=== PATIENT | female | born 1975 | race Hispanic/Latino ===

== ENCOUNTER 2018-02-09 20:45 | Emergency (ER) | payer BC ==
[2018-02-09 21:36] LABS: Absolute Lymphocytes (CBC) 5.5 K/uL (0.7-4.9); Absolute Monocytes 0.5 K/uL (0.1-1.3); Absolute Neutrophil 6.6 K/uL (1.8-8.0); Basophils % 0.8 % (0-1.3); Hematocrit 38.7 % (36.0-45.0); Lymphocytes % 42.6 % (15.3-44.8); MCH 30.3 pg (27.0-35.0); MCV 86.3 fL (80-100); Monocytes % 3.7 % (3.3-12.3); RBC Red Blood Cell Count 4.48 M/uL (3.86-4.86)
--- NOTE | 2018-02-09 21:37 | RAD REPORT ---
EXAM DESCRIPTION: RAD - Chest Single View - 02/09/2018 9:31 pm CLINICAL HISTORY: Chest pain. COMPARISON: 02/08/17 FINDINGS: Portable technique limits examination quality. The lungs are grossly clear. The heart is normal in size. No displaced fractures. IMPRESSION: No acute intrathoracic process suspected.
[2018-02-09 21:45] LABS: Protime INR 0.9
[2018-02-09] MEDS ORDERED: NA CHLORIDE 0.9% 1,000 ML ONE ×2 (21:48→23:51)
[2018-02-09 22:02] LABS: Glucose Level 265 mg/dL (65-120); Lipase 33 U/L (22-51)
[2018-02-09 22:04] LABS: Bicarbonate 23 mEq/L (21-31); Potassium 4.2 mEq/L (3.6-5.0); Sodium Level 133 mEq/L (135-145)
[2018-02-09 22:08] LABS: Albumin 3.6 g/dL (3.2-5.5); Alkaline Phosphatase 60 IU/L (42-121); BUN Blood Urea Nitrogen 13 mg/dL (6-20); Bilirubin Direct 0.3 mg/dL (0-0.2); Bilirubin Total 0.5 mg/dL (0.3-1.2); Magnesium 1.7 mg/dL (1.8-2.5); Protein, Total 7.8 g/dL (6.0-8.3)
[2018-02-09 22:11] LABS: ALT/SGPT 29 IU/L (10-60); AST/SGOT 40 IU/L (10-42); Creatine Phosphokinase 154 IU/L (22-269)
[2018-02-09 22:12] LABS: CKMB Creatine Kinase MB 1.7 ng/ml (0.3-4.0)
[2018-02-09] MEDS ORDERED: ACETAMINOPHEN 500 MG TAB ONE (23:16)
[2018-02-10 00:07] LABS: Urine Blood 1+ (NEG); Urine Glucose 2+ (NEG)
[2018-02-10 00:08] LABS: Urine Protein NEGATIVE (NEG)
--- NOTE | 2018-02-10 00:32 | ER ---
Nurse's Notes [facility] Name: Amie Irizarry Age: 42 yrs Sex: Female : 1975 Arrival Date: 02/09/2018 Time: 20:51 Bed 30 Private MD: Diagnosis: Dyspnea;Type 2 diabetes mellitus;Other chest pain Presentation: 02/09 20:52 Presenting complaint: Patient states: "I had strep and a sinus infection 2 weeks ago. I lk1 got an injection and 10 days on antibiotics. The cough never stopped and the last 4 days I have had chest tightness and not been able to catch my breath.". Transition of care: patient was not received from another setting of care. Onset of symptoms was February 05, 2018. Initial Sepsis Screen: Does the patient meet any 2 criteria? No. Patient's initial sepsis screen is negative. Does the patient have a suspected source of infection? No. Patient's initial sepsis screen is negative. Care prior to arrival: None. 20:52 Method Of Arrival: Ambulatory lk1 20:52 Acuity: JOSÉ 3 lk1 Triage Assessment: 20:54 General: Appears uncomfortable, ill, Behavior is calm, cooperative, appropriate for lk1 age. Pain: Complains of pain in back and chest Pain currently is 8 out of 10 on a pain scale. Respiratory: Reports cough that is dry, persistent Airway is patent Respiratory effort is even, unlabored, Respiratory pattern is regular, symmetrical, Onset: The symptoms/episode began/occurred 2 weeks ago, the patient has moderate shortness of breath. 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 - Social history:: Smoking status: Patient/guardian denies using tobacco. Screenin:39 Abuse screen: Denies threats or abuse. Nutritional screening: No deficits noted. tl3 Tuberculosis screening: No symptoms or risk factors identified. Fall Risk None identified. Assessment: 21:45 General: Appears distressed, uncomfortable, well groomed, well developed, well tl3 nourished, Behavior is cooperative, appropriate for age, restless. Pain: Complains of pain in chest and back. Neuro: Level of Consciousness is awake, alert, obeys commands, Oriented to person, place, time, situation, Appropriate for age. Cardiovascular: Capillary refill < 3 seconds in bilateral fingers Patient's skin is warm and dry. Rhythm is regular. Respiratory: Airway is patent Trachea midline Breath sounds are clear bilaterally. GI: Reports posttussive emesis. : No signs and/or symptoms were reported regarding the genitourinary system. EENT: No signs and/or symptoms were reported regarding the EENT system. Derm: No signs and/or symptoms reported regarding the dermatologic system. Musculoskeletal: No signs and/or symptoms reported regarding the musculoskeletal system. 23:25 Reassessment: No changes from previously documented assessment. Patient and/or family tl3 updated on plan of care and expected duration. Pain level reassessed. Patient is alert, oriented x 3, equal unlabored respirations, skin warm/dry/pink. 02/10 00:53 Reassessment: No changes from previously documented assessment. Patient and/or family mb3 updated on plan of care and expected duration. Pain level reassessed. Patient is alert, oriented x 3, equal unlabored respirations, skin warm/dry/pink. 02:08 Reassessment: No changes from previously documented assessment. Patient and/or family mb3 updated on plan of care and expected duration. Pain level reassessed. Patient is alert, oriented x 3, equal unlabored respirations, skin warm/dry/pink. 02:13 Reassessment: Pt will be discharged thru [facility]. mb3 Vital Signs: 02/09 20:55 BP 147 / 80; Pulse 96; Resp 22; Temp 98.6(TE); Pulse Ox 98% on R/A; Weight 74.84 kg lk1 (R); Height 5 ft. 4 in. (162.56 cm) (R); Pain 8/10; 21:45 BP 120 / 80; Pulse 70; Resp 18; Pulse Ox 98% on R/A; tl3 23:25 BP 125 / 79; Pulse 82; Resp 16; Pulse Ox 100% on R/A; tl3 02/10 00:52 BP 118 / 85; Pulse 75; Resp 20; Temp 98.7(O); Pulse Ox 99% on R/A; mb3 01:15 BP 133 / 89; Pulse 68; Resp 18; Pulse Ox 98% on R/A; mb3 02:05 BP 122 / 81; Pulse 64; Resp 20; Pulse Ox 97% on R/A; mb3 02/09 20:55 Body Mass Index 28.32 (74.84 kg, 162.56 cm) lk1 ED Course: 02/09 20:51 Patient arrived in ED. lk1 20:53 Triage completed. lk1 20:57 Arm band placed on left wrist. lk1 21:02 Russell Sands MD is Attending Physician. opal 21:25 Inserted saline lock: 20 gauge in left antecubital area, using aseptic technique. Blood eb collected. 21:28 X-ray completed. Portable x-ray completed in exam room. Patient tolerated procedure bb2 well. 21:29 XRAY Chest (1 view) In Process Unspecified. EDMS 21:30 Radiology exam delayed due to lab results not completed at this time. test mw3 not completed at this time. 21:42 Radiology exam delayed due to lab results not completed at this time. test vm2 not completed at this time. 21:43 Melly Chavez, RN is Primary Nurse. tl3 21:44 Basic Metabolic Panel Sent. tl3 21:55 EKG done, by ED staff, reviewed by Russell Sands MD. eb 22:16 Radiology exam delayed due to test not completed at this time. mw3 22:39 Patient has correct armband on for positive identification. Placed in gown. Bed in low tl3 position. Call light in reach. Side rails up X 1. Adult w/ patient. Pulse ox on. NIBP on. 22:39 No provider procedures requiring assistance completed. tl3 23:02 Inserted saline lock: 20 gauge in right forearm, using aseptic technique. IV tl3 discontinued, intact, bleeding controlled, No redness/swelling at site. Pressure dressing applied. 23:[address] via stretcher. nj 23:31 CT completed. Patient tolerated procedure well. nj 23:32 Patient moved back from CT. nj 23:34 CT Chest For PE Angio In Process Unspecified. EDMS 02/10 00:29 Ana Lilia Elias MD is Hospitalizing Provider. opal 02:13 IV discontinued, intact, bleeding controlled, No redness/swelling at site. Pressure mb3 dressing applied. Administered Medications: 02/09 21:59 Drug: NS 0.9% 1000 ml Route: IV; Rate: 1 bolus; Site: left antecubital; Delivery: tl3 Primary tubing; 02/10 02:31 Follow up: Response: No adverse reaction; IV Status: Completed infusion; IV Intake: mb3 1000ml 00:23 Drug: NS 0.9% 1000 ml Route: IV; Rate: 125 ml/hr; Site: left antecubital; mb3 02:32 Follow up: Response: No adverse reaction; IV Status: Order to discontinue infusion; IV mb3 Intake: 175ml 00:51 Drug: Aspirin 162 mg Route: PO; mb3 02:30 Follow up: Response: No adverse reaction mb3 00:51 Drug: Lovenox 1 mg/kg Route: Sub-Q; Site: right lower abdomen; mb3 02:29 Follow up: Response: No adverse reaction mb3 00:51 Drug: Pepcid 20 mg Route: IVP; Site: right antecubital; mb3 02:29 Follow up: Response: No adverse reaction mb3 00:52 Drug: Magnesium Sulfate 1 grams Route: IVPB; Infused Over: 1 hrs; Site: right mb3 antecubital; 02:31 Follow up: Response: No adverse reaction; IV Status: Completed infusion; IV Intake: mb3 100ml Intake: 02:31 IV: 100ml; Total: 100ml. mb3 02:31 IV: 1000ml; Total: 1100ml. mb3 02:32 IV: 175ml; Total: 1275ml. mb3 Outcome: 00:30 Decision to Hospitalize by Provider. opal 02:18 Discharged to home ambulatory. mb3 02:18 Condition: stable 02:18 Discharge instructions given to patient, Instructed on discharge instructions, follow up and referral plans. Demonstrated understanding of instructions, follow-up care. 02:37 Patient left the ED. mb3 Signatures: Dispatcher [employer] EDMS Russell Sands MD MD cha Kluge, Leah, RN RN lk1 Joseph Maciel Victoria vm2 Hortencia Juarez Tammy, RN RN tl3 Helen Kumari Mark RN RN mb3 Mary Macias mw3 Corrections: (The following items were deleted from the chart) 02/09 21:31 21:30 Radiology exam delayed due to lab results not completed at this time. mw3 (BUN/Creatinine) mw3 23:05 22:45 IV Status: IV infiltrated; IV Intake: 600ml tl3 tl3
--- NOTE | 2018-02-10 00:32 | EDPHYS ---
Physician Documentation [facility] Name: Amie Irizarry Age: 42 yrs Sex: Female : 1975 Arrival Date: 02/09/2018 Time: 20:51 Bed 30 Private MD: ED Physician Russell Sands HPI: 02/09 21:07 This 42 yrs old Female presents to ER via Ambulatory with complaints of opal Shortness Of Breath. 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 - Social history:: Smoking status: Patient/guardian denies using tobacco. ROS: 22:05 Constitutional: Negative for fever, chills, and weight loss, Eyes: Negative for injury, opal pain, redness, and discharge, ENT: Negative for injury, pain, and discharge, Neck: Negative for injury, pain, and swelling, Abdomen/GI: Negative for abdominal pain, nausea, vomiting, diarrhea, and constipation, Back: Negative for injury and pain, : Negative for injury, bleeding, discharge, and swelling, MS/Extremity: Negative for injury and deformity, Skin: Negative for injury, rash, and discoloration, Neuro: Negative for headache, weakness, numbness, tingling, and seizure, Psych: Negative for depression, anxiety, suicide ideation, homicidal ideation, and hallucinations, Allergy/Immunology: Negative for hives, rash, and allergies, Endocrine: Negative for neck swelling, polydipsia, polyuria, polyphagia, and marked weight changes, Hematologic/Lymphatic: Negative for swollen nodes, abnormal bleeding, and unusual bruising. 22:05 Cardiovascular: Positive for chest pain. 22:05 Respiratory: Positive for dyspnea on exertion, shortness of breath, at rest. Exam: 22:05 Constitutional: This is a well developed, well nourished patient who is awake, alert, opal and in no acute distress. Head/Face: Normocephalic, atraumatic. Eyes: Pupils equal round and reactive to light, extra-ocular motions intact. Lids and lashes normal. Conjunctiva and sclera are non-icteric and not injected. Cornea within normal limits. Periorbital areas with no swelling, redness, or edema. ENT: Nares patent. No nasal discharge, no septal abnormalities noted. Tympanic membranes are normal and external auditory canals are clear. Oropharynx with no redness, swelling, or masses, exudates, or evidence of obstruction, uvula midline. Mucous membranes moist. Neck: Trachea midline, no thyromegaly or masses palpated, and no cervical lymphadenopathy. Supple, full range of motion without nuchal rigidity, or vertebral point tenderness. No Meningismus. Chest/axilla: Normal chest wall appearance and motion. Nontender with no deformity. No lesions are appreciated. Cardiovascular: Regular rate and rhythm with a normal S1 and S2. No gallops, murmurs, or rubs. Normal PMI, no JVD. No pulse deficits. Respiratory: Lungs have equal breath sounds bilaterally, clear to auscultation and percussion. No rales, rhonchi or wheezes noted. No increased work of breathing, no retractions or nasal flaring. Abdomen/GI: Soft, non-tender, with normal bowel sounds. No distension or tympany. No guarding or rebound. No evidence of tenderness throughout. Back: No spinal tenderness. No costovertebral tenderness. Full range of motion. Female : Normal external genitalia. Skin: Warm, dry with normal turgor. Normal color with no rashes, no lesions, and no evidence of cellulitis. MS/ Extremity: Pulses equal, no cyanosis. Neurovascular intact. Full, normal range of motion. Neuro: Awake and alert, GCS 15, oriented to person, place, time, and situation. Cranial nerves II-XII grossly intact. Motor strength 5/5 in all extremities. Sensory grossly intact. Cerebellar exam normal. Normal gait. Vital Signs: 20:55 BP 147 / 80; Pulse 96; Resp 22; Temp 98.6(TE); Pulse Ox 98% on R/A; Weight 74.84 kg lk1 (R); Height 5 ft. 4 in. (162.56 cm) (R); Pain 8/10; 21:45 BP 120 / 80; Pulse 70; Resp 18; Pulse Ox 98% on R/A; tl3 23:25 BP 125 / 79; Pulse 82; Resp 16; Pulse Ox 100% on R/A; tl3 02/10 00:52 BP 118 / 85; Pulse 75; Resp 20; Temp 98.7(O); Pulse Ox 99% on R/A; mb3 01:15 BP 133 / 89; Pulse 68; Resp 18; Pulse Ox 98% on R/A; mb3 02:05 BP 122 / 81; Pulse 64; Resp 20; Pulse Ox 97% on R/A; mb3 02/09 20:55 Body Mass Index 28.32 (74.84 kg, 162.56 cm) lk1 MDM: 02/09 21:02 Patient medically screened. [facility] 02/09 21:03 Order name: Basic Metabolic Panel [facility] 02/09 21:03 Order name: BNP; Complete Time: 22:03 [facility] 02/09 21:03 Order name: CBC with Diff; Complete Time: 22:03 [facility] 02/09 21:03 Order name: Ckmb; Complete Time: 00:23 [facility] 02/09 21:03 Order name: CPK; Complete Time: 00:23 [facility] 02/09 21:03 Order name: LFT's; Complete Time: 00:23 [facility] 02/09 21:03 Order name: Magnesium; Complete Time: 00:23 [facility] 02/09 21:03 Order name: PT-INR; Complete Time: 22:03 [facility] 02/09 21:03 Order name: Ptt, Activated; Complete Time: 22:03 [facility] 02/09 21:03 Order name: Troponin (emerg Dept Use Only); Complete Time: 00:23 [facility] 02/09 21:03 Order name: Blood Culture Adult (2) [facility] 02/09 21:03 Order name: Urine Culture [facility] 02/09 21:03 Order name: Lipase; Complete Time: 00:23 [facility] 02/09 21:03 Order name: Urine Test (obtain specimen); Complete Time: 23:40 [facility] 02/09 21:03 Order name: XRAY Chest (1 view); Complete Time: 22:03 [facility] 02/09 21:03 Order name: EKG; Complete Time: 21:04 [facility] 02/09 21:04 Order name: Basic Metabolic Panel; Complete Time: 00:23 EDMS 02/09 21:07 Order name: CT Chest For PE Angio [facility] 02/09 23:18 Order name: Urine Dipstick--Ancillary (enter results) rg2 02/09 23:18 Order name: Urine --Ancillary (enter results) rg2 02/09 23:18 Order name: Urine Dipstick-Ancillary; Complete Time: 00:23 [facility] 02/09 23:18 Order name: Urine --Ancillary; Complete Time: 00:23 [facility] 02/10 00:35 Order name: CONS Physician Consult [facility] 02/09 21:03 Order name: Cardiac monitoring; Complete Time: 21:59 [facility] 02/09 21:03 Order name: EKG - Nurse/Tech; Complete Time: 21:59 [facility] 02/09 21:03 Order name: IV Saline Lock; Complete Time: 21:59 [facility] 02/09 21:03 Order name: Labs collected and sent; Complete Time: 21:59 [facility] 02/09 21:03 Order name: O2 Per Protocol; Complete Time: 22:00 [facility] 02/09 21:03 Order name: O2 Sat Monitoring; Complete Time: 22:00 [facility] 02/09 21:03 Order name: Urine Dipstick-Ancillary (obtain specimen); Complete Time: 23:39 [facility] Administered Medications: 21:59 Drug: NS 0.9% 1000 ml Route: IV; Rate: 1 bolus; Site: left antecubital; Delivery: tl3 Primary tubing; 02/10 02:31 Follow up: Response: No adverse reaction; IV Status: Completed infusion; IV Intake: mb3 1000ml 00:23 Drug: NS 0.9% 1000 ml Route: IV; Rate: 125 ml/hr; Site: left antecubital; mb3 02:32 Follow up: Response: No adverse reaction; IV Status: Order to discontinue infusion; IV mb3 Intake: 175ml 00:51 Drug: Aspirin 162 mg Route: PO; mb3 02:30 Follow up: Response: No adverse reaction mb3 00:51 Drug: Lovenox 1 mg/kg Route: Sub-Q; Site: right lower abdomen; mb3 02:29 Follow up: Response: No adverse reaction mb3 00:51 Drug: Pepcid 20 mg Route: IVP; Site: right antecubital; mb3 02:29 Follow up: Response: No adverse reaction mb3 00:52 Drug: Magnesium Sulfate 1 grams Route: IVPB; Infused Over: 1 hrs; Site: right mb3 antecubital; 02:31 Follow up: Response: No adverse reaction; IV Status: Completed infusion; IV Intake: mb3 100ml Disposition: 02/10/18 00:30 Hospitalization ordered by Ana Lilia Elias for Observation. Preliminary diagnosis are Dyspnea, Type 2 diabetes mellitus, Other chest pain. - Bed requested for Telemetry/MedSurg (observation). - Status is Observation. mb3 - Condition is Stable. - Problem is new. - Symptoms have improved. UTI on Admission? No Signatures: Dispatcher [employer] [facility] Russell Sands MD MD cha Kluge, Leah, RN RN lk1 Melly Chavez, RN RN tl3 Sohail Maxwell, RN RN mb3 Corrections: (The following items were deleted from the chart) 02/09 21:05 21:04 D-DIMER+[id number].LAB.BRZ ordered. [facility] 02/10 02:37 00:30 Hospitalization Ordered by Ana Lilia Elias MD for Observation. Preliminary mb3 diagnosis is Dyspnea; Type 2 diabetes mellitus; Other chest pain. Bed requested for Telemetry/MedSurg (observation). Status is Observation. Condition is Stable. Problem is new. Symptoms have improved. UTI on Admission? No. opal
[2018-02-10] MEDS ORDERED: ASPIRIN 81 MG CHEWABLE TABLET ONE (00:37)
[2018-02-10] MEDS ORDERED: ENOXAPARIN 80 MG/0.8 ML SQ ONE (00:38)
[2018-02-10] MEDS ORDERED: FAMOTIDINE 20 MG/2 ML VIAL IV ONE ×2 (00:38→00:39)
[2018-02-10] MEDS ORDERED: MAGNESIUM SULFATE 1 gm IVPB 1 GM/100 ML BAG IV ONE (00:38)
--- NOTE | 2018-02-10 02:00 | P.HP ---
Certification for Inpatient Patient admitted to: Observation With expected LOS: <2 Midnights Practitioner: I am a practitioner with admitting privileges, knowledge of patient current condition, hospital course, and medical plan of care. Services: Services provided to patient in accordance with Admission requirements found in Title 42 Section 412.3 of the Code of Federal Regulations Patient History Date of Service: 02/10/18 Reason for admission: chest pain History of Present Illness: Ms Irizarry is a 42 years old woman with history of DM II, HTN, who about 10 days ago she was diagnosed with Strep infection and her PCP gave her a course of antibiotics. She improved from sore throat but her cough persisted. She denied any fever or chills, cough is mostly dry. Today she was at home, and start complaining of chest pain. The pain was in sternal area, stubbing, radiated to her back, about 8/10 of intensity, worsening with breathing or chest movements, and cough. She denied nausea or vomiting, diaphoresis or dizziness. Allergies meperidine [From Demerol] Allergy (Intermediate, Verified 09/30/16 03:41) Rash Home Medications: Dexlansoprazole [Dexilant] 60 mg PO DAILY 06/03/14 Glimepiride [Amaryl] 4 mg PO DAILY 06/03/14 Gemfibrozil [Lopid*] 1 tab PO BID 09/30/16 Metformin ER [Glucophage ER*] 1,000 mg PO BIDWM 09/30/16 Metoprolol Tartrate [Lopressor*] 50 mg PO BID 09/30/16 Docusate [Colace Cap*] 100 mg PO DAILY PRN #30 cap 10/05/16 Lipase/Protease/Amylase [Mckalya Louis 36,000 Units Capsule] 1 each PO TID #90 capsule. 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 - Family History Family History: Reviewed- Non-Contributory - Social History Smoking Status: Never smoker Alcohol use: Yes CD- Drugs: No Caffeine use: Yes Place of Residence: Home Review of Systems 10-point ROS is otherwise unremarkable Physical Examination - Physical Exam General: Alert, In no apparent distress HEENT: Atraumatic, PERRLA, Mucous membr. moist/pink, EOMI, Sclerae nonicteric Neck: Supple, 2+ carotid pulse no bruit, No LAD, Without JVD or thyroid abnormality Respiratory: Clear to auscultation bilaterally, Normal air movement Cardiovascular: Regular rate/rhythm, Normal S1 S2 Gastrointestinal: Normal bowel sounds, No tenderness Musculoskeletal: Tenderness (chest wall tenderness to palpation. ) Integumentary: No rashes Neurological: Normal speech, Normal strength at 5/5 x4 extr, Normal tone, Normal affect Lymphatics: No axilla or inguinal lymphadenopathy - Studies Laboratory Data (last 24 hrs) 02/09/18 21:20: PT 10.6, INR 0.90, APTT 26.1 02/09/18 21:20: WBC 12.8 H, Hgb 13.6, Hct 38.7, Plt Count 350 02/09/18 21:20: B-Natriuretic Peptide 16 02/09/18 21:20: Sodium 133 L, Potassium 4.2, BUN 13, Creatinine 0.68, Glucose 265 H, Magnesium 1.7 L, Total Bilirubin 0.5, AST 40, ALT 29, Alkaline Phosphatase 60, Lipase 33 Assessment and Plan - Problems (Diagnosis) (1) Atypical chest pain Current Visit: Yes Status: Acute (2) Diabetes mellitus Onset Date: 09/30/16 Current Visit: No Status: Chronic Qualifiers: Diabetes mellitus type: type 2 Diabetes 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 The pain is atypical in nature, reproducible with chest palpation, worsening with breathing movements. CTA chest was negative for PE. EKG no ST-T abnormalities, trop I negative. I think her chest pain is related to muscle spasm related her recent upper respiratory infection and persistent cough. I will discharge the patient home with symptomatic medication for pain. F/U with her PCP next week if symptoms do not improve. - Advance Directives Does patient have a Living Will: No Does patient have a Durable POA for Healthcare: No - Code Status/Comfort Care Code Status Assessed: Yes Code Status: Full Code
[2018-02-10 02:49] VITALS: TEMP 98.7
[2018-02-10 02:51] VITALS: BP 122/81; O2SAT 97
--- NOTE | 2018-02-10 06:30 | EKG ---
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
--- NOTE | 2018-02-10 08:32 | RAD REPORT ---
EXAM DESCRIPTION: CT - Chest For Pe Angio - 02/10/2018 6:33 am CLINICAL HISTORY: Cough, fever, chest tightness, shortness of breath, prior cholecystectomy, breast reduction and abdominoplasty A preliminary written report was provided at the time of the study, and the report was reviewed prio r to final dictation. COMPARISON: Chest films same date, PE study March 2013 TECHNIQUE: Dynamically enhanced 3 mm thick images of the chest were obtained during administration o f approximately 150mL Isovue 370 IV contrast. Coronal and oblique reconstruction images were generate d and reviewed. Exam utilizes a protocol to evaluate the pulmonary arterial tree. All CT scans are performed using dose optimization technique as appropriate and may include automated exposure control or mA/KV adjustment according to patient size. FINDINGS: No pulmonary emboli are identified. The aorta as imaged shows no acute or suspicious finding. No pericardial thickening or effusion. No infiltrate or mass in the lung parenchyma. No pleural effusion or pleural thickening. No mediastinal or hilar suspicious masses. No chest wall masses or abnormal axillary lymphadenopathy. IMPRESSION: No pulmonary emboli identified. No other significant or suspicious findings.
== END 2018-02-10 02:34 | disposition home or self-care (01) ==
LOC: ER 20:45 → UNDOADMOB 02-10 00:32 → ERHOLD 02-10 00:32 → UNDODISOB 02-10 02:34 → ER 02-10 02:34
DX: R07.89 Other chest pain (principal); E11.9 Type 2 diabetes mellitus without complications; I10 Essential (primary) hypertension; Z88.5 Allergy status to narcotic agent
CPT/HCPCS: 36415; 71045; 71275; 80048; 80076; 81003; 81025; 82550; 82553; 83690; 83735; 83880; 84484; 85025; 85610; 85730; 93005; 96361; 96365; 96366; 96372; 96375; 99284; G0378; J1650; J3475; J7030

== ENCOUNTER 2018-09-28 00:41 | Emergency (ER) | payer BC ==
--- OUTSIDE RECORDS SUMMARY | 2018-09-28 00:43 | XMS REPORT ---
:1975 Author Organization [facility] Address [address] [place] [address] Care Team Providers Name Role Phone Unavailable Unavailable Unavailable Problems This patient has no known problems. Allergies, Adverse Reactions, Alerts This patient has no known allergies or adverse reactions. Medications This patient has no known medications.
[2018-09-28] MEDS ORDERED: DIPHENHYDRAMINE 50 MG/ML VIAL ONE (01:22)
[2018-09-28] MEDS ORDERED: FAMOTIDINE 20 MG/2 ML VIAL IV ONE (01:22)
[2018-09-28] MEDS ORDERED: predniSONE 20 MG TAB ONE (01:22)
[2018-09-28] MEDS ORDERED: METHYLPREDNISOLONE 125 MG INJ ONE (01:22)
[2018-09-28] MEDS ORDERED: NA CHLORIDE 0.9% 1,000 ML ONE (01:22)
[2018-09-28 01:43] LABS: Absolute Lymphocytes (CBC) 4.4 K/uL (0.7-4.9); Absolute Monocytes 0.6 K/uL (0.1-1.3); Absolute Neutrophil 4.2 K/uL (1.8-8.0); Basophils % 0.7 % (0-1.3); Eosinophils % 0.4 % (0-4.4); Lymphocytes % 47.2 % (15.3-44.8); MPV 10.1 fL (7.6-11.3); Monocytes % 6.8 % (3.3-12.3); RBC Red Blood Cell Count 4.67 M/uL (3.86-4.86)
[2018-09-28 02:42] LABS: ALT/SGPT 63 U/L (12-78); AST/SGOT 47 U/L (15-37); Albumin 3.1 g/dL (3.4-5.0); Alkaline Phosphatase 90 U/L (45-117); BUN Blood Urea Nitrogen 9 mg/dL (7-18); Bicarbonate 24 mmol/L (21-32); Bilirubin Total 0.3 mg/dL (0.2-1.0); Glucose Level 172 mg/dL (74-106); Potassium 3.8 mmol/L (3.5-5.1); Protein, Total 7.1 g/dL (6.4-8.2); Sodium Level 140 mmol/L (136-145)
--- NOTE | 2018-09-28 03:07 | ER ---
Nurse's Notes [facility] Name: Amie Irizarry Age: 42 yrs Sex: Female : 1975 Arrival Date: 09/28/2018 Time: 00:44 Bed 5 Private MD: Diagnosis: Angioneurotic edema;Urticaria Presentation: 09/28 00:45 Presenting complaint: Patient states: that was taking Macrobid for the past 4 days and fc it gave her a yeast infection. She then took Diflucan at 2300 tonight and woke up at 0010 with redness, whelps and severe itching all of body. Transition of care: patient was not received from another setting of care. Onset: The symptoms/episode began/occurred suddenly. Anaphylaxis evaluation, the patient reports or I have noted the following symptoms which indicate a significant risk of anaphylaxis: no signs or symptoms of anaphylaxis were noted. Onset of symptoms was September 28, 2018 at 00:10. Risk Assessment: Do you want to hurt yourself or someone else? Patient reports no desire to harm self or others. Initial Sepsis Screen: Does the patient meet any 2 criteria? No. Patient's initial sepsis screen is negative. Does the patient have a suspected source of infection? No. Patient's initial sepsis screen is negative. Care prior to arrival: None. 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 - Social history:: Smoking status: Patient/guardian denies using tobacco. - Ebola Screening: : Patient negative for fever greater than or equal to 101.5 degrees Fahrenheit, and additional compatible Ebola Virus Disease symptoms Patient denies exposure to infectious person Patient denies travel to an Ebola-affected area in the 21 days before illness onset. - Family history:: not pertinent. Screenin:55 Abuse screen: Denies threats or abuse. Nutritional screening: No deficits noted. Tuberculosis screening: No symptoms or risk factors identified. Fall Risk None identified. Assessment: 00:53 General: Appears uncomfortable, Behavior is appropriate for age. Pain: Complains of lp1 pain in generalized. Neuro: Level of Consciousness is awake, alert, obeys commands. Cardiovascular: No deficits noted. Respiratory: Airway is patent Respiratory effort is even, unlabored, Breath sounds are clear bilaterally. GI: No deficits noted. : No deficits noted. EENT: No deficits noted. Derm: redness to general body, Reports burning, itching. Musculoskeletal: No deficits noted. 02:00 Reassessment: Patient appears in no apparent distress at this time. Patient and/or lp1 family updated on plan of care and expected duration. Pain level reassessed. Patient states feeling better. 03:00 Reassessment: Patient appears in no apparent distress at this time. Patient and/or lp1 family updated on plan of care and expected duration. Pain level reassessed. Patient states feeling better. Patient states symptoms have improved. Vital Signs: 00:45 BP 167 / 119; Pulse 81; Resp 20; Temp 97.9(O); Pulse Ox 100% on R/A; Weight 75.75 kg (R); Height 5 ft. 3 in. (160.02 cm) (R); Pain 0/10; 01:25 BP 158 / 102; Pulse 73; Resp 18; Pulse Ox 99% on R/A; lp1 01:59 BP 145 / 99; Pulse 67; Resp 18; Pulse Ox 98% on R/A; lp1 03:11 BP 134 / 93; Pulse 68; Resp 18; Pulse Ox 98% on R/A; lp1 00:45 Body Mass Index 29.58 (75.75 kg, 160.02 cm) ED Course: 00:44 Patient arrived in ED. es 00:45 Arm band placed on Patient placed in an exam room, on a stretcher. 00:48 Debby Maya, RN is Primary Nurse. lp1 00:53 Triage completed. 00:55 Patient has correct armband on for positive identification. Bed in low position. Call light in reach. 00:55 No provider procedures requiring assistance completed. 00:58 Russell Sands MD is Attending Physician. opal 01:05 Inserted saline lock: 20 gauge in right antecubital area, using aseptic technique. lp1 Blood collected. 01:59 Lab(s) recollected, by me, sent to lab. lp1 03:34 IV discontinued, No redness/swelling at site. Pressure dressing applied. lp1 Administered Medications: 01:24 Drug: NS 0.9% 1000 ml Route: IV; Rate: 1 bolus; Site: right antecubital; lp1 02:30 Follow up: IV Status: Completed infusion; IV Intake: 1000ml lp1 01:24 Drug: Benadryl 50 mg Route: IVP; Site: right antecubital; lp1 02:00 Follow up: Response: No adverse reaction; Marked relief of symptoms lp1 01:24 Drug: Pepcid 40 mg Route: IVP; Site: right antecubital; lp1 02:00 Follow up: Response: No adverse reaction; Marked relief of symptoms lp1 01:24 Drug: SOLU-Medrol 125 mg Route: IVP; Site: right antecubital; lp1 02:00 Follow up: Response: No adverse reaction; Marked relief of symptoms lp1 01:25 Drug: predniSONE 40 mg Route: PO; lp1 02:00 Follow up: Response: No adverse reaction; Marked relief of symptoms lp1 Intake: 02:30 IV: 1000ml; Total: 1000ml. lp1 Outcome: 03:06 Discharge ordered by . [facility] 03:34 Discharged to home ambulatory, with friend. lp1 03:34 Condition: good 03:34 Discharge instructions given to patient, Instructed on discharge instructions, follow up and referral plans. medication usage, Demonstrated understanding of instructions, follow-up care, medications, Prescriptions given X 4. 03:34 Patient left the ED. lp1 Signatures: Russell Sands MD MD cha Salyer, Edna es Chretien, Felicia RN RN Debby Maya RN RN lp
--- NOTE | 2018-09-28 03:07 | EDPHYS ---
Physician Documentation [facility] Name: Amie Irizarry Age: 42 yrs Sex: Female : 1975 Arrival Date: 09/28/2018 Time: 00:44 Bed 5 Private MD: ED Physician Russell Sands HPI: 09/28 01:03 This 42 yrs old Female presents to ER via Ambulatory with complaints of opal Allergic Reaction. 01:03 The patient presents with difficulty swallowing, diffuse swelling, nasal itching, opal swelling of the lips, swelling of the tongue. Onset: The symptoms/episode began/occurred just prior to arrival. Associated signs and symptoms: Pertinent positives: hives, rash, swelling. Possible causes: diflucan. At home the patient or guardian has treated the symptoms with nothing. The patient has not experienced similar symptoms in the past. 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 - Social history:: Smoking status: Patient/guardian denies using tobacco. - Ebola Screening: : Patient negative for fever greater than or equal to 101.5 degrees Fahrenheit, and additional compatible Ebola Virus Disease symptoms Patient denies exposure to infectious person Patient denies travel to an Ebola-affected area in the 21 days before illness onset. - Family history:: not pertinent. ROS: 01:03 Constitutional: Negative for fever, chills, and weight loss, Eyes: Negative for injury, opal pain, redness, and discharge, ENT: Negative for injury, pain, and discharge, Neck: Negative for injury, pain, and swelling, Cardiovascular: Negative for chest pain, palpitations, and edema, Abdomen/GI: Negative for abdominal pain, nausea, vomiting, diarrhea, and constipation, Back: Negative for injury and pain, : Negative for injury, bleeding, discharge, and swelling, MS/Extremity: Negative for injury and deformity, Skin: Negative for injury, rash, and discoloration, Neuro: Negative for headache, weakness, numbness, tingling, and seizure, Psych: Negative for depression, anxiety, suicide ideation, homicidal ideation, and hallucinations, Allergy/Immunology: Negative for hives, rash, and allergies, Endocrine: Negative for neck swelling, polydipsia, polyuria, polyphagia, and marked weight changes, Hematologic/Lymphatic: Negative for swollen nodes, abnormal bleeding, and unusual bruising. 01:03 ENT: Positive for 01:03 Respiratory: Positive for cough, with no reported sputum. 01:03 Skin: Positive for rash, diffusely. Exam: 01:03 Constitutional: This is a well developed, well nourished patient who is awake, alert, opal and in no acute distress. Eyes: Pupils equal round and reactive to light, extra-ocular motions intact. Lids and lashes normal. Conjunctiva and sclera are non-icteric and not injected. Cornea within normal limits. Periorbital areas with no swelling, redness, or edema. ENT: Nares patent. No nasal discharge, no septal abnormalities noted. Tympanic membranes are normal and external auditory canals are clear. Oropharynx with no redness, swelling, or masses, exudates, or evidence of obstruction, uvula midline. Mucous membranes moist. Neck: Trachea midline, no thyromegaly or masses palpated, and no cervical lymphadenopathy. Supple, full range of motion without nuchal rigidity, or vertebral point tenderness. No Meningismus. Chest/axilla: Normal chest wall appearance and motion. Nontender with no deformity. No lesions are appreciated. Cardiovascular: Regular rate and rhythm with a normal S1 and S2. No gallops, murmurs, or rubs. Normal PMI, no JVD. No pulse deficits. Respiratory: Lungs have equal breath sounds bilaterally, clear to auscultation and percussion. No rales, rhonchi or wheezes noted. No increased work of breathing, no retractions or nasal flaring. Abdomen/GI: Soft, non-tender, with normal bowel sounds. No distension or tympany. No guarding or rebound. No evidence of tenderness throughout. Back: No spinal tenderness. No costovertebral tenderness. Full range of motion. MS/ Extremity: Pulses equal, no cyanosis. Neurovascular intact. Full, normal range of motion. Neuro: Awake and alert, GCS 15, oriented to person, place, time, and situation. Cranial nerves II-XII grossly intact. Motor strength 5/5 in all extremities. Sensory grossly intact. Cerebellar exam normal. Normal gait. Psych: Awake, alert, with orientation to person, place and time. Behavior, mood, and affect are within normal limits. 01:03 Head/face: Noted is swelling, that is mild, of the right eye, nose, left eye, mouth and right cheondoism. 01:03 Skin: Appearance: Color: erythematous, Temperature: normal temperature, Moisture: normal moisture, petechiae, not noted, ecchymosis, not noted, flushing, not noted, urticaria. Vital Signs: 00:45 BP 167 / 119; Pulse 81; Resp 20; Temp 97.9(O); Pulse Ox 100% on R/A; Weight 75.75 kg fc (R); Height 5 ft. 3 in. (160.02 cm) (R); Pain 0/10; 01:25 BP 158 / 102; Pulse 73; Resp 18; Pulse Ox 99% on R/A; lp1 01:59 BP 145 / 99; Pulse 67; Resp 18; Pulse Ox 98% on R/A; lp1 03:11 BP 134 / 93; Pulse 68; Resp 18; Pulse Ox 98% on R/A; lp1 00:45 Body Mass Index 29.58 (75.75 kg, 160.02 cm) MDM: 00:58 Patient medically screened. [facility] 03:08 Data reviewed: vital signs, nurses notes, lab test result(s), CBC, electrolytes. [facility] 09/28 01:03 Order name: CBC with Diff; Complete Time: 01:53 [facility] 09/28 02:24 Order name: Comprehensive Metabolic Panel; Complete Time: 03:06 EDMS Administered Medications: 01:24 Drug: NS 0.9% 1000 ml Route: IV; Rate: 1 bolus; Site: right antecubital; lp1 02:30 Follow up: IV Status: Completed infusion; IV Intake: 1000ml 1 01:24 Drug: Benadryl 50 mg Route: IVP; Site: right antecubital; lp1 02:00 Follow up: Response: No adverse reaction; Marked relief of symptoms lp1 01:24 Drug: Pepcid 40 mg Route: IVP; Site: right antecubital; lp1 02:00 Follow up: Response: No adverse reaction; Marked relief of symptoms lp1 01:24 Drug: SOLU-Medrol 125 mg Route: IVP; Site: right antecubital; lp1 02:00 Follow up: Response: No adverse reaction; Marked relief of symptoms lp1 01:25 Drug: predniSONE 40 mg Route: PO; lp1 02:00 Follow up: Response: No adverse reaction; Marked relief of symptoms lp1 Disposition: 09/28/18 03:06 Discharged to Home. Impression: Angioneurotic edema, Urticaria. - Condition is Stable. - Discharge Instructions: Hives, Angioedema, Angioedema, Evry-sf-Tnor, Hives, Vsza-af-[id number], Allergies, Qmrd-en-[id number]. - Prescriptions for Benadryl 25 mg Oral Capsule - take 1 capsule by ORAL route every 6 hours As needed; 30 tablet. Pepcid 20 mg Oral Tablet - take 1 tablet by ORAL route every 12 hours for 10 days; 20 tablet. Prednisone 20 mg Oral Tablet - take 2 tablet by ORAL route once daily for 5 days; 10 tablet. EpiPen 0.3 mg Injection auto- injector - inject 1 pen by INTRAMUSCULAR route one time Inject into the outer portion of the thigh, through clothing if necessary. Indicated in the emergency treatment of allergic reactions; 1 Container. - Medication Reconciliation Form, Thank You Letter, Antibiotic Education, Prescription Opioid Use form. - Follow up: Private Physician; When: 2 - 3 days; Reason: Recheck today's complaints, Continuance of care, Re-evaluation by your physician. - Problem is new. - Symptoms have improved. Signatures: Dispatcher [employer] EDDC Russell Sands MD MD cha Chretien, Felicia, RN RN Debby Henry RN RN lp1 Corrections: (The following items were deleted from the chart) 02:24 01:03 COMPREHENSIVE METABOLIC PANEL+C.LAB.BRZ ordered. [facility] EDDC 03:34 03:06 09/28/2018 03:06 Discharged to Home. Impression: Angioneurotic edema; Urticaria. lp1 Condition is Stable. Discharge Instructions: Hives, Angioedema, Angioedema, Lsin-id-Gsyq, Hives, Tkik-ef-Bsgg, Allergies, Iivb-wd-Thxm. Prescriptions for Benadryl 25 mg Oral Capsule - take 1 capsule by ORAL route every 6 hours As needed; 30 tablet, Pepcid 20 mg Oral Tablet - take 1 tablet by ORAL route every 12 hours for 10 days; 20 tablet, Prednisone 20 mg Oral Tablet - take 2 tablet by ORAL route once daily for 5 days; 10 tablet, EpiPen 0.3 mg Injection auto-injector - inject 1 pen by INTRAMUSCULAR route one time Inject into the outer portion of the thigh, through clothing if necessary. Indicated in the emergency treatment of allergic reactions; 1 Container. and Forms are Medication Reconciliation Form, Thank You Letter, Antibiotic Education, Prescription Opioid Use. Follow up: Private Physician; When: 2 - 3 days; Reason: Recheck today's complaints, Continuance of care, Re-evaluation by your physician. Problem is new. Symptoms have improved. opal
[2018-09-28 03:49] VITALS: TEMP 97.9
[2018-09-28 03:51] VITALS: O2SAT 98
[2018-09-28 03:53] VITALS: BP 134/93
== END 2018-09-28 03:34 | disposition home or self-care (01) ==
LOC: ER 00:41
DX: T78.3XXA Angioneurotic edema, initial encounter (principal); I10 Essential (primary) hypertension; E11.9 Type 2 diabetes mellitus without complications; Z79.4 Long term (current) use of insulin; Z88.5 Allergy status to narcotic agent
CPT/HCPCS: 36415; 80053; 85025; 96361; 96374; 96375; 99284; J2930; J7030; J7512

== ENCOUNTER 2018-12-28 18:21 | Emergency (ER) | payer BC ==
--- OUTSIDE RECORDS SUMMARY | 2018-12-28 18:23 | XMS REPORT ---
:1975 [facility] Address [address] [place] [address] Dr. Jean [address] [place] [id number] Care Team Providers Name Role Phone Unavailable Unavailable Unavailable Problems This patient has no known problems. Allergies, Adverse Reactions, Alerts This patient has no known allergies or adverse reactions. Medications This patient has no known medications.
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
[2018-12-28 19:43] VITALS: BP 134/94; TEMP 97.9; O2SAT 99
== END 2018-12-28 19:39 | disposition left against medical advice (07) ==
LOC: ER 18:21
DX: M54.2 Cervicalgia (principal); M25.511 Pain in right shoulder; R42 Dizziness and giddiness; E11.9 Type 2 diabetes mellitus without complications; I10 Essential (primary) hypertension; Z53.21 Procedure and treatment not carried out due to patient leaving prior to being seen by health care provider
CPT/HCPCS: 99281

== ENCOUNTER 2019-06-06 10:51 | Emergency (ER) | payer BC ==
--- OUTSIDE RECORDS SUMMARY | 2019-06-06 10:55 | XMS REPORT ---
:1975 [facility] Address [address] [place] [address] Dr. Jean [address] [place] [id number] Care Team Providers Name Role Phone Unavailable Unavailable Unavailable Problems This patient has no known problems. Allergies, Adverse Reactions, Alerts This patient has no known allergies or adverse reactions. Medications This patient has no known medications.
--- OUTSIDE RECORDS SUMMARY | 2019-06-06 10:55 | XMS REPORT | Summary of Care ---
:1975 Author Organization [facility] Address [address] [place] [id number] Care Team Providers Name Role Phone Helen Ugalde MD Primary Care Provider Encounter Details Date Type Department Care Team Description 05/16/2019 Hospital Encounter HR EMPLOYEE [facility], [address] [facility] [address] [place] [address] [facility] [address] [place] [address] Allergies Active Allergy Reactions Severity Noted Date Comments Meperidine Hcl Rash, Shortness of Breath 10/07/2016 Fluconazole Swelling 10/01/2018 documented as of this encounter (statuses as of 05/19/2019) Medications Medication Sig Dispensed Refills Start Date End Date Status njptex-mounteqm-lqsedkn Take 36,000 60 capsule 3 11/21/2016 Active (CREON) 36,000-114,000- Units by mouth 180,000 unit 2 (two) times CpDRIndications: Acute daily. pancreatitis, unspecified complication status, unspecified pancreatitis type Blood-Glucose Meter Misc Use to check 1 Each 0 11/30/2016 Active blood glucose 3X daily. Dx Code E11.9 meloxicam 7.5 mg Take 7.5mg as 60 tablet 3 10/03/2017 Active tabletIndications: needed for Intractable migraine headache/migra without status ine. If not migrainosus, unspecified better after 1 migraine type, Muscle pill may take spasm 2. May take 2 pills in 24 hours maximum. albuterol 90 Inhale 2 Puffs 0 Active mcg/actuation inhaler every 6 (six) hours as needed for Wheezing or Shortness of Breath. lisinopril-hydrochlorothi Take 1 tablet 0 08/22/2018 Active azide 20-25 mg per tablet by mouth daily. metoprolol tartrate 100 Take 1 tablet 0 08/22/2018 Active mg tablet by mouth 2 (two) times daily. PNEUMOVAX 23 25 mcg/0.5 0 10/20/2018 Active mL miSOPROStol 200 mcg Take 1 tablet 2 tablet 0 12/13/2018 Active tabletIndications: by mouth Abnormal uterine bleeding SEE-INSTRUCTIO NS. Take one tab the night before and one tab the morning of procedure medroxyPROGESTERone Take 1 tablet 10 tablet 0 12/13/2018 Active (PROVERA) 10 mg by mouth tabletIndications: daily. Abnormal uterine bleeding fluconazole (DIFLUCAN) Take 1 tablet 1 tablet 0 12/14/2018 Active 200 mg tabletIndications: by mouth Yeast vaginitis daily. Insulin Lisp & Lisp Prot, inject 35 70 mL 1 12/19/2018 Active Hum, (HUMALOG MIX 75-25 Units under KWIKPEN) 100 unit/mL the skin 2 (75-25) (two) times injectionIndications: daily before Uncontrolled type 2 breakfast and diabetes mellitus without dinner. complication, without long-term current use of insulin LOVAZA, stqvt-0-mwoq Take 2 360 capsule 1 12/19/2018 Active ethyl esters, 1 gram capsules by capsuleIndications: mouth 2 (two) Dyslipidemia times daily. gemfibrozil 600 mg Take 1 tablet 180 tablet 1 12/19/2018 Active tabletIndications: by mouth 2 Dyslipidemia (two) times daily before breakfast and dinner. phentermine 37.5 mg Take 1 tablet 90 tablet 1 12/19/2018 Active tabletIndications: Weight by mouth gain daily. Insulin [place], BID, DX:E11.9 100 Each 01/16/2019 Active Disposable, (BD ULTRAFINE III MINI PEN) 31 gauge x 3/16" NdleIndications: Uncontrolled type 2 diabetes mellitus without complication, without long-term current use of insulin blood sugar diagnostic Use as 300 Strip 01/16/2019 Active (ONETOUCH VERIO) strip directed, TID, DX:E11.9 lancets (ONETOUCH DELICA Use as 300 Each 01/16/2019 Active LANCETS) 30 gauge Misc directed, TID, DX:E11.9 valACYclovir 500 mg Take 1 tablet 30 tablet 6 05/06/2019 Active tablet by mouth daily. 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 HLD (hyperlipidemia) 11/04/2014 Hypertriglyceridemia 11/04/2014 H/O acute pancreatitis 11/04/2014 Urinary tract infection, site not specified 11/04/2014 Fatigue 11/04/2014 Muscle cramp 11/04/2014 Falling hair 11/04/2014 Anovulatory amenorrhea 11/04/2014 Vitamin D deficiency 11/04/2014 Myalgia 11/04/2014 Weight gain 11/04/2014 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 Diabetes 10/15/2014 GERD (gastroesophageal reflux disease) 10/15/2014 Essential hypertension, benign 10/15/2014 Edema 10/15/2014 documented as of this encounter (statuses as of 05/19/2019) Resolved Problems Problem Noted Date Resolved Date Obesity 11/04/2014 11/04/2014 documented as of this encounter (statuses as of 05/19/2019) Immunizations Name Administration Dates Next Due HEPATITIS A 07/22/2008, 09/21/2005 Hep B, Adol or Pedi Dosage 02/03/2018, 08/27/2008, 07/22/2008 Influenza Virus Vaccine 07/03/2017 Influenza Virus Vaccine - Whole 06/25/2018 MMR 12/14/2016 Pneumococcal Polysaccharide, PPSV23 10/20/2018 (PNEUMOVAX) Td 07/22/2008 Tdap 12/14/2016 Varicella (varivax)(chicken pox) 12/14/2016 documented as of this encounter Social History Tobacco Use Types Packs/Day Years Used Date Never Smoker Smokeless Tobacco: Never Used Alcohol Use Drinks/Week oz/Week Comments Yes 2 Glasses of wine 1.0 Occasional Sex Assigned at Date Recorded Not on file Job Start Date Occupation Industry Not on file Not on file Not on file Travel History Travel Start Travel End No recent travel history available. documented as of this encounter Last Filed Vital Signs Not on filedocumented in this encounter Plan of Treatment Date Type Specialty Care Team Description 01/23/2020 Office Visit Obstetrics & Gynecology Yady French MD [address] [place] [address] [place] [address] [phone] Health Maintenance Due Date Last Done Comments URINE MICROALBUMIN 02/09/2018 02/09/2017 LDL-C 12/08/2018 12/08/2017, 03/13/2017, 02/09/2017, Additional history exists CREATININE (SERUM) 02/06/2019 02/06/2018, 02/09/2017, 03/24/2016, Additional history exists EYE EXAM 04/26/2019 04/26/2018 FOOT EXAM 05/23/2019 05/23/2018, 05/23/2018, 12/08/2017, Additional history exists INFLUENZA VACCINE (#1) 2019 06/25/2018, 07/03/2017 HgA1C 06/21/2019 12/19/2018, 05/23/2018, 12/08/2017, Additional history exists MAMMOGRAM 01/17/2020 01/16/2019, 12/18/2017 PAP SMEAR 04/21/2020 04/21/2015, 05/02/2007 DTaP,Tdap,and Td Vaccines (2 - Td) 12/14/2026 12/14/2016, 07/22/2008 PNEUMOCOCCAL 0-64 YEARS COMBINED Completed 10/20/2018 SERIES documented as of this encounter Results Not on filedocumented in this encounter
--- OUTSIDE RECORDS SUMMARY | 2019-06-06 10:55 | XMS REPORT | Summary of Care ---
:1975 Author Organization [facility] - Health Address [address] [place] [address] Care Team Providers Name Role Phone Helen Ugalde MD Primary Care Provider Encounter Details Date Type Department Care Team Description 05/09/2019 Orders Only [facility] Doctor Unassigned, No [address] [facility] Name [place] [id number] [address] [place] [id number] Allergies Active Allergy Reactions Severity Noted Date Comments Meperidine Hcl Rash, Shortness of Breath 10/07/2016 Fluconazole Swelling 10/01/2018 documented as of this encounter (statuses as of 05/20/2019) Medications Medication Sig Dispensed Refills Start Date End Date Status rufuix-pyfevjon-bgtyveq Take 36,000 60 capsule 3 11/21/2016 Active (CREON) 36,000-114,000- Units by mouth 180,000 unit 2 (two) times CpDRIndications: Acute daily. pancreatitis, unspecified complication status, unspecified pancreatitis type Blood-Glucose Meter [facility] Use to check 1 Each 0 11/30/2016 [...] Active tabletIndications: by mouth Abnormal uterine bleeding SEE-INSTRUCTSERGE NS. Take one tab the night before [...] without long-term current use of insulin LOVAZA, dbstp-9-dqtb Take 2 360 capsule 1 12/19/2018 Active ethyl esters, 1 gram capsules by capsuleIndications: mouth 2 (two) Dyslipidemia times daily. gemfibrozil 600 mg Take 1 tablet 180 tablet 1 12/19/2018 Active tabletIndications: by mouth 2 Dyslipidemia (two) times daily before breakfast and dinner. phentermine 37.5 mg Take 1 tablet 90 tablet 1 12/19/2018 Active tabletIndications: Weight by mouth gain daily. Insulin [place], BID, DX:E11.9 100 Each 01/16/2019 Active Disposable, (BD ULTRAFINE III MINI PEN) 31 gauge x 3/16" NdleIndications: Uncontrolled type 2 diabetes mellitus without complication, without long-term current use of insulin blood sugar diagnostic Use as 300 Strip 1 01/16/2019 Active (ONETOUCH VERIO) strip directed, TID, DX:E11.9 lancets (ONETOUCH DELICA Use as 300 Each 01/16/2019 Active LANCETS) 30 gauge Misc directed, TID, DX:E11.9 valACYclovir 500 mg Take 1 tablet 30 tablet 6 05/06/2019 Active tablet by mouth daily. documented as of this encounter (statuses as of 05/20/2019) Active Problems Problem Noted Date Dyslipidemia 02/17/2016 Palpitations 02/17/2016 Sleep-disordered breathing 02/17/2016 Overweight (BMI 25.0-29.9) 02/17/2016 Type 2 diabetes mellitus without complication 08/03/2015 Diabetes mellitus type 2, uncontrolled, without complications 11/04/2014 Overview: ICD10 Diagnosis Term Hospital Coordinator Utility HLD (hyperlipidemia) 11/04/2014 Hypertriglyceridemia 11/04/2014 H/O acute pancreatitis 11/04/2014 Urinary tract infection, site not specified 11/04/2014 Fatigue 11/04/2014 Muscle cramp 11/04/2014 Falling hair 11/04/2014 Anovulatory amenorrhea 11/04/2014 Vitamin D deficiency 11/04/2014 Myalgia 11/04/2014 Weight gain 11/04/2014 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 [address] [phone] Health Maintenance Due Date Last Done Comments [...] 10/20/2018 SERIES documented as of this encounter Procedures Procedure Name Priority Date/Time Associated Diagnosis Comments AUTHORIZATION FOR RELEASE Routine 05/09/2019 12:01 AM OF PHI CDT documented in this encounter Results Not on filedocumented in this encounter Insurance Payer Benefit Plan / Subscriber ID Effective Dates Phone Address Type Group [facility] [id number] 2014-Present PPO/POS [facility] EMPLOYEE EMPLOYEE PLAN documented as of this encounter
--- OUTSIDE RECORDS SUMMARY | 2019-06-06 10:55 | XMS REPORT | Summary of Care ---
:1975 Author Organization [facility] Address [address] [place] [id number] Care Team Providers Name Role Phone Helen Ugalde MD Primary Care Provider Reason for Visit Reason Comments Refill Request Encounter Details Date Type Department Care Team Description 05/06/2019 Refill [facility] Yady French MD Refill Request Healthcare- [address], [address] [place] [address] [place] [phone] Allergies Active Allergy Reactions Severity Noted Date Comments Meperidine Hcl Rash, Shortness of Breath 10/07/2016 Fluconazole Swelling 10/01/2018 documented as of this encounter (statuses as of 05/06/2019) Medications Medication Sig Dispensed Refills Start End Status Date Date qcqndl-tvwfkryi-qiabuyg Take 36,000 60 capsule 3 Active (CREON) 36,000-114,000- Units by 7 180,000 unit mouth 2 (two) CpDRIndications: Acute times daily. pancreatitis, unspecified complication status, unspecified pancreatitis type Blood-Glucose Meter Use to check 1 Each 0 Active Misc blood glucose 7 3X daily. Dx Code E11.9 meloxicam 7.5 mg Take 7.5mg as 60 tablet 3 Active tabletIndications: needed for 8 Intractable migraine headache/migr without status elvis. If not migrainosus, better after unspecified migraine 1 pill may type, Muscle spasm take 2. May take 2 pills in 24 hours maximum. albuterol 90 Inhale 2 0 Active mcg/actuation inhaler Puffs every 6 (six) hours as needed for Wheezing or Shortness of Breath. lisinopril-hydrochlorot Take 1 tablet 0 Active hiazide 20-25 mg per by mouth 8 tablet daily. metoprolol tartrate 100 Take 1 tablet 0 Active mg tablet by mouth 2 8 (two) times daily. PNEUMOVAX 23 25 mcg/0.5 0 Active mL 9 miSOPROStol 200 mcg Take 1 tablet 2 tablet 0 Active tabletIndications: by mouth 9 Abnormal uterine SEE-INSTRUCTI bleeding ONS. Take one tab the night before and one tab the morning of procedure medroxyPROGESTERone Take 1 tablet 10 tablet 0 Active (PROVERA) 10 mg by mouth 9 tabletIndications: daily. Abnormal uterine bleeding fluconazole (DIFLUCAN) Take 1 tablet 1 tablet 0 Active 200 mg by mouth 9 tabletIndications: daily. Yeast vaginitis Insulin Lisp & Lisp inject 35 70 mL 1 Active Prot, Hum, (HUMALOG MIX Units under 9 75-25 KWIKPEN) 100 the skin 2 unit/mL (75-25) (two) times injectionIndications: daily before Uncontrolled type 2 breakfast and diabetes mellitus dinner. without complication, without long-term current use of insulin LOVAZA, mrnir-6-xgvt Take 2 360 capsule 1 Active ethyl esters, 1 gram capsules by 9 capsuleIndications: mouth 2 (two) Dyslipidemia times daily. gemfibrozil 600 mg Take 1 tablet 180 tablet 1 Active tabletIndications: by mouth 2 9 Dyslipidemia (two) times daily before breakfast and dinner. phentermine 37.5 mg Take 1 tablet 90 tablet 1 Active tabletIndications: by mouth 9 Weight gain daily. Insulin [place], BID, DX:E11.9 100 Each Active Disposable, (BD 9 ULTRAFINE III MINI PEN) 31 gauge x 3/16" NdleIndications: Uncontrolled type 2 diabetes mellitus without complication, without long-term current use of insulin blood sugar diagnostic Use as 300 Strip Active (ONETOUCH VERIO) strip directed, 9 TID, DX:E11.9 lancets (ONETOUCH Use as 300 Each 1 Active DELICA LANCETS) 30 directed, 9 gauge Misc TID, DX:E11.9 valACYclovir 500 mg Take 1 tablet 30 tablet 6 Active tablet by mouth 9 daily. valACYclovir 500 mg Take 1 tablet 30 tablet 0 Discontinued tablet by mouth 8 019 daily. 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 HLD (hyperlipidemia) 11/04/2014 Hypertriglyceridemia 11/04/2014 H/O acute pancreatitis 11/04/2014 Urinary tract infection, site not specified 11/04/2014 Fatigue 11/04/2014 Muscle cramp 11/04/2014 Falling hair 11/04/2014 Anovulatory amenorrhea 11/04/2014 Vitamin D deficiency 11/04/2014 Myalgia 11/04/2014 Weight gain 11/04/2014 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 [place], [place] [id number] Health Maintenance Due Date Last Done Comments URINE MICROALBUMIN 02/09/2018 02/09/2017 LDL-C 12/08/2018 12/08/2017, 03/13/2017, 02/09/2017, Additional history exists CREATININE (SERUM) 02/06/2019 02/06/2018, 02/09/2017, 03/24/2016, Additional history exists EYE EXAM 04/26/2019 04/26/2018 FOOT EXAM 05/23/2019 05/23/2018, 05/23/2018, 12/08/2017, Additional history exists INFLUENZA VACCINE 05/26/2019 06/25/2018, 07/03/2017 HgA1C 06/21/2019 12/19/2018, 05/23/2018, 12/08/2017, Additional history exists MAMMOGRAM 01/17/2020 01/16/2019, 12/18/2017 PAP SMEAR 04/21/2020 04/21/2015, 05/02/2007 DTaP,Tdap,and Td Vaccines (2 - Td) 12/14/2026 12/14/2016, 07/22/2008 PNEUMOCOCCAL 0-64 YEARS COMBINED Completed 10/20/2018 SERIES documented as of this encounter Results Not on filedocumented in this encounter Insurance Payer Benefit Plan / Subscriber ID Effective Dates Phone Address Type Group [facility] [employer] [place] [id number] 2014-Present PPO/POS [facility] [employer] [employer] EMPLOYEE EMPLOYEE PLAN documented as of this encounter
[2019-06-06 11:41] LABS: Basophils % 0.5 % (0-1.3); Hematocrit 41.1 % (36.0-45.0); MPV 9.4 fL (7.6-11.3); RBC Red Blood Cell Count 4.59 M/uL (3.86-4.86)
[2019-06-06 11:51] LABS: Protime INR 1.05
[2019-06-06 12:00] LABS: ALT/SGPT 50 U/L (12-78); AST/SGOT 30 U/L (15-37); Alkaline Phosphatase 73 U/L (45-117); BUN Blood Urea Nitrogen 15 mg/dL (7-18); Bicarbonate 27 mmol/L (21-32); Bilirubin Direct 0.1 mg/dL (0-0.2); Bilirubin Total 0.6 mg/dL (0.2-1.0); Glucose Level 162 mg/dL (74-106); Magnesium 1.9 mg/dL (1.8-2.4); NT PRO-BNP 8 pg/mL (<125); Potassium 3.8 mmol/L (3.5-5.1); Protein, Total 8.4 g/dL (6.4-8.2); Sodium Level 138 mmol/L (136-145); Troponin (Emerg Dept Use Only) < 0.02 ng/mL (0.0-0.045)
[2019-06-06] MEDS ORDERED: LORazepam 2 MG/ML VIAL ONE (12:02)
--- NOTE | 2019-06-06 12:06 | RAD REPORT ---
EXAM DESCRIPTION: RAD - Chest Single View - 06/06/2019 11:59 am CLINICAL HISTORY: CHEST PAIN Chest pain. COMPARISON: Chest Single View dated 02/09/2018; Chest Single View dated 02/08/2017; Chest Pa And Lat ( 2 Views) dated 02/06/2017; CHEST SINGLE VIEW dated 04/18/2013 FINDINGS: Portable technique limits examination quality. The lungs are grossly clear. The heart is normal in size. No displaced fractures. IMPRESSION: No acute intrathoracic process suspected.
--- NOTE | 2019-06-06 15:10 | EDPHYS ---
Physician Documentation [facility] Name: Amie Irizarry Age: 43 yrs Sex: Female : 1975 Arrival Date: 06/06/2019 Time: 10:52 Bed 25 Private MD: ED Physician Janice Stover HPI: 06/06 11:34 This 43 yrs old Female presents to ER via Ambulatory with complaints of Chest ma2 Pain. 11:34 The patient or guardian reports chest pain that is located primarily in the substernal ma2 area. Onset: gradually, 1 day(s) ago. The pain does not radiate. Associated signs and symptoms: Pertinent negatives: diaphoresis, lower extremity pain, lightheadedness. The chest pain is described as burning. Duration: The patient or guardian reports multiple episodes. Severity of pain: in the emergency department the pain is unchanged. 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 - Social history:: Smoking status: Patient/guardian denies using tobacco. - Ebola Screening: : Patient negative for fever greater than or equal to 101.5 degrees Fahrenheit, and additional compatible Ebola Virus Disease symptoms Patient denies exposure to infectious person Patient denies travel to an Ebola-affected area in the 21 days before illness onset No symptoms or risks identified at this time. - Family history:: not pertinent. ROS: 11:47 Constitutional: Negative for fever, chills, and weight loss. ma2 11:47 All other systems are negative. Exam: 11:47 Constitutional: This is a well developed, well nourished patient who is awake, alert, ma2 and in no acute distress. Chest/axilla: Normal chest wall appearance and motion. Nontender with no deformity. No lesions are appreciated. Cardiovascular: reproducible chest ttp, otherwise Regular rate and rhythm with a normal S1 and S2. No gallops, murmurs, or rubs. Normal PMI, no JVD. No pulse deficits. Respiratory: Lungs have equal breath sounds bilaterally, clear to auscultation and percussion. No rales, rhonchi or wheezes noted. No increased work of breathing, no retractions or nasal flaring. Abdomen/GI: Soft, non-tender, with normal bowel sounds. No distension or tympany. No guarding or rebound. No evidence of tenderness throughout. MS/ Extremity: Pulses equal, no cyanosis. Neurovascular intact. Full, normal range of motion. Neuro: Awake and alert, GCS 15, oriented to person, place, time, and situation. Cranial nerves II-XII grossly intact. Motor strength 5/5 in all extremities. Sensory grossly intact. Cerebellar exam normal. Normal gait. Vital Signs: 11:02 BP 127 / 82; Pulse 77; Resp 20; Temp 97.8(TE); Pulse Ox 98% on R/A; Weight 68.04 kg; iw Height 5 ft. 4 in. (162.56 cm); Pain 7/10; 13:40 BP 94 / 70; Pulse 69; Resp 18; Pulse Ox 100% on R/A; mg2 11:02 Body Mass Index 25.75 (68.04 kg, 162.56 cm) iw 13:40 patient is sleeeping mg2 MDM: 11:19 Patient medically screened. ma2 11:47 Differential diagnosis: abnormal EKG, acute pericarditis, anxiety, gastroesophageal ma2 reflux disease (GERD). MARCELLO Risk Score: not applicable. 15:08 Data reviewed: vital signs, nurses notes. Counseling: I had a detailed discussion with ma2 the patient and/or guardian regarding: the historical points, exam findings, and any diagnostic results supporting the discharge/admit diagnosis, the presence of at least one elevated blood pressure reading (>120/80) during this emergency department visit, the need for outpatient follow up. 06/06 11:34 Order name: Basic Metabolic Panel; Complete Time: 12:15 EDMS 06/06 11:34 Order name: Liver (Hepatic) Function; Complete Time: 12:15 EDID 06/06 11:34 Order name: Troponin (Emerg Dept Use Only); Complete Time: 12:15 EDID 06/06 12:16 Interpretation: Within normal limits. ma2 06/06 11:35 Order name: NT PRO-BNP; Complete Time: 12:15 EDID 06/06 11:35 Order name: Magnesium; Complete Time: 12:15 EDID 06/06 11:35 Order name: CBC with Automated Diff; Complete Time: 12:15 EDID 06/06 11:35 Order name: Protime (+INR); Complete Time: 12:15 EDID 06/06 11:14 Order name: XRAY Chest (1 view); Complete Time: 12:15 06/06 11:14 Order name: EKG; Complete Time: 11:32 06/06 11:14 Order name: Cardiac monitoring; Complete Time: 11:30 06/06 11:14 Order name: EKG - Nurse/Tech; Complete Time: 11:30 06/06 11:14 Order name: IV Saline Lock; Complete Time: 11:30 06/06 11:14 Order name: Labs collected and sent; Complete Time: 11:30 06/06 11:14 Order name: O2 Per Protocol; Complete Time: 11:30 06/06 11:14 Order name: O2 Sat Monitoring; Complete Time: 11:30 06/06 14:06 Order name: Troponin (emerg Dept Use Only); Complete Time: 15:08 ma2 Administered Medications: 12:06 Drug: Ativan 2 mg Route: IVP; Site: right antecubital; mg2 13:41 Follow up: Response: No adverse reaction; Marked relief of symptoms mg2 Disposition: 06/06/19 15:09 Discharged to Home. Impression: Chest pain on breathing. - Condition is Stable. - Discharge Instructions: Chest Wall Pain. - Prescriptions for Tylenol- Codeine #3 300-30 mg Oral Tablet - take 2 tablet by ORAL route every 6 hours As needed; 30 tablet. - Medication Reconciliation Form, Thank You Letter, Antibiotic Education, Prescription Opioid Use, Work release form form. - Follow up: Private Physician; When: Today; Reason: Continuance of care. Signatures: Dispatcher [employer] Ena Bueno RN RN Valery Ford RN RN ss Janice Stover MD MD ma2 Navjot Weldon RN RN mg2 Corrections: (The following items were deleted from the chart) 12:11 11:32 BASIC METABOLIC PANEL+C.LAB.BRZ ordered. EDMS EDMS 12:11 11:32 CBC+H.LAB.BRZ ordered. EDMS EDMS 12:11 11:32 HEPATIC FUNCTION+C.LAB.BRZ ordered. EDMS EDMS 12:11 11:32 MAGNESIUM+C.LAB.BRZ ordered. EDMS EDMS 12:11 11:32 PROBNP+C.LAB.BRZ ordered. EDMS EDMS 12:11 11:32 PROTIME (+INR)+COAG.LAB.BRZ ordered. EDMS EDMS 12:12 11:32 TROPONIN (EMERG DEPT USE ONLY)+C.LAB.BRZ ordered. EDMS EDMS 12:16 12:16 Abnormal. ma2 ma2 15:43 15:09 06/06/2019 15:09 Discharged to Home. Impression: Chest pain on breathing. mg2 Condition is Stable. Discharge Instructions: Chest Wall Pain. Prescriptions for Tylenol-Codeine #3 300-30 mg Oral Tablet - take 2 tablet by ORAL route every 6 hours As needed; 30 tablet. and Forms are Medication Reconciliation Form, Thank You Letter, Antibiotic Education, Prescription Opioid Use. Follow up: Private Physician; When: Today; Reason: Continuance of care. ma2
--- NOTE | 2019-06-06 15:10 | ER ---
Nurse's Notes [facility] Name: Amie Irizarry Age: 43 yrs Sex: Female : 1975 Arrival Date: 06/06/2019 Time: 10:52 Bed 25 Private MD: Diagnosis: Chest pain on breathing Presentation: 06/06 10:59 Presenting complaint: Patient states: midsternal chest tightness X 1 hour, diff iw breathing, started sweating, almost passed out,coworkers laid her down, had a bad headache yesterday. Transition of care: patient was not received from another setting of care. Onset of symptoms was June 06, 2019. Risk Assessment: Do you want to hurt yourself or someone else? Patient reports no desire to harm self or others. Initial Sepsis Screen: Does the patient meet any 2 criteria? No. Patient's initial sepsis screen is negative. Does the patient have a suspected source of infection? No. Patient's initial sepsis screen is negative. Care prior to arrival: None. 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 - Social history:: Smoking status: Patient/guardian denies using tobacco. - Ebola Screening: : Patient negative for fever greater than or equal to 101.5 degrees Fahrenheit, and additional compatible Ebola Virus Disease symptoms Patient denies exposure to infectious person Patient denies travel to an Ebola-affected area in the 21 days before illness onset No symptoms or risks identified at this time. - Family history:: not pertinent. Screenin:15 Abuse screen: Denies threats or abuse. Denies injuries from another. Nutritional ss screening: No deficits noted. Tuberculosis screening: Never had TB. Fall Risk None identified. Assessment: 13:39 General: Appears in no apparent distress. comfortable, Behavior is calm, cooperative. mg2 Pain: Complains of pain in chest Pain radiates to back Pain began gradually. Neuro: Level of Consciousness is awake, alert, obeys commands, Oriented to person, place, time, situation. Cardiovascular: Capillary refill < 3 seconds Patient's skin is warm and dry. Respiratory: Airway is patent Respiratory effort is even, unlabored, Respiratory pattern is regular, symmetrical. GI: No signs and/or symptoms were reported involving the gastrointestinal system. : No signs and/or symptoms were reported regarding the genitourinary system. EENT: No signs and/or symptoms were reported regarding the EENT system. Derm: Skin is intact, is healthy with good turgor, Skin is pink, warm \T\ dry. normal. Musculoskeletal: Circulation, motion, and sensation intact. Capillary refill < 3 seconds. Vital Signs: 11:02 BP 127 / 82; Pulse 77; Resp 20; Temp 97.8(TE); Pulse Ox 98% on R/A; Weight 68.04 kg; iw Height 5 ft. 4 in. (162.56 cm); Pain 7/10; 13:40 BP 94 / 70; Pulse 69; Resp 18; Pulse Ox 100% on R/A; mg2 11:02 Body Mass Index 25.75 (68.04 kg, 162.56 cm) iw 13:40 patient is sleeeping mg2 ED Course: 10:52 Patient arrived in ED. as 11:01 Triage completed. iw 11:02 Arm band placed on. iw 11:11 EKG done, by cogeneration technician. reviewed by Janice Stover MD. at1 11:15 Patient has correct armband on for positive identification. Bed in low position. Call ss light in reach. orchestrator on. Pulse ox on. NIBP on. 11:15 Inserted saline lock: 22 gauge in right antecubital area, using aseptic technique. ss Blood collected. 11:15 Patient maintains SpO2 saturation greater than 95% on room air. ss 11:19 Janice Stover MD is Attending Physician. ma2 11:39 Navjot Weldon, MARLENE is Primary Nurse. mg2 11:58 XRAY Chest (1 view) In Process Unspecified. EDMS 13:40 No provider procedures requiring assistance completed. mg2 14:21 Repeat lab(s) drawn. by ED staff, sent to lab. mg2 Administered Medications: 12:06 Drug: Ativan 2 mg Route: IVP; Site: right antecubital; mg2 13:41 Follow up: Response: No adverse reaction; Marked relief of symptoms mg2 Outcome: 15:09 Discharge ordered by MD. ortiz 15:43 Patient left the ED. mg2 Signatures: Dispatcher [employer] Kateryna Cao Irene, RN RN iw Valery Ford RN RN ss Leatha Joseph, problem manager EKG Tat1 Janice Stover MD MD ma2 Navjot Weldon RN RN mg2 Corrections: (The following items were deleted from the chart) 13:45 13:40 Pulse 69bpm; Resp 18bpm; Pulse Ox 100% RA; patient is sleeeping; mg2 mg2
[2019-06-06 15:47] VITALS: TEMP 97.8
[2019-06-06 15:48] VITALS: BP 94/70; O2SAT 100
--- NOTE | 2019-06-07 07:42 | EKG ---
Test Date: 2019-06-06 Test Time: 11:07:44 Gravel Wheeler: LIOR MEASUREMENT RESULTS: Intervals: Rate: 77 CO: 140 QRSD: 78 QT: 398 QTc: 450 [place]: P: 42 CO: 140 QRS: 43 T: 38 INTERPRETIVE STATEMENTS: Normal sinus rhythm Normal ECG Compared to ECG 02/09/2018 21:55:48 ST (T wave) deviation no longer present Electronically Signed On 06-07-19 07:38:33 CDT by Simone Lowe
== END 2019-06-06 15:43 | disposition home or self-care (01) ==
LOC: ER 10:51
DX: R07.1 Chest pain on breathing (principal); I10 Essential (primary) hypertension; E11.9 Type 2 diabetes mellitus without complications; Z88.6 Allergy status to analgesic agent
CPT/HCPCS: 36415; 71045; 80048; 80076; 83735; 83880; 84484; 85025; 85610; 93005; 96374; 99285

== ENCOUNTER 2019-06-07 21:52 | Observation (INO) | payer BC ==
--- OUTSIDE RECORDS SUMMARY | 2019-06-07 21:55 | XMS REPORT ---
:1975 [facility] Address [address] [place] [address] Dr. Jean [address] [place] [id number] Care Team Providers Name Role Phone Unavailable Unavailable Unavailable Problems This patient has no known problems. Allergies, Adverse Reactions, Alerts This patient has no known allergies or adverse reactions. Medications This patient has no known medications.
[2019-06-07] MEDS ORDERED: NA CHLORIDE 0.9% 1,000 ML ONE (22:09)
[2019-06-07] MEDS ORDERED: ASPIRIN EC 81 MG TAB PO ONE (22:09)
[2019-06-07 22:25] LABS: Absolute Lymphocytes (CBC) 5.3 K/uL (0.7-4.9); Lymphocytes % 51.8 % (15.3-44.8); MPV 9.4 fL (7.6-11.3); RBC Red Blood Cell Count 4.44 M/uL (3.86-4.86)
[2019-06-07 22:34] LABS: Protime INR 0.96
[2019-06-07 22:49] LABS: ALT/SGPT 44 U/L (12-78); AST/SGOT 25 U/L (15-37); Alkaline Phosphatase 73 U/L (45-117); BUN Blood Urea Nitrogen 23 mg/dL (7-18); Bicarbonate 25 mmol/L (21-32); Bilirubin Direct 0.1 mg/dL (0-0.2); Bilirubin Total 0.3 mg/dL (0.2-1.0); Glucose Level 310 mg/dL (74-106); Lipase 211 U/L (73-393); Magnesium 1.7 mg/dL (1.8-2.4); NT PRO-BNP 6 pg/mL (<125); Potassium 3.3 mmol/L (3.5-5.1); Protein, Total 8.1 g/dL (6.4-8.2); Sodium Level 136 mmol/L (136-145); Troponin (Emerg Dept Use Only) < 0.02 ng/mL (0.0-0.045)
[2019-06-07 22:59] LABS: Urine Blood NEGATIVE (NEG); Urine Glucose 3+ (NEG); Urine Protein NEGATIVE (NEG)
--- NOTE | 2019-06-07 23:57 | ER ---
Nurse's Notes [facility] Name: Amie Irizarry Age: 43 yrs Sex: Female : 1975 Arrival Date: 06/07/2019 Time: 21:56 Bed 3 Private MD: Diagnosis: Chest pain, unspecified;Essential (primary) hypertension;Type 2 diabetes mellitus;Hypokalemia;Hypomagnesemia;Urinary tract infection, site not specified Presentation: 06/07 22:02 Presenting complaint: Mother states: Complaint of chest pain, facial numbness; patient lp1 collapsed while in ER lobby, eyes closed, crying on ground. Transition of care: patient was not received from another setting of care. Onset of symptoms was June 07, 2019. Risk Assessment: Do you want to hurt yourself or someone else? Patient reports no desire to harm self or others. Care prior to arrival: None. 22:02 Method Of Arrival: Ambulatory lp1 22:02 Acuity: JOSÉ 2 lp1 22:02 Initial Sepsis Screen: Does the patient meet any 2 criteria? No. Patient's initial aa1 sepsis screen is negative. Does the patient have a suspected source of infection? No. Patient's initial sepsis screen is negative. Note Prior to triage pt was hyperventilating in lobby and c/o numbness to face and ignacio hands. Pt's mother reported that pt collapsed in the lobby but incident was not witnessed by staff. Historical: - Allergies: 22:05 Demerol; lp1 22:05 Diflucan; lp1 - Home Meds: 22:05 Humalog Mix 75-25 100 unit/mL (75-25) Sub-Q susp 35 unit twice a day [Active]; lp1 lisinopril-hydrochlorothiazide 20-25 mg Oral tab 1 tab once daily [Active]; metoprolol tartrate 100 mg Oral tab 1 tab once daily [Active]; - PMHx: 22:05 Diabetes - NIDDM; Hypertension; lp1 - Immunization history:: Last tetanus immunization: < 5 years ago. - Social history:: Smoking status: Patient/guardian denies using tobacco. - Family history:: not pertinent. - Ebola Screening: : No symptoms or risks identified at this time. Screenin:16 Abuse screen: Denies threats or abuse. Denies injuries from another. Nutritional aa1 screening: No deficits noted. Tuberculosis screening: No symptoms or risk factors identified. Fall Risk Fall in past 12 months (25 points). IV access (20 points). Assessment: 22:16 General: Appears in no apparent distress. comfortable, Behavior is calm, cooperative, aa1 appropriate for age. Pain: Complains of pain in diaphragm and xyphoid area Pain does not radiate. Pain currently is 6 out of 10 on a pain scale. Pain began 1 day ago. Neuro: Level of Consciousness is awake, alert, obeys commands, Oriented to person, place, time, situation, School Manager are equal bilaterally Moves all extremities. Speech is normal, Facial symmetry appears normal, Pupils are PERRLA, Numbness in left side of head pt was noted to be hyperventilating prior to numbness occurring. Cardiovascular: Reports chest pain, Heart tones S1 S2 present Capillary refill < 3 seconds Clubbing of nail beds is absent JVD is absent Patient's skin is warm and dry. Rhythm is regular Chest pain is described as vague, is located in epigastric area began 1 day ago. Respiratory: Airway is patent Respiratory effort is even, unlabored, Respiratory pattern is regular, symmetrical, Breath sounds are clear bilaterally. GI: No signs and/or symptoms were reported involving the gastrointestinal system. : No signs and/or symptoms were reported regarding the genitourinary system. EENT: No signs and/or symptoms were reported regarding the EENT system. Derm: Skin is intact, is healthy with good turgor, Skin is pink, warm \T\ dry. Musculoskeletal: Circulation, motion, and sensation intact. Capillary refill < 3 seconds. 06/08 00:10 Reassessment: Patient appears in no apparent distress at this time. Patient and/or aa1 family updated on plan of care and expected duration. Pain level reassessed. Patient is alert, oriented x 3, equal unlabored respirations, skin warm/dry/pink. Awaiting bed assignment. Pt reports she is feeling nauseated; MD notified. 00:31 Reassessment: Per MD, ok to remove c-collar at this time. aa1 00:33 Reassessment: Pt c/o headache; MD notified. aa1 01:11 Reassessment: Patient appears in no apparent distress at this time. Patient and/or lp1 family updated on plan of care and expected duration. Pain level reassessed. Patient is alert, oriented x 3, equal unlabored respirations, skin warm/dry/pink. Report given to MARLENE Gastelum on 4th floor. Vital Signs: 06/07 22:06 BP 161 / 104; Pulse 76; Resp 14; Pulse Ox 99% on R/A; lp1 22:14 BP 126 / 90; Pulse 72; Resp 14; Temp 97.6; Pulse Ox 100% on R/A; Weight 70.31 kg (R); aa1 Height 5 ft. 4 in. (162.56 cm); Pain 6/10; 23:30 BP 118 / 88; Pulse 78; Resp 16; Pulse Ox 100% on R/A; aa1 06/08 00:38 BP 120 / 84; Pulse 70; Resp 18; Temp 97.9; Pulse Ox 100% on R/A; Pain 8/10; aa1 01:19 BP 120 / 87; Pulse 74; Resp 16; Pulse Ox 98% on R/A; Pain 5/10; aa1 06/07 22:14 Body Mass Index 26.61 (70.31 kg, 162.56 cm) aa1 ED Course: 06/07 21:56 Patient arrived in ED. cf2 21:59 Russell Sands MD is Attending Physician. opal 22:02 Missed attempt(s): 18 gauge in left antecubital area. Bleeding controlled, band aid aa1 applied, catheter tip intact. 22:05 Triage completed. lp1 22:05 Warm blanket given. aa1 22:05 Initial lab(s) drawn, by me, sent to lab. EKG done, by ED staff, reviewed by Russell Sands MD. Inserted saline lock: 20 gauge in right antecubital area, using aseptic technique. Blood collected. Patient maintains SpO2 saturation greater than 95% on room air. 22:06 Patient has correct armband on for positive identification. Placed in gown. Bed in low lp1 position. Side rails up X2. fish processor on. Pulse ox on. NIBP on. 22:06 Arm band placed on left wrist. lp1 22:11 Elsie Tavares, MARLENE is Primary Nurse. aa1 23:04 XRAY Chest (1 view) In Process Unspecified. EDMS 23:25 CT Head C Spine In Process Unspecified. EDMS 23:55 Ward, Mohammad, MD is Hospitalizing Provider. [facility] 06/08 00:29 No provider procedures requiring assistance completed. Patient admitted, IV remains in aa1 place. Administered Medications: 06/07 22:18 Drug: NS 0.9% 1000 ml Route: IV; Rate: 125 ml/hr; Site: right antecubital; [facility] [place] 06/[place] 00:28 Follow up: IV Status: [facility] 06/07 22:18 Drug: Aspirin Chewable Tablet 162 mg Route: PO; [facility] [place] 23:18 Follow up: Response: No adverse reaction [facility] 06/08 00:17 Drug: Insulin Regular Human 10 units {Co-Signature: mg2 (Navjot Weldon RN).} Route: aa1 Sub-Q; Site: right upper arm; 00:18 Drug: Zofran 4 mg Route: IVP; Site: right antecubital; aa1 00:20 Drug: Rocephin - (cefTRIAXone) 1 grams Route: IVPB; Infused Over: 30 mins; Site: right aa1 antecubital; 00:20 Drug: Magnesium Sulfate 1 grams Route: IVPB; Infused Over: 1 hrs; Site: right aa1 antecubital; 00:20 Drug: Rocephin 1 grams Route: IV; Rate: per protocol; Site: right antecubital; aa1 00:27 Drug: Potassium Effervescent Tablet 50 mEq Route: PO; aa1 00:36 Drug: Tylenol 650 mg Route: PO; aa1 Outcome: 06/07 23:56 Decision to Hospitalize by Provider. [facility] 06/08 01:52 Admitted to Tele accompanied by tech, via stretcher, room 429, with chart, Report aa1 called to MARLENE Gastelum Condition: good Discharge instructions given to patient, Instructed on the need for admit, Demonstrated understanding of instructions. 01:53 Patient left the ED. aa1 Signatures: Dispatcher [employer] Elsie Draper RN RN aa1 Russell Sands MD MD cha Pena, Laura, RN RN lp1 Navjot Weldon RN RN mg2 Mara Elizabeth cf2 Navjot Weldon RN mg2
--- NOTE | 2019-06-07 23:58 | EDPHYS ---
Physician Documentation [facility] Name: Amie Irizarry Age: 43 yrs Sex: Female : 1975 Arrival Date: 06/07/2019 Time: 21:56 Bed 3 Private MD: ED Physician Russell Sands HPI: 06/07 22:06 This 43 yrs old Female presents to ER via Ambulatory with complaints of Chest opal Pain, Facial Droop, Numbness. 22:06 The patient or guardian reports chest pain that is located primarily in the substernal opal area. Onset: just prior to arrival. The pain does not radiate. Associated signs and symptoms: The patient has no apparent associated signs or symptoms. The chest pain is described as aching. Modifying factors: The symptoms are alleviated by nothing. Severity of pain: At its worst the pain was moderate. The patient has experienced similar episodes in the past, several times. Historical: - Allergies: 22:05 Demerol; lp1 22:05 Diflucan; lp1 - Home Meds: 22:05 Humalog Mix 75-25 100 unit/mL (75-25) Sub-Q susp 35 unit twice a day [Active]; lp1 lisinopril-hydrochlorothiazide 20-25 mg Oral tab 1 tab once daily [Active]; metoprolol tartrate 100 mg Oral tab 1 tab once daily [Active]; - PMHx: 22:05 Diabetes - NIDDM; Hypertension; lp1 - Immunization history:: Last tetanus immunization: < 5 years ago. - Social history:: Smoking status: Patient/guardian denies using tobacco. - Family history:: not pertinent. - Ebola Screening: : No symptoms or risks identified at this time. ROS: 22:06 Constitutional: Negative for fever, chills, and weight loss, Eyes: Negative for injury, opal pain, redness, and discharge, ENT: Negative for injury, pain, and discharge, Neck: Negative for injury, pain, and swelling, Respiratory: Negative for shortness of breath, cough, wheezing, and pleuritic chest pain, Abdomen/GI: Negative for abdominal pain, nausea, vomiting, diarrhea, and constipation, Back: Negative for injury and pain, : Negative for injury, bleeding, discharge, and swelling, MS/Extremity: Negative for injury and deformity, Skin: Negative for injury, rash, and discoloration, Neuro: Negative for headache, weakness, numbness, tingling, and seizure, Psych: Negative for depression, anxiety, suicide ideation, homicidal ideation, and hallucinations, Allergy/Immunology: Negative for hives, rash, and allergies, Endocrine: Negative for neck swelling, polydipsia, polyuria, polyphagia, and marked weight changes, Hematologic/Lymphatic: Negative for swollen nodes, abnormal bleeding, and unusual bruising. 22:06 Cardiovascular: Positive for chest pain. Exam: 22:07 Constitutional: This is a well developed, well nourished patient who is awake, alert, opal and in no acute distress. Head/Face: Normocephalic, atraumatic. Eyes: Pupils equal round and reactive to light, extra-ocular motions intact. Lids and lashes normal. Conjunctiva and sclera are non-icteric and not injected. Cornea within normal limits. Periorbital areas with no swelling, redness, or edema. ENT: Nares patent. No nasal discharge, no septal abnormalities noted. Tympanic membranes are normal and external auditory canals are clear. Oropharynx with no redness, swelling, or masses, exudates, or evidence of obstruction, uvula midline. Mucous membranes moist. Neck: Trachea midline, no thyromegaly or masses palpated, and no cervical lymphadenopathy. Supple, full range of motion without nuchal rigidity, or vertebral point tenderness. No Meningismus. Chest/axilla: Normal chest wall appearance and motion. Nontender with no deformity. No lesions are appreciated. Cardiovascular: Regular rate and rhythm with a normal S1 and S2. No gallops, murmurs, or rubs. Normal PMI, no JVD. No pulse deficits. Respiratory: Lungs have equal breath sounds bilaterally, clear to auscultation and percussion. No rales, rhonchi or wheezes noted. No increased work of breathing, no retractions or nasal flaring. Abdomen/GI: Soft, non-tender, with normal bowel sounds. No distension or tympany. No guarding or rebound. No evidence of tenderness throughout. Back: No spinal tenderness. No costovertebral tenderness. Full range of motion. Skin: Warm, dry with normal turgor. Normal color with no rashes, no lesions, and no evidence of cellulitis. MS/ Extremity: Pulses equal, no cyanosis. Neurovascular intact. Full, normal range of motion. Neuro: Awake and alert, GCS 15, oriented to person, place, time, and situation. Cranial nerves II-XII grossly intact. Motor strength 5/5 in all extremities. Sensory grossly intact. Cerebellar exam normal. Normal gait. Psych: Awake, alert, with orientation to person, place and time. Behavior, mood, and affect are within normal limits. Vital Signs: 22:06 BP 161 / 104; Pulse 76; Resp 14; Pulse Ox 99% on R/A; lp1 22:14 BP 126 / 90; Pulse 72; Resp 14; Temp 97.6; Pulse Ox 100% on R/A; Weight 70.31 kg (R); aa1 Height 5 ft. 4 in. (162.56 cm); Pain 6/10; 23:30 BP 118 / 88; Pulse 78; Resp 16; Pulse Ox 100% on R/A; aa1 06/08 00:38 BP 120 / 84; Pulse 70; Resp 18; Temp 97.9; Pulse Ox 100% on R/A; Pain 8/10; aa1 01:19 BP 120 / 87; Pulse 74; Resp 16; Pulse Ox 98% on R/A; Pain 5/10; aa1 06/07 22:14 Body Mass Index 26.61 (70.31 kg, 162.56 cm) [facility] MDM: 06/07 21:59 Patient medically screened. [facility] 22:07 Data reviewed: vital signs, nurses notes, lab test result(s), EKG, radiologic studies, [facility] CT scan, plain films. 06/07 22:05 Order name: Basic Metabolic Panel; Complete Time: 23:51 [facility] 06/07 22:05 Order name: CBC with Diff; Complete Time: 23:51 [facility] 06/07 22:05 Order name: LFT's; Complete Time: 23:51 [facility] 06/07 22:05 Order name: Magnesium; Complete Time: 23:51 [facility] 06/07 22:05 Order name: NT PRO-BNP; Complete Time: 23:51 [facility] 06/07 22:05 Order name: PT-INR; Complete Time: 23:51 [facility] 06/07 22:05 Order name: Troponin (emerg Dept Use Only); Complete Time: 23:51 [facility] 06/07 22:05 Order name: Lipase; Complete Time: 23:51 [facility] 06/07 22:05 Order name: Urine Culture [facility] 06/07 22:05 Order name: UDS [facility] 06/07 22:08 Order name: Acetaminophen; Complete Time: 23:51 [facility] 06/07 22:08 Order name: ETOH Level; Complete Time: 23:51 [facility] 06/07 22:08 Order name: Salicylate; Complete Time: 23:51 [facility] 06/07 22:05 Order name: XRAY Chest (1 view) [facility] 06/07 22:05 Order name: CT Head C Spine [facility] 06/07 22:26 Order name: PTT, Activated Partial Thromb; Complete Time: 23:51 [facility] 06/07 22:47 Order name: Urine Dipstick--Ancillary (enter results); Complete Time: 23:51 [facility] 06/07 22:47 Order name: Urine --Ancillary (enter results); Complete Time: 23:51 [facility] 06/08 00:51 Order name: Echo with Doppler [facility] 06/08 00:52 Order name: Lipid Profile [facility] 06/08 00:52 Order name: Lipid Profile [facility] 06/08 00:52 Order name: Troponin I [facility] 06/08 00:52 Order name: Troponin I [facility] 06/08 00:52 Order name: Troponin I [facility] 06/07 22:05 Order name: EKG; Complete Time: 22:08 [facility] 06/07 22:05 Order name: Cardiac monitoring; Complete Time: 22:09 [facility] 06/07 22:05 Order name: EKG - Nurse/Tech; Complete Time: 22:09 [facility] 06/07 22:05 Order name: IV Saline Lock; Complete Time: 22:19 [facility] 06/07 22:05 Order name: Labs collected and sent; Complete Time: 22:19 [facility] 06/07 22:05 Order name: O2 Per Protocol; Complete Time: 22:09 [facility] 06/07 22:05 Order name: O2 Sat Monitoring; Complete Time: 22:09 [facility] 06/07 22:05 Order name: Urine Dipstick-Ancillary (obtain specimen); Complete Time: 22:44 [facility] 06/07 22:05 Order name: Urine Test (obtain specimen); Complete Time: 22:44 [facility] 06/08 00:51 Order name: CONS Physician Consult [facility] 06/08 00:51 Order name: EKG Electrocardiogram [facility] 06/08 00:51 Order name: EKG Electrocardiogram EDMS Administered Medications: 22:18 Drug: NS 0.9% 1000 ml Route: IV; Rate: 125 ml/hr; Site: right antecubital; mg2 06/08 00:28 Follow up: IV Status: Infusion continued upon admission aa1 06/07 22:18 Drug: Aspirin Chewable Tablet 162 mg Route: PO; mg2 23:18 Follow up: Response: No adverse reaction aa1 06/08 00:17 Drug: Insulin Regular Human 10 units {Co-Signature: mg2 (Navjot Weldon RN).} Route: aa1 Sub-Q; Site: right upper arm; 00:18 Drug: Zofran 4 mg Route: IVP; Site: right antecubital; aa1 00:20 Drug: Rocephin - (cefTRIAXone) 1 grams Route: IVPB; Infused Over: 30 mins; Site: right aa1 antecubital; 00:20 Drug: Magnesium Sulfate 1 grams Route: IVPB; Infused Over: 1 hrs; Site: right aa1 antecubital; 00:20 Drug: Rocephin 1 grams Route: IV; Rate: per protocol; Site: right antecubital; aa1 00:27 Drug: Potassium Effervescent Tablet 50 mEq Route: PO; aa1 00:36 Drug: Tylenol 650 mg Route: PO; aa1 Disposition: 06/07/19 23:56 Hospitalization ordered by Janice Ward for Observation. Preliminary diagnosis are Chest pain, unspecified, Essential (primary) hypertension, Type 2 diabetes mellitus, Hypokalemia, Hypomagnesemia, Urinary tract infection, site not specified. - Bed requested for Telemetry/MedSurg (observation). - Status is Observation. aa1 - Condition is Stable. - Problem is new. - Symptoms have improved. UTI on Admission? Yes Signatures: Dispatcher [employer] [facility] Blanche Valero RN RN Elsie Tavares RN RN aa1 Russell Sands MD MD cha Pena, Laura, RN RN lp1 Navjot Weldon RN RN mg2 Navjot Weldon RN mg2 Corrections: (The following items were deleted from the chart) 06/07 22:25 22:09 PTT, ACTIVATED+[id number].BRZ ordered. EDNJ EDN[facility] 06/08 00:19 06/07 23:56 Hospitalization Ordered by Janice Ward MD for Observation. Preliminary mw diagnosis is Chest pain, unspecified; Essential (primary) hypertension; Type 2 diabetes mellitus; Hypokalemia; Hypomagnesemia; Urinary tract infection, site not specified. Bed requested for Telemetry/MedSurg (observation). Status is Observation. Condition is Stable. Problem is new. Symptoms have improved. UTI on Admission? Yes. [facility] 06/08 01:53 00:19 06/07/2019 23:56 Hospitalization Ordered by Janice Ward MD for Observation. aa1 Preliminary diagnosis is Chest pain, unspecified; Essential (primary) hypertension; Type 2 diabetes mellitus; Hypokalemia; Hypomagnesemia; Urinary tract infection, site not specified. Bed requested for Telemetry/MedSurg (observation). Status is Observation. Condition is Stable. Problem is new. Symptoms have improved. UTI on Admission? Yes. mw
[2019-06-08] MEDS ORDERED: MAGNESIUM SULFATE 1 gm IVPB 1 GM/100 ML BAG IV ONE (00:06)
[2019-06-08] MEDS ORDERED: POTASSIUM 25 MEQ EFFERV TAB ONE ×2 (00:06→00:08)
[2019-06-08] MEDS ORDERED: ONDANSETRON 4 MG/2 ML VIAL ONE (00:06)
[2019-06-08] MEDS ORDERED: CEFTRIAXONE/SWI 1gm 2 GM/20 ML SYR ONE (00:06)
[2019-06-08] MEDS ORDERED: NA CHLORIDE 0.9% 0 ML ONE (00:07)
[2019-06-08] MEDS ORDERED: INSULIN -REGULAR HUMAN 50 UNIT/0.5 ML ML ONE (00:08)
[2019-06-08] MEDS ORDERED: ALPRAZOLAM 0.25 MG TABLET PO PRN (00:20)
[2019-06-08] MEDS ORDERED: MORPHINE 4 MG/ML SYR IV PRN (00:20)
[2019-06-08] MEDS ORDERED: ACETAMINOPHEN 325 MG TABLET ONE (00:37)
[2019-06-08] MEDS ORDERED: PROMETHAZINE 25 MG/ML VIAL IV ONE (02:37)
[2019-06-08] MEDS: ACETAMINOPHEN 500 MG TAB PO PRN ×2 (02:52→09:24)
[2019-06-08 03:32] VITALS: BMI 27.9
--- NOTE | 2019-06-08 08:53 | RAD REPORT ---
EXAM DESCRIPTION: Randy Single View06/07/2019 11:03 pm CLINICAL HISTORY: Chest pain COMPARISON: June 06, 2019 FINDINGS: The lungs appear clear of acute infiltrate. The heart is normal size IMPRESSION: No acute abnormalities displayed
[2019-06-08] MEDS ORDERED: ENOXAPARIN 40 MG/0.4 ML SQ SCH (09:00)
[2019-06-08] MEDS ORDERED: ASPIRIN EC 81 MG TAB PO SCH (09:00)
[2019-06-08] MEDS ORDERED: METOPROLOL TAR 50 MG TAB PO SCH (09:00)
--- NOTE | 2019-06-08 09:03 | P.HP ---
Certification for Inpatient Patient admitted to: Observation With expected LOS: <2 Midnights Patient will require the following post-hospital care: None Practitioner: I am a practitioner with admitting privileges, knowledge of patient current condition, hospital course, and medical plan of care. Services: Services provided to patient in accordance with Admission requirements found in Title 42 Section 412.3 of the Code of Federal Regulations Patient History Date of Service: 06/08/19 Reason for admission: Chest pain rule out acute coronary syndrome History of Present Illness: Patient is a 43-year-old gentleman who came into the hospital with chest discomfort. Patient had hypertension, diabetes, and an dyslipidemia. Patient was having chest pain this morning and came to the ER and was discharged home. Patient's chest pain continued so patient came back to the ER. Patient had serial troponins and EKG pending. Patient will be admitted to the hospital for further evaluation. Allergies meperidine [From Demerol] Allergy (Intermediate, Verified 09/30/16 03:41) Rash Home Medications: Gemfibrozil [Lopid] 600 mg PO DAILY 06/08/19 Insulis Lispro MIX 75/25 [Humalog Mix 75/25] 35 unit SQ BID 06/08/19 Lisinopril/Hydrochlorothiazide [Lisinopril-Hctz 20-25 mg Tab] 1 each PO DAILY Metoprolol Tartrate [Lopressor] 100 mg PO DAILY 06/08/19 Multivitamin [Multivitamins] 1 each PO DAILY 06/08/19 [place]-3/Dha/Epa/Fish Oil [[place] 3 500 Softgel] 1 each PO DAILY 06/08/19 - Past Medical/Surgical History Has patient received pneumonia vaccine in the past: No Diabetic: Yes -: Diabetes mellitus type 2 -: Hypertension -: History of Youssef's palsy -: YOUSSEF'S PALSY -: ABSCESS -: CELLULITIS -: x3 -: tubal ligation -: tummy tuck, breast reduction and liposuction -: T&A -: cholecystectomy -: History of ectopic -: ERCP Psychosocial/ Personal History: The patient is , she has 3 children, 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 - Family History Father Medical History: Diabetes Mother Medical History: Diabetes - Social History Smoking Status: Never smoker Alcohol use: Yes CD- Drugs: No Caffeine use: Yes Place of Residence: Home Review of Systems 10-point ROS is otherwise unremarkable Physical Examination - Vital Signs Temperature: 97.3 F Blood Pressure: 111/67 Pulse: 74 Respirations: 18 Pulse Ox (%): 100 - Physical Exam General: Alert, In no apparent distress, Oriented x3 HEENT: Atraumatic, PERRLA, Mucous membr. moist/pink, EOMI, Sclerae nonicteric Neck: Supple, 2+ carotid pulse no bruit, No LAD, Without JVD or thyroid abnormality Respiratory: Clear to auscultation bilaterally, Normal air movement Cardiovascular: Regular rate/rhythm, Normal S1 S2, No murmurs Gastrointestinal: Normal bowel sounds, Soft and benign, Non-distended, No tenderness Musculoskeletal: No clubbing, No swelling, No tenderness Integumentary: No rashes Neurological: Normal gait, Normal speech, Normal strength at 5/5 x4 extr, Normal tone, Sensation intact, Cranial nerves 3-12 intact, Normal affect Lymphatics: No axilla or inguinal lymphadenopathy - Studies Laboratory Data (last 24 hrs) 06/07/19 22:15: PT 11.3, INR 0.96, APTT 32.4 06/07/19 22:15: WBC 10.1 D, Hgb 13.9, Hct 40.0, Plt Count 234 06/07/19 22:15: Sodium 136, Potassium 3.3 L, BUN 23 H, Creatinine 0.95, Glucose 310 H, Magnesium 1.7 L, Total Bilirubin 0.3, AST 25, ALT 44, Alkaline Phosphatase 73, Lipase 211 06/07/19 22:08: APTT Cancelled Assessment & Plan - Problems (Diagnosis) (1) Chest pain, rule out acute myocardial infarction Current Visit: Yes Status: Acute (2) History of CVA (cerebrovascular accident) Current Visit: Yes Status: Acute (3) Diabetes mellitus Onset Date: 09/30/16 Current Visit: No Status: Chronic Qualifiers: (4) Fatty liver Onset Date: 09/30/16 Current Visit: No Status: Chronic (5) Hypertension Onset Date: 09/30/16 Current Visit: No Status: Chronic Qualifiers: - Plan 1. Serial troponins and EKG 2. Cardiology consultation 3. Echocardiogram and may need outpatient stress test if her initial workup is negative 4. Anti-platelet therapy, beta-primo, statin, and O2 as needed 5. IV morphine for pain 6. GI and DVT prophylaxis Discharge Plan: Home Plan to discharge in: 24 Hours - Advance Directives Does patient have a Living Will: No Does patient have a Durable POA for Healthcare: No - Code Status/Comfort Care Code Status Assessed: Yes Code Status: Full Code Critical Care: No Time Spent Managing PTS Care (In Minutes): 45
[2019-06-08] MEDS ORDERED: GLUCAGON 1 MG/VIAL IM PRN (10:39)
[2019-06-08] MEDS ORDERED: D50W 25 GM/50 ML SYRINGE IV PRN (10:39)
[2019-06-08] MEDS: INSULIN -REGULAR HUMAN 50 UNIT/0.5 ML ML SQ SCH ×2 (11:30→16:58)
--- NOTE | 2019-06-08 14:03 | P.PN ---
Date of Service: 06/08/19 Patient seen and examined. She denies any chest pain and pneumonia. 1st set of troponin is negative. 2nd set is pending. Echocardiogram and cardiology consult are pending. Continue aspirin, metoprolol. Hypertriglyceridemia noted. Suspect this is most likely secondary to chronic hyperglycemia. Patient need aggressive blood glucose control.
--- NOTE | 2019-06-08 16:13 | P.DS ---
Admission Date: 06/08/19 Discharge Date: 06/08/19 Disposition: ROUTINE DISCHARGE Discharge Condition: GOOD Reason for Admission: Chest pain rule out acute coronary syndrome - Problems (1) Chest pain, rule out acute myocardial infarction Current Visit: Yes Status: Acute (2) Hypertriglyceridemia Current Visit: No Status: Chronic Brief History of Present Illness: 43-year-old patient with history of diabetes mellitus, hypertriglyceridemia and hypertension presented to the emergency department with a complaint of recurrent chest. She was in the emergency department earlier for chest pain. Patient was discharged from the ED only to come back a few hours later with recurrent chest pain. Initial troponin in the ED was negative. EKG demonstrated normal sinus rhythm and nonspecific ST-T changes. Patient was placed under observation for ACS rule out. Hospital Course: Patient placed under observation with telemetry. Troponin trended came back negative. She had no more episodes of chest pain during the observation. Echocardiogram was performed. ACS ruled out. Patient was evaluated by Dr. Lowe, patient deemed stable for discharge per cardiology. She is prescribed aspirin. Her triglyceride level was 324. She is on gemfibrozil and [place] 3 fatty acids. She was given a dose of Rocephin in the ED for suspected UTI. Vital Signs/Physical Exam: Temp Pulse Resp BP Pulse Ox 98.1 F 65 16 103/70 100 06/08/19 12:00 06/08/19 12:00 06/08/19 12:00 06/08/19 12:00 06/08/19 12:00 General: Alert, In no apparent distress, Oriented x3 HEENT: Mucous membr. moist/pink Neck: Supple, JVD not distended Respiratory: Clear to auscultation bilaterally, Normal air movement Cardiovascular: No edema, Regular rate/rhythm, Normal S1 S2 Gastrointestinal: Normal bowel sounds, Soft and benign, No tenderness Musculoskeletal: No swelling, No erythema Integumentary: No rashes Neurological: Normal strength at 5/5 x4 extr, Cranial nerves 3-12 intact Laboratory Data at Discharge: WBC 10.1 K/uL (4.3-10.9) D 06/07/19 22:15 Hgb 13.9 g/dL (12.0-15.0) 06/07/19 22:15 Hct 40.0 % (36.0-45.0) 06/07/19 22:15 Plt Count 234 K/uL (152-406) 06/07/19 22:15 PT 11.3 SECONDS (9.5-12.5) 06/07/19 22:15 INR 0.96 06/07/19 22:15 APTT 32.4 SECONDS (24.3-36.9) 06/07/19 22:15 Sodium 136 mmol/L (136-145) 06/07/19 22:15 Potassium 3.3 mmol/L (3.5-5.1) L 06/07/19 22:15 BUN 23 mg/dL (7-18) H 06/07/19 22:15 Creatinine 0.95 mg/dL (0.55-1.3) 06/07/19 22:15 Glucose 310 mg/dL (74-106) H 06/07/19 22:15 Magnesium 1.7 mg/dL (1.8-2.4) L 06/07/19 22:15 Total Bilirubin 0.3 mg/dL (0.2-1.0) 06/07/19 22:15 AST 25 U/L (15-37) 06/07/19 22:15 ALT 44 U/L (12-78) 06/07/19 22:15 Alkaline Phosphatase 73 U/L (45-117) 06/07/19 22:15 Troponin I < 0.02 ng/mL (0.0-0.045) 06/08/19 14:27 Triglycerides 324 mg/dL (<150) H 06/08/19 06:09 Cholesterol 199 mg/dL (<200) 06/08/19 06:09 HDL Cholesterol 34 mg/dL (40-60) L 06/08/19 06:09 Cholesterol/HDL Ratio 5.85 06/08/19 06:09 Lipase 211 U/L (73-393) 06/07/19 22:15 Home Medications: Aspirin [Aspirin EC 81 MG] 81 mg PO DAILY 30 Days #30 tablet. 06/08/19 Gemfibrozil [Lopid*] 600 mg PO DAILY 06/08/19 [place] Lispro MIX 75/25 [Humalog Mix 75/25*] 35 unit SQ BID 06/08/19 Lisinopril/Hydrochlorothiazide [Lisinopril-Hctz 20-25 mg Tab] 1 each PO DAILY Metoprolol Tartrate [Lopressor] 100 mg PO DAILY 06/08/19 Multivitamin [Multivitamins] 1 each PO DAILY 06/08/19 [place]-3/Dha/Epa/Fish Oil [[place] 3 500 Softgel] 1 each PO DAILY 06/08/19 New Medications: Aspirin [Aspirin EC 81 MG] 81 mg PO DAILY 30 Days #30 tablet. Diet: AHA Activity: Ad asya
[2019-06-08 18:13] VITALS: BP 107/68; TEMP 97.3
[2019-06-08 18:21] VITALS: O2SAT 98
--- NOTE | 2019-06-09 18:27 | EKG ---
Test Date: 2019-06-07 Test Time: 22:02:36 Technology Coordinator: FADY MEASUREMENT RESULTS: Intervals: Rate: 80 AK: 136 QRSD: 78 QT: 384 QTc: 442 [place]: P: 56 AK: 136 QRS: 54 T: -17 INTERPRETIVE STATEMENTS: Normal sinus rhythm with sinus arrhythmia Cannot rule out Inferior infarct, age undetermined Abnormal ECG Compared to ECG 06/06/2019 11:07:44 Myocardial infarct finding now present Electronically Signed On 06-09-19 18:23:12 CDT by Simone Lowe
--- NOTE | 2019-06-09 22:27 | CON ---
Date of Consultation: 06/08/2019 Reason For Consultation: Chest pain, facial drooping, and numbness. History Of Present Illness: Ms. Irizarry is a 43-year-old [place] woman who has not really had any previous cardiac history. 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 Has a history of angelika betes, hypertension, dyslipidemia. She has seen Dr. Francois in [place] from a cardiology standpoint and has had recently a normal echocardiogram and a normal Lexiscan. Her chest pain is sharp, atypical, radiates to the back, nonexertional, lasts more than hours. No nausea, vomiting, diaphoresis, PND, o rthopnea, pedal edema, palpitations, or syncope. Has noticed a slight numbness on her right face and facial drooping. By the time I saw her, she was already ruled out for an IA. Her magnesium was 1.7 , her potassium was 3.3, which were to be supplemented. Her glucose was 310. Troponin was negative. CPKs, MBs, and BNP were negative. EKG is negative. Chest x-ray is negative. Allergies: SHE IS ALLERGIC TO DEMEROL. Review of Systems: Negative. Social History: Negative. Family History: Noncontributory. Medications: At home include insulin, Lopid, lisinopril with hydrochlorothiazide, and metoprolol. Physical Examination: Vital Signs: Stable, afebrile. General: No acute distress. HEENT: Negative. Neck: Supple. No bruit. Chest: Clear. Cardiac: Revealed regular rhythm and rate. No murmurs, gallops, or rubs. Abdomen: Benign. Extremities: Revealed no clubbing, cyanosis, or edema. Diagnostic Data: Included in the HPI. Impression And Plan: Atypical chest pain, most likely gastrointestinal in origin or musculoskeletal. She has already had a negative cardiac workup by Dr. Francois in the recent past and I would not recomme nd any further cardiac workup at this point. Her blood pressure and dyslipidemia are well controlled . Her diabetes is poorly controlled. I believe her facial drooping and numbness may be just a recur rence of her Wilder palsy. I am concerned about her potassium and magnesium being low and that is prob ably secondary to her hydrochlorothiazide. I suggested that she changes that to lisinopril only, but she will discuss that with her primary care physician and Dr. Francois. From my standpoint, she is free to go home. LAUREN/JOHNNIE Voice ID: [id number] Report ID: [id number]
--- NOTE | 2019-06-10 11:08 | RAD REPORT ---
EXAM DESCRIPTION: CT - Head C Spine Mpr Wo Con - 06/08/2019 1:44 am CLINICAL HISTORY: The patient is 43 years old and is Female; PAIN TECHNIQUE: Axial computed tomography images of the head/brain and cervical spine without intravenous contrast. Sagittal and coronal reformatted images were created and reviewed. This CT exam was pe rformed using one or more of the following dose reduction techniques: automated exposure control, a djustment of the mA and/or kV according to patient size, and/or use of iterative reconstruction techn ique. COMPARISON: No relevant prior studies available. FINDINGS: BRAIN: Unremarkable. No hemorrhage. No significant white matter disease. No edema. VENTRICLES: Unremarkable. No ventriculomegaly. SKULL: No acute fracture. SINUSES: Unremarkable as visualized. No acute sinusitis. MASTOID AIR CELLS: Unremarkable as visualized. No mastoid effusion. VERTEBRAE: The vertebral body heights and alignment are maintained. No acute fracture. DISCS/SPINAL CANAL/NEURAL FORAMINA: The intervertebral disc spaces are maintained. No spinal can al stenosis. SOFT TISSUES: The soft tissues are normal. LUNG APICES: The lung apices are clear. IMPRESSION: 1. No acute intracranial findings. 2. No fracture or malalignment of the cervical spine. Electronically signed by: Shital Velez MD 06/07/2019 11:34 PM CDT Due to temporary technical issues with the PACS/Fluency reporting system, reports are being signed by the in house radiologist as a courtesy to ensure prompt reporting. The interpreting radiologist is f ully responsible for the content of the report.
== END 2019-06-08 17:50 | disposition home or self-care (01) ==
LOC: ER 21:52 → ERHOLD 06-08 01:01 → 4TH 06-08 01:16
PROVIDERS: ADMIT Hospitalist; ATTEND Internal Medicine
DX: R07.89 Other chest pain (principal); E11.9 Type 2 diabetes mellitus without complications; E78.1 Pure hyperglyceridemia; I10 Essential (primary) hypertension; K76.0 Fatty (change of) liver, not elsewhere classified; Z86.73 Personal history of transient ischemic attack (TIA), and cerebral infarction without residual deficits
CPT/HCPCS: 96361; 93005; 87088; 85025; 87086; 80048; 36415; 80320; 83735; 80329 ×2; 81025; 85610; 80061; 82962 ×3; 80076; 85730; 81003; 84484 ×3; 83690; 83880; 70450; 72125; 71045; 96375; 96372; 96374; 99285; J2550; J1650; J3475; J0696; J7030; J2405; G0378 ×2

== ENCOUNTER 2020-08-12 21:31 | Emergency (ER) | payer BC ==
[2020-08-12 22:19] LABS: Basophils % 2.7 % (0-1.3); Hematocrit 41.3 % (36.0-45.0); Lymphocytes % 41.7 % (15.3-44.8); MPV 8.8 fL (7.6-11.3); RBC Red Blood Cell Count 4.76 M/uL (3.86-4.86)
[2020-08-12 22:23] LABS: Protime INR 0.96
[2020-08-12] MEDS ORDERED: NA CHLORIDE 0.9% 2,000 ML ONE (22:24)
[2020-08-12] MEDS ORDERED: ONDANSETRON 4 MG/2 ML VIAL ONE ×2 (22:45→23:01)
[2020-08-12] MEDS ORDERED: GLUCAGON 1 MG/VIAL ONE ×3 (22:48→22:53)
[2020-08-12] MEDS ORDERED: NOREPINEPHRINE 4mg/D5W 250mL 4 MG/250 ML BAG IV ONE (22:49)
--- NOTE | 2020-08-12 23:40 | ER ---
Nurse's Notes [facility] Name: Amie Irizarry Age: 44 yrs Sex: Female : 1975 Arrival Date: 08/12/2020 Time: 21:31 Bed 15 Private MD: Diagnosis: Drugs ( Metoprolol, Lisinopril ) Overdose. Suicidal ideation Presentation: 08/12 21:37 Chief complaint: EMS states: "She was witnessed by family about 30 min prior to arrival jd3 here at the ER taking pill bottles full of metoprolol 100 mg and lisinopril unknown doses. she was initially unresponsive, but she woke up and has been drowsy since. she is awake and oriented. she has maintained her airway. blood sugar of 167. 20 G IV to the left AC.". Coronavirus screen: At this time, the client does not indicate any symptoms associated with coronavirus-19. Ebola Screen: Patient negative for fever greater than or equal to 101.5 degrees Fahrenheit, and additional compatible Ebola Virus Disease symptoms. Initial Sepsis Screen: Does the patient meet any 2 criteria? No. Patient's initial sepsis screen is negative. Does the patient have a suspected source of infection? No. Patient's initial sepsis screen is negative. Risk Assessment: Do you want to hurt yourself or someone else? Patient reports desire/thoughts of hurting themselves or someone else. Provider notified. Onset of symptoms was August 12, 2020. 21:37 Method Of Arrival: EMS: [facility] 21:37 Acuity: JOSÉ 2 jd3 CASH APPLICATIONS COORDINATOR: 21:48 LMP N/A - Irregular menses jd3 Historical: - Allergies: 21:48 Demerol; jd3 21:48 Diflucan; jd3 - Home Meds: 21:48 metoprolol tartrate 100 mg Oral tab 1 tab once daily [Active]; Lisinopril Oral [Active];jd3 - PMHx: 21:48 Diabetes - NIDDM; Hypertension; jd3 - PSHx: 21:48 breast; jd3 - Immunization history:: Adult Immunizations up to date. - Social history:: Smoking status: Patient denies any tobacco usage or history of. Screenin:18 Abuse screen: Denies threats or abuse. Nutritional screening: No deficits noted. jd3 Tuberculosis screening: No symptoms or risk factors identified. Fall Risk IV access (20 points). Ambulatory Aid- None/Bed Rest/Nurse Assist (0 pts). Gait- Weak (10 pts.). Mental Status- Overestimates/Forgets Limitations (15 pts.). Total Gregory Fall Scale indicates Low Risk Score (25-44 pts). Fall prevention measures have been instituted. Side Rails Up X 2 Placed close to Nursing Station Frequent Obs/Assesments occuring Family Present and informed to notify staff if they need to leave bedside. Assessment: 22:15 Reassessment: poison control contacted, recommendation: (overdose or toxic work-up. jd3 give glucagon. give pressers as need to sustain blood pressure. if treatment is not working, have ER doctor call poison control doctor to discuss high dose insulin treatment. continue to monitor blood pressure and heart rate.) ER provider notified of treatment recommendation. 22:16 General: Appears comfortable, Behavior is cooperative, drowsy. Pain: Denies pain. jd3 Neuro: Level of Consciousness is awake, obeys commands, lethargic, Oriented to person, place, time, situation. Cardiovascular: Denies chest pain, Capillary refill < 3 seconds Patient's skin is warm and dry. Rhythm is regular. Respiratory: Airway is patent Respiratory effort is even, unlabored, Respiratory pattern is regular, symmetrical, Denies cough, shortness of breath. GI: No signs and/or symptoms were reported involving the gastrointestinal system. : No signs and/or symptoms were reported regarding the genitourinary system. EENT: No signs and/or symptoms were reported regarding the EENT system. Derm: Skin is intact, Skin is dry, Skin is normal, Skin temperature is warm. Musculoskeletal: Circulation, motion, and sensation intact. Range of motion: intact in all extremities. 22:20 Reassessment: No changes from previously documented assessment. Patient and/or family jd3 updated on plan of care and expected duration. Pain level reassessed. pt vomiting, Zofran give per verbal order. pt appearing pale, charge nurse and provider notified. 22:30 Reassessment: provider and charge notified of low blood pressure, pt prepared for a jd3 central line placement. pt with even and unlabored respirations, pt drowsy, responding to painful stimuli. 22:40 Reassessment: assisted provider with central line placement. pt vomiting after glucagon jd3 administration. Zofran given per verbal order. pt with even and unlabored respirations, responding to painful stimuli. 22:50 Reassessment: Patient and/or family updated on plan of care and expected duration. Pain jd3 level reassessed. pt waking up, responding to verbal stimuli. oriented X 2. even and unlabored respirations. 22:50 Reassessment: Patient and/or family updated on plan of care and expected duration. Pain jd3 level reassessed. Patient is alert, oriented x 3, equal unlabored respirations, skin warm/dry/pink. pt fully awake, reports feeling less drowsy. 23:00 Reassessment: Patient and/or family updated on plan of care and expected duration. Pain jd3 level reassessed. Patient is alert, oriented x 3, equal unlabored respirations, skin warm/dry/pink. pt talking with family at bedside Patient states feeling better. 23:30 Reassessment: No changes from previously documented assessment. Patient and/or family jd3 updated on plan of care and expected duration. Pain level reassessed. Patient is alert, oriented x 3, equal unlabored respirations, skin warm/dry/pink. 23:51 Reassessment: No changes from previously documented assessment. Patient and/or family jd3 updated on plan of care and expected duration. Pain level reassessed. Patient is alert, oriented x 3, equal unlabored respirations, skin warm/dry/pink. pt and family updated on plan to transfer. awaiting acceptance. provider at bedside checking on patient's status. Patient states feeling better. Psych: 22:15 Subjective: Patient's mood is sad, Delusions are denied, Hallucinations are denied jd3 Having thoughts of suicide. Plan for suicide is overdose on prescribed meds. Objective: Patient is cooperative, using poor eye contact, Speech is soft, Affect is drowsy. Interventions: Removed personal items and placed in bag. Patient placed in hospital gown. Suicide Risk Assessment: Sad Person Scale: Sex of patient: Female: Score 0 points. Age of patient: Score 0 point if patient falls outside of specified age parameters. Depression: Score 1 point if signs of depression are present. Previous Attempt: Score 0 point if patient has not previously attempted suicide. Substance Abuse: Score 0 point if patient does not abuse alcohol or drugs. Rational Thinking: Score 1 point if patient is lacking rational thinking. Social Support: Score 0 if social support is present/available. Organized Plan: Score 1 point if patient had a plan in place. Relationship: Score 0 point if patient has a spouse or domestic partner. Chronic Sickness: Score 0 point if patient does not have a chronic illness, debilitating, or severe disorder. TOTAL POINTS: If total points are 5-6, proposed clinical action is to strongly consider hospitalization, depending upon confidence in the follow-up arrangement. Implement suicide precautions. Safety Checks: Personal items have been removed. Door is open. Visitors are present. Pt denies substance abuse. 08/13 01:14 Commitment: Patient will be a voluntary commitment. ca1 Vital Signs: 08/12 21:48 BP 129 / 91; Pulse 80; Resp 18 S; Temp 97.2(TE); Pulse Ox 97% on R/A; Weight 77.11 kg jd3 (R); Height 5 ft. 3 in. (160.02 cm) (R); Pain 0/10; 22:15 BP 107 / 71; Pulse 67; Resp 20 S; Pulse Ox 97% on R/A; jd3 22:30 BP 64 / 50; Pulse 67; Resp 14 S; Pulse Ox 96% on R/A; jd3 22:40 BP 88 / 55; Pulse 69; Resp 17 S; Pulse Ox 98% on R/A; jd3 22:50 BP 108 / 95; Pulse 86; Resp 16 S; Pulse Ox 97% on R/A; jd3 23:00 BP 107 / 76; Pulse 76; Resp 17 S; Pulse Ox 96% on R/A; jd3 23:15 BP 114 / 81; Pulse 74; Resp 20 S; Pulse Ox 96% on R/A; jd3 23:30 BP 111 / 84; Pulse 75; Resp 20 S; Pulse Ox 98% on R/A; jd3 23:52 BP 111 / 73; Pulse 73; Resp 20 S; Pulse Ox 97% on R/A; jd3 08/13 00:20 BP 110 / 76; Pulse 75; Resp 18; Pulse Ox 99% on R/A; Pain 0/10; ca1 08/12 21:48 Body Mass Index 30.11 (77.11 kg, 160.02 cm) jd3 ED Course: 08/12 21:31 Patient arrived in ED. cl3 21:37 James Correia, MARLENE is Primary Nurse. jd3 21:42 Frankie French MD is Attending Physician. pkl 21:45 Triage completed. jd3 21:49 Arm band placed on. jd3 22:00 Maintain EMS IV. Dressing intact. Good blood return noted. Site clean \\T\\ dry. Gauge \\T\\ kady 3 site: 20 G left AC. 22:19 Patient has correct armband on for positive identification. Bed in low position. Call jd3 light in reach. Side rails up X2. Adult w/ patient. hospital monitor on. Pulse ox on. NIBP on. 22:20 Inserted saline lock: 18 gauge in right antecubital area, using aseptic technique. jd3 22:40 Assisted provider with central line placement. Set up central line tray. Triple lumen jd3 line placed in right femoral. Line placed by Brigido SNYDER Placement verified by blood return, Dressed with Tape, Tegaderm, Patient tolerated well. Was handwashing/sanitizing done immediately prior to procedure? Yes. Was patient positioned to in a way to prevent air embolism? Yes. Was procedure site sterilized? Yes, with chlorhexidine. Was the site allowed to dry? Yes. Was local anesthetic and/or sedation utilized? Yes. During the procedure, did the Practitioner(s) maintain a sterile field? Yes. Were unused ports clamped during insertion? Yes. Was blood aspirated from each lumen? Yes. After the procedure, did the Practitioner(s) clean the site and apply a sterile dressing? Yes. 23:14 Initiated transfer with Abiola at [facility]. tt3 08/13 00:05 Report given to Gloria ROSARIO. jd3 00:05 Patient transferred, IV remains in place. jd3 00:15 XRAY CXR (1 view) In Process Unspecified. EDMS Administered Medications: 08/12 22:17 Not Given (Physician Discretion): NS 0.9% 1000 ml IV at 125 ml/hr continuous jd3 22:17 CANCELLED (Physician Discretion): NS 0.9% 1000 ml IV at 1 bolus Per protocol; 1000 mL jd3 bolus 22:18 Drug: NS 0.9% 1000 ml Route: IV; Rate: 1000 ml; Site: left antecubital; jd3 08/13 00:06 Follow up: Response: No adverse reaction; IV Status: Completed infusion; IV Intake: jd3 1000ml 01:15 Follow up: IV Status: Completed infusion; IV Intake: 1000ml ca1 08/12 22:18 Drug: NS 0.9% 1000 ml Route: IV; Rate: 125 ml/hr; Site: left antecubital; jd3 08/13 00:06 Follow up: Response: No adverse reaction; IV Status: Infusion continued upon transfer jd3 08/12 22:20 Drug: Zofran (Ondansetron) 4 mg Route: IVP; Site: right antecubital; jd3 22:30 Follow up: Response: No adverse reaction; Nausea is decreased jd3 22:40 Drug: Glucagon 5 mg Route: IVP; Site: right antecubital; jd3 22:45 Follow up: Response: Vomiting increased jd3 22:40 Drug: Zofran (Ondansetron) 8 mg Route: IVP; Site: right antecubital; jd3 08/13 00:07 Follow up: Response: No adverse reaction; Nausea is decreased; Vomiting decreased jd3 00:45 Drug: K-Dur 40 mEq Route: PO; ca1 01:15 Follow up: Response: No adverse reaction; No change in condition ca1 Intake: 00:06 IV: 1000ml; Total: 1000ml. jd3 01:15 IV: 1000ml; Total: 2000ml. ca1 Outcome: 08/12 23:39 ER care complete, transfer ordered by . abraham 08/13 00:38 Transferred by private ambulance to [facility], Transfer form ca1 completed. Transferred Note: Report given to Precious ROSARIO at [facility] critical Instructed on the need for transfer. 01:16 Patient left the ED. ca1 Signatures: Dispatcher [employer] EDMS Frankie French MD MD pkl Davies, Jonathon, RN RN jd3 Alicia Calles RN RN ca1 Saira Murillo cl3 Trim, Obie tt3 Corrections: (The following items were deleted from the chart) 00:04 08/12 23:52 Pulse 73bpm; Resp 20bpm; Spontaneous; Pulse Ox 97% RA; josé jadela
--- NOTE | 2020-08-12 23:40 | EDPHYS ---
Physician Documentation [facility] Name: Amie Irizarry Age: 44 yrs Sex: Female : 1975 Arrival Date: 08/12/2020 Time: 21:31 Bed 15 Private MD: ED Physician Frankie French HPI: 08/12 22:03 This 44 yrs old Female presents to ER via EMS with complaints of Overdose. pkl 22:03 The patient presents to the emergency department after a known overdose, that was pkl intentional. Patient took unknown quantity of Metoprolol 100 mg Lisinopril ( unknown dose ) about 1 hour ago.. Patient said she was upset. 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 - Social history:: Smoking status: Patient denies any tobacco usage or history of. ROS: 22:03 Eyes: Negative for injury, pain, redness, and discharge, ENT: Negative for injury, pkl pain, and discharge, Neck: Negative for injury, pain, and swelling, Cardiovascular: Negative for chest pain, palpitations, and edema, Respiratory: Negative for shortness of breath, cough, wheezing, and pleuritic chest pain, Abdomen/GI: Negative for abdominal pain, nausea, vomiting, diarrhea, and constipation, Back: Negative for injury and pain, : Negative for injury, bleeding, discharge, and swelling, MS/Extremity: Negative for injury and deformity, Skin: Negative for injury, rash, and discoloration. 22:03 Neuro: Positive for altered mental status. 22:03 Psych: Positive for depression. Exam: 22:03 Head/Face: Normocephalic, atraumatic. Eyes: Pupils equal round and reactive to light, pkl extra-ocular motions intact. Lids and lashes normal. Conjunctiva and sclera are non-icteric and not injected. Cornea within normal limits. Periorbital areas with no swelling, redness, or edema. ENT: Nares patent. No nasal discharge, no septal abnormalities noted. Tympanic membranes are normal and external auditory canals are clear. Oropharynx with no redness, swelling, or masses, exudates, or evidence of obstruction, uvula midline. Mucous membranes moist. Neck: Trachea midline, no thyromegaly or masses palpated, and no cervical lymphadenopathy. Supple, full range of motion without nuchal rigidity, or vertebral point tenderness. No Meningismus. Chest/axilla: Normal chest wall appearance and motion. Nontender with no deformity. No lesions are appreciated. Cardiovascular: Regular rate and rhythm with a normal S1 and S2. No gallops, murmurs, or rubs. Normal PMI, no JVD. No pulse deficits. Respiratory: Lungs have equal breath sounds bilaterally, clear to auscultation and percussion. No rales, rhonchi or wheezes noted. No increased work of breathing, no retractions or nasal flaring. Abdomen/GI: Soft, non-tender, with normal bowel sounds. No distension or tympany. No guarding or rebound. No evidence of tenderness throughout. Back: No spinal tenderness. No costovertebral tenderness. Full range of motion. Skin: Warm, dry with normal turgor. Normal color with no rashes, no lesions, and no evidence of cellulitis. MS/ Extremity: Pulses equal, no cyanosis. Neurovascular intact. Full, normal range of motion. 22:03 Neuro: Orientation: appropriate for stated age, Mentation: responsive to voice able to follow commands. 22:03 Psych: Behavior/mood is cooperative, Affect is calm, Patient having thoughts of suicide. Vital Signs: 21:48 BP 129 / 91; Pulse 80; Resp 18 S; Temp 97.2(TE); Pulse Ox 97% on R/A; Weight 77.11 kg jd3 (R); Height 5 ft. 3 in. (160.02 cm) (R); Pain 0/10; 22:15 BP 107 / 71; Pulse 67; Resp 20 S; Pulse Ox 97% on R/A; jd3 22:30 BP 64 / 50; Pulse 67; Resp 14 S; Pulse Ox 96% on R/A; jd3 22:40 BP 88 / 55; Pulse 69; Resp 17 S; Pulse Ox 98% on R/A; jd3 22:50 BP 108 / 95; Pulse 86; Resp 16 S; Pulse Ox 97% on R/A; jd3 23:00 BP 107 / 76; Pulse 76; Resp 17 S; Pulse Ox 96% on R/A; jd3 23:15 BP 114 / 81; Pulse 74; Resp 20 S; Pulse Ox 96% on R/A; jd3 23:30 BP 111 / 84; Pulse 75; Resp 20 S; Pulse Ox 98% on R/A; jd3 23:52 BP 111 / 73; Pulse 73; Resp 20 S; Pulse Ox 97% on R/A; jd3 08/13 00:20 BP 110 / 76; Pulse 75; Resp 18; Pulse Ox 99% on R/A; Pain 0/10; ca1 08/12 21:48 Body Mass Index 30.11 (77.11 kg, 160.02 cm) [facility] Procedures: 08/12 23:15 Central Line: the site was prepped with Betadine, in sterile fashion, a triple lumen jr8 catheter was inserted, in the right femoral vein, in 1 attempts. placement was verified, by blood return, the site was dressed with 4X4s, Tegaderm, foam tape, using sterile technique, the patient tolerated the procedure, well. MDM: 21:42 Patient medically screened. pkl 23:35 Data reviewed: vital signs, nurses notes, lab test result(s), EKG, radiologic studies, pkl plain films. ED course: Talked to Dr. German, transfer to [facility]. 08/12 21:51 Order name: Acetaminophen; Complete Time: 00:40 [facility] 08/12 21:51 Order name: Basic Metabolic Panel; Complete Time: 00:40 [facility] 08/12 21:51 Order name: CBC with Diff; Complete Time: 23:20 [facility] 08/12 21:51 Order name: ETOH Level; Complete Time: 23:44 [facility] 08/12 21:51 Order name: Hepatic Function; Complete Time: 00:40 [facility] 08/12 21:51 Order name: PT-INR; Complete Time: 23:20 [facility] 08/12 21:51 Order name: Ptt, Activated; Complete Time: 23:20 [facility] 08/12 21:51 Order name: Salicylate; Complete Time: 23:20 [facility] 08/12 23:55 Order name: XRAY CXR (1 view) pkl 08/12 21:51 Order name: EKG; Complete Time: 21:52 [facility] 08/12 21:51 Order name: EKG - Nurse/Tech; Complete Time: 22:09 [facility] 08/12 21:51 Order name: IV Saline Lock; Complete Time: 22:09 [facility] 08/12 21:51 Order name: Labs collected and sent; Complete Time: 22:09 [facility] 08/12 22:16 Order name: Accucheck: q hourly; Complete Time: 23:26 pkl Administered Medications: 22:17 Not Given (Physician Discretion): NS 0.9% 1000 ml IV at 125 ml/hr continuous jd3 22:17 CANCELLED (Physician Discretion): NS 0.9% 1000 ml IV at 1 bolus Per protocol; 1000 mL j bolus 22:18 Drug: NS 0.9% 1000 ml Route: IV; Rate: 1000 ml; Site: left antecubital; [facility] 08/13 00:06 Follow up: Response: No adverse reaction; IV Status: Completed infusion; IV Intake: jd3 1000ml 01:15 Follow up: IV Status: Completed infusion; IV Intake: 1000ml [facility] 08/12 22:18 Drug: NS 0.9% 1000 ml Route: IV; Rate: 125 ml/hr; Site: left antecubital; [facility] 08/13 00:06 Follow up: Response: No adverse reaction; IV Status: Infusion continued upon transfer [facility] 08/12 22:20 Drug: Zofran (Ondansetron) 4 mg Route: IVP; Site: right antecubital; jd3 22:30 Follow up: Response: No adverse reaction; Nausea is decreased jd3 22:40 Drug: Glucagon 5 mg Route: IVP; Site: right antecubital; jd3 22:45 Follow up: Response: Vomiting increased jd3 22:40 Drug: Zofran (Ondansetron) 8 mg Route: IVP; Site: right antecubital; [facility] 08/13 00:07 Follow up: Response: No adverse reaction; Nausea is decreased; Vomiting decreased jd3 00:45 Drug: K-Dur 40 mEq Route: PO; ca1 01:15 Follow up: Response: No adverse reaction; No change in condition ca1 Disposition: 08/12 23:44 Co-signature as Attending Physician, Frankie French MD. pkl Disposition: 08/12/20 23:39 Transfer ordered to [facility]. Diagnosis is Drugs ( Metoprolol, Lisinopril ) Overdose. Suicidal ideation. - Reason for transfer: Higher level of care. - Accepting physician is Dr. German. - Condition is Stable. - Problem is new. - Symptoms have improved. 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 josé jd3 08/13 01:16 08/12 23:39 08/12/2020 23:39 Transfer ordered to [facility]. Diagnosis is Drugs ( ca1 Metoprolol, Lisinopril ) Overdose. Suicidal ideation. Reason for transfer: Higher level of care. Accepting physician is Dr. German. Condition is Stable. Problem is new. Symptoms have improved. pkl
[2020-08-13 00:17] LABS: ALT/SGPT 43 U/L (12-78); AST/SGOT 26 U/L (15-37); Albumin 3.4 g/dL (3.4-5.0); Alkaline Phosphatase 89 U/L (45-117); BUN Blood Urea Nitrogen 17 mg/dL (7-18); Bicarbonate 23 mmol/L (21-32); Bilirubin Direct < 0.1 mg/dL (0-0.2); Bilirubin Total 0.4 mg/dL (0.2-1.0); Glucose Level 306 mg/dL (74-106); Potassium 3.2 mmol/L (3.5-5.1); Protein, Total 7.3 g/dL (6.4-8.2); Sodium Level 138 mmol/L (136-145)
[2020-08-13] MEDS ORDERED: POTASSIUM CL SA 10 MEQ TAB PO ONE (00:57)
--- NOTE | 2020-08-13 06:04 | EKG ---
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
--- NOTE | 2020-08-13 08:12 | RAD REPORT ---
EXAM DESCRIPTION: RAD - Chest Single View - 08/13/2020 12:14 am CLINICAL HISTORY: drug overdose, shortness of breath COMPARISON: Portable May 2019 TECHNIQUE: AP portable chest image was obtained 08/13/2020 12:14 am . FINDINGS: Lung volumes are low. No focal lung parenchymal process. No failure or volume overload. No pulmonary edema findings seen. Heart and vasculature are normal. No measurable pleural effusion and no pneumothorax. No acute bony abnormality seen. No acute aortic findings suspected. IMPRESSION: No acute cardiopulmonary process. No significant change from comparison study.
[2020-08-13 11:14] VITALS: TEMP 97.2
[2020-08-13 11:30] VITALS: BP 110/76; O2SAT 99
== END 2020-08-13 01:16 | disposition short-term general hospital (02) ==
LOC: ER 21:31
PROC: 06HT33Z Insertion of Infusion Device into Right Foot Vein, Percutaneous Approach (ICD-10-PCS; principal; 2020-08-13)
DX: T46.4X2A Poisoning by angiotensin-converting-enzyme inhibitors, intentional self-harm, initial encounter (principal); I10 Essential (primary) hypertension; E11.9 Type 2 diabetes mellitus without complications; Z88.5 Allergy status to narcotic agent; Z88.8 Allergy status to other drugs, medicaments and biological substances
CPT/HCPCS: 96361; 93005; 85025; 80048; 36415; 80320; 80329 ×2; 85610; 80076; 85730; 71045; 96375; 96374; 99285; 36556; J1610 ×3; J7030; J2405 ×2

== ENCOUNTER 2022-11-13 19:49 | Inpatient (IN) | payer BC ==
--- OUTSIDE RECORDS SUMMARY | 2022-11-13 20:20 | XMS REPORT | Continuity of Care Document ---
:1975 Author Organization [facility] t Address [address] [place] [address] Care Team Providers Name Role Phone ChristopherDelberth M Primary Care Physician KEAGAN VARGAS Attending Clinician Unavailable Harmony Araya PA-C Attending Clinician HARMONY ARAYA Attending Clinician Unavailable Case RNDebby Attending Clinician Unavailable Alonso Diaz Attending Clinician Unknown, Attending Attending Clinician Unavailable ALONSO AMES Attending Clinician Unavailable Provider, [facility] Attending Clinician Unavailable KEVIN PULIDO Attending Clinician Unavailable Giuseppe Montano MD K.HShawna Attending Clinician David Valdez MD Attending Clinician DAVID VALDEZ Attending Clinician Unavailable 2, [facility] Attending Clinician Unavailable GIUSEPPE MONTANO.HShawna Attending Clinician Unavailable Helen Ugalde MD Attending Clinician [phone] GOKUL PERSAUD Attending Clinician Unavailable Gokul Persaud MD Attending Clinician Doctor Unassigned, [place] Attending Clinician Unavailable ChristopherJosh Attending Clinician ANDRES GARZON Attending Clinician Unavailable ANDRES GARZON Attending Clinician Unavailable Only, Adc Pob2 Test Attending Clinician Unavailable Merritt Pettit DO Attending Clinician MERRITT PETTIT Attending Clinician Unavailable ELANA AGUIRRE Attending Clinician Unavailable ROSS HANSEN Attending Clinician Unavailable Kevin Pulido MD Attending Clinician Seth MILES, Erick Attending Clinician ERICK ANN Attending Clinician Unavailable [place] Degroot MD Attending Clinician JOSE VELIZ Attending Clinician Unavailable LEILA DAVE Attending Clinician Unavailable Nurse, Lorena Meadows Attending Clinician Unavailable Tracee MARK, Kal Attending Clinician KAL MAURICIO Attending Clinician Unavailable Hortensia Balderas MD Attending Clinician Jory Huang Attending Clinician Luma Mondragon RN Attending Clinician Unavailable Nuha Ayon RN Attending Clinician Unavailable Citlalli Sheikh MD Attending Clinician CITLALLI SHEIKH Attending Clinician Unavailable Floyr Nagy PA-C Attending Clinician Team, [facility] Attending Clinician UnavailCLIFF Marvin Attending Clinician Unavailable Erin Jacques RN Attending Clinician Unavailable Colton, Lorena Meadows Attending Clinician Unavailable HOUSTON DEGROOT Attending Clinician Unavailable Ami Reid RN Attending Clinician Unavailable FLORY NAGY Attending Clinician Unavailable Vesta Murphy RN Attending Clinician Unavailable Shen PAC, Alva S Attending Clinician Provider, [facility] Attending Clinician Unavailable Gi Qiu Attending Clinician HORTENSIA BALDERAS Attending Clinician Unavailable Keagan Vargas MD Attending Clinician Lorenza Yañez Attending Clinician Lab, Adc Fam Pob I Attending Clinician Unavailable LORENZA PEARSON Attending Clinician Unavailable Pob1, [facility] Attending Clinician Unavailable GI JANSEN Attending Clinician Unavailable Sarah Mahmood PA-C Attending Clinician SARAH MAHMOOD Attending Clinician Unavailable Nurse, Adc Fam Attending Clinician Unavailable HELEN UGALDE Attending Clinician Unavailable UNKNOWN, ATTENDING Attending Clinician Unavailable Gi Dalal Attending Clinician [phone] KEAGAN VARGAS Admitting Clinician Unavailable DAVID VALDEZ Admitting Clinician Unavailable KEVIN PULIDO Admitting Clinician Unavailable Keagan Vargas MD Admitting Clinician Payers Payer Name Policy Type Policy Number Effective Date Expiration Date S verna [employer] [place] [id number] 2014 EMPLOYEE PLAN 00:00:00 Problems Condition Condition Condition Status Onset Resolution Last Treating Co mments Source Name Details Category Date Date Treatment Clinician Date Dysuria Dysuria Disease Active Univers 8-19 ity of 00:00: [place] 00 [facility] Branch Change in Change in Disease Active Uni vers nail nail 8-19 ity of appearance appearance 00:[place] [facility] Suicide Suicide Disease Active 2019-09 Univers attempt by attempt by 1-19 it y of beta beta 00:00: [place] primo primo 00 Medical overdose overdose Branch Need for Need for Disease Active Unive rs influenza influenza 9-23 ity of vaccinatio vaccinatio [place] [facility] Acute URI Acute URI Disease Active Uni vers 9-18 ity of 00:00: 00 Medical Branch COVID-19 COVID-19 Disease Active Unive rs virus virus 9-11 ity of infection infection 00:00: [facility] Medical [facility] Dyslipidem Dyslipidem Disease Active U nivers ia ia 5-25 ity of 00:00: Medical Branch Palpitatio Palpitatio Disease Active U nivers ns ns 5-25 ity of 00:00: [place] [facility] Sleep-diso Sleep-diso Disease Active U nivers rdered rdered 5-25 ity of breathing breathing 00:[place] [facility] Overweight Overweight Disease Active U nivers (BMI (BMI 5-25 ity of 25.0-29.9) 25.0-29.9) 00[place]00: [place] [facility] Type 2 Type 2 Disease Active 2014-09 Univers diabetes diabetes 1-09 ity of mellitus mellitus 00:00: [place] without without 00 Medical complicati complicati Br anch on on Uncontroll Uncontroll Disease Active Overview : Univers ed ed 2-10 Formattin ity of diabetes diabetes 00:00: g of this [place] as mellitus, mellitus, 00 note Medi dev without without might be Branch long-term long-term different current current from the use of use of original. insulin insulin ICD10 Diagnosis Term Track Fitter Utility Group B Group B Disease Active Univers streptococ streptococ 2-10 it y of dev UTI dev UTI 00:00: [place] [facility] HLD HLD Disease Active Univers (hyperlipi (hyperlipi 2-10 it y of demia) demia) 00:00: [place] [facility] Hypertrigl Hypertrigl Disease Active U nivers yceridemia yceridemia 2-10 it y of 00:00: [place] [facility] H/O acute H/O acute Disease Active Uni vers pancreatit pancreatit 2-10 it y of is is 00:00: [place] [facility] Fatigue Fatigue Disease Active Univers 2-10 ity of 00:00: [place] [facility] Muscle Muscle Disease Active Univers cramp cramp 2-10 ity of 00:00: [place] [facility] Falling Falling Disease Active Univers hair hair 2-10 ity of 00:00: [place] [facility] Anovulator Anovulator Disease Active U nivers y y 2-10 ity of amenorrhea amenorrhea 00:00: [place] [facility] Vitamin D Vitamin D Disease Active Uni vers deficiency deficiency 2-10 it y of 00:00: [place] [facility] Myalgia Myalgia Disease Active Univers 2-10 ity of 00:00: [place] [facility] Weight Weight Disease Active Univers gain gain 2-10 ity of 00:00: [place] [facility] Diabetes Diabetes Disease Active Overview: Un janet mellitus mellitus 2-10 ICD10 ity of type 2, type 2, 00:00: Diagnosis [place] uncontroll uncontroll 00 Term Me dical ed, ed, Track Fitter Branch without without Utility complicati complicati ons ons Urinary Urinary Disease Active Univers tract tract 2-10 ity of infection, infection, [place] not site not 00 Medica l specified specified Bran ch Edema Edema Disease Active Univers 1-21 ity of 00:00: [place] [facility] 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 10-15 ity of 00:00: [place] [facility] Diabetes Diabetes Disease Active Unive rs - ity of 00:00: [place] [facility] GERD GERD Disease Active Univers (gastroeso (gastroeso 10-15 it y of phageal phageal 00:00: [place] reflux reflux Medical disease) disease) Branch Essential Essential Disease Active Uni vers hypertensi hypertensi - it y of on on 00:00: [place] [facility] Edema Edema Disease Active Univers 10-15 ity of 00:00: [place] [facility] Obesity Obesity Disease Resolve 2014-11-04 2014-11-04 Univers d 2-10 00:00:00 19:19:45 ity of 00:00: [place] 00 Medical Branch Allergies, Adverse Reactions, Alerts Allergy Allergy Status Severity Reaction(s) Onset Inactive Treating Comm ents Source Name Type Date Date Clinician FLUCONAZ DRUG Active Swelling Univer s OLE INGREDI 1-07 ity of 00:00: [place] 00 Medical Branch Fluconaz Propensi Active Swelling Univ ers ole ty to 07 ity of adverse 00:00: [place] reaction Medical s Branch MEPERIDI DRUG Active Rash Univers NE HCL INGREDI 1-13 ity of 00:00: [place] 00 Medical Branch Meperidi Propensi Active Shortness of Univers ne Hcl ty to Breath 1-13 ity of adverse 00:00: [place] reaction Medical s Branch Social History Social Habit Start Date Stop Date Quantity Comments Source History SDNE University o f Alcohol Frequency [place] [facility] History [facility] University o f Alcohol Std [place] [facility] Drinks Branch History [facility] o f Alcohol Binge [place] [facility] Alcohol intake 2022-09-20 2022-09-20 .24 /d University of 00:00:00 00:00:00 [place] [facility] Exposure to 2022-09-03 2022-09-13 Not sure [facility] SARS-CoV-2 00:00:00 10:01:00 [facility] (event) [place] Tobacco use and 2022-08-11 2022-08-11 Smokeless tobacco Un iversity of exposure 00:00:00 00:00:00 non-user [facility] Alcohol Comment 2015-12-21 2015-12-21 Occasional Universit y of 00:00:00 00:00:00 [facility] Sex [birth year] At [birth year] Universit y of 00:00:00 00:00:00 [facility] Smoking Status Start Date Stop Date Source Never smoked tobacco [facility] Medications Ordered Filled Start Stop Current Ordering Indication Dosage Frequency Signature Comments Components Source Medication Medication Date Date Medication? Clinician (SIG) Name Name Lynn Yes [id number] 500mg Take 1 Univers r (VALTREX) 1-12 tablet by ity of 500 mg 00:00: mouth in [place] tablet 00 the Medical morning Branch and 1 tablet in the evening. amoxicillin 2021-09- Yes [id number] 1{tbl} Take 1 Univers -clavulanat 2-27 01-04 tablet by it y of e 00:00: 05:59 mouth in [place] (AUGMENTIN) 00 :00 the Medical 875-125 mg morning Branch per tablet and 1 tablet in the evening. Do all this for 7 days. amoxicillin 2021-09- Yes [id number] 1{tbl} Take 1 Univers -clavulanat 2-27 01-04 tablet by it y of e 00:00: 05:59 mouth in [place] (AUGMENTIN) 00 :00 the Medical 875-125 mg morning Branch per tablet and 1 tablet in the evening. Do all this for 7 days. amoxicillin 2021-09- Yes [id number] 1{tbl} Take 1 Univers -clavulanat 2-27 01-04 tablet by it y of e 00:00: 05:59 mouth in [place] (AUGMENTIN) 00 :00 the Medical 875-125 mg morning Branch per tablet and 1 tablet in the evening. Do all this for 7 days. sulfamethox 2021-09 Yes [id number] 1{tbl} Take 1 Univers azole-trime 2-20 tablet by ity of thoprim 00:00: mouth in [place] (BACTRIM 00 the Medical ) 800-160 morning Branc h mg per and 1 tablet tablet in the evening. mupirocin 2 2021-09 Yes [id number] Apply to Univers % ointment 2-20 area(s) 3 ity of 00:00: (three) [place] 00 times Medical daily. Branch ibuprofen 2021-09 Yes [id number] 600mg Take 1 U nivers 600 mg 2-20 tablet by ity of tablet 00:00: mouth [place] 00 every 6 Medical (six) Branch hours as needed for Pain (scale 4-6). sulfamethox 2021-09 Yes [id number] 1{tbl} Take 1 Univers azole-trime 2-20 tablet by ity of thoprim 00:00: mouth in [place] (BACTRIM 00 the Medical ) 800-160 morning Branc h mg per and 1 tablet tablet in the evening. mupirocin 2 2021-09 Yes [id number] Apply to Univers % ointment 2-20 area(s) 3 ity of 00:00: (three) [place] 00 times Medical daily. Branch ibuprofen 2021-09 Yes [id number] 600mg Take 1 U nivers 600 mg 2-20 tablet by ity of tablet 00:00: mouth [place] 00 every 6 Medical (six) Branch hours as needed for Pain (scale 4-6). sulfamethox 2021-09 Yes [id number] 1{tbl} Take 1 Univers azole-trime 2-20 tablet by ity of thoprim 00:00: mouth in [place] (BACTRIM 00 the Medical ) 800-160 morning Branc h mg per and 1 tablet tablet in the evening. mupirocin 2 2021-09 Yes [id number] Apply to Univers % ointment 2-20 area(s) 3 ity of 00:00: (three) [place] 00 times Medical daily. Branch ibuprofen 2021-09 Yes [id number] 600mg Take 1 U nivers 600 mg 2-20 tablet by ity of tablet 00:00: mouth [place] 00 every 6 Medical (six) Branch hours as needed for Pain (scale 4-6). sulfamethox 2021-09 Yes [id number] 1{tbl} Take 1 Univers azole-trime 2-20 tablet by ity of thoprim 00:00: mouth in [place] (BACTRIM 00 the Medical ) 800-160 morning Branc h mg per and 1 tablet tablet in the evening. mupirocin 2 2021-09 Yes [id number] Apply to Univers % ointment 2-20 area(s) 3 ity of 00:00: (three) [place] 00 times Medical daily. Branch ibuprofen 2021-09 Yes [id number] 600mg Take 1 U nivers 600 mg 2-20 tablet by ity of tablet 00:00: mouth [place] 00 every 6 Medical (six) Branch hours as needed for Pain (scale 4-6). sulfamethox 2021-09 Yes [id number] 1{tbl} Take 1 Univers azole-trime 2-20 tablet by ity of thoprim 00:00: mouth in [place] (BACTRIM 00 the Medical ) 800-160 morning Branc h mg per and 1 tablet tablet in the evening. mupirocin 2 2021-09 Yes [id number] Apply to Univers % ointment 2-20 area(s) 3 ity of 00:00: (three) [place] 00 times Medical daily. Branch ibuprofen 2021-09 Yes [id number] 600mg Take 1 U nivers 600 mg 2-20 tablet by ity of tablet 00:00: mouth [place] 00 every 6 Medical (six) Branch hours as needed for Pain (scale 4-6). sulfamethox 2021-09 Yes [id number] 1{tbl} Take 1 Univers azole-trime 2-20 tablet by ity of thoprim 00:00: mouth in [place] (BACTRIM 00 the Medical ) 800-160 morning Branc h mg per and 1 tablet tablet in the evening. mupirocin 2 2021-09 Yes [id number] Apply to Univers % ointment 2-20 area(s) 3 ity of 00:00: (three) [place] 00 times Medical daily. Branch ibuprofen 2021-09 Yes [id number] 600mg Take 1 U nivers 600 mg 2-20 tablet by ity of tablet 00:00: mouth [place] 00 every 6 Medical (six) Branch hours as needed for Pain (scale 4-6). sulfamethox 2021-09 Yes [id number] 1{tbl} Take 1 Univers azole-trime 2-20 tablet by ity of thoprim 00:00: mouth in [place] (BACTRIM 00 the Medical ) 800-160 morning Branc h mg per and 1 tablet tablet in the evening. mupirocin 2 2021-09 Yes [id number] Apply to Univers % ointment 2-20 area(s) 3 ity of 00:00: (three) [place] 00 times Medical daily. Branch ibuprofen 2021-09 Yes [id number] 600mg Take 1 U nivers 600 mg 2-20 tablet by ity of tablet 00:00: mouth [place] 00 every 6 Medical (six) Branch hours as needed for Pain (scale 4-6). sulfamethox 2021-09 Yes [id number] 1{tbl} Take 1 Univers azole-trime 2-20 tablet by ity of thoprim 00:00: mouth in [place] (BACTRIM 00 the Medical ) 800-160 morning Branc h mg per and 1 tablet tablet in the evening. mupirocin 2 2021-09 Yes [id number] Apply to Univers % ointment 2-20 area(s) 3 ity of 00:00: (three) [place] 00 times Medical daily. Branch ibuprofen 2021-09 Yes [id number] 600mg Take 1 U nivers 600 mg 2-20 tablet by ity of tablet 00:00: mouth [place] 00 every 6 Medical (six) Branch hours as needed for Pain (scale 4-6). lisinopriL- 2021-09 Yes [id number] 1{tbl} Take 1 Univers hydrochloro 0-20 tablet by ity of thiazide 00:00: mouth in [place] 20-25 mg 00 the Medical per tablet morning. Branc h LOVAZA, 2021-09 Yes [id number] 2g Take 2 Uni vers omega-3-aci 0-20 capsules ity of d ethyl 00:00: by mouth [place] esters, 1 00 in the Medical gram morning Branch capsule and 2 capsules in the evening. Take with meals. Add one capsule at lunch metoprolol 2021-09 Yes [id number] 100mg Take 1 Univers tartrate 0-20 tablet by ity of 100 mg 00:00: mouth in [place] tablet 00 the Medical morning Branch and 1 tablet in the evening. lisinopriL- 2021-09 Yes [id number] 1{tbl} Take 1 Univers hydrochloro 0-20 tablet by ity of thiazide 00:00: mouth in [place] 20-25 mg 00 the Medical per tablet morning. [facility] VIPIN, 2021-09 Yes [id number] 2g Take 2 Uni vers omega-3-aci 0-20 capsules ity of d ethyl 00:00: by mouth [place] esters, 1 00 in the Medical gram morning Branch capsule and 2 capsules in the evening. Take with meals. Add one capsule at lunch metoprolol 2021-09 Yes [id number] 100mg Take 1 Univers tartrate 0-20 tablet by ity of 100 mg 00:00: mouth in [place] tablet 00 the Medical morning Branch and 1 tablet in the evening. lisinopriL- 2021-09 Yes [id number] 1{tbl} Take 1 Univers hydrochloro 0-20 tablet by ity of thiazide 00:00: mouth in [place] 20-25 mg 00 the Medical per tablet morning. [facility] VIPIN, 2021-09 Yes [id number] 2g Take 2 Uni vers omega-3-aci 0-20 capsules ity of d ethyl 00:00: by mouth [place] esters, 1 00 in the Medical gram morning Branch capsule and 2 capsules in the evening. Take with meals. Add one capsule at lunch metoprolol 2021-09 Yes [id number] 100mg Take 1 Univers tartrate 0-20 tablet by ity of 100 mg 00:00: mouth in [place] tablet 00 the Medical morning Branch and 1 tablet in the evening. lisinopriL- 2021-09 Yes [id number] 1{tbl} Take 1 Univers hydrochloro 0-20 tablet by ity of thiazide 00:00: mouth in [place] 20-25 mg 00 the Medical per tablet morning. [facility] VIPIN, 2021-09 Yes [id number] 2g Take 2 Uni vers omega-3-aci 0-20 capsules ity of d ethyl 00:00: by mouth [place] esters, 1 00 in the Medical gram morning Branch capsule and 2 capsules in the evening. Take with meals. Add one capsule at lunch metoprolol 2021-09 Yes [id number] 100mg Take 1 Univers tartrate 0-20 tablet by ity of 100 mg 00:00: mouth in [place] tablet 00 the Medical morning Branch and 1 tablet in the evening. lisinopriL- 2021-09 Yes [id number] 1{tbl} Take 1 Univers hydrochloro 0-20 tablet by ity of thiazide 00:00: mouth in [place] 20-25 mg 00 the Medical per tablet morning. [facility] VIPIN, 2021-09 Yes [id number] 2g Take 2 Uni vers omega-3-aci 0-20 capsules ity of d ethyl 00:00: by mouth [place] esters, 1 00 in the Medical gram morning Branch capsule and 2 capsules in the evening. Take with meals. Add one capsule at lunch metoprolol 2021-09 Yes [id number] 100mg Take 1 Univers tartrate 0-20 tablet by ity of 100 mg 00:00: mouth in [place] tablet 00 the Medical morning Branch and 1 tablet in the evening. lisinopriL- 2021-09 Yes [id number] 1{tbl} Take 1 Univers hydrochloro 0-20 tablet by ity of thiazide 00:00: mouth in [place] 20-25 mg 00 the Medical per tablet morning. [facility] VIPIN, 2021-09 Yes [id number] 2g Take 2 Uni vers omega-3-aci 0-20 capsules ity of d ethyl 00:00: by mouth [place] esters, 1 00 in the Medical gram morning Branch capsule and 2 capsules in the evening. Take with meals. Add one capsule at lunch metoprolol 2021-09 Yes [id number] 100mg Take 1 Univers tartrate 0-20 tablet by ity of 100 mg 00:00: mouth in [place] tablet 00 the Medical morning Branch and 1 tablet in the evening. lisinopriL- 2021-09 Yes [id number] 1{tbl} Take 1 Univers hydrochloro 0-20 tablet by ity of thiazide 00:00: mouth in [place] 20-25 mg 00 the Medical per tablet morning. [facility] VIPIN, 2021-09 Yes [id number] 2g Take 2 Uni vers omega-3-aci 0-20 capsules ity of d ethyl 00:00: by mouth [place] esters, 1 00 in the Medical gram morning Branch capsule and 2 capsules in the evening. Take with meals. Add one capsule at lunch metoprolol 2021-09 Yes [id number] 100mg Take 1 Univers tartrate 0-20 tablet by ity of 100 mg 00:00: mouth in [place] tablet 00 the Medical morning Branch and 1 tablet in the evening. lisinopriL- 2021-09 Yes [id number] 1{tbl} Take 1 Univers hydrochloro 0-20 tablet by ity of thiazide 00:00: mouth in [place] 20-25 mg 00 the Medical per tablet morning. [facility] VIPIN, 2021-09 Yes [id number] 2g Take 2 Uni vers omega-3-aci 0-20 capsules ity of d ethyl 00:00: by mouth [place] esters, 1 00 in the Medical gram morning Branch capsule and 2 capsules in the evening. Take with meals. Add one capsule at lunch metoprolol 2021-09 Yes [id number] 100mg Take 1 Univers tartrate 0-20 tablet by ity of 100 mg 00:00: mouth in [place] tablet 00 the Medical morning Branch and 1 tablet in the evening. lisinopriL- 2021-09 Yes [id number] 1{tbl} Take 1 Univers hydrochloro 0-20 tablet by ity of thiazide 00:00: mouth in [place] 20-25 mg 00 the Medical per tablet morning. [facility] VIPIN, 2021-09 Yes [id number] 2g Take 2 Uni vers omega-3-aci 0-20 capsules ity of d ethyl 00:00: by mouth [place] esters, 1 00 in the Medical gram morning Branch capsule and 2 capsules in the evening. Take with meals. Add one capsule at lunch metoprolol 2021-09 Yes [id number] 100mg Take 1 Univers tartrate 0-20 tablet by ity of 100 mg 00:00: mouth in [place] tablet 00 the Medical morning Branch and 1 tablet in the evening. lisinopriL- 2021-09 Yes [id number] 1{tbl} Take 1 Univers hydrochloro 0-20 tablet by ity of thiazide 00:00: mouth in [place] 20-25 mg 00 the Medical per tablet morning. [facility] VIPIN, 2021-09 Yes [id number] 2g Take 2 Uni vers omega-3-aci 0-20 capsules ity of d ethyl 00:00: by mouth [place] esters, 1 00 in the Medical gram morning Branch capsule and 2 capsules in the evening. Take with meals. Add one capsule at lunch metoprolol 2021-09 Yes [id number] 100mg Take 1 Univers tartrate 0-20 tablet by ity of 100 mg 00:00: mouth in [place] tablet 00 the Medical morning Branch and 1 tablet in the evening. lisinopriL- 2021-09 Yes [id number] 1{tbl} Take 1 Univers hydrochloro 0-20 tablet by ity of thiazide 00:00: mouth in [place] 20-25 mg 00 the Medical per tablet morning. [facility] VIPIN, 2021-09 Yes [id number] 2g Take 2 Uni vers omega-3-aci 0-20 capsules ity of d ethyl 00:00: by mouth [place] esters, 1 00 in the Medical gram morning Branch capsule and 2 capsules in the evening. Take with meals. Add one capsule at lunch metoprolol 2021-09 Yes [id number] 100mg Take 1 Univers tartrate 0-20 tablet by ity of 100 mg 00:00: mouth in [place] tablet 00 the Medical morning Branch and 1 tablet in the evening. lisinopriL- 2021-09 Yes [id number] 1{tbl} Take 1 Univers hydrochloro 0-20 tablet by ity of thiazide 00:00: mouth in [place] 20-25 mg 00 the Medical per tablet morning. [facility] VIPIN, 2021-09 Yes [id number] 2g Take 2 Uni vers omega-3-aci 0-20 capsules ity of d ethyl 00:00: by mouth [place] esters, 1 00 in the Medical gram morning Branch capsule and 2 capsules in the evening. Take with meals. Add one capsule at lunch metoprolol 2021-09 Yes [id number] 100mg Take 1 Univers tartrate 0-20 tablet by ity of 100 mg 00:00: mouth in [place] tablet 00 the Medical morning Branch and 1 tablet in the evening. lisinopriL- 2021-09 Yes [id number] 1{tbl} Take 1 Univers hydrochloro 0-20 tablet by ity of thiazide 00:00: mouth in [place] 20-25 mg 00 the Medical per tablet morning. [facility] VIPIN, 2021-09 Yes [id number] 2g Take 2 Uni vers omega-3-aci 0-20 capsules ity of d ethyl 00:00: by mouth [place] esters, 1 00 in the Medical gram morning Branch capsule and 2 capsules in the evening. Take with meals. Add one capsule at lunch metoprolol 2021-09 Yes [id number] 100mg Take 1 Univers tartrate 0-20 tablet by ity of 100 mg 00:00: mouth in [place] tablet 00 the Medical morning Branch and 1 tablet in the evening. ampicillin 2021- No [id number] 500mg Take 1 Univers 500 mg 06-20 [id number] capsule by ity of capsule 00:00: 04:59 mouth [place] 00 :00 every 6 Medical (six) Branch hours for 7 days. phenazopyri 2022-0 Yes [id number] 200mg Take 1 Univers dine 9-08 tablet by ity of (PYRIDIUM) 00:00: mouth in [place] 200 mg 00 the Medical tablet morning Branch and 1 tablet at noon and 1 tablet in the evening. Take after meals. phenazopyri 2022-0 Yes [id number] 200mg Take 1 Univers dine 9-08 tablet by ity of (PYRIDIUM) 00:00: mouth in [place] 200 mg 00 the Medical tablet morning Branch and 1 tablet at noon and 1 tablet in the evening. Take after meals. phenazopyri 2022-0 Yes [id number] 200mg Take 1 Univers dine 9-08 tablet by ity of (PYRIDIUM) 00:00: mouth in [place] 200 mg 00 the Medical tablet morning Branch and 1 tablet at noon and 1 tablet in the evening. Take after meals. phenazopyri 2022-0 Yes [id number] 200mg Take 1 Univers dine 9-08 tablet by ity of (PYRIDIUM) 00:00: mouth in [place] 200 mg 00 the Medical tablet morning Branch and 1 tablet at noon and 1 tablet in the evening. Take after meals. phenazopyri 2022-0 Yes [id number] 200mg Take 1 Univers dine 9-08 tablet by ity of (PYRIDIUM) 00:00: mouth in [place] 200 mg 00 the Medical tablet morning Branch and 1 tablet at noon and 1 tablet in the evening. Take after meals. phenazopyri 2022-0 Yes [id number] 200mg Take 1 [facility]-08 tablet by [facility] (PYRIDIUM) 00:00: mouth in [place] as 200 mg 00 the Medical tablet morning Branch and 1 tablet at noon and 1 tablet in the evening. Take after meals. phenazopyri 2022-0 Yes [id number] 200mg Take 1 [facility] d[facility] 9-08 tablet by [facility] of (PYRIDIUM) 00:00: mouth in [place] as 200 mg 00 the Medical tablet morning Branch and 1 tablet at noon and 1 tablet in the evening. Take after meals. phenazopyri 2022-0 Yes [id number] 200mg Take 1 [facility] dine 9-08 tablet by [facility] of (PYRIDIUM) 00:00: mouth in [place] 200 mg 00 the Medical tablet morning Branch and 1 tablet at noon and 1 tablet in the evening. Take after meals. phenazopyri 2022-0 Yes [id number] 200mg Take 1 [facility] dine 9-08 tablet by [facility] of (PYRIDIUM) 00:00: mouth in [place] as 200 mg 00 the Medical tablet morning Branch and 1 tablet at noon and 1 tablet in the evening. Take after meals. phenazopyri 2022-0 Yes [id number] 200mg Take 1 [facility] dine 9-08 tablet by [facility] of (PYRIDIUM) 00:00: mouth in [place] 200 mg 00 the Medical tablet morning Branch and 1 tablet at noon and 1 tablet in the evening. Take after meals. phenazopyri 2022-0 Yes [id number] 200mg Take 1 [facility] d[facility] 9-08 tablet by [facility] of (PYRIDIUM) 00:00: mouth in [place] 200 mg 00 the Medical tablet morning Branch and 1 tablet at noon and 1 tablet in the evening. Take after meals. phenazopyri 2022-0 Yes [id number] 200mg Take 1 [facility] dine 9-08 tablet by [facility] of (PYRIDIUM) 00:00: mouth in [place] as 200 mg 00 the Medical tablet morning Branch and 1 tablet at noon and 1 tablet in the evening. Take after meals. phenazopyri 2022-0 Yes [id number] 200mg Take 1 [facility] dine 9-08 tablet by [facility] of (PYRIDIUM) 00:00: mouth in [place] as 200 mg 00 the Medical tablet morning Branch and 1 tablet at noon and 1 tablet in the evening. Take after meals. phenazopyri 2022-0 Yes [id number] 200mg Take 1 [facility] dine 9-08 tablet by [facility] of (PYRIDIUM) 00:00: mouth in [place] as 200 mg 00 the Medical tablet morning Branch and 1 tablet at noon and 1 tablet in the evening. Take after meals. phenazopyri 2022-0 Yes [id number] 200mg Take 1 [facility] dine 9-08 tablet by [facility] of (PYRIDIUM) 00:00: mouth in [place] 200 mg 00 the Medical tablet morning Branch and 1 tablet at noon and 1 tablet in the evening. Take after meals. phenazopyri 2022-0 Yes [id number] 200mg Take 1 [facility] dine 9-08 tablet by [facility] of (PYRIDIUM) 00:00: mouth in [place] 200 mg 00 the Medical tablet morning Branch and 1 tablet at noon and 1 tablet in the evening. Take after meals. phenazopyri 2022-0 Yes [id number] 200mg Take 1 [facility] dine 9-08 tablet by [facility] of (PYRIDIUM) 00:00: mouth in [place] 200 mg 00 the Medical tablet morning Branch and 1 tablet at noon and 1 tablet in the evening. Take after meals. phenazopyri 2022-0 Yes [id number] 200mg Take 1 [facility] dine 9-08 tablet by [facility] of (PYRIDIUM) 00:00: mouth in [place] as 200 mg 00 the Medical tablet morning Branch and 1 tablet at noon and 1 tablet in the evening. Take after meals. phenazopyri 2022-0 Yes [id number] 200mg Take 1 [facility] dine 9-08 tablet by [facility] of (PYRIDIUM) 00:00: mouth in [place] as 200 mg 00 the Medical tablet morning Branch and 1 tablet at noon and 1 tablet in the evening. Take after meals. phenazopyri 2022-0 Yes [id number] 200mg Take 1 [facility] dine 9-08 tablet by [facility] of (PYRIDIUM) 00:00: mouth in [place] as 200 mg 00 the Medical tablet morning Branch and 1 tablet at noon and 1 tablet in the evening. Take after meals. phenazopyri 2022-0 Yes [id number] 200mg Take 1 [facility] dine 9-08 tablet by [facility] of (PYRIDIUM) 00:00: mouth in [place] as 200 mg 00 the Medical tablet morning Branch and 1 tablet at noon and 1 tablet in the evening. Take after meals. phenazopyri 2022-0 Yes [id number] 200mg Take 1 [facility] dine 9-08 tablet by [facility] of (PYRIDIUM) 00:00: mouth in [place] as 200 mg 00 the Medical tablet morning Branch and 1 tablet at noon and 1 tablet in the evening. Take after meals. phenazopyri 2022-0 Yes [id number] 200mg Take 1 [facility] dine 9-08 tablet by [facility] of (PYRIDIUM) 00:00: mouth in [place] as 200 mg 00 the Medical tablet morning Branch and 1 tablet at noon and 1 tablet in the evening. Take after meals. phenazopyri 2022-0 Yes [id number] 200mg Take 1 [facility] dine 9-08 tablet by [facility] of (PYRIDIUM) 00:00: mouth in [place] as 200 mg 00 the Medical tablet morning Branch and 1 tablet at noon and 1 tablet in the evening. Take after meals. levoFLOXaci 2022-0 Yes [id number] 750mg Take 1 [facility] n 750 mg 9-06 tablet by [facility] of tablet 00:00: mouth [place] 00 every 24 Medical (twenty-fo Branch ur) hours. levoFLOXaci 2022-0 Yes [id number] 750mg Take 1 [facility] n 750 mg 9-06 tablet by [facility] of tablet 00:00: mouth [place] 00 every 24 Medical (twenty-fo Branch ur) hours. levoFLOXaci 2022-0 Yes [id number] 750mg Take 1 [facility] n 750 mg 9-06 tablet by [facility] of tablet 00:00: mouth [place] 00 every 24 Medical (twenty-fo Branch ur) hours. levoFLOXaci 2022-0 Yes [id number] 750mg Take 1 [facility] n 750 mg 9-06 tablet by [facility] of tablet 00:00: mouth [place] 00 every 24 Medical (twenty-fo Branch ur) hours. levoFLOXaci 2022-0 Yes [id number] 750mg Take 1 [facility] n 750 mg 9-06 tablet by [facility] of tablet 00:00: mouth [place] 00 every 24 Medical (twenty-fo Branch ur) hours. levoFLOXaci 2022-0 Yes [id number] 750mg Take 1 [facility] n 750 mg 9-06 tablet by [facility] of tablet 00:00: mouth [place] 00 every 24 Medical (twenty-fo Branch ur) hours. levoFLOXaci 2022-0 Yes [id number] 750mg Take 1 [facility] n 750 mg 9-06 tablet by [facility] of tablet 00:00: mouth [place] 00 every 24 Medical (twenty-fo Branch ur) hours. levoFLOXaci 2022-0 Yes [id number] 750mg Take 1 [facility] n 750 mg 9-06 tablet by [facility] of tablet 00:00: mouth [place] 00 every 24 Medical (twenty-fo Branch ur) hours. levoFLOXaci 2022-0 Yes [id number] 750mg Take 1 [facility] n 750 mg 9-06 tablet by [facility] of tablet 00:00: mouth [place] 00 every 24 Medical (twenty-fo Branch ur) hours. levoFLOXaci 2022-0 Yes [id number] 750mg Take 1 [facility] n 750 mg 9-06 tablet by [facility] of tablet 00:00: mouth [place] 00 every 24 Medical (twenty-fo Branch ur) hours. levoFLOXaci 2022-0 Yes [id number] 750mg Take 1 [facility] n 750 mg 9-06 tablet by [facility] of tablet 00:00: mouth [place] 00 every 24 Medical (twenty-fo Branch ur) hours. levoFLOXaci 2022-0 Yes [id number] 750mg Take 1 [facility] n 750 mg 9-06 tablet by [facility] of tablet 00:00: mouth [place] 00 every 24 Medical (twenty-fo Branch ur) hours. levoFLOXaci 2022-0 Yes [id number] 750mg Take 1 [facility] n 750 mg 9-06 tablet by [facility] of tablet 00:00: mouth [place] 00 every 24 Medical (twenty-fo Branch ur) hours. levoFLOXaci 2022-0 Yes [id number] 750mg Take 1 [facility] n 750 mg 9-06 tablet by [facility] of tablet 00:00: mouth [place] 00 every 24 Medical (twenty-fo Branch ur) hours. levoFLOXaci 2022-0 Yes [id number] 750mg Take 1 [facility] n 750 mg 9-06 tablet by [facility] of tablet 00:00: mouth [place] 00 every 24 Medical (twenty-fo Branch ur) hours. levoFLOXaci 2022-0 Yes [id number] 750mg Take 1 [facility] n 750 mg 9-06 tablet by [facility] of tablet 00:00: mouth [place] 00 every 24 Medical (twenty-fo Branch ur) hours. levoFLOXaci 2022-0 Yes [id number] 750mg Take 1 [facility] n 750 mg 9-06 tablet by [facility] of tablet 00:00: mouth [place] 00 every 24 Medical (twenty-fo Branch ur) hours. levoFLOXaci 2022-0 Yes [id number] 750mg Take 1 [facility] n 750 mg 9-06 tablet by [facility] of tablet 00:00: mouth [place] 00 every 24 Medical (twenty-fo Branch ur) hours. levoFLOXaci 2022-0 Yes [id number] 750mg Take 1 [facility] n 750 mg 9-06 tablet by [facility] of tablet 00:00: mouth [place] 00 every 24 Medical (twenty-fo Branch ur) hours. levoFLOXaci 2022-0 Yes [id number] 750mg Take 1 [facility] n 750 mg 9-06 tablet by [facility] of tablet 00:00: mouth [place] 00 every 24 Medical (twenty-fo Branch ur) hours. levoFLOXaci 2022-0 Yes [id number] 750mg Take 1 [facility] n 750 mg 9-06 tablet by [facility] of tablet 00:00: mouth [place] 00 every 24 Medical (twenty-fo Branch ur) hours. levoFLOXaci 2022-0 Yes [id number] 750mg Take 1 [facility] n 750 mg 9-06 tablet by [facility] of tablet 00:00: mouth [place] 00 every 24 Medical (twenty-fo Branch ur) hours. levoFLOXaci 2022-0 Yes [id number] 750mg Take 1 [facility] n 750 mg 9-06 tablet by [facility] of tablet 00:00: mouth [place] 00 every 24 Medical (twenty-fo Branch ur) hours. levoFLOXaci 2-0 Yes [id number] 750mg Take 1 [facility] n 750 mg 9-06 tablet by [facility] of tablet 00:00: mouth [place] 00 every 24 Medical (twenty-fo Branch ur) hours. levoFLOXaci 2-0 Yes [id number] 750mg Take 1 [facility] n 750 mg 9-06 tablet by [facility] of tablet 00:00: mouth [place] 00 every 24 Medical (twenty-fo Branch ur) hours. levoFLOXaci 2022-0 Yes [id number] 750mg Take 1 [facility] n 750 mg 9-06 tablet by [facility] of tablet 00:00: mouth [place] 00 every 24 Medical (twenty-fo Branch ur) hours. amoxicillin 2021-0 Yes [id number] 1{tbl} Take 1 [facility] -clavulanat 8-19 tablet by ity of e 00:00: mouth in [place] (AUGMENTIN) 00 the Medical 875-125 mg morning Branch per tablet and 1 tablet in the evening. phenazopyri 2022-0 Yes [id number] 200mg Take 1 [facility] dine 8-19 tablet by [facility] of (PYRIDIUM) 00:00: mouth in [facility] as 200 mg 00 the Medical tablet morning Branch and 1 tablet at noon and 1 tablet in the evening. Take after meals. amoxicillin 2-0 Yes [id number] 1{tbl} Take 1 [facility] -clavulanat 8-19 tablet by ity of e 00:00: mouth in [place] (AUGMENTIN) 00 the Medical 875-125 mg morning Branch per tablet and 1 tablet in the evening. phenazopyri 2021-0 Yes [id number] 200mg Take 1 [facility] dine 8-19 tablet by ity of (PYRIDIUM) 00:00: mouth in [place] as 200 mg 00 the Medical tablet morning Branch and 1 tablet at noon and 1 tablet in the evening. Take after meals. amoxicillin 2021-0 Yes 1{tbl} Take 1 [facility] -clavulanat 8-19 tablet by ity of e 00:00: mouth in [place] (AUGMENTIN) 00 the Medical 875-125 mg morning Branch per tablet and 1 tablet in the evening. phenazopyri 2021-0 Yes [id number] 200mg Take 1 [facility] dine 8-19 tablet by ity of (PYRIDIUM) 00:00: mouth in [place] as 200 mg 00 the Medical tablet morning Branch and 1 tablet at noon and 1 tablet in the evening. Take after meals. amoxicillin 2021-0 Yes 1{tbl} Take 1 [facility] -clavulanat 8-19 tablet by ity of e 00:00: mouth in [place] (AUGMENTIN) 00 the Medical 875-125 mg morning Branch per tablet and 1 tablet in the evening. phenazopyri 2021-0 Yes [id number] 200mg Take 1 [facility] dine 8-19 tablet by ity of (PYRIDIUM) 00:00: mouth in [place] as 200 mg 00 the Medical tablet morning Branch and 1 tablet at noon and 1 tablet in the evening. Take after meals. amoxicillin 2021-0 Yes 1{tbl} Take 1 [facility] -clavulanat 8-19 tablet by ity of e 00:00: mouth in [place] (AUGMENTIN) 00 the Medical 875-125 mg morning Branch per tablet and 1 tablet in the evening. phenazopyri 2021-0 Yes [id number] 200mg Take 1 [facility] dine 8-19 tablet by ity of (PYRIDIUM) 00:00: mouth in [place] as 200 mg 00 the Medical tablet morning Branch and 1 tablet at noon and 1 tablet in the evening. Take after meals. amoxicillin 2021-0 Yes 1{tbl} Take 1 [facility] -clavulanat 8-19 tablet by ity of e 00:00: mouth in [place] (AUGMENTIN) 00 the Medical 875-125 mg morning Branch per tablet and 1 tablet in the evening. phenazopyri 2021-0 Yes [id number] 200mg Take 1 [facility] dine 8-19 tablet by ity of (PYRIDIUM) 00:00: mouth in [place] as 200 mg 00 the Medical tablet morning Branch and 1 tablet at noon and 1 tablet in the evening. Take after meals. amoxicillin 2021-0 Yes 1{tbl} Take 1 [facility] -clavulanat 8-19 tablet by ity of e 00:00: mouth in [place] (AUGMENTIN) 00 the Medical 875-125 mg morning Branch per tablet and 1 tablet in the evening. amoxicillin 2021-0 Yes 1{tbl} Take 1 [facility] -clavulanat 8-19 tablet by ity of e 00:00: mouth in [place] (AUGMENTIN) 00 the Medical 875-125 mg morning Branch per tablet and 1 tablet in the evening. amoxicillin 2021-0 Yes 1{tbl} Take 1 [facility] -clavulanat 8-19 tablet by ity of e 00:00: mouth in [place] (AUGMENTIN) 00 the Medical 875-125 mg morning Branch per tablet and 1 tablet in the evening. amoxicillin 2021-0 Yes 1{tbl} Take 1 [facility] -clavulanat 8-19 tablet by ity of e 00:00: mouth in [place] (AUGMENTIN) 00 the Medical 875-125 mg morning Branch per tablet and 1 tablet in the evening. amoxicillin 2021-0 Yes 1{tbl} Take 1 [facility] -clavulanat 8-19 tablet by ity of e 00:00: mouth in [place] (AUGMENTIN) 00 the Medical 875-125 mg morning Branch per tablet and 1 tablet in the evening. amoxicillin 2021-0 Yes 1{tbl} Take 1 [facility] -clavulanat 8-19 tablet by ity of e 00:00: mouth in [place] (AUGMENTIN) 00 the Medical 875-125 mg morning Branch per tablet and 1 tablet in the evening. amoxicillin 2021-0 Yes 1{tbl} Take 1 [facility] -clavulanat 8-19 tablet by ity of e 00:00: mouth in [place] (AUGMENTIN) 00 the Medical 875-125 mg morning Branch per tablet and 1 tablet in the evening. amoxicillin 2021-0 Yes 1{tbl} Take 1 [facility] -clavulanat 8-19 tablet by ity of e 00:00: mouth in [place] (AUGMENTIN) 00 the Medical 875-125 mg morning Branch per tablet and 1 tablet in the evening. amoxicillin 2021-0 Yes 1{tbl} Take 1 [facility] -clavulanat 8-19 tablet by ity of e 00:00: mouth in [place] (AUGMENTIN) 00 the Medical 875-125 mg morning Branch per tablet and 1 tablet in the evening. amoxicillin 2021-0 Yes 1{tbl} Take 1 [facility] -clavulanat 8-19 tablet by ity of e 00:00: mouth in [place] (AUGMENTIN) 00 the Medical 875-125 mg morning Branch per tablet and 1 tablet in the evening. amoxicillin 2021-0 Yes 1{tbl} Take 1 [facility] -clavulanat 8-19 tablet by ity of e 00:00: mouth in [place] (AUGMENTIN) 00 the Medical 875-125 mg morning Branch per tablet and 1 tablet in the evening. amoxicillin 2021-0 Yes 1{tbl} Take 1 [facility] -clavulanat 8-19 tablet by ity of e 00:00: mouth in [place] (AUGMENTIN) 00 the Medical 875-125 mg morning Branch per tablet and 1 tablet in the evening. amoxicillin 2021-0 Yes 1{tbl} Take 1 [facility] -clavulanat 8-19 tablet by ity of e 00:00: mouth in [place] (AUGMENTIN) 00 the Medical 875-125 mg morning Branch per tablet and 1 tablet in the evening. amoxicillin 2021-0 Yes 1{tbl} Take 1 [facility] -clavulanat 8-19 tablet by ity of e 00:00: mouth in [place] (AUGMENTIN) 00 the Medical 875-125 mg morning Branch per tablet and 1 tablet in the evening. amoxicillin 2021-0 Yes 1{tbl} Take 1 [facility] -clavulanat 8-19 tablet by ity of e 00:00: mouth in [place] (AUGMENTIN) 00 the Medical 875-125 mg morning Branch per tablet and 1 tablet in the evening. amoxicillin 2021-0 Yes 1{tbl} Take 1 [facility] -clavulanat 8-19 tablet by ity of e 00:00: mouth in [place] (AUGMENTIN) 00 the Medical 875-125 mg morning Branch per tablet and 1 tablet in the evening. amoxicillin 2021-0 Yes [id number] 1{tbl} Take 1 [facility] -clavulanat 8-19 tablet by ity of e 00:00: mouth in [place] (AUGMENTIN) 00 the Medical 875-125 mg morning Branch per tablet and 1 tablet in the evening. amoxicillin 2021-0 Yes 1{tbl} Take 1 [facility] -clavulanat 8-19 tablet by ity of e 00:00: mouth in [place] (AUGMENTIN) 00 the Medical 875-125 mg morning Branch per tablet and 1 tablet in the evening. amoxicillin 2021-0 Yes 1{tbl} Take 1 [facility] -clavulanat 8-19 tablet by ity of e 00:00: mouth in [place] (AUGMENTIN) 00 the Medical 875-125 mg morning Branch per tablet and 1 tablet in the evening. amoxicillin Yes 1{tbl} Take 1 [facility] -clavulanat 8-19 tablet by ity of e 00:00: mouth in [place] (AUGMENTIN) 00 the Medical 875-125 mg morning Branch per tablet and 1 tablet in the evening. amoxicillin 2021- No [id number] 1{tbl} Take 1 [facility] -clavulanat 8-19 12-27 tablet by it y of e 00:00: 00:00 mouth in [place] (AUGMENTIN) 00 :00 the Medical 875-125 mg morning Branch per tablet and 1 tablet in the evening. phenazopyri 2021-0 2021- No [id number] 200mg Take 1 [facility] dine 8-19 09-08 tablet by ity of (PYRIDIUM) 00:00: 00:00 mouth in [place] 200 mg 00 :00 the Medical tablet morning Branch and 1 tablet at noon and 1 tablet in the evening. Take after meals. estradioL 2021-0 Yes [id number] .5mg Take 1 U nivers 0.5 mg 7-07 tablet by ity of tablet 00:00: mouth [place] 00 daily. Medical Branch medroxyPROG 2021-0 Yes [id number] 2.5mg Take 1 [facility] ESTERone 7-07 tablet by ity of 2.5 mg 00:00: mouth [place] tablet 00 daily. [facility] estradioL 2022-0 Yes [id number] .5mg Take 1 U nivers 0.5 mg 7-07 tablet by ity of tablet 00:00: mouth [place] 00 daily. [facility] Branch medroxyPROG 2-0 Yes [id number] 2.5mg Take 1 [facility] ESTERone 7-07 tablet by ity of 2.5 mg 00:00: mouth [place] tablet 00 daily. [facility] Branch estradioL 2-0 Yes [id number] .5mg Take 1 U nivers 0.5 mg 7-07 tablet by ity of tablet 00:00: mouth [place] 00 daily. [facility] medroxyPROG 2-0 Yes [id number] 2.5mg Take 1 [facility] ESTERone 7-07 tablet by ity of 2.5 mg 00:00: mouth [place] tablet 00 daily. [facility] estradioL 2-0 Yes [id number] .5mg Take 1 U nivers 0.5 mg 7-07 tablet by ity of tablet 00:00: mouth [place] 00 daily. [facility] medroxyPROG 2-0 Yes [id number] 2.5mg Take 1 [facility] ESTERone 7-07 tablet by ity of 2.5 mg 00:00: mouth [place] tablet 00 daily. [facility] estradioL 2-0 Yes [id number] .5mg Take 1 U nivers 0.5 mg 7-07 tablet by ity of tablet 00:00: mouth [place] 00 daily. [facility] medroxyPROG 2-0 Yes [id number] 2.5mg Take 1 [facility] ESTERone 7-07 tablet by ity of 2.5 mg 00:00: mouth [place] tablet 00 daily. [facility] estradioL 2-0 Yes [id number] .5mg Take 1 U nivers 0.5 mg 7-07 tablet by ity of tablet 00:00: mouth [place] 00 daily. [facility] medroxyPROG 2022-0 Yes [id number] 2.5mg Take 1 [facility] ESTERone 7-07 tablet by ity of 2.5 mg 00:00: mouth [place] tablet 00 daily. [facility] estradioL 2022-0 Yes [id number] .5mg Take 1 U nivers 0.5 mg 7-07 tablet by ity of tablet 00:00: mouth [place] 00 daily. [facility] medroxyPROG 2022-0 Yes [id number] 2.5mg Take 1 [facility] ESTERone 7-07 tablet by ity of 2.5 mg 00:00: mouth [place] tablet 00 daily. [facility] estradioL 2-0 Yes [id number] .5mg Take 1 U nivers 0.5 mg 7-07 tablet by ity of tablet 00:00: mouth [place] 00 daily. [facility] medroxyPROG 2-0 Yes [id number] 2.5mg Take 1 [facility] ESTERone 7-07 tablet by ity of 2.5 mg 00:00: mouth [place] tablet 00 daily. [facility] estradioL 2-0 Yes [id number] .5mg Take 1 U nivers 0.5 mg 7-07 tablet by ity of tablet 00:00: mouth [place] 00 daily. [facility] medroxyPROG 2021-0 Yes [id number] 2.5mg Take 1 [facility] ESTERone 7-07 tablet by ity of 2.5 mg 00:00: mouth [place] tablet 00 daily. [facility] estradioL 2021-0 Yes [id number] .5mg Take 1 U nivers 0.5 mg 7-07 tablet by ity of tablet 00:00: mouth [place] 00 daily. [facility] medroxyPROG 2021-0 Yes [id number] 2.5mg Take 1 [facility] ESTERone 7-07 tablet by ity of 2.5 mg 00:00: mouth [place] tablet 00 daily. [facility] estradioL 2-0 Yes [id number] .5mg Take 1 U nivers 0.5 mg 7-07 tablet by ity of tablet 00:00: mouth [place] 00 daily. [facility] medroxyPROG 2-0 Yes [id number] 2.5mg Take 1 [facility] ESTERone 7-07 tablet by ity of 2.5 mg 00:00: mouth [place] tablet 00 daily. [facility] estradioL 2022-0 Yes [id number] .5mg Take 1 U nivers 0.5 mg 7-07 tablet by ity of tablet 00:00: mouth [place] 00 daily. [facility] medroxyPROG 2-0 Yes [id number] 2.5mg Take 1 [facility] ESTERone 7-07 tablet by ity of 2.5 mg 00:00: mouth [place] tablet 00 daily. [facility] estradioL 2-0 Yes [id number] .5mg Take 1 U nivers 0.5 mg 7-07 tablet by ity of tablet 00:00: mouth [place] 00 daily. [facility] medroxyPROG 2022-0 Yes [id number] 2.5mg Take 1 [facility] ESTERone 7-07 tablet by ity of 2.5 mg 00:00: mouth [place] tablet 00 daily. [facility] estradioL 2022-0 Yes [id number] .5mg Take 1 U nivers 0.5 mg 7-07 tablet by ity of tablet 00:00: mouth [place] 00 daily. [facility] medroxyPROG 2022-0 Yes [id number] 2.5mg Take 1 [facility] ESTERone 7-07 tablet by ity of 2.5 mg 00:00: mouth [place] tablet 00 daily. [facility] estradioL 2-0 Yes [id number] .5mg Take 1 U nivers 0.5 mg 7-07 tablet by ity of tablet 00:00: mouth [place] 00 daily. [facility] medroxyPROG 2-0 Yes [id number] 2.5mg Take 1 [facility] ESTERone 7-07 tablet by ity of 2.5 mg 00:00: mouth [place] tablet 00 daily. [facility] estradioL 2-0 Yes [id number] .5mg Take 1 U nivers 0.5 mg 7-07 tablet by ity of tablet 00:00: mouth [place] 00 daily. [facility] medroxyPROG 2-0 Yes [id number] 2.5mg Take 1 [facility] ESTERone 7-07 tablet by ity of 2.5 mg 00:00: mouth [place] tablet 00 daily. [facility] estradioL 2022-0 Yes [id number] .5mg Take 1 U nivers 0.5 mg 7-07 tablet by ity of tablet 00:00: mouth [place] 00 daily. [facility] medroxyPROG 2022-0 Yes [id number] 2.5mg Take 1 [facility] ESTERone 7-07 tablet by ity of 2.5 mg 00:00: mouth [place] tablet 00 daily. [facility] estradioL 2022-0 Yes [id number] .5mg Take 1 U nivers 0.5 mg 7-07 tablet by ity of tablet 00:00: mouth [place] 00 daily. [facility] medroxyPROG 2022-0 Yes [id number] 2.5mg Take 1 [facility] ESTERone 7-07 tablet by ity of 2.5 mg 00:00: mouth [place] tablet 00 daily. [facility] estradioL 2022-0 Yes [id number] .5mg Take 1 U nivers 0.5 mg 7-07 tablet by ity of tablet 00:00: mouth [place] 00 daily. [facility] medroxyPROG 2022-0 Yes [id number] 2.5mg Take 1 [facility] ESTERone 7-07 tablet by ity of 2.5 mg 00:00: mouth [place] tablet 00 daily. [facility] estradioL 2022-0 Yes [id number] .5mg Take 1 U nivers 0.5 mg 7-07 tablet by ity of tablet 00:00: mouth [place] 00 daily. [facility] medroxyPROG 2-0 Yes [id number] 2.5mg Take 1 [facility] ESTERone 7-07 tablet by ity of 2.5 mg 00:00: mouth [place] tablet 00 daily. [facility] estradioL 2-0 Yes [id number] .5mg Take 1 U nivers 0.5 mg 7-07 tablet by ity of tablet 00:00: mouth [place] 00 daily. [facility] medroxyPROG 2-0 Yes [id number] 2.5mg Take 1 [facility] ESTERone 7-07 tablet by ity of 2.5 mg 00:00: mouth [place] tablet 00 daily. [facility] estradioL 2-0 Yes [id number] .5mg Take 1 U nivers 0.5 mg 7-07 tablet by ity of tablet 00:00: mouth [place] 00 daily. [facility] medroxyPROG 2-0 Yes [id number] 2.5mg Take 1 [facility] ESTERone 7-07 tablet by ity of 2.5 mg 00:00: mouth [place] tablet 00 daily. [facility] estradioL 2022-0 Yes [id number] .5mg Take 1 U nivers 0.5 mg 7-07 tablet by ity of tablet 00:00: mouth [place] 00 daily. [facility] medroxyPROG 2022-0 Yes [id number] 2.5mg Take 1 [facility] ESTERone 7-07 tablet by ity of 2.5 mg 00:00: mouth [place] tablet 00 daily. [facility] estradioL 2022-0 Yes [id number] .5mg Take 1 U nivers 0.5 mg 7-07 tablet by ity of tablet 00:00: mouth [place] 00 daily. [facility] medroxyPROG 2022-0 Yes [id number] 2.5mg Take 1 [facility] ESTERone 7-07 tablet by ity of 2.5 mg 00:00: mouth [place] tablet 00 daily. [facility] estradioL 2021-0 Yes [id number] .5mg Take 1 U nivers 0.5 mg 7-07 tablet by ity of tablet 00:00: mouth [place] 00 daily. [facility] medroxyPROG 2021-0 Yes [id number] 2.5mg Take 1 [facility] ESTERone 7-07 tablet by ity of 2.5 mg 00:00: mouth [place] tablet 00 daily. [facility] estradioL 2021-0 Yes [id number] .5mg Take 1 U nivers 0.5 mg 7-07 tablet by ity of tablet 00:00: mouth [place] 00 daily. [facility] medroxyPROG 2021-0 Yes [id number] 2.5mg Take 1 [facility] ESTERone 7-07 tablet by ity of 2.5 mg 00:00: mouth [place] tablet 00 daily. [facility] estradioL 2021-0 Yes [id number] .5mg Take 1 U nivers 0.5 mg 7-07 tablet by ity of tablet 00:00: mouth [place] 00 daily. [facility] medroxyPROG 2021-0 Yes [id number] 2.5mg Take 1 [facility] ESTERone 7-07 tablet by ity of 2.5 mg 00:00: mouth [place] tablet 00 daily. [facility] estradioL 2021-0 Yes [id number] .5mg Take 1 U nivers 0.5 mg 7-07 tablet by ity of tablet 00:00: mouth [place] 00 daily. [facility] medroxyPROG 2021-0 Yes [id number] 2.5mg Take 1 [facility] ESTERone 7-07 tablet by ity of 2.5 mg 00:00: mouth [place] tablet 00 daily. [facility] estradioL 2-0 Yes [id number] .5mg Take 1 U nivers 0.5 mg 7-07 tablet by ity of tablet 00:00: mouth [place] 00 daily. [facility] medroxyPROG 2-0 Yes [id number] 2.5mg Take 1 [facility] ESTERone 7-07 tablet by ity of 2.5 mg 00:00: mouth [place] tablet 00 daily. [facility] estradioL 2-0 Yes [id number] .5mg Take 1 U nivers 0.5 mg 7-07 tablet by ity of tablet 00:00: mouth [place] 00 daily. [facility] medroxyPROG 2021-0 Yes [id number] 2.5mg Take 1 [facility] ESTERone 7-07 tablet by ity of 2.5 mg 00:00: mouth [place] tablet 00 daily. [facility] metoprolol 2021-0 Yes [id number] 100mg Take 1 [facility] tartrate 6-15 tablet by ity of 100 mg 00:00: mouth 2 [place] tablet 00 (two) Medical times Branch daily. Fenofibrate 2021-0 Yes [id number] 160mg Take 1 [facility] 160 mg 6-15 tablet by ity of tablet 00:00: mouth [place] 00 daily. [facility], 0 Yes [id number] 2g Take 2 Uni vers omega-3-aci 6-15 capsules ity of d ethyl 00:00: [place] mouth [place] esters, 1 00 (two) Medical gram times Branch capsule daily with meals. Add one capsule at lunch metoprolol 2021-0 Yes [id number] 100mg Take 1 [facility] tartrate 6-15 tablet by ity of 100 mg 00:00: mouth 2 [place] tablet 00 (two) Medical times Branch daily. Fenofibrate 2021-0 Yes [id number] 160mg Take 1 [facility] 160 mg 6-15 tablet by ity of tablet 00:00: mouth [place] 00 daily. [facility], 0 Yes [id number] 2g Take 2 [facility] vers omega-3-aci 6-15 capsules ity of d ethyl 00:00: by mouth 2 [place] esters, 1 00 (two) Medical gram times Branch capsule daily with meals. Add one capsule at lunch metoprolol 2021-0 Yes [id number] 100mg Take 1 [facility] tartrate 6-15 tablet by ity of 100 mg 00:00: mouth 2 [place] tablet 00 (two) Medical times Branch daily. Fenofibrate 2021-0 Yes [id number] 160mg Take 1 [facility] 160 mg 6-15 tablet by ity of tablet 00:00: mouth [place] 00 daily. [facility], 0 Yes [id number] 2g Take 2 [facility] vers omega-3-aci 6-15 capsules ity of d ethyl 00:00: by mouth 2 [place] esters, 1 00 (two) Medical gram times Branch capsule daily with meals. Add one capsule at lunch metoprolol 2021-0 Yes [id number] 100mg Take 1 [facility] tartrate 6-15 tablet by ity of 100 mg 00:00: mouth 2 [place] tablet 00 (two) Medical times Branch daily. Fenofibrate 2021-0 Yes [id number] 160mg Take 1 [facility] 160 mg 6-15 tablet by ity of tablet 00:00: mouth [place] 00 daily. [facility], 0 Yes [id number] 2g Take 2 [facility] vers omega-3-aci 6-15 capsules ity of d ethyl 00:00: by mouth 2 [place] esters, 1 00 (two) Medical gram times Branch capsule daily with meals. Add one capsule at lunch metoprolol 2021-0 Yes [id number] 100mg Take 1 [facility] tartrate 6-15 tablet by ity of 100 mg 00:00: mouth 2 [place] tablet 00 (two) Medical times Branch daily. Fenofibrate 2021-0 Yes [id number] 160mg Take 1 [facility] 160 mg 6-15 tablet by ity of tablet 00:00: mouth [place] 00 daily. [facility], Yes [id number] 2g Take 2 [facility] vers omega-3-aci 6-15 capsules ity of d ethyl 00:00: by mouth 2 [place] esters, 1 00 (two) Medical gram times Branch capsule daily with meals. Add one capsule at lunch metoprolol 2021-0 Yes [id number] 100mg Take 1 [facility] tartrate 6-15 tablet by ity of 100 mg 00:00: mouth 2 [place] tablet 00 (two) Medical times Branch daily. Fenofibrate 2021-0 Yes [id number] 160mg Take 1 [facility] 160 mg 6-15 tablet by ity of tablet 00:00: mouth [place] 00 daily. [facility], 0 Yes [id number] 2g Take 2 [facility] vers omega-3-aci 6-15 capsules ity of d ethyl 00:00: by mouth 2 [place] esters, 1 00 (two) Medical gram times Branch capsule daily with meals. Add one capsule at lunch metoprolol 2021-0 Yes [id number] 100mg Take 1 [facility] tartrate 6-15 tablet by ity of 100 mg 00:00: mouth 2 [place] tablet 00 (two) Medical times Branch daily. Fenofibrate Yes [id number] 160mg Take 1 [facility] 160 mg 6-15 tablet by ity of tablet 00:00: mouth [place] 00 daily. [facility], Yes [id number] 2g Take 2 [facility] vers omega-3-aci 6-15 capsules ity of d ethyl 00:00: by mouth 2 [place] esters, 1 00 (two) Medical gram times Branch capsule daily with meals. Add one capsule at lunch metoprolol Yes [id number] 100mg Take 1 [facility] tartrate 6-15 tablet by ity of 100 mg 00:00: mouth 2 [place] tablet 00 (two) Medical times Branch daily. Fenofibrate Yes [id number] 160mg Take 1 [facility] 160 mg 6-15 tablet by ity of tablet 00:00: mouth [place] 00 daily. [facility], Yes [id number] 2g Take 2 [facility] vers omega-3-aci 6-15 capsules ity of d ethyl 00:00: by mouth 2 [place] esters, 1 00 (two) Medical gram times Branch capsule daily with meals. Add one capsule at lunch metoprolol Yes [id number] 100mg Take 1 [facility] tartrate 6-15 tablet by ity of 100 mg 00:00: mouth 2 [place] tablet 00 (two) Medical times Branch daily. Fenofibrate Yes [id number] 160mg Take 1 [facility] 160 mg 6-15 tablet by ity of tablet 00:00: mouth [place] 00 daily. [facility], Yes [id number] 2g Take 2 [facility] vers omega-3-aci 6-15 capsules ity of d ethyl 00:00: by mouth 2 [place] esters, 1 00 (two) Medical gram times Branch capsule daily with meals. Add one capsule at lunch metoprolol Yes [id number] 100mg Take 1 [facility] tartrate 6-15 tablet by ity of 100 mg 00:00: mouth 2 [place] tablet 00 (two) Medical times Branch daily. Fenofibrate Yes [id number] 160mg Take 1 [facility] 160 mg 6-15 tablet by ity of tablet 00:00: mouth [place] 00 daily. [facility], Yes [id number] 2g Take 2 [facility] vers omega-3-aci 6-15 capsules ity of d ethyl 00:00: by mouth 2 [place] esters, 1 00 (two) Medical gram times Branch capsule daily with meals. Add one capsule at lunch metoprolol 2021-0 Yes [id number] 100mg Take 1 [facility] tartrate 6-15 tablet by ity of 100 mg 00:00: mouth 2 [place] tablet 00 (two) Medical times Branch daily. Fenofibrate 2021-0 Yes [id number] 160mg Take 1 [facility] 160 mg 6-15 tablet by ity of tablet 00:00: mouth [place] 00 daily. [facility], 0 Yes [id number] 2g Take 2 [facility] vers omega-3-aci 6-15 capsules ity of d ethyl 00:00: by mouth 2 [place] esters, 1 00 (two) Medical gram times Branch capsule daily with meals. Add one capsule at lunch metoprolol 2021-0 Yes [id number] 100mg Take 1 [facility] tartrate 6-15 tablet by ity of 100 mg 00:00: mouth 2 [place] tablet 00 (two) Medical times Branch daily. Fenofibrate 0 Yes [id number] 160mg Take 1 [facility] 160 mg 6-15 tablet by ity of tablet 00:00: mouth [place] 00 daily. [facility], 0 Yes [id number] 2g Take 2 [facility] vers omega-3-aci 6-15 capsules ity of d ethyl 00:00: by mouth 2 [place] esters, 1 00 (two) Medical gram times Branch capsule daily with meals. Add one capsule at lunch metoprolol 2021-0 Yes [id number] 100mg Take 1 [facility] tartrate 6-15 tablet by ity of 100 mg 00:00: mouth 2 [place] tablet 00 (two) Medical times Branch daily. Fenofibrate 2021-0 Yes [id number] 160mg Take 1 [facility] 160 mg 6-15 tablet by ity of tablet 00:00: mouth [place] 00 daily. [facility], 0 Yes [id number] 2g Take 2 [facility] vers omega-3-aci 6-15 capsules ity of d ethyl 00:00: by mouth 2 [place] esters, 1 00 (two) Medical gram times Branch capsule daily with meals. Add one capsule at lunch metoprolol 2021-0 Yes [id number] 100mg Take 1 [facility] tartrate 6-15 tablet by ity of 100 mg 00:00: mouth 2 [place] tablet 00 (two) Medical times Branch daily. Fenofibrate 2021-0 Yes [id number] 160mg Take 1 [facility] 160 mg 6-15 tablet by ity of tablet 00:00: mouth [place] 00 daily. [facility], 2021-0 Yes [id number] 2g Take 2 [facility] vers omega-3-aci 6-15 capsules ity of d ethyl 00:00: by mouth 2 [place] esters, 1 00 (two) Medical gram times Branch capsule daily with meals. Add one capsule at lunch metoprolol 2021-0 Yes [id number] 100mg Take 1 [facility] tartrate 6-15 tablet by ity of 100 mg 00:00: mouth 2 [place] tablet 00 (two) Medical times Branch daily. Fenofibrate 2021-0 Yes [id number] 160mg Take 1 [facility] 160 mg 6-15 tablet by ity of tablet 00:00: mouth [place] 00 daily. [facility], 0 Yes [id number] 2g Take 2 [facility] vers omega-3-aci 6-15 capsules ity of d ethyl 00:00: by mouth 2 [place] esters, 1 00 (two) Medical gram times Branch capsule daily with meals. Add one capsule at lunch metoprolol 2021-0 Yes [id number] 100mg Take 1 [facility] tartrate 6-15 tablet by ity of 100 mg 00:00: mouth 2 [place] tablet 00 (two) Medical times Branch daily. Fenofibrate 2021-0 Yes [id number] 160mg Take 1 [facility] 160 mg 6-15 tablet by ity of tablet 00:00: mouth [place] 00 daily. [facility], 0 Yes [id number] 2g Take 2 [facility] vers omega-3-aci 6-15 capsules ity of d ethyl 00:00: by mouth 2 [place] esters, 1 00 (two) Medical gram times Branch capsule daily with meals. Add one capsule at lunch metoprolol 2021-0 Yes [id number] 100mg Take 1 [facility] tartrate 6-15 tablet by ity of 100 mg 00:00: mouth 2 [place] tablet 00 (two) Medical times Branch daily. Fenofibrate 2021-0 Yes [id number] 160mg Take 1 [facility] 160 mg 6-15 tablet by ity of tablet 00:00: mouth [place] 00 daily. Medical Branch LOVAZA, 2021-0 Yes [id number] 2g Take 2 [facility] vers omega-3-aci 6-15 capsules ity of d ethyl 00:00: by mouth 2 [place] esters, 1 00 (two) Medical gram times Branch capsule daily with meals. Add one capsule at lunch Fenofibrate 2021-0 Yes [id number] 160mg Take 1 [facility] 160 mg 6-15 tablet by ity of tablet 00:00: mouth [place] 00 daily. Medical Branch Fenofibrate 2021-0 Yes [id number] 160mg Take 1 [facility] 160 mg 6-15 tablet by ity of tablet 00:00: mouth [place] 00 daily. Medical Branch Fenofibrate 2021-0 Yes [id number] 160mg Take 1 [facility] 160 mg 6-15 tablet by ity of tablet 00:00: mouth [place] 00 daily. Medical Branch Fenofibrate 2021-0 Yes [id number] 160mg Take 1 [facility] 160 mg 6-15 tablet by ity of tablet 00:00: mouth [place] 00 daily. Medical Branch Fenofibrate 2021-0 Yes [id number] 160mg Take 1 [facility] 160 mg 6-15 tablet by ity of tablet 00:00: mouth [place] 00 daily. Medical Branch Fenofibrate 2021-0 Yes [id number] 160mg Take 1 [facility] 160 mg 6-15 tablet by ity of tablet 00:00: mouth [place] 00 daily. Medical Branch Fenofibrate 2021-0 Yes [id number] 160mg Take 1 [facility] 160 mg 6-15 tablet by ity of tablet 00:00: mouth [place] 00 daily. Medical Branch Fenofibrate 2021-0 Yes [id number] 160mg Take 1 [facility] 160 mg 6-15 tablet by ity of tablet 00:00: mouth [place] 00 daily. Medical Branch Fenofibrate 2021-0 Yes [id number] 160mg Take 1 [facility] 160 mg 6-15 tablet by ity of tablet 00:00: mouth [place] 00 daily. Medical Branch Fenofibrate 2021-0 Yes [id number] 160mg Take 1 [facility] 160 mg 6-15 tablet by ity of tablet 00:00: mouth [place] 00 daily. Medical Branch Fenofibrate 2021-0 Yes [id number] 160mg Take 1 [facility] 160 mg 6-15 tablet by ity of tablet 00:00: mouth [place] 00 daily. Medical Branch Fenofibrate Yes [id number] 160mg Take 1 [facility] 160 mg 6-15 tablet by ity of tablet 00:00: mouth [place] 00 daily. Medical Branch Fenofibrate Yes [id number] 160mg Take 1 [facility] 160 mg 6-15 tablet by ity of tablet 00:00: mouth [place] 00 daily. Medical Branch metoprolol 2021- No [id number] 100mg Take 1 [facility] tartrate 6-15 10-20 tablet by ity o f 100 mg 00:00: 00:00 mouth 2 [place] tablet 00 :00 (two) Medical times Branch daily. LOVAZA, 2021- No [id number] 2g Take 2 [facility] omega-3-aci 6-15 10-20 capsules ity of d ethyl 00:00: 00:00 by mouth 2 [place] esters, 1 00 :00 (two) Medical gram times Branch capsule daily with meals. Add one capsule at lunch LISINOPRIL- Yes [id number] Take 1 [facility] HYDROCHLORO 6-14 tablet by ity of THIAZIDE 00:00: mouth once [place] 20-25 mg 00 daily Medical per tablet Branch LISINOPRIL- 0 Yes [id number] Take 1 [facility] HYDROCHLORO 6-14 tablet by ity of THIAZIDE 00:00: mouth once [place] 20-25 mg 00 daily Medical per tablet Branch LISINOPRIL- 0 Yes [id number] Take 1 [facility] HYDROCHLORO 6-14 tablet by ity of THIAZIDE 00:00: mouth once [place] 20-25 mg 00 daily Medical per tablet Branch LISINOPRIL- 2021-0 Yes [id number] Take 1 [facility] HYDROCHLORO 6-14 tablet by ity of THIAZIDE 00:00: mouth once [place] 20-25 mg 00 daily Medical per tablet Branch LISINOPRIL- 0 Yes [id number] Take 1 [facility] HYDROCHLORO 6-14 tablet by ity of THIAZIDE 00:00: mouth once [place] 20-25 mg 00 daily Medical per tablet Branch LISINOPRIL- 0 Yes [id number] Take 1 [facility] HYDROCHLORO 6-14 tablet by ity of THIAZIDE 00:00: mouth once [place] 20-25 mg 00 daily Medical per tablet Branch LISINOPRIL- 2022-0 Yes [id number] Take 1 [facility] HYDROCHLORO 6-14 tablet by ity of THIAZIDE 00:00: mouth once [place] 20-25 mg 00 daily Medical per tablet Branch LISINOPRIL- 2021-0 Yes [id number] Take 1 [facility] HYDROCHLORO 6-14 tablet by ity of THIAZIDE 00:00: mouth once [place] 20-25 mg 00 daily Medical per tablet Branch LISINOPRIL- 2021-0 Yes [id number] Take 1 [facility] HYDROCHLORO 6-14 tablet by ity of THIAZIDE 00:00: mouth once [place] 20-25 mg 00 daily Medical per tablet Branch LISINOPRIL- 2021-0 Yes [id number] Take 1 [facility] HYDROCHLORO 6-14 tablet by ity of THIAZIDE 00:00: mouth once [place] 20-25 mg 00 daily Medical per tablet Branch LISINOPRIL- 0 Yes [id number] Take 1 [facility] HYDROCHLORO 6-14 tablet by ity of THIAZIDE 00:00: mouth once [place] 20-25 mg 00 daily Medical per tablet Branch LISINOPRIL- 0 Yes [id number] Take 1 [facility] HYDROCHLORO 6-14 tablet by ity of THIAZIDE 00:00: mouth once [place] 20-25 mg 00 daily Medical per tablet Branch LISINOPRIL- 2021-0 Yes [id number] Take 1 [facility] HYDROCHLORO 6-14 tablet by ity of THIAZIDE 00:00: mouth once [place] 20-25 mg 00 daily Medical per tablet Branch LISINOPRIL- 2021-0 Yes [id number] Take 1 [facility] HYDROCHLORO 6-14 tablet by ity of THIAZIDE 00:00: mouth once [place] 20-25 mg 00 daily Medical per tablet Branch LISINOPRIL- 2021-0 Yes [id number] Take 1 [facility] HYDROCHLORO 6-14 tablet by ity of THIAZIDE 00:00: mouth once [place] 20-25 mg 00 daily Medical per tablet Branch LISINOPRIL- 2021-0 Yes [id number] Take 1 [facility] HYDROCHLORO 6-14 tablet by ity of THIAZIDE 00:00: mouth once [place] 20-25 mg 00 daily Medical per tablet Branch LISINOPRIL- 2021-0 Yes [id number] Take 1 [facility] HYDROCHLORO 6-14 tablet by ity of THIAZIDE 00:00: mouth once [place] 20-25 mg 00 daily Medical per tablet Branch LISINOPRIL- 2021- No [id number] Take 1 [facility] HYDROCHLORO 6-14 10-20 tablet by it y of THIAZIDE 00:00: 00:00 mouth once [place] 20-25 mg 00 :00 daily Medical per tablet Branch ondansetron Yes [id number] 4mg Take 1 [facility] 4 mg 3-09 tablet by ity of disintegrat 00:00: mouth [place] ing tablet 00 every 8 Medica l (eight) Branch hours as needed for Nausea and Vomiting (N/V). ondansetron Yes [id number] 4mg Take 1 [facility] 4 mg 3-09 tablet by ity of disintegrat 00:00: mouth [place] ing tablet 00 every 8 Medica l (eight) Branch hours as needed for Nausea and Vomiting (N/V). ondansetron Yes [id number] 4mg Take 1 [facility] 4 mg 3-09 tablet by ity of disintegrat 00:00: mouth [place] ing tablet 00 every 8 Medica l (eight) Branch hours as needed for Nausea and Vomiting (N/V). ondansetron Yes [id number] 4mg Take 1 [facility] 4 mg 3-09 tablet by ity of disintegrat 00:00: mouth [place] ing tablet 00 every 8 Medica l (eight) Branch hours as needed for Nausea and Vomiting (N/V). ondansetron Yes [id number] 4mg Take 1 [facility] 4 mg 3-09 tablet by ity of disintegrat 00:00: mouth [place] ing tablet 00 every 8 Medica l (eight) Branch hours as needed for Nausea and Vomiting (N/V). ondansetron Yes [id number] 4mg Take 1 [facility] 4 mg 3-09 tablet by ity of disintegrat 00:00: mouth [place] ing tablet 00 every 8 Medica l (eight) Branch hours as needed for Nausea and Vomiting (N/V). ondansetron 2021-0 Yes [id number] 4mg Take 1 [facility] 4 mg 3-09 tablet by ity of disintegrat 00:00: mouth [place] ing tablet 00 every 8 Medica l (eight) Branch hours as needed for Nausea and Vomiting (N/V). ondansetron Yes [id number] 4mg Take 1 [facility] 4 mg 3-09 tablet by ity of disintegrat 00:00: mouth [place] ing tablet 00 every 8 Medica l (eight) Branch hours as needed for Nausea and Vomiting (N/V). ondansetron 2022-0 Yes [id number] 4mg Take 1 [facility] 4 mg 3-09 tablet by ity of disintegrat 00:00: mouth [place] ing tablet 00 every 8 Medica l (eight) Branch hours as needed for Nausea and Vomiting (N/V). ondansetron 2-0 Yes [id number] 4mg Take 1 [facility] 4 mg 3-09 tablet by ity of disintegrat 00:00: mouth [place] ing tablet 00 every 8 Medica l (eight) Branch hours as needed for Nausea and Vomiting (N/V). ondansetron 2-0 Yes [id number] 4mg Take 1 [facility] 4 mg 3-09 tablet by ity of disintegrat 00:00: mouth [place] ing tablet 00 every 8 Medica l (eight) Branch hours as needed for Nausea and Vomiting (N/V). ondansetron 2-0 Yes [id number] 4mg Take 1 [facility] 4 mg 3-09 tablet by ity of disintegrat 00:00: mouth [place] ing tablet 00 every 8 Medica l (eight) Branch hours as needed for Nausea and Vomiting (N/V). ondansetron 2-0 Yes [id number] 4mg Take 1 [facility] 4 mg 3-09 tablet by ity of disintegrat 00:00: mouth [place] ing tablet 00 every 8 Medica l (eight) Branch hours as needed for Nausea and Vomiting (N/V). ondansetron 2022-0 Yes [id number] 4mg Take 1 [facility] 4 mg 3-09 tablet by ity of disintegrat 00:00: mouth [place] ing tablet 00 every 8 Medica l (eight) Branch hours as needed for Nausea and Vomiting (N/V). ondansetron 2022-0 Yes [id number] 4mg Take 1 [facility] 4 mg 3-09 tablet by ity of disintegrat 00:00: mouth [place] ing tablet 00 every 8 Medica l (eight) Branch hours as needed for Nausea and Vomiting (N/V). ondansetron 2022-0 Yes [id number] 4mg Take 1 [facility] 4 mg 3-09 tablet by ity of disintegrat 00:00: mouth [place] ing tablet 00 every 8 Medica l (eight) Branch hours as needed for Nausea and Vomiting (N/V). ondansetron 2022-0 Yes [id number] 4mg Take 1 [facility] 4 mg 3-09 tablet by ity of disintegrat 00:00: mouth [place] ing tablet 00 every 8 Medica l (eight) Branch hours as needed for Nausea and Vomiting (N/V). ondansetron 2022-0 Yes [id number] 4mg Take 1 [facility] 4 mg 3-09 tablet by ity of disintegrat 00:00: mouth [place] ing tablet 00 every 8 Medica l (eight) Branch hours as needed for Nausea and Vomiting (N/V). ondansetron 2-0 Yes [id number] 4mg Take 1 [facility] 4 mg 3-09 tablet by ity of disintegrat 00:00: mouth [place] ing tablet 00 every 8 Medica l (eight) Branch hours as needed for Nausea and Vomiting (N/V). ondansetron 2-0 Yes [id number] 4mg Take 1 [facility] 4 mg 3-09 tablet by ity of disintegrat 00:00: mouth [place] ing tablet 00 every 8 Medica l (eight) Branch hours as needed for Nausea and Vomiting (N/V). ondansetron 2-0 Yes [id number] 4mg Take 1 [facility] 4 mg 3-09 tablet by ity of disintegrat 00:00: mouth [place] ing tablet 00 every 8 Medica l (eight) Branch hours as needed for Nausea and Vomiting (N/V). ondansetron 2-0 Yes [id number] 4mg Take 1 [facility] 4 mg 3-09 tablet by ity of disintegrat 00:00: mouth [place] ing tablet 00 every 8 Medica l (eight) Branch hours as needed for Nausea and Vomiting (N/V). ondansetron 2022-0 Yes [id number] 4mg Take 1 [facility] 4 mg 3-09 tablet by ity of disintegrat 00:00: mouth [place] ing tablet 00 every 8 Medica l (eight) Branch hours as needed for Nausea and Vomiting (N/V). ondansetron 2022-0 Yes [id number] 4mg Take 1 [facility] 4 mg 3-09 tablet by ity of disintegrat 00:00: mouth [place] ing tablet 00 every 8 Medica l (eight) Branch hours as needed for Nausea and Vomiting (N/V). ondansetron 2021-0 Yes [id number] 4mg Take 1 [facility] 4 mg 3-09 tablet by ity of disintegrat 00:00: mouth [place] ing tablet 00 every 8 Medica l (eight) Branch hours as needed for Nausea and Vomiting (N/V). ondansetron 2021-0 Yes [id number] 4mg Take 1 [facility] 4 mg 3-09 tablet by ity of disintegrat 00:00: mouth [place] ing tablet 00 every 8 Medica l (eight) Branch hours as needed for Nausea and Vomiting (N/V). ondansetron 2021-0 Yes [id number] 4mg Take 1 [facility] 4 mg 3-09 tablet by ity of disintegrat 00:00: mouth [place] ing tablet 00 every 8 Medica l (eight) Branch hours as needed for Nausea and Vomiting (N/V). ondansetron 2021-0 Yes [id number] 4mg Take 1 [facility] 4 mg 3-09 tablet by ity of disintegrat 00:00: mouth [place] ing tablet 00 every 8 Medica l (eight) Branch hours as needed for Nausea and Vomiting (N/V). ondansetron 0 Yes [id number] 4mg Take 1 [facility] 4 mg 3-09 tablet by ity of disintegrat 00:00: mouth [place] ing tablet 00 every 8 Medica l (eight) Branch hours as needed for Nausea and Vomiting (N/V). ondansetron 0 Yes [id number] 4mg Take 1 [facility] 4 mg 3-09 tablet by ity of disintegrat 00:00: mouth [place] ing tablet 00 every 8 Medica l (eight) Branch hours as needed for Nausea and Vomiting (N/V). ascorbic 2020-09 Yes Take by [employer] [facility] acid 0-27 mouth. ity of (VITAMIN C 13:33: [place] ORAL) Medical Branch ZINC ORAL 2020-09 Yes Take by Unive rs 0-27 mouth. ity of 13:33: [place] [address] Medical Branch Multivitami 2020-09 Yes Take by Uni vers ns with 0-27 mouth. ity of Fluoride 13:33: [place] (MULTI-MITZY 43 Medical MIN ORAL) Branch ascorbic 2020-09 Yes Take by Univer s acid 0-27 mouth. ity of (VITAMIN C 13:33: [place] ORAL) 43 Medical Branch ZINC ORAL 2020-09 Yes Take by Unive rs 0-27 mouth. ity of 13:33: [place] [address] Medical Branch Multivitami 2020-09 Yes Take by Uni vers ns with 0-27 mouth. ity of Fluoride 13:33: [place] (MULTI-MITZY 43 Medical MIN ORAL) Branch ascorbic 2020-09 Yes Take by Univer s acid 0-27 mouth. ity of (VITAMIN C 13:33: [place] ORAL) Medical Branch ZINC ORAL 2020-09 Yes Take by Unive rs 0-27 mouth. ity of 13:33: [place] [address] Medical Branch Multivitami 2020-09 Yes Take by Uni vers ns with 0-27 mouth. ity of Fluoride 13:33: [place] (MULTI-MITZY 43 Medical MIN ORAL) Branch ascorbic 2020-09 Yes Take by Univer s acid 0-27 mouth. ity of (VITAMIN C 13:33: [place] ORAL) Medical Branch ZINC ORAL 2020-09 Yes Take by Unive rs 0-27 mouth. ity of 13:33: [place] [address] Medical Branch Multivitami 2020-09 Yes Take by Uni vers ns with 0-27 mouth. ity of Fluoride 13:33: [place] (MULTI-MITZY 43 Medical MIN ORAL) Branch ascorbic 2020-09 Yes Take by Univer s acid 0-27 mouth. ity of (VITAMIN C 13:33: [place] ORAL) Medical Branch ZINC ORAL 2020-09 Yes Take by Unive rs 0-27 mouth. ity of 13:33: [place] [address] Medical Branch Multivitami 2020-09 Yes Take by Uni vers ns with 0-27 mouth. ity of Fluoride 13:33: [place] (MULTI-MITZY 43 Medical MIN ORAL) Branch ascorbic 2020-09 Yes Take by Univer s acid 0-27 mouth. ity of (VITAMIN C 13:33: [place] ORAL) Medical Branch ZINC ORAL 2020-09 Yes Take by Unive rs 0-27 mouth. ity of 13:33: [place] [address] Medical Branch Multivitami 2020-09 Yes Take by Uni vers ns with 0-27 mouth. ity of Fluoride 13:33: [place] (MULTI-MITZY 43 Medical MIN ORAL) Branch ascorbic 2020-09 Yes Take by Univer s acid 0-27 mouth. ity of (VITAMIN C 13:33: [place] ORAL) 43 Medical Branch ZINC ORAL 2020-09 Yes Take by Unive rs 0-27 mouth. ity of 13:33: [place] [address] Medical Branch Multivitami 2020-09 Yes Take by Uni vers ns with 0-27 mouth. ity of Fluoride 13:33: [place] (MULTI-MITZY 43 Medical MIN ORAL) Branch ascorbic 2020-09 Yes Take by Univer s acid 0-27 mouth. ity of (VITAMIN C 13:33: [place] ORAL) Medical Branch ZINC ORAL 2020-09 Yes Take by Unive rs 0-27 mouth. ity of 13:33: [place] [address] Medical Branch Multivitami 2020-09 Yes Take by Uni vers ns with 0-27 mouth. ity of Fluoride 13:33: [place] (MULTI-MITZY 43 Medical MIN ORAL) Branch ascorbic 2020-09 Yes Take by Univer s acid 0-27 mouth. ity of (VITAMIN C 13:33: [place] ORAL) Medical Branch ZINC ORAL 2020-09 Yes Take by Unive rs 0-27 mouth. ity of 13:33: [place] [address] Medical Branch Multivitami 2020-09 Yes Take by Uni vers ns with 0-27 mouth. ity of Fluoride 13:33: [place] (MULTI-MITZY 43 Medical MIN ORAL) Branch ascorbic 2020-09 Yes Take by Univer s acid 0-27 mouth. ity of (VITAMIN C 13:33: [place] ORAL) Medical Branch ZINC ORAL 2020-09 Yes Take by Unive rs 0-27 mouth. ity of 13:33: [place] [address] Medical Branch Multivitami 2020-09 Yes Take by Uni vers ns with 0-27 mouth. ity of Fluoride 13:33: [place] (MULTI-MITZY 43 Medical MIN ORAL) Branch ascorbic 2020-09 Yes Take by Univer s acid 0-27 mouth. ity of (VITAMIN C 13:33: [place] ORAL) Medical Branch ZINC ORAL 2020-09 Yes Take by Unive rs 0-27 mouth. ity of 13:33: [place] [address] Medical Branch Multivitami 2020-09 Yes Take by Uni vers ns with 0-27 mouth. ity of Fluoride 13:33: [place] (MULTI-MITZY 43 Medical MIN ORAL) Branch ascorbic 2020-09 Yes Take by Univer s acid 0-27 mouth. ity of (VITAMIN C 13:33: [place] ORAL) 43 Medical Branch ZINC ORAL 2020-09 Yes Take by Unive rs 0-27 mouth. ity of 13:33: [place] [address] Medical Branch Multivitami 2020-09 Yes Take by Uni vers ns with 0-27 mouth. ity of Fluoride 13:33: [place] (MULTI-MITZY 43 Medical MIN ORAL) Branch ascorbic 2020-09 Yes Take by Univer s acid 0-27 mouth. ity of (VITAMIN C 13:33: [place] ORAL) Medical Branch ZINC ORAL 2020-09 Yes Take by Unive rs 0-27 mouth. ity of 13:33: [place] [address] Medical Branch Multivitami 2020-09 Yes Take by Uni vers ns with 0-27 mouth. ity of Fluoride 13:33: [place] (MULTI-MITZY 43 Medical MIN ORAL) Branch ascorbic 2020-09 Yes Take by Univer s acid 0-27 mouth. ity of (VITAMIN C 13:33: [place] ORAL) Medical Branch ZINC ORAL 2020-09 Yes Take by Unive rs 0-27 mouth. ity of 13:33: [place] [address] Medical Branch Multivitami 2020-09 Yes Take by Uni vers ns with 0-27 mouth. ity of Fluoride 13:33: [place] (MULTI-MITZY 43 Medical MIN ORAL) Branch ascorbic 2020-09 Yes Take by Univer s acid 0-27 mouth. ity of (VITAMIN C 13:33: [place] ORAL) Medical Branch ZINC ORAL 2020-09 Yes Take by Unive rs 0-27 mouth. ity of 13:33: [place] [address] [facility] Branch Multivitami 2020-09 Yes Take by Uni vers ns with 0-27 mouth. ity of Fluoride 13:33: [place] (MULTI-MITZY 43 Medical MIN ORAL) Branch ascorbic 2020-09 Yes Take by Univer s acid 0-27 mouth. ity of (VITAMIN C 13:33: [place] ORAL) Medical Branch ZINC ORAL 2020-09 Yes Take by Unive rs 0-27 mouth. ity of 13:33: [place] [address] [facility] Branch Multivitami 2020-09 Yes Take by Uni vers ns with 0-27 mouth. ity of Fluoride 13:33: [place] (MULTI-MITZY 43 Medical MIN ORAL) Branch ascorbic 2020-09 Yes Take by Univer s acid 0-27 mouth. ity of (VITAMIN C 13:33: [place] ORAL) 43 Medical Branch ZINC ORAL 2020-09 Yes Take by Unive rs 0-27 mouth. ity of 13:33: [place] [address] Medical Branch Multivitami 2020-09 Yes Take by Uni vers ns with 0-27 mouth. ity of Fluoride 13:33: [place] (MULTI-MITZY 43 Medical MIN ORAL) Branch ascorbic 2020-09 Yes Take by Univer s acid 0-27 mouth. ity of (VITAMIN C 13:33: [place] ORAL) Medical Branch ZINC ORAL 2020-09 Yes Take by Unive rs 0-27 mouth. ity of 13:33: [place] [address] [facility] Branch Multivitami 2020-09 Yes Take by Uni vers ns with 0-27 mouth. ity of Fluoride 13:33: [place] (MULTI-MITZY 43 Medical MIN ORAL) Branch ascorbic 2020-09 Yes Take by Univer s acid 0-27 mouth. ity of (VITAMIN C 13:33: [place] ORAL) Medical Branch ZINC ORAL 2020-09 Yes Take by Unive rs 0-27 mouth. ity of 13:33: [place] [address] [facility] Branch Multivitami 2020-09 Yes Take by Uni vers ns with 0-27 mouth. ity of Fluoride 13:33: [place] (MULTI-MITZY 43 Medical MIN ORAL) Branch ascorbic 2020-09 Yes Take by Univer s acid 0-27 mouth. ity of (VITAMIN C 13:33: [place] ORAL) Medical Branch ZINC ORAL 2020-09 Yes Take by Unive rs 0-27 mouth. ity of 13:33: [place] [address] [facility] Branch Multivitami 2020-09 Yes Take by Uni vers ns with 0-27 mouth. ity of Fluoride 13:33: [place] (MULTI-MITZY 43 Medical MIN ORAL) Branch ascorbic 2020-09 Yes Take by Univer s acid 0-27 mouth. ity of (VITAMIN C 13:33: [place] ORAL) Medical Branch ZINC ORAL 2020-09 Yes Take by Unive rs 0-27 mouth. ity of 13:33: [place] [address] [facility] Branch Multivitami 2020-09 Yes Take by Uni vers ns with 0-27 mouth. ity of Fluoride 13:33: [place] (MULTI-MITZY 43 Medical MIN ORAL) Branch ascorbic 2020-09 Yes Take by Univer s acid 0-27 mouth. ity of (VITAMIN C 13:33: [place] ORAL) 43 Medical Branch ZINC ORAL 2020-09 Yes Take by Unive rs 0-27 mouth. ity of 13:33: [place] [address] [facility] Branch Multivitami 2020-09 Yes Take by Uni vers ns with 0-27 mouth. ity of Fluoride 13:33: [place] (MULTI-MITZY 43 Medical MIN ORAL) Branch ascorbic 2020-09 Yes Take by Univer s acid 0-27 mouth. ity of (VITAMIN C 13:33: [place] ORAL) Medical Branch ZINC ORAL 2020-09 Yes Take by Unive rs 0-27 mouth. ity of 13:33: [place] [address] [facility] Branch Multivitami 2020-09 Yes Take by Uni vers ns with 0-27 mouth. ity of Fluoride 13:33: [place] (MULTI-MITZY 43 Medical MIN ORAL) Branch ascorbic 2020-09 Yes Take by Univer s acid 0-27 mouth. ity of (VITAMIN C 13:33: [place] ORAL) Medical Branch ZINC ORAL 2020-09 Yes Take by Unive rs 0-27 mouth. ity of 13:33: [place] [address] [facility] Branch Multivitami 2020-09 Yes Take by Uni vers ns with 0-27 mouth. ity of Fluoride 13:33: [place] (MULTI-MITZY 43 Medical MIN ORAL) Branch ascorbic 2020-09 Yes Take by Univer s acid 0-27 mouth. ity of (VITAMIN C 13:33: [place] ORAL) Medical Branch ZINC ORAL 2020-09 Yes Take by Unive rs 0-27 mouth. ity of 13:33: [place] [address] [facility] Branch Multivitami 2020-09 Yes Take by Uni vers ns with 0-27 mouth. ity of Fluoride 13:33: [place] (MULTI-MITZY 43 Medical MIN ORAL) Branch ascorbic 2020-09 Yes Take by Univer s acid 0-27 mouth. ity of (VITAMIN C 13:33: [place] ORAL) Medical Branch ZINC ORAL 2020-09 Yes Take by Unive rs 0-27 mouth. ity of 13:33: [place] [address] [facility] Branch Multivitami 2020-09 Yes Take by Uni vers ns with 0-27 mouth. ity of Fluoride 13:33: [place] (MULTI-MITZY 43 Medical MIN ORAL) Branch ascorbic 2020-09 Yes Take by Univer s acid 0-27 mouth. ity of (VITAMIN C 13:33: [place] ORAL) 43 Medical Branch ZINC ORAL 2020-09 Yes Take by Unive rs 0-27 mouth. ity of 13:33: [place] [address] [facility] Branch Multivitami 2020-09 Yes Take by Uni vers ns with 0-27 mouth. ity of Fluoride 13:33: [place] (MULTI-MITZY 43 Medical MIN ORAL) Branch ascorbic 2020-09 Yes Take by Univer s acid 0-27 mouth. ity of (VITAMIN C 13:33: [place] ORAL) Medical Branch ZINC ORAL 2020-09 Yes Take by Unive rs 0-27 mouth. ity of 13:33: [place] [address] [facility] Branch Multivitami 2020-09 Yes Take by Uni vers ns with 0-27 mouth. ity of Fluoride 13:33: [place] (MULTI-MITZY 43 Medical MIN ORAL) Branch ascorbic 2020-09 Yes Take by Univer s acid 0-27 mouth. ity of (VITAMIN C 13:33: [place] ORAL) Medical Branch ZINC ORAL 2020-09 Yes Take by Unive rs 0-27 mouth. ity of 13:33: [place] [address] [facility] Branch Multivitami 2020-09 Yes Take by Uni vers ns with 0-27 mouth. ity of Fluoride 13:33: [place] (MULTI-MITZY 43 Medical MIN ORAL) Branch ascorbic 2020-09 Yes Take by Univer s acid 0-27 mouth. ity of (VITAMIN C 13:33: [place] ORAL) Medical Branch ZINC ORAL 2020-09 Yes Take by Unive rs 0-27 mouth. ity of 13:33: [place] [address] [facility] Branch Multivitami 2020-09 Yes Take by Uni vers ns with 0-27 mouth. ity of Fluoride 13:33: [place] (MULTI-MITZY 43 Medical MIN ORAL) Branch ascorbic 2020-09 Yes Take by Univer s acid 0-27 mouth. ity of (VITAMIN C 13:33: [place] ORAL) Medical Branch ZINC ORAL 2020-09 Yes Take by Unive rs 0-27 mouth. ity of 13:33: [place] [address] [facility] Branch Multivitami 2020-09 Yes Take by Uni vers ns with 0-27 mouth. ity of Fluoride 13:33: [place] (MULTI-MITZY 43 Medical MIN ORAL) Branch traZODone 2021-1 2021- No 100mg Take 100 Un janet 100 mg 0-27 10-27 mg by ity of tablet 13:33: 00:00 mouth at [place] 43 :00 bedtime. Medical Branch valACYclovi 2020-09 Yes [id number] 500mg Take 1 Univers r (VALTREX) 0-27 tablet by ity of 500 mg 00:00: mouth 2 [place] tablet 00 (two) Medical times Branch daily. valACYclovi 2020-09 Yes [id number] 500mg Take 1 Univers r (VALTREX) 0-27 tablet by ity of 500 mg 00:00: mouth 2 [place] tablet 00 (two) Medical times Branch daily. valACYclovi 2020-09 Yes [id number] 500mg Take 1 Univers r (VALTREX) 0-27 tablet by ity of 500 mg 00:00: mouth 2 [place] tablet 00 (two) Medical times Branch daily. valACYclovi 2020-09 Yes [id number] 500mg Take 1 Univers r (VALTREX) 0-27 tablet by ity of 500 mg 00:00: mouth 2 [place] tablet 00 (two) Medical times Branch daily. valACYclovi 2020-09 Yes [id number] 500mg Take 1 Univers r (VALTREX) 0-27 tablet by ity of 500 mg 00:00: mouth 2 [place] tablet 00 (two) Medical times Branch daily. valACYclovi 2020-09 Yes [id number] 500mg Take 1 Univers r (VALTREX) 0-27 tablet by ity of 500 mg 00:00: mouth 2 [place] tablet 00 (two) Medical times Branch daily. valACYclovi 2020-09 Yes [id number] 500mg Take 1 Univers r (VALTREX) 0-27 tablet by ity of 500 mg 00:00: mouth 2 [place] tablet 00 (two) Medical times Branch daily. valACYclovi 2020-09 Yes [id number] 500mg Take 1 Univers r (VALTREX) 0-27 tablet by ity of 500 mg 00:00: mouth 2 [place] tablet 00 (two) Medical times Branch daily. valACYclovi 2020-09 Yes [id number] 500mg Take 1 Univers r (VALTREX) 0-27 tablet by ity of 500 mg 00:00: mouth 2 [place] tablet 00 (two) Medical times Branch daily. valACYclovi 2020-09 Yes [id number] 500mg Take 1 Univers r (VALTREX) 0-27 tablet by ity of 500 mg 00:00: mouth 2 [place] tablet 00 (two) Medical times Branch daily. valACYclovi 2020-09 Yes [id number] 500mg Take 1 Univers r (VALTREX) 0-27 tablet by ity of 500 mg 00:00: mouth 2 [place] tablet 00 (two) Medical times Branch daily. valACYclovi 2020-09 Yes [id number] 500mg Take 1 Univers r (VALTREX) 0-27 tablet by ity of 500 mg 00:00: mouth 2 [place] tablet 00 (two) Medical times Branch daily. valACYclovi 2020-09 Yes [id number] 500mg Take 1 Univers r (VALTREX) 0-27 tablet by ity of 500 mg 00:00: mouth 2 [place] tablet 00 (two) Medical times Branch daily. valACYclovi 2020-09 Yes [id number] 500mg Take 1 Univers r (VALTREX) 0-27 tablet by ity of 500 mg 00:00: mouth 2 [place] tablet 00 (two) Medical times Branch daily. valACYclovi 2020-09 Yes [id number] 500mg Take 1 Univers r (VALTREX) 0-27 tablet by ity of 500 mg 00:00: mouth 2 [place] tablet 00 (two) Medical times Branch daily. valACYclovi 2020-09 Yes [id number] 500mg Take 1 Univers r (VALTREX) 0-27 tablet by ity of 500 mg 00:00: mouth 2 [place] tablet 00 (two) Medical times Branch daily. valACYclovi 2020-09 Yes [id number] 500mg Take 1 Univers r (VALTREX) 0-27 tablet by ity of 500 mg 00:00: mouth 2 [place] tablet 00 (two) Medical times Branch daily. valACYclovi 2020-09 Yes [id number] 500mg Take 1 Univers r (VALTREX) 0-27 tablet by ity of 500 mg 00:00: mouth 2 [place] tablet 00 (two) Medical times Branch daily. valACYclovi 2020-09 Yes [id number] 500mg Take 1 Univers r (VALTREX) 0-27 tablet by ity of 500 mg 00:00: mouth 2 [place] tablet 00 (two) Medical times Branch daily. valACYclovi 2020-09 Yes [id number] 500mg Take 1 Univers r (VALTREX) 0-27 tablet by ity of 500 mg 00:00: mouth 2 [place] tablet 00 (two) Medical times Branch daily. valACYclovi 2020-09 Yes [id number] 500mg Take 1 Univers r (VALTREX) 0-27 tablet by ity of 500 mg 00:00: mouth 2 [place] tablet 00 (two) Medical times Branch daily. valACYclovi 2020-09 Yes [id number] 500mg Take 1 Univers r (VALTREX) 0-27 tablet by ity of 500 mg 00:00: mouth 2 [place] tablet 00 (two) Medical times Branch daily. valACYclovi 2020-09 Yes [id number] 500mg Take 1 Univers r (VALTREX) 0-27 tablet by ity of 500 mg 00:00: mouth 2 [place] tablet 00 (two) Medical times Branch daily. valACYclovi 2020-09 Yes [id number] 500mg Take 1 Univers r (VALTREX) 0-27 tablet by ity of 500 mg 00:00: mouth 2 [place] tablet 00 (two) Medical times Branch daily. valACYclovi 2020-09 Yes [id number] 500mg Take 1 Univers r (VALTREX) 0-27 tablet by ity of 500 mg 00:00: mouth 2 [place] tablet 00 (two) Medical times Branch daily. valACYclovi 2020-09 Yes [id number] 500mg Take 1 Univers r (VALTREX) 0-27 tablet by ity of 500 mg 00:00: mouth 2 [place] tablet 00 (two) Medical times Branch daily. valACYclovi 2020-09 Yes [id number] 500mg Take 1 Univers r (VALTREX) 0-27 tablet by ity of 500 mg 00:00: mouth 2 [place] tablet 00 (two) Medical times Branch daily. valACYclovi 2020-09 Yes [id number] 500mg Take 1 Univers r (VALTREX) 0-27 tablet by ity of 500 mg 00:00: mouth 2 [place] tablet 00 (two) Medical times Branch daily. valACYclovi 2020-09 Yes [id number] 500mg Take 1 Univers r (VALTREX) 0-27 tablet by ity of 500 mg 00:00: mouth 2 [place] tablet 00 (two) Medical times Branch daily. valACYclovi 2020-093- No [id number] 500mg Take 1 Univers r (VALTREX) 0-27 01-12 tablet by it y of 500 mg 00:00: 00:00 mouth 2 [place] tablet 00 :00 (two) Medical times Branch daily. fenofibrate 2020-09- No [id number] 160mg Take 1 Univers 160 mg 0-09-24 tablet by ity of tablet 00:00: 05:59 mouth [place] 00 :00 daily for Medical 90 days. Branch LOVAZA, 2020-09- No [id number] 2g Take 2 Uni vers omega-3-aci 0-09-24 capsules ity of d ethyl 00:00: 05:59 by mouth 2 [place] as esters, 1 00 :00 (two) Medical gram times Branch capsule daily for 90 days. VALACYCLOVI Yes [id number] TAKE 1 Univers R 500 mg 9-01 TABLET BY ity of tablet 00:00: MOUTH [place] 00 EVERY DAY Medical Branch VALACYCLOVI 0 Yes [id number] TAKE 1 [facility] R 500 mg 9-01 TABLET BY ity of tablet 00:00: MOUTH [place] 00 EVERY DAY Medical Branch VALACYCLOVI 0 Yes [id number] TAKE 1 Univers R 500 mg 9-01 TABLET BY ity of tablet 00:00: MOUTH [place] 00 EVERY DAY Medical Branch VALACYCLOVI 2020-0 Yes [id number] TAKE 1 Univers R 500 mg 9-01 TABLET BY ity of tablet 00:00: MOUTH [place] 00 EVERY DAY Medical Branch VALACYCLOVI 0 Yes [id number] TAKE 1 Univers R 500 mg 9-01 TABLET BY ity of tablet 00:00: MOUTH [place] 00 EVERY DAY Medical Branch VALACYCLOVI 2020-0 Yes [id number] TAKE 1 [facility] R 500 mg 9-01 TABLET BY ity of tablet 00:00: MOUTH [place] 00 EVERY DAY Medical Branch VALACYCLOVI 2020-0 Yes [id number] TAKE 1 [facility] R 500 mg 9-01 TABLET BY ity of tablet 00:00: MOUTH [place] 00 EVERY DAY Medical Branch VALACYCLOVI 2020-0 Yes [id number] TAKE 1 [facility] R 500 mg 9-01 TABLET BY ity of tablet 00:00: MOUTH [place] 00 EVERY DAY Medical Branch VALACYCLOVI 2020-0 Yes [id number] TAKE 1 Univers R 500 mg 9-01 TABLET BY ity of tablet 00:00: MOUTH [place] 00 EVERY DAY Medical Branch VALACYCLOVI 2020-0 Yes [id number] TAKE 1 [facility] R 500 mg 9-01 TABLET BY ity of tablet 00:00: MOUTH [place] 00 EVERY DAY Medical Branch VALACYCLOVI 2020-0 Yes [id number] TAKE 1 [facility] R 500 mg 9-01 TABLET BY ity of tablet 00:00: MOUTH [place] 00 EVERY DAY Medical Branch VALACYCLOVI 2020-0 Yes [id number] TAKE 1 [facility] R 500 mg 9-01 TABLET BY ity of tablet 00:00: MOUTH [place] 00 EVERY DAY Medical Branch VALACYCLOVI 2020-0 Yes [id number] TAKE 1 [facility] R 500 mg 9-01 TABLET BY ity of tablet 00:00: MOUTH [place] 00 EVERY DAY Medical Branch VALACYCLOVI 2020-0 Yes [id number] TAKE 1 [facility] R 500 mg 9-01 TABLET BY ity of tablet 00:00: MOUTH [place] 00 EVERY DAY Medical Branch VALACYCLOVI 2020-0 Yes [id number] TAKE 1 Univers R 500 mg 9-01 TABLET BY ity of tablet 00:00: MOUTH [place] 00 EVERY DAY Medical Branch VALACYCLOVI 2020-0 Yes [id number] TAKE 1 [facility] R 500 mg 9-01 TABLET BY ity of tablet 00:00: MOUTH [place] 00 EVERY DAY Medical Branch VALACYCLOVI 2020-0 Yes [id number] TAKE 1 [facility] R 500 mg 9-01 TABLET BY ity of tablet 00:00: MOUTH [place] 00 EVERY DAY Medical Branch VALACYCLOVI 2020-0 Yes [id number] TAKE 1 [facility] R 500 mg 9-01 TABLET BY ity of tablet 00:00: MOUTH [place] 00 EVERY DAY Medical Branch VALACYCLOVI 2020-0 Yes [id number] TAKE 1 [facility] R 500 mg 9-01 TABLET BY ity of tablet 00:00: MOUTH [place] 00 EVERY DAY Medical Branch VALACYCLOVI 2020-0 Yes [id number] TAKE 1 [facility] R 500 mg 9-01 TABLET BY ity of tablet 00:00: MOUTH [place] 00 EVERY DAY Medical Branch VALACYCLOVI 2020-0 Yes [id number] TAKE 1 [facility] R 500 mg 9-01 TABLET BY ity of tablet 00:00: MOUTH [place] 00 EVERY DAY Medical Branch VALACYCLOVI 2020-0 Yes [id number] TAKE 1 [facility] R 500 mg 9-01 TABLET BY ity of tablet 00:00: MOUTH [place] 00 EVERY DAY Medical Branch VALACYCLOVI 2020-0 Yes [id number] TAKE 1 [facility] R 500 mg 9-01 TABLET BY ity of tablet 00:00: MOUTH [place] 00 EVERY DAY Medical Branch VALACYCLOVI 2021-0 Yes [id number] TAKE 1 [facility] R 500 mg 9-01 TABLET BY ity of tablet 00:00: MOUTH [place] 00 EVERY DAY Medical Branch VALACYCLOVI 0 Yes [id number] TAKE 1 [facility] R 500 mg 9-01 TABLET BY ity of tablet 00:00: MOUTH [place] 00 EVERY DAY Medical Branch VALACYCLOVI Yes [id number] TAKE 1 [facility] R 500 mg 9-01 TABLET BY ity of tablet 00:00: MOUTH [place] 00 EVERY DAY Medical Branch VALACYCLOVI Yes [id number] TAKE 1 [facility] R 500 mg 9-01 TABLET BY ity of tablet 00:00: MOUTH [place] 00 EVERY DAY Medical Branch VALACYCLOVI Yes [id number] TAKE 1 [facility] R 500 mg 9-01 TABLET BY ity of tablet 00:00: MOUTH [place] 00 EVERY DAY Medical Branch VALACYCLOVI Yes [id number] TAKE 1 [facility] R 500 mg 9-01 TABLET BY ity of tablet 00:00: MOUTH [place] 00 EVERY DAY Medical Branch VALACYCLOVI Yes [id number] TAKE 1 [facility] R 500 mg 9-01 TABLET BY ity of tablet 00:00: MOUTH [place] 00 EVERY DAY Medical Branch VALACYCLOVI Yes [id number] TAKE 1 [facility] R 500 mg 9-01 TABLET BY ity of tablet 00:00: MOUTH [place] 00 EVERY DAY Medical Branch ondansetron 2020- No [id number] 8mg Take 1 Univers (ZOFRAN 9-01 10-27 tablet by ity of ODT) 8 mg 00:00: 00:00 mouth [place] disintegrat 00 :00 every 8 Medic al ing tablet (eight) Branch hours as needed for Nausea and Vomiting (N/V). VALACYCLOVI Yes Herpes TAKE 1 Un janet R 500 mg 5-06 simplex TABLET BY ity of tablet 00:00: vulvovagini MOUTH [place] 00 tis EVERY DAY Medical Branch VALACYCLOVI Yes Herpes TAKE 1 Un janet R 500 mg 5-06 simplex TABLET BY ity of tablet 00:00: vulvovagini MOUTH [place] 00 tis EVERY DAY Medical Branch traZODone Yes 100mg Take 100 Uni vers 100 mg 3-25 mg by ity of tablet 18:20: mouth at [place] 25 bedtime. Medical Branch traZODone Yes 100mg Take 100 Uni vers 100 mg 3-25 mg by ity of tablet 18:20: mouth at [place] 25 bedtime. Medical Branch estradioL Yes Hot flashes .5mg Take 1 [facility] 0.5 mg 3-25 tablet by ity of tablet 00:00: mouth [place] 00 daily. Medical Branch medroxyPROG Yes Hot flashes 2.5mg Take 1 Univers ESTERone 3-25 tablet by ity of 2.5 mg 00:00: mouth [place] tablet 00 daily. Medical Branch estradioL Yes Hot flashes .5mg Take 1 Univers 0.5 mg 3-25 tablet by ity of tablet 00:00: mouth [place] 00 daily. Medical Branch medroxyPROG Yes Hot flashes 2.5mg Take 1 Univers ESTERone 3-25 tablet by ity of 2.5 mg 00:00: mouth [place] tablet 00 daily. [facility] Branch estradioL 2- No [id number] .5mg Take 1 Univers 0.5 mg 3-25 04-18 tablet by ity of tablet 00:00: 00:00 mouth [place] 00 :00 daily. Medical Branch medroxyPROG 2- No [id number] 2.5mg Take 1 Univers ESTERone 3-25 04-18 tablet by ity o f 2.5 mg 00:00: 00:00 mouth [place] tablet 00 :00 daily. Medical Branch Fenofibrate Yes TAKE 1 Univ ers 160 mg 2-24 TABLET BY ity of tablet 00:00: MOUTH ONCE 00 DAILY WITH Medical A MEAL FOR Branch 30 DAYS SERTraline Yes Univers 100 mg 2-24 ity of tablet 00:00: [place] 00 Medical Branch JARDIANCE Yes TAKE 1 Univer s 25 mg Tab 2-24 TABLET BY ity o f 00:00: MOUTH ONCE [place] 00 DAILY FOR Medical 30 DAYS Branch Fenofibrate Yes TAKE 1 Univ ers 160 mg 2-24 TABLET BY ity of tablet 00:00: MOUTH ONCE [place] 00 DAILY WITH Medical A MEAL FOR Branch 30 DAYS SERTraline Yes Univers 100 mg 2-24 ity of tablet 00:00: [place] 00 Medical Branch JARDIANCE Yes TAKE 1 Univer s 25 mg Tab 2-24 TABLET BY ity o f 00:00: MOUTH ONCE [place] 00 DAILY FOR Medical 30 DAYS Branch JARDIANCE 2020-2021- No TAKE 1 Unive rs 25 mg Tab 2-24 - TABLET BY ity of 00:00: 00:00 MOUTH ONCE [place] 00 :00 DAILY FOR Medical 30 DAYS Branch JARDIANCE 2020-0 2021- No TAKE 1 Unive rs 25 mg Tab 2-24 - TABLET BY ity of 00:00: 00:00 MOUTH ONCE [place] 00 :00 DAILY FOR Medical 30 DAYS Branch JARDIANCE 2020-0 2021- No TAKE 1 Unive rs 25 mg Tab 2-24 - TABLET BY ity of 00:00: 00:00 MOUTH ONCE [place] 00 :00 DAILY FOR Medical 30 DAYS Branch SERTraline 2020- No Univer s 100 mg 2-24 07-21 ity of tablet 00:00: 00:00 [place] 00 :00 Medical Branch Fenofibrate 2020- No TAKE 1 Uni vers 160 mg -24 06-25 TABLET BY ity of tablet 00:00: 00:00 MOUTH ONCE [place] 00 :00 DAILY WITH Medical A MEAL FOR Branch 30 DAYS Cholecalcif Yes TAKE 1 Univ ers davi, 2-21 CAPSULE BY ity of Vitamin D3, 00:00: MOUTH [place] 1,250 mcg 00 EVERY WEEK Medi dev (50,000 ON Branch unit) MONDAY capsule Cholecalcif Yes TAKE 1 Univ ers davi, 2-21 CAPSULE BY ity of Vitamin D3, 00:00: MOUTH [place] 1,250 mcg 00 EVERY WEEK Medi dev (50,000 ON Branch unit) MONDAY capsule Cholecalcif 2020-0 Yes TAKE 1 Univ ers davi, 2-21 CAPSULE BY ity of Vitamin D3, 00:00: MOUTH [place] 1,250 mcg 00 EVERY WEEK Medi dev (50,000 ON Branch unit) MONDAY capsule Cholecalcif 2020-0 Yes TAKE 1 Univ ers davi, 2-21 CAPSULE BY ity of Vitamin D3, 00:00: MOUTH [place] 1,250 mcg 00 EVERY WEEK Medi dev (50,000 ON Branch unit) MONDAY capsule Cholecalcif 2020-0 Yes TAKE 1 Univ ers davi, 2-21 CAPSULE BY ity of Vitamin D3, 00:00: MOUTH [place] 1,250 mcg 00 EVERY WEEK Medi dev (50,000 ON Branch unit) MONDAY capsule Cholecalcif 2020-0 Yes TAKE 1 Univ ers davi, 2-21 CAPSULE BY ity of Vitamin D3, 00:00: MOUTH [place] 1,250 mcg 00 EVERY WEEK Medi dev (50,000 ON Branch unit) MONDAY capsule Cholecalcif 2020-0 Yes TAKE 1 Univ ers davi, 2-21 CAPSULE BY ity of Vitamin D3, 00:00: MOUTH [place] 1,250 mcg 00 EVERY WEEK Medi dev (50,000 ON Branch unit) MONDAY capsule Cholecalcif 2020-0 Yes TAKE 1 Univ ers davi, 2-21 CAPSULE BY ity of Vitamin D3, 00:00: MOUTH [place] 1,250 mcg 00 EVERY WEEK Medi dev (50,000 ON Branch unit) MONDAY capsule Cholecalcif 2020-0 Yes TAKE 1 Univ ers davi, 2-21 CAPSULE BY ity of Vitamin D3, 00:00: MOUTH [place] 1,250 mcg 00 EVERY WEEK Medi dev (50,000 ON Branch unit) MONDAY capsule Cholecalcif 2020-0 Yes TAKE 1 Univ ers davi, 2-21 CAPSULE BY ity of Vitamin D3, 00:00: MOUTH [place] 1,250 mcg 00 EVERY WEEK Medi dev (50,000 ON Branch unit) MONDAY capsule Cholecalcif 2020-0 Yes TAKE 1 Univ ers davi, 2-21 CAPSULE BY ity of Vitamin D3, 00:00: MOUTH [place] 1,250 mcg 00 EVERY WEEK Medi dev (50,000 ON Branch unit) MONDAY capsule Cholecalcif 2020-0 Yes TAKE 1 Univ ers davi, 2-21 CAPSULE BY ity of Vitamin D3, 00:00: MOUTH [place] 1,250 mcg 00 EVERY WEEK Medi dev (50,000 ON Branch unit) MONDAY capsule Cholecalcif 2020-0 Yes TAKE 1 Univ ers davi, 2-21 CAPSULE BY ity of Vitamin D3, 00:00: MOUTH [place] 1,250 mcg 00 EVERY WEEK Medi dev (50,000 ON Branch unit) MONDAY capsule Cholecalcif 2020-0 Yes TAKE 1 Univ ers davi, 2-21 CAPSULE BY ity of Vitamin D3, 00:00: MOUTH [place] 1,250 mcg 00 EVERY WEEK Medi dev (50,000 ON Branch unit) MONDAY capsule Cholecalcif 2020-0 Yes TAKE 1 Univ ers davi, 2-21 CAPSULE BY ity of Vitamin D3, 00:00: MOUTH [place] 1,250 mcg 00 EVERY WEEK Medi dev (50,000 ON Branch unit) MONDAY capsule Cholecalcif 2020-0 Yes TAKE 1 Univ ers davi, 2-21 CAPSULE BY ity of Vitamin D3, 00:00: MOUTH [place] 1,250 mcg 00 EVERY WEEK Medi dev (50,000 ON Branch unit) MONDAY capsule Cholecalcif 0 Yes TAKE 1 Univ ers davi, 2-21 CAPSULE BY ity of Vitamin D3, 00:00: MOUTH [place] 1,250 mcg 00 EVERY WEEK Medi dev (50,000 ON Branch unit) MONDAY capsule Cholecalcif 0 Yes TAKE 1 Univ ers davi, 2-21 CAPSULE BY ity of Vitamin D3, 00:00: MOUTH [place] 1,250 mcg 00 EVERY WEEK Medi dev (50,000 ON Branch unit) MONDAY capsule Cholecalcif 0 Yes TAKE 1 Univ ers davi, 2-21 CAPSULE BY ity of Vitamin D3, 00:00: MOUTH [place] 1,250 mcg 00 EVERY WEEK Medi dev (50,000 ON Branch unit) MONDAY capsule Cholecalcif 0 Yes TAKE 1 Univ ers davi, 2-21 CAPSULE BY ity of Vitamin D3, 00:00: MOUTH [place] 1,250 mcg 00 EVERY WEEK Medi dev (50,000 ON Branch unit) MONDAY capsule Cholecalcif 2020-0 Yes TAKE 1 Univ ers davi, 2-21 CAPSULE BY ity of Vitamin D3, 00:00: MOUTH [place] 1,250 mcg 00 EVERY WEEK Medi dev (50,000 ON Branch unit) MONDAY capsule Cholecalcif 2020-0 Yes TAKE 1 Univ ers davi, 2-21 CAPSULE BY ity of Vitamin D3, 00:00: MOUTH [place] 1,250 mcg 00 EVERY WEEK Medi dev (50,000 ON Branch unit) MONDAY capsule Cholecalcif 2020-0 Yes TAKE 1 Univ ers davi, 2-21 CAPSULE BY ity of Vitamin D3, 00:00: MOUTH [place] 1,250 mcg 00 EVERY WEEK Medi dev (50,000 ON Branch unit) MONDAY capsule Cholecalcif 2020-0 Yes TAKE 1 Univ ers davi, 2-21 CAPSULE BY ity of Vitamin D3, 00:00: MOUTH [place] 1,250 mcg 00 EVERY WEEK Medi dev (50,000 ON Branch unit) MONDAY capsule Cholecalcif 2020-0 Yes TAKE 1 Univ ers davi, 2-21 CAPSULE BY ity of Vitamin D3, 00:00: MOUTH [place] 1,250 mcg 00 EVERY WEEK Medi dev (50,000 ON Branch unit) MONDAY capsule Cholecalcif 2020-0 Yes TAKE 1 Univ ers davi, 2-21 CAPSULE BY ity of Vitamin D3, 00:00: MOUTH [place] 1,250 mcg 00 EVERY WEEK Medi dev (50,000 ON Branch unit) MONDAY capsule Cholecalcif 2020-0 Yes TAKE 1 Univ ers davi, 2-21 CAPSULE BY ity of Vitamin D3, 00:00: MOUTH [place] 1,250 mcg 00 EVERY WEEK Medi dev (50,000 ON Branch unit) MONDAY capsule Cholecalcif 2020-0 Yes TAKE 1 Univ ers davi, 2-21 CAPSULE BY ity of Vitamin D3, 00:00: MOUTH [place] 1,250 mcg 00 EVERY WEEK Medi dev (50,000 ON Branch unit) MONDAY capsule Cholecalcif 2020-0 Yes TAKE 1 Univ ers davi, 2-21 CAPSULE BY ity of Vitamin D3, 00:00: MOUTH [place] 1,250 mcg 00 EVERY WEEK Medi dev (50,000 ON Branch unit) MONDAY capsule Cholecalcif 2020-0 Yes TAKE 1 Univ ers davi, 2-21 CAPSULE BY ity of Vitamin D3, 00:00: MOUTH [place] 1,250 mcg 00 EVERY WEEK Medi dev (50,000 ON Branch unit) MONDAY capsule Cholecalcif 2020-0 Yes TAKE 1 Univ ers davi, 2-21 CAPSULE BY ity of Vitamin D3, 00:00: MOUTH [place] 1,250 mcg 00 EVERY WEEK Medi dev (50,000 ON Branch unit) MONDAY capsule Cholecalcif 2020-0 Yes TAKE 1 Univ ers davi, 2-21 CAPSULE BY ity of Vitamin D3, 00:00: MOUTH [place] 1,250 mcg 00 EVERY WEEK Medi dev (50,000 ON Branch unit) MONDAY capsule Cholecalcif 2020-0 Yes TAKE 1 Univ ers davi, 2-21 CAPSULE BY ity of Vitamin D3, 00:00: MOUTH [place] 1,250 mcg 00 EVERY WEEK Medi edv (50,000 ON Branch unit) MONDAY capsule cefUROXime 2019-09 Yes Cystitis 250mg Take 1 [facility] 250 mg 1-30 tablet by ity of tablet 00:00: mouth 2 [place] (two) Medical times Branch daily. terconazole 2019-09 Yes Vaginitis 1{appli Insert 1 Univers 0.8 % 1-30 and cator} Applicator ity of vaginal 00:00: vulvovagini into [place] cream 00 tis vagina at Medical bedtime. Branch lisinopriL2019-09 Yes Essential 1{tbl} Take 1 Univers hydrochloro 1-30 hypertensio tablet by ity of thiazide 00:00: n mouth [place] 20-25 mg 00 daily. Medical per tablet Branch metoprolol 2019-09 Yes Essential 100mg Take 1 Univers tartrate 1-30 hypertensio tablet by ity of 100 mg 00:00: n mouth [place] tablet 00 daily. Medical Branch cefUROXime 2019-09 Yes Cystitis 250mg Take 1 Univers 250 mg 1-30 tablet by ity of tablet 00:00: mouth 2 [place] (two) Medical times [place] daily. terconazole 2019-09 Yes Vaginitis 1{appli Insert 1 Univers 0.8 % 1-30 and cator} Applicator ity of vaginal 00:00: vulvovagini into [place] cream 00 tis vagina at Medical bedtime. Branch lisinopriL2019-09 Yes Essential 1{tbl} Take 1 Univers hydrochloro 1-30 hypertensio tablet by ity of thiazide 00:00: n mouth [place] 20-25 mg 00 daily. Medical per tablet Branch metoprolol 2019-09 Yes Essential 100mg Take 1 Univers tartrate 1-30 hypertensio tablet by ity of 100 mg 00:00: n mouth [place] tablet 00 daily. Medical Branch lisinopriL- 2019-09- No [id number] 1{tbl} Take 1 Univers hydrochloro 1-30 12-07 tablet by it y of thiazide 00:00: 00:00 mouth [place] 20-25 mg 00 :00 daily. Medical per tablet Branch metoprolol 2019-09- No [id number] 100mg Take 1 Univers tartrate 1-30 12-07 tablet by ity o f 100 mg 00:00: 00:00 mouth [place] tablet 00 :00 daily. Medical Branch cefUROXime 2019-09- No [id number] 250mg Take 1 Univers 250 mg 10-24 tablet by ity of tablet 00:00: 00:00 mouth 2 [place] 00 :00 (two) Medical times Branch daily. terconazole 2019-09- No [id number] 1{appli Insert 1 Univers 0.8 % 10-24 cator} Applicator ity o f vaginal 00:00: 00:00 into [place] cream 00 :00 vagina at Medical bedtime. Branch fenofibrate Yes Type 2 145mg Take 1 U nivers 145 mg 9-11 diabetes tablet by ity of tablet 00:00: mellitus mouth at [place] 00 without bedtime. Medical complicatio Branch n, with long-term current use of insulin fenofibrate Yes Type 2 145mg Take 1 U nivers 145 mg 9-11 diabetes tablet by ity of tablet 00:00: mellitus mouth at [place] 00 without bedtime. Medical complicatio Branch n, with long-term current use of insulin fenofibrate 2020- No [id number] 145mg Take 1 Univers 145 mg -08 03-30 tablet by ity of tablet 00:00: 00:00 mouth at [place] 00 :00 bedtime. Medical Branch Miscellaneo 20200 Yes [id number] J40: [facility] 05-29 [id number] [place] i ty of Supply Kit 00:00: - Dispense [place] 00 # 1 Medical Ale[place] Branch Respironic s (okay for alternativ e brand) for nebulizer treatment Miscellaneo 2020-0 Yes [id number] J40: [facility] 05-29 [id number] Bro[place] i ty of Supply Kit 00:00: - Dispense [place] 00 # 1 Medical Ale[place] Branch Respironic s (okay for alternativ e brand) for nebulizer treatment Miscellaneo 2020-0 Yes [id number] J40: [facility] 05-29 [id number] [place] i ty of Supply Kit 00:00: - Dispense [place] 00 # 1 Medical [place] Branch Respironic s (okay for alternativ e brand) for nebulizer treatment Miscellaneo 2020-0 Yes [id number] J40: [facility] 05-29 [id number] Bro[place] i ty of Supply Kit 00:00: - Dispense [place] 00 # 1 Medical [place] Branch Respironic s (okay for alternativ e brand) for nebulizer treatment Miscellaneo 2020-0 Yes [id number] J40: [facility] [id number] [place] i ty of Supply Kit 00:00: - Dispense [place] 00 # 1 Medical [place] Branch Respironic s (okay for alternativ e brand) for nebulizer treatment Miscellaneo 2020-0 Yes [id number] J40: [address] [id number] Brochitis i ty of Supply Kit 00:00: - Dispense [place] 00 # 1 Medical [place] Branch Respironic s (okay for alternativ e brand) for nebulizer treatment Miscellaneo 2020-0 Yes [id number] J40: [address] [id number] Brochitis i ty of Supply Kit 00:00: - Dispense [place] 00 # 1 Medical [place] Branch Respironic s (okay for alternativ e brand) for nebulizer treatment Miscellaneo 2020-0 Yes [id number] J40: [address] [id number] [place]itis i ty of Supply Kit 00:00: - Dispense [place] 00 # 1 Medical [place] Branch Respironic s (okay for alternativ e brand) for nebulizer treatment Miscellaneo 2020-0 Yes [id number] J40: [address] [id number] Brochitis i ty of Supply Kit 00:00: - Dispense [place] 00 # 1 Medical [place] Branch Respironic s (okay for alternativ e brand) for nebulizer treatment Miscellaneo 2020-0 Yes [id number] J40: [address] [id number] Brochitis i ty of Supply Kit 00:00: - Dispense [place] 00 # 1 Medical [place] Branch Respironic s (okay for alternativ e brand) for nebulizer treatment Miscellaneo 2020-0 Yes [id number] J40: [address] [id number] Brochitis i ty of Supply Kit 00:00: - Dispense [place] 00 # 1 Medical [place] Branch Respironic s (okay for alternativ e brand) for nebulizer treatment Miscellaneo 2020-0 Yes [id number] J40: [facility] 05-29 [id number] Brochitis i ty of Supply Kit 00:00: - Dispense [place] 00 # 1 Medical [place] Branch Respironic s (okay for alternativ e brand) for nebulizer treatment Miscellaneo 2020-0 Yes [id number] J40: [facility] 05-29 [id number] Brochitis i ty of Supply Kit 00:00: - Dispense [place] 00 # 1 Medical [place] Branch Respironic s (okay for alternativ e brand) for nebulizer treatment Miscellaneo 2020-0 Yes [id number] J40: [facility] [id number] Brochitis i ty of Supply Kit 00:00: - Dispense [place] 00 # 1 Medical [place] Branch Respironic s (okay for alternativ e brand) for nebulizer treatment Miscellaneo 2020-0 Yes [id number] J40: [facility] [id number] Brochitis i ty of Supply Kit 00:00: - Dispense [place] 00 # 1 Medical [place] Branch Respironic s (okay for alternativ e brand) for nebulizer treatment Miscellaneo 2020-0 Yes [id number] J40: [facility] [phone] Brochitis i ty of Supply Kit 00:00: - Dispense [place] 00 # 1 Medical [place] Branch Respironic s (okay for alternativ e brand) for nebulizer treatment Miscellaneo 2020-0 Yes [id number] J40: [facility] 05-29 [id number] Brochitis i ty of Supply Kit 00:00: - Dispense [place] 00 # 1 Medical [place] Branch Respironic s (okay for alternativ e brand) for nebulizer treatment Miscellaneo 2020-0 Yes [id number] J40: [facility] [id number] Brochitis i ty of Supply Kit 00:00: - Dispense [place] 00 # 1 Medical [place] Branch Respironic s (okay for alternativ e brand) for nebulizer treatment Miscellaneo 2020-0 Yes [id number] J40: [facility] 05-29 [id number] Brochitis i ty of Supply Kit 00:00: - Dispense [place] 00 # 1 Medical [place] Branch Respironic s (okay for alternativ e brand) for nebulizer treatment Miscellaneo 2020-0 Yes [id number] J40: [address] [id number] Brochitis i ty of Supply Kit 00:00: - Dispense [place] 00 # 1 Medical [place] Branch Respironic s (okay for alternativ e brand) for nebulizer treatment Miscellaneo 2020-0 Yes [id number] J40: [address] [id number] Brochitis i ty of Supply Kit 00:00: - Dispense [place] 00 # 1 Medical [place] Branch Respironic s (okay for alternativ e brand) for nebulizer treatment Miscellaneo 2020-0 Yes [id number] J40: [address] [id number] Brochitis i ty of Supply Kit 00:00: - Dispense [place] 00 # 1 Medical [place] Branch Respironic s (okay for alternativ e brand) for nebulizer treatment Miscellaneo 2020-0 Yes [id number] J40: [facility] [id number] Brochitis i ty of Supply Kit 00:00: - Dispense [place] 00 # 1 Medical [place] Branch Respironic s (okay for alternativ e brand) for nebulizer treatment Miscellaneo 2020-0 Yes [id number] J40: [address] [id number] Brochitis i ty of Supply Kit 00:00: - Dispense [place] 00 # 1 Medical [place] Branch Respironic s (okay for alternativ e brand) for nebulizer treatment Miscellaneo 2020-0 Yes [id number] J40: [facility] [id number] Brochitis i ty of Supply Kit 00:00: - Dispense [place] 00 # 1 Medical [place] Branch Respironic s (okay for alternativ e brand) for nebulizer treatment Miscellaneo 2020-0 Yes [id number] J40: [address] [id number] Brochitis i ty of Supply Kit 00:00: - Dispense [place] 00 # 1 Medical [place] Branch Respironic s (okay for alternativ e brand) for nebulizer treatment Miscellaneo 2020-0 Yes [id number] J40: [facility] 05-29 [id number] Brochitis i ty of Supply Kit 00:00: - Dispense [place] 00 # 1 Medical [place] Branch Respironic s (okay for alternativ e brand) for nebulizer treatment Miscellaneo 2020-0 Yes [id number] J40: [facility] 05-29 [id number] Brochitis i ty of Supply Kit 00:00: - Dispense [place] 00 # 1 Medical [place] Branch Respironic s (okay for alternativ e brand) for nebulizer treatment Miscellaneo 2020-0 Yes [id number] J40: [facility] 05-29 [id number] Brochitis i ty of Supply Kit 00:00: - Dispense [place] 00 # 1 Medical [place] Branch Respironic s (okay for alternativ e brand) for nebulizer treatment Miscellaneo 2020-0 Yes [id number] J40: [facility] 05-29 Brochitis i ty of Supply Kit 00:00: - Dispense [place] 00 # 1 Medical [place] Branch Respironic s (okay for alternativ e brand) for nebulizer treatment Miscellaneo 2020-0 Yes [id number] J40: [facility] [phone] Bro[place] i ty of Supply Kit 00:00: - Dispense [place] 00 # 1 Medical [place] Branch Respironic s (okay for alternativ e brand) for nebulizer treatment Miscellaneo 2020-0 Yes Pneumonia J40: [facility] 05-29 due to Brochitis it y of Supply Kit 00:00: COVID-19 - Dispense [place] 00 virus # 1 Medical [place] Branch Respironic s (okay for alternativ e brand) for nebulizer treatment Miscellaneo 2020-0 Yes Pneumonia J40: U [facility] 05-29 due to Brochitis it y of Supply Kit 00:00: COVID-19 - Dispense [place] 00 virus # 1 Medical [place] Branch Respironic s (okay for alternativ e brand) for nebulizer treatment valACYclovi 2020-0 2020- No Herpes 500mg Take 1 Univers r 500 mg 04-21 05-06 simplex tablet by it y of tablet 00:00: 00:00 vulvovagini mouth [place] 00 :00 tis daily. Medical Branch [facility] 2018- Yes 10mg Take 10 mg Uni vers VERIO HIGH 2-05 by mouth. ity of CONTROL 00:00: [facility] Branch [facility] 2018- Yes 10mg Take 10 mg Uni vers VERIO HIGH 2-05 by mouth. ity of CONTROL 00:00: [facility] Medical Branch [facility] 2018- Yes 10mg Take 10 mg Uni vers VERIO HIGH 2-05 by mouth. ity of CONTROL 00:00: [facility] Medical Branch [facility] 2018- Yes 10mg Take 10 mg Uni vers VERIO HIGH 2-05 by mouth. ity of CONTROL 00:00: [facility] Medical Branch [facility] 2018- Yes 10mg Take 10 mg Uni vers VERIO HIGH 2-05 by mouth. ity of CONTROL 00:00: [facility] 2018- Yes 10mg Take 10 mg Uni vers VERIO HIGH 2-05 by mouth. ity of CONTROL 00:00: [facility] Medical Branch [facility] 2018- Yes 10mg Take 10 mg Uni vers VERIO HIGH 2-05 by mouth. ity of CONTROL 00:00: [facility] 2018- Yes 10mg Take 10 mg Uni vers VERIO HIGH 2-05 by mouth. ity of CONTROL 00:00: [facility] 2018- Yes 10mg Take 10 mg Uni vers VERIO HIGH 2-05 by mouth. ity of CONTROL 00:00: [facility] Branch [facility] 2018- Yes 10mg Take 10 mg Uni vers VERIO HIGH 2-05 by mouth. ity of CONTROL 00:00: [facility] 2018- Yes 10mg Take 10 mg Uni vers VERIO HIGH 2-05 by mouth. ity of CONTROL 00:00: [facility] 2018- Yes 10mg Take 10 mg Uni vers VERIO HIGH 2-05 by mouth. ity of CONTROL 00:00: [facility] 2018- Yes 10mg Take 10 mg Uni vers VERIO HIGH 2-05 by mouth. ity of CONTROL 00:00: [facility] 2018-09 Yes 10mg Take 10 mg Uni vers VERIO HIGH 2-05 by mouth. ity of CONTROL 00:00: [facility] 2018- Yes 10mg Take 10 mg Uni vers VERIO HIGH 2-05 by mouth. ity of CONTROL 00:00: [facility] 2018- Yes 10mg Take 10 mg Uni vers VERIO HIGH 2-05 by mouth. ity of CONTROL 00:00: [facility] 2018-09 Yes 10mg Take 10 mg Uni vers VERIO HIGH 2-05 by mouth. ity of CONTROL 00:00: [facility] 2018-09 Yes 10mg Take 10 mg Uni vers VERIO HIGH 2-05 by mouth. ity of CONTROL 00:00: [facility] 2018-09 Yes 10mg Take 10 mg Uni vers VERIO HIGH 2-05 by mouth. ity of CONTROL 00:00: [facility] 2018- Yes 10mg Take 10 mg Uni vers VERIO HIGH 2-05 by mouth. ity of CONTROL 00:00: [facility] 2018-09 Yes 10mg Take 10 mg Uni vers VERIO HIGH 2-05 by mouth. ity of CONTROL 00:00: [facility] 2018-09 Yes 10mg Take 10 mg Uni vers VERIO HIGH 2-05 by mouth. ity of CONTROL 00:00: [facility] 2018-09 Yes 10mg Take 10 mg Uni vers VERIO HIGH 2-05 by mouth. ity of CONTROL 00:00: [facility] 2018-09 Yes 10mg Take 10 mg Uni vers VERIO HIGH 2-05 by mouth. ity of CONTROL 00:00: [facility] 2018- Yes 10mg Take 10 mg Uni vers VERIO HIGH 2-05 by mouth. ity of CONTROL 00:00: [facility] 2018-09 Yes 10mg Take 10 mg Uni vers VERIO HIGH 2-05 by mouth. ity of CONTROL 00:00: [facility] 2018- Yes 10mg Take 10 mg Uni vers VERIO HIGH 2-05 by mouth. ity of CONTROL 00:00: [facility] 2018-09 Yes 10mg Take 10 mg Uni vers VERIO HIGH 2-05 by mouth. ity of CONTROL 00:00: [facility] 2018-09 Yes 10mg Take 10 mg Uni vers VERIO HIGH 2-05 by mouth. ity of CONTROL 00:00: [facility] 2018-09 Yes 10mg Take 10 mg Uni vers VERIO HIGH 2-05 by mouth. ity of CONTROL 00:00: [facility] 2018-09 Yes 10mg Take 10 mg Uni vers VERIO HIGH 2-05 by mouth. ity of CONTROL 00:00: [facility] 2018-09 Yes 10mg Take 10 mg Uni vers VERIO HIGH 2-05 by mouth. ity of CONTROL 00:00: [facility] 2018-09 Yes INJECT 30 Un janet U-300 2-05 UNITS ity of SOLOSTAR 00:00: SUBCUTANEO [place] 300 unit/mL 00 USLY TWICE Me dical (3 mL) InPn DAILY FOR Bra nch 30 DAYS [facility] 2018-09 Yes 10mg Take 10 mg Uni vers VERIO HIGH 2-05 by mouth. ity of CONTROL 00:00: [facility] 2018-09 Yes INJECT 30 Un janet U-300 2-05 UNITS ity of SOLOSTAR 00:00: SUBCUTANEO [place] 300 unit/mL 00 USLY TWICE Me dical (3 mL) InPn DAILY FOR Bra nch 30 DAYS [facility] 2018-09- No INJECT 30 U nivers U-300 2-05 08-19 UNITS ity of SOLOSTAR 00:00: 00:00 [place]BC[place]ANEO [place] 300 unit/mL 00 :00 USLY TWICE Me dical (3 mL) InPn DAILY FOR Bra nch 30 DAYS [facility] 2018-09- No INJECT 30 U nivers U-300 2-05 08-19 UNITS ity of SOLOSTAR 00:00: 00:00 SUBCUTANEO [place] 300 unit/mL 00 :00 USLY TWICE Me dical (3 mL) InPn DAILY FOR Bra nch 30 DAYS [facility] 2018-09- No INJECT 30 U nivers U-300 2-05 08-19 UNITS ity of SOLOSTAR 00:00: 00:00 SUBCUTANEO [place] 300 unit/mL 00 :00 USLY TWICE Me dical (3 mL) InPn DAILY FOR Bra nch 30 DAYS [facility] 2018-09 Yes TAKE 1 Univer s 10 mg Tab 2-04 TABLET BY ity o f 00:00: MOUTH ONCE [place] 00 DAILY FOR Medical 30 DAYS Branch PLEASE STOP GLYXAMBI [place] 2018-09 Yes TAKE 1 Univer s 10 mg Tab 2-04 TABLET BY ity o f 00:00: MOUTH ONCE [place] 00 DAILY FOR Medical 30 DAYS Branch PLEASE STOP GLYXAMBI [place] 2018-09- No TAKE 1 Unive rs 10 mg Tab 2-04 -19 TABLET BY ity of 00:00: 00:00 MOUTH ONCE [place] 00 :00 DAILY FOR Medical 30 DAYS Branch PLEASE STOP GLYXAMBI [place] 2018-09- No TAKE 1 Unive rs 10 mg Tab 2-04 -19 TABLET BY ity of 00:00: 00:00 MOUTH ONCE [place] 00 :00 DAILY FOR Medical 30 DAYS Branch PLEASE STOP GLYXAMBI [place] 2018-09- No TAKE 1 Unive rs 10 mg Tab 2-04 08-19 TABLET BY ity of 00:00: 00:00 MOUTH ONCE [place] 00 :00 DAILY FOR Medical 30 DAYS Branch PLEASE STOP GLYXAMBI Insulin 2018- Yes [id number] BID, Unive rs [place], 4-24 DX:E11.9 ity of Disposable, 00:00: [place] (BD 00 Medical ULTRAFINE Branch III MINI PEN) 31 gauge x 3/16" Ndle blood sugar 2018- Yes Use as Univ ers diagnostic 4-24 directed, ity of (ONETOUCH 00:00: TID, [place] VERIO) 00 DX:E11.9 Medical strip Branch lancets 2018- Yes Use as Univers (ONETOUCH 4-24 directed, ity o f DELICA 00:00: TID, [place] LANCETS) 30 00 DX:E11.9 Medi dev gauge Misc Branch Insulin 2019- Yes [id number] BID, Unive rs [place], 4-24 DX:E11.9 ity of Disposable, 00:00: [place] (BD 00 Medical ULTRAFINE Branch III MINI PEN) 31 gauge x 3/16" Ndle blood sugar 2019-0 Yes Use as Univ ers diagnostic 4-24 directed, ity of (ONETOUCH 00:00: TID, [place] VERIO) 00 DX:E11.9 Medical strip Branch lancets 2019-0 Yes Use as Univers (ONETOUCH 4-24 directed, ity o f DELICA 00:00: TID, [place] LANCETS) 30 00 DX:E11.9 Medi dev gauge Misc Branch Insulin 2019-0 Yes [id number] BID, Unive rs [place], 4-24 DX:E11.9 ity of Disposable, 00:00: [place] (BD 00 Medical ULTRAFINE Branch III MINI PEN) 31 gauge x 3/16" Ndle blood sugar 2019-0 Yes Use as Univ ers diagnostic 4-24 directed, ity of (ONETOUCH 00:00: TID, [place] VER) 00 DX:E11.9 Medical strip Branch lancets 2019-0 Yes Use as Univers (ONETOUCH 4-24 directed, ity o f DELICA 00:00: TID, [place] LANCETS) 30 00 DX:E11.9 Medi dev gauge Misc Branch Insulin 2019-0 Yes [id number] BID, Unive rs [place], 4-24 DX:E11.9 ity of Disposable, 00:00: [place] (BD 00 Medical ULTRAFINE Branch III MINI PEN) 31 gauge x 3/16" Ndle blood sugar 2019-0 Yes Use as Univ ers diagnostic 4-24 directed, ity of (ONETOUCH 00:00: TID, [place] VER) 00 DX:E11.9 Medical strip Branch lancets 2019-0 Yes Use as Univers (ONETOUCH 4-24 directed, ity o f DELICA 00:00: TID, [place] LANCETS) 30 00 DX:E11.9 Medi dev gauge Misc Branch Insulin 2019-0 Yes [id number] BID, Unive rs [place], 4-24 DX:E11.9 ity of Disposable, 00:00: [place] (BD 00 Medical ULTRAFINE Branch III MINI PEN) 31 gauge x 3/16" Ndle blood sugar 2019-0 Yes Use as Univ ers diagnostic 4-24 directed, ity of (ONETOUCH 00:00: TID, [place] VER) 00 DX:E11.9 Medical strip Branch lancets 2019-0 Yes Use as Univers (ONETOUCH 4-24 directed, ity o f DELICA 00:00: TID, [place] LANCETS) 30 00 DX:E11.9 Medi dev gauge Misc Branch Insulin 2019-0 Yes [id number] BID, Unive rs [place], 4-24 DX:E11.9 ity of Disposable, 00:00: [place] (BD 00 Medical ULTRAFINE Branch III MINI PEN) 31 gauge x 3/16" Ndle blood sugar 2019-0 Yes Use as Univ ers diagnostic 4-24 directed, ity of (ONETOUCH 00:00: TID, [place] VERIO) 00 DX:E11.9 Medical strip Branch lancets 2019-0 Yes Use as Univers (ONETOUCH 4-24 directed, ity o f DELICA 00:00: TID, [place] LANCETS) 30 00 DX:E11.9 Medi dev gauge Misc Branch Insulin 2019-0 Yes [id number] BID, Unive rs [place], 4-24 DX:E11.9 ity of Disposable, 00:00: [place] (BD 00 Medical ULTRAFINE Branch III MINI PEN) 31 gauge x 3/16" Ndle blood sugar 2019-0 Yes Use as Univ ers diagnostic 4-24 directed, ity of (ONETOUCH 00:00: TID, [place] VERIO) 00 DX:E11.9 Medical strip Branch lancets 2019-0 Yes Use as Univers (ONETOUCH 4-24 directed, ity o f DELICA 00:00: TID, [place] LANCETS) 30 00 DX:E11.9 Medi dev gauge Misc Branch Insulin 2019-0 Yes [id number] BID, Unive rs [place], 4-24 DX:E11.9 ity of Disposable, 00:00: [place] (BD 00 Medical ULTRAFINE Branch III MINI PEN) 31 gauge x 3/16" Ndle blood sugar 2019-0 Yes Use as Univ ers diagnostic 4-24 directed, ity of (ONETOUCH 00:00: TID, [place] VERIO) 00 DX:E11.9 Medical strip Branch lancets 2019-0 Yes Use as Univers (ONETOUCH 4-24 directed, ity o f DELICA 00:00: TID, [place] LANCETS) 30 00 DX:E11.9 Medi dev gauge Misc Branch Insulin 2019-0 Yes [id number] BID, Unive rs [place], 4-24 DX:E11.9 ity of Disposable, 00:00: [place] (BD 00 Medical ULTRAFINE Branch III MINI PEN) 31 gauge x 3/16" Ndle blood sugar 2019-0 Yes Use as Univ ers diagnostic 4-24 directed, ity of (ONETOUCH 00:00: TID, [place] VERIO) 00 DX:E11.9 Medical strip Branch lancets 2019-0 Yes Use as Univers (ONETOUCH 4-24 directed, ity o f DELICA 00:00: TID, [place] LANCETS) 30 00 DX:E11.9 Medi dev gauge Misc Branch Insulin 2019-0 Yes [id number] BID, Unive rs [place], 4-24 DX:E11.9 ity of Disposable, 00:00: [place] (BD 00 Medical ULTRAFINE Branch III MINI PEN) 31 gauge x 3/16" Ndle blood sugar 2019-0 Yes Use as Univ ers diagnostic 4-24 directed, ity of (ONETOUCH 00:00: TID, [place] VER) 00 DX:E11.9 Medical strip Branch lancets 2019-0 Yes Use as Univers (ONETOUCH 4-24 directed, ity o f DELICA 00:00: TID, [place] LANCETS) 30 00 DX:E11.9 Medi dev gauge Misc Branch Insulin 2019-0 Yes [id number] BID, Unive rs [place], 4-24 DX:E11.9 ity of Disposable, 00:00: [place] (BD 00 Medical ULTRAFINE Branch III MINI PEN) 31 gauge x 3/16" Ndle blood sugar 2019-0 Yes Use as Univ ers diagnostic 4-24 directed, ity of (ONETOUCH 00:00: TID, [place] VERIO) 00 DX:E11.9 Medical strip Branch lancets 2019-0 Yes Use as Univers (ONETOUCH 4-24 directed, ity o f DELICA 00:00: TID, [place] LANCETS) 30 00 DX:E11.9 Medi dev gauge Misc Branch Insulin 2019-0 Yes [id number] BID, Unive rs [place], 4-24 DX:E11.9 ity of Disposable, 00:00: [place] (BD 00 Medical ULTRAFINE Branch III MINI PEN) 31 gauge x 3/16" Ndle blood sugar 2019-0 Yes Use as Univ ers diagnostic 4-24 directed, ity of (ONETOUCH 00:00: TID, [place] VER) 00 DX:E11.9 Medical strip Branch lancets 2019-0 Yes Use as Univers (ONETOUCH 4-24 directed, ity o f DELICA 00:00: TID, [place] LANCETS) 30 00 DX:E11.9 Medi dev gauge Misc Branch Insulin 2019-0 Yes [id number] BID, Unive rs [place], 4-24 DX:E11.9 ity of Disposable, 00:00: [place] (BD 00 Medical ULTRAFINE Branch III MINI PEN) 31 gauge x 3/16" Ndle blood sugar 2019-0 Yes Use as Univ ers diagnostic 4-24 directed, ity of (ONETOUCH 00:00: TID, [place] VER) 00 DX:E11.9 Medical strip Branch lancets 2019-0 Yes Use as Univers (ONETOUCH 4-24 directed, ity o f DELICA 00:00: TID, [place] LANCETS) 30 00 DX:E11.9 Medi dev gauge Misc Branch Insulin 2019-0 Yes [id number] BID, Unive rs [place], 4-24 DX:E11.9 ity of Disposable, 00:00: [place] (BD 00 Medical ULTRAFINE Branch III MINI PEN) 31 gauge x 3/16" Ndle blood sugar 2019-0 Yes Use as Univ ers diagnostic 4-24 directed, ity of (ONETOUCH 00:00: TID, [place] VER) 00 DX:E11.9 Medical strip Branch lancets 2019-0 Yes Use as Univers (ONETOUCH 4-24 directed, ity o f DELICA 00:00: TID, [place] LANCETS) 30 00 DX:E11.9 Medi dev gauge Misc Branch Insulin 2019-0 Yes [id number] BID, [facility] [place], 4-24 DX:E11.9 ity of Disposable, 00:00: [place] (BD 00 Medical ULTRAFINE Branch III MINI PEN) 31 gauge x 3/16" Ndle blood sugar 2019-0 Yes Use as Univ ers diagnostic 4-24 directed, ity of (ONETOUCH 00:00: TID, [place] VERIO) 00 DX:E11.9 Medical strip Branch lancets 2019-0 Yes Use as Univers (ONETOUCH 4-24 directed, ity o f DELICA 00:00: TID, [place] LANCETS) 30 00 DX:E11.9 Medi dev gauge Misc Branch Insulin 2019-0 Yes [id number] BID, [facility] [place], 4-24 DX:E11.9 ity of Disposable, 00:00: [place] (BD 00 Medical ULTRAFINE Branch III MINI PEN) 31 gauge x 3/16" Ndle blood sugar 2019-0 Yes Use as Univ ers diagnostic 4-24 directed, ity of (ONETOUCH 00:00: TID, [place] VER) 00 DX:E11.9 Medical strip Branch lancets 2019-0 Yes Use as Univers (ONETOUCH 4-24 directed, ity o f DELICA 00:00: TID, [place] LANCETS) 30 00 DX:E11.9 Medi dev gauge Misc Branch Insulin 2019-0 Yes [id number] BID, [facility] [place], 4-24 DX:E11.9 ity of Disposable, 00:00: [place] (BD 00 Medical ULTRAFINE Branch III MINI PEN) 31 gauge x 3/16" Ndle blood sugar 2019-0 Yes Use as Univ ers diagnostic 4-24 directed, ity of (ONETOUCH 00:00: TID, [place] VER) 00 DX:E11.9 Medical strip Branch lancets 2019-0 Yes Use as Univers (ONETOUCH 4-24 directed, ity o f DELICA 00:00: TID, [place] LANCETS) 30 00 DX:E11.9 Medi dev gauge Misc Branch Insulin 2019-0 Yes [id number] BID, [facility] [place], 4-24 DX:E11.9 ity of Disposable, 00:00: [place] (BD 00 Medical ULTRAFINE Branch III MINI PEN) 31 gauge x 3/16" Ndle blood sugar 2019-0 Yes Use as Univ ers diagnostic 4-24 directed, ity of (ONETOUCH 00:00: TID, [place] VERIO) 00 DX:E11.9 Medical strip Branch lancets 2019-0 Yes Use as Univers (ONETOUCH 4-24 directed, ity o f DELICA 00:00: TID, [place] LANCETS) 30 00 DX:E11.9 Medi dev gauge Misc Branch Insulin 2019-0 Yes [id number] BID, [facility] [place], 4-24 DX:E11.9 ity of Disposable, 00:00: [place] (BD 00 Medical ULTRAFINE Branch III MINI PEN) 31 gauge x 3/16" Ndle blood sugar 2019-0 Yes Use as Univ ers diagnostic 4-24 directed, ity of (ONETOUCH 00:00: TID, [place] VERIO) 00 DX:E11.9 Medical strip Branch lancets 2019-0 Yes Use as Univers (ONETOUCH 4-24 directed, ity o f DELICA 00:00: TID, [place] LANCETS) 30 00 DX:E11.9 Medi dev gauge Misc Branch Insulin 2019-0 Yes [id number] BID, [facility] [place], 4-24 DX:E11.9 ity of Disposable, 00:00: [place] (BD 00 Medical ULTRAFINE Branch III MINI PEN) 31 gauge x 3/16" Ndle blood sugar 2019-0 Yes Use as Univ ers diagnostic 4-24 directed, ity of (ONETOUCH 00:00: TID, [place] VERIO) 00 DX:E11.9 Medical strip Branch lancets 2019-0 Yes Use as Univers (ONETOUCH 4-24 directed, ity o f DELICA 00:00: TID, [place] LANCETS) 30 00 DX:E11.9 Medi dev gauge Misc Branch Insulin 2019-0 Yes [id number] BID, [facility] [place], 4-24 DX:E11.9 ity of Disposable, 00:00: [place] (BD 00 Medical ULTRAFINE Branch III MINI PEN) 31 gauge x 3/16" Ndle blood sugar 2019-0 Yes Use as Univ ers diagnostic 4-24 directed, ity of (ONETOUCH 00:00: TID, [place] VERIO) 00 DX:E11.9 Medical strip Branch lancets 2019-0 Yes Use as Univers (ONETOUCH 4-24 directed, ity o f DELICA 00:00: TID, [place] LANCETS) 30 00 DX:E11.9 Medi dev gauge Misc Branch Insulin 2019-0 Yes [id number] BID, [facility] [place], 4-24 DX:E11.9 ity of Disposable, 00:00: [place] (BD 00 Medical ULTRAFINE Branch III MINI PEN) 31 gauge x 3/16" Ndle blood sugar 2019-0 Yes Use as Univ ers diagnostic 4-24 directed, ity of (ONETOUCH 00:00: TID, [place] VERIO) 00 DX:E11.9 Medical strip Branch lancets 2019-0 Yes Use as Univers (ONETOUCH 4-24 directed, ity o f DELICA 00:00: TID, [place] LANCETS) 30 00 DX:E11.9 Medi dev gauge Misc Branch Insulin 2019-0 Yes [id number] BID, [facility] [place], 4-24 DX:E11.9 ity of Disposable, 00:00: [place] (BD 00 Medical ULTRAFINE Branch III MINI PEN) 31 gauge x 3/16" Ndle blood sugar 2019-0 Yes Use as Univ ers diagnostic 4-24 directed, ity of (ONETOUCH 00:00: TID, [place] VERIO) 00 DX:E11.9 Medical strip Branch lancets 2019-0 Yes Use as Univers (ONETOUCH 4-24 directed, ity o f DELICA 00:00: TID, [place] LANCETS) 30 DX:E11.9 Medi dev gauge Misc Branch Insulin 2019-0 Yes [id number] BID, [facility] [place], 4-24 DX:E11.9 ity of Disposable, 00:00: [place] (BD 00 Medical ULTRAFINE Branch III MINI PEN) 31 gauge x 3/16" Ndle blood sugar 2019-0 Yes Use as Univ ers diagnostic 4-24 directed, ity of (ONETOUCH 00:00: TID, [place] VERIO) 00 DX:E11.9 Medical strip Branch lancets 2019-0 Yes Use as Univers (ONETOUCH 4-24 directed, ity o f DELICA 00:00: TID, [place] LANCETS) 30 00 DX:E11.9 Medi dev gauge Misc Branch Insulin 2019-0 Yes [id number] BID, [facility] [place], 4-24 DX:E11.9 ity of Disposable, 00:00: [place] (BD 00 Medical ULTRAFINE Branch III MINI PEN) 31 gauge x 3/16" Ndle blood sugar 2019-0 Yes Use as Univ ers diagnostic 4-24 directed, ity of (ONETOUCH 00:00: TID, [place] VERIO) 00 DX:E11.9 Medical strip Branch lancets 2019-0 Yes Use as [facility] (ONETOUCH 4-24 directed, ity o f DELICA 00:00: TID, [place] LANCETS) 30 00 DX:E11.9 Medi dev gauge Misc Branch Insulin 2019-0 Yes [id number] BID, [facility] [place], 4-24 DX:E11.9 ity of Disposable, 00:00: [place] (BD 00 Medical ULTRAFINE Branch III MINI PEN) 31 gauge x 3/16" Ndle blood sugar 2019-0 Yes Use as Univ ers diagnostic 4-24 directed, ity of (ONETOUCH 00:00: TID, [place] VERIO) 00 DX:E11.9 Medical strip Branch lancets 2019-0 Yes Use as Univers (ONETOUCH 4-24 directed, ity o f DELICA 00:00: TID, [place] LANCETS) 30 00 DX:E11.9 Medi dev gauge Misc Branch Insulin 2019-0 Yes [id number] BID, [facility] [place], 4-24 DX:E11.9 ity of Disposable, 00:00: [place] (BD 00 Medical ULTRAFINE Branch III MINI PEN) 31 gauge x 3/16" Ndle blood sugar 2019-0 Yes Use as Univ ers diagnostic 4-24 directed, ity of (ONETOUCH 00:00: TID, [place] VERIO) 00 DX:E11.9 Medical strip Branch lancets 2019-0 Yes Use as Univers (ONETOUCH 4-24 directed, ity o f DELICA 00:00: TID, [place] LANCETS) 30 00 DX:E11.9 Medi dev gauge Misc Branch Insulin 2019-0 Yes [id number] BID, [facility] [place], 4-24 DX:E11.9 ity of Disposable, 00:00: [place] (BD 00 Medical ULTRAFINE Branch III MINI PEN) 31 gauge x 3/16" Ndle blood sugar 2019-0 Yes Use as Univ ers diagnostic 4-24 directed, ity of (ONETOUCH 00:00: TID, [place] VERIO) 00 DX:E11.9 Medical strip Branch lancets 2019-0 Yes Use as Univers (ONETOUCH 4-24 directed, ity o f DELICA 00:00: TID, [place] LANCETS) 30 00 DX:E11.9 Medi dev gauge Misc Branch Insulin 2019-0 Yes [id number] BID, [facility] [place], 4-24 DX:E11.9 ity of Disposable, 00:00: [place] (BD 00 Medical ULTRAFINE Branch III MINI PEN) 31 gauge x 3/16" Ndle blood sugar 2019-0 Yes Use as Univ ers diagnostic 4-24 directed, ity of (ONETOUCH 00:00: TID, [place] VERIO) 00 DX:E11.9 Medical strip Branch lancets 2019-0 Yes Use as [facility] (ONETOUCH 4-24 directed, ity o f DELICA 00:00: TID, [place] LANCETS) 30 00 DX:E11.9 Medi dev gauge Misc Branch Insulin 2019-0 Yes [id number] BID, [facility] [place], 4-24 DX:E11.9 ity of Disposable, 00:00: [place] (BD 00 Medical ULTRAFINE Branch III MINI PEN) 31 gauge x 3/16" Ndle blood sugar 2019- Yes Use as Univ ers diagnostic 4-24 directed, ity of (ONETOUCH 00:00: TID, [place] VERIO) 00 DX:E11.9 Medical strip Branch lancets Yes Use as Univers (ONETOUCH 4-24 directed, ity o f DELICA 00:00: TID, [place] LANCETS) 30 DX:E11.9 Medi dev gauge Misc Branch Insulin 2018- Yes [id number] BID, [facility] [place], 4-24 DX:E11.9 ity of Disposable, 00:00: [place] (BD 00 Medical ULTRAFINE Branch III MINI PEN) 31 gauge x 3/16" Ndle blood sugar 2018- Yes Use as Univ ers diagnostic 4-24 directed, ity of (ONETOUCH 00:00: TID, [place] VERIO) 00 DX:E11.9 Medical strip Branch lancets 2018- Yes Use as Univers (ONETOUCH 4-24 directed, ity o f DELICA 00:00: TID, [place] LANCETS) 30 00 DX:E11.9 Medi dev gauge Misc Branch Insulin 2018-0 Yes Uncontrolle BID, [facility] [place], 4-24 d type 2 DX:E11.9 ity of Disposable, 00:00: [place] (BD 00 mellitus Medical ULTRAFINE without Branch III MINI complicatio PEN) 31 n, without gauge x long-term 3/16" Ndle current use of insulin blood sugar 2018- Yes Use as Univ ers diagnostic 4-24 directed, ity of (ONETOUCH 00:00: TID, [place] VERIO) 00 DX:E11.9 Medical strip Branch lancets 2018- Yes Use as Univers (ONETOUCH 4-24 directed, ity o f DELICA 00:00: TID, [place] LANCETS) 30 00 DX:E11.9 Medi dev gauge Misc Branch Insulin 2018-0 Yes Uncontrolle BID, [facility] [place], 4-24 d type 2 DX:E11.9 ity of Disposable, 00:00: [place] (BD 00 mellitus Medical ULTRAFINE without Branch III MINI complicatio PEN) 31 n, without gauge x long-term 12/08" Ndle current use of insulin blood sugar Yes Use as Univ ers diagnostic 4-24 directed, ity of (ONETOUCH 00:00: TID, [place] VERIO) 00 DX:E11.9 Medical strip Branch lancets Yes Use as Univers (ONETOUCH 4-24 directed, ity o f DELICA 00:00: TID, [place] LANCETS) 30 00 DX:E11.9 Medi dev gauge Misc Branch LOVAZA, Yes Dyslipidemi 2g Take 2 U nivers omega-3-aci 3-27 a capsules ity of d ethyl 00:00: [place] mouth 2 [place] esters, 1 00 (two) Medical gram times Branch capsule daily. LOVAZA, Yes Dyslipidemi 2g Take 2 U nivers omega-3-aci 3-27 a capsules ity of d ethyl 00:00: [place] 2 [place] esters[place] 1 00 (two) Medical gram times Branch capsule daily. LOVAZA, 2020- No [id number] 2g Take 2 Un jan[place] omega-3-aci 3-27 10-01 capsules ity of d ethyl 00:00: 00:00 by mouth 2 [place] esters, 1 00 :00 (two) Medical gram times Branch capsule daily. Blood-Gluco Yes Use to Univ ers se Meter 3-08 check ity of Misc 00:00: blood [place] 00 glucose 3X Medical daily. Dx Branch Code E11.9 Blood-Gluco Yes Use to Univ ers se Meter 3-08 check ity of Misc 00:00: blood [place] 00 glucose 3X Medical daily. Dx Branch Code E11.9 Blood-Gluco 2016- Yes Use to Univ ers se Meter 3-08 check ity of Misc 00:00: blood [place] 00 glucose 3X Medical daily. Dx Branch Code E11.9 Blood-Gluco 2016- Yes Use to Univ ers se Meter 3-08 check ity of Misc 00:00: blood [place] 00 glucose 3X Medical daily. Dx Branch Code E11.9 Blood-Gluco 2016- Yes Use to Univ ers se Meter 3-08 check ity of Misc 00:00: blood [place] 00 glucose 3X Medical daily. Dx Branch Code E11.9 Blood-Gluco 2016- Yes Use to Univ ers se Meter 3-08 check ity of Misc 00:00: blood [place] 00 glucose 3X Medical daily. Dx Branch Code E11.9 Blood-Gluco 2016- Yes Use to Univ ers se Meter 3-08 check ity of Misc 00:00: blood [place] 00 glucose 3X Medical daily. Dx Branch Code E11.9 Blood-Gluco 2016- Yes Use to Univ ers se Meter 3-08 check ity of Misc 00:00: blood [place] 00 glucose 3X Medical daily. Dx Branch Code E11.9 Blood-Gluco 2016- Yes Use to Univ ers se Meter 3-08 check ity of Misc 00:00: blood [place] 00 glucose 3X Medical daily. Dx Branch Code E11.9 Blood-Gluco 2016- Yes Use to Univ ers se Meter 3-08 check ity of Misc 00:00: blood [place] 00 glucose 3X Medical daily. Dx Branch Code E11.9 Blood-Gluco Yes Use to Univ ers se Meter 3-08 check ity of Misc 00:00: blood [place] 00 glucose 3X Medical daily. Dx Branch Code E11.9 Blood-Gluco 2016- Yes Use to Univ ers se Meter 3-08 check ity of Misc 00:00: blood [place] 00 glucose 3X Medical daily. Dx Branch Code E11.9 Blood-Gluco 2016- Yes Use to Univ ers se Meter 3-08 check ity of Misc 00:00: blood [place] 00 glucose 3X Medical daily. Dx Branch Code E11.9 Blood-Gluco 2016- Yes Use to Univ ers se Meter 3-08 check ity of Misc 00:00: blood [place] 00 glucose 3X Medical daily. Dx Branch Code E11.9 Blood-Gluco 2017-0 Yes Use to Univ ers se Meter 3-08 check ity of Misc 00:00: blood [place] 00 glucose 3X Medical daily. Dx Branch Code E11.9 Blood-Gluco 2016- Yes Use to Univ ers se Meter 3-08 check ity of Misc 00:00: blood [place] 00 glucose 3X Medical daily. Dx Branch Code E11.9 Blood-Gluco 2016- Yes Use to Univ ers se Meter 3-08 check ity of Misc 00:00: blood [place] 00 glucose 3X Medical daily. Dx Branch Code E11.9 Blood-Gluco 2017-0 Yes Use to Univ ers se Meter 3-08 check ity of Misc 00:00: blood [place] 00 glucose 3X Medical daily. Dx Branch Code E11.9 Blood-Gluco 2016-0 Yes Use to Univ ers se Meter 3-08 check ity of Misc 00:00: blood [place] 00 glucose 3X Medical daily. Dx Branch Code E11.9 Blood-Gluco 2016- Yes Use to Univ ers se Meter 3-08 check ity of Misc 00:00: blood [place] 00 glucose 3X Medical daily. Dx Branch Code E11.9 Blood-Gluco 2016- Yes Use to Univ ers se Meter 3-08 check ity of Misc 00:00: blood [place] 00 glucose 3X Medical daily. Dx Branch Code E11.9 Blood-Gluco 2016- Yes Use to Univ ers se Meter 3-08 check ity of Misc 00:00: blood [place] 00 glucose 3X Medical daily. Dx Branch Code E11.9 Blood-Gluco 2016- Yes Use to Univ ers se Meter 3-08 check ity of Misc 00:00: blood [place] 00 glucose 3X Medical daily. Dx Branch Code E11.9 Blood-Gluco 2016-0 Yes Use to Univ ers se Meter 3-08 check ity of Misc 00:00: blood [place] 00 glucose 3X Medical daily. Dx Branch Code E11.9 Blood-Gluco 2016- Yes Use to Univ ers se Meter 3-08 check ity of Misc 00:00: blood [place] 00 glucose 3X Medical daily. Dx Branch Code E11.9 Blood-Gluco 2016-0 Yes Use to Univ ers se Meter 3-08 check ity of Misc 00:00: blood [place] 00 glucose 3X Medical daily. Dx Branch Code E11.9 Blood-Gluco 2017-0 Yes Use to Univ ers se Meter 3-08 check ity of Misc 00:00: blood [place] 00 glucose 3X Medical daily. Dx Branch Code E11.9 Blood-Gluco 2016-0 Yes Use to Univ ers se Meter 3-08 check ity of Misc 00:00: blood [place] 00 glucose 3X Medical daily. Dx Branch Code E11.9 Blood-Gluco 2017-0 Yes Use to Univ ers se Meter 3-08 check ity of Misc 00:00: blood 00 glucose 3X Medical daily. Dx Branch Code E11.9 Blood-Gluco 2017-0 Yes Use to Univ ers se Meter 3-08 check ity of Misc 00:00: blood 00 glucose 3X Medical daily. Dx Branch Code E11.9 Blood-Gluco 2017-0 Yes Use to Univ ers se Meter 3-08 check ity of Misc 00:00: blood 00 glucose 3X Medical daily. Dx Branch Code E11.9 Blood-Gluco 2017-0 Yes Use to Univ ers se Meter 3-08 check ity of Misc 00:00: blood 00 glucose 3X Medical daily. Dx Branch Code E11.9 Blood-Gluco 2017-0 Yes Use to Univ ers se Meter 3-08 check ity of Misc 00:00: [place] 00 glucose 3X Medical daily. Dx Branch Code E11.9 Immunizations Ordered Filled Immunization Date Status Comments [facility] e Immunization Name Name Influenza Virus 2021-07-01 Completed Universit [facility] of Vaccine 00:00:00 [facility] Influenza Virus 2021-07-01 Completed Universit y of Vaccine 00:00:00 [facility] Influenza Virus 2021-07-01 Completed Universit y of Vaccine 00:00:00 [facility] Influenza Virus 2021-07-01 Completed Universit y of Vaccine 00:00:00 [facility] Influenza Virus 2021-07-01 Completed Universit y of Vaccine 00:00:00 [facility] Influenza Virus 2021-07-01 Completed Universit y of Vaccine 00:00:00 [facility] Influenza Virus 2021-07-01 Completed Universit y of Vaccine 00:00:00 [facility] Influenza Virus 2021-07-01 Completed Universit y of Vaccine 00:00:00 [facility] Influenza Virus 2021-07-01 Completed Universit y of Vaccine 00:00:00 [facility] Influenza Virus 2021-07-01 Completed Universit y of Vaccine 00:00:00 [facility] Influenza Virus 2021-07-01 Completed Universit y of Vaccine 00:00:00 [facility] Influenza Virus 2021-07-01 Completed Universit y of Vaccine 00:00:00 [facility] Influenza Virus 2021-07-01 Completed Universit y of Vaccine 00:00:00 [facility] Influenza Virus 2021-07-01 Completed Universit y of Vaccine 00:00:00 [facility] Influenza Virus 2021-07-01 Completed Universit y of Vaccine 00:00:00 [facility] Influenza Virus 2021-07-01 Completed Universit y of Vaccine 00:00:00 [facility] Influenza Virus 2021-07-01 Completed Universit y of Vaccine 00:00:00 [facility] Influenza Virus 2021-07-01 Completed Universit y of Vaccine 00:00:00 [facility] Influenza Virus 2021-07-01 Completed Universit y of Vaccine 00:00:00 [facility] Influenza Virus 2021-07-01 Completed Universit y of Vaccine 00:00:00 [facility] Influenza Virus 2021-07-01 Completed Universit y of Vaccine 00:00:00 [facility] Influenza Virus 2021-07-01 Completed Universit y of Vaccine 00:00:00 [facility] Influenza Virus 2021-07-01 Completed Universit y of Vaccine 00:00:00 [facility] Influenza Virus 2021-07-01 Completed Universit y of Vaccine 00:00:00 [facility] Influenza Virus 2021-07-01 Completed Universit y of Vaccine 00:00:00 [facility] Influenza Virus 2021-07-01 Completed Universit y of Vaccine 00:00:00 [facility] Influenza Virus 2021-07-01 Completed Universit y of Vaccine 00:00:00 [facility] Influenza Virus 2021-07-01 Completed Universit y of Vaccine 00:00:00 [facility] Influenza Virus 2021-07-01 Completed Universit y of Vaccine 00:00:00 [facility] Influenza Virus 2021-07-01 Completed Universit y of Vaccine 00:00:00 [facility] Influenza Virus 2021-07-01 Completed Universit y of Vaccine 00:00:00 [facility] SARS-COV-2 COVID-19 2021-01-21 Completed Unive rsity of MODERNA VACCINE 00:00:00 [facility] SARS-COV-2 COVID-19 2021-01-21 Completed Unive rsity of MODERNA VACCINE 00:00:00 [facility] SARS-COV-2 COVID-19 2021-01-21 Completed Unive rsity of MODERNA VACCINE 00:00:00 [facility] SARS-COV-2 COVID-19 2021-01-21 Completed Unive rsity of MODERNA VACCINE 00:00:00 [place] [facility] SARS-COV-2 COVID-19 2021-01-21 Completed Unive rsity of MODERNA VACCINE 00:00:00 [place] [facility] ical [facility] SARS-COV-2 COVID-19 2021-01-21 Completed Unive rsity of MODERNA 12+ YRS 00:00:00 [place] Med ical VACCINE Branch SARS-COV-2 COVID-19 2021-01-21 Completed Unive rsity of MODERNA 12+ YRS 00:00:00 [place] Med ical VACCINE Branch SARS-COV-2 COVID-19 2021-01-21 Completed Unive rsity of MODERNA 12+ YRS 00:00:00 [place] Med ical VACCINE Branch SARS-COV-2 COVID-19 2021-01-21 Completed Unive rsity of MODERNA 12+ YRS 00:00:00 [place] Med ical VACCINE Branch SARS-COV-2 COVID-19 2021-01-21 Completed Unive rsity of MODERNA 12+ YRS 00:00:00 [place] Med ical VACCINE Branch SARS-COV-2 COVID-19 2021-01-21 Completed Unive rsity of MODERNA 12+ YRS 00:00:00 [place] Med ical VACCINE Branch SARS-COV-2 COVID-19 2021-01-21 Completed Unive rsity of MODERNA 12+ YRS 00:00:00 [place] Med ical VACCINE Branch SARS-COV-2 COVID-19 2021-01-21 Completed Unive rsity of MODERNA 12+ YRS 00:00:00 [place] Med ical VACCINE Branch SARS-COV-2 COVID-19 2021-01-21 Completed Unive rsity of MODERNA 12+ YRS 00:00:00 [place] Med ical VACCINE Branch SARS-COV-2 COVID-19 2021-01-21 Completed Unive rsity of MODERNA 12+ YRS 00:00:00 [place] Med ical VACCINE Branch SARS-COV-2 COVID-19 2021-01-21 Completed Unive rsity of MODERNA 12+ YRS 00:00:00 [place] Med ical VACCINE Branch SARS-COV-2 COVID-19 2021-01-21 Completed Unive rsity of MODERNA 12+ YRS 00:00:00 [place] Med ical VACCINE Branch SARS-COV-2 COVID-19 2021-01-21 Completed Unive rsity of MODERNA 12+ YRS 00:00:00 [place] Med ical VACCINE Branch SARS-COV-2 COVID-19 2021-01-21 Completed Unive rsity of MODERNA 12+ YRS 00:00:00 [place] Med ical VACCINE Branch SARS-COV-2 COVID-19 2021-01-21 Completed Unive rsity of MODERNA 12+ YRS 00:00:00 [place] Med ical VACCINE Branch SARS-COV-2 COVID-19 2021-01-21 Completed Unive rsity of MODERNA 12+ YRS 00:00:00 [place] Med ical VACCINE Branch SARS-COV-2 COVID-19 2021-01-21 Completed Unive rsity of MODERNA 12+ YRS 00:00:00 [place] Med ical VACCINE Branch SARS-COV-2 COVID-19 2021-01-21 Completed Unive rsity of MODERNA 12+ YRS 00:00:00 [place] Med ical VACCINE Branch SARS-COV-2 COVID-19 2021-01-21 Completed Unive rsity of MODERNA 12+ YRS 00:00:00 [place] Med ical VACCINE Branch SARS-COV-2 COVID-19 2021-01-21 Completed Unive rsity of MODERNA 12+ YRS 00:00:00 [place] Med ical VACCINE Branch SARS-COV-2 COVID-19 2021-01-21 Completed Unive rsity of MODERNA 12+ YRS 00:00:00 [place] Med ical VACCINE Branch SARS-COV-2 COVID-19 2021-01-21 Completed Unive rsity of MODERNA 12+ YRS 00:00:00 [place] Med ical VACCINE Branch SARS-COV-2 COVID-19 2021-01-21 Completed Unive rsity of MODERNA 12+ YRS 00:00:00 [place] Med ical VACCINE Branch SARS-COV-2 COVID-19 2021-01-21 Completed Unive rsity of MODERNA 12+ YRS 00:00:00 [place] Med ical VACCINE Branch SARS-COV-2 COVID-19 2021-01-21 Completed Unive rsity of MODERNA 12+ YRS 00:00:00 [place] Med ical VACCINE Branch SARS-COV-2 COVID-19 2021-01-21 Completed Unive rsity of MODERNA 12+ YRS 00:00:00 [place] Med ical VACCINE Branch SARS-COV-2 COVID-19 2021-01-21 Completed Unive rsity of MODERNA 12+ YRS 00:00:00 [place] Med ical VACCINE Branch SARS-COV-2 COVID-19 2021-01-21 Completed Unive rsity of MODERNA 12+ YRS 00:00:00 [place] Med ical VACCINE Branch SARS-COV-2 COVID-19 2020-09-22 Completed Unive rsity of MODERNA VACCINE 00:00:00 [place] [facility] ical Branch SARS-COV-2 COVID-19 2020-09-22 Completed Unive rsity of MODERNA VACCINE 00:00:00 [place] [facility] ical Branch SARS-COV-2 COVID-19 2020-09-22 Completed Unive rsity of MODERNA VACCINE 00:00:00 [place] [facility] ical Branch SARS-COV-2 COVID-19 2020-09-22 Completed Unive rsity of MODERNA VACCINE 00:00:00 [place] [facility] ical Branch SARS-COV-2 COVID-19 2020-09-22 Completed Unive rsity of MODERNA VACCINE 00:00:00 [place] [facility] ical Branch SARS-COV-2 COVID-19 2020-09-22 Completed Unive rsity of MODERNA 12+ YRS 00:00:00 [place] Med ical VACCINE Branch SARS-COV-2 COVID-19 2020-09-22 Completed Unive rsity of MODERNA 12+ YRS 00:00:00 [place] Med ical VACCINE Branch SARS-COV-2 COVID-19 2020-09-22 Completed Unive rsity of MODERNA 12+ YRS 00:00:00 [place] Med ical VACCINE Branch SARS-COV-2 COVID-19 2020-09-22 Completed Unive rsity of MODERNA 12+ YRS 00:00:00 [place] Med ical VACCINE Branch SARS-COV-2 COVID-19 2020-09-22 Completed Unive rsity of MODERNA 12+ YRS 00:00:00 [place] Med ical VACCINE Branch SARS-COV-2 COVID-19 2020-09-22 Completed Unive rsity of MODERNA 12+ YRS 00:00:00 [place] Med ical VACCINE Branch SARS-COV-2 COVID-19 2020-09-22 Completed Unive rsity of MODERNA 12+ YRS 00:00:00 [place] Med ical VACCINE Branch SARS-COV-2 COVID-19 2020-09-22 Completed Unive rsity of MODERNA 12+ YRS 00:00:00 [place] Med ical VACCINE Branch SARS-COV-2 COVID-19 2020-09-22 Completed Unive rsity of MODERNA 12+ YRS 00:00:00 [place] Med ical VACCINE Branch SARS-COV-2 COVID-19 2020-09-22 Completed Unive rsity of MODERNA 12+ YRS 00:00:00 [place] Med ical VACCINE Branch SARS-COV-2 COVID-19 2020-09-22 Completed Unive rsity of MODERNA 12+ YRS 00:00:00 [place] Med ical VACCINE Branch SARS-COV-2 COVID-19 2020-09-22 Completed Unive rsity of MODERNA 12+ YRS 00:00:00 [place] Med ical VACCINE Branch SARS-COV-2 COVID-19 2020-09-22 Completed Unive rsity of MODERNA 12+ YRS 00:00:00 [place] Med ical VACCINE Branch SARS-COV-2 COVID-19 2020-09-22 Completed Unive rsity of MODERNA 12+ YRS 00:00:00 [place] Med ical VACCINE Branch SARS-COV-2 COVID-19 2020-09-22 Completed Unive rsity of MODERNA 12+ YRS 00:00:00 [place] Med ical VACCINE Branch SARS-COV-2 COVID-19 2020-09-22 Completed Unive rsity of MODERNA 12+ YRS 00:00:00 [place] Med ical VACCINE Branch SARS-COV-2 COVID-19 2020-09-22 Completed Unive rsity of MODERNA 12+ YRS 00:00:00 [place] Med ical VACCINE Branch SARS-COV-2 COVID-19 2020-09-22 Completed Unive rsity of MODERNA 12+ YRS 00:00:00 [place] Med ical VACCINE Branch SARS-COV-2 COVID-19 2020-09-22 Completed Unive rsity of MODERNA 12+ YRS 00:00:00 [place] Med ical VACCINE Branch SARS-COV-2 COVID-19 2020-09-22 Completed Unive rsity of MODERNA 12+ YRS 00:00:00 [place] Med ical VACCINE Branch SARS-COV-2 COVID-19 2020-09-22 Completed Unive rsity of MODERNA 12+ YRS 00:00:00 [place] Med ical VACCINE Branch SARS-COV-2 COVID-19 2020-09-22 Completed [facility] of MODERNA 12+ YRS 00:00:00 [facility] VACC[facility] SARS-COV-2 COVID-19 2020-09-22 Completed [facility] of MODERNA 12+ YRS 00:00:00 [facility] VACCINE [facility] SARS-COV-2 COVID-19 2020-09-22 Completed [facility] rs[facility] of MODERNA 12+ YRS 00:00:00 [facility] VACCINE [facility] SARS-COV-2 COVID-19 2020-09-22 Completed [facility]ive rsity of MODERNA 12+ YRS 00:00:00 [facility] VACCINE [facility] SARS-COV-2 COVID-19 2020-09-22 Completed [facility]ive rsity of MODERNA 12+ YRS 00:00:00 [facility] ical VACCINE Branch SARS-COV-2 COVID-19 2020-09-22 Completed Unive rsity of MODERNA 12+ YRS 00:00:00 [facility] ical VACCINE Branch SARS-COV-2 COVID-19 2020-09-22 Completed Unive rsity of MODERNA 12+ YRS 00:00:00 [facility] ical VACCINE Branch Influenza Virus 2020-06-12 Completed Universit y of Vaccine Quad .5 mL 00:00:00 [facility] 6+ MO [facility] Influenza Virus 2020-06-12 Completed [facility]it y of Vaccine Quad .5 mL 00:00:00 [facility] 6+ MO [facility] Influenza Virus 2020-06-12 Completed [facility]it y of Vaccine Quad .5 mL 00:00:00 [facility] 6+ MO [facility] Influenza Virus 2020-06-12 Completed [facility]it y of Vaccine Quad .5 mL 00:00:00 [facility] 6+ MO [facility] Influenza Virus 2020-06-12 Completed [facility]it y of Vaccine Quad .5 mL 00:00:00 [facility] 6+ MO [facility] Influenza Virus 2020-06-12 Completed [facility]it y of Vaccine Quad .5 mL 00:00:00 [facility] 6+ MO [facility] Influenza Virus 2020-06-12 Completed [facility]it y of Vaccine Quad .5 mL 00:00:00 [facility] 6+ MO [facility] Influenza Virus 2020-06-12 Completed [facility]it y of Vaccine Quad .5 mL 00:00:00 [facility] 6+ MO [facility] Influenza Virus 2020-06-12 Completed [facility]it y of Vaccine Quad .5 mL 00:00:00 [facility] 6+ MO [facility] Influenza Virus 2020-06-12 Completed [facility]it y of Vaccine Quad .5 mL 00:00:00 [facility] 6+ MO [facility] Influenza Virus 2020-06-12 Completed [facility]it y of Vaccine Quad .5 mL 00:00:00 [facility] 6+ MO [facility] Influenza Virus 2020-06-12 Completed [facility]it y of Vaccine Quad .5 mL 00:00:00 [facility] 6+ MO [facility] Influenza Virus 2020-06-12 Completed [facility]it y of Vaccine Quad .5 mL 00:00:00 [facility] 6+ MO [facility] Influenza Virus 2020-06-12 Completed [facility]it y of Vaccine Quad .5 mL 00:00:00 [facility] 6+ MO [facility] Influenza Virus 2020-06-12 Completed [facility]it y of Vaccine Quad .5 mL 00:00:00 [facility] 6+ MO Branch Influenza Virus 2020-06-12 Completed [facility]it y of Vaccine Quad .5 mL 00:00:00 [facility] 6+ MO [facility] Influenza Virus 2020-06-12 Completed [facility]it y of Vaccine Quad .5 mL 00:00:00 [facility] 6+ MO Branch Influenza Virus 2020-06-12 Completed [facility]it y of Vaccine Quad .5 mL 00:00:00 [facility] 6+ MO [facility] Influenza Virus 2020-06-12 Completed [facility]it y of Vaccine Quad .5 mL 00:00:00 [facility] 6+ MO Branch Influenza Virus 2020-06-12 Completed [facility]it y of Vaccine Quad .5 mL 00:00:00 [facility] 6+ MO [facility] Influenza Virus 2020-06-12 Completed [facility]it y of Vaccine Quad .5 mL 00:00:00 [facility] 6+ MO [facility] Influenza Virus 2020-06-12 Completed [facility]it y of Vaccine Quad .5 mL 00:00:00 [facility] 6+ MO [facility] Influenza Virus 2020-06-12 Completed [facility]it y of Vaccine Quad .5 mL 00:00:00 [facility] 6+ MO [facility] Influenza Virus 2020-06-12 Completed [facility]it y of Vaccine Quad .5 mL 00:00:00 [facility] 6+ MO [facility] Influenza Virus 2020-06-12 Completed [facility]it y of Vaccine Quad .5 mL 00:00:00 [facility] 6+ MO [facility] Influenza Virus 2020-06-12 Completed [facility]it y of Vaccine Quad .5 mL 00:00:00 [facility] 6+ MO Branch Influenza Virus 2020-06-12 Completed [facility]it y of Vaccine Quad .5 mL 00:00:00 [facility] 6+ MO [facility] Influenza Virus 2020-06-12 Completed [facility]it y of Vaccine Quad .5 mL 00:00:00 [facility] 6+ MO [facility] Influenza Virus 2020-06-12 Completed [facility]it y of Vaccine Quad .5 mL 00:00:00 [facility] 6+ MO [facility] Influenza Virus 2020-06-12 Completed [facility]it y of Vaccine Quad .5 mL 00:00:00 [facility] 6+ MO [facility] Influenza Virus 2020-06-12 Completed [facility]it y of Vaccine Quad .5 mL 00:00:00 [facility] 6+ MO [facility] Influenza Virus 2020-06-12 Completed [facility]it y of Vaccine Quad .5 mL 00:00:00 [facility] 6+ MO Branch Influenza Virus 2020-06-12 Completed [facility]it y of Vaccine Quad .5 mL 00:00:00 [facility] 6+ MO Branch Td 2019-07-16 Completed University of 00:00:00 [facility] Td 2019-07-16 Completed University of 00:00:00 [facility] Td 2019-07-16 Completed University of 00:00:00 [facility] Td 2019-07-16 Completed University of 00:00:00 [facility] Td 2019-07-16 Completed University of 00:00:00 [facility] Td 2019-07-16 Completed University of 00:00:00 [facility] Td 2019-07-16 Completed University of 00:00:00 [facility] Td 2019-07-16 Completed University of 00:00:00 [facility] Td 2019-07-16 Completed University of 00:00:00 [facility] Td 2019-07-16 Completed University of 00:00:00 [facility] Td 2019-07-16 Completed University of 00:00:00 [facility] Td 2019-07-16 Completed University of 00:00:00 [facility] Td 2019-07-16 Completed University of 00:00:00 [facility] Td 2019-07-16 Completed University of 00:00:00 [facility] Td 2019-07-16 Completed University of 00:00:00 [facility] Td 2019-07-16 Completed University of 00:00:00 [facility] Td 2019-07-16 Completed University of 00:00:00 [facility] Branch Td 2019-07-16 Completed University of 00:00:00 [facility] Td 2019-07-16 Completed University of 00:00:00 [facility] Td 2019-07-16 Completed University of 00:00:00 [facility] Td 2019-07-16 Completed University of 00:00:00 [facility] Branch Td 2019-07-16 Completed University of 00:00:00 [facility] Td 2019-07-16 Completed University of 00:00:00 [facility] Td 2019-07-16 Completed University of 00:00:00 [facility] Td 2019-07-16 Completed University of 00:00:00 [facility] Td 2019-07-16 Completed University of 00:00:00 [facility] Branch Td 2019-07-16 Completed University of 00:00:00 [facility] Branch Td 2019-07-16 Completed University of 00:00:00 [facility] TD, NOS 2019-07-16 Completed University of 00:00:00 [facility] TD, NOS 2019-07-16 Completed University of 00:00:00 [facility] TD, NOS 2019-07-16 Completed University of 00:00:00 [facility] TD, NOS 2019-07-16 Completed University of 00:00:00 [facility] TD, NOS 2019-07-16 Completed University of 00:00:00 [facility] Influenza Virus 2019-06-14 Completed Universit y of Vaccine 00:00:00 [facility] Influenza Virus 2019-06-14 Completed Universit y of Vaccine 00:00:00 [facility] Influenza Virus 2019-06-14 Completed Universit y of Vaccine 00:00:00 [facility] Influenza Virus 2019-06-14 Completed Universit y of Vaccine 00:00:00 [facility] Influenza Virus 2019-06-14 Completed Universit y of Vaccine 00:00:00 [facility] Influenza Virus 2019-06-14 Completed Universit y of Vaccine 00:00:00 [facility] Influenza Virus 2019-06-14 Completed Universit y of Vaccine 00:00:00 [facility] Influenza Virus 2019-06-14 Completed Universit y of Vaccine 00:00:00 [facility] Influenza Virus 2019-06-14 Completed Universit y of Vaccine 00:00:00 [facility] Influenza Virus 2019-06-14 Completed Universit y of Vaccine 00:00:00 [facility] Influenza Virus 2019-06-14 Completed Universit y of Vaccine 00:00:00 [facility] Influenza Virus 2019-06-14 Completed Universit y of Vaccine 00:00:00 [facility] Influenza Virus 2019-06-14 Completed Universit y of Vaccine 00:00:00 [facility] Influenza Virus 2019-06-14 Completed Universit y of Vaccine 00:00:00 [facility] Influenza Virus 2019-06-14 Completed Universit y of Vaccine 00:00:00 [facility] Influenza Virus 2019-06-14 Completed Universit y of Vaccine 00:00:00 [facility] Influenza Virus 2019-06-14 Completed Universit y of Vaccine 00:00:00 [facility] Influenza Virus 2019-06-14 Completed Universit y of Vaccine 00:00:00 [facility] Influenza Virus 2019-06-14 Completed Universit y of Vaccine 00:00:00 [facility] Influenza Virus 2019-06-14 Completed Universit y of Vaccine 00:00:00 [facility] Influenza Virus 2019-06-14 Completed Universit y of Vaccine 00:00:00 [facility] Influenza Virus 2019-06-14 Completed Universit y of Vaccine 00:00:00 [facility] Influenza Virus 2019-06-14 Completed Universit y of Vaccine 00:00:00 [facility] Influenza Virus 2019-06-14 Completed Universit y of Vaccine 00:00:00 [facility] Influenza Virus 2019-06-14 Completed Universit y of Vaccine 00:00:00 [facility] Influenza Virus 2019-06-14 Completed Universit y of Vaccine 00:00:00 [facility] Influenza Virus 2019-06-14 Completed Universit y of Vaccine 00:00:00 [facility] Influenza Virus 2019-06-14 Completed Universit y of Vaccine 00:00:00 [facility] Influenza Virus 2019-06-14 Completed Universit y of Vaccine 00:00:00 [facility] Influenza Virus 2019-06-14 Completed Universit y of Vaccine 00:00:00 [facility] Influenza Virus 2019-06-14 Completed Universit y of Vaccine 00:00:00 [facility] Influenza Virus 2019-06-14 Completed Universit y of Vaccine 00:00:00 [facility] Influenza Virus 2019-06-14 Completed Universit y of Vaccine 00:00:00 [facility] Pneumococcal 2018-10-20 Completed University o f Polysaccharide, 00:00:00 [place] [facility] PPSV23 (PNEUMOVAX) Branch Pneumococcal 2018-10-20 Completed University o f Polysaccharide, 00:00:00 [facility] PPSV23 (PNEUMOVAX) Branch Pneumococcal 2018-10-20 Completed University o f Polysaccharide, 00:00:00 [facility] PPSV23 (PNEUMOVAX) Branch Pneumococcal 2018-10-20 Completed University o f Polysaccharide, 00:00:00 [facility] PPSV23 (PNEUMOVAX) Branch Pneumococcal 2018-10-20 Completed University o f Polysaccharide, 00:00:00 [facility] PPSV23 (PNEUMOVAX) Branch Pneumococcal 2018-10-20 Completed University o f Polysaccharide, 00:00:00 [facility] PPSV23 (PNEUMOVAX) Branch Pneumococcal 2018-10-20 Completed University o f Polysaccharide, 00:00:00 [facility] PPSV23 (PNEUMOVAX) Branch Pneumococcal 2018-10-20 Completed University o f Polysaccharide, 00:00:00 [facility] PPSV23 (PNEUMOVAX) Branch Pneumococcal 2018-10-20 Completed University o f Polysaccharide, 00:00:00 [facility] PPSV23 (PNEUMOVAX) Branch Pneumococcal 2018-10-20 Completed University o f Polysaccharide, 00:00:00 [facility] PPSV23 (PNEUMOVAX) Branch Pneumococcal 2018-10-20 Completed University o f Polysaccharide, 00:00:00 [facility] PPSV23 (PNEUMOVAX) Branch Pneumococcal 2018-10-20 Completed University o f Polysaccharide, 00:00:00 [facility] PPSV23 (PNEUMOVAX) Branch Pneumococcal 2018-10-20 Completed University o f Polysaccharide, 00:00:00 [facility] PPSV23 (PNEUMOVAX) Branch Pneumococcal 2018-10-20 Completed University o f Polysaccharide, 00:00:00 [facility] PPSV23 (PNEUMOVAX) Branch Pneumococcal 2018-10-20 Completed University o f Polysaccharide, 00:00:00 [facility] PPSV23 (PNEUMOVAX) Branch Pneumococcal 2018-10-20 Completed University o f Polysaccharide, 00:00:00 [facility] PPSV23 (PNEUMOVAX) Branch Pneumococcal 2018-10-20 Completed University o f Polysaccharide, 00:00:00 [facility] PPSV23 (PNEUMOVAX) Branch Pneumococcal 2018-10-20 Completed University o f Polysaccharide, 00:00:00 [facility] PPSV23 (PNEUMOVAX) Branch Pneumococcal 2018-10-20 Completed University o f Polysaccharide, 00:00:00 [facility] PPSV23 (PNEUMOVAX) Branch Pneumococcal 2018-10-20 Completed University o f Polysaccharide, 00:00:00 [facility] PPSV23 (PNEUMOVAX) Branch Pneumococcal 2018-10-20 Completed University o f Polysaccharide, 00:00:00 [facility] PPSV23 (PNEUMOVAX) Branch Pneumococcal 2018-10-20 Completed University o f Polysaccharide, 00:00:00 [facility] PPSV23 (PNEUMOVAX) Branch Pneumococcal 2018-10-20 Completed University o f Polysaccharide, 00:00:00 [facility] PPSV23 (PNEUMOVAX) Branch Pneumococcal 2018-10-20 Completed University o f Polysaccharide, 00:00:00 [facility] PPSV23 (PNEUMOVAX) Branch Pneumococcal 2018-10-20 Completed University o f Polysaccharide, 00:00:00 [facility] PPSV23 (PNEUMOVAX) Branch Pneumococcal 2018-10-20 Completed University o f Polysaccharide, 00:00:00 [place] [facility] PPSV23 (PNEUMOVAX) Branch Pneumococcal 2018-10-20 Completed University o f Polysaccharide, 00:00:00 [place] [facility] PPSV23 (PNEUMOVAX) Branch Pneumococcal 2018-10-20 Completed University o f Polysaccharide, 00:00:00 [place] [facility] PPSV23 (PNEUMOVAX) Branch Pneumococcal 2018-10-20 Completed University o f Polysaccharide, 00:00:00 [place] [facility] PPSV23 (PNEUMOVAX) Branch Pneumococcal 2018-10-20 Completed University o f Polysaccharide, 00:00:00 [place] [facility] PPSV23 (PNEUMOVAX) Branch Pneumococcal 2018-10-20 Completed University o f Polysaccharide, 00:00:00 [facility] PPSV23 (PNEUMOVAX) Branch Pneumococcal 2018-10-20 Completed University o f Polysaccharide, 00:00:00 [place] [facility] PPSV23 (PNEUMOVAX) Branch Pneumococcal 2018-10-20 Completed University o f Polysaccharide, 00:00:00 [place] [facility] PPSV23 (PNEUMOVAX) Branch Influenza Virus 2018-06-25 Completed Universit y of Vaccine - Whole 00:00:00 [facility] Influenza Virus 2018-06-25 Completed Universit y of Vaccine - Whole 00:00:00 [facility] Influenza Virus 2018-06-25 Completed Universit y of Vaccine - Whole 00:00:00 [facility] Influenza Virus 2018-06-25 Completed Universit y of Vaccine - Whole 00:00:00 [facility] Influenza Virus 2018-06-25 Completed Universit y of Vaccine - Whole 00:00:00 [facility] Influenza Virus 2018-06-25 Completed Universit y of Vaccine - Whole 00:00:00 [facility] Influenza Virus 2018-06-25 Completed Universit y of Vaccine - Whole 00:00:00 [facility] Influenza Virus 2018-06-25 Completed Universit y of Vaccine - Whole 00:00:00 [facility] Influenza Virus 2018-06-25 Completed Universit y of Vaccine - Whole 00:00:00 [facility] Influenza Virus 2018-06-25 Completed Universit y of Vaccine - Whole 00:00:00 [facility] Influenza Virus 2018-06-25 Completed Universit y of Vaccine - Whole 00:00:00 [facility] Influenza Virus 2018-06-25 Completed Universit y of Vaccine - Whole 00:00:00 [facility] Influenza Virus 2018-06-25 Completed Universit y of Vaccine - Whole 00:00:00 [facility] Influenza Virus 2018-06-25 Completed Universit y of Vaccine - Whole 00:00:00 [facility] Influenza Virus 2018-06-25 Completed Universit y of Vaccine - Whole 00:00:00 [facility] Influenza Virus 2018-06-25 Completed Universit y of Vaccine - Whole 00:00:00 [facility] Influenza Virus 2018-06-25 Completed Universit y of Vaccine - Whole 00:00:00 [facility] Influenza Virus 2018-06-25 Completed Universit y of Vaccine - Whole 00:00:00 [facility] Influenza Virus 2018-06-25 Completed Universit y of Vaccine - Whole 00:00:00 [facility] Influenza Virus 2018-06-25 Completed Universit y of Vaccine - Whole 00:00:00 [facility] Influenza Virus 2018-06-25 Completed Universit y of Vaccine - Whole 00:00:00 [facility] Influenza Virus 2018-06-25 Completed Universit y of Vaccine - Whole 00:00:00 [facility] Influenza Virus 2018-06-25 Completed Universit y of Vaccine - Whole 00:00:00 [facility] Influenza Virus 2018-06-25 Completed Universit y of Vaccine - Whole 00:00:00 [facility] Influenza Virus 2018-06-25 Completed Universit y of Vaccine - Whole 00:00:00 [facility] Influenza Virus 2018-06-25 Completed Universit y of Vaccine - Whole 00:00:00 [facility] Influenza Virus 2018-06-25 Completed Universit y of Vaccine - Whole 00:00:00 [facility] Influenza Virus 2018-06-25 Completed Universit y of Vaccine - Whole 00:00:00 [facility] Influenza Virus 2018-06-25 Completed Universit y of Vaccine - Whole 00:00:00 [facility] Influenza Virus 2018-06-25 Completed Universit y of Vaccine - Whole 00:00:00 [facility] Influenza Virus 2018-06-25 Completed Universit y of Vaccine - Whole 00:00:00 [facility] Influenza Virus 2018-06-25 Completed Universit y of Vaccine - Whole 00:00:00 [facility] Influenza Virus 2018-06-25 Completed Universit y of Vaccine - Whole 00:00:00 [facility] Hep B, Adol or Pedi 2018-02-03 Completed Unive rsity of Dosage 00:00:00 [facility] Hep B, Adol or Pedi 2018-02-03 Completed Unive rsity of Dosage 00:00:00 [facility] Hep B, Adol or Pedi 2018-02-03 Completed Unive rsity of Dosage 00:00:00 [facility] Hep B, Adol or Pedi 2018-02-03 Completed Unive rsity of Dosage 00:00:00 [facility] Hep B, Adol or Pedi 2018-02-03 Completed Unive rsity of Dosage 00:00:00 [facility] Hep B, Adol or Pedi 2018-02-03 Completed Unive rsity of Dosage 00:00:00 [facility] Hep B, Adol or Pedi 2018-02-03 Completed Unive rsity of Dosage 00:00:00 [facility] Hep B, Adol or Pedi 2018-02-03 Completed Unive rsity of Dosage 00:00:00 [facility] Hep B, Adol or Pedi 2018-02-03 Completed Unive rsity of Dosage 00:00:00 [facility] Hep B, Adol or Pedi 2018-02-03 Completed Unive rsity of Dosage 00:00:00 [facility] Hep B, Adol or Pedi 2018-02-03 Completed Unive rsity of Dosage 00:00:00 [facility] Hep B, Adol or Pedi 2018-02-03 Completed Unive rsity of Dosage 00:00:00 [facility] Hep B, Adol or Pedi 2018-02-03 Completed Unive rsity of Dosage 00:00:00 [facility] Hep B, Adol or Pedi 2018-02-03 Completed Unive rsity of Dosage 00:00:00 [facility] Hep B, Adol or Pedi 2018-02-03 Completed Unive rsity of Dosage 00:00:00 [facility] Hep B, Adol or Pedi 2018-02-03 Completed Unive rsity of Dosage 00:00:00 [facility] Hep B, Adol or Pedi 2018-02-03 Completed Unive rsity of Dosage 00:00:00 [facility] Hep B, Adol or Pedi 2018-02-03 Completed Unive rsity of Dosage 00:00:00 [facility] Hep B, Adol or Pedi 2018-02-03 Completed Unive rsity of Dosage 00:00:00 [facility] Hep B, Adol or Pedi 2018-02-03 Completed Unive rsity of Dosage 00:00:00 [facility] Hep B, Adol or Pedi 2018-02-03 Completed Unive rsity of Dosage 00:00:00 [facility] Hep B, Adol or Pedi 2018-02-03 Completed Unive rsity of Dosage 00:00:00 [facility] Hep B, Adol or Pedi 2018-02-03 Completed Unive rsity of Dosage 00:00:00 [facility] Hep B, Adol or Pedi 2018-02-03 Completed Unive rsity of Dosage 00:00:00 [facility] Hep B, Adol or Pedi 2018-02-03 Completed Unive rsity of Dosage 00:00:00 [facility] Hep B, Adol or Pedi 2018-02-03 Completed Unive rsity of Dosage 00:00:00 [facility] Hep B, Adol or Pedi 2018-02-03 Completed Unive rsity of Dosage 00:00:00 [facility] Hep B, Adol or Pedi 2018-02-03 Completed Unive rsity of Dosage 00:00:00 [facility] Hep B, Adol or Pedi 2018-02-03 Completed Unive rsity of Dosage 00:00:00 [facility] Hep B, Adol or Pedi 2018-02-03 Completed Unive rsity of Dosage 00:00:00 [facility] Hep B, Adol or Pedi 2018-02-03 Completed Unive rsity of Dosage 00:00:00 [facility] Hep B, Adol or Pedi 2018-02-03 Completed Unive rsity of Dosage 00:00:00 [facility] Hep B, Adol or Pedi 2018-02-03 Completed Unive rsity of Dosage 00:00:00 [facility] Influenza Virus 2017-07-03 Completed Universit y of Vaccine 00:00:00 [facility] Influenza Virus 2017-07-03 Completed Universit y of Vaccine 00:00:00 [facility] Influenza Virus 2017-07-03 Completed Universit y of Vaccine 00:00:00 [facility] Influenza Virus 2017-07-03 Completed Universit y of Vaccine 00:00:00 [facility] Influenza Virus 2017-07-03 Completed Universit y of Vaccine 00:00:00 [facility] Influenza Virus 2017-07-03 Completed Universit y of Vaccine 00:00:00 [facility] Influenza Virus 2017-07-03 Completed Universit y of Vaccine 00:00:00 [facility] Influenza Virus 2017-07-03 Completed Universit y of Vaccine 00:00:00 [facility] Influenza Virus 2017-07-03 Completed Universit y of Vaccine 00:00:00 [facility] Influenza Virus 2017-07-03 Completed Universit y of Vaccine 00:00:00 [facility] Branch Influenza Virus 2017-07-03 Completed Universit y of Vaccine 00:00:00 [facility] Influenza Virus 2017-07-03 Completed Universit y of Vaccine 00:00:00 [facility] Influenza Virus 2017-07-03 Completed Universit y of Vaccine 00:00:00 [facility] Influenza Virus 2017-07-03 Completed [facility]it y of Vaccine 00:00:00 [facility] Influenza Virus 2017-07-03 Completed Universit y of Vaccine 00:00:00 [facility] Influenza Virus 2017-07-03 Completed Universit y of Vaccine 00:00:00 [facility] Influenza Virus 2017-07-03 Completed Universit y of Vaccine 00:00:00 [facility] Influenza Virus 2017-07-03 Completed [facility]it y of Vaccine 00:00:00 [facility] Influenza Virus 2017-07-03 Completed Universit y of Vaccine 00:00:00 [facility] Influenza Virus 2017-07-03 Completed Universit y of Vaccine 00:00:00 [facility] Influenza Virus 2017-07-03 Completed [facility]it y of Vaccine 00:00:00 [facility] Influenza Virus 2017-07-03 Completed Universit y of Vaccine 00:00:00 [facility] Influenza Virus 2017-07-03 Completed [facility]it y of Vaccine 00:00:00 [facility] Influenza Virus 2017-07-03 Completed [facility] 00[facility]00[facility]00 [facility] Influenza Virus 2017-07-03 Completed [facility] Vaccine 00:00:00 [facility] Influenza Virus 2017-07-03 Completed [facility] Vaccine 00:00:00 [facility] Influenza Virus 2017-07-03 Completed [facility] Vaccine 00:00:00 [facility] Influenza Virus 2017-07-03 Completed [facility] Vaccine 00:00:00 [facility] Influenza Virus 2017-07-03 Completed [facility] Vaccine 00:00:00 [facility] Influenza Virus 2017-07-03 Completed [facility] Vaccine 00:00:00 [facility] Influenza Virus 2017-07-03 Completed [facility] Vaccine 00:00:00 [facility] Influenza Virus 2017-07-03 Completed [facility] Vaccine 00:00:00 [facility] Influenza Virus 2017-07-03 Completed [facility] Vaccine 00:00:00 [facility] TDAP 2016-12-14 Completed [facility] of 00:00:00 [facility] MMR 2016-12-14 Completed [facility] of 00:00:00 [facility] Varicella 2016-12-14 Completed University of (varivax)(chicken 00:00:00 [facility] edical pox) [place] TDAP 2016-12-14 Completed [facility] of 00:00:00 [facility] MMR 2016-12-14 Completed [facility] of 00:00:00 [facility] Varicella 2016-12-14 Completed [facility] of (varivax)(chicken 00:00:00 [place] [facility]ox[facility] TDAP 2016-12-14 Completed [facility] of 00:00:00 [facility] MMR 2016-12-14 Completed [facility] of 00:00:00 [facility] Varicella 2016-12-14 Completed [facility] of (varivax)(chicken 00:00:00 [place] [facility] pox[facility] TDAP 2016-12-14 Completed [facility] of 00:00:00 [facility] MMR 2016-12-14 Completed [facility] of 00:00:00 [facility] Varicella 2016-12-14 Completed [facility] of (varivax)(chicken 00:00:00 [place] [facility] pox) [facility] TDAP 2016-12-14 Completed [facility] of 00:00:00 [facility] MMR 2016-12-14 Completed [facility] of 00:00:00 [facility] Varicella 2016-12-14 Completed [facility] of (varivax)(chicken 00:00:00 [place] [facility] pox[facility] TDAP 2016-12-14 Completed [facility] of 00:00:00 [facility] MMR 2016-12-14 Completed [facility] of 00:00:00 [facility] Varicella 2016-12-14 Completed [facility] of (varivax)(chicken 00:00:00 [place] [facility] pox[facility] TDAP 2016-12-14 Completed [facility] of 00:00:00 [facility] MMR 2016-12-14 Completed [facility] of 00:00:00 [facility] Varicella 2016-12-14 Completed [facility] of (varivax)(chicken 00:00:00 [place] [facility] pox[facility] TDAP 2016-12-14 Completed [facility] of 00:00:00 [facility] MMR 2016-12-14 Completed [facility] of 00:00:00 [facility] Varicella 2016-12-14 Completed [facility] of (varivax)(chicken 00:00:00 [place] [facility] pox[facility] TDAP 2016-12-14 Completed [facility] of 00:00:00 [facility] MMR 2016-12-14 Completed [facility] of 00:00:00 [facility] Varicella 2016-12-14 Completed [facility] (varivax)(chicken 00:00:00 [place] [facility] pox[facility] TDAP 2016-12-14 Completed [facility] of 00:00:00 [facility] MMR 2016-12-14 Completed [facility] of 00:00:00 [facility] Varicella 2016-12-14 Completed [facility] of (varivax)(chicken 00:00:00 [place] [facility] pox) [facility] TDAP 2016-12-14 Completed [facility] of 00:00:00 [facility] MMR 2016-12-14 Completed [facility] of 00:00:00 [facility] Varicella 2016-12-14 Completed [facility] of (varivax)(chicken 00:00:00 [place] [facility] pox[facility] TDAP 2016-12-14 Completed [facility] of 00:00:00 [facility] MMR 2016-12-14 Completed [facility] of 00:00:00 [facility] Varicella 2016-12-14 Completed [facility] of (varivax)(chicken 00:00:00 [place] [facility] pox) [facility] TDAP 2016-12-14 Completed [facility] of 00:00:00 [facility] MMR 2016-12-14 Completed [facility] of 00:00:00 [facility] Varicella 2016-12-14 Completed [facility] of (varivax)(chicken 00:00:00 [place] [facility] pox) [facility] TDAP 2016-12-14 Completed [facility] of 00:00:00 [facility] MMR 2016-12-14 Completed [facility] of 00:00:00 [facility] Varicella 2016-12-14 Completed [facility] of (varivax)(chicken 00:00:00 [place] [facility] pox) [facility] TDAP 2016-12-14 Completed [facility] of 00:00:00 [facility] MMR 2016-12-14 Completed [facility] of 00:00:00 [facility] Varicella 2016-12-14 Completed [facility] of (varivax)(chicken 00:00:00 [place] [facility] pox) [facility] TDAP 2016-12-14 Completed [facility] of 00:00:00 [facility] MMR 2016-12-14 Completed [facility] of 00:00:00 [facility] Varicella 2016-12-14 Completed [facility] of (varivax)(chicken 00:00:00 [place] [facility] pox) [facility] TDAP 2016-12-14 Completed [facility] of 00:00:00 [facility] MMR 2016-12-14 Completed [facility] of 00:00:00 [facility] Varicella 2016-12-14 Completed [facility] of (varivax)(chicken 00:00:00 [place] [facility] pox) [facility] TDAP 2016-12-14 Completed [facility] of 00:00:00 [facility] MMR 2016-12-14 Completed [facility] of 00:00:00 [facility] Varicella 2016-12-14 Completed [facility] of (varivax)(chicken 00:00:00 [place] [facility] pox) [facility] TDAP 2016-12-14 Completed [facility] of 00:00:00 [facility] MMR 2016-12-14 Completed [facility] of 00:00:00 [facility] Varicella 2016-12-14 Completed [facility] of (varivax)(chicken 00:00:00 [place] [facility] pox[facility] TDAP 2016-12-14 Completed [facility] of 00:00:00 [facility] MMR 2016-12-14 Completed [facility] of 00:00:00 [facility] Varicella 2016-12-14 Completed [facility] of (varivax)(chicken 00:00:00 [place] [facility] pox[facility] TDAP 2016-12-14 Completed [facility] of 00:00:00 [facility] MMR 2016-12-14 Completed [facility] of 00:00:00 [facility] Varicella 2016-12-14 Completed [facility] of (varivax)(chicken 00:00:00 [place] [facility] pox[facility] TDAP 2016-12-14 Completed [facility] of 00:00:00 [facility] MMR 2016-12-14 Completed [facility] of 00:00:00 [facility] Varicella 2016-12-14 Completed [facility] of (varivax)(chicken 00:00:00 [place] [facility] pox) [facility] TDAP 2016-12-14 Completed [facility] of 00:00:00 [facility] MMR 2016-12-14 Completed [facility] of 00:00:00 [facility] Varicella 2016-12-14 Completed [facility] of (varivax)(chicken 00:00:00 [place] [facility] pox) [facility] TDAP 2016-12-14 Completed [facility] of 00:00:00 [facility] MMR 2016-12-14 Completed [facility] of 00:00:00 [facility] Varicella 2016-12-14 Completed [facility] of (varivax)(chicken 00:00:00 [place] [facility] pox) [facility] TDAP 2016-12-14 Completed [facility] of 00:00:00 [facility] MMR 2016-12-14 Completed [facility] of 00:00:00 [facility] Varicella 2016-12-14 Completed [facility] of (varivax)(chicken 00:00:00 [place] [facility] pox) [facility] TDAP 2016-12-14 Completed [facility] of 00:00:00 [facility] MMR 2016-12-14 Completed [facility] of 00:00:00 [facility] Varicella 2016-12-14 Completed [facility] of (varivax)(chicken 00:00:00 [place] [facility] pox[facility] TDAP 2016-12-14 Completed [facility] of 00:00:00 [facility] MMR 2016-12-14 Completed [facility] of 00:00:00 [facility] Varicella 2016-12-14 Completed [facility] of (varivax)(chicken 00:00:00 [place] [facility] pox) [facility] TDAP 2016-12-14 Completed [facility] of 00:00:00 [facility] MMR 2016-12-14 Completed [facility] of 00:00:00 [facility] Varicella 2016-12-14 Completed [facility] of (varivax)(chicken 00:00:00 [place] [facility] pox) [facility] TDAP 2016-12-14 Completed [facility] of 00:00:00 [facility] MMR 2016-12-14 Completed [facility] of 00:00:00 [facility] Varicella 2016-12-14 Completed [facility] of (varivax)(chicken 00:00:00 [place] [facility] pox) [facility] TDAP 2016-12-14 Completed [facility] of 00:00:00 [facility] MMR 2016-12-14 Completed [facility] of 00:00:00 [facility] Varicella 2016-12-14 Completed [facility] of (varivax)(chicken 00:00:00 [place] [facility] pox) [facility] TDAP 2016-12-14 Completed [facility] of 00:00:00 [facility] MMR 2016-12-14 Completed [facility] of 00:00:00 [facility] Varicella 2016-12-14 Completed [facility] of (varivax)(chicken 00:00:00 [place] [facility] pox) [facility] TDAP 2016-12-14 Completed [facility] of 00:00:00 [facility] MMR 2016-12-14 Completed [facility] of 00:00:00 [facility] Varicella 2016-12-14 Completed [facility] of (varivax)(chicken 00:00:00 [place] [facility] pox) [facility] TDAP 2016-12-14 Completed [facility] of 00:00:00 [facility] MMR 2016-12-14 Completed [facility] of 00:00:00 [facility] Varicella 2016-12-14 Completed [facility] of (varivax)(chicken 00:00:00 [place] [facility] pox[facility] Hep B, Adol or Pedi 2008-08-27 Completed Unive rsity of Dosage 00:00:00 [place] [facility] Hep B, Adol or Pedi 2008-08-27 Completed Unive rsity of Dosage 00:00:00 [place] [facility] Hep B, Adol or Pedi 2008-08-27 Completed Unive rsity of Dosage 00:00:00 [place] [facility] Hep B, Adol or Pedi 2008-08-27 Completed Unive rsity of Dosage 00:00:00 [place] [facility] Hep B, Adol or Pedi 2008-08-27 Completed Unive rsity of Dosage 00:00:00 [place] [facility] Hep B, Adol or Pedi 2008-08-27 Completed Unive rsity of Dosage 00:00:00 [place] [facility] Hep B, Adol or Pedi 2008-08-27 Completed Unive rsity of Dosage 00:00:00 [place] [facility] Hep B, Adol or Pedi 2008-08-27 Completed Unive rsity of Dosage 00:00:00 [place] [facility] Hep B, Adol or Pedi 2008-08-27 Completed Unive rsity of Dosage 00:00:00 [place] [facility] Hep B, Adol or Pedi 2008-08-27 Completed Unive rsity of Dosage 00:00:00 [place] [facility] Hep B, Adol or Pedi 2008-08-27 Completed Unive rsity of Dosage 00:00:00 [place] [facility] Hep B, Adol or Pedi 2008-08-27 Completed Unive rsity of Dosage 00:00:00 [place] [facility] Hep B, Adol or Pedi 2008-08-27 Completed Unive rsity of Dosage 00:00:00 [place] [facility] Hep B, Adol or Pedi 2008-08-27 Completed Unive rsity of Dosage 00:00:00 [place] [facility] Hep B, Adol or Pedi 2008-08-27 Completed Unive rsity of Dosage 00:00:00 [place] [facility] Hep B, Adol or Pedi 2008-08-27 Completed Unive rsity of Dosage 00:00:00 [place] [facility] Hep B, Adol or Pedi 2008-08-27 Completed Unive rsity of Dosage 00:00:00 [place] [facility] Hep B, Adol or Pedi 2008-08-27 Completed Unive rsity of Dosage 00:00:00 [place] [facility] Hep B, Adol or Pedi 2008-08-27 Completed Unive rsity of Dosage 00:00:00 [place] [facility] Hep B, Adol or Pedi 2008-08-27 Completed Unive rsity of Dosage 00:00:00 [place] [facility] Hep B, Adol or Pedi 2008-08-27 Completed Unive rsity of Dosage 00:00:00 [place] [facility] Hep B, Adol or Pedi 2008-08-27 Completed Unive rsity of Dosage 00:00:00 [place] [facility] Hep B, Adol or Pedi 2008-08-27 Completed Unive rsity of Dosage 00:00:00 [place] [facility] Hep B, Adol or Pedi 2008-08-27 Completed Unive rsity of Dosage 00:00:00 [place] [facility] Hep B, Adol or Pedi 2008-08-27 Completed Unive rsity of Dosage 00:00:00 [place] [facility] Hep B, Adol or Pedi 2008-08-27 Completed Unive rsity of Dosage 00:00:00 [place] [facility] Hep B, Adol or Pedi 2008-08-27 Completed Unive rsity of Dosage 00:00:00 [place] [facility] Hep B, Adol or Pedi 2008-08-27 Completed Unive rsity of Dosage 00:00:00 [place] [facility] Hep B, Adol or Pedi 2008-08-27 Completed Unive rsity of Dosage 00:00:00 [place] [facility] Hep B, Adol or Pedi 2008-08-27 Completed Unive rsity of Dosage 00:00:00 [place] [facility] Hep B, Adol or Pedi 2008-08-27 Completed Unive rsity of Dosage 00:00:00 [place] [facility] Hep B, Adol or Pedi 2008-08-27 Completed Unive rsity of Dosage 00:00:00 [place] [facility] Hep B, Adol or Pedi 2008-08-27 Completed Unive rsity of Dosage 00:00:00 [facility] HEPATITIS A 2008-07-22 Completed University of 00:00:00 [place] [facility] Hep B, Adol or Pedi 2008-07-22 Completed Unive rsity of Dosage 00:00:00 [facility] Td 2008-07-22 Completed [facility] of 00:00:00 [facility] HEPATITIS A 2008-07-22 Completed [facility] of 00:00:00 [facility] Hep B, Adol or Pedi 2008-07-22 Completed Unive rsity of Dosage 00:00:00 [facility] Td 2008-07-22 Completed [facility] of 00:00:00 [facility] HEPATITIS A 2008-07-22 Completed [facility] of 00:00:00 [facility] Hep B, Adol or Pedi 2008-07-22 Completed Unive rsity of Dosage 00:00:00 [facility] Td 2008-07-22 Completed [facility] of 00:00:00 [facility] HEPATITIS A 2008-07-22 Completed [facility] of 00:00:00 [facility] Hep B, Adol or Pedi 2008-07-22 Completed Unive rsity of Dosage 00:00:00 [facility] Td 2008-07-22 Completed [facility] of 00:00:00 [facility] HEPATITIS A 2008-07-22 Completed [facility] of 00:00:00 [facility] Hep B, Adol or Pedi 2008-07-22 Completed Unive rsity of Dosage 00:00:00 [facility] Td 2008-07-22 Completed [facility] of 00:00:00 [facility] HEPATITIS A 2008-07-22 Completed [facility] of 00:00:00 [facility] Hep B, Adol or Pedi 2008-07-22 Completed Unive rsity of Dosage 00:00:00 [facility] Td 2008-07-22 Completed University of 00:00:00 [facility] HEPATITIS A 2008-07-22 Completed University of 00:00:00 [facility] Hep B, Adol or Pedi 2008-07-22 Completed Unive rsity of Dosage 00:00:00 [facility] Td 2008-07-22 Completed [facility] of 00:00:00 [facility] HEPATITIS A 2008-07-22 Completed [facility] of 00:00:00 [facility] Hep B, Adol or Pedi 2008-07-22 Completed Unive rsity of Dosage 00:00:00 [facility] Td 2008-07-22 Completed [facility] of 00:00:00 [facility] HEPATITIS A 2008-07-22 Completed [facility] of 00:00:00 [facility] Hep B, Adol or Pedi 2008-07-22 Completed Unive rsity of Dosage 00:00:00 [place] [facility] Td 2008-07-22 Completed [facility] of 00:00:00 [facility] HEPATITIS A 2008-07-22 Completed [facility] of 00:00:00 [place] [facility] Hep B, Adol or Pedi 2008-07-22 Completed Unive rsity of Dosage 00:00:00 [facility] Td 2008-07-22 Completed [facility] of 00:00:00 [facility] HEPATITIS A 2008-07-22 Completed [facility] of 00:00:00 [facility] Hep B, Adol or Pedi 2008-07-22 Completed Unive rsity of Dosage 00:00:00 [facility] Td 2008-07-22 Completed [facility] of 00:00:00 [facility] HEPATITIS A 2008-07-22 Completed [facility] of 00:00:00 [facility] Hep B, Adol or Pedi 2008-07-22 Completed Unive rsity of Dosage 00:00:00 [facility] Td 2008-07-22 Completed [facility] of 00:00:00 [facility] HEPATITIS A 2008-07-22 Completed [facility] of 00:00:00 [facility] Hep B, Adol or Pedi 2008-07-22 Completed Unive rsity of Dosage 00:00:00 [facility] Td 2008-07-22 Completed [facility] of 00:00:00 [facility] HEPATITIS A 2008-07-22 Completed [facility] of 00:00:00 [facility] Hep B, Adol or Pedi 2008-07-22 Completed Unive rsity of Dosage 00:00:00 [facility] Td 2008-07-22 Completed [facility] of 00:00:00 [facility] HEPATITIS A 2008-07-22 Completed [facility] of 00:00:00 [facility] Hep B, Adol or Pedi 2008-07-22 Completed Unive rsity of Dosage 00:00:00 [facility] Td 2008-07-22 Completed [facility] of 00:00:00 [facility] HEPATITIS A 2008-07-22 Completed [facility] of 00:00:00 [facility] Hep B, Adol or Pedi 2008-07-22 Completed Unive rsity of Dosage 00:00:00 [facility] Td 2008-07-22 Completed [facility] of 00:00:00 [facility] HEPATITIS A 2008-07-22 Completed [facility] of 00:00:00 [facility] Hep B, Adol or Pedi 2008-07-22 Completed Unive rsity of Dosage 00:00:00 [facility] Td 2008-07-22 Completed [facility] of 00:00:00 [facility] HEPATITIS A 2008-07-22 Completed [facility] 00:00:00 [place] [facility] Hep B, Adol or Pedi 2008-07-22 Completed Unive rsity of Dosage 00:00:00 [facility] Td 2008-07-22 Completed [facility] of 00:00:00 [facility] HEPATITIS A 2008-07-22 Completed [facility] of 00:00:00 [facility] Hep B, Adol or Pedi 2008-07-22 Completed Unive rsity of Dosage 00:00:00 [facility] Td 2008-07-22 Completed [facility] of 00:00:00 [facility] HEPATITIS A 2008-07-22 Completed [facility] of 00:00:00 [facility] Hep B, Adol or Pedi 2008-07-22 Completed Unive rsity of Dosage 00:00:00 [facility] Td 2008-07-22 Completed [facility] of 00:00:00 [facility] HEPATITIS A 2008-07-22 Completed [facility] of 00:00:00 [facility] Hep B, Adol or Pedi 2008-07-22 Completed Unive rsity of Dosage 00:00:00 [facility] Td 2008-07-22 Completed [facility] of 00:00:00 [facility] HEPATITIS A 2008-07-22 Completed [facility] of 00:00:00 [facility] Hep B, Adol or Pedi 2008-07-22 Completed Unive rsity of Dosage 00:00:00 [facility] Td 2008-07-22 Completed [facility] of 00:00:00 [facility] HEPATITIS A 2008-07-22 Completed [facility] of 00:00:00 [facility] Hep B, Adol or Pedi 2008-07-22 Completed Unive rsity of Dosage 00:00:00 [facility] Td 2008-07-22 Completed [facility] of 00:00:00 [facility] HEPATITIS A 2008-07-22 Completed [facility] of 00:00:00 [facility] Hep B, Adol or Pedi 2008-07-22 Completed Unive rsity of Dosage 00:00:00 [facility] Td 2008-07-22 Completed [facility] of 00:00:00 [facility] HEPATITIS A 2008-07-22 Completed [facility] of 00:00:00 [facility] Hep B, Adol or Pedi 2008-07-22 Completed Unive rsity of Dosage 00:00:00 [facility] Td 2008-07-22 Completed [facility] of 00:00:00 [facility] HEPATITIS A 2008-07-22 Completed [facility] of 00:00:00 [facility] Hep B, Adol or Pedi 2008-07-22 Completed Unive rsity of Dosage 00:00:00 [facility] Td 2008-07-22 Completed [facility] of 00:00:00 [facility] HEPATITIS A 2008-07-22 Completed [facility] of 00:00:00 [facility] Hep B, Adol or Pedi 2008-07-22 Completed Unive rsity of Dosage 00:00:00 [facility] Td 2008-07-22 Completed [facility] of 00:00:00 [facility] HEPATITIS A 2008-07-22 Completed [facility] of 00:00:00 [facility] Hep B, Adol or Pedi 2008-07-22 Completed Unive rsity of Dosage 00:00:00 [facility] Td 2008-07-22 Completed [facility] of 00:00:00 [facility] HEPATITIS A 2008-07-22 Completed [facility] of 00:00:00 [facility] Hep B, Adol or Pedi 2008-07-22 Completed Unive rsity of Dosage 00:00:00 [facility] TD, NOS 2008-07-22 Completed University of 00:00:00 [facility] HEPATITIS A 2008-07-22 Completed [facility] of 00:00:00 [facility] Hep B, Adol or Pedi 2008-07-22 Completed Unive rsity of Dosage 00:00:00 [facility] TD, NOS 2008-07-22 Completed [facility] of 00:00:00 [facility] HEPATITIS A 2008-07-22 Completed [facility] of 00:00:00 [facility] Hep B, Adol or Pedi 2008-07-22 Completed Unive rsity of Dosage 00:00:00 [facility] TD, NOS 2008-07-22 Completed [facility] of 00:00:00 [facility] HEPATITIS A 2008-07-22 Completed [facility] of 00:00:00 [facility] Hep B, Adol or Pedi 2008-07-22 Completed Unive rsity of Dosage 00:00:00 [facility] TD, NOS 2008-07-22 Completed [facility] of 00:00:00 [facility] HEPATITIS A 2008-07-22 Completed [facility] of 00:00:00 [facility] Hep B, Adol or Pedi 2008-07-22 Completed Unive rsity of Dosage 00:00:00 [facility] TD, NOS 2008-07-22 Completed [facility] of 00:00:00 [facility] HEPATITIS A 2005-09-21 Completed [facility] of 00:00:00 [facility] HEPATITIS A 2005-09-21 Completed [facility] of 00:00:00 [facility] HEPATITIS A 2005-09-21 Completed [facility] of 00:00:00 [facility] HEPATITIS A 2005-09-21 Completed [facility] of 00:00:00 [facility] HEPATITIS A 2005-09-21 Completed [facility] 00:00:00 [facility] HEPATITIS A 2005-09-21 Completed [facility] 00:00:00 [facility] HEPATITIS A 2005-09-21 Completed [facility] of 00:00:00 [facility] HEPATITIS A 2005-09-21 Completed [facility] of 00:00:00 [facility] HEPATITIS A 2005-09-21 Completed [facility] 00:00:00 [facility] HEPATITIS A 2005-09-21 Completed [facility] 00:00:00 [facility] HEPATITIS A 2005-09-21 Completed [facility] 00:00:00 [facility] HEPATITIS A 2005-09-21 Completed [facility] 00:00:00 [facility] HEPATITIS A 2005-09-21 Completed [facility] 00:00:00 [facility] HEPATITIS A 2005-09-21 Completed [facility] 00:00:00 [facility] HEPATITIS A 2005-09-21 Completed [facility] 00:00:00 [facility] HEPATITIS A 2005-09-21 Completed [facility] 00:00:00 [facility] HEPATITIS A 2005-09-21 Completed [facility] 00:00:00 [facility] HEPATITIS A 2005-09-21 Completed [facility] 00:00:00 [facility] HEPATITIS A 2005-09-21 Completed [facility] 00:00:00 [facility] HEPATITIS A 2005-09-21 Completed [facility] 00:00:00 [facility] HEPATITIS A 2005-09-21 Completed [facility] 00:00:00 [facility] HEPATITIS A 2005-09-21 Completed [facility] 00:00:00 [facility] HEPATITIS A 2005-09-21 Completed [facility] 00:00:00 [facility] HEPATITIS A 2005-09-21 Completed [facility] 00:00:00 [facility] HEPATITIS A 2005-09-21 Completed University [facility] 00:00:00 [facility] HEPATITIS A 2005-09-21 Completed [facility] of 00:00:00 [facility] HEPATITIS A 2005-09-21 Completed University of 00:00:00 [facility] HEPATITIS A 2005-09-21 Completed [facility] of 00:00:00 [facility] HEPATITIS A 2005-09-21 Completed [facility] 00:00:00 [facility] HEPATITIS A 2005-09-21 Completed University of 00:00:00 [facility] HEPATITIS A 2005-09-21 Completed University of 00:00:00 [facility] HEPATITIS A 2005-09-21 Completed [facility] of 00:00:00 [facility] HEPATITIS A 2005-09-21 Completed University of 00:00:00 [facility] Vital Signs Vital Name Observation Time Observation Value Comments Source Systolic blood 2022-09-20 22:12:00 139 mm[Hg] Univer sity of pressure [facility] Diastolic blood 2022-09-20 22:12:00 92 mm[Hg] Unive rsity of [facility] Heart rate 2022-09-20 22:12:00 87 /min [facility] [place] Body temperature 2022-09-20 22:12:00 36.83 Karlie Univ ersity of [facility] Body height 2022-09-20 22:12:00 154.9 cm Univers[facility] Body weight 2022-09-20 22:12:00 70.398 kg [facility] BMI 2022-09-20 22:12:00 29.32 kg/m2 [facility] Systolic blood 2022-09-13 16:26:00 128 mm[Hg] Univer sity of [facility] Diastolic blood 2022-09-13 16:26:00 84 mm[Hg] Unive rsity of [facility] Heart rate 2022-09-13 16:26:00 90 /min [facility] Body temperature 2022-09-13 16:26:00 36.67 Karlie Univ [facility] Body height 2022-09-13 16:26:00 154.9 cm [facility] Body weight 2022-09-13 16:26:00 69.854 kg [facility] BMI 2022-09-13 16:26:00 29.10 kg/m2 [facility] Systolic blood 2022-08-11 21:12:00 122 mm[Hg] Univer sity of [facility] Diastolic blood 2022-08-11 21:12:00 77 mm[Hg] Unive rsity of [facility] Heart rate 2022-08-11 21:12:00 87 /min [facility] Body temperature 2022-08-11 21:12:00 37.06 Karlie [facility] Respiratory rate 2022-08-11 21:12:00 18 /min Univ [facility] Body height 2022-08-11 21:12:00 154.9 cm [facility] Body weight 2022-08-11 21:12:00 70.398 kg [facility] [place] [facility] BMI 2022-08-11 21:12:00 29.32 kg/m2 [facility] Oxygen saturation in 2022-08-11 21:12:00 99 /min University of Arterial blood by [place] [facility]xim[facility] Systolic blood 2022-05-13 19:17:00 110 mm[Hg] Univer sity of [facility] Diastolic blood 2022-05-13 19:17:00 75 mm[Hg] Unive rsity of [facility] [place] [facility] Heart rate 2022-05-13 19:17:00 78 /min [facility] [place] [facility] Respiratory rate 2022-05-13 19:17:00 17 /min Univ ersity of [facility] Body height 2022-05-13 19:17:00 157.5 cm [facility] Body weight 2022-05-13 19:17:00 68.493 kg [facility] [place] [facility] BMI 2022-05-13 19:17:00 27.62 kg/m2 [facility] Oxygen saturation in 2022-05-13 19:17:00 98 /min University of Arterial blood by [place] [facility] Systolic blood 2021-06-24 18:08:00 124 mm[Hg] Univer sity of [facility] Diastolic blood 2021-06-24 18:08:00 79 mm[Hg] Unive rsity of [facility] Heart rate 2021-06-24 18:08:00 91 /min [facility] [place] [facility] Body weight 2021-06-24 18:08:00 72.122 kg [facility] [place] [facility] BMI 2021-06-24 18:08:00 28.17 kg/m2 [facility] Oxygen saturation in 2021-06-24 18:08:00 94 /min University of Arterial blood by [facility] Pulse oximetry Branch Systolic blood 2021-06-24 18:08:00 124 mm[Hg] Univer sity of [facility] Diastolic blood 2021-06-24 18:08:00 79 mm[Hg] Unive rsity of pressure [facility] Heart rate 2021-06-24 18:08:00 91 /min Universi [facility] Body weight 2021-06-24 18:08:00 72.122 kg [facility] BMI 2021-06-24 18:08:00 28.17 kg/m2 [facility] Oxygen saturation in 2021-06-24 18:08:00 94 /min University of Arterial blood by [facility] Pulse oximetry Branch Systolic blood 2021-06-24 18:08:00 124 mm[Hg] Univer sity of [facility] Diastolic blood 2021-06-24 18:08:00 79 mm[Hg] Unive rsity of [facility] Heart rate 2021-06-24 18:08:00 91 /min Universi ty [facility] Body weight 2021-06-24 18:08:00 72.122 kg [facility] BMI 2021-06-24 18:08:00 28.17 kg/m2 Universi ty of [facility] Oxygen saturation in 2021-06-24 18:08:00 94 /min University of Arterial blood by [facility] Pulse oximetry Branch Procedures Procedure Date / Time Performing Clinician Source Performed WOUND CULTURE 2022-09-20 22:25:00 Harmony Araya [place] [facility] POCT URINALYSIS W/O 2022-09-13 00:00:00 Harmony Araya [facility] [place] [facility] [place] SPECIFIC GRAVITY [facility] POCT SARS-COV-2 ANTIGEN 2022-08-11 21:35:00 Alonso Ames [facility] (BINAX NOW) [facility] POCT MOLECULAR STREP 2022-08-11 21:33:00 Unknown, Attending [facility] POCT MOLECULAR FLU 2022-08-11 21:21:00 Unknown, Attending Univer sity [facility] MICROALBUMIN URINE 2022-07-12 13:07:00 Gokul Persaud [facility] COMP. METABOLIC PANEL 2022-07-12 13:07:00 Giuseppe Montano Un [facility] ([id number]) [facility] LIPID PANEL 2022-07-12 13:07:00 Giuseppe Montano [facility] ([id number])(TOTAL Medical Branch CHOLESTEROL, TRIGLYCERIDES, HDL) CBC WITH DIFF 2022-07-12 13:07:00 Gokul Persaud [facility] GLYCOSYLATED HEMOGLOBIN 2022-07-12 13:07:00 Gokul Persaud [facility] (A1C) [facility] URINALYSIS 2022-07-12 13:07:00 Gokul Persaud [facility] N-TERMINAL PRO-BNP 2022-07-12 13:07:00 Giuseppe Montano Unive [facility] PHYSICIAN ORDERS 2022-06-17 05:01:00 Doctor Unassigned, No Unive [facility] Name [facility] URINALYSIS 2022-05-13 20:03:00 Gokul Persaud [facility] URINE CULTURE 2022-05-13 20:03:00 Gokul Persaud [facility] EKG-12 LEAD 2021-06-24 18:11:22 Giuseppe Montano [facility] Plan of Care Planned Activity Planned Date Details Comments Source Future Scheduled 2029-07-16 DTaP,Tdap,and Td [facility] Vaccines (3 - Td) Medical Br anch [code = DTaP,Tdap,and Td Vaccines (3 - Td)] Future Scheduled 2029-07-16 DTaP,Tdap,and Td Univers ity [facility] Test 00:00:00 Vaccines (3 - Td) Medical Br anch [code = DTaP,Tdap,and Td Vaccines (3 - Td)] Future Scheduled 2025-04-[address] [facility] Test 00:00:00 malignant neoplasm of Medica l Branch cervix (procedure) [code = 972525604] Future Scheduled 2025-04-21 Screening for University [facility] Test 00:00:00 malignant neoplasm of Medica l Branch cervix (procedure) [code = 004667944] Future Scheduled 2021-12-17 Depression screening [facility] [place] Test 00:00:00 (procedure) [code = Medical Branch 635475065] Future Scheduled 2021-12-17 Depression screening [facility] [place] Test 00:00:00 (procedure) [code = Medical Branch 871249535] Future Scheduled 2021-08-13 Creatinine University [facility] Test 00:00:00 measurement Medical Branch (procedure) [code = 87890407] Future Scheduled 2021-08-13 Creatinine [facility] [place] Test 00:00:00 measurement Medical Branch (procedure) [code = 67824888] Future Scheduled 2021-05-29 Microalbumin University [facility] Test 00:00:00 measurement, urine, Medical Branch quantitative (procedure) [code = 170845005] Future Scheduled 2021-05-29 Microalbumin University [facility] Test 00:00:00 measurement, urine, Medical Branch quantitative (procedure) [code = 928833131] Future Scheduled 2021-05-[address] [facility] Test 00:00:00 malignant neoplasm of Medica l Branch breast (procedure) [code = 663749267] Future Scheduled 2021-05-05 Screening for University [facility] Test 00:00:00 malignant neoplasm of Medica l Branch breast (procedure) [code = 954143400] Future Scheduled 2021-04-22 Calculated low [facility] [place] Test 00:00:00 density lipoprotein Medical Branch cholesterol level (procedure) [code = 991004066] Future Scheduled 2021-04-22 Calculated low [facility] [place] Test 00:00:00 density lipoprotein Medical Branch cholesterol level (procedure) [code = 088066272] Future Scheduled 2021-02-10 Hemoglobin A1c [facility] [place] Test 00:00:00 measurement Medical Branch (procedure) [code = 95859634] Future Scheduled 2021-02-10 Hemoglobin A1c [facility] [place] Test 00:00:00 measurement Medical Branch (procedure) [code = 10397721] Future Scheduled 2019-05-[address] [facility] Test 00:00:00 examination Medical Branch (regime/therapy) [code = 961851498] Future Scheduled 2019-05-23 Diabetic foot University [facility] Test 00:00:00 examination Medical Branch (regime/therapy) [code = 027108305] Future Scheduled 2019-04-26 Examination of retina [facility] [place] Test 00:00:00 (procedure) [code = Medical Branch 821239351] Future Scheduled 2019-04-26 Examination of retina [facility] [place] Test 00:00:00 (procedure) [code = Medical Branch 403201649] Encounters Start End Encounter Admission Attending Care Care Encounter Source Date/Time Date/Time Type Type Clinicians Facility Department ID 2021-07-24 Inpatient [facility] [id number] Univers 06:30:58 KEAGAN child [facility] 2022-10-06 2022-10-06 [facility] 1.2.745.440 [id number] Univers 00:00:00 00:00:00 Harmony BRUNSON 350.1.13.10 i ty of [facility] [place] [id number] [address] 2022-09-20 2022-09-20 Office Quiana [facility] 1.2.903.509 [id number] Univers 16:30:00 16:30:00 Visit Harmony BRUNSON 350.1.13.10 i ty of [facility] [place] [id number] [address] 2022-09-20 2022-09-20 Outpatient R QUIANA [facility] [id number] Univers 16:30:00 16:24:20 HARMONY child [facility] 2022-09-20 2022-09-20 Patient CaseDebby [facility] 1.2.840.114 [id number] Univers 00:00:00 00:00:00 Secure Msg Ronald BRUNSON 350.1.13.10 ity of [facility] 4.[place] [id number] [address] 2022-09-20 2022-09-20 Case Quiana [facility] 1.2.566.460 [id number] Univers 00:00:00 00:00:00 Management Harmony BRUNSON 350.1.13.10 ity of [place] [id number] [address] 2022-09-13 2022-09-13 Office Quiana [facility] 1.2.646.365 [id number] Univers 16:30:00 16:30:00 Visit Harmony BOY 350.1.13.10 i ty of [place] [id number] [address] 2022-09-13 2022-09-13 Outpatient R QUIANA [facility] [id number] Univers 16:30:00 10:45:24 HARMONY child [facility] 2022-09-13 2022-09-13 Letter Quiana [facility] 1.2.730.809 [id number] Univers 00:00:00 00:00:00 (Out) Harmony BRUNSON 350.1.13.10 i ty of [place] [phone] [address] 2022-08-11 2022-08-11 Urgent EbAlonso vasquez [facility] 1.2.840.114 [id number] Univers 14:40:00 15:00:00 Care Unknown, [facility] 350.1.13.10 ity of [place] 4.2.7.2.686 Randal as EJ?BLEA [id number] [address] OFFICE [facility] 2022-08-11 2022-08-11 Outpatient R HUI [facility] [id number] Univers 14:40:00 14:40:00 ALONSO child [facility] 2022-08-11 2022-08-11 Letter Pat [facility] 1.2.882.196 [id number] Univers 00:00:00 00:00:00 (Out) [facility] 350.1.13.10 it y of [facility]gent [facility] [place] 4.2.7.2.686 [place] EJ?BLEA [id number] [address] OFFICE [facility] 2022-07-25 2022-07-25 Outpatient R KEVIN PULIDO [facility] [id number] Univers 08:00:00 08:00:00 ity of [facility] 2022-07-14 2022-07-[address] [facility] 1.2.159.461 [id number] Univers 00:00:00 00:00:00 Giuseppe BRUNSON 350.1.13.10 it[place] of [place] [id number] [address] 2022-07-14 2022-07-[address] [facility] 1.2.681.231 [id number] Univers 00:00:00 00:00:00 Giuseppe BRUNSON 350.1.13.10 ity of [place] [phone] [address] 2022-07-13 2022-07-13 Hospital ANJELICA Valdez 1..840.114 [id number] Univers 08:19:00 23:59:00 Encounter David Calderon 350.1.13.10 ity of [facility] 4.2.7.2.686 [place] [id number] [address] 2022-07-13 2022-07-13 Outpatient R ROSS [facility] ACO [id number] Univers 00:00:00 23:59:00 DAVID itgenoveva [facility] 2022-07-13 2022-07-[address] 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 10 ity of [place] [id number] Ny dical NAL 353 [facility] 2022-07-12 2022-07-12 Outpatient R DUSTY [facility] [id number] Univers 08:00:00 08:00:00 SENDIL mateusz [facility] 2022-06-20 2022-06-20 Case [facility] 1.2.840.114 [id number] Univers 00:00:00 00:00:00 Management Helen BRUNSON 350.1.13.10 ity of [place] [phone] Ny dical NAL 231 [facility] 2022-06-17 2022-06-17 [facility] [id number] Univers 13:15:00 13:15:00 GOKUL [facility] 2022-06-17 2022-06-17 Aircraft Navigator 2, Adc Lab [facility] 1.2.840.114 [id number] Univers 13:15:00 13:15:00 Visit Gokul Persaud 350.1.13.10 ity of [place] [phone] Ny dical NAL 353 [facility] 2022-06-17 2022-06-17 Orders Doctor USHA 1.2.840.114 [id number] Univers 00:00:00 00:00:00 Only Unassigned, ALEISHA 350.1.13.10 ity of [place] [facility] 4.2.7.2.686 [place] as [id number] [address] 2022-06-02 2022-06-02 Telephone [facility] 1.2.229.567 [id number] Univers 00:00:00 00:00:00 Josh Donald BRUNSON 350.1.13.10 ity of [place] [id number] Ny dical NAL 044 [facility] 2022-06-01 2022-06-01 Outpatient R ANDRES GARZON [facility] [id number] Univers 09:30:00 09:30:00 ANDRES GARZON [facility] 2022-05-31 2022-05-31 Patient Christopher [facility] 1.2.840.114 [id number] Univers 00:00:00 00:00:00 Secure Msg Josh Donald BOY 350.1.13.10 ity of [place] [id number] Ny dical NAL 044 [facility] 2022-05-31 2022-05-31 Case Tram, [facility] 1.2.840.114 [id number] Univers 00:00:00 00:00:00 Management Helen Cardenas BOY 350.1.13.10 ity of [place] [phone] Ny dical NAL [address] [place] [address] 2022-05-31 2022-05-31 Refill [facility] 1.2.840.114 [id number] Univers 00:00:00 00:00:00 Gokul BRUNSON 350.1.13.10 i ty of [place] [id number] Ny dical NAL 044 [facility] 2022-05-19 2022-05-19 Laboratory Only, Adc Pob2 Test [facility] 1.2 .840.114 [id number] Univers 15:00:00 15:15:00 Only Merritt Pettit 350.1.13 .10 ity of [place] [id number] [facility] 225 [facility] 2022-05-19 2022-05-19 Outpatient R GUERRERO [facility] [id number] Univers 15:00:00 14:09:59 MERRITT child [facility] 2022-05-13 2022-05-13 Outpatient R HUNG [facility] [id number] Univers 14:20:00 14:31:56 GOKUL child [facility] 2022-05-13 2022-05-13 Office [facility] 1.2.840.114 [id number] Univers 14:20:00 14:31:56 Visit Gokul BRUNSON 350.1.13.10 i ty of [place] [id number] Ny dical NAL 044 [facility] 2022-05-13 2022-05-13 Outpatient R HUNG [facility] [id number] Univers 14:20:00 14:31:56 GOKUL [facility] 2022-05-06 2022-05-06 [facility] [id number] Univers 13:30:00 13:30:00 ELANA [facility] 2022-04-01 2022-04-01 Outpatient [facility] [id number] Univers 10:15:00 10:15:00 ROSS [facility] 2022-03-31 2022-03-31 Outpatient R ASHOK KEVIN [facility] [id number] Univers 11:00:00 12:10:04 ity [facility] 2022-03-31 2022-03-31 Office Ashok [facility] 1.2.889.189 [id number] Univers 11:00:00 12:10:04 Visit Kiran BRUNSON 350.1.13.10 i ty of [place] [id number] Ny dical NAL 134 [facility] 2022-03-31 2022-03-31 Outpatient R KEVIN PULIDO [facility] [id number] Univers 11:00:00 12:10:04 ity [facility] 2022-03-25 2022-03-25 USHA Rizzo 1.2.840.114 [id number] Univers 00:00:00 00:00:00 Management Giuseppe MORAES 350.1.13.10 [facility] 4.2.7.2.686 [place] [id number] [address] 2022-03-23 2022-03-23 Outpatient R KEVIN PULIDO [facility] [id number] Univers 11:00:00 11:00:00 ity [facility] 2022-03-23 2022-03-23 Refill Ashok [facility] 1.2.040.887 [id number] Univers 00:00:00 00:00:00 Cam [place] 350.1.13.10 i ty of [place] [id number] Ny dical NAL 134 [facility] 2022-03-22 2022-03-22 Aircraft Navigator 2, Adc Lab [facility] 1.2.840.114 [id number] Univers 08:00:00 08:15:00 Visit Giuseppe Montano 350.1.13. 10 ity of [place] [id number] Ny dical NAL 353 [facility] 2022-03-22 2022-03-22 Outpatient R DUSTY [facility] [id number] Univers 08:00:00 08:00:00 SENDIL ity [facility] 2022-03-22 2022-03-22 Orders Doctor USHA 1.2.840.114 [id number] Univers 00:00:00 00:00:00 Only Unassigned, ALEISHA 350.1.13.10 ity of [place] [facility] 4.2.7.2.686 [place]andal as [phone] [address] 2022-03-17 2022-03-17 Refill Kevin Pulido [facility] 1.2.209.188 [id number] Univers 00:00:00 00:00:00 Kiran BRUNSON 350.1.13.10 i ty of [place] [id number] Ny dical NAL 134 [facility] 2022-03-08 2022-03-08 Refill Dusty [facility] 1.2.840.114 [id number] Univers 00:00:00 00:00:00 Giuseppe BRUNSON 350.1.13.10 ity of [place] [id number] Ny dical NAL 059 [facility] 2022-03-08 2022-03-08 Refill [facility] 1.2.840.114 [id number] Univers 00:00:00 00:00:00 Giuseppe BRUNSON 350.1.13.10 ity [facility] 4.[place] [id number] Ny dical NAL 059 Branch [facility] 2022-03-07 2022-03-07 Patient Christopher [facility] 1.2.840.114 [id number] Univers 00:00:00 00:00:00 Secure Msg Josh M SAM[place]ATT[place] 350.1.13.10 ity of [place] [id number] Ny dicsc NAL 044 [facility] 2022-03-05 2022-03-05 Telephone Hui [facility] 1.2.840.114 [id number] Univers 00:00:00 00:00:00 RanSpreadsave 350.1.13.10 it y of [place] - [id number] [address] 2022-03-03 2022-03-03 Urgent Erick Ann [facility] 1.2.840.114 [id number] Univers 17:40:00 18:00:00 Care Roberto Amesia HEALTH 350.1.13.10 ity of [place] 4.2.7.2.686 Randal as EJ?BLEA [id number] [address] MEDICAL OFFICE BUILDING 2022-03-03 2022-03-03 Outpatient R SETH [facility] [id number] Univers 17:40:00 17:55:20 ERICK ity of [facility] 2022-03-02 2022-03-02 Outpatient R [facility] [id number] Univers 08:00:00 08:00:00 ity of [facility] 2022-02-17 2022-02-17 Outpatient R KEVIN PULIDO [facility] [id number] Univers 15:15:00 15:15:00 ity of [facility] 2022-02-17 2022-02-17 Patient Kevin Pulido [facility] 1.2.128.519 [id number] Univers 00:00:00 00:00:00 Secure Msg Kiran BOY 350.1.13.10 ity of [place] [id number] Ny dical NAL 134 [facility] 2022-02-17 2022-02-17 Refill [place] Degroot [facility] 1.2.840.114 [id number] Univers 00:00:00 00:00:00 AYUSH 350.1.13.10 it y of [place] [id number] [address] 2022-02-17 2022-02-17 Refill [place] Degroot [facility] 1.2.840.114 [id number] Univers 00:00:00 00:00:00 AYUSH 350.1.13.10 it [place] [id number] [address] 2022-02-08 2022-02-08 Jorge Montano [facility] [id number] Univers 00:00:00 00:00:00 Giuseppe BRUNSON 350.1.13.10 ity [facility] [place].2.[place] [id number] Ny dical NAL 059 [facility] 2022-02-07 2022-02-07 Outpatient Leland MONTANO [facility] [id number] Univers 11:00:00 11:34:00 GIUSEPPE child [facility] 2022-01-20 2022-01-20 Outpatient KEVIN LANGLEY [facility] [id number] Univers 08:30:00 08:30:00 ity [facility] 2022-01-10 2022-01-10 Refill Houston Degroot [facility] 1.2.840.114 [id number] Univers 00:00:00 00:00:00 AYUSH 350.1.13.10 it y of [place] [id number] [address] 2021-12-01 2021-12-01 Outpatient Delma VELIZ [facility] [id number] Univers 16:00:00 15:48:33 JOSE garcia [facility] 2021-12-01 2021-12-01 Outpatient R JOLIE [facility] [id number] Univers 13:20:00 13:20:00 LEILA ity [facility] 2021-11-05 2021-11-05 Telephone Dusty [facility] 1.2.898.067 [id number] Univers 00:00:00 00:00:00 Giuseppe BRUNSON 350.1.13.10 ity of [facility] [place] [phone] Ny dicsc NAL 9 [facility] 2021-10-13 2021-10-13 Aircraft Navigator Nurse, Lorena Meadows [facility] ROLLE 1.2.8 40.114 [id number] Univers 09:30:00 09:30:00 Visit Kal Mauricio 350.1.13.10 [place] [id number] [address] 2021-10-13 2021-10-13 Outpatient R KAL MAURICIO [facility] [id number] Univers 09:30:00 08:06:28 ity [facility] 2021-10-07 2021-10-07 [facility] [id number] Univers 13:00:00 13:00:00 [facility]-10-07 2021-10-07 Patient Dusty [facility] 1.2.840.114 [id number] Univers 00:00:00 00:00:00 Secure Msg Giuseppe BRUNSON 350.1.13.10 ity of [facility] [place] [phone] Ny dicsc NAL [address] [place] [address] 2021-09-09 2021-09-09 Nurse Nurse, Lorena Meadows [facility] STAR 1.2.840. 114 [id number] Univers 16:20:00 16:40:00 Visit Kal Mauricio 350.1.13.10 it[place] [id number] [address] 2021-09-09 2021-09-09 Outpatient R KAL MAURICIO [facility] [id number] Univers 16:20:00 16:39:23 ity of [facility] 2021-08-31 2021-08-31 Refnadira Balderas [facility] 1.2.840.114 [id number] Univers 00:00:00 00:00:00 [facility] 350.1.13.10 it y of [place] [facility] 4.2.7.2.686 [place] as PROFESSIO [phone] Ny dical NAL [address] OFFICE BUILDING ONE 2021-08-31 2021-08-31 Patient Dusty [facility] 1.2.840.114 [id number] Univers 00:00:00 00:00:00 Secure Msg Giuseppe BRUNSON 350.1.13.10 ity of [facility] 4.[place] [phone] Ny dical NAL 059 [facility] 2021-08-23 2021-08-23 Outpatient R KEVIN PULIDO [facility] [id number] Univers 08:04:58 23:59:00 ity of [facility] 2021-08-23 2021-08-23 Hospital Kevin Pulido [facility] 1.2.840.114 [id number] Univers 08:00:00 23:59:00 Encounter Kirna BRUNSON 350.1.13.10 ity [facility] [place] [id number] [facility] [address] 2021-07-26 2021-07-26 Letter Kevin Pulido [facility] 1.2.962.540 [id number] Univers 00:00:00 00:00:00 (Out) Kiran BRUNSON 350.1.13.10 i ty of [facility] [place] [phone] Ny dical NAL 134 [facility] 2021-07-23 2021-07-23 Case Kevin Pulido [facility] 1.2.840.114 [id number] Univers 00:00:00 00:00:00 Management Cam AYUSH 350.1.13.10 ity [place] [id number] [address] 2021-07-21 2021-07-21 Outpatient R KEVIN PULIDO [facility] [id number] Univers 13:30:00 14:34:26 ity of [facility] 2021-07-21 2021-07-21 Office Kevin Pulido [facility] 1.2.530.685 [id number] Univers 13:05:17 14:34:26 Visit Kiran Brunson 350.1.13.10 i ty of [place] [phone] Ny dic[address] 2021-06-24 2021-06-24 Out[facility] [id number] Univers 15:00:00 15:00:00 SENDIL ity [facility] 2021-06-24 2021-06-24 [facility] 1.2.840.114 [id number] Univers 15:00:00 15:00:00 Visit Giuseppe BRUNSON 350.1.13.10 ity [facility] [place].2.[place] [phone] Ny dic[address] 2021-06-24 2021-06-24 Office [facility] 1.2.840.114 [id number] Univers 15:00:00 15:00:00 Visit Giuseppe BRUNSON 350.1.13.10 ity [facility] 4.2.[place].2.[place] [phone] Ny dic[address] 2021-06-24 2021-06-24 Outpatient R DUSTY [facility] [id number] Univers 15:00:00 13:51:15 SENDIL ity [facility] 2021-06-24 2021-06-24 Outpatient [facility] [id number] Univers 15:00:00 13:51:15 SENDIL ity [facility] 2021-06-24 2021-06-24 Office [facility] 1.2.840.114 [id number] Univers 12:47:26 13:51:15 Visit Sendrenee Brunson 350.1.13.10 it[place] of [place] [phone] Ny dical nal 059 [facility] 2021-06-22 2021-06-22 Orders Doctor KERR 1.2.840.114 [id number] Univers 00:00:00 00:00:00 Only UnassALEISHA blank 350.1.13.10 ity of [place] [facility] 4.2.7.2.686 Randal as [phone] [facility] [address] [place] 2021-06-18 2021-06-18 Nurse Nurse, [facility] 1.2.840. 114 [id number] Univers 16:11:08 16:38:18 Visit Jory Cruz 350.1.13. 10 [place] [phone] [facility] [address] [place] 2021-06-18 2021-06-18 Outpatient R [facility] [id number] Univers 09:20:00 09:20:00 ity of [facility] 2021-06-17 2021-06-17 Outpatient R GUERRERO [facility] [id number] Univers 16:45:00 16:45:00 MERRITT child [facility] 2021-06-17 2021-06-17 Laboratory Only, Adc Pob2 Test [facility] 1.2 .840.114 [id number] Univers 08:18:26 08:33:26 Only Merritt Pettit 350.1.13 .10 it[place] [phone] Ny dical nal 225 [facility] 2021-06-17 2021-06-17 Telephone USHA Mondragon 1.2.044.893 [id number] Univers 00:00:00 00:00:00 Luma MORAES 350.1.13.10 it y of [facility] 4.2.7.2.686 Randal as [phone] [facility] [address] [place] 2021-05-28 2021-05-28 Letter USHA Ayon 1.2.840.114 [id number] Univers 00:00:00 00:00:00 (Out) Nuha MORAES 350.1.13.10 it y of HOSPITAL 4.2.7.2.686 [place] as [phone] [facility] [address] [place] 2021-05-26 2021-05-26 Regina Ann [facility] 1.2.840.114 [id number] Univers 15:44:30 16:50:40 Care [facility] 350.1.13.10 it y of [place] 4.2.7.2.686 Randal as Ej?Blea [phone] Ny dical kney [address] [place] [facility] 2021-05-26 2021-05-26 Laboratory Only, Adc Pob2 Test [facility] 1.2 .840.114 [id number] Univers 14:58:40 15:13:40 Only Merritt Pettit 350.1.13 .10 [place] [phone] Ny dical nal 225 [facility] 2021-05-26 2021-05-26 Outpatient R GUERRERO [facility] [id number] Univers 15:00:00 15:00:00 [facility] 2021-05-24 2021-05-24 Refnadira [facility] 1.2.840.114 [id number] Univers 00:00:00 00:00:00 Citlalli Brunson 350.1.13.10 ity [facility] [place]2.[place].2.[place] [phone] Ny dical [facility] 134 [facility] 2021-05-13 2021-05-13 Outpatient R [facility] [id number] Univers 10:00:00 10:00:00 ity of [facility] 2021-05-13 2021-05-13 Nurse Nurse, Lkj Dori [facility] 1.2.840. 114 [id number] Univers 08:02:19 08:22:19 Visit Jory Cruz 350.1.13. 10 [place] [phone] [facility] [address] [place] 2021-05-07 2021-05-07 Outpatient R MOMO [facility] [id number] Univers 09:00:00 09:00:00 CITLALLI ity of [facility] 2021-05-04 2021-05-04 Nurse Nurse, [facility] 1.2.840. 114 [id number] Univers 09:08:24 09:28:24 Visit Flory Nagy 350.1.13.10 ity of Pediatric 4.2.7.2.686 [facility] [phone] [facility] [address] [place] 2021-05-04 2021-05-04 Outpatient R [facility] [id number] Univers 09:20:00 09:20:00 ity of [facility] 2021-04-29 2021-04-29 [facility] 1.2.840. 114 [id number] Univers 11:41:29 11:45:38 Visit Jory Cruz 350.1.13. 10 ity of Pediatric 4.2.7.2.686 [facility] [phone] [address] 2021-04-29 2021-04-29 Outpatient R [facility] [id number] Univers 11:20:00 11:20:00 ity of [facility] 2021-03-29 2021-03-29 Outpatient R [facility] [id number] Univers 15:00:00 15:00:00 ity of [facility] 2021-03-09 2021-03-09 Telephone Team, [facility] USHA 1..840.114 [id number] Univers 00:00:00 00:00:00 [facility] ALEISHA 350.1.13.10 it y of [facility] 4.2.7.2.686 [place] [phone] [facility] [address] [place] 2021-01-28 2021-01-28 Refill Adum, [facility] 1.2.840.114 [id number] Univers 00:00:00 00:00:00 Citlalli Brunson 350.1.13.10 ity of [place] 4.2.7.2.686 Jyoti Magallanes [phone] Ny dical [facility] 134 [facility] 2021-01-26 2021-01-26 Refill Adum, [facility] 1.2.840.114 [id number] Univers 00:00:00 00:00:00 Citlalli Rajani Brunson 350.1.13.10 ity of [place] 4.2.7.2.686 [place] Parisiessio [phone] Ny dical [address] 2021-01-21 2021-01-21 Outpatient [facility] [id number] Univers 16:50:00 16:50:00 MERRITT ity [facility] 2021-01-20 2021-01-20 Outpatient [facility] [id number] Univers 16:50:00 16:50:00 CLIFF ity [facility] 2021-01-06 2021-01-06 Telephone USHA Jacques 1.2.984.277 [id number] Univers 00:00:00 00:00:00 Erin MORAES 350.1.13.10 it y of [facility] 4.2.7.2.686 Randal as [phone] [facility] [address] [place] 2021-01-05 2021-01-05 Aircraft Navigator Lab, [facility] 1.2.840 .114 [id number] Univers 15:29:12 15:32:26 Visit Jory Cruz 350.1.13. 10 it[place].2.[place] [facility] [phone] [facility] [address] [place] 2021-01-05 2021-01-05 Outpatient R [facility] [id number] Univers 11:45:00 11:45:00 ity [facility] 2020-12-17 2020-12-17 Outpatient HOUSTON MILLER [facility] [id number] Univers 13:00:00 13:00:00 ity [facility] 2020-11-21 2020-11-21 Telephone USHA Reid 1.2.799.103 [id number] Univers 00:00:00 00:00:00 Ami MORAES 350.1.13.10 i ty of [facility] 4.2.7.2.686 Randal as [phone] [address] 2020-11-20 2020-11-20 Outpatient HOUSTON MILLER [facility] [id number] Univers 13:00:00 13:00:00 ity [facility] 2020-11-19 2020-11-19 Aircraft Navigator Lab, [facility] 1.2.840 .114 [id number] Univers 15:19:22 15:19:40 Visit Flory Nagy 350.1.13.10 [place].2.[place] [facility] [id number] [address] 2020-11-19 2020-11-19 Outpatient R LILO [facility] [id number] Univers 11:45:00 11:45:00 , FLORY child [facility] 2020-10-27 2020-10-27 Outpatient R MOMO [facility] [id number] Univers 09:30:00 09:30:00 CITLALLI [facility] 2020-10-26 2020-10-26 Letter USHA Ayon 1.2.840.114 [id number] Univers 00:00:00 00:00:00 (Out) Nuha MORAES 350.1.13.10 it y of HOSPITAL 4.2.7.2.686 Randal as [phone] [address] 2020-10-26 2020-10-26 Letter USHA Ayon 1.2.840.114 [id number] Univers 00:00:00 00:00:00 (Out) Nuha MORAES 350.1.13.10 it y of HOSPITAL 4.2.7.2.686 Randal as [phone] [address] 2020-10-23 2020-10-23 Aircraft Navigator Lab, [facility] 1.2.840 .114 [id number] Univers 13:52:39 14:07:39 Visit Kal Mauricio 350.1.13.10 [place].2.[place] [facility] [id number] [address] 2020-10-23 2020-10-23 Outpatient R MOMO [facility] [id number] Univers 08:00:00 08:00:00 [facility] 2020-10-21 2020-10-21 Outpatient [facility] [id number] Univers 09:30:00 09:30:00 CITLALLI ity of [facility] 2020-10-20 2020-10-20 Outpatient [facility] [id number] Univers 13:10:00 13:10:00 CLIFF ity of [facility] 2020-10-06 2020-10-06 Telephone MiriamdeonUSHA 1.2.840.114 [id number] Univers 00:00:00 00:00:00 Vesta MORAES 350.1.13.10 ity of [facility] 4.2.7.2.686 Randal as [phone] [address] 2020-10-05 2020-10-05 Aircraft Navigator Lab, Lorena Meadows [facility] Star 1.2.840 .114 [id number] Univers 09:44:03 09:46:41 Visit Alva Shen 350.1.13.10 it[place].2.[place] [facility] [phone] [address] 2020-10-05 2020-10-05 Outpatient R [facility] [id number] Univers 08:45:00 08:45:00 ity of [facility] 2020-09-29 2020-09-29 Urgent Provider, [facility] 1.2.840.114 [id number] Univers 14:44:29 16:21:38 Care Gi Jansen 350.1.13.10 ity of [place] 4.2.7.2.686 Randal as Professio [phone] [facility] [address] [place] Office [address] One 2020-09-29 2020-09-29 Outpatient R [facility] [id number] Univers 15:20:00 15:20:00 ity of [facility] 2020-09-28 2020-09-28 Nurse Nurse, Lorena Meadows [facility] Star 1.2.840. 114 [id number] Univers 12:48:48 14:01:43 Visit Kal Mauricio 350.1.13.10 it[place].2.[place] [facility] [id number] [address] 2020-09-28 2020-09-28 Outpatient R KAL MAURICIO [facility] [id number] Univers 10:20:00 10:20:00 ity of [facility] 2020-09-22 2020-09-22 Outpatient [facility] [id number] Univers 14:25:00 14:25:00 CLIFF ity [facility] 2020-09-02 2020-09-02 Orders Doctor USHA 1.2.840.114 [id number] Univers 00:00:00 00:00:00 Only Unassigned, ALEISHA 350.1.13.10 ity of [place] [facility] 4.2.7.2.686 Randla as [phone] [facility] [address] [place] 2020-08-24 2020-08-24 Office Andrey [facility] 1.2.840.114 [id number] Univers 09:49:07 10:48:02 Visit [facility] 350.1.13.10 it y of [place] Brunson 4.2.7.2.686 Randal as Elpidio [phone] [facility] [address] [place] Office Building One 2020-08-24 2020-08-24 Outpatient R ANDREY [facility] [id number] Univers 10:30:00 10:30:00 HORTENSIA ity [facility] 2020-08-13 2020-08-15 [facility] Keagan Vargas 1.2.840.1 14 [id number] Univers 02:30:00 04:36:00 Encounter Merritt Pettit 350.1.1 3.10 ity of Hospital 4.2.7.2.686 Randal as [phone] [facility] [address] [place] 2020-08-07 2020-08-07 Nurse Nurse, Lorena Meadows [facility] 1.2.840. 114 [id number] Univers 15:46:11 16:06:11 Visit Kal Mauricio 350.1.13.10 it[place].7.2.[place] [facility] [id number] [facility] [address] [place] 2020-08-07 2020-08-07 Outpatient R [facility] [id number] Univers 10:50:00 10:50:00 ity [facility] 2020-08-03 2020-08-03 Nurse Nurse, [facility] 1.2.840. 114 [id number] Univers 11:50:22 11:50:35 Visit Gokul Persaud 350.1.13.10 it[place].7.2.[place] [facility] [id number] [address] 2020-08-03 2020-08-03 Outpatient R [facility] [id number] Univers 11:20:00 11:20:00 GOKUL ity of [facility] 2020-07-31 2020-07-31 Nurse Nurse, [facility] 1.2.840.114 [id number] 09:35:08 10:16:50 Visit Madelinsveta Peacock 350.1.13.10 Pediatric 4.2.7.2.686 Clinic [phone] [facility] 2020-07-31 2020-07-31 Nurse Nurse, [facility] 1.2.840. 114 [id number] Univers 09:35:08 10:16:50 Visit Kal Mauricio Ayush 350.1.13.10 ity [place]2.7.2.[place] [facility] [phone] [address] 2020-07-31 2020-07-31 Outpatient R [facility] [id number] Univers 08:40:00 08:40:00 ity of [facility] 2020-07-02 2020-07-02 Orders Doctor KERR 1.2.840.114 [id number] Univers 00:00:00 00:00:00 Only Unassigned, ALEISHA 350.1.13.10 ity of [place] [facility] 4.2.7.2.686 Randal as [phone] [address] 2020-07-02 2020-07-02 Orders Doctor KERR 1.2.840.114 [id number] 00:00:00 00:00:00 Only Unassigned, ALEISHA 350.1.13.10 [place] [facility] 4.2.7.2.686 [id number] 009 2020-07-01 2020-07-01 Telephone [facility] 1.2.840.11 [id number] Univers 00:00:00 00:00:00 , Flory Haq Ayush 350.1.13.10 it y [place].7.2.[place] [facility] [phone] [address] 2020-07-01 2020-07-[address] [facility] 1.2.840.11 [id number] 00:00:00 00:00:00 , Flory Haq Ayush 350.1.13.10 Pediatric 4.2.7.2.686 Clinic [phone] [facility] 2020-06-29 2020-06-29 Nurse Nurse, [facility] 1.2.840. 114 [id number] [facility] 14:51:11 16:24:52 Visit Susysmiley Flory Haq Ayush 350.1.13.10 ity of [place]2.7.2.[place] [facility] [phone] [address] 2020-06-29 2020-06-29 Nurse Nurse, [facility] 1.2.840.114 [id number] 14:51:11 16:24:52 Visit Dori Ayush 350.1.13.10 Pediatric 4.2.7.2.686 Clinic [id number] [facility] 2020-06-29 2020-06-29 Outpatient R [facility] [id number] Univers 10:50:00 10:50:00 ity [facility] 2020-06-29 2020-06-29 Refill [facility] 1.2.840.114 [id number] Univers 00:00:00 00:00:00 Lorenza A Health 350.1.13.10 i ty of [place] 4.2.7.2.686 Randal as Professio [phone] Ny dical [address] Office [facility] 2020-06-29 2020-06-29 Refill Lili [facility] 1.2.840.114 [id number] 00:00:00 00:00:00 Lorenza A Health 350.1.13.10 [place] 4.2.7.2.686 Professio [phone] nal [facility] Office Building One 2020-06-23 2020-06-23 Aircraft Navigator Lab, [facility] 1.2.840 .114 [id number] Univers 16:11:55 16:26:55 Visit Kal Mauricio 350.1.13.10 ity of Pediatric 4.2.7.2.686 [place] [facility] [phone] [address] 2020-06-23 2020-06-23 Outpatient R [facility] [id number] Univers 11:15:00 11:15:00 ity [facility] 2020-06-19 2020-06-19 Refill [facility] 1.2.840.114 [id number] Univers 00:00:00 00:00:00 Lorenza A [facility] 350.1.13.10 i ty of [place] 4.2.7.2.686 [place]andal as Professio [phone] [address] Office Building One 2020-06-12 2020-06-12 Office [facility] 1.2.840.114 [id number] Univers 11:03:51 16:29:23 Visit Gokul Brunson 350.1.13.10 i [place] [phone] [address] 2020-06-12 2020-06-12 Outpatient R [facility] [id number] Univers 11:00:00 11:00:00 GOKUL genoveva [facility] 2020-06-05 2020-06-05 Outpatient R [facility] [id number] Univers 15:40:00 15:40:00 GOKUL [facility] 2020-06-05 2020-06-05 Office [facility] 1.2.840.114 [id number] Univers 13:41:38 14:38:52 Visit Gokul Brunson 350.1.13.10 i [place]2.[place].2.[place] [phone] [address] 2020-06-05 2020-06-05 Outpatient R [facility] [id number] Univers 13:40:00 13:40:00 GOKUL child [facility] 2020-06-03 2020-06-03 [facility] 1.2.840.114 [id number] Univers 13:08:01 23:59:00 Encounter Gokul Boy 350.1.13.10 ity of [place] 4.2.7.2.686 [place] [id number] [facility] [address] [place] 2020-06-03 2020-06-03 Laboratory Lab, Adc Fam Pob I [facility] 1.2. 840.114 [id number] Univers 12:51:08 13:11:08 Only Lorenza Pearson [facility] 350.1.13.10 ity of [place] 4.2.7.2.686 [place] as Professio [phone] [address] Office Building One 2020-06-03 2020-06-03 Outpatient R LILI [facility] [id number] Univers 13:00:00 13:00:00 LORENZA child [facility] 2020-06-03 2020-06-03 Orders Doctor USHA 1.2.840.114 [id number] Univers 00:00:00 00:00:00 Only Unassigned, ALEISHA 350.1.13.10 ity of [place] [facility] 4.2.7.2.686 Randal as [phone] [facility] [address] [place] 2020-06-02 2020-06-02 Patient [facility] 1.2.840.114 [id number] Univers 00:00:00 00:00:00 Secure Msg Gokul Boy 350.1.13.10 ity [place]2.[place].2.[place] [phone] Ny dicsc nal [address] [place] [address] 2020-05-29 2020-05-29 Telemedici [facility] 1.2.840.114 [id number] Univers 12:21:14 13:01:14 ne Visit Gokul Brunson 350.1.13.10 ity of [place] 4.2.7.2.[place] [phone] Ny dical nal [address] [place] [address] 2020-05-29 2020-05-29 [facility] [id number] Univers 13:00:00 13:00:00 GOKUL child [facility] 2020-05-27 2020-05-27 [facility] [id number] Univers 00:00:00 00:00:00 Lorenza [facility] [id number] i ty of [place] [id number] [place] as Professio [phone] [address] Office Building [facility] 2020-05-22 2020-05-22 [facility] 1.2.840.114 [id number] Univers 15:39:16 23:59:00 Encounter Lorenza [place] [id number] [place].2.[place] [phone] [facility] [address] 2020-05-22 2020-05-22 Urgent Pob1, Acute Care Clinic [facility] 1. 2.840.114 [id number] Univers 14:48:51 16:12:53 Care Gi [facility] [id number] ity of [place] 4.2.7.2.686 [place] Professio [phone] [address] Office [facility] 2020-05-22 2020-05-22 Outpatient R [facility] [id number] Univers 15:00:00 15:00:00 GI child [facility] 2020-05-20 2020-05-20 [facility] 1.2.840.114 [id number] Univers 00:00:00 00:00:00 [facility] [id number] it y of [place] 4.2.7.2.686 [place] as Professio [phone] [address] Office Building [facility] 2020-05-09 2020-05-09 Outpatient R [facility] [id number] Univers 14:00:00 14:00:00 GI child [facility] 2020-05-09 2020-05-09 Laboratory Lab, Adc Fam Pob I [facility] 1.2. 840.114 [id number] Univers 13:04:32 13:24:32 Only [facility] 350.1.13.10 ity of [place] 4.2.7.2.686 [place] Professio [phone] [place] dical [place]al [address] [place] [address] [facility] 2020-05-09 2020-05-09 Telephone Hui [facility] 1.2.840.114 [id number] Univers 00:00:00 00:00:00 [facility] 350.1.13.10 it y of [place] 4.2.7.2.686 [place] as Professio [phone] Ny dical nal 044 [place] Office [facility] 2020-05-05 2020-05-05 [facility] 1.2.840.114 [id number] Univers 13:12:18 23:59:00 Encounter Citlalli Rajani Brunson 350.1.13.10 it[place] of [place] [phone] [facility] [address] [place] 2020-05-05 2020-05-05 Office [facility] 1.2.840.114 [id number] Univers 14:01:07 15:21:05 Visit Citlalli Brunson 350.1.13.10 [place] [phone] Ny dical nal 134 [facility] 2020-05-05 2020-05-05 Outpatient R [facility] [id number] Univers 14:30:00 14:30:00 CITLALLI ity of [facility] 2020-05-04 2020-05-04 Telephone [facility] 1.2.009.521 [id number] Univers 00:00:00 00:00:00 Giuseppe Brunson 350.1.13.10 [place] [phone] Ny dicsc nal 059 [facility] 2020-05-03 2020-05-03 Telephone USHA White 1.2.928.205 [id number] Univers 00:00:00 00:00:00 Josh MORAES 350.1.13.10 i ty of [facility] 4.2.7.2.686 [place] [phone] [facility] [address] [place] 2020-05-03 2020-05-03 Letter USHA Ayon 1.2.840.114 [id number] Univers 00:00:00 00:00:00 (Out) Nuha MORAES 350.1.13.10 it y of [facility] 4.2.7.2.686 [place] [phone] [address] 2020-05-02 2020-05-02 Laboratory Lab, [facility] Pob I [facility] 1.2. 840.114 [id number] Univers 13:01:37 13:21:37 Only Gi [facility] 350.1.13.10 ity of [place] 4.2.7.2.686 [place] Professio [phone] Ny dical nal 044 [place] Office Building [facility] 2020-05-02 2020-05-02 Outpatient [facility] [id number] Univers 13:00:00 13:00:00 GI child [facility] 2020-04-30 2020-04-30 Laboratory Lab, [facility] Fam [facility] I [facility] 1.. 840.114 [id number] Univers 07:58:13 08:18:13 Only Gi [facility] 350.1.13.10 ity of [place] 4.2.7.2.686 [place] Professio [phone] Ny dical nal 044 [place] Office [facility] 2020-04-30 2020-04-30 Outpatient R SHMUEL [facility] [id number] Univers 08:00:00 08:00:00 GI itgenoveva [facility] 2020-04-28 2020-04-28 Urgent Provider, [facility] Urgent Care [facility] 1.2.840.114 [id number] Univers 13:37:53 14:47:52 Care Gi [facility] 350.1.13.10 ity of [place] 4.2.7.2.686 [place] Professio [phone] Ny dical nal 044 [place] Office Building [facility] 2020-04-28 2020-04-28 Outpatient R [facility] [id number] Univers 13:40:00 13:40:00 GI itgenoveva [facility] 2020-04-22 2020-04-24 Aircraft Navigator Lab, [facility] 1.2.840 .114 [id number] Univers 10:06:01 09:48:57 Visit Kal Mauricio 350.1.13.10 ity of [facility] 4.2.7.2.686 [facility] [phone] [address] 2020-04-24 2020-04-24 Case Adum, [facility] 1.2.840.114 [id number] Univers 00:00:00 00:00:00 Management Citlalli Brunson 350.1.13.10 [place] [phone] Ny dical nal 134 [facility] 2020-04-24 2020-04-24 Patient Ad, [facility] 1.2.840.114 [id number] Univers 00:00:00 00:00:00 Secure Msg Citlalli Gerard [place] 350.1.13.10 [place] [phone] Ny dical nal 134 [facility] 2020-04-22 2020-04-22 Outpatient R [facility] [id number] Univers 10:15:00 10:15:00 ity of [facility] 2020-04-21 2020-04-21 Office Ad, [facility] 1.2.840.114 [id number] Univers 15:50:33 17:02:58 Visit Citlalli Gerard Boy 350.1.13.10 [place] [phone] Ny dical nal 134 [facility] 2020-04-21 2020-04-21 Outpatient R AD, [facility] [id number] Univers 16:00:00 16:00:00 [facility]-04-07 2020-04-07 Outpatient R AD, [facility] [id number] Univers 11:15:00 11:15:00 CITLALLI [facility] 2020-04-01 2020-04-01 Laboratory Lab, Adc Fam Pob I [facility] 1.2. 840.114 [id number] Univers 11:38:45 11:58:45 Only Sarah Mahmood [facility] 350.1.13.10 ity of [place] 4.2.7.2.686 [place] Professio [phone] Ny dical nal [address] One 2020-04-01 2020-04-01 Outpatient R SARAH MAHMOOD [facility] [id number] Univers 11:20:00 11:20:00 ity of [facility] 2020-03-25 2020-03-25 Laboratory Lab, Adc Fam Pob I [facility] 1.2. 840.114 [id number] Univers 08:25:07 08:45:07 Only Lorenza Pearson [facility] 350.1.13.10 ity of [place] 4.2.7.2.686 [place] Professio [phone] Ny dical nal 044 [place] [address] Building One 2020-03-25 2020-03-25 Outpatient R LILI [facility] [id number] Univers 08:40:00 08:40:00 LORENZA ity of [facility] 2020-03-25 2020-03-25 Orders Doctor USHA 1.2.840.114 [id number] Univers 00:00:00 00:00:00 Only Unassigned, ALEISHA 350.1.13.10 ity of [place] [facility] 4.2.7.2.686 [place] as [phone] [facility] [address] 2020-03-24 2020-03-24 Nurse Nurse, Lorena Meadwos [facility] 1.2.840. 114 [id number] Univers 11:19:39 11:38:34 Visit Kal Mauricio 350.1.13.10 ity of [place] 4.2.7.2.686 [facility] [phone] [facility] [address] 2020-03-24 2020-03-24 Outpatient R [facility] [id number] Univers 10:40:00 10:40:00 ity of [facility] 2020-03-24 2020-03-24 [facility] 1.2.840.114 [id number] Univers 00:00:00 00:00:00 Management Helen Brunson 350.1.13.10 [place] [phone] [facility] 231 [facility] 2020-03-16 2020-03-16 Adolfo Ugalde [facility] 1.2.840.114 [id number] Univers 00:00:00 00:00:00 Management Helen Brunson 350.1.13.10 [place] [phone] [facility] 231 [facility] 2020-03-13 2020-03-13 Nurse Nurse, [facility] 1.2.840.114 [id number] Univers 09:16:34 09:16:49 Visit Helen Ugalde 350.1. 13.10 [place] [phone] [facility] 044 [facility] 2020-03-13 2020-03-13 Outpatient R TRAM [facility] [id number] Univers 09:00:00 09:00:00 HELEN child [facility] 2020-02-06 2020-02-06 Telephone USHA Pearson 1.2.151.583 [id number] Univers 00:00:00 00:00:00 Lorenza MORAES 350.1.13.10 i ty [facility] 4.2.7.2.686 [place] [phone] [address] 2020-02-05 2020-02-05 Urgent Pob1, Acute Care Clinic [facility] 1. 2.840.114 [id number] Univers 09:52:24 10:09:44 Care Hung [facility] 350.1.13.10 ity of Lorenza Pearson 4.2.7.2.686 [place] Professio [phone] [facility] [address] [place] [address] Building One 2020-02-05 2020-02-05 Outpatient R HUNG [facility] [id number] Univers 10:00:00 10:00:00 GOKUL child [facility] 2020-01-23 2020-01-23 Outpatient R KEVIN PULIDO [facility] [id number] Univers 13:30:00 13:30:00 itgenoveva [facility] 2019-12-25 2019-12-25 Outpatient R ANTONIA [facility] [id number] Univers 18:00:00 18:00:00 ATTENDING ity [facility] 2019-12-20 2019-12-20 Refill Kevin Pulido [facility] 1.2.764.165 [id number] Univers 00:00:00 00:00:00 Cam [place] 350.1.13.10 i ty [place] [phone] Ny dical nal [address] [place] [address] 2019-12-20 2019-12-20 Patient Kevin Pulido [facility] 1.2.748.624 [id number] Univers 00:00:00 00:00:00 Secure Msg Cam [place] 350.1.13.10 [place] [phone] Ny dicsc nal [address] [place] [address] 2019-12-19 2019-12-19 Refill Kevin Pulido [facility] 1.2.594.771 [id number] Univers 00:00:00 00:00:00 Cam [place] 350.1.13.10 i [place]2.[place] [phone] Ny dical nal [address] [place] [address] 2019-09-13 2019-09-13 Patient Doctor [facility] 1.2.840.114 [id number] Univers 00:00:00 00:00:00 Secure Msg Unassigned, [place] 350.1.13.10 ity of [place].2.[place] [phone] Ny dical nal 134 [facility] 2019-05-16 2019-05-16 [facility] 1.2.840.114 [id number] Univers 08:24:54 23:59:00 Encounter lake, PRIMARY 350.1.13.10 ity of [place].2.[place] [phone] Ny dicsc 036 [place] 2019-05-09 2019-05-09 Orders Doctor USHA 1.2.840.114 [id number] Univers 00:00:00 00:00:00 Only Unassigned, ALEISHA 350.1.13.10 ity of [place] [facility] 4.2.7.2.686 [place] as [phone] [address] 2019-05-06 2019-05-06 Kevin Rodriguez [facility] 1.2.439.927 [id number] Univers 00:00:00 00:00:00 Kiran Brunson 350.1.13.10 i ty of [place] 4.2.7.2.686 Jyoti Magallanes [phone] Ny dical nal [address] Building Results Test Description Test Time Test Comments Results Result Comments Source POCT URINALYSIS W/O SPECIFIC GRAVITY 2022-09-13 16:43:00 Test Item Value Reference Range Interpretation Comme nts POCT PH U (test code = 3254) 5 mg/dl 5-8 POCT U LEUK EST (test code = 3263) ++ Negative - Negative POCT U NIT (test code = 3262) Negative Negative - Negative POCT U PROT (test code = 3259) Negative Negative - Negative POCT U GLU (test code = 3256) Negative - Negative POCT U KETONE (test code = 3258) Negative Negative - Negative POCT U BLD (test code = 3257) Negative - Negative [facility] URINALYSIS W/O SPECIFIC [id number] 16:43:00 Test Item Value Reference Range Interpretation Comments POCT PH U (test code = 3254) 5 mg/dl 5-8 POCT U LEUK EST (test code = ++ Negative - Negative 3263) POCT U NIT (test code = 3262) Negative Negative - Negative POCT U PROT (test code = 3259) Negative Negative - Negative POCT U GLU (test code = 3256) Negative - Negative POCT U KETONE (test code = 3258) Negative Negative - Negative POCT U BLD (test code = 3257) Negative - Negative [facility] MOLECULAR [id number] 21:41:44 Test Item Value Reference Range Interpretation Comments POCT Molecular Strep (test code = Negative Negative 30406-6) Lab Interpretation (test code = Normal 45804-7) [facility] SARS-COV-2 ANTIGEN (BINAX NOW)2022-08-11 21:35:00 Test Item Value Reference Range Interpretation Comments POCT SARS-COV-2 ANTIGEN Not Detected Not Detected (test code = 58441-2) On board controls Yes acceptable with C Line (test code = 3574) ROSS (test code = ROSS) accurate development and interpretation of all internal controls Lab Interpretation Normal (test code = 41079-8) [facility] [id number] 21:33:35 Test Item Value Reference Range Interpretation Comments POCT Molecular FluA (test code = Negative Negative 44896-2) POCT Molecular FluB (test code = Negative Negative 54463-3) Lab Interpretation (test code = Normal 07741-0) [facility]
--- NOTE | 2022-11-13 20:30 | P.HP ---
Certification for Inpatient Patient admitted to: Inpatient With expected LOS: >2 Midnights Patient will require the following post-hospital care: None Practitioner: I am a practitioner with admitting privileges, knowledge of patient current condition, hospital course, and medical plan of care. Services: Services provided to patient in accordance with Admission requirements found in Title 42 Section 412.3 of the Code of Federal Regulations Patient History Date of Service: 11/13/22 Reason for admission: Acute pancreatitis History of Present Illness: 46-year-old female with history of rmd-pcenrzk-ddrprycfp diabetes, hypertension, hyperlipidemia presented to outside hospital with complaints of abdominal pain since around noon today. Her blood was significantly lipemic limiting the ability to fully evaluate blood chemistries, her CBC was unremarkable. CT abdomen pelvis without IV contrast was performed which revealed mild pancreatitis. Patient with history of cholecystectomy, she denies alcohol use, she has had very high triglycerides in the past. Suspect hypertriglyceridemia induced pancreatitis. Patient reports that she was taken off of her antidiabetic agents aside from Ozempic in the last couple of months. Last A1c she reports 6.7 in July 2022. She is admitted to ICU here as she will likely require insulin drip for hypertriglyceridemia induced pancreatitis. Allergies meperidine [From Demerol] Allergy (Intermediate, Verified 09/30/16 03:41) Rash Home Medications: Aspirin [Aspirin EC 81 MG] 81 mg PO DAILY 30 Days #30 tablet. 06/08/19 Insulin Lispro MIX 75/25 [Humalog Mix 75/25*] 35 unit SQ BID 06/08/19 Lisinopril/Hydrochlorothiazide [Lisinopril-Hctz 20-25 mg Tab] 1 each PO DAILY 06/08/19 Metoprolol Tartrate [Lopressor] 100 mg PO DAILY 06/08/19 Multivitamin [Multivitamins] 1 each PO DAILY 06/08/19 Murphy-3/Dha/Epa/Fish Oil [Murphy 3 500 Softgel] 1 each PO DAILY 06/08/19 gemfibroziL [Lopid*] 600 mg PO DAILY 06/08/19 - Past Medical/Surgical History Diabetic: Yes -: Diabetes mellitus type 2 -: Hypertension -: History of Wilder's palsy -: Hyperlipidemia -: ABSCESS -: CELLULITIS -: x3 -: tubal ligation -: tummy tuck, breast reduction and liposuction -: T&A -: cholecystectomy -: History of ectopic -: ERCP Psychosocial/ Personal History: The patient is , she has 3 children, 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 - Family History Father -: Diabetes Mother -: Diabetes - Social History Alcohol use: Yes CD- Drugs: No Caffeine use: Yes Place of Residence: Home Review of Systems 10-point ROS is otherwise unremarkable Gastrointestinal: Nausea, Abdominal Pain Physical Examination - Physical Exam General: Alert, In no apparent distress, Oriented x3 HEENT: Atraumatic, PERRLA, Mucous membr. moist/pink, EOMI, Sclerae nonicteric Neck: Supple, 2+ carotid pulse no bruit, No LAD, Without JVD or thyroid abnormality Respiratory: Clear to auscultation bilaterally, Normal air movement Cardiovascular: Regular rate/rhythm, Normal S1 S2 Capillary refill: <2 Seconds Gastrointestinal: Normal bowel sounds, Tenderness (Moderate epigastric tenderness) Musculoskeletal: No tenderness Integumentary: No rashes Neurological: Normal speech, Normal strength at 5/5 x4 extr, Normal tone, Normal affect Assessment and Plan - Plan Assessment: Acute pancreatitis Diabetes mellitus type 0xom-khsevhp-oqdcewjot Hypertension Hyperlipidemia Plan: Acute pancreatitis Suspected etiology is hypertriglyceridemia, blood reportedly significantly lipemic at outside facility. Stat chemistry ordered including CMP, lipase, lipid panel. Continue aggressive IV fluids, as needed pain medications. If triglycerides significantly elevated will require insulin drip for aggressive management. NPO. Serial abdominal exams. Patient with previous cholecystectomy, denies alcohol use. Diabetes mellitus type 1znl-tpultoo-bufirusjd Obtain A1c, patient only on Ozempic at this time. Patient likely require insulin drip for hypertriglyceridemia. Hourly Accu-Cheks in that case if not every 6 hours Accu-Cheks will be appropriate. Hypertension Hold oral medications tonight, restart when appropriate. Hyperlipidemia Patient reports that she was taken off of her fenofibrate when her labs came back with significant improvement towards the end of last year. Likely will require medication for hyperlipidemia/hypertriglyceridemia at discharge. DVT PPX: Lovenox Code status: Full Discharge Plan: Home Plan to discharge in: 72 Hours - Advance Directives Does patient have a Living Will: No Does patient have a Durable POA for Healthcare: No - Code Status/Comfort Care Code Status Assessed: Yes (Full code) Critical Care: No Time Spent Managing Pts Care (In Minutes): 70
[2022-11-13] MEDS: Ringers Lactate 1,000 ML IV SCH (20:48)
[2022-11-13] MEDS: HYDROMORPHONE HCL 1 MG/ML INJ IV PRN (20:48)
[2022-11-13] MEDS: ONDANSETRON 4 MG/2 ML VIAL IV PRN (20:48)
[2022-11-13 21:35] LABS: ALT/SGPT 48 U/L (13-56); AST/SGOT 30 U/L (15-37); Albumin 3.4 g/dL (3.4-5.0); Alkaline Phosphatase 75 U/L (45-117); BUN Blood Urea Nitrogen 14 mg/dL (7-18); Bicarbonate 23 mmol/L (21-32); Bilirubin Total 0.4 mg/dL (0.2-1.0); Glomerular Filtration Rate 87 ml/min (=/>90); Glucose Level 354 mg/dL (74-106); HDL Cholesterol 15 mg/dL (40-60); Lipase 3932 U/L (73-393); Magnesium 1.8 mg/dL (1.6-2.4); Potassium 3.8 mmol/L (3.5-5.1); Protein, Total 7.5 g/dL (6.4-8.2); Sodium Level 137 mmol/L (136-145)
[2022-11-13] MEDS ORDERED: D50W 25 GM/50 ML SYRINGE IV PRN (21:39)
[2022-11-13] MEDS ORDERED: GLUCAGON 1 MG/VIAL IM PRN (21:39)
[2022-11-13 21:46] LABS: LDL, Direct 18 mg/dL (100-129)
[2022-11-13] MEDS ORDERED: D10W 250 ML IV PRN (22:14)
[2022-11-14] MEDS: INSULIN -REGULAR HUMAN 50 UNIT/0.5 ML ML SQ SCH ×2 (00:14→06:05)
[2022-11-14] MEDS: HYDROMORPHONE HCL 1 MG/ML INJ IV PRN ×8 (01:00→23:45)
[2022-11-14] MEDS: Ringers Lactate 1,000 ML IV SCH (03:18)
[2022-11-14] MEDS ORDERED: Ringers Lactate 1,000 ML IV ONE ×2 (04:45→17:42)
[2022-11-14 05:21] LABS: Absolute Lymphocytes (CBC) 2.6 K/uL (0.7-4.9); Hematocrit 38.4 % (36.0-45.0); MCV 89.3 fL (80-100); MPV 8.1 fL (7.6-11.3)
[2022-11-14 05:52] LABS: Blood Morphology Comment NOT SEEN (NOT SEEN); Platelet Estimate ADEQ
[2022-11-14 06:09] LABS: Albumin 3.3 g/dL (3.4-5.0); Bilirubin Total 0.5 mg/dL (0.2-1.0); Phosphorus 2.8 mg/dL (2.5-4.9); Protein, Total 7.4 g/dL (6.4-8.2); Thyroid Stimulating Hormone 0.392 uIU/mL (0.358-3.740)
[2022-11-14 06:10] LABS: Potassium 3.7 mmol/L (3.5-5.1)
[2022-11-14 06:12] LABS: LDL, Direct 248 mg/dL (100-129)
[2022-11-14] MEDS ORDERED: D50W 25 GM/50 ML SYRINGE IV PRN (06:25)
[2022-11-14] MEDS ORDERED: MAGNESIUM SULFATE 1 gm IVPB 1 GM/100 ML BAG IV ONE (06:25)
[2022-11-14] MEDS: INSULIN -REGULAR HUMAN 100 UNIT in NA CHLORIDE 0.9% 100 ML IV SCH ×2 (08:10→20:13)
[2022-11-14] MEDS: D5NS KCL 20MEQ 20 MEQ/1,000 ML BAG IV SCH ×4 (08:10→23:31)
[2022-11-14] MEDS: ENOXAPARIN 40 MG/0.4 ML SQ SCH (08:11)
[2022-11-14] MEDS: ONDANSETRON 4 MG/2 ML VIAL IV PRN (08:15)
[2022-11-14] MEDS ORDERED: KCL 20 MEQ/100 mL IVPB 20 MEQ/100 ML BAG IV SCH (09:00)
[2022-11-14 10:48] LABS: Specific Gravity 1.022 (1.005-1.030); Urine Bacteria None Seen /HPF (<20); Urine Bilirubin NEGATIVE (Negative); Urine Blood Trace (Negative); Urine Clarity Clear (Clear); Urine Color Light-Yellow (Yellow); Urine Glucose 4+ (Over) (Negative); Urine Mucus Slight /HPF (None Seen); Urine Protein TRACE (Negative); Urine RBC <5 /HPF (None Seen); Urine Urobilinogen Normal (Normal); Urine pH 5.5 (5.0-7.0)
--- NOTE | 2022-11-14 16:13 | P.PN ---
Date of Service: 11/14/22 Subjective: no significant improvement continues with pain, nausea ROS: 10 point ROS as noted above, otherwise negative Physical exam GEN: Alert, oriented, appears uncomfortable HEENT: Normal conjunctiva, sclera anicteric CV: sinus tachycardia, no edema Pulm: Nonlabored respirations on room air ABD: Soft, moderate tenderness to palpation in epigastrium, nondistended Integumentary: No rashes Neuro: Normal speech, normal affect Problem List Acute pancreatitis secondary to hypertriglyceridemia Diabetes mellitus type 3zde-ykxlgjq-pecptqour Hypertension Hyperlipidemia Acute pancreatitis secondary to hypertriglyceridemia Diabetes mellitus type 9oms-juqysit-pcqfphlmu secondary to hypertriglyceridemia, blood reportedly significantly lipemic at outside facility. Ozembic may have contributed as well. patient with at least 2 prior episodes of pancreatitis, one of which was secondary to gallstone pancreatitis, s/p cholecystectomy several years ago initial TG mildlty elevated, but >4k this morning tachycardic insulin drip started, D5NS started as well, avoid hypoglycemia, monitor electrolytes Stat chemistry ordered including CMP, lipase, lipid panel. Continue aggressive IV fluids, as needed pain medications. If triglycerides significantly elevated will require insulin drip for aggressive management. NPO. Serial abdominal exams. Patient with previous cholecystectomy, denies alcohol use. if no improvement, consider CT abd/pelvis pancreas protocol CT abd/pelvis done at [place] - reported mild inflammation but no cyst, no abscess Hypertension Hyperlipidemia Patient reports that she was taken off of her fenofibrate when her labs came back with significant improvement towards the end of last year. VTE: lovenox Code: full Dispo: home, ~3 days Critical care time: 35 minutes spent on direct care of the patient, myug-oq-emco time, discussing with nursing staff and review of EMR
[2022-11-14 19:24] LABS: Magnesium 1.8 mg/dL (1.6-2.4); Potassium 3.6 mmol/L (3.5-5.1)
[2022-11-14 19:27] LABS: LDL, Direct 205 mg/dL (100-129)
[2022-11-15] MEDS: HYDROMORPHONE HCL 1 MG/ML INJ IV PRN ×8 (02:53→23:10)
[2022-11-15] MEDS ORDERED: METOPROLOL TARTRATE 5 MG/5 ML INJ IV STA (03:03)
[2022-11-15] MEDS: D5NS KCL 20MEQ 20 MEQ/1,000 ML BAG IV SCH ×4 (04:04→17:17)
[2022-11-15] MEDS: METOPROLOL TAR 50 MG TAB PO SCH (06:02)
[2022-11-15] MEDS: INSULIN -REGULAR HUMAN 100 UNIT in NA CHLORIDE 0.9% 100 ML IV SCH (06:53)
[2022-11-15 07:34] LABS: Absolute Lymphocytes (CBC) 2.2 K/uL (0.7-4.9); Hematocrit 35.1 % (36.0-45.0); Lymphocytes % 18.1 % (15.3-44.8); MCV 90.7 fL (80-100); MPV 8.5 fL (7.6-11.3); RBC Red Blood Cell Count 3.87 M/uL (3.86-4.86)
[2022-11-15 07:45] LABS: ALT/SGPT 63 U/L (13-56); AST/SGOT 59 U/L (15-37); Albumin 2.2 g/dL (3.4-5.0); Alkaline Phosphatase 51 U/L (45-117); Bicarbonate 24 mmol/L (21-32); Bilirubin Total 0.9 mg/dL (0.2-1.0); Glomerular Filtration Rate 97 ml/min (=/>90); Glucose Level 259 mg/dL (74-106); Lipase 8105 U/L (73-393); Magnesium 1.7 mg/dL (1.6-2.4); Potassium 3.8 mmol/L (3.5-5.1); Protein, Total 5.6 g/dL (6.4-8.2); Sodium Level 141 mmol/L (136-145)
[2022-11-15 07:57] LABS: BUN Blood Urea Nitrogen < 3 mg/dL (7-18)
[2022-11-15 07:58] LABS: Phosphorus 0.7 mg/dL (2.5-4.9)
[2022-11-15 07:59] LABS: LDL, Direct 44 mg/dL (100-129)
[2022-11-15] MEDS ORDERED: POTASSIUM PHOS 30 MM in NA CHLORIDE 0.9% 500 ML IV ONE (08:02)
[2022-11-15] MEDS: ENOXAPARIN 40 MG/0.4 ML SQ SCH (08:23)
[2022-11-15] MEDS: lisinopriL 20 MG TAB PO SCH (08:23)
[2022-11-15] MEDS ORDERED: hydroCHLOROthiazide 25 MG TAB PO SCH (09:00)
--- NOTE | 2022-11-15 09:00 | RAD REPORT ---
EXAM DESCRIPTION: RAD - Chest Single View - 11/15/2022 8:40 am CLINICAL HISTORY: Wheezing, dyspnea Chest pain. COMPARISON: Chest Single View dated 08/12/2020; Chest Single View dated 06/07/2019; Chest Single View dated 06/06/2019; Chest Single View dated 02/09/2018 FINDINGS: Portable technique limits examination quality. Significant underinflation of the lungs is seen with mild bilateral pulmonary opacities. This may rep resent simply a sequelae of underinflation in vascular crowding, or mild pulmonary edema. The heart i s normal in size. No displaced fractures.
[2022-11-15] MEDS ORDERED: FUROSEMIDE 40 MG/4 ML VIAL IV ONE (11:22)
[2022-11-15] MEDS ORDERED: DIPHENHYDRAMINE 50 MG/ML VIAL IV ONE (11:51)
--- NOTE | 2022-11-15 13:58 | P.PN ---
Subjective Date of Service: 11/15/22 Chief Complaint: Acute pancreatitis Patient is complaining of shortness of breath at rest and with slightest exertion. Also noted to be wheezing. She is complaining of thirst. Physical Examination - Vital Signs Temperature: 99.7 F Blood Pressure: 117/86 Pulse: 110 Respirations: 19 Pulse Ox (%): 95 - Studies Laboratory Data (last 24 hrs) 11/15/22 07:06: Triglycerides 844 H, LDL Cholesterol Direct 44 L 11/15/22 07:06: Sodium 141, Potassium 3.8, BUN < 3 L, Creatinine 0.77, Glucose 259 H, Phosphorus 0.7 L*, Magnesium 1.7, Total Bilirubin 0.9, AST 59 H, ALT 63 H, Alkaline Phosphatase 51 D, Lipase 8105 H 11/15/22 07:06: WBC 12.30 H, Hgb 12.3 D, Hct 35.1 L, Plt Count 176 11/14/22 18:23: Sodium Cancelled, Potassium Cancelled, BUN Cancelled, Creatinine Cancelled, Glucose Cancelled, Triglycerides 2269 H, LDL Cholesterol Direct 205 H 11/14/22 18:23: Sodium 139, Potassium 3.6, BUN 4 L, Creatinine 0.75, Glucose 257 H, Magnesium 1.8 Assessment And Plan - Plan Physical exam GEN: Alert, oriented, mildly dyspneic HEENT: Oxygen by nasal cannula CV: sinus tachycardia, no edema Pulm: Tachypneic, mild respiratory distress, mild scattered rhonchi ABD: Soft, nontender ,nondistended Integumentary: No rashes Neuro: Normal speech, normal affect Problem List Acute pancreatitis secondary to hypertriglyceridemia Diabetes mellitus type 8gyx-zthakwu-mcarpjnse Hypertension Hyperlipidemia Acute respiratory failure with hypoxia Acute pancreatitis secondary to hypertriglyceridemia Diabetes mellitus type 4zah-ngwnjuj-txvavvcyf Acute pancreatitis secondary to hypertriglyceridemia. Triglyceride level trended down to 844. Continue insulin drip for target triglyceride level of less than 500. Ozembic may have contributed to the acute pancreatitis. Lipase level is fluctuating. Continue to trend lipase Continue to trend triglyceride levels. Keep NPO. Serial abdominal exams. CT abd/pelvis done at [place] - reported mild inflammation but no cyst, no abscess. Repeat CT abdomen Patient reports that she was taken off of her fenofibrate when her labs came back with significant improvement last year. She will need prescription for fenofibrate on discharge. Hypertension She is currently normotensive Continue metoprolol. Acute respiratory failure with hypoxia Chest x-ray today demonstrates findings suggestive of mild pulmonary edema. Patient given a dose of Lasix but her face became flushed and was itching. Sulfa allergy suspected. Only 1 dose of Lasix was given. Patient given Benadryl. Hydrochlorothiazide also held. VTE: lovenox Code: full Dispo: home upon discharge.
--- NOTE | 2022-11-15 16:11 | RAD REPORT ---
EXAM DESCRIPTION: CT - Abdomen Pelvis Wo Contrast - 11/15/2022 3:20 pm CLINICAL HISTORY: Follow-up pancreatitis COMPARISON: 02/09/2017 TECHNIQUE: CT imaging of the abdomen and pelvis was performed without IV contrast. Multiplanar refor mats were generated and reviewed. All CT scans are performed using dose optimization technique as appropriate and may include automated exposure control or mA/KV adjustment according to patient size. FINDINGS: Small bilateral layering effusions, larger on the left, with underlying subsegmental atele ctasis. Diffuse hepatic parenchymal hypoattenuation suggesting steatosis. Patient status post cholecystectomy . The spleen is unremarkable. Pronounced inflammatory fat stranding is seen at the level of the retroperitoneum, center of the dist al body/ tail of the pancreas, with fluid tracking along the left paracolic gutter. An ill-defined ov oid fluid collection is seen just above the tail of the pancreas, measuring 3.8 x 2.3 centimeter in g reatest axial dimensions, and 3.1 centimeter in greatest craniocaudal extent. A loculated the elongat ed fluid collection is seen along the anterior margin of the perinephric space on the left, with mild ly hyperdense wall, measuring 1.7 x 1.5 centimeter in greatest axial dimensions, and 3.2 centimeter i n greatest craniocaudal extent. No soft tissue gas. There is short segment wall thickening along the mid to distal the ascending colon, likely reactive a nd related to the contiguous inflammatory changes. No hydronephrosis or suspicious renal mass. No significant adrenal finding. Isodense masses and pyel onephritis cannot be excluded in the absence of IV contrast. Mildly prominent small bowel loops in the central abdomen could reflect mild ileus. No free air. Smal l volume free fluid layering in the pelvis. Small volume fluid extends along the right paracolic gutt er and surrounds the appendix, likely extension from the retroperitoneal and pelvic fluid. No hernia, mass or bulky lymphadenopathy. The urinary bladder is without significant finding. No suspicious bony findings. IMPRESSION: Inflammatory changes within the retroperitoneum, compatible with given history of acute pancreatitis. Ill-defined ovoid peripancreatic fluid collection seen just above the tail of the pancreas measuring up to 3.8 centimeter in greatest dimension. The second small collection along the anterior margin of the left perinephric space, measuring 3.2 centimeter. Mildly prominent small bowel loops within the central abdomen, suggesting a mild degree of ileus. Small volume free fluid in the pelvis. Other details as above.
[2022-11-15] MEDS ORDERED: GLUCAGON 1 MG/VIAL IM PRN (16:56)
[2022-11-15] MEDS ORDERED: D10W 250 ML BAG IV PRN (17:06)
[2022-11-15] MEDS ORDERED: INSULIN -REGULAR HUMAN 100 UNIT in NA CHLORIDE 0.9% 100 ML IV SCH (18:00)
[2022-11-15 19:48] LABS: LDL, Direct 74 mg/dL (100-129)
[2022-11-15] MEDS ORDERED: POTASSIUM PHOS IN 0.9 % NACL 15 MMOL/250 ML BAG IV ONE (21:51)
[2022-11-15] MEDS ORDERED: MAGNESIUM SULFATE 1 gm IVPB 1 GM/100 ML BAG IV ONE (21:51)
[2022-11-16] MEDS: HYDROMORPHONE HCL 1 MG/ML INJ IV PRN ×8 (02:16→23:22)
[2022-11-16] MEDS: D5NS KCL 20MEQ 20 MEQ/1,000 ML BAG IV SCH (05:29)
--- NOTE | 2022-11-16 06:42 | ECHO ---
HEIGHT: 5 ft 0 in WEIGHT: 165 lb 0 oz DATE OF STUDY: 11/15/[address]: Vishnu Franco MD 2-DIMENSIONAL: YES M.MODE: YES DOPPLER: YES COLOR FLOW: YES TDS: PORTABLE: YES DEFINITY: BUBBLE STUDY: DIAGNOSIS: PULMONARY EDEMA CARDIAC HISTORY: CATHERIZATION: NO SURGERY: NO PROSTHETIC VALVE: NO PACEMAKER: NO MEASUREMENTS (cm) DIASTOLIC (NORMALS) SYSTOLIC (NORMALS) IVSd 0.9 (0.6-1.2) LA Diam 2.5 (1.9-4.0) LVEF 67% LVIDd 3.4 (3.5-5.7) LVIDs 2.2 (2.0-3.5) %FS 36% LVPWd 1.0 (0.6-1.2) Ao Diam 2.5 (2.0-3.7) 2 DIMENSIONAL ASSESSMENT: RIGHT ATRIUM: NORMAL LEFT ATRIUM: NORMAL RIGHT VENTRICLE: NORMAL LEFT VENTRICLE: NORMAL TRICUSPID VALVE: TRACE TRICUSPID REGURGITATION MITRAL VALVE: TRACE MITRAL REGURGITATION PULMONIC VALVE: NORMAL AORTIC VALVE: NORMAL PERICARDIAL EFFUSION: NONE AORTIC ROOT: NORMAL LEFT VENTRICULAR WALL MOTION: NORMAL DOPPLER/COLOR FLOW: SEE BELOW COMMENTS: 1. NORMAL LEFT VENTRICULAR EJECTION FRACTION 60-65% 2. NORMAL WALL MOTION 3. NORMAL DIASTOLIC FUNCTION 4. TRACE MITRAL REGURGITATION 5. TRACE TRICUSPID REGURGITATION TECHNOLOGIST: TONIA RAGSDALE
[2022-11-16 06:46] LABS: Absolute Lymphocytes (CBC) 1.9 K/uL (0.7-4.9); Hematocrit 33.5 % (36.0-45.0); Lymphocytes % 20.7 % (15.3-44.8); MCV 90.7 fL (80-100); MPV 8.5 fL (7.6-11.3); RBC Red Blood Cell Count 3.69 M/uL (3.86-4.86)
[2022-11-16 07:05] LABS: Albumin 2.3 g/dL (3.4-5.0); Phosphorus 1.2 mg/dL (2.5-4.9); Protein, Total 6.2 g/dL (6.4-8.2)
[2022-11-16 07:16] LABS: Potassium 3.5 mmol/L (3.5-5.1)
[2022-11-16] MEDS: METOPROLOL TAR 50 MG TAB PO SCH (07:43)
[2022-11-16] MEDS: ENOXAPARIN 40 MG/0.4 ML SQ SCH (07:43)
[2022-11-16] MEDS: lisinopriL 20 MG TAB PO SCH (07:45)
[2022-11-16] MEDS ORDERED: FUROSEMIDE 40 MG/4 ML VIAL IV ONE (08:21)
[2022-11-16] MEDS ORDERED: ALBUTEROL 2.5 MG/3 ML NEB SOL NEB PRN ×2 (08:22→13:00)
[2022-11-16] MEDS ORDERED: KCL 20 MEQ/100 mL IVPB 20 MEQ/100 ML BAG IV SCH (12:00)
[2022-11-16] MEDS ORDERED: POTASSIUM PHOS IN 0.9 % NACL 15 MMOL/250 ML BAG IV ONE (12:58)
[2022-11-16] MEDS: Ringers Lactate 1,000 ML IV SCH (13:00)
--- NOTE | 2022-11-16 13:53 | P.PN ---
Subjective Date of Service: 11/16/22 Chief Complaint: Acute pancreatitis Patient is complaining of shortness of breath at rest and chest tightness She states her abdominal pain is much better compared to previous days. Physical Examination - Vital Signs Temperature: 98.4 F Blood Pressure: 115/86 Pulse: 99 Respirations: 22 Pulse Ox (%): 98 - Studies Laboratory Data (last 24 hrs) 11/16/22 06:28: Triglycerides 385 H 11/16/22 06:28: Sodium 137, Potassium 3.5, BUN 4 L, Creatinine 0.56, Glucose 163 H, Phosphorus 1.2 L, Magnesium 2.0, Total Bilirubin 1.0, AST 31, ALT 50, Alkaline Phosphatase 55, Lipase 4492 H 11/16/22 06:28: WBC 9.10, Hgb 11.2 L D, Hct 33.5 L, Plt Count 126 L D 11/15/22 18:53: Potassium 3.8 11/15/22 18:53: Phosphorus 1.3 L 11/15/22 18:53: Triglycerides 854 H, LDL Cholesterol Direct 74 L 11/15/22 18:53: Magnesium 1.6 Assessment And Plan - Plan Physical exam GEN: Alert, oriented, mildly dyspneic HEENT: Oxygen by nasal cannula CV: sinus tachycardia, no edema Pulm: Tachypneic, mild respiratory distress, mild scattered rhonchi ABD: Soft, nontender ,nondistended Integumentary: No rashes Neuro: Normal speech, normal affect Problem List Acute pancreatitis secondary to hypertriglyceridemia Diabetes mellitus type [id number] Hypertension Hyperlipidemia Acute respiratory failure with hypoxia Acute pancreatitis secondary to hypertriglyceridemia Diabetes mellitus type [id number] Acute pancreatitis secondary to hypertriglyceridemia. Triglyceride level trended down to 385 Discontinue insulin drip Oz[place] may have contributed to the acute pancreatitis. CT abdomen pelvis suggesting cyst in the pancreas indicating pancreatic cysts. GI consulted to assist with management. IV Ringer's lactate per GI. Continue to trend lipase Continue to trend triglyceride levels. Keep NPO. Serial abdominal exams. We will start fenofibrate once acute pancreatitis improve. She will need prescription for fenofibrate on discharge. Hypertension She is currently normotensive Continue metoprolol. Acute respiratory failure with hypoxia Chest x-ray demonstrated findings suggestive of mild pulmonary edema. Patient given a dose of Lasix but her face became flushed and was itching. Sulfa allergy suspected. Only 1 dose of Lasix was given. Patient given Benadryl. Hydrochlorothiazide also held. Patient's symptoms improved with bronchodilators. VTE: lovenox Code: full Dispo: home upon discharge.
[2022-11-16] MEDS: ONDANSETRON 4 MG/2 ML VIAL IV PRN (18:06)
[2022-11-17] MEDS: INSULIN -REGULAR HUMAN 50 UNIT/0.5 ML ML SQ SCH ×5 (00:13→21:55)
[2022-11-17] MEDS: Ringers Lactate 1,000 ML IV SCH ×2 (02:19→13:27)
[2022-11-17] MEDS: HYDROMORPHONE HCL 1 MG/ML INJ IV PRN ×7 (02:20→21:58)
[2022-11-17 05:42] LABS: Absolute Lymphocytes (CBC) 1.9 K/uL (0.7-4.9); Hematocrit 33.2 % (36.0-45.0); Lymphocytes % 20.3 % (15.3-44.8); MCV 90.8 fL (80-100); MPV 8.6 fL (7.6-11.3); RBC Red Blood Cell Count 3.66 M/uL (3.86-4.86)
[2022-11-17 05:54] LABS: Phosphorus 2.4 mg/dL (2.5-4.9); Potassium 3.4 mmol/L (3.5-5.1)
[2022-11-17 05:58] VITALS: BMI 31.9
[2022-11-17] MEDS ORDERED: POTASSIUM PHOS IN 0.9 % NACL 15 MMOL/250 ML BAG IV ONE (06:08)
[2022-11-17] MEDS ORDERED: POTASSIUM 25 MEQ EFFERV TAB PO ONE ×2 (06:08→11:00)
[2022-11-17] MEDS: ENOXAPARIN 40 MG/0.4 ML SQ SCH (08:17)
[2022-11-17] MEDS: METOPROLOL TAR 50 MG TAB PO SCH (08:17)
[2022-11-17] MEDS: lisinopriL 20 MG TAB PO SCH (08:17)
[2022-11-17 10:06] LABS: Urine Bacteria <20 /HPF (<20); Urine Bilirubin NEGATIVE (Negative); Urine Blood Negative (Negative); Urine Clarity Clear (Clear); Urine Color Light-Yellow (Yellow); Urine Glucose 4+ (Over) (Negative); Urine Protein NEGATIVE (Negative); Urine RBC None Seen /HPF (None Seen); Urine Urobilinogen 1+ (Normal)
[2022-11-17] MEDS: POTASS/SODIUM PHOSPHATE 1 PKT POWD.PACK PO SCH ×3 (11:08→13:21)
[2022-11-17] MEDS: ALBUTEROL 2.5 MG/3 ML NEB SOL NEB SCH ×3 (11:24→19:50)
--- NOTE | 2022-11-17 11:58 | P.PN ---
Subjective Date of Service: 11/17/22 Chief Complaint: Acute pancreatitis Patient is complaining of chest tightness that woke her up from sleep. She stated her chest tightness improved remarkably with bronchodilators yesterday. She reports improvement in shortness of breath, now able to transfer to bedside commode without shortness of breath. No recorded fever. States her abdominal pain has significantly improved. Physical Examination - Vital Signs Temperature: 98.5 F Blood Pressure: 134/94 Pulse: 122 Respirations: 28 Pulse Ox (%): 94 - Studies Laboratory Data (last 24 hrs) 11/17/22 05:22: Sodium 136, Potassium 3.4 L, BUN 6 L, Creatinine 0.52 L, Glucose 198 H, Phosphorus 2.4 L, Lipase 747 H 11/17/22 05:22: Triglycerides 305 H 11/17/22 05:22: WBC 9.40, Hgb 11.3 L, Hct 33.2 L, Plt Count 130 L 11/16/22 18:08: Triglycerides 293 H Assessment And Plan - Plan Physical exam GEN: Alert, oriented, mildly dyspneic HEENT: Oxygen by nasal cannula CV: sinus tachycardia, no edema Pulm: Tachypneic, mild respiratory distress, mild scattered rhonchi ABD: Soft, nontender ,nondistended Integumentary: No rashes Neuro: Normal speech, normal affect Problem List Acute pancreatitis secondary to hypertriglyceridemia Diabetes mellitus type [id number]-errjevkoa Hypertension Hyperlipidemia Acute respiratory failure with hypoxia Acute pancreatitis secondary to hypertriglyceridemia Diabetes mellitus type [id number] Acute pancreatitis secondary to hypertriglyceridemia. Triglyceride level trended down to [address] abdomen pelvis suggesting cyst in the pancreas indicating pancreatic cysts. Seen by GI who recommended supportive measures with IV Ringer's lactate. Lipase level significantly improved from yesterday. Continue to trend triglyceride levels. Clear liquid diet. Start fenofibrate Transferred to the medical floor Hypertension She is currently normotensive Continue metoprolol. Acute respiratory failure with hypoxia/acute bronchitis Chest x-ray demonstrated findings suggestive of mild pulmonary edema. Patient given a dose of Lasix but her face became flushed and was itching. Sulfa allergy suspected. Only 1 dose of Lasix was given. Patient given Benadryl. Hydrochlorothiazide also held. Patient's symptoms improved with bronchodilators. Scheduled albuterol nebs. Chest pain: Patient is complaining of chest tightness. I suspect this is related to acute bronchitis. Check troponin. Echocardiogram reviewed and unremarkable. VTE: lovenox Code: full Dispo: home upon discharge.
[2022-11-17] MEDS: FENOFIBRATE 160 MG TAB PO SCH (16:50)
[2022-11-18] MEDS: HYDROMORPHONE HCL 1 MG/ML INJ IV PRN ×4 (01:13→11:09)
[2022-11-18] MEDS: ALBUTEROL 2.5 MG/3 ML NEB SOL NEB SCH ×4 (02:00→20:30)
[2022-11-18] MEDS: Ringers Lactate 1,000 ML IV SCH ×2 (02:00→18:20)
[2022-11-18 04:10] LABS: Absolute Lymphocytes (CBC) 1.8 K/uL (0.7-4.9); Hematocrit 30.3 % (36.0-45.0); Lymphocytes % 20.6 % (15.3-44.8); MCV 90.5 fL (80-100); MPV 8.2 fL (7.6-11.3); RBC Red Blood Cell Count 3.35 M/uL (3.86-4.86)
[2022-11-18] MEDS: ONDANSETRON 4 MG/2 ML VIAL IV PRN (04:11)
[2022-11-18 04:25] LABS: Albumin 2.1 g/dL (3.4-5.0); Bilirubin Total 0.8 mg/dL (0.2-1.0); Potassium 3.3 mmol/L (3.5-5.1); Protein, Total 5.9 g/dL (6.4-8.2)
[2022-11-18] MEDS: INSULIN -REGULAR HUMAN 50 UNIT/0.5 ML ML SQ SCH ×4 (07:30→20:30)
[2022-11-18 09:16] LABS: Phosphorus 3.5 mg/dL (2.5-4.9)
[2022-11-18] MEDS: lisinopriL 20 MG TAB PO SCH (09:39)
[2022-11-18] MEDS: ENOXAPARIN 40 MG/0.4 ML SQ SCH (09:39)
[2022-11-18] MEDS: METOPROLOL TAR 50 MG TAB PO SCH (09:39)
[2022-11-18] MEDS: HYDROCODONE/APAP 5/325 MG TAB PO PRN ×2 (15:23→22:11)
--- NOTE | 2022-11-18 15:54 | P.PN ---
Subjective Date of Service: 11/18/22 Chief Complaint: Acute pancreatitis Subjective: Improving Patient states she feels much better today She states her pain is much better. She is tolerating diet. She is also ambulatory without shortness of breath. Physical Examination - Vital Signs Temperature: 97.6 F Blood Pressure: 114/77 Pulse: 94 Respirations: 14 Pulse Ox (%): 92 - Studies Laboratory Data (last 24 hrs) 11/18/22 03:52: WBC 8.60, Hgb 10.2 L D, Hct 30.3 L, Plt Count 131 L 11/18/22 03:52: Sodium 136, Potassium 3.3 L, BUN 6 L, Creatinine 0.44 L, Glucose 217 H, Phosphorus 3.5, Total Bilirubin 0.8, AST 18, ALT 34, Alkaline Phosphatase 63, Lipase 651 H Assessment And Plan - Plan Physical exam GEN: Alert, oriented, mildly dyspneic HEENT: Oxygen by nasal cannula CV: sinus tachycardia, no edema Pulm: Clear to auscultation bilaterally. Adequate breath sounds bilaterally. ABD: Soft, nontender ,nondistended Integumentary: No rashes Neuro: Normal speech, normal affect Problem List Acute pancreatitis secondary to hypertriglyceridemia Diabetes mellitus type [id number]-[id number] Hypertension Hyperlipidemia Acute respiratory failure with hypoxia Acute pancreatitis secondary to hypertriglyceridemia Diabetes mellitus type [id number]-[id number] Acute pancreatitis secondary to hypertriglyceridemia. Triglyceride level trended down to [address] abdomen pelvis suggesting cyst in the pancreas indicating pancreatic cysts. Seen by GI who recommended supportive measures with IV Ringer's lactate. Lipase level significantly improved from yesterday. Clinically improved Clear liquid diet for 1 more day and advance as tolerated Continue fenofibrate Discontinue IV Dilaudid. Pain management with oral [place]. Hypertension Stable Continue metoprolol. Acute respiratory failure with hypoxia/acute bronchitis Chest x-ray demonstrated findings suggestive of mild pulmonary edema. Patient given a dose of Lasix but her face became flushed and was itching. Sulfa allergy suspected. Only 1 dose of Lasix was given. Patient given Benadryl. Hydrochlorothiazide also held. Patient's symptoms improved with bronchodilators. She is currently tolerating room air. Acute respiratory failure resolved. Continue albuterol nebs. Chest pain: Patient is complaining of chest tightness. I suspect this is related to acute bronchitis. Troponin negative. Echocardiogram reviewed and unremarkable. VTE: lovenox Code: full Dispo: home upon discharge.
[2022-11-18] MEDS: FENOFIBRATE 160 MG TAB PO SCH (16:26)
[2022-11-18] MEDS ORDERED: LOPERAMIDE HCL 2 MG CAPSULE PO STA (22:44)
[2022-11-19] MEDS: ALBUTEROL 2.5 MG/3 ML NEB SOL NEB SCH ×2 (02:00→08:00)
[2022-11-19 03:00] LABS: Absolute Lymphocytes (CBC) 2.6 K/uL (0.7-4.9); Hematocrit 30.6 % (36.0-45.0); Lymphocytes % 29.8 % (15.3-44.8); MCV 90.2 fL (80-100); MPV 8.2 fL (7.6-11.3); RBC Red Blood Cell Count 3.39 M/uL (3.86-4.86)
[2022-11-19 03:14] LABS: Potassium 3.3 mmol/L (3.5-5.1)
[2022-11-19] MEDS: Ringers Lactate 1,000 ML IV SCH ×2 (04:32→07:40)
[2022-11-19] MEDS: ENOXAPARIN 40 MG/0.4 ML SQ SCH (08:28)
[2022-11-19] MEDS: ONDANSETRON 4 MG/2 ML VIAL IV PRN (08:28)
[2022-11-19] MEDS: METOPROLOL TAR 50 MG TAB PO SCH (08:30)
[2022-11-19] MEDS: lisinopriL 20 MG TAB PO SCH (08:31)
[2022-11-19 08:34] VITALS: BP 141/79
[2022-11-19 08:36] VITALS: O2SAT 96
[2022-11-19 08:56] VITALS: TEMP 98.6
[2022-11-19] MEDS ORDERED: POTASSIUM 25 MEQ EFFERV TAB PO ONE (09:00)
--- NOTE | 2022-11-19 09:05 | P.DS ---
Admission Date: 11/13/22 Discharge Date: 11/19/22 Disposition: ROUTINE DISCHARGE Discharge Condition: FAIR Reason for Admission: Acute pancreatitis Brief History of Present Illness: 46-year-old woman with history of hdr-zxfaidk-hldpsbaca diabetes, hypertension, hyperlipidemia presented to outside hospital with complaints of abdominal pain. Her blood was significantly lipemic limiting the ability to fully evaluate blood chemistries, her CBC was unremarkable. CT abdomen pelvis without IV contrast was performed which revealed mild pancreatitis. Patient with history of cholecystectomy, she denied alcohol use, she reported very high triglycerides in the past. Hypertriglyceridemia induced pancreatitis suspected. Patient reports that she was taken off of her antidiabetic agents aside from Ozempic in the last couple of months. Last A1c she reports 6.7 in July 2022. She was admitted to ICU for insulin drip for hypertriglyceridemia induced pancreatitis. Hospital Course: Diagnosis Acute pancreatitis secondary to hypertriglyceridemia Diabetes mellitus type 5rjp-ublnysp-kwthssnfe Hypertension Hyperlipidemia Acute respiratory failure with hypoxia. Acute bronchitis Acute pancreatitis secondary to hypertriglyceridemia Diabetes mellitus type [id number] Acute pancreatitis secondary to hypertriglyceridemia. CT abdomen pelvis suggesting cyst in the pancreas indicating pancreatic cysts. Seen by GI who recommended supportive measures with IV Ringer's lactate. Patient treated with insulin drip. Triglyceride level trended down from 3900 to 305 She was subsequently transitioned from insulin drip to subcutaneous insulin. Lipase level also improved significantly. Lipase level elevated on presentation to 3900, peaked at 8000 and then trended down to 315. Patient has overall clinically improved. He has tolerated diet advancement to his full liquid/soft consistency She was started on fenofibrate for hyperlipidemia. Ozempic for blood glucose control resumed on discharge. Patient advised to follow-up with his PCP as soon as possible for further options regarding hypertriglyceridemia treatment and blood glucose management. Her hemoglobin A1c is 8.0 and she may be a candidate for oral antidiabetics. Hypertension Stable Continue metoprolol. Acute respiratory failure with hypoxia/acute bronchitis Chest x-ray demonstrated findings suggestive of mild pulmonary edema. Patient given a dose of Lasix but her face became flushed and was itching. Sulfa allergy suspected. Only 1 dose of Lasix was given. Allergic reaction resolved after a dose of Benadryl. Hydrochlorothiazide also held. Patient's symptoms improved with bronchodilators. She was initially requiring oxygen which was weaned down with a bronchodilator treatment. Acute respiratory failure resolved. Chest pain: Patient is complaining of chest tightness. I suspect this is related to acute bronchitis. Troponin negative. Echocardiogram done was unremarkable. Overall patient is clinically improved and deemed stable for discharge. Vital Signs/Physical Exam: Temp Pulse Resp BP Pulse Ox 98.6 F 90 18 141/79 H 96 11/19/22 08:00 11/19/22 08:31 11/19/22 08:00 11/19/22 08:31 11/19/22 08:00 General: Alert, In no apparent distress, Oriented x3 HEENT: Mucous membr. moist/pink Neck: Supple, JVD not distended Respiratory: Clear to auscultation bilaterally, Normal air movement Cardiovascular: No edema, Regular rate/rhythm, Normal S1 S2 Gastrointestinal: Soft and benign, Non-distended, No tenderness Musculoskeletal: No swelling, No tenderness Integumentary: No rashes, No cyanosis Neurological: Normal strength at 5/5 x4 extr Lymphatics: No axilla or inguinal lymphadenopathy Laboratory Data at Discharge: WBC 8.60 K/uL (4.3-10.9) 11/19/22 02:46 Hgb 10.3 g/dL (12.0-15.0) L 11/19/22 02:46 Hct 30.6 % (36.0-45.0) L 11/19/22 02:46 Plt Count 155 K/uL (152-406) 11/19/22 02:46 Sodium 138 mmol/L (136-145) 11/19/22 02:46 Potassium 3.3 mmol/L (3.5-5.1) L 11/19/22 02:46 BUN 6 mg/dL (7-18) L 11/19/22 02:46 Creatinine 0.45 mg/dL (0.55-1.02) L 11/19/22 02:46 Glucose 239 mg/dL (74-106) H 11/19/22 02:46 Phosphorus 3.5 mg/dL (2.5-4.9) 11/18/22 03:52 Magnesium 2.0 mg/dL (1.6-2.4) 11/16/22 06:28 Total Bilirubin 0.8 mg/dL (0.2-1.0) 11/18/22 03:52 AST 18 U/L (15-37) 11/18/22 03:52 ALT 34 U/L (13-56) 11/18/22 03:52 Alkaline Phosphatase 63 U/L (45-117) 11/18/22 03:52 Triglycerides 305 mg/dL (<150) H 11/17/22 05:22 Cholesterol 88 mg/dL (<200) 11/13/22 20:25 LDL Cholesterol Direct 74 mg/dL (100-129) L 11/15/22 18:53 HDL Cholesterol 15 mg/dL (40-60) L 11/13/22 20:25 Cholesterol/HDL Ratio 5.87 11/13/22 20:25 Lipase 311 U/L (13-75) H 11/19/22 02:46 Home Medications: Lisinopril/Hydrochlorothiazide [Lisinopril-Hctz 20-25 mg Tab] 1 each PO DAILY 06/08/19 Metoprolol Tartrate [Lopressor] 100 mg PO BID 06/08/19 Multivitamin [Multivitamins] 1 each PO DAILY 06/08/19 Ascorbic Acid [Vitamin C*] 1 tab PO DAILY 11/13/22 Medroxyprogesterone Acetate 1 tab PO DAILY 11/13/22 Proctor-3/Dha/Epa/Fish Oil [Fish Oil 1,000 mg Softgel] 2 each PO DAILY 11/13/22 Semaglutide [Ozempic] 1 mg SQ UD 11/13/22 estradioL [Estradiol] 1 tab PO DAILY 11/13/22 Amox/Clavulanate [Augmentin 875-125 Tab] 1 each PO BID #10 tab 11/19/22 Fenofibrate 160 mg PO DAILY #30 tab 11/19/22 Hydrocodone 5/APAP 325 [[place] 5/325] 1 tab PO Q6H PRN #12 tab 11/19/22 New Medications: Amox/Clavulanate [Augmentin 875-125 Tab] 1 each PO BID #10 tab Fenofibrate 160 mg PO DAILY #30 tab Hydrocodone 5/APAP 325 [[place] 5/325] 1 tab PO Q6H PRN #12 tab PRN Reason: Pain Physician Discharge Instructions: Soft diet for next 2 days and then advance as tolerated. Diet: ADA Activity: Ad asya Followup: Jones Matthew MD [ACTIVE - CAN ADMIT] - (within 2 weeks) Time spent managing pt's care (in minutes): 38
[2022-11-19] MEDS: INSULIN -REGULAR HUMAN 50 UNIT/0.5 ML ML SQ SCH (09:25)
== END 2022-11-19 10:16 | disposition home or self-care (01) | DRG 438 ==
LOC: 3RD-ICU 20:02 → 2ND 11-17 13:58
PROVIDERS: ADMIT Hospitalist; ATTEND Internal Medicine
DX: K85.90 Acute pancreatitis without necrosis or infection, unspecified (principal); J96.01 Acute respiratory failure with hypoxia; K86.2 Cyst of pancreas; J81.1 Chronic pulmonary edema; I10 Essential (primary) hypertension; E11.9 Type 2 diabetes mellitus without complications; J20.9 Acute bronchitis, unspecified; E78.1 Pure hyperglyceridemia; Z88.8 Allergy status to other drugs, medicaments and biological substances; Z63.5 Disruption of family by separation and divorce; Z79.4 Long term (current) use of insulin; Z79.82 Long term (current) use of aspirin; Z98.51 Tubal ligation status; Z90.49 Acquired absence of other specified parts of digestive tract; Z79.899 Other long term (current) drug therapy; Z20.822 Contact with and (suspected) exposure to COVID-19
CPT/HCPCS: 36415; 71045; 74176; 80048; 80053; 80061; 81001; 82947; 83036; 83690; 83735; 84100; 84132; 84439; 84443; 84478; 84484; 85025; 93306; J1170; J1200; J1650; J1815; J1940; J2405; J3475; J3480; J7040; J7120; J7613; U0003

== ENCOUNTER 2024-06-01 04:07 | Emergency (ER) | payer BC ==
--- OUTSIDE RECORDS SUMMARY | 2024-06-01 04:27 | XMS REPORT | Continuity of Care Document ---
Author Name Unknown Address [address] [facility] [address] [place] [address] [facility] Address [address] [facility] [address] [place] [address] Care Team Providers Care Circus Train Supervisor Name Role Phone Gokul Persaud MD Primary Care Physician + [phone] KEAGAN VARGAS Attending Clinician Unavailable СЕРГЕЙ MORRISON Attending Clinician Unavailab СЕРГЕЙ Joyner Attending Clinician Unavailab stacey Nurse, [facility] Attending Clinician Unavailable Сергей Morrison NP Attending Clinician [phone] KEVIN PULIDO Attending Clinician Unavailable KEVIN PULIDO Attending Clinician Unavailable Vitaliy Jewell MD Attending Clinician [phone] Doctor Unassigned, [place] Attending Clinician U rebeccaailVITALIY Baumann Attending Clinician Unavailabl ALONSO Martinez Attending Clinician Unavailable Alonso Diaz Attending Clinician [phone] Flory Nagy PA-C Attending Clinician [phone] Helen Ugalde MD Attending Clinician [phone] IKER BAEZA Attending Clinician Unavailab IKER Beck Attending Clinician Unavailab stacey Nurse, [facility] Fam Attending Clinician Unavailable 2, [facility] Attending Clinician Unavailable Gokul Persaud MD Attending Clinician + MIMA CHAUHAN Attending Clinician Unavailable Dusty MARK, Giuseppe BartonHShawna Attending Clinician + [phone] Best MARK, Vitaliy Calderon Attending Clinician [phone] Tony RADIOLOGY THERAPISTMima Whitaker Attending Clinician + Lab, Ang - Db Attending Clinician Unavailable GOKUL PERSAUD Attending Clinician Unavailable GC_GCBZW_Kadiyala_S Attending Clinician Unavaila David Lyle MD Attending Clinician [phone] DAVID VALDEZ Attending Clinician UnavailSHANNA Gonzalez Attending Clinician Unavaila HARMONY Montalvo Attending Clinician Unavailable Harmony Araya PA-C Attending Clinician [phone] Unknown, Attending Attending Clinician Unavailab le RADIOLOGY Attending Clinician Unavailable Debby Mata RN Attending Clinician Unavailable Provider, [facility] Attending Clinician Unavailable GIUSEPPE MONTANO [facility] Attending Clinician Unavaila liya White, Josh M Attending Clinician [phone] ANDRES GARZON Attending Clinician Unavailable RYANNANDRES Ha Attending Clinician Unavailable Only, [facility] Pob2 Test Attending Clinician Unavaila Merritt Ceballos DO Attending Clinician [phone] MERRITT PETTIT Attending Clinician Unavail able ELANA AGUIRRE Attending Clinician Unavailable ROSS HANSEN Attending Clinician UnavailErick Yoder Attending Clinician [phone] ERICK ANN Attending Clinician Unavailable Houston Degroot MD Attending Clinician [phone] JOSE VELIZ Attending Clinician UnavailLEATHA Becerra Attending Clinician Unavailable Nurse, Lorena Meadows Attending Clinician Unavailable Tracee MARK, Kal Attending Clinician [phone] KAL MAURICIO Attending Clinician Unavailable Hortensia Balderas MD Attending Clinician + [phone] Cruz RADIOLOGY THERAPIST, Jory Attending Clinician + [phone] Giancarlo ROSARIO, Luma Attending Clinician Unavailable Nuha Ayon RN Attending Clinician Unavailab Citlalli Barahona MD Attending Clinician [phone] CITLALLI SHEIKH Attending Clinician Unavailable Team, [facility] Attending Clinicia n Unavailable CLIFF ANDRES Attending Clinician Unavailable Sawyer ROSARIO, Erin Attending Clinician UnavailLorena Cali Attending Clinician Unavailable HOUSTON DEGROOT Attending Clinician Unavailable Jeanette ROSARIO, Ami Ortega Attending Clinician UnavailFLORY Vick Attending Clinician Unavailab stacey Murphy RN, Vesta Haq Attending Clinician Un available Shen PAC, Alva S Attending Clinician [phone] Provider, [facility] Attending Clinician Un available Gi Qiu Attending Clinician [phone] HORTENSIA BALDERAS Attending Clinician Mariya Vargas MD, Keagan Attending Clinician [phone] Lorenza Yañez Attending Clinician [phone] Lab, [facility] Pob I Attending Clinician Unavailab LORENZA Butcher Attending Clinician Unavailable Pob1, [facility] Attending Clinician Unav ailable GI JANSEN Attending Clinician Unavailable Sarah Mahmood PA-C Attending Clinician [phone] SARAH MAHMOOD Attending Clinician Unavailable HELEN UGALDE Attending Clinician Unava ilable UNKNOWN, ATTENDING Attending Clinician Unavailab Gi Shah Attending Clinician KEAGAN VARGAS Admitting Clinician Unavailable GC_GCBZW_Isaac_José Luis Admitting Clinician UnavailDAVID Kapoor Admitting Clinician UnavailKEVIN Casper Admitting Clinician Unavailable Keagan Vargas MD Admitting Clinician [phone] Payers Payer Name Policy Type Policy Number Effective Date Expirati on Date Source [facility] [employer] [id number] 2014 00:00:00 Problems Condition Name Condition Details Condition Category Status Onset Date Resolution Date Last Treatment Date Treating Clinician Comments Source Dysuria Dysuria Disease Active 05-13 00:00: 00 [facility] Change in nail appearance Change in nail appearance Disease Active 05-13 00:00: 00 [facility] Suicide attempt by beta primo overdose Suicide attempt by beta primo overdose Disease Active 2019-09 00:00: 00 [facility] Need for influenza vaccinatio n Need for influenza vaccinatio n Disease Active 06-17 00:00: 00 [facility] Acute URI Acute URI Disease Active 06-12 00:00: 00 [facility] COVID-19 virus infection COVID-19 virus infection Disease Active 06-05 00:00: 00 [facility] Dyslipidem ia Dyslipidem ia Disease Active 02-16 00:00: 00 [facility] Palpitatio ns Palpitatio ns Disease Active 02-16 00:00: 00 [facility] Sleep-diso rdered breathing Sleep-diso rdered breathing Disease Active 02-16 00:00: 00 [facility] Overweight (BMI 25.0-29.9) Overweight (BMI 25.0-29.9) Disease Active 02-16 00:00: 00 [facility] Type 2 diabetes mellitus without complicati on Type 2 diabetes mellitus without complicati on Disease Active 2014-09 00:00: 00 [facility] Uncontroll ed diabetes mellitus, without long-term current use of insulin Uncontroll ed diabetes mellitus, without long-term current use of insulin Disease Active 11-04 00:00: 00 Overview: Formattin g of this note might be different from the original. 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 [facility] Group B streptococ dev UTI Group B streptococ dev UTI Disease Active 11-04 00:00: 00 [facility] HLD (hyperlipi demia) HLD (hyperlipi demia) Disease Active 11-04 00:00: 00 [facility] Hypertrigl yceridemia Hypertrigl yceridemia Disease Active 11-04 00:00: 00 [facility] H/O acute pancreatit is H/O acute pancreatit is Disease Active 11-04 00:00: 00 [facility] Fatigue Fatigue Disease Active 11-04 00:00: 00 [facility] Muscle cramp Muscle cramp Disease Active 11-04 00:00: 00 [facility] Falling hair Falling hair Disease Active 11-04 00:00: 00 [facility] Anovulator y amenorrhea Anovulator y amenorrhea Disease Active 11-04 00:00: 00 [facility] Vitamin D deficiency Vitamin D deficiency Disease Active 11-04 00:00: 00 [facility] Myalgia Myalgia Disease Active 11-04 00:00: 00 [facility] Weight gain Weight gain Disease Active 11-04 00:00: 00 [facility] Edema Edema Disease Active 10-15 00:00: 00 [facility] Wilder's palsy Wilder's palsy Disease Active 10-15 00:00: 00 [facility] Diabetes Diabetes Disease Active 10-15 00:00: 00 [facility] GERD (gastroeso phageal reflux disease) GERD (gastroeso phageal reflux disease) Disease Active 10-15 00:00: 00 [facility] Essential hypertensi on Essential hypertensi on Disease Active 10-15 00:00: 00 [facility] Edema Edema Disease Active 10-15 00:00: 00 [facility] Obesity Obesity Disease Resolve d 11-04 00:00: 00 2014-11-04 00:00:00 2014-11-04 13:19:45 [facility] Allergies, Adverse Reactions, Alerts Allergy Name Allergy Type Status Severity Reaction(s) Onset Date Inactive Date Treating Clinician Comments Source FLUCONAZ OLE DRUG INGREDI Active Swelling 10-01 00:00: 00 [facility] Fluconaz ole Propensi ty to adverse reaction s Active Swelling 10-01 00:00: 00 [facility] MEPERIDI NE HCL DRUG INGREDI Active Rash 10-07 00:00: 00 [facility] Meperidi ne Hcl Propensi ty to adverse reaction s Active Shortness of Breath 10-07 00:00: 00 [facility] Social History Social Habit Start Date Stop Date Quantity Comments Source Gender identity [facility] intake 2024-05-31 00:00:00 2024-05-31 00:00:00 .24 /d [facility] Alcohol intake 2024-01-15 00:00:00 2024-01-15 00:00:00 .24 /d [facility] History of Social function 2023-03-24 00:00:00 2023-03-24 00:00:00 [facility] Exposure to SARS-CoV-2 (event) 2023-01-28 00:00:00 2023-02-07 09:56:00 Not sure [facility] History SDOH Alcohol Frequency 2022-12-19 00:00:00 2022-12-19 00:00:00 1 [facility] History SDOH Alcohol Std Drinks 2022-12-19 00:00:00 2022-12-19 00:00:00 0 [facility] History SDOH Alcohol Binge 2022-12-19 00:00:00 2022-12-19 00:00:00 1 [facility] History SDOH Social Connections Phone 2022-12-19 00:00:00 2022-12-19 00:00:00 5 [facility] History SDOH Social Connections Get Together 2022-12-19 00:00:00 2022-12-19 00:00:00 3 [facility] History SDOH Social Connections Restorationist 2022-12-19 00:00:00 2022-12-19 00:00:00 3 [facility] History SDOH Social Connections Membership 2022-12-19 00:00:00 2022-12-19 00:00:00 1 [facility] History SDOH Social Connections Meetings 2022-12-19 00:00:00 2022-12-19 00:00:00 2 [facility] History SDOH Social Connections Living 2022-12-19 00:00:00 2022-12-19 00:00:00 8 [facility] History SDOH Physical Activity DPW 2022-12-19 00:00:00 2022-12-19 00:00:00 0 [facility] History SDOH Physical Activity MPS 2022-12-19 00:00:00 2022-12-19 00:00:00 0 [facility] History SDOH Stress 2022-12-19 00:00:00 2022-12-19 00:00:00 5 [facility] History SDOH Financial 2022-12-19 00:00:00 2022-12-19 00:00:00 4 [facility] History SDOH Food Worry 2022-12-19 00:00:00 2022-12-19 00:00:00 2 [facility] History SDOH Food Scarcity 2022-12-19 00:00:00 2022-12-19 00:00:00 1 [facility] History SDOH Transport Med 2022-12-19 00:00:00 2022-12-19 00:00:00 2 [facility] History SDOH Transport Non-Med 2022-12-19 00:00:00 2022-12-19 00:00:00 2 [facility] History SDOH Housing Unable to Pay 2022-12-19 00:00:00 2022-12-19 00:00:00 2 [facility] History SDOH Housing Places Lived 2022-12-19 00:00:00 2022-12-19 00:00:00 1 [facility] History SDOH Housing Homeless Last Year 2022-12-19 00:00:00 2022-12-19 00:00:00 2 [facility] Tobacco use and exposure 2022-08-11 00:00:00 2022-08-11 00:00:00 Smokeless tobacco non-user [facility] Alcohol Comment 2015-12-21 00:00:00 2015-12-21 00:00:00 Occasional [facility] Sex assigned at 1975 00:00:00 1975 00:00:00 [facility] Smoking Status Start Date Stop Date Source Never smoked tobacco [facility] Medications Ordered Medication Name Filled Medication Name Start Date Stop Date Current Medication? Ordering Clinician Indication Dosage Frequency Signature (SIG) Comments Components Source cefTRIAXone (ROCEPHIN) injection 1,000 mg 06-01 14:00: 00 06-10 13:59 :00 Yes [id number] 1000mg [facility] semaglutide (OZEMPIC) 1 mg/dose (4 mg/3 mL) PnIj 05-28 00:00: 00 Yes [id number] 1mg inject 1 mg under the skin weekly. [facility] ondansetron 4 mg disintegrat ing tablet 05-28 00:00: 00 Yes [id number] 4mg Take 1 tablet by mouth every 8 (eight) hours as needed for Nausea and Vomiting (N/V). [facility] cyanocobala min 1,000 mcg/mL injection 05-28 00:00: 00 Yes [id number] 1000ug inject 1 mL under the skin weekly. [facility] lidocaine 5 % (700 mg/patch) patch 05-28 00:00: 00 05-29 04:59 :00 Yes [id number] 1{patch } Apply 1 Patch to area(s) once now for 1 dose. [facility] ketorolac (TORADOL) injection 30 mg 03-22 00:45: 00 03-22 00:07 :00 No [id number] 30mg 30 mg, Intramuscu lar, ONCE, 1 dose, On Princess 03/21/24 at 1945, Routine [facility] methocarbam oL 750 mg tablet 03-21 00:00: 00 03-29 04:59 :00 Yes [id number] 750mg Take 1 tablet by mouth 4 (four) times daily for 7 days. [facility] ibuprofen 800 mg tablet 03-21 00:00: 00 03-29 04:59 :00 Yes [id number] 800mg Take 1 tablet by mouth every 6 (six) hours as needed (pain) for up to 7 days. [facility] cefTRIAXone (ROCEPHIN) injection 1,000 mg 01-16 05:00: 00 01-16 16:59 :00 No [id number] 1000mg [facility] cefTRIAXone (ROCEPHIN) injection 1,000 mg 01-14 18:30: 00 01-16 20:35 :00 No [id number] 1000mg 1,000 mg, Intramuscu lar, ONCE, 1 dose, On Mon01/15/24 at 1330, LUIS
Re ason for Anti-Infec tive: Documented Infection< br>Documen derek Infection Site: Urine
D uration of Therapy: Other (see Comments) [facility] hydrOXYzine 25 mg tablet 01-14 00:00: 00 Yes [id number] 50mg Take 2 tablets by mouth every 8 (eight) hours as needed for Anxiety. Take 2 tablets nightly as needed for Insomnia [facility] LOVAZA, omega-3-aci d ethyl esters, 1 gram capsule 01-14 00:00: 00 Yes [id number] 2g Take 2 capsules by mouth in the morning and 2 capsules in the evening. Take with meals. [facility] cyanocobala min 1,000 mcg/mL injection 01-14 00:00: 00 Yes [id number] 1000ug inject 1 mL under the skin weekly. [facility] Syringe with Needle, Safety (3CC SAFETY SYRINGE 25GX5/8") 3 mL 25 gauge x 5/8" Syrg 01-14 00:00: 00 Yes [id number] Use as directed [facility] terconazole 0.8 % vaginal cream 01-14 00:00: 00 Yes [id number] 1{appli cator} Insert 1 Applicator into vagina at bedtime. [facility] glyBURIDE 2.5 mg tablet 01-11 00:00: 00 Yes [id number] 2.5mg Take 1 tablet by mouth every morning. [facility] lisinopriL- hydrochloro thiazide 10-12.5 mg per tablet 01-11 00:00: 00 Yes [id number] 1{tbl} Take 1 tablet by mouth in the morning. [facility] metoprolol succinate XL 100 mg 24 hr tablet 01-11 00:00: 00 Yes [id number] 100mg Take 1 tablet by mouth in the morning. [facility] GLYBURIDE 2.5 mg tablet 01-08 00:00: 00 01-11 00:00 :00 No [id number] 2.5mg TAKE 1 TABLET BY MOUTH ONCE DAILY IN THE MORNING [facility] clotrimazol e 1 % vaginal cream 12-26 00:00: 00 Yes [id number] 1{appli cator} Insert 1 Applicator into vagina at bedtime. [facility] ondansetron 4 mg disintegrat ing tablet 12-18 00:00: 00 Yes [id number] 4mg Take 1 tablet by mouth every 8 (eight) hours as needed for Nausea and Vomiting (N/V). [facility] clindamycin 150 mg capsule 11-27 00:00: 00 12-08 04:59 :00 No [id number] 450mg Take 3 capsules by mouth in the morning and 3 capsules at noon and 3 capsules in the evening. Do all this for 10 days. [facility] clotrimazol e 1 % vaginal cream 11-27 00:00: 00 12-05 04:59 :00 No [id number] 1{appli cator} Insert 1 Applicator into vagina at bedtime for 7 days. [facility] valACYclovi r (VALTREX) 500 mg tablet 11-13 00:00: 00 Yes [id number] 500mg Take 1 tablet by mouth in the morning and 1 tablet in the evening. [facility] hydrOXYzine 25 mg tablet 11-13 00:00: 00 01-14 00:00 :00 No [id number] 25mg Take 1 tablet by mouth 3 (three) times daily as needed for Anxiety. Take 2 tablets nightly as needed for Insomnia [facility] LOVAZA, omega-3-aci d ethyl esters, 1 gram capsule 10-10 00:00: 00 01-14 00:00 :00 No [id number] 2g Take 2 capsules by mouth in the morning and 2 capsules in the evening. Take with meals. [facility] semaglutide (OZEMPIC) 0.25 mg or 0.5 mg (2 mg/3 mL) PnIj 10-06 00:00: 00 Yes [id number] .5mg inject 0.5 mg under the skin weekly. [facility] flash glucose sensor (FREESTYLE SNEHAL 2 SENSOR) Kit 10-06 00:00: 00 Yes [id number] 1{each} 1 Each every 14 (fourteen) days. [facility] flash glucose scanning reader (FREESTYLE SNEHAL 2 READER) Misc 10-06 00:00: 00 Yes [id number] 1{each} 1 Each every 6 (six) hours. [facility] Blood-Gluco se Sensor (DEXCOM G6 SENSOR) Sasha 10-06 00:00: 00 Yes Use as directed to check blood sugars E11.9 [facility] Blood-Gluco se Transmitter (DEXCOM G6 TRANSMITTER ) Sasha 10-06 00:00: 00 Yes Use as directed to check blood sugars E11.9 [facility] Fenofibrate 160 mg tablet 10-03 00:00: 00 Yes [id number] 160mg Take 1 tablet by mouth in the morning. [facility] lisinopriL- hydrochloro thiazide 10-12.5 mg per tablet 10-03 00:00: 00 01-11 00:00 :00 No [id number] 1{tbl} Take 1 tablet by mouth in the morning. [facility] metoprolol succinate XL 100 mg 24 hr tablet 10-03 00:00: 00 01-11 00:00 :00 No [id number] 100mg Take 1 tablet by mouth in the morning. [facility] LOVAZA, omega-3-aci d ethyl esters, 1 gram capsule -09 00:00: 00 10-10 00:00 :00 No [id number] 2g Take 2 capsules by mouth in the morning and 2 capsules in the evening. Take with meals. Add one capsule at lunch [facility] estradioL 0.5 mg tablet 10-02 00:00: 00 Yes [id number] .5mg Take 1 tablet by mouth in the morning. [facility] medroxyPROG ESTERone 2.5 mg tablet 10-02 00:00: 00 Yes [id number] 2.5mg Take 1 tablet by mouth in the morning. [facility] terconazole 0.8 % vaginal cream 09-29 00:00: 00 01-14 00:00 :00 No [id number] 1{appli cator} Insert 1 Applicator into vagina at bedtime. [facility] cefdinir 300 mg capsule 09-29 00:00: 00 10-10 05:59 :00 No [id number] 300mg Take 1 capsule by mouth every 12 (twelve) hours for 10 days. [facility] semaglutide (OZEMPIC) 0.25 mg or 0.5 mg (2 mg/3 mL) PnIj 2022-09 00:00: 00 10-06 00:00 :00 No [id number] Start 0.25mg SC qWeek x 4 weeks, then increase to 0.5mg SC qWeek x 4 weeks, then increase to 1mg qWeek [facility] flash glucose sensor (FREESTYLE SNEHAL 2 SENSOR) Kit 2022-09 00:00: 00 10-06 00:00 :00 No [id number] 1{each} 1 Each every 14 (fourteen) days. [facility] flash glucose scanning reader (FREESTYLE SNEHAL 14 DAY READER) Misc 2022-09 2 00:00: 00 10-06 00:00 :00 No [id number] Take 1 Box in the morning and 1 Box in the evening. E11.65: check home blood glucose BID (brand approval by insurance) [facility] terconazole 0.4 % vaginal cream 2022-09 00:00: 00 Yes [id number] 1{appli cator} Insert 1 Applicator into vagina at bedtime. [facility] molnupiravi r 200 mg capsule 2022-09 00:00: 00 01-11 00:00 :00 No [id number] 800mg Take 4 capsules by mouth every 12 (twelve) hours. [facility] promethazin e-dextromet horphan 6.25-15 mg/5 mL syrup 2022-09 00:00: 00 01-11 00:00 :00 No [id number] 5mL Take 5 mL by mouth 4 (four) times daily as needed for Cough. [facility] ondansetron 4 mg disintegrat ing tablet 2022-09 00:00: 00 12-17 00:00 :00 No [id number] 4mg Take 1 tablet by mouth every 8 (eight) hours as needed for Nausea and Vomiting (N/V). [facility] cefdinir 300 mg capsule 2022-09 00:00: 00 08-15 05:59 :00 No [id number] 300mg Take 1 capsule by mouth every 12 (twelve) hours for 10 days. [facility] terconazole 0.8 % vaginal cream 2022-09 016 00:00: 00 08-04 00:00 :00 No [id number] 1{appli cator} Insert 1 Applicator into vagina at bedtime. [facility] ondansetron 4 mg disintegrat ing tablet 06-21 00:00: 00 12-18 00:00 :00 No [id number] 4mg Take 1 tablet by mouth every 8 (eight) hours as needed for Nausea and Vomiting (N/V). [facility] semaglutide (OZEMPIC) 1 mg/dose (4 mg/3 mL) PnIj 06-21 00:00: 00 10-06 00:00 :00 No [id number] 1mg inject 1 mg under the skin weekly. [facility] flash glucose sensor (FREESTYLE SNEHAL 2 SENSOR) Kit 05-05 00:00: 00 09-01 00:00 :00 No [id number] 1{each} 1 Each every 14 (fourteen) days. [facility] cyanocobala min (DODEX) injection 2,000 mcg 04-28 21:45: 00 04-28 21:20 :00 No [id number] 2000ug 2,000 mcg, Intramuscu lar, ONCE, 1 dose, On Mon04/28/23 at 1645, Routine [facility] Diclofenac Sodium (VOLTAREN) 1 % gel 04-28 00:00: 00 Yes [id number] Take 2-4 grams three times a day as needed for pain [facility] cyanocobala min 1,000 mcg/mL injection 04-28 00:00: 00 01-14 00:00 :00 No [id number] 1000ug inject 1 mL under the skin weekly. [facility] Syringe with Needle, Safety (3CC SAFETY SYRINGE 25GX5/8") 3 mL 25 gauge x 5/8" Syrg 04-28 00:00: 00 01-14 00:00 :00 No [id number] Use as directed [facility] hydrOXYzine 25 mg tablet 04-28 00:00: 00 11-13 00:00 :00 No [id number] 25mg Take 1 tablet by mouth 3 (three) times daily as needed for Anxiety. Take 2 tablets nightly as needed for Insomnia [facility] flash glucose sensor (FREESTYLE SNEHAL 14 DAY SENSOR) Kit 04-28 00:00: 00 10-06 00:00 :00 No [id number] 1{kit} Take 1 Kit in the morning and 1 Kit at noon and 1 Kit in the evening. [facility] terconazole 0.8 % vaginal cream 04-28 00:00: 00 07-10 00:00 :00 No [id number] 1{appli cator} Insert 1 Applicator into vagina at bedtime. [facility] semaglutide (OZEMPIC) 1 mg/dose (4 mg/3 mL) PnIj 04-28 00:00: 00 06-21 00:00 :00 No [id number] 1mg inject 1 mg under the skin weekly. [facility] amoxicillin -clavulanat e (AUGMENTIN) 875-125 mg per tablet 04-28 00:00: 00 05-09 04:59 :00 No [id number] 1{tbl} Take 1 tablet by mouth in the morning and 1 tablet in the evening. Do all this for 10 days. [facility] flash glucose sensor (FREESTYLE SNEHAL 2 SENSOR) Kit 04-28 00:00: 00 05-05 00:00 :00 No [id number] 1{each} 1 Each every 14 (fourteen) days. [facility] dexamethaso ne sod phos PF injection 10 mg 03-24 23:15: 00 03-24 22:57 :00 No [id number] 10mg [facility] bromphenira mine-pseudo ephedrine-D M (BROMFED DM) 2-30-10 mg/5 mL syrup 03-24 00:00: 00 04-28 00:00 :00 No [id number] 5mL Take 5 mL by mouth 3 (three) times daily as needed for Cough or Cold symptoms. [facility] cephALEXin (KEFLEX) 500 mg capsule 03-24 00:00: 00 04-01 04:59 :00 No [id number] 500mg Take 1 capsule by mouth 4 (four) times daily for 7 days. [facility] predniSONE 20 mg tablet 03-24 00:00: 00 03-30 04:59 :00 No [id number] 20mg Take 1 tablet by mouth in the morning for 5 days. [facility] lisinopriL- hydrochloro thiazide 10-12.5 mg per tablet 2023-0 6-16 00:00: 00 10-03 00:00 :00 No [id number] 1{tbl} Take 1 tablet by mouth in the morning. [facility] lisinopriL- hydrochloro thiazide 10-12.5 mg per tablet 03-09 00:00: 00 Yes [id number] 1{tbl} Take 1 tablet by mouth in the morning. [facility] cyanocobala min (DODEX) injection 2,000 mcg 02-10 17:45: 00 02-16 17:44 :00 No [id number] 2000ug [facility] ciprofloxac in HCl (CIPRO) 500 mg tablet 02-10 00:00: 00 02-21 04:59 :00 No [id number] 500mg Take 1 tablet by mouth every 12 (twelve) hours for 10 days. [facility] lisinopriL- hydrochloro thiazide 10-12.5 mg per tablet -20 00:00: 00 03-09 00:00 :00 No [id number] 1{tbl} Take 1 tablet by mouth in the morning. [facility] cyanocobala min (DODEX) injection 2,000 mcg -29 20:30: 00 04-28 20:36 :06 No [id number] 2000ug [facility] cyanocobala min (DODEX) injection 2,000 mcg 12-19 18:30: 00 12-19 17:25 :00 No [id number] 2000ug [facility] glyBURIDE 2.5 mg tablet 12-19 00:00: 00 01-08 00:00 :00 No [id number] 2.5mg Take 1 tablet by mouth every morning. [facility] metoprolol tartrate 100 mg tablet 12-19 00:00: 00 10-03 00:00 :00 No [id number] 100mg Take 1 tablet by mouth in the morning. [facility] LOVAZA, omega-3-aci d ethyl esters, 1 gram capsule 12-19 00:00: 00 10-03 00:00 :00 No [id number] 2g Take 2 capsules by mouth in the morning and 2 capsules in the evening. Take with meals. Add one capsule at lunch [facility] Fenofibrate 160 mg tablet 12-19 00:00: 00 10-03 00:00 :00 No [id number] 160mg Take 1 tablet by mouth in the morning. [facility] semaglutide (OZEMPIC) 1 mg/dose (4 mg/3 mL) PnIj 12-19 00:00: 00 04-28 00:00 :00 No [id number] 1mg inject 1 mg under the skin weekly. [facility] lisinopriL- hydrochloro thiazide 20-25 mg per tablet 12-19 00:00: 00 01-12 00:00 :00 No [id number] 1{tbl} Take 1 tablet by mouth in the morning. [facility] Fenofibrate 160 mg tablet 12-05 00:00: 00 12-19 00:00 :00 No [id number] 160mg Take 1 tablet by mouth in the morning. [facility] glyBURIDE 2.5 mg tablet 11-28 00:00: 00 12-19 00:00 :00 No 2.5mg Take 1 tablet by mouth every morning. [facility] albuterol 90 mcg/actuati on inhaler 11-23 00:00: 00 Yes [id number] 2{puff} Inhale 2 Puffs every 6 (six) hours as needed for Wheezing, Shortness of Breath or Chest tightness. [facility] valACYclovi r (VALTREX) 500 mg tablet 10-06 00:00: 00 11-13 00:00 :00 No [id number] 500mg Take 1 tablet by mouth in the morning and 1 tablet in the evening. [facility] amoxicillin -clavulanat e (AUGMENTIN) 875-125 mg per tablet 2021-09 00:00: 00 09-28 05:59 :00 No [id number] 1{tbl} Take 1 tablet by mouth in the morning and 1 tablet in the evening. Do all this for 7 days. [facility] sulfamethox azole-trime thoprim (BACTRIM DS) 800-160 mg per tablet 2021-09 2-20 00:00: 00 12-19 00:00 :00 No [id number] 1{tbl} Take 1 tablet by mouth in the morning and 1 tablet in the evening. [facility] ibuprofen 600 mg tablet 2021-09 2-20 00:00: 00 12-19 00:00 :00 No [id number] 600mg Take 1 tablet by mouth every 6 (six) hours as needed for Pain (scale 4-6). [facility] mupirocin 2 % ointment 2021-09 2- 00:00: 00 12-19 00:00 :00 No [id number] Apply to area(s) 3 (three) times daily. [facility] lisinopriL- hydrochloro thiazide 20-25 mg per tablet 2021-09 0-20 00:00: 00 12-19 00:00 :00 No [id number] 1{tbl} Take 1 tablet by mouth in the morning. [facility] LOVAZA, omega-3-aci d ethyl esters, 1 gram capsule 2021-09 0-20 00:00: 00 12-19 00:00 :00 No [id number] 2g Take 2 capsules by mouth in the morning and 2 capsules in the evening. Take with meals. Add one capsule at lunch [facility] metoprolol tartrate 100 mg tablet 2021-09 0-20 00:00: 00 12-19 00:00 :00 No [id number] 100mg Take 1 tablet by mouth in the morning and 1 tablet in the evening. [facility] ampicillin 500 mg capsule 9- 00:00: 00 06-28 04:59 :00 No [id number] 500mg Take 1 capsule by mouth every 6 (six) hours for 7 days. [facility] phenazopyri dine (PYRIDIUM) 200 mg tablet 06-02 00:00: 00 12-19 00:00 :00 No [id number] 200mg Take 1 tablet by mouth in the morning and 1 tablet at noon and 1 tablet in the evening. Take after meals. [facility] levoFLOXaci n 750 mg tablet 05-31 00:00: 00 12-19 00:00 :00 No [id number] 750mg Take 1 tablet by mouth every 24 (twenty-fo ur) hours. [facility] amoxicillin -clavulanat e (AUGMENTIN) 875-125 mg per tablet 05-13 00:00: 00 09-20 00:00 :00 No [id number] 1{tbl} Take 1 tablet by mouth in the morning and 1 tablet in the evening. [facility] phenazopyri dine (PYRIDIUM) 200 mg tablet 05-13 00:00: 00 06-02 00:00 :00 No [id number] 200mg Take 1 tablet by mouth in the morning and 1 tablet at noon and 1 tablet in the evening. Take after meals. [facility] semaglutide (OZEMPIC SC) -13 00:00: 00 12-19 00:00 :00 No 1mg inject 1 mg under the skin weekly. [facility] estradioL 0.5 mg tablet 03-31 00:00: 00 09-29 00:00 :00 No [id number] .5mg Take 1 tablet by mouth daily. [facility] medroxyPROG ESTERone 2.5 mg tablet - 00:00: 00 09-29 00:00 :00 No [id number] 2.5mg Take 1 tablet by mouth daily. [facility] Fenofibrate 160 mg tablet 03-09 00:00: 00 12-19 00:00 :00 No [id number] 160mg Take 1 tablet by mouth daily. [facility] metoprolol tartrate 100 mg tablet 2022-0 6-15 00:00: 00 07-14 00:00 :00 No [id number] 100mg Take 1 tablet by mouth 2 (two) times daily. [facility] LOVAZA, omega-3-aci d ethyl esters, 1 gram capsule 15 00:00: 00 07-14 00:00 :00 No [id number] 2g Take 2 capsules by mouth 2 (two) times daily with meals. Add one capsule at lunch [facility] LISINOPRIL- HYDROCHLORO THIAZIDE 20-25 mg per tablet 6-14 00:00: 00 07-14 00:00 :00 No [id number] Take 1 tablet by mouth once daily [facility] ondansetron 4 mg disintegrat ing tablet 12-01 00:00: 00 02-10 00:00 :00 No [id number] 4mg Take 1 tablet by mouth every 8 (eight) hours as needed for Nausea and Vomiting (N/V). [facility] Multivitami ns with Fluoride (MULTI-MITZY MIN ORAL) 2020-09 13:33: 43 Yes Take by mouth. [facility] traZODone 100 mg tablet 2020-09 13:33: 43 07-21 00:00 :00 No 100mg Take 100 mg by mouth at bedtime. [facility] valACYclovi r (VALTREX) 500 mg tablet 2020-09 00:00: 00 10-06 00:00 :00 No [id number] 500mg Take 1 tablet by mouth 2 (two) times daily. [facility] fenofibrate 160 mg tablet 2020-09 00:00: 00 09-24 05:59 :00 No [id number] 160mg Take 1 tablet by mouth daily for 90 days. [facility] LOVAZA, omega-3-aci d ethyl esters, 1 gram capsule 2020-09 0 00:00: 00 09-24 05:59 :00 No [id number] 2g Take 2 capsules by mouth 2 (two) times daily for 90 days. [facility] VALACYCLOVI R 500 mg tablet 05-26 00:00: 00 Yes [id number] TAKE 1 TABLET BY MOUTH EVERY DAY [facility] ondansetron (ZOFRAN ODT) 8 mg disintegrat ing tablet 05-26 00:00: 00 07-21 00:00 :00 No [id number] 8mg Take 1 tablet by mouth every 8 (eight) hours as needed for Nausea and Vomiting (N/V). [facility] estradioL 0.5 mg tablet 12-17 00:00: 00 01-10 00:00 :00 No [id number] .5mg Take 1 tablet by mouth daily. [facility] medroxyPROG ESTERone 2.5 mg tablet 12-17 00:00: 00 01-10 00:00 :00 No [id number] 2.5mg Take 1 tablet by mouth daily. [facility] JARDIANCE 25 mg Tab 11-18 00:00: 00 05-13 00:00 :00 No TAKE 1 TABLET BY MOUTH ONCE DAILY FOR 30 DAYS [facility] SERTraline 100 mg tablet 11-18 00:00: 00 07-21 00:00 :00 No [facility] Fenofibrate 160 mg tablet 11-18 00:00: 00 06-25 00:00 :00 No TAKE 1 TABLET BY MOUTH ONCE DAILY WITH A MEAL FOR 30 DAYS [facility] Cholecalcif davi, Vitamin D3, 1,250 mcg (50,000 unit) capsule 11-15 00:00: 00 Yes TAKE 1 CAPSULE BY MOUTH EVERY WEEK ON MONDAY [facility] lisinopriL- hydrochloro thiazide 20-25 mg per tablet 2019-09 00:00: 00 08-31 00:00 :00 No [id number] 1{tbl} Take 1 tablet by mouth daily. [facility] metoprolol tartrate 100 mg tablet 2019-09 00:00: 00 08-31 00:00 :00 No [id number] 100mg Take 1 tablet by mouth daily. [facility] cefUROXime 250 mg tablet 2019-09 00:00: 00 07-21 00:00 :00 No [id number] 250mg Take 1 tablet by mouth 2 (two) times daily. [facility] terconazole 0.8 % vaginal cream 2019-09 00:00: 07-21 00:00 :00 No [id number] 1{appli cator} Insert 1 Applicator into vagina at bedtime. [facility] fenofibrate 145 mg tablet 06-05 00:00: 00 06-24 00:00 :00 No [id number] 145mg Take 1 tablet by mouth at bedtime. [facility] Supply Kit 05-29 00:00: 00 Yes [id number] J40: Brochitis - Dispense # 1 Alejandro Respironic s (okay for alternativ e brand) for nebulizer treatment [facility] Supply Kit 05-29 00:00: 00 Yes [id number] J40: Brochitis - Dispense # 1 Alejandro Respironic s (okay for alternativ e brand) for nebulizer treatment [facility] ONETOUCH VERIO HIGH CONTROL Soln 2018-09 00:00: 00 Yes 10mg Take 10 mg by mouth. [facility] TOUJEO MAX U-300 SOLOSTAR 300 unit/mL (3 mL) InPn 2018-09 00:00: 00 05-13 00:00 :00 No INJECT 30 UNITS SUBCUTANEO USLY TWICE DAILY FOR 30 DAYS [facility] JARDIANCE 10 mg Tab 2018-09 00:00: 00 05-13 00:00 :00 No TAKE 1 TABLET BY MOUTH ONCE DAILY FOR 30 DAYS PLEASE STOP GLYXAMBI [facility] Insulin [place], Disposable, (BD ULTRAFINE III MINI PEN) 31 gauge x 3/16" Ndle 01-16 00:00: 00 Yes [id number] BID, DX:E11.9 [facility] blood sugar diagnostic (ONETOUCH VERIO) strip 01-16 00:00: 00 Yes Use as directed, TID, DX:E11.9 [facility] lancets [facility] 30 gauge Misc 01-16 00:00: 00 Yes Use as directed, TID, DX:E11.9 [facility] Insulin [place], Disposable, (BD ULTRAFINE III MINI PEN) 31 gauge x 3/16" Ndle 01-16 00:00: 00 Yes [id number] BID, DX:E11.9 [facility] blood sugar diagnostic (ONETOUCH VERIO) strip 01-16 00:00: 00 Yes Use as directed, TID, DX:E11.9 [facility] LOVAZA, omega-3-aci d ethyl esters, 1 gram capsule 12-19 00:00: 00 06-25 00:00 :00 No [id number] 2g Take 2 capsules by mouth 2 (two) times daily. [facility] Blood-Gluco se Meter [facility] 11-30 00:00: 00 Yes Use to check blood glucose 3X daily. Dx Code E11.9 [facility]Gl[facility] se Meter [facility] 00:00: 00 Yes Use to check blood glucose 3X daily. Dx Code E11.9 [facility] Immunizations Ordered Immunization Name Filled Immunization Name Date Status Comments Source Influenza Virus Vaccine 2021-07-01 00:00:00 Completed [facility] Influenza Virus Vaccine 2021-07-01 00:00:00 Completed [facility] Influenza Virus Vaccine 2021-07-01 00:00:00 Completed [facility] Influenza Virus Vaccine 2021-07-01 00:00:00 Completed [facility] Influenza Virus Vaccine 2021-07-01 00:00:00 Completed [facility] Influenza Virus Vaccine 2021-07-01 00:00:00 Completed [facility] Influenza Virus Vaccine 2021-07-01 00:00:00 Completed [facility] Influenza Virus Vaccine 2021-07-01 00:00:00 Completed [facility] Influenza Virus Vaccine 2021-07-01 00:00:00 Completed [facility] Influenza Virus Vaccine 2021-07-01 00:00:00 Completed [facility] Influenza Virus Vaccine 2021-07-01 00:00:00 Completed [facility] Influenza Virus Vaccine 2021-07-01 00:00:00 Completed [facility] Influenza Virus Vaccine 2021-07-01 00:00:00 Completed [facility] Influenza Virus Vaccine 2021-07-01 00:00:00 Completed [facility] Influenza Virus Vaccine 2021-07-01 00:00:00 Completed [facility] Influenza Virus Vaccine 2021-07-01 00:00:00 Completed [facility] Influenza Virus Vaccine 2021-07-01 00:00:00 Completed [facility] Influenza Virus Vaccine 2021-07-01 00:00:00 Completed [facility] Influenza Virus Vaccine 2021-07-01 00:00:00 Completed [facility] Influenza Virus Vaccine 2021-07-01 00:00:00 Completed [facility] Influenza Virus Vaccine 2021-07-01 00:00:00 Completed [facility] Influenza Virus Vaccine 2021-07-01 00:00:00 Completed [facility] Influenza Virus Vaccine 2021-07-01 00:00:00 Completed [facility] Influenza Virus Vaccine 2021-07-01 00:00:00 Completed [facility] Influenza Virus Vaccine 2021-07-01 00:00:00 Completed [facility] Influenza Virus Vaccine 2021-07-01 00:00:00 Completed [facility] Influenza Virus Vaccine 2021-07-01 00:00:00 Completed [facility] Influenza Virus Vaccine 2021-07-01 00:00:00 Completed [facility] Influenza Virus Vaccine 2021-07-01 00:00:00 Completed [facility] Influenza Virus Vaccine 2021-07-01 00:00:00 Completed [facility] Influenza Virus Vaccine 2021-07-01 00:00:00 Completed [facility] Influenza Virus Vaccine 2021-07-01 00:00:00 Completed [facility] Influenza Virus Vaccine 2021-07-01 00:00:00 Completed [facility] Influenza Virus Vaccine 2021-07-01 00:00:00 Completed [facility] Influenza Virus Vaccine 2021-07-01 00:00:00 Completed [facility] Influenza Virus Vaccine 2021-07-01 00:00:00 Completed [facility] Influenza Virus Vaccine 2021-07-01 00:00:00 Completed [facility] Influenza Virus Vaccine 2021-07-01 00:00:00 Completed [facility] Influenza Virus Vaccine 2021-07-01 00:00:00 Completed [facility] Influenza Virus Vaccine 2021-07-01 00:00:00 Completed [facility] Influenza Virus Vaccine 2021-07-01 00:00:00 Completed [facility] Influenza Virus Vaccine 2021-07-01 00:00:00 Completed [facility] Influenza Virus Vaccine 2021-07-01 00:00:00 Completed [facility] Influenza Virus Vaccine 2021-07-01 00:00:00 Completed [facility] Influenza Virus Vaccine 2021-07-01 00:00:00 Completed [facility] Influenza Virus Vaccine 2021-07-01 00:00:00 Completed [facility] Influenza Virus Vaccine 2021-07-01 00:00:00 Completed [facility] Influenza Virus Vaccine 2021-07-01 00:00:00 Completed [facility] Influenza Virus Vaccine 2021-07-01 00:00:00 Completed [facility] Influenza Virus Vaccine 2021-07-01 00:00:00 Completed [facility] Influenza Virus Vaccine 2021-07-01 00:00:00 Completed [facility] Influenza Virus Vaccine 2021-07-01 00:00:00 Completed [facility] Influenza Virus Vaccine 2021-07-01 00:00:00 Completed [facility] Influenza Virus Vaccine 2021-07-01 00:00:00 Completed [facility] Influenza Virus Vaccine 2021-07-01 00:00:00 Completed [facility] Influenza Virus Vaccine 2021-07-01 00:00:00 Completed [facility] Influenza Virus Vaccine 2021-07-01 00:00:00 Completed [facility] Influenza Virus Vaccine 2021-07-01 00:00:00 Completed [facility] Influenza Virus Vaccine 2021-07-01 00:00:00 Completed [facility] Influenza Virus Vaccine 2021-07-01 00:00:00 Completed [facility] Influenza Virus Vaccine 2021-07-01 00:00:00 Completed [facility] Influenza Virus Vaccine 2021-07-01 00:00:00 Completed [facility] Influenza Virus Vaccine 2021-07-01 00:00:00 Completed [facility] Influenza Virus Vaccine 2021-07-01 00:00:00 Completed [facility] Influenza Virus Vaccine 2021-07-01 00:00:00 Completed [facility] SARS-COV-2 COVID-19 MODERNA VACCINE 2021-01-21 00:00:00 Completed [facility] SARS-COV-2 COVID-19 MODERNA VACCINE 2021-01-21 00:00:00 Completed [facility] SARS-COV-2 COVID-19 MODERNA VACCINE 2021-01-21 00:00:00 Completed [facility] SARS-COV-2 COVID-19 MODERNA 12+ YRS VACCINE 2021-01-21 00:00:00 Completed [facility] SARS-COV-2 COVID-19 MODERNA 12+ YRS VACCINE 2021-01-21 00:00:00 Completed [facility] SARS-COV-2 COVID-19 MODERNA 12+ YRS VACCINE 2021-01-21 00:00:00 Completed [facility] SARS-COV-2 COVID-19 MODERNA 12+ YRS VACCINE 2021-01-21 00:00:00 Completed [facility] SARS-COV-2 COVID-19 MODERNA 12+ YRS VACCINE 2021-01-21 00:00:00 Completed [facility] SARS-COV-2 COVID-19 MODERNA 12+ YRS VACCINE 2021-01-21 00:00:00 Completed [facility] SARS-COV-2 COVID-19 MODERNA 12+ YRS VACCINE 2021-01-21 00:00:00 Completed [facility] SARS-COV-2 COVID-19 MODERNA 12+ YRS VACCINE 2021-01-21 00:00:00 Completed [facility] SARS-COV-2 COVID-19 MODERNA 12+ YRS VACCINE 2021-01-21 00:00:00 Completed [facility] SARS-COV-2 COVID-19 MODERNA 12+ YRS VACCINE 2021-01-21 00:00:00 Completed [facility] SARS-COV-2 COVID-19 MODERNA 12+ YRS VACCINE 2021-01-21 00:00:00 Completed [facility] SARS-COV-2 COVID-19 MODERNA 12+ YRS VACCINE 2021-01-21 00:00:00 Completed [facility] SARS-COV-2 COVID-19 MODERNA 12+ YRS VACCINE 2021-01-21 00:00:00 Completed [facility] SARS-COV-2 COVID-19 MODERNA 12+ YRS VACCINE 2021-01-21 00:00:00 Completed [facility] SARS-COV-2 COVID-19 MODERNA 12+ YRS VACCINE 2021-01-21 00:00:00 Completed [facility] SARS-COV-2 COVID-19 MODERNA 12+ YRS VACCINE 2021-01-21 00:00:00 Completed [facility] SARS-COV-2 COVID-19 MODERNA 12+ YRS VACCINE 2021-01-21 00:00:00 Completed [facility] SARS-COV-2 COVID-19 MODERNA 12+ YRS VACCINE 2021-01-21 00:00:00 Completed [facility] SARS-COV-2 COVID-19 MODERNA 12+ YRS VACCINE 2021-01-21 00:00:00 Completed [facility] SARS-COV-2 COVID-19 MODERNA 12+ YRS VACCINE 2021-01-21 00:00:00 Completed [facility] SARS-COV-2 COVID-19 MODERNA 12+ YRS VACCINE 2021-01-21 00:00:00 Completed [facility] SARS-COV-2 COVID-19 MODERNA 12+ YRS VACCINE 2021-01-21 00:00:00 Completed [facility] SARS-COV-2 COVID-19 MODERNA 12+ YRS VACCINE 2021-01-21 00:00:00 Completed [facility] SARS-COV-2 COVID-19 MODERNA 12+ YRS VACCINE 2021-01-21 00:00:00 Completed [facility] SARS-COV-2 COVID-19 MODERNA 12+ YRS VACCINE 2021-01-21 00:00:00 Completed [facility] SARS-COV-2 COVID-19 MODERNA 12+ YRS VACCINE 2021-01-21 00:00:00 Completed [facility] SARS-COV-2 COVID-19 MODERNA 12+ YRS VACCINE 2021-01-21 00:00:00 Completed [facility] SARS-COV-2 COVID-19 MODERNA 12+ YRS VACCINE 2021-01-21 00:00:00 Completed [facility] SARS-COV-2 COVID-19 MODERNA 12+ YRS VACCINE 2021-01-21 00:00:00 Completed [facility] SARS-COV-2 COVID-19 MODERNA 12+ YRS VACCINE 2021-01-21 00:00:00 Completed [facility] SARS-COV-2 COVID-19 MODERNA 12+ YRS VACCINE 2021-01-21 00:00:00 Completed [facility] SARS-COV-2 COVID-19 MODERNA 12+ YRS VACCINE 2021-01-21 00:00:00 Completed [facility] SARS-COV-2 COVID-19 MODERNA 12+ YRS VACCINE 2021-01-21 00:00:00 Completed [facility] SARS-COV-2 COVID-19 MODERNA 12+ YRS VACCINE 2021-01-21 00:00:00 Completed [facility] SARS-COV-2 COVID-19 MODERNA 12+ YRS VACCINE 2021-01-21 00:00:00 Completed [facility] SARS-COV-2 COVID-19 MODERNA 12+ YRS VACCINE 2021-01-21 00:00:00 Completed [facility] SARS-COV-2 COVID-19 MODERNA 12+ YRS VACCINE 2021-01-21 00:00:00 Completed [facility] SARS-COV-2 COVID-19 MODERNA 12+ YRS VACCINE 2021-01-21 00:00:00 Completed [facility] SARS-COV-2 COVID-19 MODERNA 12+ YRS VACCINE 2021-01-21 00:00:00 Completed [facility] SARS-COV-2 COVID-19 MODERNA 12+ YRS VACCINE 2021-01-21 00:00:00 Completed [facility] SARS-COV-2 COVID-19 MODERNA 12+ YRS VACCINE 2021-01-21 00:00:00 Completed [facility] SARS-COV-2 COVID-19 MODERNA 12+ YRS VACCINE 2021-01-21 00:00:00 Completed [facility] SARS-COV-2 COVID-19 MODERNA 12+ YRS VACCINE 2021-01-21 00:00:00 Completed [facility] SARS-COV-2 COVID-19 MODERNA 12+ YRS VACCINE 2021-01-21 00:00:00 Completed [facility] SARS-COV-2 COVID-19 MODERNA 12+ YRS VACCINE 2021-01-21 00:00:00 Completed [facility] SARS-COV-2 COVID-19 MODERNA 12+ YRS VACCINE 2021-01-21 00:00:00 Completed [facility] SARS-COV-2 COVID-19 MODERNA 12+ YRS VACCINE 2021-01-21 00:00:00 Completed [facility] SARS-COV-2 COVID-19 MODERNA 12+ YRS VACCINE 2021-01-21 00:00:00 Completed [facility] SARS-COV-2 COVID-19 MODERNA 12+ YRS VACCINE 2021-01-21 00:00:00 Completed [facility] SARS-COV-2 COVID-19 MODERNA 12+ YRS VACCINE 2021-01-21 00:00:00 Completed [facility] SARS-COV-2 COVID-19 MODERNA 12+ YRS VACCINE 2021-01-21 00:00:00 Completed [facility] SARS-COV-2 COVID-19 MODERNA 12+ YRS VACCINE 2021-01-21 00:00:00 Completed [facility] SARS-COV-2 COVID-19 MODERNA 12+ YRS VACCINE 2021-01-21 00:00:00 Completed [facility] SARS-COV-2 COVID-19 MODERNA 12+ YRS VACCINE 2021-01-21 00:00:00 Completed [facility] SARS-COV-2 COVID-19 MODERNA 12+ YRS VACCINE 2021-01-21 00:00:00 Completed [facility] SARS-COV-2 COVID-19 MODERNA 12+ YRS VACCINE 2021-01-21 00:00:00 Completed [facility] SARS-COV-2 COVID-19 MODERNA 12+ YRS VACCINE 2021-01-21 00:00:00 Completed [facility] SARS-COV-2 COVID-19 MODERNA 12+ YRS VACCINE 2021-01-21 00:00:00 Completed [facility] SARS-COV-2 COVID-19 MODERNA 12+ YRS VACCINE 2021-01-21 00:00:00 Completed [facility] SARS-COV-2 COVID-19 MODERNA 12+ YRS VACCINE 2021-01-21 00:00:00 Completed [facility] SARS-COV-2 COVID-19 MODERNA 12+ YRS VACCINE 2021-01-21 00:00:00 Completed [facility] SARS-COV-2 COVID-19 MODERNA 12+ YRS VACCINE 2021-01-21 00:00:00 Completed [facility] SARS-COV-2 COVID-19 MODERNA VACCINE 2020-09-22 00:00:00 Completed [facility] SARS-COV-2 COVID-19 MODERNA VACCINE 2020-09-22 00:00:00 Completed [facility] SARS-COV-2 COVID-19 MODERNA VACCINE 2020-09-22 00:00:00 Completed [facility] SARS-COV-2 COVID-19 MODERNA 12+ YRS VACCINE 2020-09-22 00:00:00 Completed [facility] SARS-COV-2 COVID-19 MODERNA 12+ YRS VACCINE 2020-09-22 00:00:00 Completed [facility] SARS-COV-2 COVID-19 MODERNA 12+ YRS VACCINE 2020-09-22 00:00:00 Completed [facility] SARS-COV-2 COVID-19 MODERNA 12+ YRS VACCINE 2020-09-22 00:00:00 Completed [facility] SARS-COV-2 COVID-19 MODERNA 12+ YRS VACCINE 2020-09-22 00:00:00 Completed [facility] SARS-COV-2 COVID-19 MODERNA 12+ YRS VACCINE 2020-09-22 00:00:00 Completed [facility] SARS-COV-2 COVID-19 MODERNA 12+ YRS VACCINE 2020-09-22 00:00:00 Completed [facility] SARS-COV-2 COVID-19 MODERNA 12+ YRS VACCINE 2020-09-22 00:00:00 Completed [facility] SARS-COV-2 COVID-19 MODERNA 12+ YRS VACCINE 2020-09-22 00:00:00 Completed [facility] SARS-COV-2 COVID-19 MODERNA 12+ YRS VACCINE 2020-09-22 00:00:00 Completed [facility] SARS-COV-2 COVID-19 MODERNA 12+ YRS VACCINE 2020-09-22 00:00:00 Completed [facility] SARS-COV-2 COVID-19 MODERNA 12+ YRS VACCINE 2020-09-22 00:00:00 Completed [facility] SARS-COV-2 COVID-19 MODERNA 12+ YRS VACCINE 2020-09-22 00:00:00 Completed [facility] SARS-COV-2 COVID-19 MODERNA 12+ YRS VACCINE 2020-09-22 00:00:00 Completed [facility] SARS-COV-2 COVID-19 MODERNA 12+ YRS VACCINE 2020-09-22 00:00:00 Completed [facility] SARS-COV-2 COVID-19 MODERNA 12+ YRS VACCINE 2020-09-22 00:00:00 Completed [facility] SARS-COV-2 COVID-19 MODERNA 12+ YRS VACCINE 2020-09-22 00:00:00 Completed [facility] SARS-COV-2 COVID-19 MODERNA 12+ YRS VACCINE 2020-09-22 00:00:00 Completed [facility] SARS-COV-2 COVID-19 MODERNA 12+ YRS VACCINE 2020-09-22 00:00:00 Completed [facility] SARS-COV-2 COVID-19 MODERNA 12+ YRS VACCINE 2020-09-22 00:00:00 Completed [facility] SARS-COV-2 COVID-19 MODERNA 12+ YRS VACCINE 2020-09-22 00:00:00 Completed [facility] SARS-COV-2 COVID-19 MODERNA 12+ YRS VACCINE 2020-09-22 00:00:00 Completed [facility] SARS-COV-2 COVID-19 MODERNA 12+ YRS VACCINE 2020-09-22 00:00:00 Completed [facility] SARS-COV-2 COVID-19 MODERNA 12+ YRS VACCINE 2020-09-22 00:00:00 Completed [facility] SARS-COV-2 COVID-19 MODERNA 12+ YRS VACCINE 2020-09-22 00:00:00 Completed [facility] SARS-COV-2 COVID-19 MODERNA 12+ YRS VACCINE 2020-09-22 00:00:00 Completed [facility] SARS-COV-2 COVID-19 MODERNA 12+ YRS VACCINE 2020-09-22 00:00:00 Completed [facility] SARS-COV-2 COVID-19 MODERNA 12+ YRS VACCINE 2020-09-22 00:00:00 Completed [facility] SARS-COV-2 COVID-19 MODERNA 12+ YRS VACCINE 2020-09-22 00:00:00 Completed [facility] SARS-COV-2 COVID-19 MODERNA 12+ YRS VACCINE 2020-09-22 00:00:00 Completed [facility] SARS-COV-2 COVID-19 MODERNA 12+ YRS VACCINE 2020-09-22 00:00:00 Completed [facility] SARS-COV-2 COVID-19 MODERNA 12+ YRS VACCINE 2020-09-22 00:00:00 Completed [facility] SARS-COV-2 COVID-19 MODERNA 12+ YRS VACCINE 2020-09-22 00:00:00 Completed [facility] SARS-COV-2 COVID-19 MODERNA 12+ YRS VACCINE 2020-09-22 00:00:00 Completed [facility] SARS-COV-2 COVID-19 MODERNA 12+ YRS VACCINE 2020-09-22 00:00:00 Completed [facility] SARS-COV-2 COVID-19 MODERNA 12+ YRS VACCINE 2020-09-22 00:00:00 Completed [facility] SARS-COV-2 COVID-19 MODERNA 12+ YRS VACCINE 2020-09-22 00:00:00 Completed [facility] SARS-COV-2 COVID-19 MODERNA 12+ YRS VACCINE 2020-09-22 00:00:00 Completed [facility] SARS-COV-2 COVID-19 MODERNA 12+ YRS VACCINE 2020-09-22 00:00:00 Completed [facility] SARS-COV-2 COVID-19 MODERNA 12+ YRS VACCINE 2020-09-22 00:00:00 Completed [facility] SARS-COV-2 COVID-19 MODERNA 12+ YRS VACCINE 2020-09-22 00:00:00 Completed [facility] SARS-COV-2 COVID-19 MODERNA 12+ YRS VACCINE 2020-09-22 00:00:00 Completed [facility] SARS-COV-2 COVID-19 MODERNA 12+ YRS VACCINE 2020-09-22 00:00:00 Completed [facility] SARS-COV-2 COVID-19 MODERNA 12+ YRS VACCINE 2020-09-22 00:00:00 Completed [facility] SARS-COV-2 COVID-19 MODERNA 12+ YRS VACCINE 2020-09-22 00:00:00 Completed [facility] SARS-COV-2 COVID-19 MODERNA 12+ YRS VACCINE 2020-09-22 00:00:00 Completed [facility] SARS-COV-2 COVID-19 MODERNA 12+ YRS VACCINE 2020-09-22 00:00:00 Completed [facility] SARS-COV-2 COVID-19 MODERNA 12+ YRS VACCINE 2020-09-22 00:00:00 Completed [facility] SARS-COV-2 COVID-19 MODERNA 12+ YRS VACCINE 2020-09-22 00:00:00 Completed [facility] SARS-COV-2 COVID-19 MODERNA 12+ YRS VACCINE 2020-09-22 00:00:00 Completed [facility] SARS-COV-2 COVID-19 MODERNA 12+ YRS VACCINE 2020-09-22 00:00:00 Completed [facility] SARS-COV-2 COVID-19 MODERNA 12+ YRS VACCINE 2020-09-22 00:00:00 Completed [facility] SARS-COV-2 COVID-19 MODERNA 12+ YRS VACCINE 2020-09-22 00:00:00 Completed [facility] SARS-COV-2 COVID-19 MODERNA 12+ YRS VACCINE 2020-09-22 00:00:00 Completed [facility] SARS-COV-2 COVID-19 MODERNA 12+ YRS VACCINE 2020-09-22 00:00:00 Completed [facility] SARS-COV-2 COVID-19 MODERNA 12+ YRS VACCINE 2020-09-22 00:00:00 Completed [facility] SARS-COV-2 COVID-19 MODERNA 12+ YRS VACCINE 2020-09-22 00:00:00 Completed [facility] SARS-COV-2 COVID-19 MODERNA 12+ YRS VACCINE 2020-09-22 00:00:00 Completed [facility] SARS-COV-2 COVID-19 MODERNA 12+ YRS VACCINE 2020-09-22 00:00:00 Completed [facility] SARS-COV-2 COVID-19 MODERNA 12+ YRS VACCINE 2020-09-22 00:00:00 Completed [facility] SARS-COV-2 COVID-19 MODERNA 12+ YRS VACCINE 2020-09-22 00:00:00 Completed [facility] SARS-COV-2 COVID-19 MODERNA 12+ YRS VACCINE 2020-09-22 00:00:00 Completed [facility] Influenza Virus Vaccine Quad .5 mL IM 6+ MO 2020-06-12 00:00:00 Completed [facility] Influenza Virus Vaccine Quad .5 mL IM 6+ MO 2020-06-12 00:00:00 Completed [facility] Influenza Virus Vaccine Quad .5 mL IM 6+ MO 2020-06-12 00:00:00 Completed [facility] Influenza Virus Vaccine Quad .5 mL IM 6+ MO 2020-06-12 00:00:00 Completed [facility] Influenza Virus Vaccine Quad .5 mL IM 6+ MO 2020-06-12 00:00:00 Completed [facility] Influenza Virus Vaccine Quad .5 mL IM 6+ MO 2020-06-12 00:00:00 Completed [facility] Influenza Virus Vaccine Quad .5 mL IM 6+ MO 2020-06-12 00:00:00 Completed [facility] Influenza Virus Vaccine Quad .5 mL IM 6+ MO 2020-06-12 00:00:00 Completed [facility] Influenza Virus Vaccine Quad .5 mL IM 6+ MO 2020-06-12 00:00:00 Completed [facility] Influenza Virus Vaccine Quad .5 mL IM 6+ MO 2020-06-12 00:00:00 Completed [facility] Influenza Virus Vaccine Quad .5 mL IM 6+ MO 2020-06-12 00:00:00 Completed [facility] Influenza Virus Vaccine Quad .5 mL IM 6+ MO 2020-06-12 00:00:00 Completed [facility] Influenza Virus Vaccine Quad .5 mL IM 6+ MO 2020-06-12 00:00:00 Completed [facility] Influenza Virus Vaccine Quad .5 mL IM 6+ MO 2020-06-12 00:00:00 Completed [facility] Influenza Virus Vaccine Quad .5 mL IM 6+ MO 2020-06-12 00:00:00 Completed [facility] Influenza Virus Vaccine Quad .5 mL IM 6+ MO 2020-06-12 00:00:00 Completed [facility] Influenza Virus Vaccine Quad .5 mL IM 6+ MO 2020-06-12 00:00:00 Completed [facility] Influenza Virus Vaccine Quad .5 mL IM 6+ MO 2020-06-12 00:00:00 Completed [facility] Influenza Virus Vaccine Quad .5 mL IM 6+ MO 2020-06-12 00:00:00 Completed [facility] Influenza Virus Vaccine Quad .5 mL IM 6+ MO 2020-06-12 00:00:00 Completed [facility] Influenza Virus Vaccine Quad .5 mL IM 6+ MO 2020-06-12 00:00:00 Completed [facility] Influenza Virus Vaccine Quad .5 mL IM 6+ MO 2020-06-12 00:00:00 Completed [facility] Influenza Virus Vaccine Quad .5 mL IM 6+ MO 2020-06-12 00:00:00 Completed [facility] Influenza Virus Vaccine Quad .5 mL IM 6+ MO 2020-06-12 00:00:00 Completed [facility] Influenza Virus Vaccine Quad .5 mL IM 6+ MO 2020-06-12 00:00:00 Completed [facility] Influenza Virus Vaccine Quad .5 mL IM 6+ MO 2020-06-12 00:00:00 Completed [facility] Influenza Virus Vaccine Quad .5 mL IM 6+ MO 2020-06-12 00:00:00 Completed [facility] Influenza Virus Vaccine Quad .5 mL IM 6+ MO 2020-06-12 00:00:00 Completed [facility] Influenza Virus Vaccine Quad .5 mL IM 6+ MO 2020-06-12 00:00:00 Completed [facility] Influenza Virus Vaccine Quad .5 mL IM 6+ MO 2020-06-12 00:00:00 Completed [facility] Influenza Virus Vaccine Quad .5 mL IM 6+ MO 2020-06-12 00:00:00 Completed [facility] Influenza Virus Vaccine Quad .5 mL IM 6+ MO 2020-06-12 00:00:00 Completed [facility] Influenza Virus Vaccine Quad .5 mL IM 6+ MO 2020-06-12 00:00:00 Completed [facility] Influenza Virus Vaccine Quad .5 mL IM 6+ MO 2020-06-12 00:00:00 Completed [facility] Influenza Virus Vaccine Quad .5 mL IM 6+ MO 2020-06-12 00:00:00 Completed [facility] Influenza Virus Vaccine Quad .5 mL IM 6+ MO 2020-06-12 00:00:00 Completed [facility] Influenza Virus Vaccine Quad .5 mL IM 6+ MO 2020-06-12 00:00:00 Completed [facility] Influenza Virus Vaccine Quad .5 mL IM 6+ MO 2020-06-12 00:00:00 Completed [facility] Influenza Virus Vaccine Quad .5 mL IM 6+ MO 2020-06-12 00:00:00 Completed [facility] Influenza Virus Vaccine Quad .5 mL IM 6+ MO 2020-06-12 00:00:00 Completed [facility] Influenza Virus Vaccine Quad .5 mL IM 6+ MO 2020-06-12 00:00:00 Completed [facility] Influenza Virus Vaccine Quad .5 mL IM 6+ MO 2020-06-12 00:00:00 Completed [facility] Influenza Virus Vaccine Quad .5 mL IM 6+ MO 2020-06-12 00:00:00 Completed [facility] Influenza Virus Vaccine Quad .5 mL IM 6+ MO 2020-06-12 00:00:00 Completed [facility] Influenza Virus Vaccine Quad .5 mL IM 6+ MO 2020-06-12 00:00:00 Completed [facility] Influenza Virus Vaccine Quad .5 mL IM 6+ MO 2020-06-12 00:00:00 Completed [facility] Influenza Virus Vaccine Quad .5 mL IM 6+ MO 2020-06-12 00:00:00 Completed [facility] Influenza Virus Vaccine Quad .5 mL IM 6+ MO 2020-06-12 00:00:00 Completed [facility] Influenza Virus Vaccine Quad .5 mL IM 6+ MO 2020-06-12 00:00:00 Completed [facility] Influenza Virus Vaccine Quad .5 mL IM 6+ MO 2020-06-12 00:00:00 Completed [facility] Influenza Virus Vaccine Quad .5 mL IM 6+ MO 2020-06-12 00:00:00 Completed [facility] Influenza Virus Vaccine Quad .5 mL IM 6+ MO 2020-06-12 00:00:00 Completed [facility] Influenza Virus Vaccine Quad .5 mL IM 6+ MO 2020-06-12 00:00:00 Completed [facility] Influenza Virus Vaccine Quad .5 mL IM 6+ MO 2020-06-12 00:00:00 Completed [facility] Influenza Virus Vaccine Quad .5 mL IM 6+ MO 2020-06-12 00:00:00 Completed [facility] Influenza Virus Vaccine Quad .5 mL IM 6+ MO 2020-06-12 00:00:00 Completed [facility] Influenza Virus Vaccine Quad .5 mL IM 6+ MO 2020-06-12 00:00:00 Completed [facility] Influenza Virus Vaccine Quad .5 mL IM 6+ MO 2020-06-12 00:00:00 Completed [facility] Influenza Virus Vaccine Quad .5 mL IM 6+ MO 2020-06-12 00:00:00 Completed [facility] Influenza Virus Vaccine Quad .5 mL IM 6+ MO 2020-06-12 00:00:00 Completed [facility] Influenza Virus Vaccine Quad .5 mL IM 6+ MO 2020-06-12 00:00:00 Completed [facility] Influenza Virus Vaccine Quad .5 mL IM 6+ MO 2020-06-12 00:00:00 Completed [facility] Influenza Virus Vaccine Quad .5 mL IM 6+ MO 2020-06-12 00:00:00 Completed [facility] Influenza Virus Vaccine Quad .5 mL IM 6+ MO 2020-06-12 00:00:00 Completed [facility] Influenza Virus Vaccine Quad .5 mL IM 6+ MO 2020-06-12 00:00:00 Completed [facility] Td 2019-07-16 00:00:00 Completed [facility] Td 2019-07-16 00:00:00 Completed [facility] Td 2019-07-16 00:00:00 Completed [facility] Td 2019-07-16 00:00:00 Completed [facility] Td 2019-07-16 00:00:00 Completed [facility] Td 2019-07-16 00:00:00 Completed [facility] Td 2019-07-16 00:00:00 Completed [facility] Td 2019-07-16 00:00:00 Completed [facility] Td 2019-07-16 00:00:00 Completed [facility] Td 2019-07-16 00:00:00 Completed [facility] Td 2019-07-16 00:00:00 Completed [facility] Td 2019-07-16 00:00:00 Completed [facility] Td 2019-07-16 00:00:00 Completed [facility] Td 2019-07-16 00:00:00 Completed [facility] Td 2019-07-16 00:00:00 Completed [facility] Td 2019-07-16 00:00:00 Completed [facility] Td 2019-07-16 00:00:00 Completed [facility] Td 2019-07-16 00:00:00 Completed [facility] Td 2019-07-16 00:00:00 Completed [facility] Td 2019-07-16 00:00:00 Completed [facility] Td 2019-07-16 00:00:00 Completed [facility] Td 2019-07-16 00:00:00 Completed [facility] Td 2019-07-16 00:00:00 Completed [facility] Td 2019-07-16 00:00:00 Completed [facility] Td 2019-07-16 00:00:00 Completed [facility] Td 2019-07-16 00:00:00 Completed [facility] TD, NOS 2019-07-16 00:00:00 Completed [facility] TD, NOS 2019-07-16 00:00:00 Completed [facility] TD, NOS 2019-07-16 00:00:00 Completed [facility] TD, NOS 2019-07-16 00:00:00 Completed [facility] TD, NOS 2019-07-16 00:00:00 Completed [facility] TD, NOS 2019-07-16 00:00:00 Completed [facility] TD, NOS 2019-07-16 00:00:00 Completed [facility] TD, NOS 2019-07-16 00:00:00 Completed [facility] TD, NOS 2019-07-16 00:00:00 Completed [facility] TD, NOS 2019-07-16 00:00:00 Completed [facility] TD, NOS 2019-07-16 00:00:00 Completed [facility] TD, NOS 2019-07-16 00:00:00 Completed [facility] TD, NOS 2019-07-16 00:00:00 Completed [facility] TD, NOS 2019-07-16 00:00:00 Completed [facility] TD, NOS 2019-07-16 00:00:00 Completed [facility] TD, NOS 2019-07-16 00:00:00 Completed [facility] TD, NOS 2019-07-16 00:00:00 Completed [facility] TD, NOS 2019-07-16 00:00:00 Completed [facility] TD, NOS 2019-07-16 00:00:00 Completed [facility] TD, NOS 2019-07-16 00:00:00 Completed [facility] TD, NOS 2019-07-16 00:00:00 Completed [facility] TD, NOS 2019-07-16 00:00:00 Completed [facility] TD, NOS 2019-07-16 00:00:00 Completed [facility] TD, NOS 2019-07-16 00:00:00 Completed [facility] TD, NOS 2019-07-16 00:00:00 Completed [facility] TD, NOS 2019-07-16 00:00:00 Completed [facility] TD, NOS 2019-07-16 00:00:00 Completed [facility] TD, NOS 2019-07-16 00:00:00 Completed [facility] TD, NOS 2019-07-16 00:00:00 Completed [facility] TD, NOS 2019-07-16 00:00:00 Completed [facility] TD, NOS 2019-07-16 00:00:00 Completed [facility] TD, NOS 2019-07-16 00:00:00 Completed [facility] TD, NOS 2019-07-16 00:00:00 Completed [facility] TD, NOS 2019-07-16 00:00:00 Completed [facility] TD, NOS 2019-07-16 00:00:00 Completed [facility] TD, NOS 2019-07-16 00:00:00 Completed [facility] TD, NOS 2019-07-16 00:00:00 Completed [facility] TD, NOS 2019-07-16 00:00:00 Completed [facility] TD, NOS 2019-07-16 00:00:00 Completed [facility] Influenza Virus Vaccine 2019-06-14 00:00:00 Completed [facility] Influenza Virus Vaccine 2019-06-14 00:00:00 Completed [facility] Influenza Virus Vaccine 2019-06-14 00:00:00 Completed [facility] Influenza Virus Vaccine 2019-06-14 00:00:00 Completed [facility] Influenza Virus Vaccine 2019-06-14 00:00:00 Completed [facility] Influenza Virus Vaccine 2019-06-14 00:00:00 Completed [facility] Influenza Virus Vaccine 2019-06-14 00:00:00 Completed [facility] Influenza Virus Vaccine 2019-06-14 00:00:00 Completed [facility] Influenza Virus Vaccine 2019-06-14 00:00:00 Completed [facility] Influenza Virus Vaccine 2019-06-14 00:00:00 Completed [facility] Influenza Virus Vaccine 2019-06-14 00:00:00 Completed [facility] Influenza Virus Vaccine 2019-06-14 00:00:00 Completed [facility] Influenza Virus Vaccine 2019-06-14 00:00:00 Completed [facility] Influenza Virus Vaccine 2019-06-14 00:00:00 Completed [facility] Influenza Virus Vaccine 2019-06-14 00:00:00 Completed [facility] Influenza Virus Vaccine 2019-06-14 00:00:00 Completed [facility] Influenza Virus Vaccine 2019-06-14 00:00:00 Completed [facility] Influenza Virus Vaccine 2019-06-14 00:00:00 Completed [facility] Influenza Virus Vaccine 2019-06-14 00:00:00 Completed [facility] Influenza Virus Vaccine 2019-06-14 00:00:00 Completed [facility] Influenza Virus Vaccine 2019-06-14 00:00:00 Completed [facility] Influenza Virus Vaccine 2019-06-14 00:00:00 Completed [facility] Influenza Virus Vaccine 2019-06-14 00:00:00 Completed [facility] Influenza Virus Vaccine 2019-06-14 00:00:00 Completed [facility] Influenza Virus Vaccine 2019-06-14 00:00:00 Completed [facility] Influenza Virus Vaccine 2019-06-14 00:00:00 Completed [facility] Influenza Virus Vaccine 2019-06-14 00:00:00 Completed [facility] Influenza Virus Vaccine 2019-06-14 00:00:00 Completed [facility] Influenza Virus Vaccine 2019-06-14 00:00:00 Completed [facility] Influenza Virus Vaccine 2019-06-14 00:00:00 Completed [facility] Influenza Virus Vaccine 2019-06-14 00:00:00 Completed [facility] Influenza Virus Vaccine 2019-06-14 00:00:00 Completed [facility] Influenza Virus Vaccine 2019-06-14 00:00:00 Completed [facility] Influenza Virus Vaccine 2019-06-14 00:00:00 Completed [facility] Influenza Virus Vaccine 2019-06-14 00:00:00 Completed [facility] Influenza Virus Vaccine 2019-06-14 00:00:00 Completed [facility] Influenza Virus Vaccine 2019-06-14 00:00:00 Completed [facility] Influenza Virus Vaccine 2019-06-14 00:00:00 Completed [facility] Influenza Virus Vaccine 2019-06-14 00:00:00 Completed [facility] Influenza Virus Vaccine 2019-06-14 00:00:00 Completed [facility] Influenza Virus Vaccine 2019-06-14 00:00:00 Completed [facility] Influenza Virus Vaccine 2019-06-14 00:00:00 Completed [facility] Influenza Virus Vaccine 2019-06-14 00:00:00 Completed [facility] Influenza Virus Vaccine 2019-06-14 00:00:00 Completed [facility] Influenza Virus Vaccine 2019-06-14 00:00:00 Completed [facility] Influenza Virus Vaccine 2019-06-14 00:00:00 Completed [facility] Influenza Virus Vaccine 2019-06-14 00:00:00 Completed [facility] Influenza Virus Vaccine 2019-06-14 00:00:00 Completed [facility] Influenza Virus Vaccine 2019-06-14 00:00:00 Completed [facility] Influenza Virus Vaccine 2019-06-14 00:00:00 Completed [facility] Influenza Virus Vaccine 2019-06-14 00:00:00 Completed [facility] Influenza Virus Vaccine 2019-06-14 00:00:00 Completed [facility] Influenza Virus Vaccine 2019-06-14 00:00:00 Completed [facility] Influenza Virus Vaccine 2019-06-14 00:00:00 Completed [facility] Influenza Virus Vaccine 2019-06-14 00:00:00 Completed [facility] Influenza Virus Vaccine 2019-06-14 00:00:00 Completed [facility] Influenza Virus Vaccine 2019-06-14 00:00:00 Completed [facility] Influenza Virus Vaccine 2019-06-14 00:00:00 Completed [facility] Influenza Virus Vaccine 2019-06-14 00:00:00 Completed [facility] Influenza Virus Vaccine 2019-06-14 00:00:00 Completed [facility] Influenza Virus Vaccine 2019-06-14 00:00:00 Completed [facility] Influenza Virus Vaccine 2019-06-14 00:00:00 Completed [facility] Influenza Virus Vaccine 2019-06-14 00:00:00 Completed [facility] Influenza Virus Vaccine 2019-06-14 00:00:00 Completed [facility] Influenza Virus Vaccine 2019-06-14 00:00:00 Completed [facility] Pneumococcal Polysaccharide, PPSV23 (PNEUMOVAX) 2018-10-20 00:00:00 Completed [facility] Pneumococcal Polysaccharide, PPSV23 (PNEUMOVAX) 2018-10-20 00:00:00 Completed [facility] Pneumococcal Polysaccharide, PPSV23 (PNEUMOVAX) 2018-10-20 00:00:00 Completed [facility] Pneumococcal Polysaccharide, PPSV23 (PNEUMOVAX) 2018-10-20 00:00:00 Completed [facility] Pneumococcal Polysaccharide, PPSV23 (PNEUMOVAX) 2018-10-20 00:00:00 Completed [facility] Pneumococcal Polysaccharide, PPSV23 (PNEUMOVAX) 2018-10-20 00:00:00 Completed [facility] Pneumococcal Polysaccharide, PPSV23 (PNEUMOVAX) 2018-10-20 00:00:00 Completed [facility] Pneumococcal Polysaccharide, PPSV23 (PNEUMOVAX) 2018-10-20 00:00:00 Completed [facility] Pneumococcal Polysaccharide, PPSV23 (PNEUMOVAX) 2018-10-20 00:00:00 Completed [facility] Pneumococcal Polysaccharide, PPSV23 (PNEUMOVAX) 2018-10-20 00:00:00 Completed [facility] Pneumococcal Polysaccharide, PPSV23 (PNEUMOVAX) 2018-10-20 00:00:00 Completed [facility] Pneumococcal Polysaccharide, PPSV23 (PNEUMOVAX) 2018-10-20 00:00:00 Completed [facility] Pneumococcal Polysaccharide, PPSV23 (PNEUMOVAX) 2018-10-20 00:00:00 Completed [facility] Pneumococcal Polysaccharide, PPSV23 (PNEUMOVAX) 2018-10-20 00:00:00 Completed [facility] Pneumococcal Polysaccharide, PPSV23 (PNEUMOVAX) 2018-10-20 00:00:00 Completed [facility] Pneumococcal Polysaccharide, PPSV23 (PNEUMOVAX) 2018-10-20 00:00:00 Completed [facility] Pneumococcal Polysaccharide, PPSV23 (PNEUMOVAX) 2018-10-20 00:00:00 Completed [facility] Pneumococcal Polysaccharide, PPSV23 (PNEUMOVAX) 2018-10-20 00:00:00 Completed [facility] Pneumococcal Polysaccharide, PPSV23 (PNEUMOVAX) 2018-10-20 00:00:00 Completed [facility] Pneumococcal Polysaccharide, PPSV23 (PNEUMOVAX) 2018-10-20 00:00:00 Completed [facility] Pneumococcal Polysaccharide, PPSV23 (PNEUMOVAX) 2018-10-20 00:00:00 Completed [facility] Pneumococcal Polysaccharide, PPSV23 (PNEUMOVAX) 2018-10-20 00:00:00 Completed [facility] Pneumococcal Polysaccharide, PPSV23 (PNEUMOVAX) 2018-10-20 00:00:00 Completed [facility] Pneumococcal Polysaccharide, PPSV23 (PNEUMOVAX) 2018-10-20 00:00:00 Completed [facility] Pneumococcal Polysaccharide, PPSV23 (PNEUMOVAX) 2018-10-20 00:00:00 Completed [facility] Pneumococcal Polysaccharide, PPSV23 (PNEUMOVAX) 2018-10-20 00:00:00 Completed [facility] Pneumococcal Polysaccharide, PPSV23 (PNEUMOVAX) 2018-10-20 00:00:00 Completed [facility] Pneumococcal Polysaccharide, PPSV23 (PNEUMOVAX) 2018-10-20 00:00:00 Completed [facility] Pneumococcal Polysaccharide, PPSV23 (PNEUMOVAX) 2018-10-20 00:00:00 Completed [facility] Pneumococcal Polysaccharide, PPSV23 (PNEUMOVAX) 2018-10-20 00:00:00 Completed [facility] Pneumococcal Polysaccharide, PPSV23 (PNEUMOVAX) 2018-10-20 00:00:00 Completed [facility] Pneumococcal Polysaccharide, PPSV23 (PNEUMOVAX) 2018-10-20 00:00:00 Completed [facility] Pneumococcal Polysaccharide, PPSV23 (PNEUMOVAX) 2018-10-20 00:00:00 Completed [facility] Pneumococcal Polysaccharide, PPSV23 (PNEUMOVAX) 2018-10-20 00:00:00 Completed [facility] Pneumococcal Polysaccharide, PPSV23 (PNEUMOVAX) 2018-10-20 00:00:00 Completed [facility] Pneumococcal Polysaccharide, PPSV23 (PNEUMOVAX) 2018-10-20 00:00:00 Completed [facility] Pneumococcal Polysaccharide, PPSV23 (PNEUMOVAX) 2018-10-20 00:00:00 Completed [facility] Pneumococcal Polysaccharide, PPSV23 (PNEUMOVAX) 2018-10-20 00:00:00 Completed [facility] Pneumococcal Polysaccharide, PPSV23 (PNEUMOVAX) 2018-10-20 00:00:00 Completed [facility] Pneumococcal Polysaccharide, PPSV23 (PNEUMOVAX) 2018-10-20 00:00:00 Completed [facility] Pneumococcal Polysaccharide, PPSV23 (PNEUMOVAX) 2018-10-20 00:00:00 Completed [facility] Pneumococcal Polysaccharide, PPSV23 (PNEUMOVAX) 2018-10-20 00:00:00 Completed [facility] Pneumococcal Polysaccharide, PPSV23 (PNEUMOVAX) 2018-10-20 00:00:00 Completed [facility] Pneumococcal Polysaccharide, PPSV23 (PNEUMOVAX) 2018-10-20 00:00:00 Completed [facility] Pneumococcal Polysaccharide, PPSV23 (PNEUMOVAX) 2018-10-20 00:00:00 Completed [facility] Pneumococcal Polysaccharide, PPSV23 (PNEUMOVAX) 2018-10-20 00:00:00 Completed [facility] Pneumococcal Polysaccharide, PPSV23 (PNEUMOVAX) 2018-10-20 00:00:00 Completed [facility] Pneumococcal Polysaccharide, PPSV23 (PNEUMOVAX) 2018-10-20 00:00:00 Completed [facility] Pneumococcal Polysaccharide, PPSV23 (PNEUMOVAX) 2018-10-20 00:00:00 Completed [facility] Pneumococcal Polysaccharide, PPSV23 (PNEUMOVAX) 2018-10-20 00:00:00 Completed [facility] Pneumococcal Polysaccharide, PPSV23 (PNEUMOVAX) 2018-10-20 00:00:00 Completed [facility] Pneumococcal Polysaccharide, PPSV23 (PNEUMOVAX) 2018-10-20 00:00:00 Completed [facility] Pneumococcal Polysaccharide, PPSV23 (PNEUMOVAX) 2018-10-20 00:00:00 Completed [facility] Pneumococcal Polysaccharide, PPSV23 (PNEUMOVAX) 2018-10-20 00:00:00 Completed [facility] Pneumococcal Polysaccharide, PPSV23 (PNEUMOVAX) 2018-10-20 00:00:00 Completed [facility] Pneumococcal Polysaccharide, PPSV23 (PNEUMOVAX) 2018-10-20 00:00:00 Completed [facility] Pneumococcal Polysaccharide, PPSV23 (PNEUMOVAX) 2018-10-20 00:00:00 Completed [facility] Pneumococcal Polysaccharide, PPSV23 (PNEUMOVAX) 2018-10-20 00:00:00 Completed [facility] Pneumococcal Polysaccharide, PPSV23 (PNEUMOVAX) 2018-10-20 00:00:00 Completed [facility] Pneumococcal Polysaccharide, PPSV23 (PNEUMOVAX) 2018-10-20 00:00:00 Completed [facility] Pneumococcal Polysaccharide, PPSV23 (PNEUMOVAX) 2018-10-20 00:00:00 Completed [facility] Pneumococcal Polysaccharide, PPSV23 (PNEUMOVAX) 2018-10-20 00:00:00 Completed [facility] Pneumococcal Polysaccharide, PPSV23 (PNEUMOVAX) 2018-10-20 00:00:00 Completed [facility] Pneumococcal Polysaccharide, PPSV23 (PNEUMOVAX) 2018-10-20 00:00:00 Completed [facility] Pneumococcal Polysaccharide, PPSV23 (PNEUMOVAX) 2018-10-20 00:00:00 Completed [facility] Influenza Virus Vaccine - Whole 2018-06-25 00:00:00 Completed [facility] Influenza Virus Vaccine - Whole 2018-06-25 00:00:00 Completed [facility] Influenza Virus Vaccine - Whole 2018-06-25 00:00:00 Completed [facility] Influenza Virus Vaccine - Whole 2018-06-25 00:00:00 Completed [facility] Influenza Virus Vaccine - Whole 2018-06-25 00:00:00 Completed [facility] Influenza Virus Vaccine - Whole 2018-06-25 00:00:00 Completed [facility] Influenza Virus Vaccine - Whole 2018-06-25 00:00:00 Completed [facility] Influenza Virus Vaccine - Whole 2018-06-25 00:00:00 Completed [facility] Influenza Virus Vaccine - Whole 2018-06-25 00:00:00 Completed [facility] Influenza Virus Vaccine - Whole 2018-06-25 00:00:00 Completed [facility] Influenza Virus Vaccine - Whole 2018-06-25 00:00:00 Completed [facility] Influenza Virus Vaccine - Whole 2018-06-25 00:00:00 Completed [facility] Influenza Virus Vaccine - Whole 2018-06-25 00:00:00 Completed [facility] Influenza Virus Vaccine - Whole 2018-06-25 00:00:00 Completed [facility] Influenza Virus Vaccine - Whole 2018-06-25 00:00:00 Completed [facility] Influenza Virus Vaccine - Whole 2018-06-25 00:00:00 Completed [facility] Influenza Virus Vaccine - Whole 2018-06-25 00:00:00 Completed [facility] Influenza Virus Vaccine - Whole 2018-06-25 00:00:00 Completed [facility] Influenza Virus Vaccine - Whole 2018-06-25 00:00:00 Completed [facility] Influenza Virus Vaccine - Whole 2018-06-25 00:00:00 Completed [facility] Influenza Virus Vaccine - Whole 2018-06-25 00:00:00 Completed [facility] Influenza Virus Vaccine - Whole 2018-06-25 00:00:00 Completed [facility] Influenza Virus Vaccine - Whole 2018-06-25 00:00:00 Completed [facility] Influenza Virus Vaccine - Whole 2018-06-25 00:00:00 Completed [facility] Influenza Virus Vaccine - Whole 2018-06-25 00:00:00 Completed [facility] Influenza Virus Vaccine - Whole 2018-06-25 00:00:00 Completed [facility] Influenza Virus Vaccine - Whole 2018-06-25 00:00:00 Completed [facility] Influenza Virus Vaccine - Whole 2018-06-25 00:00:00 Completed [facility] Influenza Virus Vaccine - Whole 2018-06-25 00:00:00 Completed [facility] Influenza Virus Vaccine - Whole 2018-06-25 00:00:00 Completed [facility] Influenza Virus Vaccine - Whole 2018-06-25 00:00:00 Completed [facility] Influenza Virus Vaccine - Whole 2018-06-25 00:00:00 Completed [facility] Influenza Virus Vaccine - Whole 2018-06-25 00:00:00 Completed [facility] Influenza Virus Vaccine - Whole 2018-06-25 00:00:00 Completed [facility] Influenza Virus Vaccine - Whole 2018-06-25 00:00:00 Completed [facility] Influenza Virus Vaccine - Whole 2018-06-25 00:00:00 Completed [facility] Influenza Virus Vaccine - Whole 2018-06-25 00:00:00 Completed [facility] Influenza Virus Vaccine - Whole 2018-06-25 00:00:00 Completed [facility] Influenza Virus Vaccine - Whole 2018-06-25 00:00:00 Completed [facility] Influenza Virus Vaccine - Whole 2018-06-25 00:00:00 Completed [facility] Influenza Virus Vaccine - Whole 2018-06-25 00:00:00 Completed [facility] Influenza Virus Vaccine - Whole 2018-06-25 00:00:00 Completed [facility] Influenza Virus Vaccine - Whole 2018-06-25 00:00:00 Completed [facility] Influenza Virus Vaccine - Whole 2018-06-25 00:00:00 Completed [facility] Influenza Virus Vaccine - Whole 2018-06-25 00:00:00 Completed [facility] Influenza Virus Vaccine - Whole 2018-06-25 00:00:00 Completed [facility] Influenza Virus Vaccine - Whole 2018-06-25 00:00:00 Completed [facility] Influenza Virus Vaccine - Whole 2018-06-25 00:00:00 Completed [facility] Influenza Virus Vaccine - Whole 2018-06-25 00:00:00 Completed [facility] Influenza Virus Vaccine - Whole 2018-06-25 00:00:00 Completed [facility] Influenza Virus Vaccine - Whole 2018-06-25 00:00:00 Completed [facility] Influenza Virus Vaccine - Whole 2018-06-25 00:00:00 Completed [facility] Influenza Virus Vaccine - Whole 2018-06-25 00:00:00 Completed [facility] Influenza Virus Vaccine - Whole 2018-06-25 00:00:00 Completed [facility] Influenza Virus Vaccine - Whole 2018-06-25 00:00:00 Completed [facility] Influenza Virus Vaccine - Whole 2018-06-25 00:00:00 Completed [facility] Influenza Virus Vaccine - Whole 2018-06-25 00:00:00 Completed [facility] Influenza Virus Vaccine - Whole 2018-06-25 00:00:00 Completed [facility] Influenza Virus Vaccine - Whole 2018-06-25 00:00:00 Completed [facility] Influenza Virus Vaccine - Whole 2018-06-25 00:00:00 Completed [facility] Influenza Virus Vaccine - Whole 2018-06-25 00:00:00 Completed [facility] Influenza Virus Vaccine - Whole 2018-06-25 00:00:00 Completed [facility] Influenza Virus Vaccine - Whole 2018-06-25 00:00:00 Completed [facility] Influenza Virus Vaccine - Whole 2018-06-25 00:00:00 Completed [facility] Influenza Virus Vaccine - Whole 2018-06-25 00:00:00 Completed [facility] Hep B, Adol or Pedi Dosage 2018-02-03 00:00:00 Completed [facility] Hep B, Adol or Pedi Dosage 2018-02-03 00:00:00 Completed [facility] Hep B, Adol or Pedi Dosage 2018-02-03 00:00:00 Completed [facility] Hep B, Adol or Pedi Dosage 2018-02-03 00:00:00 Completed [facility] Hep B, Adol or Pedi Dosage 2018-02-03 00:00:00 Completed [facility] Hep B, Adol or Pedi Dosage 2018-02-03 00:00:00 Completed [facility] Hep B, Adol or Pedi Dosage 2018-02-03 00:00:00 Completed [facility] Hep B, Adol or Pedi Dosage 2018-02-03 00:00:00 Completed [facility] Hep B, Adol or Pedi Dosage 2018-02-03 00:00:00 Completed [facility] Hep B, Adol or Pedi Dosage 2018-02-03 00:00:00 Completed [facility] Hep B, Adol or Pedi Dosage 2018-02-03 00:00:00 Completed [facility] Hep B, Adol or Pedi Dosage 2018-02-03 00:00:00 Completed [facility] Hep B, Adol or Pedi Dosage 2018-02-03 00:00:00 Completed [facility] Hep B, Adol or Pedi Dosage 2018-02-03 00:00:00 Completed [facility] Hep B, Adol or Pedi Dosage 2018-02-03 00:00:00 Completed [facility] Hep B, Adol or Pedi Dosage 2018-02-03 00:00:00 Completed [facility] Hep B, Adol or Pedi Dosage 2018-02-03 00:00:00 Completed [facility] Hep B, Adol or Pedi Dosage 2018-02-03 00:00:00 Completed [facility] Hep B, Adol or Pedi Dosage 2018-02-03 00:00:00 Completed [facility] Hep B, Adol or Pedi Dosage 2018-02-03 00:00:00 Completed [facility] Hep B, Adol or Pedi Dosage 2018-02-03 00:00:00 Completed [facility] Hep B, Adol or Pedi Dosage 2018-02-03 00:00:00 Completed [facility] Hep B, Adol or Pedi Dosage 2018-02-03 00:00:00 Completed [facility] Hep B, Adol or Pedi Dosage 2018-02-03 00:00:00 Completed [facility] Hep B, Adol or Pedi Dosage 2018-02-03 00:00:00 Completed [facility] Hep B, Adol or Pedi Dosage 2018-02-03 00:00:00 Completed [facility] Hep B, Adol or Pedi Dosage 2018-02-03 00:00:00 Completed [facility] Hep B, Adol or Pedi Dosage 2018-02-03 00:00:00 Completed [facility] Hep B, Adol or Pedi Dosage 2018-02-03 00:00:00 Completed [facility] Hep B, Adol or Pedi Dosage 2018-02-03 00:00:00 Completed [facility] Hep B, Adol or Pedi Dosage 2018-02-03 00:00:00 Completed [facility] Hep B, Adol or Pedi Dosage 2018-02-03 00:00:00 Completed [facility] Hep B, Adol or Pedi Dosage 2018-02-03 00:00:00 Completed [facility] Hep B, Adol or Pedi Dosage 2018-02-03 00:00:00 Completed [facility] Hep B, Adol or Pedi Dosage 2018-02-03 00:00:00 Completed [facility] Hep B, Adol or Pedi Dosage 2018-02-03 00:00:00 Completed [facility] Hep B, Adol or Pedi Dosage 2018-02-03 00:00:00 Completed [facility] Hep B, Adol or Pedi Dosage 2018-02-03 00:00:00 Completed [facility] Hep B, Adol or Pedi Dosage 2018-02-03 00:00:00 Completed [facility] Hep B, Adol or Pedi Dosage 2018-02-03 00:00:00 Completed [facility] Hep B, Adol or Pedi Dosage 2018-02-03 00:00:00 Completed [facility] Hep B, Adol or Pedi Dosage 2018-02-03 00:00:00 Completed [facility] Hep B, Adol or Pedi Dosage 2018-02-03 00:00:00 Completed [facility] Hep B, Adol or Pedi Dosage 2018-02-03 00:00:00 Completed [facility] Hep B, Adol or Pedi Dosage 2018-02-03 00:00:00 Completed [facility] Hep B, Adol or Pedi Dosage 2018-02-03 00:00:00 Completed [facility] Hep B, Adol or Pedi Dosage 2018-02-03 00:00:00 Completed [facility] Hep B, Adol or Pedi Dosage 2018-02-03 00:00:00 Completed [facility] Hep B, Adol or Pedi Dosage 2018-02-03 00:00:00 Completed [facility] Hep B, Adol or Pedi Dosage 2018-02-03 00:00:00 Completed [facility] Hep B, Adol or Pedi Dosage 2018-02-03 00:00:00 Completed [facility] Hep B, Adol or Pedi Dosage 2018-02-03 00:00:00 Completed [facility] Hep B, Adol or Pedi Dosage 2018-02-03 00:00:00 Completed [facility] Hep B, Adol or Pedi Dosage 2018-02-03 00:00:00 Completed [facility] Hep B, Adol or Pedi Dosage 2018-02-03 00:00:00 Completed [facility] Hep B, Adol or Pedi Dosage 2018-02-03 00:00:00 Completed [facility] Hep B, Adol or Pedi Dosage 2018-02-03 00:00:00 Completed [facility] Hep B, Adol or Pedi Dosage 2018-02-03 00:00:00 Completed [facility] Hep B, Adol or Pedi Dosage 2018-02-03 00:00:00 Completed [facility] Hep B, Adol or Pedi Dosage 2018-02-03 00:00:00 Completed [facility] Hep B, Adol or Pedi Dosage 2018-02-03 00:00:00 Completed [facility] Hep B, Adol or Pedi Dosage 2018-02-03 00:00:00 Completed [facility] Hep B, Adol or Pedi Dosage 2018-02-03 00:00:00 Completed [facility] Hep B, Adol or Pedi Dosage 2018-02-03 00:00:00 Completed [facility] Hep B, Adol or Pedi Dosage 2018-02-03 00:00:00 Completed [facility] Influenza Virus Vaccine 2017-07-03 00:00:00 Completed [facility] Influenza Virus Vaccine 2017-07-03 00:00:00 Completed [facility] Influenza Virus Vaccine 2017-07-03 00:00:00 Completed [facility] Influenza Virus Vaccine 2017-07-03 00:00:00 Completed [facility] Influenza Virus Vaccine 2017-07-03 00:00:00 Completed [facility] Influenza Virus Vaccine 2017-07-03 00:00:00 Completed [facility] Influenza Virus Vaccine 2017-07-03 00:00:00 Completed [facility] Influenza Virus Vaccine 2017-07-03 00:00:00 Completed [facility] Influenza Virus Vaccine 2017-07-03 00:00:00 Completed [facility] Influenza Virus Vaccine 2017-07-03 00:00:00 Completed [facility] Influenza Virus Vaccine 2017-07-03 00:00:00 Completed [facility] Influenza Virus Vaccine 2017-07-03 00:00:00 Completed [facility] Influenza Virus Vaccine 2017-07-03 00:00:00 Completed [facility] Influenza Virus Vaccine 2017-07-03 00:00:00 Completed [facility] Influenza Virus Vaccine 2017-07-03 00:00:00 Completed [facility] Influenza Virus Vaccine 2017-07-03 00:00:00 Completed [facility] Influenza Virus Vaccine 2017-07-03 00:00:00 Completed [facility] Influenza Virus Vaccine 2017-07-03 00:00:00 Completed [facility] Influenza Virus Vaccine 2017-07-03 00:00:00 Completed [facility] Influenza Virus Vaccine 2017-07-03 00:00:00 Completed [facility] Influenza Virus Vaccine 2017-07-03 00:00:00 Completed [facility] Influenza Virus Vaccine 2017-07-03 00:00:00 Completed [facility] Influenza Virus Vaccine 2017-07-03 00:00:00 Completed [facility] Influenza Virus Vaccine 2017-07-03 00:00:00 Completed [facility] Influenza Virus Vaccine 2017-07-03 00:00:00 Completed [facility] Influenza Virus Vaccine 2017-07-03 00:00:00 Completed [facility] Influenza Virus Vaccine 2017-07-03 00:00:00 Completed [facility] Influenza Virus Vaccine 2017-07-03 00:00:00 Completed [facility] Influenza Virus Vaccine 2017-07-03 00:00:00 Completed [facility] Influenza Virus Vaccine 2017-07-03 00:00:00 Completed [facility] Influenza Virus Vaccine 2017-07-03 00:00:00 Completed [facility] Influenza Virus Vaccine 2017-07-03 00:00:00 Completed [facility] Influenza Virus Vaccine 2017-07-03 00:00:00 Completed [facility] Influenza Virus Vaccine 2017-07-03 00:00:00 Completed [facility] Influenza Virus Vaccine 2017-07-03 00:00:00 Completed [facility] Influenza Virus Vaccine 2017-07-03 00:00:00 Completed [facility] Influenza Virus Vaccine 2017-07-03 00:00:00 Completed [facility] Influenza Virus Vaccine 2017-07-03 00:00:00 Completed [facility] Influenza Virus Vaccine 2017-07-03 00:00:00 Completed [facility] Influenza Virus Vaccine 2017-07-03 00:00:00 Completed [facility] Influenza Virus Vaccine 2017-07-03 00:00:00 Completed [facility] Influenza Virus Vaccine 2017-07-03 00:00:00 Completed [facility] Influenza Virus Vaccine 2017-07-03 00:00:00 Completed [facility] Influenza Virus Vaccine 2017-07-03 00:00:00 Completed [facility] Influenza Virus Vaccine 2017-07-03 00:00:00 Completed [facility] Influenza Virus Vaccine 2017-07-03 00:00:00 Completed [facility] Influenza Virus Vaccine 2017-07-03 00:00:00 Completed [facility] Influenza Virus Vaccine 2017-07-03 00:00:00 Completed [facility] Influenza Virus Vaccine 2017-07-03 00:00:00 Completed [facility] Influenza Virus Vaccine 2017-07-03 00:00:00 Completed [facility] Influenza Virus Vaccine 2017-07-03 00:00:00 Completed [facility] Influenza Virus Vaccine 2017-07-03 00:00:00 Completed [facility] Influenza Virus Vaccine 2017-07-03 00:00:00 Completed [facility] Influenza Virus Vaccine 2017-07-03 00:00:00 Completed [facility] Influenza Virus Vaccine 2017-07-03 00:00:00 Completed [facility] Influenza Virus Vaccine 2017-07-03 00:00:00 Completed [facility] Influenza Virus Vaccine 2017-07-03 00:00:00 Completed [facility] Influenza Virus Vaccine 2017-07-03 00:00:00 Completed [facility] Influenza Virus Vaccine 2017-07-03 00:00:00 Completed [facility] Influenza Virus Vaccine 2017-07-03 00:00:00 Completed [facility] Influenza Virus Vaccine 2017-07-03 00:00:00 Completed [facility] Influenza Virus Vaccine 2017-07-03 00:00:00 Completed [facility] Influenza Virus Vaccine 2017-07-03 00:00:00 Completed [facility] Influenza Virus Vaccine 2017-07-03 00:00:00 Completed [facility] Influenza Virus Vaccine 2017-07-03 00:00:00 Completed [facility] TDAP 2016-12-14 00:00:00 Completed [facility] MMR 2016-12-14 00:00:00 Completed [facility] Varicella (varivax)(chicken pox) 2016-12-14 00:00:00 Completed [facility] TDAP 2016-12-14 00:00:00 Completed [facility] MMR 2016-12-14 00:00:00 Completed [facility] Varicella (varivax)(chicken pox) 2016-12-14 00:00:00 Completed [facility] TDAP 2016-12-14 00:00:00 Completed [facility] MMR 2016-12-14 00:00:00 Completed [facility] Varicella (varivax)(chicken pox) 2016-12-14 00:00:00 Completed [facility] TDAP 2016-12-14 00:00:00 Completed [facility] MMR 2016-12-14 00:00:00 Completed [facility] Varicella (varivax)(chicken pox) 2016-12-14 00:00:00 Completed [facility] TDAP 2016-12-14 00:00:00 Completed [facility] MMR 2016-12-14 00:00:00 Completed [facility] Varicella (varivax)(chicken pox) 2016-12-14 00:00:00 Completed [facility] TDAP 2016-12-14 00:00:00 Completed [facility] MMR 2016-12-14 00:00:00 Completed [facility] Varicella (varivax)(chicken pox) 2016-12-14 00:00:00 Completed [facility] TDAP 2016-12-14 00:00:00 Completed [facility] MMR 2016-12-14 00:00:00 Completed [facility] Varicella (varivax)(chicken pox) 2016-12-14 00:00:00 Completed [facility] TDAP 2016-12-14 00:00:00 Completed [facility] MMR 2016-12-14 00:00:00 Completed [facility] Varicella (varivax)(chicken pox) 2016-12-14 00:00:00 Completed [facility] TDAP 2016-12-14 00:00:00 Completed [facility] MMR 2016-12-14 00:00:00 Completed [facility] Varicella (varivax)(chicken pox) 2016-12-14 00:00:00 Completed [facility] TDAP 2016-12-14 00:00:00 Completed [facility] MMR 2016-12-14 00:00:00 Completed [facility] Varicella (varivax)(chicken pox) 2016-12-14 00:00:00 Completed [facility] TDAP 2016-12-14 00:00:00 Completed [facility] MMR 2016-12-14 00:00:00 Completed [facility] Varicella (varivax)(chicken pox) 2016-12-14 00:00:00 Completed [facility] TDAP 2016-12-14 00:00:00 Completed [facility] MMR 2016-12-14 00:00:00 Completed [facility] Varicella (varivax)(chicken pox) 2016-12-14 00:00:00 Completed [facility] TDAP 2016-12-14 00:00:00 Completed [facility] MMR 2016-12-14 00:00:00 Completed [facility] Varicella (varivax)(chicken pox) 2016-12-14 00:00:00 Completed [facility] TDAP 2016-12-14 00:00:00 Completed [facility] MMR 2016-12-14 00:00:00 Completed [facility] Varicella (varivax)(chicken pox) 2016-12-14 00:00:00 Completed [facility] TDAP 2016-12-14 00:00:00 Completed [facility] MMR 2016-12-14 00:00:00 Completed [facility] Varicella (varivax)(chicken pox) 2016-12-14 00:00:00 Completed [facility] TDAP 2016-12-14 00:00:00 Completed [facility] MMR 2016-12-14 00:00:00 Completed [facility] Varicella (varivax)(chicken pox) 2016-12-14 00:00:00 Completed [facility] TDAP 2016-12-14 00:00:00 Completed [facility] MMR 2016-12-14 00:00:00 Completed [facility] Varicella (varivax)(chicken pox) 2016-12-14 00:00:00 Completed [facility] TDAP 2016-12-14 00:00:00 Completed [facility] MMR 2016-12-14 00:00:00 Completed [facility] Varicella (varivax)(chicken pox) 2016-12-14 00:00:00 Completed [facility] TDAP 2016-12-14 00:00:00 Completed [facility] MMR 2016-12-14 00:00:00 Completed [facility] Varicella (varivax)(chicken pox) 2016-12-14 00:00:00 Completed [facility] TDAP 2016-12-14 00:00:00 Completed [facility] MMR 2016-12-14 00:00:00 Completed [facility] Varicella (varivax)(chicken pox) 2016-12-14 00:00:00 Completed [facility] TDAP 2016-12-14 00:00:00 Completed [facility] MMR 2016-12-14 00:00:00 Completed [facility] Varicella (varivax)(chicken pox) 2016-12-14 00:00:00 Completed [facility] TDAP 2016-12-14 00:00:00 Completed [facility] MMR 2016-12-14 00:00:00 Completed [facility] Varicella (varivax)(chicken pox) 2016-12-14 00:00:00 Completed [facility] TDAP 2016-12-14 00:00:00 Completed [facility] MMR 2016-12-14 00:00:00 Completed [facility] Varicella (varivax)(chicken pox) 2016-12-14 00:00:00 Completed [facility] TDAP 2016-12-14 00:00:00 Completed [facility] MMR 2016-12-14 00:00:00 Completed [facility] Varicella (varivax)(chicken pox) 2016-12-14 00:00:00 Completed [facility] TDAP 2016-12-14 00:00:00 Completed [facility] MMR 2016-12-14 00:00:00 Completed [facility] Varicella (varivax)(chicken pox) 2016-12-14 00:00:00 Completed [facility] TDAP 2016-12-14 00:00:00 Completed [facility] MMR 2016-12-14 00:00:00 Completed [facility] Varicella (varivax)(chicken pox) 2016-12-14 00:00:00 Completed [facility] TDAP 2016-12-14 00:00:00 Completed [facility] MMR 2016-12-14 00:00:00 Completed [facility] Varicella (varivax)(chicken pox) 2016-12-14 00:00:00 Completed [facility] TDAP 2016-12-14 00:00:00 Completed [facility] MMR 2016-12-14 00:00:00 Completed [facility] Varicella (varivax)(chicken pox) 2016-12-14 00:00:00 Completed [facility] TDAP 2016-12-14 00:00:00 Completed [facility] MMR 2016-12-14 00:00:00 Completed [facility] Varicella (varivax)(chicken pox) 2016-12-14 00:00:00 Completed [facility] TDAP 2016-12-14 00:00:00 Completed [facility] MMR 2016-12-14 00:00:00 Completed [facility] Varicella (varivax)(chicken pox) 2016-12-14 00:00:00 Completed [facility] TDAP 2016-12-14 00:00:00 Completed [facility] MMR 2016-12-14 00:00:00 Completed [facility] Varicella (varivax)(chicken pox) 2016-12-14 00:00:00 Completed [facility] TDAP 2016-12-14 00:00:00 Completed [facility] MMR 2016-12-14 00:00:00 Completed [facility] Varicella (varivax)(chicken pox) 2016-12-14 00:00:00 Completed [facility] TDAP 2016-12-14 00:00:00 Completed [facility] MMR 2016-12-14 00:00:00 Completed [facility] Varicella (varivax)(chicken pox) 2016-12-14 00:00:00 Completed [facility] TDAP 2016-12-14 00:00:00 Completed [facility] MMR 2016-12-14 00:00:00 Completed [facility] Varicella (varivax)(chicken pox) 2016-12-14 00:00:00 Completed [facility] TDAP 2016-12-14 00:00:00 Completed [facility] MMR 2016-12-14 00:00:00 Completed [facility] Varicella (varivax)(chicken pox) 2016-12-14 00:00:00 Completed [facility] TDAP 2016-12-14 00:00:00 Completed [facility] MMR 2016-12-14 00:00:00 Completed [facility] Varicella (varivax)(chicken pox) 2016-12-14 00:00:00 Completed [facility] TDAP 2016-12-14 00:00:00 Completed [facility] MMR 2016-12-14 00:00:00 Completed [facility] Varicella (varivax)(chicken pox) 2016-12-14 00:00:00 Completed [facility] TDAP 2016-12-14 00:00:00 Completed [facility] MMR 2016-12-14 00:00:00 Completed [facility] Varicella (varivax)(chicken pox) 2016-12-14 00:00:00 Completed [facility] TDAP 2016-12-14 00:00:00 Completed [facility] MMR 2016-12-14 00:00:00 Completed [facility] Varicella (varivax)(chicken pox) 2016-12-14 00:00:00 Completed [facility] TDAP 2016-12-14 00:00:00 Completed [facility] MMR 2016-12-14 00:00:00 Completed [facility] Varicella (varivax)(chicken pox) 2016-12-14 00:00:00 Completed [facility] TDAP 2016-12-14 00:00:00 Completed [facility] MMR 2016-12-14 00:00:00 Completed [facility] Varicella (varivax)(chicken pox) 2016-12-14 00:00:00 Completed [facility] TDAP 2016-12-14 00:00:00 Completed [facility] MMR 2016-12-14 00:00:00 Completed [facility] Varicella (varivax)(chicken pox) 2016-12-14 00:00:00 Completed [facility] TDAP 2016-12-14 00:00:00 Completed [facility] MMR 2016-12-14 00:00:00 Completed [facility] Varicella (varivax)(chicken pox) 2016-12-14 00:00:00 Completed [facility] TDAP 2016-12-14 00:00:00 Completed [facility] MMR 2016-12-14 00:00:00 Completed [facility] Varicella (varivax)(chicken pox) 2016-12-14 00:00:00 Completed [facility] TDAP 2016-12-14 00:00:00 Completed [facility] MMR 2016-12-14 00:00:00 Completed [facility] Varicella (varivax)(chicken pox) 2016-12-14 00:00:00 Completed [facility] TDAP 2016-12-14 00:00:00 Completed [facility] MMR 2016-12-14 00:00:00 Completed [facility] Varicella (varivax)(chicken pox) 2016-12-14 00:00:00 Completed [facility] TDAP 2016-12-14 00:00:00 Completed [facility] MMR 2016-12-14 00:00:00 Completed [facility] Varicella (varivax)(chicken pox) 2016-12-14 00:00:00 Completed [facility] TDAP 2016-12-14 00:00:00 Completed [facility] MMR 2016-12-14 00:00:00 Completed [facility] Varicella (varivax)(chicken pox) 2016-12-14 00:00:00 Completed [facility] TDAP 2016-12-14 00:00:00 Completed [facility] MMR 2016-12-14 00:00:00 Completed [facility] Varicella (varivax)(chicken pox) 2016-12-14 00:00:00 Completed [facility] TDAP 2016-12-14 00:00:00 Completed [facility] MMR 2016-12-14 00:00:00 Completed [facility] Varicella (varivax)(chicken pox) 2016-12-14 00:00:00 Completed [facility] TDAP 2016-12-14 00:00:00 Completed [facility] MMR 2016-12-14 00:00:00 Completed [facility] Varicella (varivax)(chicken pox) 2016-12-14 00:00:00 Completed [facility] TDAP 2016-12-14 00:00:00 Completed [facility] MMR 2016-12-14 00:00:00 Completed [facility] Varicella (varivax)(chicken pox) 2016-12-14 00:00:00 Completed [facility] TDAP 2016-12-14 00:00:00 Completed [facility] MMR 2016-12-14 00:00:00 Completed [facility] Varicella (varivax)(chicken pox) 2016-12-14 00:00:00 Completed [facility] TDAP 2016-12-14 00:00:00 Completed [facility] MMR 2016-12-14 00:00:00 Completed [facility] Varicella (varivax)(chicken pox) 2016-12-14 00:00:00 Completed [facility] TDAP 2016-12-14 00:00:00 Completed [facility] MMR 2016-12-14 00:00:00 Completed [facility] Varicella (varivax)(chicken pox) 2016-12-14 00:00:00 Completed [facility] TDAP 2016-12-14 00:00:00 Completed [facility] MMR 2016-12-14 00:00:00 Completed [facility] Varicella (varivax)(chicken pox) 2016-12-14 00:00:00 Completed [facility] TDAP 2016-12-14 00:00:00 Completed [facility] MMR 2016-12-14 00:00:00 Completed [facility] Varicella (varivax)(chicken pox) 2016-12-14 00:00:00 Completed [facility] TDAP 2016-12-14 00:00:00 Completed [facility] MMR 2016-12-14 00:00:00 Completed [facility] Varicella (varivax)(chicken pox) 2016-12-14 00:00:00 Completed [facility] TDAP 2016-12-14 00:00:00 Completed [facility] MMR 2016-12-14 00:00:00 Completed [facility] Varicella (varivax)(chicken pox) 2016-12-14 00:00:00 Completed [facility] TDAP 2016-12-14 00:00:00 Completed [facility] MMR 2016-12-14 00:00:00 Completed [facility] Varicella (varivax)(chicken pox) 2016-12-14 00:00:00 Completed [facility] TDAP 2016-12-14 00:00:00 Completed [facility] MMR 2016-12-14 00:00:00 Completed [facility] Varicella (varivax)(chicken pox) 2016-12-14 00:00:00 Completed [facility] TDAP 2016-12-14 00:00:00 Completed [facility] MMR 2016-12-14 00:00:00 Completed [facility] Varicella (varivax)(chicken pox) 2016-12-14 00:00:00 Completed [facility] TDAP 2016-12-14 00:00:00 Completed [facility] MMR 2016-12-14 00:00:00 Completed [facility] Varicella (varivax)(chicken pox) 2016-12-14 00:00:00 Completed [facility] TDAP 2016-12-14 00:00:00 Completed [facility] MMR 2016-12-14 00:00:00 Completed [facility] Varicella (varivax)(chicken pox) 2016-12-14 00:00:00 Completed [facility] TDAP 2016-12-14 00:00:00 Completed [facility] MMR 2016-12-14 00:00:00 Completed [facility] Varicella (varivax)(chicken pox) 2016-12-14 00:00:00 Completed [facility] Hep B, Adol or Pedi Dosage 2008-08-27 00:00:00 Completed [facility] Hep B, Adol or Pedi Dosage 2008-08-27 00:00:00 Completed [facility] Hep B, Adol or Pedi Dosage 2008-08-27 00:00:00 Completed [facility] Hep B, Adol or Pedi Dosage 2008-08-27 00:00:00 Completed [facility] Hep B, Adol or Pedi Dosage 2008-08-27 00:00:00 Completed [facility] Hep B, Adol or Pedi Dosage 2008-08-27 00:00:00 Completed [facility] Hep B, Adol or Pedi Dosage 2008-08-27 00:00:00 Completed [facility] Hep B, Adol or Pedi Dosage 2008-08-27 00:00:00 Completed [facility] Hep B, Adol or Pedi Dosage 2008-08-27 00:00:00 Completed [facility] Hep B, Adol or Pedi Dosage 2008-08-27 00:00:00 Completed [facility] Hep B, Adol or Pedi Dosage 2008-08-27 00:00:00 Completed [facility] Hep B, Adol or Pedi Dosage 2008-08-27 00:00:00 Completed [facility] Hep B, Adol or Pedi Dosage 2008-08-27 00:00:00 Completed [facility] Hep B, Adol or Pedi Dosage 2008-08-27 00:00:00 Completed [facility] Hep B, Adol or Pedi Dosage 2008-08-27 00:00:00 Completed [facility] Hep B, Adol or Pedi Dosage 2008-08-27 00:00:00 Completed [facility] Hep B, Adol or Pedi Dosage 2008-08-27 00:00:00 Completed [facility] Hep B, Adol or Pedi Dosage 2008-08-27 00:00:00 Completed [facility] Hep B, Adol or Pedi Dosage 2008-08-27 00:00:00 Completed [facility] Hep B, Adol or Pedi Dosage 2008-08-27 00:00:00 Completed [facility] Hep B, Adol or Pedi Dosage 2008-08-27 00:00:00 Completed [facility] Hep B, Adol or Pedi Dosage 2008-08-27 00:00:00 Completed [facility] Hep B, Adol or Pedi Dosage 2008-08-27 00:00:00 Completed [facility] Hep B, Adol or Pedi Dosage 2008-08-27 00:00:00 Completed [facility] Hep B, Adol or Pedi Dosage 2008-08-27 00:00:00 Completed [facility] Hep B, Adol or Pedi Dosage 2008-08-27 00:00:00 Completed [facility] Hep B, Adol or Pedi Dosage 2008-08-27 00:00:00 Completed [facility] Hep B, Adol or Pedi Dosage 2008-08-27 00:00:00 Completed [facility] Hep B, Adol or Pedi Dosage 2008-08-27 00:00:00 Completed [facility] Hep B, Adol or Pedi Dosage 2008-08-27 00:00:00 Completed [facility] Hep B, Adol or Pedi Dosage 2008-08-27 00:00:00 Completed [facility] Hep B, Adol or Pedi Dosage 2008-08-27 00:00:00 Completed [facility] Hep B, Adol or Pedi Dosage 2008-08-27 00:00:00 Completed [facility] Hep B, Adol or Pedi Dosage 2008-08-27 00:00:00 Completed [facility] Hep B, Adol or Pedi Dosage 2008-08-27 00:00:00 Completed [facility] Hep B, Adol or Pedi Dosage 2008-08-27 00:00:00 Completed [facility] Hep B, Adol or Pedi Dosage 2008-08-27 00:00:00 Completed [facility] Hep B, Adol or Pedi Dosage 2008-08-27 00:00:00 Completed [facility] Hep B, Adol or Pedi Dosage 2008-08-27 00:00:00 Completed [facility] Hep B, Adol or Pedi Dosage 2008-08-27 00:00:00 Completed [facility] Hep B, Adol or Pedi Dosage 2008-08-27 00:00:00 Completed [facility] Hep B, Adol or Pedi Dosage 2008-08-27 00:00:00 Completed [facility] Hep B, Adol or Pedi Dosage 2008-08-27 00:00:00 Completed [facility] Hep B, Adol or Pedi Dosage 2008-08-27 00:00:00 Completed [facility] Hep B, Adol or Pedi Dosage 2008-08-27 00:00:00 Completed [facility] Hep B, Adol or Pedi Dosage 2008-08-27 00:00:00 Completed [facility] Hep B, Adol or Pedi Dosage 2008-08-27 00:00:00 Completed [facility] Hep B, Adol or Pedi Dosage 2008-08-27 00:00:00 Completed [facility] Hep B, Adol or Pedi Dosage 2008-08-27 00:00:00 Completed [facility] Hep B, Adol or Pedi Dosage 2008-08-27 00:00:00 Completed [facility] Hep B, Adol or Pedi Dosage 2008-08-27 00:00:00 Completed [facility] Hep B, Adol or Pedi Dosage 2008-08-27 00:00:00 Completed [facility] Hep B, Adol or Pedi Dosage 2008-08-27 00:00:00 Completed [facility] Hep B, Adol or Pedi Dosage 2008-08-27 00:00:00 Completed [facility] Hep B, Adol or Pedi Dosage 2008-08-27 00:00:00 Completed [facility] Hep B, Adol or Pedi Dosage 2008-08-27 00:00:00 Completed [facility] Hep B, Adol or Pedi Dosage 2008-08-27 00:00:00 Completed [facility] Hep B, Adol or Pedi Dosage 2008-08-27 00:00:00 Completed [facility] Hep B, Adol or Pedi Dosage 2008-08-27 00:00:00 Completed [facility] Hep B, Adol or Pedi Dosage 2008-08-27 00:00:00 Completed [facility] Hep B, Adol or Pedi Dosage 2008-08-27 00:00:00 Completed [facility] Hep B, Adol or Pedi Dosage 2008-08-27 00:00:00 Completed [facility] Hep B, Adol or Pedi Dosage 2008-08-27 00:00:00 Completed [facility] Hep B, Adol or Pedi Dosage 2008-08-27 00:00:00 Completed [facility] Hep B, Adol or Pedi Dosage 2008-08-27 00:00:00 Completed [facility] HEPATITIS A 2008-07-22 00:00:00 Completed [facility] Hep B, Adol or Pedi Dosage 2008-07-22 00:00:00 Completed [facility] Td 2008-07-22 00:00:00 Completed [facility] HEPATITIS A 2008-07-22 00:00:00 Completed [facility] Hep B, Adol or Pedi Dosage 2008-07-22 00:00:00 Completed [facility] Td 2008-07-22 00:00:00 Completed [facility] HEPATITIS A 2008-07-22 00:00:00 Completed [facility] Hep B, Adol or Pedi Dosage 2008-07-22 00:00:00 Completed [facility] Td 2008-07-22 00:00:00 Completed [facility] HEPATITIS A 2008-07-22 00:00:00 Completed [facility] Hep B, Adol or Pedi Dosage 2008-07-22 00:00:00 Completed [facility] Td 2008-07-22 00:00:00 Completed [facility] HEPATITIS A 2008-07-22 00:00:00 Completed [facility] Hep B, Adol or Pedi Dosage 2008-07-22 00:00:00 Completed [facility] Td 2008-07-22 00:00:00 Completed [facility] HEPATITIS A 2008-07-22 00:00:00 Completed [facility] Hep B, Adol or Pedi Dosage 2008-07-22 00:00:00 Completed [facility] Td 2008-07-22 00:00:00 Completed [facility] HEPATITIS A 2008-07-22 00:00:00 Completed [facility] Hep B, Adol or Pedi Dosage 2008-07-22 00:00:00 Completed [facility] Td 2008-07-22 00:00:00 Completed [facility] HEPATITIS A 2008-07-22 00:00:00 Completed [facility] Hep B, Adol or Pedi Dosage 2008-07-22 00:00:00 Completed [facility] Td 2008-07-22 00:00:00 Completed [facility] HEPATITIS A 2008-07-22 00:00:00 Completed [facility] Hep B, Adol or Pedi Dosage 2008-07-22 00:00:00 Completed [facility] Td 2008-07-22 00:00:00 Completed [facility] HEPATITIS A 2008-07-22 00:00:00 Completed [facility] Hep B, Adol or Pedi Dosage 2008-07-22 00:00:00 Completed [facility] Td 2008-07-22 00:00:00 Completed [facility] HEPATITIS A 2008-07-22 00:00:00 Completed [facility] Hep B, Adol or Pedi Dosage 2008-07-22 00:00:00 Completed [facility] Td 2008-07-22 00:00:00 Completed [facility] HEPATITIS A 2008-07-22 00:00:00 Completed [facility] Hep B, Adol or Pedi Dosage 2008-07-22 00:00:00 Completed [facility] Td 2008-07-22 00:00:00 Completed [facility] HEPATITIS A 2008-07-22 00:00:00 Completed [facility] Hep B, Adol or Pedi Dosage 2008-07-22 00:00:00 Completed [facility] Td 2008-07-22 00:00:00 Completed [facility] HEPATITIS A 2008-07-22 00:00:00 Completed [facility] Hep B, Adol or Pedi Dosage 2008-07-22 00:00:00 Completed [facility] Td 2008-07-22 00:00:00 Completed [facility] HEPATITIS A 2008-07-22 00:00:00 Completed [facility] Hep B, Adol or Pedi Dosage 2008-07-22 00:00:00 Completed [facility] Td 2008-07-22 00:00:00 Completed [facility] HEPATITIS A 2008-07-22 00:00:00 Completed [facility] Hep B, Adol or Pedi Dosage 2008-07-22 00:00:00 Completed [facility] Td 2008-07-22 00:00:00 Completed [facility] HEPATITIS A 2008-07-22 00:00:00 Completed [facility] Hep B, Adol or Pedi Dosage 2008-07-22 00:00:00 Completed [facility] Td 2008-07-22 00:00:00 Completed [facility] HEPATITIS A 2008-07-22 00:00:00 Completed [facility] Hep B, Adol or Pedi Dosage 2008-07-22 00:00:00 Completed [facility] Td 2008-07-22 00:00:00 Completed [facility] HEPATITIS A 2008-07-22 00:00:00 Completed [facility] Hep B, Adol or Pedi Dosage 2008-07-22 00:00:00 Completed [facility] Td 2008-07-22 00:00:00 Completed [facility] HEPATITIS A 2008-07-22 00:00:00 Completed [facility] Hep B, Adol or Pedi Dosage 2008-07-22 00:00:00 Completed [facility] Td 2008-07-22 00:00:00 Completed [facility] HEPATITIS A 2008-07-22 00:00:00 Completed [facility] Hep B, Adol or Pedi Dosage 2008-07-22 00:00:00 Completed [facility] Td 2008-07-22 00:00:00 Completed [facility] HEPATITIS A 2008-07-22 00:00:00 Completed [facility] Hep B, Adol or Pedi Dosage 2008-07-22 00:00:00 Completed [facility] Td 2008-07-22 00:00:00 Completed [facility] HEPATITIS A 2008-07-22 00:00:00 Completed [facility] Hep B, Adol or Pedi Dosage 2008-07-22 00:00:00 Completed [facility] Td 2008-07-22 00:00:00 Completed [facility] HEPATITIS A 2008-07-22 00:00:00 Completed [facility] Hep B, Adol or Pedi Dosage 2008-07-22 00:00:00 Completed [facility] Td 2008-07-22 00:00:00 Completed [facility] HEPATITIS A 2008-07-22 00:00:00 Completed [facility] Hep B, Adol or Pedi Dosage 2008-07-22 00:00:00 Completed [facility] Td 2008-07-22 00:00:00 Completed [facility] HEPATITIS A 2008-07-22 00:00:00 Completed [facility] Hep B, Adol or Pedi Dosage 2008-07-22 00:00:00 Completed [facility] Td 2008-07-22 00:00:00 Completed [facility] HEPATITIS A 2008-07-22 00:00:00 Completed [facility] Hep B, Adol or Pedi Dosage 2008-07-22 00:00:00 Completed [facility] TD, NOS 2008-07-22 00:00:00 Completed [facility] HEPATITIS A 2008-07-22 00:00:00 Completed [facility] Hep B, Adol or Pedi Dosage 2008-07-22 00:00:00 Completed [facility] TD, NOS 2008-07-22 00:00:00 Completed [facility] HEPATITIS A 2008-07-22 00:00:00 Completed [facility] Hep B, Adol or Pedi Dosage 2008-07-22 00:00:00 Completed [facility] TD, NOS 2008-07-22 00:00:00 Completed [facility] HEPATITIS A 2008-07-22 00:00:00 Completed [facility] Hep B, Adol or Pedi Dosage 2008-07-22 00:00:00 Completed [facility] TD, NOS 2008-07-22 00:00:00 Completed [facility] HEPATITIS A 2008-07-22 00:00:00 Completed [facility] Hep B, Adol or Pedi Dosage 2008-07-22 00:00:00 Completed [facility] TD, NOS 2008-07-22 00:00:00 Completed [facility] HEPATITIS A 2008-07-22 00:00:00 Completed [facility] Hep B, Adol or Pedi Dosage 2008-07-22 00:00:00 Completed [facility] TD, NOS 2008-07-22 00:00:00 Completed [facility] HEPATITIS A 2008-07-22 00:00:00 Completed [facility] Hep B, Adol or Pedi Dosage 2008-07-22 00:00:00 Completed [facility] TD, NOS 2008-07-22 00:00:00 Completed [facility] HEPATITIS A 2008-07-22 00:00:00 Completed [facility] Hep B, Adol or Pedi Dosage 2008-07-22 00:00:00 Completed [facility] TD, NOS 2008-07-22 00:00:00 Completed [facility] HEPATITIS A 2008-07-22 00:00:00 Completed [facility] Hep B, Adol or Pedi Dosage 2008-07-22 00:00:00 Completed [facility] TD, NOS 2008-07-22 00:00:00 Completed [facility] HEPATITIS A 2008-07-22 00:00:00 Completed [facility] Hep B, Adol or Pedi Dosage 2008-07-22 00:00:00 Completed [facility] TD, NOS 2008-07-22 00:00:00 Completed [facility] HEPATITIS A 2008-07-22 00:00:00 Completed [facility] Hep B, Adol or Pedi Dosage 2008-07-22 00:00:00 Completed [facility] TD, NOS 2008-07-22 00:00:00 Completed [facility] HEPATITIS A 2008-07-22 00:00:00 Completed [facility] Hep B, Adol or Pedi Dosage 2008-07-22 00:00:00 Completed [facility] TD, NOS 2008-07-22 00:00:00 Completed [facility] HEPATITIS A 2008-07-22 00:00:00 Completed [facility] Hep B, Adol or Pedi Dosage 2008-07-22 00:00:00 Completed [facility] TD, NOS 2008-07-22 00:00:00 Completed [facility] HEPATITIS A 2008-07-22 00:00:00 Completed [facility] Hep B, Adol or Pedi Dosage 2008-07-22 00:00:00 Completed [facility] TD, NOS 2008-07-22 00:00:00 Completed [facility] HEPATITIS A 2008-07-22 00:00:00 Completed [facility] Hep B, Adol or Pedi Dosage 2008-07-22 00:00:00 Completed [facility] TD, NOS 2008-07-22 00:00:00 Completed [facility] HEPATITIS A 2008-07-22 00:00:00 Completed [facility] Hep B, Adol or Pedi Dosage 2008-07-22 00:00:00 Completed [facility] TD, NOS 2008-07-22 00:00:00 Completed [facility] HEPATITIS A 2008-07-22 00:00:00 Completed [facility] Hep B, Adol or Pedi Dosage 2008-07-22 00:00:00 Completed [facility] TD, NOS 2008-07-22 00:00:00 Completed [facility] HEPATITIS A 2008-07-22 00:00:00 Completed [facility] Hep B, Adol or Pedi Dosage 2008-07-22 00:00:00 Completed [facility] TD, NOS 2008-07-22 00:00:00 Completed [facility] HEPATITIS A 2008-07-22 00:00:00 Completed [facility] Hep B, Adol or Pedi Dosage 2008-07-22 00:00:00 Completed [facility] TD, NOS 2008-07-22 00:00:00 Completed [facility] HEPATITIS A 2008-07-22 00:00:00 Completed [facility] Hep B, Adol or Pedi Dosage 2008-07-22 00:00:00 Completed [facility] TD, NOS 2008-07-22 00:00:00 Completed [facility] HEPATITIS A 2008-07-22 00:00:00 Completed [facility] Hep B, Adol or Pedi Dosage 2008-07-22 00:00:00 Completed [facility] TD, NOS 2008-07-22 00:00:00 Completed [facility] HEPATITIS A 2008-07-22 00:00:00 Completed [facility] Hep B, Adol or Pedi Dosage 2008-07-22 00:00:00 Completed [facility] TD, NOS 2008-07-22 00:00:00 Completed [facility] HEPATITIS A 2008-07-22 00:00:00 Completed [facility] Hep B, Adol or Pedi Dosage 2008-07-22 00:00:00 Completed [facility] TD, NOS 2008-07-22 00:00:00 Completed [facility] HEPATITIS A 2008-07-22 00:00:00 Completed [facility] Hep B, Adol or Pedi Dosage 2008-07-22 00:00:00 Completed [facility] TD, NOS 2008-07-22 00:00:00 Completed [facility] HEPATITIS A 2008-07-22 00:00:00 Completed [facility] Hep B, Adol or Pedi Dosage 2008-07-22 00:00:00 Completed [facility] TD, NOS 2008-07-22 00:00:00 Completed [facility] HEPATITIS A 2008-07-22 00:00:00 Completed [facility] Hep B, Adol or Pedi Dosage 2008-07-22 00:00:00 Completed [facility] TD, NOS 2008-07-22 00:00:00 Completed [facility] HEPATITIS A 2008-07-22 00:00:00 Completed [facility] Hep B, Adol or Pedi Dosage 2008-07-22 00:00:00 Completed [facility] TD, NOS 2008-07-22 00:00:00 Completed [facility] HEPATITIS A 2008-07-22 00:00:00 Completed [facility] Hep B, Adol or Pedi Dosage 2008-07-22 00:00:00 Completed [facility] TD, NOS 2008-07-22 00:00:00 Completed [facility] HEPATITIS A 2008-07-22 00:00:00 Completed [facility] Hep B, Adol or Pedi Dosage 2008-07-22 00:00:00 Completed [facility] TD, NOS 2008-07-22 00:00:00 Completed [facility] HEPATITIS A 2008-07-22 00:00:00 Completed [facility] Hep B, Adol or Pedi Dosage 2008-07-22 00:00:00 Completed [facility] TD, NOS 2008-07-22 00:00:00 Completed [facility] HEPATITIS A 2008-07-22 00:00:00 Completed [facility] Hep B, Adol or Pedi Dosage 2008-07-22 00:00:00 Completed [facility] TD, NOS 2008-07-22 00:00:00 Completed [facility] HEPATITIS A 2008-07-22 00:00:00 Completed [facility] Hep B, Adol or Pedi Dosage 2008-07-22 00:00:00 Completed [facility] TD, NOS 2008-07-22 00:00:00 Completed [facility] HEPATITIS A 2008-07-22 00:00:00 Completed [facility] Hep B, Adol or Pedi Dosage 2008-07-22 00:00:00 Completed [facility] TD, NOS 2008-07-22 00:00:00 Completed [facility] HEPATITIS A 2008-07-22 00:00:00 Completed [facility] Hep B, Adol or Pedi Dosage 2008-07-22 00:00:00 Completed [facility] TD, NOS 2008-07-22 00:00:00 Completed [facility] HEPATITIS A 2008-07-22 00:00:00 Completed [facility] Hep B, Adol or Pedi Dosage 2008-07-22 00:00:00 Completed [facility] TD, NOS 2008-07-22 00:00:00 Completed [facility] HEPATITIS A 2008-07-22 00:00:00 Completed [facility] Hep B, Adol or Pedi Dosage 2008-07-22 00:00:00 Completed [facility] TD, NOS 2008-07-22 00:00:00 Completed [facility] HEPATITIS A 2008-07-22 00:00:00 Completed [facility] Hep B, Adol or Pedi Dosage 2008-07-22 00:00:00 Completed [facility] TD, NOS 2008-07-22 00:00:00 Completed [facility] HEPATITIS A 2008-07-22 00:00:00 Completed [facility] Hep B, Adol or Pedi Dosage 2008-07-22 00:00:00 Completed [facility] TD, NOS 2008-07-22 00:00:00 Completed [facility] HEPATITIS A 2008-07-22 00:00:00 Completed [facility] Hep B, Adol or Pedi Dosage 2008-07-22 00:00:00 Completed [facility] TD, NOS 2008-07-22 00:00:00 Completed [facility] HEPATITIS A 2005-09-21 00:00:00 Completed [facility] HEPATITIS A 2005-09-21 00:00:00 Completed [facility] HEPATITIS A 2005-09-21 00:00:00 Completed [facility] HEPATITIS A 2005-09-21 00:00:00 Completed [facility] HEPATITIS A 2005-09-21 00:00:00 Completed [facility] HEPATITIS A 2005-09-21 00:00:00 Completed [facility] HEPATITIS A 2005-09-21 00:00:00 Completed [facility] HEPATITIS A 2005-09-21 00:00:00 Completed [facility] HEPATITIS A 2005-09-21 00:00:00 Completed [facility] HEPATITIS A 2005-09-21 00:00:00 Completed [facility] HEPATITIS A 2005-09-21 00:00:00 Completed [facility] HEPATITIS A 2005-09-21 00:00:00 Completed [facility] HEPATITIS A 2005-09-21 00:00:00 Completed [facility] HEPATITIS A 2005-09-21 00:00:00 Completed [facility] HEPATITIS A 2005-09-21 00:00:00 Completed [facility] HEPATITIS A 2005-09-21 00:00:00 Completed [facility] HEPATITIS A 2005-09-21 00:00:00 Completed [facility] HEPATITIS A 2005-09-21 00:00:00 Completed [facility] HEPATITIS A 2005-09-21 00:00:00 Completed [facility] HEPATITIS A 2005-09-21 00:00:00 Completed [facility] HEPATITIS A 2005-09-21 00:00:00 Completed [facility] HEPATITIS A 2005-09-21 00:00:00 Completed [facility] HEPATITIS A 2005-09-21 00:00:00 Completed [facility] HEPATITIS A 2005-09-21 00:00:00 Completed [facility] HEPATITIS A 2005-09-21 00:00:00 Completed [facility] HEPATITIS A 2005-09-21 00:00:00 Completed [facility] HEPATITIS A 2005-09-21 00:00:00 Completed [facility] HEPATITIS A 2005-09-21 00:00:00 Completed [facility] HEPATITIS A 2005-09-21 00:00:00 Completed [facility] HEPATITIS A 2005-09-21 00:00:00 Completed [facility] HEPATITIS A 2005-09-21 00:00:00 Completed [facility] HEPATITIS A 2005-09-21 00:00:00 Completed [facility] HEPATITIS A 2005-09-21 00:00:00 Completed [facility] HEPATITIS A 2005-09-21 00:00:00 Completed [facility] HEPATITIS A 2005-09-21 00:00:00 Completed [facility] HEPATITIS A 2005-09-21 00:00:00 Completed [facility] HEPATITIS A 2005-09-21 00:00:00 Completed [facility] HEPATITIS A 2005-09-21 00:00:00 Completed [facility] HEPATITIS A 2005-09-21 00:00:00 Completed [facility] HEPATITIS A 2005-09-21 00:00:00 Completed [facility] HEPATITIS A 2005-09-21 00:00:00 Completed [facility] HEPATITIS A 2005-09-21 00:00:00 Completed [facility] HEPATITIS A 2005-09-21 00:00:00 Completed [facility] HEPATITIS A 2005-09-21 00:00:00 Completed [facility] HEPATITIS A 2005-09-21 00:00:00 Completed [facility] HEPATITIS A 2005-09-21 00:00:00 Completed [facility] HEPATITIS A 2005-09-21 00:00:00 Completed [facility] HEPATITIS A 2005-09-21 00:00:00 Completed [facility] HEPATITIS A 2005-09-21 00:00:00 Completed [facility] HEPATITIS A 2005-09-21 00:00:00 Completed [facility] HEPATITIS A 2005-09-21 00:00:00 Completed [facility] HEPATITIS A 2005-09-21 00:00:00 Completed [facility] HEPATITIS A 2005-09-21 00:00:00 Completed [facility] HEPATITIS A 2005-09-21 00:00:00 Completed [facility] HEPATITIS A 2005-09-21 00:00:00 Completed [facility] HEPATITIS A 2005-09-21 00:00:00 Completed [facility] HEPATITIS A 2005-09-21 00:00:00 Completed [facility] HEPATITIS A 2005-09-21 00:00:00 Completed [facility] HEPATITIS A 2005-09-21 00:00:00 Completed [facility] HEPATITIS A 2005-09-21 00:00:00 Completed [facility] HEPATITIS A 2005-09-21 00:00:00 Completed [facility] HEPATITIS A 2005-09-21 00:00:00 Completed [facility] HEPATITIS A 2005-09-21 00:00:00 Completed [facility] HEPATITIS A 2005-09-21 00:00:00 Completed [facility] HEPATITIS A 2005-09-21 00:00:00 Completed [facility] Hep B, Adol or Pedi Dosage Unknown Completed [facility] Hep B, Adol or Pedi Dosage Unknown Completed [facility] TD, NOS Unknown Completed [facility] Hep B, Adol or Pedi Dosage Unknown Completed [facility] Influenza Virus Vaccine - Whole Unknown Completed [facility] Pneumococcal Polysaccharide, PPSV23 (PNEUMOVAX) Unknown Completed [facility] TD, NOS Unknown Completed [facility] Influenza Virus Vaccine Unknown Completed [facility] Influenza Virus Vaccine Quad .5 mL IM 6+ MO (FLUZONE/FLULAVAL/F LUARIX) Unknown Completed [facility] SARS-COV-2 COVID-19 MODERNA 12+ YRS VACCINE Unknown Completed [facility] SARS-COV-2 COVID-19 MODERNA 12+ YRS VACCINE Unknown Completed [facility] Influenza Virus Vaccine Unknown Completed [facility] Influenza Virus Vaccine Quad IM, Preserv and ABX Free 6 MO-64 YRS (FLUCELVAX) Unknown Completed [facility] TDAP Unknown Completed [facility] MMR Unknown Completed [facility] Varicella (varivax)(chicken pox) Unknown Completed [facility] Influenza Virus Vaccine Unknown Completed [facility] HEPATITIS A Unknown Completed [facility] HEPATITIS A Unknown Completed [facility] Hep B, Adol or Pedi Dosage Unknown Completed [facility] Hep B, Adol or Pedi Dosage Unknown Completed [facility] TD, NOS Unknown Completed [facility] Hep B, Adol or Pedi Dosage Unknown Completed [facility] Influenza Virus Vaccine - Whole Unknown Completed [facility] Pneumococcal Polysaccharide, PPSV23 (PNEUMOVAX) Unknown Completed [facility] TD, NOS Unknown Completed [facility] Influenza Virus Vaccine Unknown Completed [facility] Influenza Virus Vaccine Quad .5 mL IM 6+ MO (FLUZONE/FLULAVAL/F LUARIX) Unknown Completed [facility] SARS-COV-2 COVID-19 MODERNA 12+ YRS VACCINE Unknown Completed [facility] SARS-COV-2 COVID-19 MODERNA 12+ YRS VACCINE Unknown Completed [facility] Influenza Virus Vaccine Unknown Completed [facility] Influenza Virus Vaccine Quad IM, Preserv and ABX Free 6 MO-64 YRS (FLUCELVAX) Unknown Completed [facility] TDAP Unknown Completed [facility] MMR Unknown Completed [facility] Varicella (varivax)(chicken pox) Unknown Completed [facility] Influenza Virus Vaccine Unknown Completed [facility] HEPATITIS A Unknown Completed [facility] HEPATITIS A Unknown Completed [facility] Hep B, Adol or Pedi Dosage Unknown Completed [facility] Hep B, Adol or Pedi Dosage Unknown Completed [facility] TD, NOS Unknown Completed [facility] Hep B, Adol or Pedi Dosage Unknown Completed [facility] Influenza Virus Vaccine - Whole Unknown Completed [facility] Pneumococcal Polysaccharide, PPSV23 (PNEUMOVAX) Unknown Completed [facility] TD, NOS Unknown Completed [facility] Influenza Virus Vaccine Unknown Completed [facility] Influenza Virus Vaccine Quad .5 mL IM 6+ MO (FLUZONE/FLULAVAL/F LUARIX) Unknown Completed [facility] SARS-COV-2 COVID-19 MODERNA 12+ YRS VACCINE Unknown Completed [facility] SARS-COV-2 COVID-19 MODERNA 12+ YRS VACCINE Unknown Completed [facility] Influenza Virus Vaccine Unknown Completed [facility] Influenza Virus Vaccine Quad IM, Preserv and ABX Free 6 MO-64 YRS (FLUCELVAX) Unknown Completed [facility] TDAP Unknown Completed [facility] MMR Unknown Completed [facility] Varicella (varivax)(chicken pox) Unknown Completed [facility] Influenza Virus Vaccine Unknown Completed [facility] HEPATITIS A Unknown Completed [facility] HEPATITIS A Unknown Completed [facility] Hep B, Adol or Pedi Dosage Unknown Completed [facility] Hep B, Adol or Pedi Dosage Unknown Completed [facility] TD, NOS Unknown Completed [facility] Hep B, Adol or Pedi Dosage Unknown Completed [facility] Influenza Virus Vaccine - Whole Unknown Completed [facility] Pneumococcal Polysaccharide, PPSV23 (PNEUMOVAX) Unknown Completed [facility] TD, NOS Unknown Completed [facility] Influenza Virus Vaccine Unknown Completed [facility] Influenza Virus Vaccine Quad .5 mL IM 6+ MO (FLUZONE/FLULAVAL/F LUARIX) Unknown Completed [facility] SARS-COV-2 COVID-19 MODERNA 12+ YRS VACCINE Unknown Completed [facility] SARS-COV-2 COVID-19 MODERNA 12+ YRS VACCINE Unknown Completed [facility] Influenza Virus Vaccine Unknown Completed [facility] Influenza Virus Vaccine Quad IM, Preserv and ABX Free 6 MO-64 YRS (FLUCELVAX) Unknown Completed [facility] TDAP Unknown Completed [facility] MMR Unknown Completed [facility] Varicella (varivax)(chicken pox) Unknown Completed [facility] Influenza Virus Vaccine Unknown Completed [facility] HEPATITIS A Unknown Completed [facility] HEPATITIS A Unknown Completed [facility] Hep B, Adol or Pedi Dosage Unknown Completed [facility] Hep B, Adol or Pedi Dosage Unknown Completed [facility] TD, NOS Unknown Completed [facility] Hep B, Adol or Pedi Dosage Unknown Completed [facility] Influenza Virus Vaccine - Whole Unknown Completed [facility] Pneumococcal Polysaccharide, PPSV23 (PNEUMOVAX) Unknown Completed [facility] TD, NOS Unknown Completed [facility] Influenza Virus Vaccine Unknown Completed [facility] Influenza Virus Vaccine Quad .5 mL IM 6+ MO (FLUZONE/FLULAVAL/F LUARIX) Unknown Completed [facility] SARS-COV-2 COVID-19 MODERNA 12+ YRS VACCINE Unknown Completed [facility] SARS-COV-2 COVID-19 MODERNA 12+ YRS VACCINE Unknown Completed [facility] Influenza Virus Vaccine Unknown Completed [facility] Influenza Virus Vaccine Quad IM, Preserv and ABX Free 6 MO-64 YRS (FLUCELVAX) Unknown Completed [facility] TDAP Unknown Completed [facility] MMR Unknown Completed [facility] Varicella (varivax)(chicken pox) Unknown Completed [facility] Influenza Virus Vaccine Unknown Completed [facility] HEPATITIS A Unknown Completed [facility] HEPATITIS A Unknown Completed [facility] Hep B, Adol or Pedi Dosage Unknown Completed [facility] Hep B, Adol or Pedi Dosage Unknown Completed [facility] TD, NOS Unknown Completed [facility] Hep B, Adol or Pedi Dosage Unknown Completed [facility] Influenza Virus Vaccine - Whole Unknown Completed [facility] Pneumococcal Polysaccharide, PPSV23 (PNEUMOVAX) Unknown Completed [facility] TD, NOS Unknown Completed [facility] Influenza Virus Vaccine Unknown Completed [facility] Influenza Virus Vaccine Quad .5 mL IM 6+ MO (FLUZONE/FLULAVAL/F LUARIX) Unknown Completed [facility] SARS-COV-2 COVID-19 MODERNA 12+ YRS VACCINE Unknown Completed [facility] SARS-COV-2 COVID-19 MODERNA 12+ YRS VACCINE Unknown Completed [facility] Influenza Virus Vaccine Unknown Completed [facility] Influenza Virus Vaccine Quad IM, Preserv and ABX Free 6 MO-64 YRS (FLUCELVAX) Unknown Completed [facility] TDAP Unknown Completed [facility] MMR Unknown Completed [facility] Varicella (varivax)(chicken pox) Unknown Completed [facility] Influenza Virus Vaccine Unknown Completed [facility] HEPATITIS A Unknown Completed [facility] HEPATITIS A Unknown Completed [facility] Hep B, Adol or Pedi Dosage Unknown Completed [facility] Hep B, Adol or Pedi Dosage Unknown Completed [facility] TD, NOS Unknown Completed [facility] Hep B, Adol or Pedi Dosage Unknown Completed [facility] Influenza Virus Vaccine - Whole Unknown Completed [facility] Pneumococcal Polysaccharide, PPSV23 (PNEUMOVAX) Unknown Completed [facility] TD, NOS Unknown Completed [facility] Influenza Virus Vaccine Unknown Completed [facility] Influenza Virus Vaccine Quad .5 mL IM 6+ MO (FLUZONE/FLULAVAL/F LUARIX) Unknown Completed [facility] SARS-COV-2 COVID-19 MODERNA 12+ YRS VACCINE Unknown Completed [facility] SARS-COV-2 COVID-19 MODERNA 12+ YRS VACCINE Unknown Completed [facility] Influenza Virus Vaccine Unknown Completed [facility] Influenza Virus Vaccine Quad IM, Preserv and ABX Free 6 MO-64 YRS (FLUCELVAX) Unknown Completed [facility] TDAP Unknown Completed [facility] MMR Unknown Completed [facility] Varicella (varivax)(chicken pox) Unknown Completed [facility] Influenza Virus Vaccine Unknown Completed [facility] HEPATITIS A Unknown Completed [facility] HEPATITIS A Unknown Completed [facility] Hep B, Adol or Pedi Dosage Unknown Completed [facility] Hep B, Adol or Pedi Dosage Unknown Completed [facility] TD, NOS Unknown Completed [facility] Hep B, Adol or Pedi Dosage Unknown Completed [facility] Influenza Virus Vaccine - Whole Unknown Completed [facility] Pneumococcal Polysaccharide, PPSV23 (PNEUMOVAX) Unknown Completed [facility] TD, NOS Unknown Completed [facility] Influenza Virus Vaccine Unknown Completed [facility] Influenza Virus Vaccine Quad .5 mL IM 6+ MO (FLUZONE/FLULAVAL/F LUARIX) Unknown Completed [facility] SARS-COV-2 COVID-19 MODERNA 12+ YRS VACCINE Unknown Completed [facility] SARS-COV-2 COVID-19 MODERNA 12+ YRS VACCINE Unknown Completed [facility] Influenza Virus Vaccine Unknown Completed [facility] Influenza Virus Vaccine Quad IM, Preserv and ABX Free 6 MO-64 YRS (FLUCELVAX) Unknown Completed [facility] TDAP Unknown Completed [facility] MMR Unknown Completed [facility] Varicella (varivax)(chicken pox) Unknown Completed [facility] Influenza Virus Vaccine Unknown Completed [facility] HEPATITIS A Unknown Completed [facility] HEPATITIS A Unknown Completed [facility] Hep B, Adol or Pedi Dosage Unknown Completed [facility] Hep B, Adol or Pedi Dosage Unknown Completed [facility] TD, NOS Unknown Completed [facility] Hep B, Adol or Pedi Dosage Unknown Completed [facility] Influenza Virus Vaccine - Whole Unknown Completed [facility] Pneumococcal Polysaccharide, PPSV23 (PNEUMOVAX) Unknown Completed [facility] TD, NOS Unknown Completed [facility] Influenza Virus Vaccine Unknown Completed [facility] Influenza Virus Vaccine Quad .5 mL IM 6+ MO (FLUZONE/FLULAVAL/F LUARIX) Unknown Completed [facility] SARS-COV-2 COVID-19 MODERNA 12+ YRS VACCINE Unknown Completed [facility] SARS-COV-2 COVID-19 MODERNA 12+ YRS VACCINE Unknown Completed [facility] Influenza Virus Vaccine Unknown Completed [facility] Influenza Virus Vaccine Quad IM, Preserv and ABX Free 6 MO-64 YRS (FLUCELVAX) Unknown Completed [facility] TDAP Unknown Completed [facility] MMR Unknown Completed [facility] Varicella (varivax)(chicken pox) Unknown Completed [facility] Influenza Virus Vaccine Unknown Completed [facility] HEPATITIS A Unknown Completed [facility] HEPATITIS A Unknown Completed [facility] Hep B, Adol or Pedi Dosage Unknown Completed [facility] Hep B, Adol or Pedi Dosage Unknown Completed [facility] TD, NOS Unknown Completed [facility] Hep B, Adol or Pedi Dosage Unknown Completed [facility] Influenza Virus Vaccine - Whole Unknown Completed [facility] Pneumococcal Polysaccharide, PPSV23 (PNEUMOVAX) Unknown Completed [facility] TD, NOS Unknown Completed [facility] Influenza Virus Vaccine Unknown Completed [facility] Influenza Virus Vaccine Quad .5 mL IM 6+ MO (FLUZONE/FLULAVAL/F LUARIX) Unknown Completed [facility] SARS-COV-2 COVID-19 MODERNA 12+ YRS VACCINE Unknown Completed [facility] SARS-COV-2 COVID-19 MODERNA 12+ YRS VACCINE Unknown Completed [facility] Influenza Virus Vaccine Unknown Completed [facility] Influenza Virus Vaccine Quad IM, Preserv and ABX Free 6 MO-64 YRS (FLUCELVAX) Unknown Completed [facility] TDAP Unknown Completed [facility] MMR Unknown Completed [facility] Varicella (varivax)(chicken pox) Unknown Completed [facility] Influenza Virus Vaccine Unknown Completed [facility] HEPATITIS A Unknown Completed [facility] HEPATITIS A Unknown Completed [facility] Hep B, Adol or Pedi Dosage Unknown Completed [facility] Hep B, Adol or Pedi Dosage Unknown Completed [facility] TD, NOS Unknown Completed [facility] Hep B, Adol or Pedi Dosage Unknown Completed [facility] Influenza Virus Vaccine - Whole Unknown Completed [facility] Pneumococcal Polysaccharide, PPSV23 (PNEUMOVAX) Unknown Completed [facility] TD, NOS Unknown Completed [facility] Influenza Virus Vaccine Unknown Completed [facility] Influenza Virus Vaccine Quad .5 mL IM 6+ MO (FLUZONE/FLULAVAL/F LUARIX) Unknown Completed [facility] SARS-COV-2 COVID-19 MODERNA 12+ YRS VACCINE Unknown Completed [facility] SARS-COV-2 COVID-19 MODERNA 12+ YRS VACCINE Unknown Completed [facility] Influenza Virus Vaccine Unknown Completed [facility] Influenza Virus Vaccine Quad IM, Preserv and ABX Free 6 MO-64 YRS (FLUCELVAX) Unknown Completed [facility] TDAP Unknown Completed [facility] MMR Unknown Completed [facility] Varicella (varivax)(chicken pox) Unknown Completed [facility] Influenza Virus Vaccine Unknown Completed [facility] HEPATITIS A Unknown Completed [facility] HEPATITIS A Unknown Completed [facility] Hep B, Adol or Pedi Dosage Unknown Completed [facility] Hep B, Adol or Pedi Dosage Unknown Completed [facility] TD, NOS Unknown Completed [facility] Hep B, Adol or Pedi Dosage Unknown Completed [facility] Influenza Virus Vaccine - Whole Unknown Completed [facility] Pneumococcal Polysaccharide, PPSV23 (PNEUMOVAX) Unknown Completed [facility] TD, NOS Unknown Completed [facility] Influenza Virus Vaccine Unknown Completed [facility] Influenza Virus Vaccine Quad .5 mL IM 6+ MO (FLUZONE/FLULAVAL/F LUARIX) Unknown Completed [facility] SARS-COV-2 COVID-19 MODERNA 12+ YRS VACCINE Unknown Completed [facility] SARS-COV-2 COVID-19 MODERNA 12+ YRS VACCINE Unknown Completed [facility] Influenza Virus Vaccine Unknown Completed [facility] Influenza Virus Vaccine Quad IM, Preserv and ABX Free 6 MO-64 YRS (FLUCELVAX) Unknown Completed [facility] TDAP Unknown Completed [facility] MMR Unknown Completed [facility] Varicella (varivax)(chicken pox) Unknown Completed [facility] Influenza Virus Vaccine Unknown Completed [facility] HEPATITIS A Unknown Completed [facility] HEPATITIS A Unknown Completed [facility] Hep B, Adol or Pedi Dosage Unknown Completed [facility] Hep B, Adol or Pedi Dosage Unknown Completed [facility] TD, NOS Unknown Completed [facility] Hep B, Adol or Pedi Dosage Unknown Completed [facility] Influenza Virus Vaccine - Whole Unknown Completed [facility] Pneumococcal Polysaccharide, PPSV23 (PNEUMOVAX) Unknown Completed [facility] TD, NOS Unknown Completed [facility] Influenza Virus Vaccine Unknown Completed [facility] Influenza Virus Vaccine Quad .5 mL IM 6+ MO (FLUZONE/FLULAVAL/F LUARIX) Unknown Completed [facility] SARS-COV-2 COVID-19 MODERNA 12+ YRS VACCINE Unknown Completed [facility] SARS-COV-2 COVID-19 MODERNA 12+ YRS VACCINE Unknown Completed [facility] Influenza Virus Vaccine Unknown Completed [facility] Influenza Virus Vaccine Quad IM, Preserv and ABX Free 6 MO-64 YRS (FLUCELVAX) Unknown Completed [facility] TDAP Unknown Completed [facility] MMR Unknown Completed [facility] Varicella (varivax)(chicken pox) Unknown Completed [facility] Influenza Virus Vaccine Unknown Completed [facility] HEPATITIS A Unknown Completed [facility] HEPATITIS A Unknown Completed [facility] Hep B, Adol or Pedi Dosage Unknown Completed [facility] Hep B, Adol or Pedi Dosage Unknown Completed [facility] TD, NOS Unknown Completed [facility] Hep B, Adol or Pedi Dosage Unknown Completed [facility] Influenza Virus Vaccine - Whole Unknown Completed [facility] Pneumococcal Polysaccharide, PPSV23 (PNEUMOVAX) Unknown Completed [facility] TD, NOS Unknown Completed [facility] Influenza Virus Vaccine Unknown Completed [facility] Influenza Virus Vaccine Quad .5 mL IM 6+ MO (FLUZONE/FLULAVAL/F LUARIX) Unknown Completed [facility] SARS-COV-2 COVID-19 MODERNA 12+ YRS VACCINE Unknown Completed [facility] SARS-COV-2 COVID-19 MODERNA 12+ YRS VACCINE Unknown Completed [facility] Influenza Virus Vaccine Unknown Completed [facility] Influenza Virus Vaccine Quad IM, Preserv and ABX Free 6 MO-64 YRS (FLUCELVAX) Unknown Completed [facility] TDAP Unknown Completed [facility] MMR Unknown Completed [facility] Varicella (varivax)(chicken pox) Unknown Completed [facility] Influenza Virus Vaccine Unknown Completed [facility] HEPATITIS A Unknown Completed [facility] HEPATITIS A Unknown Completed [facility] Hep B, Adol or Pedi Dosage Unknown Completed [facility] Hep B, Adol or Pedi Dosage Unknown Completed [facility] TD, NOS Unknown Completed [facility] Hep B, Adol or Pedi Dosage Unknown Completed [facility] Influenza Virus Vaccine - Whole Unknown Completed [facility] Pneumococcal Polysaccharide, PPSV23 (PNEUMOVAX) Unknown Completed [facility] TD, NOS Unknown Completed [facility] Influenza Virus Vaccine Unknown Completed [facility] Influenza Virus Vaccine Quad .5 mL IM 6+ MO (FLUZONE/FLULAVAL/F LUARIX) Unknown Completed [facility] SARS-COV-2 COVID-19 MODERNA 12+ YRS VACCINE Unknown Completed [facility] SARS-COV-2 COVID-19 MODERNA 12+ YRS VACCINE Unknown Completed [facility] Influenza Virus Vaccine Unknown Completed [facility] Influenza Virus Vaccine Quad IM, Preserv and ABX Free 6 MO-64 YRS (FLUCELVAX) Unknown Completed [facility] TDAP Unknown Completed [facility] MMR Unknown Completed [facility] Varicella (varivax)(chicken pox) Unknown Completed [facility] Influenza Virus Vaccine Unknown Completed [facility] HEPATITIS A Unknown Completed [facility] HEPATITIS A Unknown Completed [facility] Hep B, Adol or Pedi Dosage Unknown Completed [facility] Hep B, Adol or Pedi Dosage Unknown Completed [facility] TD, NOS Unknown Completed [facility] Hep B, Adol or Pedi Dosage Unknown Completed [facility] Influenza Virus Vaccine - Whole Unknown Completed [facility] Pneumococcal Polysaccharide, PPSV23 (PNEUMOVAX) Unknown Completed [facility] TD, NOS Unknown Completed [facility] Influenza Virus Vaccine Unknown Completed [facility] Influenza Virus Vaccine Quad .5 mL IM 6+ MO (FLUZONE/FLULAVAL/F LUARIX) Unknown Completed [facility] SARS-COV-2 COVID-19 MODERNA 12+ YRS VACCINE Unknown Completed [facility] SARS-COV-2 COVID-19 MODERNA 12+ YRS VACCINE Unknown Completed [facility] Influenza Virus Vaccine Unknown Completed [facility] Influenza Virus Vaccine Quad IM, Preserv and ABX Free 6 MO-64 YRS (FLUCELVAX) Unknown Completed [facility] TDAP Unknown Completed [facility] MMR Unknown Completed [facility] Varicella (varivax)(chicken pox) Unknown Completed [facility] Influenza Virus Vaccine Unknown Completed [facility] HEPATITIS A Unknown Completed [facility] HEPATITIS A Unknown Completed [facility] Hep B, Adol or Pedi Dosage Unknown Completed [facility] Hep B, Adol or Pedi Dosage Unknown Completed [facility] TD, NOS Unknown Completed [facility] Hep B, Adol or Pedi Dosage Unknown Completed [facility] Influenza Virus Vaccine - Whole Unknown Completed [facility] Pneumococcal Polysaccharide, PPSV23 (PNEUMOVAX) Unknown Completed [facility] TD, NOS Unknown Completed [facility] Influenza Virus Vaccine Unknown Completed [facility] Influenza Virus Vaccine Quad .5 mL IM 6+ MO (FLUZONE/FLULAVAL/F LUARIX) Unknown Completed [facility] SARS-COV-2 COVID-19 MODERNA 12+ YRS VACCINE Unknown Completed [facility] SARS-COV-2 COVID-19 MODERNA 12+ YRS VACCINE Unknown Completed [facility] Influenza Virus Vaccine Unknown Completed [facility] Influenza Virus Vaccine Quad IM, Preserv and ABX Free 6 MO-64 YRS (FLUCELVAX) Unknown Completed [facility] TDAP Unknown Completed [facility] MMR Unknown Completed [facility] Varicella (varivax)(chicken pox) Unknown Completed [facility] Influenza Virus Vaccine Unknown Completed [facility] HEPATITIS A Unknown Completed [facility] HEPATITIS A Unknown Completed [facility] Hep B, Adol or Pedi Dosage Unknown Completed [facility] Hep B, Adol or Pedi Dosage Unknown Completed [facility] TD, NOS Unknown Completed [facility] Hep B, Adol or Pedi Dosage Unknown Completed [facility] Influenza Virus Vaccine - Whole Unknown Completed [facility] Pneumococcal Polysaccharide, PPSV23 (PNEUMOVAX) Unknown Completed [facility] TD, NOS Unknown Completed [facility] Influenza Virus Vaccine Unknown Completed [facility] Influenza Virus Vaccine Quad .5 mL IM 6+ MO (FLUZONE/FLULAVAL/F LUARIX) Unknown Completed [facility] SARS-COV-2 COVID-19 MODERNA 12+ YRS VACCINE Unknown Completed [facility] SARS-COV-2 COVID-19 MODERNA 12+ YRS VACCINE Unknown Completed [facility] Influenza Virus Vaccine Unknown Completed [facility] Influenza Virus Vaccine Quad IM, Preserv and ABX Free 6 MO-64 YRS (FLUCELVAX) Unknown Completed [facility] TDAP Unknown Completed [facility] MMR Unknown Completed [facility] Varicella (varivax)(chicken pox) Unknown Completed [facility] Influenza Virus Vaccine Unknown Completed [facility] HEPATITIS A Unknown Completed [facility] HEPATITIS A Unknown Completed [facility] Hep B, Adol or Pedi Dosage Unknown Completed [facility] Hep B, Adol or Pedi Dosage Unknown Completed [facility] TD, NOS Unknown Completed [facility] Hep B, Adol or Pedi Dosage Unknown Completed [facility] Influenza Virus Vaccine - Whole Unknown Completed [facility] Pneumococcal Polysaccharide, PPSV23 (PNEUMOVAX) Unknown [facility], NOS Unknown Completed [facility] Influenza Virus Vaccine Unknown Completed [facility] Influenza Virus Vaccine Quad .5 mL IM 6+ MO (FLUZONE/FLULAVAL/F LUARIX) Unknown Completed [facility] SARS-COV-2 COVID-19 MODERNA 12+ YRS VACCINE Unknown Completed [facility] SARS-COV-2 COVID-19 MODERNA 12+ YRS VACCINE Unknown Completed [facility] Influenza Virus Vaccine Unknown Completed [facility] Influenza Virus Vaccine Quad IM, Preserv and ABX Free 6 MO-64 YRS (FLUCELVAX) Unknown Completed [facility] TDAP Unknown Completed [facility] MMR Unknown Completed [facility] Varicella (varivax)(chicken pox) Unknown Completed [facility] Influenza Virus Vaccine Unknown Completed [facility] HEPATITIS A Unknown Completed [facility] HEPATITIS A Unknown Completed [facility] Hep B, Adol or Pedi Dosage Unknown Completed [facility] Hep B, Adol or Pedi Dosage Unknown Completed [facility] TD, NOS Unknown Completed [facility] Hep B, Adol or Pedi Dosage Unknown Completed [facility] Influenza Virus Vaccine - Whole Unknown Completed [facility] Pneumococcal Polysaccharide, PPSV23 (PNEUMOVAX) Unknown Completed [facility] TD, NOS Unknown Completed [facility] Influenza Virus Vaccine Unknown Completed [facility] Influenza Virus Vaccine Quad .5 mL IM 6+ MO (FLUZONE/FLULAVAL/F LUARIX) Unknown Completed [facility] SARS-COV-2 COVID-19 MODERNA 12+ YRS VACCINE Unknown Completed [facility] SARS-COV-2 COVID-19 MODERNA 12+ YRS VACCINE Unknown Completed [facility] Influenza Virus Vaccine Unknown Completed [facility] Influenza Virus Vaccine Quad IM, Preserv and ABX Free 6 MO-64 YRS (FLUCELVAX) Unknown Completed [facility] TDAP Unknown Completed [facility] MMR Unknown Completed [facility] Varicella (varivax)(chicken pox) Unknown Completed [facility] Influenza Virus Vaccine Unknown Completed [facility] HEPATITIS A Unknown Completed [facility] HEPATITIS A Unknown Completed [facility] Hep B, Adol or Pedi Dosage Unknown Completed [facility] Hep B, Adol or Pedi Dosage Unknown Completed [facility] TD, NOS Unknown Completed [facility] Hep B, Adol or Pedi Dosage Unknown Completed [facility] Influenza Virus Vaccine - Whole Unknown Completed [facility] Pneumococcal Polysaccharide, PPSV23 (PNEUMOVAX) Unknown Completed [facility] TD, NOS Unknown Completed [facility] Influenza Virus Vaccine Unknown Completed [facility] Influenza Virus Vaccine Quad .5 mL IM 6+ MO (FLUZONE/FLULAVAL/F LUARIX) Unknown Completed [facility] SARS-COV-2 COVID-19 MODERNA 12+ YRS VACCINE Unknown Completed [facility] SARS-COV-2 COVID-19 MODERNA 12+ YRS VACCINE Unknown Completed [facility] Influenza Virus Vaccine Unknown Completed [facility] Influenza Virus Vaccine Quad IM, Preserv and ABX Free 6 MO-64 YRS (FLUCELVAX) Unknown Completed [facility] TDAP Unknown Completed [facility] MMR Unknown Completed [facility] Varicella (varivax)(chicken pox) Unknown Completed [facility] Influenza Virus Vaccine Unknown Completed [facility] HEPATITIS A Unknown Completed [facility] HEPATITIS A Unknown Completed [facility] Hep B, Adol or Pedi Dosage Unknown Completed [facility] Hep B, Adol or Pedi Dosage Unknown Completed [facility] TD, NOS Unknown Completed [facility] Hep B, Adol or Pedi Dosage Unknown Completed [facility] Influenza Virus Vaccine - Whole Unknown Completed [facility] Pneumococcal Polysaccharide, PPSV23 (PNEUMOVAX) Unknown Completed [facility] TD, NOS Unknown Completed [facility] Influenza Virus Vaccine Unknown Completed [facility] Influenza Virus Vaccine Quad .5 mL IM 6+ MO (FLUZONE/FLULAVAL/F LUARIX) Unknown Completed [facility] SARS-COV-2 COVID-19 MODERNA 12+ YRS VACCINE Unknown Completed [facility] SARS-COV-2 COVID-19 MODERNA 12+ YRS VACCINE Unknown Completed [facility] Influenza Virus Vaccine Unknown Completed [facility] Influenza Virus Vaccine Quad IM, Preserv and ABX Free 6 MO-64 YRS (FLUCELVAX) Unknown Completed [facility] TDAP Unknown Completed [facility] MMR Unknown Completed [facility] Varicella (varivax)(chicken pox) Unknown Completed [facility] Influenza Virus Vaccine Unknown Completed [facility] HEPATITIS A Unknown Completed [facility] HEPATITIS A Unknown Completed [facility] Hep B, Adol or Pedi Dosage Unknown Completed [facility] Hep B, Adol or Pedi Dosage Unknown Completed [facility] TD, NOS Unknown Completed [facility] Hep B, Adol or Pedi Dosage Unknown Completed [facility] Influenza Virus Vaccine - Whole Unknown Completed [facility] Pneumococcal Polysaccharide, PPSV23 (PNEUMOVAX) Unknown Completed [facility] TD, NOS Unknown Completed [facility] Influenza Virus Vaccine Unknown Completed [facility] Influenza Virus Vaccine Quad .5 mL IM 6+ MO (FLUZONE/FLULAVAL/F LUARIX) Unknown Completed [facility] SARS-COV-2 COVID-19 MODERNA 12+ YRS VACCINE Unknown Completed [facility] SARS-COV-2 COVID-19 MODERNA 12+ YRS VACCINE Unknown Completed [facility] Influenza Virus Vaccine Unknown Completed [facility] Influenza Virus Vaccine Quad IM, Preserv and ABX Free 6 MO-64 YRS (FLUCELVAX) Unknown Completed [facility] TDAP Unknown Completed [facility] MMR Unknown Completed [facility] Varicella (varivax)(chicken pox) Unknown Completed [facility] Influenza Virus Vaccine Unknown Completed [facility] HEPATITIS A Unknown Completed [facility] HEPATITIS A Unknown Completed [facility] Hep B, Adol or Pedi Dosage Unknown Completed [facility] Hep B, Adol or Pedi Dosage Unknown Completed [facility] TD, NOS Unknown Completed [facility] Hep B, Adol or Pedi Dosage Unknown Completed [facility] Influenza Virus Vaccine - Whole Unknown Completed [facility] Pneumococcal Polysaccharide, PPSV23 (PNEUMOVAX) Unknown Completed [facility] TD, NOS Unknown Completed [facility] Influenza Virus Vaccine Unknown Completed [facility] Influenza Virus Vaccine Quad .5 mL IM 6+ MO (FLUZONE/FLULAVAL/F LUARIX) Unknown Completed [facility] SARS-COV-2 COVID-19 MODERNA 12+ YRS VACCINE Unknown Completed [facility] SARS-COV-2 COVID-19 MODERNA 12+ YRS VACCINE Unknown Completed [facility] Influenza Virus Vaccine Unknown Completed [facility] Influenza Virus Vaccine Quad IM, Preserv and ABX Free 6 MO-64 YRS (FLUCELVAX) Unknown Completed [facility] TDAP Unknown Completed [facility] MMR Unknown Completed [facility] Varicella (varivax)(chicken pox) Unknown Completed [facility] Influenza Virus Vaccine Unknown Completed [facility] HEPATITIS A Unknown Com[facility] HEPATITIS A Unknown Completed [facility] Hep B, Adol or Pedi Dosage Unknown Completed [facility] Hep B, Adol or Pedi Dosage Unknown Completed [facility] TD, NOS Unknown Completed [facility] Hep B, Adol or Pedi Dosage Unknown Completed [facility] Influenza Virus Vaccine - Whole Unknown Completed [facility] Pneumococcal Polysaccharide, PPSV23 (PNEUMOVAX) Unknown Completed [facility] TD, NOS Unknown Completed [facility] Influenza Virus Vaccine Unknown Completed [facility] Influenza Virus Vaccine Quad .5 mL IM 6+ MO (FLUZONE/FLULAVAL/F LUARIX) Unknown Completed [facility] SARS-COV-2 COVID-19 MODERNA 12+ YRS VACCINE Unknown Completed [facility] SARS-COV-2 COVID-19 MODERNA 12+ YRS VACCINE Unknown Completed [facility] Influenza Virus Vaccine Unknown Completed [facility] Influenza Virus Vaccine Quad IM, Preserv and ABX Free 6 MO-64 YRS (FLUCELVAX) Unknown Completed [facility] TDAP Unknown Completed [facility] MMR Unknown Completed [facility] Varicella (varivax)(chicken pox) Unknown Completed [facility] Influenza Virus Vaccine Unknown Completed [facility] HEPATITIS A Unknown Completed [facility] HEPATITIS A Unknown Completed [facility] Hep B, Adol or Pedi Dosage Unknown Completed [facility] Hep B, Adol or Pedi Dosage Unknown Completed [facility] TD, NOS Unknown Completed [facility] Hep B, Adol or Pedi Dosage Unknown Completed [facility] Influenza Virus Vaccine - Whole Unknown Completed [facility] Pneumococcal Polysaccharide, PPSV23 (PNEUMOVAX) Unknown Completed [facility] TD, NOS Unknown Completed [facility] Influenza Virus Vaccine Unknown Completed [facility] Influenza Virus Vaccine Quad .5 mL IM 6+ MO (FLUZONE/FLULAVAL/F LUARIX) Unknown Completed [facility] SARS-COV-2 COVID-19 MODERNA 12+ YRS VACCINE Unknown Completed [facility] SARS-COV-2 COVID-19 MODERNA 12+ YRS VACCINE Unknown Completed [facility] Influenza Virus Vaccine Unknown Completed [facility] Influenza Virus Vaccine Quad IM, Preserv and ABX Free 6 MO-64 YRS (FLUCELVAX) Unknown Completed [facility] TDAP Unknown Completed [facility] MMR Unknown Completed [facility] Varicella (varivax)(chicken pox) Unknown Completed [facility] Influenza Virus Vaccine Unknown Completed [facility] HEPATITIS A Unknown Completed [facility] HEPATITIS A Unknown Completed [facility] Hep B, Adol or Pedi Dosage Unknown Completed [facility] Hep B, Adol or Pedi Dosage Unknown Completed [facility] TD, NOS Unknown Completed [facility] Hep B, Adol or Pedi Dosage Unknown Completed [facility] Influenza Virus Vaccine - Whole Unknown Completed [facility] Pneumococcal Polysaccharide, PPSV23 (PNEUMOVAX) Unknown Completed [facility] TD, NOS Unknown Completed [facility] Influenza Virus Vaccine Unknown Completed [facility] Influenza Virus Vaccine Quad .5 mL IM 6+ MO (FLUZONE/FLULAVAL/F LUARIX) Unknown Completed [facility] SARS-COV-2 COVID-19 MODERNA 12+ YRS VACCINE Unknown Completed [facility] SARS-COV-2 COVID-19 MODERNA 12+ YRS VACCINE Unknown Completed [facility] Influenza Virus Vaccine Unknown Completed [facility] Influenza Virus Vaccine Quad IM, Preserv and ABX Free 6 MO-64 YRS (FLUCELVAX) Unknown Completed [facility] TDAP Unknown Completed [facility] MMR Unknown Completed [facility] Varicella (varivax)(chicken pox) Unknown Completed [facility] Influenza Virus Vaccine Unknown Completed [facility] HEPATITIS A Unknown Completed [facility] HEPATITIS A Unknown Completed [facility] Hep B, Adol or Pedi Dosage Unknown Completed [facility] Hep B, Adol or Pedi Dosage Unknown Completed [facility] TD, NOS Unknown Completed [facility] Hep B, Adol or Pedi Dosage Unknown Completed [facility] Influenza Virus Vaccine - Whole Unknown Completed [facility] Pneumococcal Polysaccharide, PPSV23 (PNEUMOVAX) Unknown Completed [facility] TD, NOS Unknown Completed [facility] Influenza Virus Vaccine Unknown Completed [facility] Influenza Virus Vaccine Quad .5 mL IM 6+ MO (FLUZONE/FLULAVAL/F LUARIX) Unknown Completed [facility] SARS-COV-2 COVID-19 MODERNA 12+ YRS VACCINE Unknown Completed [facility] SARS-COV-2 COVID-19 MODERNA 12+ YRS VACCINE Unknown Completed [facility] Influenza Virus Vaccine Unknown Completed [facility] Influenza Virus Vaccine Quad IM, Preserv and ABX Free 6 MO-64 YRS (FLUCELVAX) Unknown Completed [facility] TDAP Unknown Completed [facility] MMR Unknown Completed [facility] Varicella (varivax)(chicken pox) Unknown Completed [facility] Influenza Virus Vaccine Unknown Completed [facility] HEPATITIS A Unknown Completed [facility] HEPATITIS A Unknown Completed [facility] Hep B, Adol or Pedi Dosage Unknown Completed [facility] Hep B, Adol or Pedi Dosage Unknown Completed [facility] TD, NOS Unknown Completed [facility] Hep B, Adol or Pedi Dosage Unknown Completed [facility] Influenza Virus Vaccine - Whole Unknown Completed [facility] Pneumococcal Polysaccharide, PPSV23 (PNEUMOVAX) Unknown Completed [facility] TD, NOS Unknown Completed [facility] Influenza Virus Vaccine Unknown Completed [facility] Influenza Virus Vaccine Quad .5 mL IM 6+ MO (FLUZONE/FLULAVAL/F LUARIX) Unknown Completed [facility] SARS-COV-2 COVID-19 MODERNA 12+ YRS VACCINE Unknown Completed [facility] SARS-COV-2 COVID-19 MODERNA 12+ YRS VACCINE Unknown Completed [facility] Influenza Virus Vaccine Unknown Completed [facility] Influenza Virus Vaccine Quad IM, Preserv and ABX Free 6 MO-64 YRS (FLUCELVAX) Unknown Completed [facility] TDAP Unknown Completed [facility] MMR Unknown Completed [facility] Varicella (varivax)(chicken pox) Unknown Completed [facility] Influenza Virus Vaccine Unknown Completed [facility] HEPATITIS A Unknown Completed [facility] HEPATITIS A Unknown Completed [facility] Hep B, Adol or Pedi Dosage Unknown Completed [facility] Hep B, Adol or Pedi Dosage Unknown Completed [facility] TD, NOS Unknown Completed [facility] Hep B, Adol or Pedi Dosage Unknown Completed [facility] Influenza Virus Vaccine - Whole Unknown Completed [facility] Pneumococcal Polysaccharide, PPSV23 (PNEUMOVAX) Unknown Completed [facility] TD, NOS Unknown Completed [facility] Influenza Virus Vaccine Unknown Completed [facility] Influenza Virus Vaccine Quad .5 mL IM 6+ MO (FLUZONE/FLULAVAL/F LUARIX) Unknown Completed [facility] SARS-COV-2 COVID-19 MODERNA 12+ YRS VACCINE Unknown Completed [facility] SARS-COV-2 COVID-19 MODERNA 12+ YRS VACCINE Unknown Completed [facility] Influenza Virus Vaccine Unknown Completed [facility] Influenza Virus Vaccine Quad IM, Preserv and ABX Free 6 MO-64 YRS (FLUCELVAX) Unknown Completed [facility] TDAP Unknown Completed [facility] MMR Unknown Completed [facility] Varicella (varivax)(chicken pox) Unknown Completed [facility] Influenza Virus Vaccine Unknown Completed [facility] HEPATITIS A Unknown Completed [facility] HEPATITIS A Unknown Completed [facility] Hep B, Adol or Pedi Dosage Unknown Completed [facility] Hep B, Adol or Pedi Dosage Unknown Completed [facility] TD, NOS Unknown Completed [facility] Hep B, Adol or Pedi Dosage Unknown Completed [facility] Influenza Virus Vaccine - Whole Unknown Completed [facility] Pneumococcal Polysaccharide, PPSV23 (PNEUMOVAX) Unknown Completed [facility] TD, NOS Unknown Completed [facility] Influenza Virus Vaccine Unknown Completed [facility] Influenza Virus Vaccine Quad .5 mL IM 6+ MO (FLUZONE/FLULAVAL/F LUARIX) Unknown Completed [facility] SARS-COV-2 COVID-19 MODERNA 12+ YRS VACCINE Unknown Completed [facility] SARS-COV-2 COVID-19 MODERNA 12+ YRS VACCINE Unknown Completed [facility] Influenza Virus Vaccine Unknown Completed [facility] Influenza Virus Vaccine Quad IM, Preserv and ABX Free 6 MO-64 YRS (FLUCELVAX) Unknown Completed [facility] TDAP Unknown Completed [facility] MMR Unknown Completed [facility] Varicella (varivax)(chicken pox) Unknown Completed [facility] Influenza Virus Vaccine Unknown Completed [facility] HEPATITIS A Unknown Completed [facility] HEPATITIS A Unknown Completed [facility] Hep B, Adol or Pedi Dosage Unknown Completed [facility] Hep B, Adol or Pedi Dosage Unknown Completed [facility] TD, NOS Unknown Completed [facility] Hep B, Adol or Pedi Dosage Unknown Completed [facility] Influenza Virus Vaccine - Whole Unknown Completed [facility] Pneumococcal Polysaccharide, PPSV23 (PNEUMOVAX) Unknown Completed [facility] TD, NOS Unknown Completed [facility] Influenza Virus Vaccine Unknown Completed [facility] Influenza Virus Vaccine Quad .5 mL IM 6+ MO (FLUZONE/FLULAVAL/F LUARIX) Unknown Completed [facility] SARS-COV-2 COVID-19 MODERNA 12+ YRS VACCINE Unknown Completed [facility] SARS-COV-2 COVID-19 MODERNA 12+ YRS VACCINE Unknown Completed [facility] Influenza Virus Vaccine Unknown Completed [facility] Influenza Virus Vaccine Quad IM, Preserv and ABX Free 6 MO-64 YRS (FLUCELVAX) Unknown Completed [facility] TDAP Unknown Completed [facility] MMR Unknown Completed [facility] Varicella (varivax)(chicken pox) Unknown Completed [facility] Influenza Virus Vaccine Unknown Completed [facility] HEPATITIS A Unknown Completed [facility] HEPATITIS A Unknown Completed [facility] Hep B, Adol or Pedi Dosage Unknown Completed [facility] Hep B, Adol or Pedi Dosage Unknown Completed [facility] TD, NOS Unknown Completed [facility] Hep B, Adol or Pedi Dosage Unknown Completed [facility] Influenza Virus Vaccine - Whole Unknown Completed [facility] Pneumococcal Polysaccharide, PPSV23 (PNEUMOVAX) Unknown Completed [facility] TD, NOS Unknown Completed [facility] Influenza Virus Vaccine Unknown Completed [facility] Influenza Virus Vaccine Quad .5 mL IM 6+ MO (FLUZONE/FLULAVAL/F LUARIX) Unknown Completed [facility] SARS-COV-2 COVID-19 MODERNA 12+ YRS VACCINE Unknown Completed [facility] SARS-COV-2 COVID-19 MODERNA 12+ YRS VACCINE Unknown Completed [facility] Influenza Virus Vaccine Unknown Completed [facility] Influenza Virus Vaccine Quad IM, Preserv and ABX Free 6 MO-64 YRS (FLUCELVAX) Unknown Completed [facility] TDAP Unknown Completed [facility] MMR Unknown Completed [facility] Varicella (varivax)(chicken pox) Unknown Completed [facility] Influenza Virus Vaccine Unknown Completed [facility] HEPATITIS A Unknown Completed [facility] HEPATITIS A Unknown Completed [facility] Hep B, Adol or Pedi Dosage Unknown Completed [facility] Hep B, Adol or Pedi Dosage Unknown Completed [facility] TD, NOS Unknown Completed [facility] Hep B, Adol or Pedi Dosage Unknown Completed [facility] Influenza Virus Vaccine - Whole Unknown Completed [facility] Pneumococcal Polysaccharide, PPSV23 (PNEUMOVAX) Unknown Completed [facility] TD, NOS Unknown Completed [facility] Influenza Virus Vaccine Unknown Completed [facility] Influenza Virus Vaccine Quad .5 mL IM 6+ MO (FLUZONE/FLULAVAL/F LUARIX) Unknown Completed [facility] SARS-COV-2 COVID-19 MODERNA 12+ YRS VACCINE Unknown Completed [facility] SARS-COV-2 COVID-19 MODERNA 12+ YRS VACCINE Unknown Completed [facility] Influenza Virus Vaccine Unknown Completed [facility] Influenza Virus Vaccine Quad IM, Preserv and ABX Free 6 MO-64 YRS (FLUCELVAX) Unknown Completed [facility] TDAP Unknown Completed [facility] MMR Unknown Completed [facility] Varicella (varivax)(chicken pox) Unknown Completed [facility] Influenza Virus Vaccine Unknown Completed [facility] HEPATITIS A Unknown Completed [facility] HEPATITIS A Unknown Completed [facility] Hep B, Adol or Pedi Dosage Unknown Completed [facility] Hep B, Adol or Pedi Dosage Unknown Completed [facility] TD, NOS Unknown Completed [facility] Hep B, Adol or Pedi Dosage Unknown Completed [facility] Influenza Virus Vaccine - Whole Unknown Completed [facility] Pneumococcal Polysaccharide, PPSV23 (PNEUMOVAX) Unknown Completed [facility] TD, NOS Unknown Completed [facility] Influenza Virus Vaccine Unknown Completed [facility] Influenza Virus Vaccine Quad .5 mL IM 6+ MO (FLUZONE/FLULAVAL/F LUARIX) Unknown Completed [facility] SARS-COV-2 COVID-19 MODERNA 12+ YRS VACCINE Unknown Completed [facility] SARS-COV-2 COVID-19 MODERNA 12+ YRS VACCINE Unknown Completed [facility] Influenza Virus Vaccine Unknown Completed [facility] Influenza Virus Vaccine Quad IM, Preserv and ABX Free 6 MO-64 YRS (FLUCELVAX) Unknown Completed [facility] TDAP Unknown Completed [facility] MMR Unknown Completed [facility] Varicella (varivax)(chicken pox) Unknown Completed [facility] Influenza Virus Vaccine Unknown Completed [facility] HEPATITIS A Unknown [facility] HEPATITIS A Unknown Completed [facility] Hep B, Adol or Pedi Dosage Unknown Completed [facility] Hep B, Adol or Pedi Dosage Unknown Completed [facility] TD, NOS Unknown Completed [facility] Hep B, Adol or Pedi Dosage Unknown Completed [facility] Influenza Virus Vaccine - Whole Unknown Completed [facility] Pneumococcal Polysaccharide, PPSV23 (PNEUMOVAX) Unknown Completed [facility] TD, NOS Unknown Completed [facility] Influenza Virus Vaccine Unknown Completed [facility] Influenza Virus Vaccine Quad .5 mL IM 6+ MO (FLUZONE/FLULAVAL/F LUARIX) Unknown Completed [facility] SARS-COV-2 COVID-19 MODERNA 12+ YRS VACCINE Unknown Completed [facility] SARS-COV-2 COVID-19 MODERNA 12+ YRS VACCINE Unknown Completed [facility] Influenza Virus Vaccine Unknown Completed [facility] Influenza Virus Vaccine Quad IM, Preserv and ABX Free 6 MO-64 YRS (FLUCELVAX) Unknown Completed [facility] TDAP Unknown Completed [facility] MMR Unknown Completed [facility] Varicella (varivax)(chicken pox) Unknown Completed [facility] Influenza Virus Vaccine Unknown Completed [facility] HEPATITIS A Unknown Completed [facility] HEPATITIS A Unknown Completed [facility] Hep B, Adol or Pedi Dosage Unknown Completed [facility] Hep B, Adol or Pedi Dosage Unknown Completed [facility] TD, NOS Unknown Completed [facility] Hep B, Adol or Pedi Dosage Unknown Completed [facility] Influenza Virus Vaccine - Whole Unknown Completed [facility] Pneumococcal Polysaccharide, PPSV23 (PNEUMOVAX) Unknown Completed [facility] TD, NOS Unknown Completed [facility] Influenza Virus Vaccine Unknown Completed [facility] TDAP Unknown Completed [facility] MMR Unknown Completed [facility] Varicella (varivax)(chicken pox) Unknown Completed [facility] Influenza Virus Vaccine Unknown Completed [facility] HEPATITIS A Unknown Completed [facility] HEPATITIS A Unknown Completed [facility] Hep B, Adol or Pedi Dosage Unknown Completed [facility] Hep B, Adol or Pedi Dosage Unknown Completed [facility] TD, NOS Unknown Completed [facility] Hep B, Adol or Pedi Dosage Unknown Completed [facility] Influenza Virus Vaccine - Whole Unknown Completed [facility] Pneumococcal Polysaccharide, PPSV23 (PNEUMOVAX) Unknown Completed [facility] TD, NOS Unknown Completed [facility] Influenza Virus Vaccine Unknown Completed [facility] TDAP Unknown Completed [facility] MMR Unknown Completed [facility] Varicella (varivax)(chicken pox) Unknown Completed [facility] Influenza Virus Vaccine Unknown Completed [facility] HEPATITIS A Unknown Completed [facility] HEPATITIS A Unknown Completed [facility] Hep B, Adol or Pedi Dosage Unknown Completed [facility] Hep B, Adol or Pedi Dosage Unknown Completed [facility] TD, NOS Unknown Completed [facility] Hep B, Adol or Pedi Dosage Unknown Completed [facility] Influenza Virus Vaccine - Whole Unknown Completed [facility] Pneumococcal Polysaccharide, PPSV23 (PNEUMOVAX) Unknown Completed [facility] TD, NOS Unknown Completed [facility] Influenza Virus Vaccine Unknown Completed [facility] Influenza Virus Vaccine Quad .5 mL IM 6+ MO (FLUZONE/FLULAVAL/F LUARIX) Unknown Completed [facility] SARS-COV-2 COVID-19 MODERNA 12+ YRS VACCINE Unknown Completed [facility] SARS-COV-2 COVID-19 MODERNA 12+ YRS VACCINE Unknown Completed [facility] Influenza Virus Vaccine Unknown Completed [facility] Influenza Virus Vaccine Quad IM, Preserv and ABX Free 6 MO-64 YRS (FLUCELVAX) Unknown Completed [facility] TDAP Unknown Completed [facility] MMR Unknown Completed [facility] Varicella (varivax)(chicken pox) Unknown Completed [facility] Influenza Virus Vaccine Unknown Completed [facility] HEPATITIS A Unknown Completed [facility] HEPATITIS A Unknown Completed [facility] Hep B, Adol or Pedi Dosage Unknown Completed [facility] Hep B, Adol or Pedi Dosage Unknown Completed [facility] TD, NOS Unknown Completed [facility] Hep B, Adol or Pedi Dosage Unknown Completed [facility] Influenza Virus Vaccine - Whole Unknown Completed [facility] Pneumococcal Polysaccharide, PPSV23 (PNEUMOVAX) Unknown Completed [facility] TD, NOS Unknown Completed [facility] Influenza Virus Vaccine Unknown Completed [facility] Influenza Virus Vaccine Quad .5 mL IM 6+ MO (FLUZONE/FLULAVAL/F LUARIX) Unknown Completed [facility] SARS-COV-2 COVID-19 MODERNA 12+ YRS VACCINE Unknown Completed [facility] SARS-COV-2 COVID-19 MODERNA 12+ YRS VACCINE Unknown Completed [facility] Influenza Virus Vaccine Unknown Completed [facility] Influenza Virus Vaccine Quad IM, Preserv and ABX Free 6 MO-64 YRS (FLUCELVAX) Unknown Completed [facility] TDAP Unknown Completed [facility] MMR Unknown Completed [facility] Varicella (varivax)(chicken pox) Unknown Completed [facility] Influenza Virus Vaccine Unknown Completed [facility] HEPATITIS A Unknown Completed [facility] HEPATITIS A Unknown Completed [facility] Hep B, Adol or Pedi Dosage Unknown Completed [facility] Hep B, Adol or Pedi Dosage Unknown Completed [facility] TD, NOS Unknown Completed [facility] Hep B, Adol or Pedi Dosage Unknown Completed [facility] Influenza Virus Vaccine - Whole Unknown Completed [facility] Pneumococcal Polysaccharide, PPSV23 (PNEUMOVAX) Unknown Completed [facility] TD, NOS Unknown Completed [facility] Influenza Virus Vaccine Unknown Completed [facility] Influenza Virus Vaccine Quad .5 mL IM 6+ MO (FLUZONE/FLULAVAL/F LUARIX) Unknown Completed [facility] SARS-COV-2 COVID-19 MODERNA 12+ YRS VACCINE Unknown Completed [facility] SARS-COV-2 COVID-19 MODERNA 12+ YRS VACCINE Unknown Completed [facility] Influenza Virus Vaccine Unknown Completed [facility] Influenza Virus Vaccine Quad IM, Preserv and ABX Free 6 MO-64 YRS (FLUCELVAX) Unknown Completed [facility] TDAP Unknown Completed [facility] MMR Unknown Completed [facility] Varicella (varivax)(chicken pox) Unknown Completed [facility] Influenza Virus Vaccine Unknown Completed [facility] HEPATITIS A Unknown Completed [facility]IS [facility] Completed [facility] Hep B, Adol or Pedi Dosage Unknown Completed [facility] TD, NOS Unknown Completed [facility] Hep B, Adol or Pedi Dosage Unknown Completed [facility] Influenza Virus Vaccine - Whole Unknown Completed [facility] Pneumococcal Polysaccharide, PPSV23 (PNEUMOVAX) Unknown Completed [facility] TD, NOS Unknown Completed [facility] Influenza Virus Vaccine Unknown Completed [facility] Influenza Virus Vaccine Quad .5 mL IM 6+ MO (FLUZONE/FLULAVAL/F LUARIX) Unknown Completed [facility] SARS-COV-2 COVID-19 MODERNA 12+ YRS VACCINE Unknown Completed [facility] SARS-COV-2 COVID-19 MODERNA 12+ YRS VACCINE Unknown Completed [facility] Influenza Virus Vaccine Unknown Completed [facility] Influenza Virus Vaccine Quad IM, Preserv and ABX Free 6 MO-64 YRS (FLUCELVAX) Unknown Completed [facility] TDAP Unknown Completed [facility] MMR Unknown Completed [facility] Varicella (varivax)(chicken pox) Unknown Completed [facility] Influenza Virus Vaccine Unknown Completed [facility] HEPATITIS A Unknown Completed [facility] HEPATITIS A Unknown Completed [facility] Hep B, Adol or Pedi Dosage Unknown Completed [facility] Hep B, Adol or Pedi Dosage Unknown Completed [facility] TD, NOS Unknown Completed [facility] Hep B, Adol or Pedi Dosage Unknown Completed [facility] Influenza Virus Vaccine - Whole Unknown Completed [facility] Pneumococcal Polysaccharide, PPSV23 (PNEUMOVAX) Unknown Completed [facility] TD, NOS Unknown Completed [facility] Influenza Virus Vaccine Unknown Completed [facility] Influenza Virus Vaccine Quad .5 mL IM 6+ MO (FLUZONE/FLULAVAL/F LUARIX) Unknown Completed [facility] SARS-COV-2 COVID-19 MODERNA 12+ YRS VACCINE Unknown Completed [facility] SARS-COV-2 COVID-19 MODERNA 12+ YRS VACCINE Unknown Completed [facility] Influenza Virus Vaccine Unknown Completed [facility] Influenza Virus Vaccine Quad IM, Preserv and ABX Free 6 MO-64 YRS (FLUCELVAX) Unknown Completed [facility] TDAP Unknown Completed [facility] MMR Unknown Completed [facility] Varicella (varivax)(chicken pox) Unknown Completed [facility] Influenza Virus Vaccine Unknown Completed [facility] HEPATITIS A Unknown Completed [facility] HEPATITIS A Unknown Completed [facility] Hep B, Adol or Pedi Dosage Unknown Completed [facility] Hep B, Adol or Pedi Dosage Unknown Completed [facility] TD, NOS Unknown Completed [facility] Hep B, Adol or Pedi Dosage Unknown Completed [facility] Influenza Virus Vaccine - Whole Unknown Completed [facility] Pneumococcal Polysaccharide, PPSV23 (PNEUMOVAX) Unknown Completed [facility] TD, NOS Unknown Completed [facility] Influenza Virus Vaccine Unknown Completed [facility] Influenza Virus Vaccine Quad .5 mL IM 6+ MO (FLUZONE/FLULAVAL/F LUARIX) Unknown Completed [facility] SARS-COV-2 COVID-19 MODERNA 12+ YRS VACCINE Unknown Completed [facility] SARS-COV-2 COVID-19 MODERNA 12+ YRS VACCINE Unknown Completed [facility] Influenza Virus Vaccine Unknown Completed [facility] Influenza Virus Vaccine Quad IM, Preserv and ABX Free 6 MO-64 YRS (FLUCELVAX) Unknown Completed [facility] TDAP Unknown Completed [facility] MMR Unknown Completed [facility] Varicella (varivax)(chicken pox) Unknown Completed [facility] Influenza Virus Vaccine Unknown Completed [facility] HEPATITIS A Unknown Completed [facility] HEPATITIS A Unknown Completed [facility] Hep B, Adol or Pedi Dosage Unknown Completed [facility] Hep B, Adol or Pedi Dosage Unknown Completed [facility] TD, NOS Unknown Completed [facility] Hep B, Adol or Pedi Dosage Unknown Completed [facility] Influenza Virus Vaccine - Whole Unknown Completed [facility] Pneumococcal Polysaccharide, PPSV23 (PNEUMOVAX) Unknown Completed [facility] TD, NOS Unknown Completed [facility] Influenza Virus Vaccine Unknown Completed [facility] Influenza Virus Vaccine Quad .5 mL IM 6+ MO (FLUZONE/FLULAVAL/F LUARIX) Unknown Completed [facility] SARS-COV-2 COVID-19 MODERNA 12+ YRS VACCINE Unknown Completed [facility] SARS-COV-2 COVID-19 MODERNA 12+ YRS VACCINE Unknown Completed [facility] Influenza Virus Vaccine Unknown Completed [facility] TDAP Unknown Completed [facility] MMR Unknown Completed [facility] Varicella (varivax)(chicken pox) Unknown Completed [facility] Influenza Virus Vaccine Unknown Completed [facility] HEPATITIS A Unknown Completed [facility] HEPATITIS A Unknown Completed [facility] Hep B, Adol or Pedi Dosage Unknown Completed [facility] Hep B, Adol or Pedi Dosage Unknown Completed [facility] TD, NOS Unknown Completed [facility] Hep B, Adol or Pedi Dosage Unknown Completed [facility] Influenza Virus Vaccine - Whole Unknown Completed [facility] Pneumococcal Polysaccharide, PPSV23 (PNEUMOVAX) Unknown Completed [facility] TD, NOS Unknown Completed [facility] Influenza Virus Vaccine Unknown Completed [facility] Influenza Virus Vaccine Quad .5 mL IM 6+ MO (FLUZONE/FLULAVAL/F LUARIX) Unknown Completed [facility] SARS-COV-2 COVID-19 MODERNA 12+ YRS VACCINE Unknown Completed [facility] SARS-COV-2 COVID-19 MODERNA 12+ YRS VACCINE Unknown Completed [facility] Influenza Virus Vaccine Unknown Completed [facility] TDAP Unknown Completed [facility] MMR Unknown Completed [facility] Varicella (varivax)(chicken pox) Unknown Completed [facility] Influenza Virus Vaccine Unknown Completed [facility] HEPATITIS A Unknown Completed [facility] HEPATITIS A Unknown Completed [facility] Hep B, Adol or Pedi Dosage Unknown Completed [facility] Hep B, Adol or Pedi Dosage Unknown Completed [facility] TD, NOS Unknown Completed [facility] Hep B, Adol or Pedi Dosage Unknown Completed [facility] Influenza Virus Vaccine - Whole Unknown Completed [facility] Pneumococcal Polysaccharide, PPSV23 (PNEUMOVAX) Unknown Completed [facility] TD, NOS Unknown Completed [facility] Influenza Virus Vaccine Unknown Completed [facility] Influenza Virus Vaccine Quad .5 mL IM 6+ MO (FLUZONE/FLULAVAL/F LUARIX) Unknown Completed [facility] SARS-COV-2 COVID-19 MODERNA 12+ YRS VACCINE Unknown Completed [facility] SARS-COV-2 COVID-19 MODERNA 12+ YRS VACCINE Unknown Completed [facility] Influenza Virus Vaccine Unknown Completed [facility] TDAP Unknown Completed [facility] MMR Unknown Completed [facility] Varicella (varivax)(chicken pox) Unknown Completed [facility] Influenza Virus Vaccine Unknown Completed [facility] HEPATITIS A Unknown Completed [facility] HEPATITIS A Unknown Completed [facility] Hep B, Adol or Pedi Dosage Unknown Completed [facility] Hep B, Adol or Pedi Dosage Unknown Completed [facility] TD, NOS Unknown Completed [facility] Hep B, Adol or Pedi Dosage Unknown Completed [facility] Influenza Virus Vaccine - Whole Unknown Completed [facility] Pneumococcal Polysaccharide, PPSV23 (PNEUMOVAX) Unknown Completed [facility] TD, NOS Unknown Completed [facility] Influenza Virus Vaccine Unknown Completed [facility] Influenza Virus Vaccine Quad .5 mL IM 6+ MO (FLUZONE/FLULAVAL/F LUARIX) Unknown Completed [facility] SARS-COV-2 COVID-19 MODERNA 12+ YRS VACCINE Unknown Completed [facility] SARS-COV-2 COVID-19 MODERNA 12+ YRS VACCINE Unknown Completed [facility] Influenza Virus Vaccine Unknown Completed [facility] TDAP Unknown Completed [facility] MMR Unknown Completed [facility] Varicella (varivax)(chicken pox) Unknown Completed [facility] Influenza Virus Vaccine Unknown Completed [facility] HEPATITIS A Unknown Completed [facility] HEPATITIS A Unknown Completed [facility] Hep B, Adol or Pedi Dosage Unknown Completed [facility] Hep B, Adol or Pedi Dosage Unknown Completed [facility] TD, NOS Unknown Completed [facility] Hep B, Adol or Pedi Dosage Unknown Completed [facility] Influenza Virus Vaccine - Whole Unknown Completed [facility] Pneumococcal Polysaccharide, PPSV23 (PNEUMOVAX) Unknown Completed [facility] TD, NOS Unknown Completed [facility] Influenza Virus Vaccine Unknown Completed [facility] Influenza Virus Vaccine Quad .5 mL IM 6+ MO (FLUZONE/FLULAVAL/F LUARIX) Unknown Completed [facility] SARS-COV-2 COVID-19 MODERNA 12+ YRS VACCINE Unknown Completed [facility] SARS-COV-2 COVID-19 MODERNA 12+ YRS VACCINE Unknown Completed [facility] Influenza Virus Vaccine Unknown Completed [facility] TDAP Unknown Completed [facility] MMR Unknown Completed [facility] Varicella (varivax)(chicken pox) Unknown Completed [facility] Influenza Virus Vaccine Unknown Completed [facility] HEPATITIS A Unknown Completed [facility] HEPATITIS A Unknown Completed [facility] Hep B, Adol or Pedi Dosage Unknown Completed [facility] Hep B, Adol or Pedi Dosage Unknown Completed [facility] TD, NOS Unknown Completed [facility] Hep B, Adol or Pedi Dosage Unknown Completed [facility] Influenza Virus Vaccine - Whole Unknown Completed [facility] Pneumococcal Polysaccharide, PPSV23 (PNEUMOVAX) Unknown Completed [facility] TD, NOS Unknown Completed [facility] Influenza Virus Vaccine Unknown Completed [facility] Influenza Virus Vaccine Quad .5 mL IM 6+ MO (FLUZONE/FLULAVAL/F LUARIX) Unknown Completed [facility] SARS-COV-2 COVID-19 MODERNA 12+ YRS VACCINE Unknown Completed [facility] SARS-COV-2 COVID-19 MODERNA 12+ YRS VACCINE Unknown Completed [facility] Influenza Virus Vaccine Unknown Completed [facility] TDAP Unknown Completed [facility] MMR Unknown Completed [facility] Varicella (varivax)(chicken pox) Unknown Completed [facility] Influenza Virus Vaccine Unknown Completed [facility] HEPATITIS A Unknown Completed [facility] HEPATITIS A Unknown Completed [facility] Hep B, Adol or Pedi Dosage Unknown Completed [facility] Hep B, Adol or Pedi Dosage Unknown Completed [facility] TD, NOS Unknown Completed [facility] Hep B, Adol or Pedi Dosage Unknown Completed [facility] Influenza Virus Vaccine - Whole Unknown Completed [facility] Pneumococcal Polysaccharide, PPSV23 (PNEUMOVAX) Unknown Completed [facility] TD, NOS Unknown Completed [facility] Influenza Virus Vaccine Unknown Completed [facility] Influenza Virus Vaccine Quad .5 mL IM 6+ MO (FLUZONE/FLULAVAL/F LUARIX) Unknown Completed [facility] SARS-COV-2 COVID-19 MODERNA 12+ YRS VACCINE Unknown Completed [facility] TDAP Unknown Completed [facility] MMR Unknown Completed [facility] Varicella (varivax)(chicken pox) Unknown Completed [facility] Influenza Virus Vaccine Unknown Completed [facility] HEPATITIS A Unknown Completed [facility] HEPATITIS A Unknown Completed [facility] Hep B, Adol or Pedi Dosage Unknown Completed [facility] Hep B, Adol or Pedi Dosage Unknown Completed [facility] TD, NOS Unknown Completed [facility] Hep B, Adol or Pedi Dosage Unknown Completed [facility] Influenza Virus Vaccine - Whole Unknown Completed [facility] Pneumococcal Polysaccharide, PPSV23 (PNEUMOVAX) Unknown Completed [facility] TD, NOS Unknown Completed [facility] Influenza Virus Vaccine Unknown Completed [facility] TDAP Unknown Completed [facility] MMR Unknown Completed [facility] Varicella (varivax)(chicken pox) Unknown Completed [facility] Influenza Virus Vaccine Unknown Completed [facility] HEPATITIS A [facility] Hep B, Adol or Pedi Dosage Unknown Completed [facility] Hep B, Adol or Pedi Dosage Unknown Completed [facility] TD, NOS Unknown Completed [facility] Hep B, Adol or Pedi Dosage Unknown Completed [facility] Influenza Virus Vaccine - Whole Unknown Completed [facility] Pneumococcal Polysaccharide, PPSV23 (PNEUMOVAX) Unknown Completed [facility] TD, NOS Unknown Completed [facility] Influenza Virus Vaccine Unknown Completed [facility] TDAP Unknown Completed [facility] MMR Unknown Completed [facility] Varicella (varivax)(chicken pox) Unknown Completed [facility] Influenza Virus Vaccine Unknown Completed [facility] HEPATITIS A Unknown Completed [facility] HEPATITIS A Unknown Completed [facility] Hep B, Adol or Pedi Dosage Unknown Completed [facility] Hep B, Adol or Pedi Dosage Unknown Completed [facility] TD, NOS Unknown Completed [facility] Hep B, Adol or Pedi Dosage Unknown Completed [facility] Influenza Virus Vaccine - Whole Unknown Completed [facility] Pneumococcal Polysaccharide, PPSV23 (PNEUMOVAX) Unknown Completed [facility] TD, NOS Unknown Completed [facility] Influenza Virus Vaccine Unknown Completed [facility] Influenza Virus Vaccine Quad .5 mL IM 6+ MO (FLUZONE/FLULAVAL/F LUARIX) Unknown Completed [facility] SARS-COV-2 COVID-19 MODERNA 12+ YRS VACCINE Unknown Completed [facility] SARS-COV-2 COVID-19 MODERNA 12+ YRS VACCINE Unknown Completed [facility] Influenza Virus Vaccine Unknown Completed [facility] Influenza Virus Vaccine Quad IM, Preserv and ABX Free 6 MO-64 YRS (FLUCELVAX) Unknown Completed [facility] TDAP Unknown Completed [facility] MMR Unknown Completed [facility] Varicella (varivax)(chicken pox) Unknown Completed [facility] Influenza Virus Vaccine Unknown Completed [facility] HEPATITIS A Unknown Completed [facility] HEPATITIS A Unknown Completed [facility] Hep B, Adol or Pedi Dosage Unknown Completed [facility] Hep B, Adol or Pedi Dosage Unknown Completed [facility] TD, NOS Unknown Completed [facility] Hep B, Adol or Pedi Dosage Unknown Completed [facility] Influenza Virus Vaccine - Whole Unknown Completed [facility] Pneumococcal Polysaccharide, PPSV23 (PNEUMOVAX) Unknown Completed [facility] TD, NOS Unknown Completed [facility] Influenza Virus Vaccine Unknown Completed [facility] Influenza Virus Vaccine Quad .5 mL IM 6+ MO (FLUZONE/FLULAVAL/F LUARIX) Unknown Completed [facility] SARS-COV-2 COVID-19 MODERNA 12+ YRS VACCINE Unknown Completed [facility] SARS-COV-2 COVID-19 MODERNA 12+ YRS VACCINE Unknown Completed [facility] Influenza Virus Vaccine Unknown Completed [facility] Influenza Virus Vaccine Quad IM, Preserv and ABX Free 6 MO-64 YRS (FLUCELVAX) Unknown Completed [facility] TDAP Unknown Completed [facility] MMR Unknown Completed [facility] Varicella (varivax)(chicken pox) Unknown Completed [facility] Influenza Virus Vaccine Unknown Completed [facility] HEPATITIS A Unknown Completed [facility] HEPATITIS A Unknown Completed [facility] Hep B, Adol or Pedi Dosage Unknown Completed [facility] Hep B, Adol or Pedi Dosage Unknown Completed [facility] TD, NOS Unknown Completed [facility] Hep B, Adol or Pedi Dosage Unknown Completed [facility] Influenza Virus Vaccine - Whole Unknown Completed [facility] Pneumococcal Polysaccharide, PPSV23 (PNEUMOVAX) Unknown Completed [facility] TD, NOS Unknown Completed [facility] Influenza Virus Vaccine Unknown Completed [facility] Influenza Virus Vaccine Quad .5 mL IM 6+ MO (FLUZONE/FLULAVAL/F LUARIX) Unknown Completed [facility] SARS-COV-2 COVID-19 MODERNA 12+ YRS VACCINE Unknown Completed [facility] SARS-COV-2 COVID-19 MODERNA 12+ YRS VACCINE Unknown Completed [facility] Influenza Virus Vaccine Unknown Completed [facility] Influenza Virus Vaccine Quad IM, Preserv and ABX Free 6 MO-64 YRS (FLUCELVAX) Unknown Completed [facility] TDAP Unknown Completed [facility] MMR Unknown Completed [facility] Varicella (varivax)(chicken pox) Unknown Completed [facility] Influenza Virus Vaccine Unknown Completed [facility] HEPATITIS A Unknown Completed [facility] HEPATITIS A Unknown Completed [facility] Hep B, Adol or Pedi Dosage Unknown Completed [facility] Hep B, Adol or Pedi Dosage Unknown Completed [facility] TD, NOS Unknown Completed [facility] Hep B, Adol or Pedi Dosage Unknown Completed [facility] Influenza Virus Vaccine - Whole Unknown Completed [facility] Pneumococcal Polysaccharide, PPSV23 (PNEUMOVAX) Unknown Completed [facility] TD, NOS Unknown Completed [facility] Influenza Virus Vaccine Unknown Completed [facility] Influenza Virus Vaccine Quad .5 mL IM 6+ MO (FLUZONE/FLULAVAL/F LUARIX) Unknown Completed [facility] SARS-COV-2 COVID-19 MODERNA 12+ YRS VACCINE Unknown Completed [facility] SARS-COV-2 COVID-19 MODERNA 12+ YRS VACCINE Unknown Completed [facility] Influenza Virus Vaccine Unknown Completed [facility] Influenza Virus Vaccine Quad IM, Preserv and ABX Free 6 MO-64 YRS (FLUCELVAX) Unknown Completed [facility] TDAP Unknown Completed [facility] MMR Unknown Completed [facility] Varicella (varivax)(chicken pox) Unknown Completed [facility] Influenza Virus Vaccine Unknown Completed [facility] HEPATITIS A Unknown Completed [facility] HEPATITIS A Unknown Completed [facility] Hep B, Adol or Pedi Dosage Unknown Completed [facility] Hep B, Adol or Pedi Dosage Unknown Completed [facility] TD, NOS Unknown Completed [facility] Hep B, Adol or Pedi Dosage Unknown Completed [facility] Influenza Virus Vaccine - Whole Unknown Completed [facility] Pneumococcal Polysaccharide, PPSV23 (PNEUMOVAX) Unknown Completed [facility] TD, NOS Unknown Completed [facility] Influenza Virus Vaccine Unknown Completed [facility] Influenza Virus Vaccine Quad .5 mL IM 6+ MO (FLUZONE/FLULAVAL/F LUARIX) Unknown Completed [facility] SARS-COV-2 COVID-19 MODERNA 12+ YRS VACCINE Unknown Completed [facility] SARS-COV-2 COVID-19 MODERNA 12+ YRS VACCINE Unknown Completed [facility] Influenza Virus Vaccine Unknown Completed [facility] Influenza Virus Vaccine Quad IM, Preserv and ABX Free 6 MO-64 YRS (FLUCELVAX) Unknown Completed [facility] TDAP Unknown Completed [facility] MMR Unknown Completed [facility] Varicella (varivax)(chicken pox) Unknown Completed [facility] Influenza Virus Vaccine Unknown Completed [facility] HEPATITIS A Unknown Com[facility] HEPATITIS A Unknown Completed [facility] Hep B, Adol or Pedi Dosage Unknown Completed [facility] Hep B, Adol or Pedi Dosage Unknown Completed [facility] TD, NOS Unknown Completed [facility] Hep B, Adol or Pedi Dosage Unknown Completed [facility] Influenza Virus Vaccine - Whole Unknown Completed [facility] Pneumococcal Polysaccharide, PPSV23 (PNEUMOVAX) Unknown Completed [facility] TD, NOS Unknown Completed [facility] Influenza Virus Vaccine Unknown Completed [facility] Influenza Virus Vaccine Quad .5 mL IM 6+ MO (FLUZONE/FLULAVAL/F LUARIX) Unknown Completed [facility] SARS-COV-2 COVID-19 MODERNA 12+ YRS VACCINE Unknown Completed [facility] SARS-COV-2 COVID-19 MODERNA 12+ YRS VACCINE Unknown Completed [facility] Influenza Virus Vaccine Unknown Completed [facility] Influenza Virus Vaccine Quad IM, Preserv and ABX Free 6 MO-64 YRS (FLUCELVAX) Unknown Completed [facility] TDAP Unknown Completed [facility] MMR Unknown Completed [facility] Varicella (varivax)(chicken pox) Unknown Completed [facility] Influenza Virus Vaccine Unknown Completed [facility] HEPATITIS A Unknown Completed [facility] HEPATITIS A Unknown Completed [facility] Vital Signs Vital Name Observation Time Observation Value Comments S ource Systolic blood pressure 2024-05-31 16:26:00 118 mm[Hg] [facility] Diastolic blood pressure 2024-05-31 16:26:00 81 mm[Hg] [facility] Heart rate 2024-05-31 16:26:00 93 /min [facility] Body temperature 2024-05-31 16:26:00 35.89 Karlie [facility] Body weight 2024-05-31 16:26:00 64.864 kg [facility] BMI 2024-05-31 16:26:00 26.16 kg/m2 [facility] Oxygen saturation in Arterial blood by Pulse oximetry 2024-05-31 16:26:00 96 /min [facility] Systolic blood pressure 2024-03-21 23:33:00 157 mm[Hg] pt upset & states she is in a lot of pain [facility] Diastolic blood pressure 2024-03-21 23:33:00 109 mm[Hg] pt upset & states she is in a lot of pain [facility] Heart rate 2024-03-21 23:32:00 103 /min [facility] Body temperature 2024-03-21 23:32:00 36.72 Karlie [facility] Respiratory rate 2024-03-21 23:32:00 18 /min [facility] Body weight 2024-03-21 23:32:00 66.089 kg [facility] BMI 2024-03-21 23:32:00 26.65 kg/m2 [facility] Oxygen saturation in Arterial blood by Pulse oximetry 2024-03-21 23:32:00 99 /min [facility] Systolic blood pressure 2024-01-17 20:33:00 134 mm[Hg] [facility] Diastolic blood pressure 2024-01-17 20:33:00 94 mm[Hg] [facility] Heart rate 2024-01-17 20:29:00 98 /min [facility] Body temperature 2024-01-17 20:29:00 36.83 Karlie [facility] Respiratory rate 2024-01-17 20:29:00 18 /min [facility] Body weight 2024-01-17 20:29:00 65.318 kg [facility] BMI 2024-01-17 20:29:00 26.34 kg/m2 [facility] Oxygen saturation in Arterial blood by Pulse oximetry 2024-01-17 20:29:00 99 /min [facility] Systolic blood pressure 2024-01-15 17:12:00 132 mm[Hg] [facility] Diastolic blood pressure 2024-01-15 17:12:00 86 mm[Hg] [facility] Heart rate 2024-01-15 17:12:00 98 /min [facility] Body temperature 2024-01-15 17:12:00 36.17 Karlie [facility] Body weight 2024-01-15 17:12:00 64.864 kg [facility] BMI 2024-01-15 17:12:00 26.16 kg/m2 [facility] Oxygen saturation in Arterial blood by Pulse oximetry 2024-01-15 17:12:00 100 /min [facility] Systolic blood pressure 2023-11-28 17:09:00 124 mm[Hg] [facility] Diastolic blood pressure 2023-11-28 17:09:00 91 mm[Hg] [facility] Heart rate 2023-11-28 16:36:00 108 /min [facility] Body temperature 2023-11-28 16:36:00 36.94 Karlie [facility] Respiratory rate 2023-11-28 16:36:00 18 /min [facility] Body weight 2023-11-28 16:36:00 63.776 kg [facility] BMI 2023-11-28 16:36:00 25.72 kg/m2 [facility] Systolic blood pressure 2023-10-06 19:08:00 121 mm[Hg] [facility] Diastolic blood pressure 2023-10-06 19:08:00 81 mm[Hg] [facility] Heart rate 2023-10-06 19:08:00 80 /min [facility] Respiratory rate 2023-10-06 19:08:00 18 /min [facility] Body height 2023-10-06 19:08:00 157.5 cm [facility] Body weight 2023-10-06 19:08:00 65.182 kg [facility] BMI 2023-10-06 19:08:00 26.28 kg/m2 [facility] Systolic blood pressure 2023-04-28 20:15:00 111 mm[Hg] [facility] Diastolic blood pressure 2023-04-28 20:15:00 73 mm[Hg] [facility] Heart rate 2023-04-28 20:15:00 86 /min [facility] Body height 2023-04-28 20:15:00 157.5 cm [facility] Body weight 2023-04-28 20:15:00 64.411 kg [facility] BMI 2023-04-28 20:15:00 25.97 kg/m2 [facility] Oxygen saturation in Arterial blood by Pulse oximetry 2023-04-28 20:15:00 100 /min [facility] Systolic blood pressure 2023-03-24 22:15:00 123 mm[Hg] [facility] Diastolic blood pressure 2023-03-24 22:15:00 86 mm[Hg] [facility] Heart rate 2023-03-24 22:15:00 92 /min [facility] Body temperature 2023-03-24 22:15:00 36.89 Karlie [facility] Respiratory rate 2023-03-24 22:15:00 18 /min [facility] Body height 2023-03-24 22:15:00 162.6 cm [facility] Body weight 2023-03-24 22:15:00 64.864 kg [facility] BMI 2023-03-24 22:15:00 24.55 kg/m2 [facility] Oxygen saturation in Arterial blood by Pulse oximetry 2023-03-24 22:15:00 99 /min [facility] Systolic blood pressure 2022-12-19 16:43:00 110 mm[Hg] [facility] Diastolic blood pressure 2022-12-19 16:43:00 75 mm[Hg] [facility] Heart rate 2022-12-19 16:43:00 79 /min [facility] Body temperature 2022-12-19 16:43:00 36.39 Karlie [facility] Respiratory rate 2022-12-19 16:43:00 18 /min [facility] Body height 2022-12-19 16:43:00 157.5 cm [facility] Body weight 2022-12-19 16:43:00 65.998 kg [facility] BMI 2022-12-19 16:43:00 26.61 kg/m2 [facility] Oxygen saturation in Arterial blood by Pulse oximetry 2022-12-19 16:43:00 100 /min [facility] Systolic blood pressure 2022-11-23 17:07:00 123 mm[Hg] [facility] Diastolic blood pressure 2022-11-23 17:07:00 83 mm[Hg] [facility] Heart rate 2022-11-23 17:07:00 83 /min [facility] Respiratory rate 2022-11-23 17:07:00 18 /min [facility] Body height 2022-11-23 17:07:00 157.5 cm [facility] Body weight 2022-11-23 17:07:00 64.819 kg [facility] BMI 2022-11-23 17:07:00 26.14 kg/m2 [facility] Oxygen saturation in Arterial blood by Pulse oximetry 2022-11-23 17:07:00 97 /min [facility] Systolic blood pressure 2022-09-20 22:12:00 139 mm[Hg] [facility] Diastolic blood pressure 2022-09-20 22:12:00 92 mm[Hg] [facility] Heart rate 2022-09-20 22:12:00 87 /min [facility] Body temperature 2022-09-20 22:12:00 36.83 Karlie [facility] Body height 2022-09-20 22:12:00 154.9 cm [facility] Body weight 2022-09-20 22:12:00 70.398 kg [facility] BMI 2022-09-20 22:12:00 29.32 kg/m2 [facility] Systolic blood pressure 2022-09-13 16:26:00 128 mm[Hg] [facility] Diastolic blood pressure 2022-09-13 16:26:00 84 mm[Hg] [facility] Heart rate 2022-09-13 16:26:00 90 /min [facility] Body temperature 2022-09-13 16:26:00 36.67 Karlie [facility] Body height 2022-09-13 16:26:00 154.9 cm [facility] Body weight 2022-09-13 16:26:00 69.854 kg [facility] BMI 2022-09-13 16:26:00 29.10 kg/m2 [facility] Systolic blood pressure 2022-08-11 21:12:00 122 mm[Hg] [facility] Diastolic blood pressure 2022-08-11 21:12:00 77 mm[Hg] [facility] Heart rate 2022-08-11 21:12:00 87 /min [facility] Body temperature 2022-08-11 21:12:00 37.06 Karlie [facility] Respiratory rate 2022-08-11 21:12:00 18 /min [facility] Body height 2022-08-11 21:12:00 154.9 cm [facility] Body weight 2022-08-11 21:12:00 70.398 kg [facility] BMI 2022-08-11 21:12:00 29.32 kg/m2 [facility] Oxygen saturation in Arterial blood by Pulse oximetry 2022-08-11 21:12:00 99 /min [facility] Systolic blood pressure 2022-05-13 19:17:00 110 mm[Hg] [facility] Diastolic blood pressure 2022-05-13 19:17:00 75 mm[Hg] [facility] Heart rate 2022-05-13 19:17:00 78 /min [facility] Respiratory rate 2022-05-13 19:17:00 17 /min [facility] Body height 2022-05-13 19:17:00 157.5 cm [facility] Body weight 2022-05-13 19:17:00 68.493 kg [facility] BMI 2022-05-13 19:17:00 27.62 kg/m2 [facility] Oxygen saturation in Arterial blood by Pulse oximetry 2022-05-13 19:17:00 98 /min [facility] Systolic blood pressure 2021-06-24 18:08:00 124 mm[Hg] [facility] Diastolic blood pressure 2021-06-24 18:08:00 79 mm[Hg] [facility] Heart rate 2021-06-24 18:08:00 91 /min [facility] Body weight 2021-06-24 18:08:00 72.122 kg [facility] BMI 2021-06-24 18:08:00 28.17 kg/m2 [facility] Oxygen saturation in Arterial blood by Pulse oximetry 2021-06-24 18:08:00 94 /min [facility] Systolic blood pressure 2021-06-24 18:08:00 124 mm[Hg] [facility] Diastolic blood pressure 2021-06-24 18:08:00 79 mm[Hg] [facility] Heart rate 2021-06-24 18:08:00 91 /min [facility] Body weight 2021-06-24 18:08:00 72.122 kg [facility] BMI 2021-06-24 18:08:00 28.17 kg/m2 [facility] Oxygen saturation in Arterial blood by Pulse oximetry 2021-06-24 18:08:00 94 /min [facility] Systolic blood pressure 2021-06-24 18:08:00 124 mm[Hg] [facility] Diastolic blood pressure 2021-06-24 18:08:00 79 mm[Hg] [facility] Heart rate 2021-06-24 18:08:00 91 /min [facility] Body weight 2021-06-24 18:08:00 72.122 kg [facility] BMI 2021-06-24 18:08:00 28.17 kg/m2 [facility] Oxygen saturation in Arterial blood by Pulse oximetry 2021-06-24 18:08:00 94 /min [facility] Procedures Procedure Date / Time Performed Performing Clinician Source XR SHOULDER 2+ VW RIGHT 2024-03-22 00:03:59 Delma Ames [facility] POCT URINALYSIS W/O SPECIFIC GRAVITY 2023-11-28 16:46:00 Kevin Pulido [facility] ASSIGNMENT OF BENEFITS 2023-11-28 16:30:53 Docto r Unassigned, [place] [facility] POCT SARS-COV-2 ANTIGEN (BINAX NOW) 2023-08-07 00:00:00 Gokul Persaud [facility] POCT SARS-COV-2 ANTIGEN (BINAX NOW) 2023-08-04 19:46:00 Сергей Morrison [facility] FLU VACC ([id number]), 6 MO-64 YRS, .5ML, IM, QUAD (FLUCELVAX) 2023-07-05 21:41:38 Cruz Francois [facility] POCT URINALYSIS 2023-04-28 21:19:00 Сергей Morrison [facility] URINE CULTURE 2023-04-28 21:18:00 [facility] COMP. METABOLIC PANEL (41496) 2023-04-28 20:56:00 Giuseppe MontanoHShawna [facility] LIPID PANEL (08758)(TOTAL CHOLESTEROL, TRIGLYCERIDES, HDL) 2023-04-28 20:56:00 Giuseppe Montano [facility] GLYCOSYLATED HEMOGLOBIN (A1C) 2023-04-28 20:56:00 Giuseppe Montano [facility] LOW-DENSITY LIPOPROTEIN, DIRECT 2023-04-28 20:56:00 Giuseppe Montano [facility] POCT SARS-COV-2 ANTIGEN (BINAX NOW) 2023-03-24 23:10:00 Harmony Araya [facility] POCT MOLECULAR STREP 2023-03-24 22:21:00 Unknown, Atte placido [facility] COMP. METABOLIC PANEL (50785) 2022-12-28 13:27:00 Giuseppe Montano [facility] LIPID PANEL (62524)(TOTAL CHOLESTEROL, TRIGLYCERIDES, HDL) 2022-12-28 13:27:00 Giuseppe Montano [facility] CBC WITH DIFF 2022-12-28 13:27:00 Giuseppe Montano [facility] GLYCOSYLATED HEMOGLOBIN (A1C) 2022-12-28 13:27:00 Giuseppe Montano [facility] URINALYSIS 2022-12-28 13:27:00 Gokul Persaud [facility] VITAMIN D, 25-OH 2022-12-28 13:27:00 Micaela Morrison [facility] LOW-DENSITY LIPOPROTEIN, DIRECT 2022-12-28 13:27:00 Giuseppe Montano [facility] FREE T4 2022-12-28 13:27:00 Сергей Morrison [facility] THYROID STIMULATING HORMONE 2022-12-28 13:27:00 Сергей Morrison [facility] URINE CULTURE 2022-12-28 13:27:00 [facility] 2022-12-28 13:27:00 Сергей Morrison [facility] PATIENT QUESTIONNAIRE 2022-12-24 05:01:00 Doctor Unassigned, [place] [facility] POCT URINALYSIS 2022-12-19 16:52:00 Tamiko Сергей [facility] EXTERNAL PROVIDER - ADC CARDIOLOGY 2022-12-02 06:01:00 Doctor Unassigned, [place] [facility] ASSIGNMENT OF BENEFITS 2022-11-23 16:56:34 Docto r Unassigned, [place] [facility] WOUND CULTURE 2022-09-20 22:25:00 Harmony Araya [facility] POCT URINALYSIS W/O SPECIFIC GRAVITY 2022-09-13 00:00:00 Harmony Araya [facility] POCT SARS-COV-2 ANTIGEN (BINAX NOW) 2022-08-11 21:35:00 Alonso Ames [facility] POCT MOLECULAR STREP 2022-08-11 21:33:00 Unknown, Attclare cummins [facility] POCT MOLECULAR FLU 2022-08-11 21:21:00 Unknown, Attend ing [facility] MICROALBUMIN URINE 2022-07-12 13:07:00 Jerad Persaud [facility] COMP. METABOLIC PANEL (92903) 2022-07-12 13:07:00 Giuseppe Montano [facility] LIPID PANEL (79070)(TOTAL CHOLESTEROL, TRIGLYCERIDES, HDL) 2022-07-12 13:07:00 Giuseppe Montano [facility] CBC WITH DIFF 2022-07-12 13:07:00 Gokul Persaud [facility] GLYCOSYLATED HEMOGLOBIN (A1C) 2022-07-12 13:07:00 Gokul Persaud [facility] URINALYSIS 2022-07-12 13:07:00 Gokul Persaud [facility] N-TERMINAL PRO-BNP 2022-07-12 13:07:00 Giuseppe Montano [facility] PHYSICIAN ORDERS 2022-06-17 05:01:00 Doctor Unas signed, [place] [facility] URINALYSIS 2022-05-13 20:03:00 Gokul Persaud [facility] URINE CULTURE 2022-05-13 20:03:00 Gokul Persaud [facility] EKG-12 LEAD 2021-06-24 18:11:22 Giuseppe Montano [facility] Plan of Care Planned Activity Planned Date Details Comments Source Encounters Start Date/Time End Date/Time Encounter Type Admission Type Attending [facility] Care Facility Care Department Encounter ID Source 2021-07-24 06:30:58 Inpatient U ARUNAT[facility]KEAGAN [facility] [id number] [facility] 2024-06-05 14:00:00 2024-06-05 14:00:00 Outpatient R [facility] [id number] [facility] 2024-06-03 14:00:00 2024-06-03 14:00:00 Outpatient R [facility] [id number] [facility] 2024-05-31 14:20:00 2024-05-31 14:20:00 Nurse Visit Nurse, [facility] Сергей Morrison Nurse, [facility] 1.2.840.114 350.1.13.10 4.2.7.2.686 [id number] [facility] 2024-05-31 14:20:00 2024-05-31 11:30:25 Outpatient R СЕРГЕЙ MORRISON OGECHUKWU [facility] [id number] [facility] 2024-05-30 11:00:00 2024-05-30 11:00:00 Outpatient R KEVIN PULIDO VIEN [facility] [id number] [facility] 2024-05-29 12:00:00 2024-05-29 12:00:00 Outpatient R СЕРГЕЙ MORRISON OGECHUKWU [facility] [id number] [facility] 2024-05-28 00:00:00 2024-05-28 14:18:39 Telephone Сергей Morrison [facility] 1.2.840.114 350.1.13.10 4.2.7.2.686 [id number] [facility] 2024-05-28 12:00:00 2024-05-28 12:53:30 Outpatient R СЕРГЕЙ MORRISON OGECHUKWU [facility] [id number] [facility] 2024-05-23 00:00:00 2024-05-24 09:32:27 Vitaliy Monsivais [facility] 1..840.114 350.1.13.10 4.2.7.2.686 [id number] [facility] 2024-05-22 11:30:00 2024-05-22 11:30:00 Outpatient R СЕРГЕЙ MORRISON OGECHUKWU [facility] [id number] [facility] 2024-05-17 11:00:00 2024-05-17 11:00:00 Outpatient R СЕРГЕЙ MORRISON OGECHUKWU [facility] [id number] [facility] 2024-03-22 00:00:00 2024-04-27 18:24:42 Patient Secure Msg Doctor Unassigned, [place] [facility] 1..840.114 350.1.13.10 4.2.7.2.686 [id number] [facility] 2024-04-05 11:30:00 2024-04-05 11:30:00 Outpatient R VITALIY JEWELL [facility] [id number] [facility] 2024-03-21 18:49:45 2024-03-21 23:59:00 Outpatient R ALONSO AMES [facility] [id number] [facility] 2024-03-21 18:49:45 2024-03-21 23:59:00 Hospital Encounter Alonso Ames [facility] 1.0.114 350.1.13.10 4.2.7.2.686 [id number] [facility] 2024-03-21 18:20:00 2024-03-21 19:15:45 Urgent Care Alonso Ames [facility] 1.0.114 350.1.13.10 4.2.7.2.686 [id number] [facility] 2024-03-14 08:00:00 2024-03-14 08:00:00 Outpatient R KEVIN PULIDO [facility] [id number] [facility] 2019-08-21 00:00:00 2024-03-12 02:25:03 Mobile Device Encounter Flory Nagy [facility] 1.114 350.1.13.10 4.2.7.2.686 [id number] [facility] 2020-03-13 00:00:00 2024-03-12 02:23:21 Mobile Device Encounter Helen Ugalde [facility] BU[facility] 1..114 350.1.13.10 4.2.7.2.686 [id number] [facility] 2024-01-17 15:00:00 2024-01-17 15:26:10 Outpatient R OBI-DEMAR IKER OBI-DEMAR , [facility] [id number] [facility] 2024-01-17 15:00:00 2024-01-17 15:26:10 Nurse Visit Nurse, Edgard Hoyos Obi-Demar , [facility] BUILDING 1..114 350.1.13.10 4.2.7.2.686 [id number] [facility] 2024-01-17 14:20:00 2024-01-17 14:20:00 Outpatient R [facility] [id number] [facility] 2024-01-15 12:00:00 2024-01-15 12:46:33 Outpatient R СЕРГЕЙ MORRISON OGECHUKWU [facility] [id number] [facility] 2024-01-15 12:00:00 2024-01-15 12:46:33 Office Visit Сергей Morrison [facility] BUILDING 1.2.840.114 350.1.13.10 4.2.7.2.686 [id number] [facility] 2024-01-15 00:00:00 2024-01-15 00:00:00 Telephone Сергей Morrison [facility] BUILDING 1.2.840.114 350.1.13.10 4.2.7.2.686 [id number] [facility] 2024-01-15 00:00:00 2024-01-15 00:00:00 Refill Сергей Morrison [facility] BUILDING 1.2.840.114 350.1.13.10 4.2.7.2.686 [id number] [facility] 2024-01-12 15:30:00 2024-01-12 15:45:00 Pediatric Assistant Visit 2, Adc Lab Сергей Morrison [facility] BUILDING 1.2.840.114 350.1.13.10 4.2.7.2.686 [id number] [facility] 2024-01-12 15:30:00 2024-01-12 15:30:00 Outpatient R СЕРГЕЙ MORRISON СЕРГЕЙ [facility] [id number] [facility] 2024-01-12 00:00:00 2024-01-12 00:00:00 Telephone Сергей Morrison [facility] BUILDING 1.2.840.114 350.1.13.10 4.2.7.2.686 [id number] [id number] [facility] 2024-01-12 00:00:00 2024-01-12 00:00:00 Telephone Сергей Morrsion [facility] BUILDING 1.2.840.114 350.1.13.10 4.2.7.2.686 [id number] [id number] [facility] 2024-01-09 00:00:00 2024-01-09 00:00:00 Refill Сергей Morrison [facility] BUILDING 1.2.840.114 350.1.13.10 4.2.7.2.686 [id number] [facility] 2023-12-27 00:00:00 2023-12-27 00:00:00 Refill Kevin Pulido [facility] BUILDING 1.2.840.114 350.1.13.10 4.2.7.2.686 [id number] [facility] 2023-12-27 00:00:00 2023-12-27 00:00:00 Refill Kevin Pulido [facility] BUILDING 1.2.840.114 350.1.13.10 4.2.7.2.686 [id number] [facility] 2023-12-18 00:00:00 2023-12-18 00:00:00 Refill Сергей Morrison [facility] BUILDING 1.2.840.114 350.1.13.10 4.2.7.2.686 [id number] [id number] [facility] 2023-12-01 00:00:00 2023-12-01 00:00:00 Patient Secure Msg Doctor Unassigned, [place] [facility] 1.2.840.114 350.1.13.10 4.2.7.2.686 [id number] [facility] 2023-11-28 10:45:00 2023-11-28 11:09:18 Outpatient R KEVIN PULIDO [facility] [id number] [facility] 2023-11-28 10:45:00 2023-11-28 11:09:18 Office Visit Kevin Pulido [facility] 1.2.840.114 350.1.13.10 4.2.7.2.686 [id number] [facility] 2023-11-28 00:00:00 2023-11-28 00:00:00 Orders Only Doctor Unassigned, [place] [facility] 1.2.840.114 350.1.13.10 4.2.7.2.686 [id number] [facility] 2023-11-13 00:00:00 2023-11-13 00:00:00 Refill Kevin Pulido [facility] 1..840.114 350.1.13.10 4.2.7.2.686 [id number] [facility] 2023-11-13 00:00:00 2023-11-13 00:00:00 Refill Gokul Persaud [facility] 1.2.840.114 350.1.13.10 4.2.7.2.686 [id number] [facility] 2023-10-20 11:00:00 2023-10-20 11:00:00 Outpatient R MIMA CHAUHAN [facility] [id number] [facility] 2023-10-13 12:30:00 2023-10-13 12:30:00 Outpatient R MIMA CHAUHAN [facility] [id number] [facility] 2023-10-09 00:00:00 2023-10-09 00:00:00 Telephone Giuseppe Montano [facility] BUILDING 1.2.840.114 350.1.13.10 4.2.7.2.686 [id number] [facility] 2023-10-06 13:00:00 2023-10-06 13:56:46 Outpatient R VITALIY JEWELL [facility] [id number] [facility] 2023-10-06 13:00:00 2023-10-06 13:56:46 Office Visit Vitaliy Jewell [facility] 1.2.840.114 350.1.13.10 4.2.7.2.686 [id number] [facility] 2023-10-03 00:00:00 2023-10-03 00:00:00 Case Management Giuseppe Montano [facility] BUILDING 1.2.840.114 350.1.13.10 4.2.7.2.686 [id number] [facility] 2023-09-29 00:00:00 2023-09-29 00:00:00 Telephone Gokul Persaud [facility] BUILD[facility] 1.2.840.114 350.1.13.10 4.2.7.2.686 [id number] [facility] 2023-09-29 00:00:00 2023-09-29 00:00:00 Refill Giuseppe Montano [facility] BUILDING 1.2.840.114 350.1.13.10 4.2.7.2.686 [id number] [facility] 2023-09-29 00:00:00 2023-09-29 00:00:00 Refill [facility]okul Persaud [facility] 1.2.840.114 350.1.13.10 4.2.7.2.686 [id number] [id number] [facility] 2023-09-29 00:00:00 2023-09-29 00:00:00 Telephone Mima Chauhan [facility] BUILD[facility] 1.2.840.114 350.1.13.10 4.2.7.2.686 [id number] [facility] 2023-09-29 00:00:00 2023-09-29 00:00:00 Telephone Mima Chauhan [facility] BUILDING 1.2.840.114 350.1.13.10 4.2.7.2.686 [id number] [facility] 2023-09-29 00:00:00 2023-09-29 00:00:00 Refill Kevin Pulido [facility] BUILDING 1.2.840.114 350.1.13.10 4.2.7.2.686 [id number] [facility] 2023-09-29 00:00:00 2023-09-29 00:00:00 Refill Mima Chauhan [facility] BUILDING 1.2.840.114 350.1.13.10 4.2.7.2.686 [id number] [facility] 2023-09-29 00:00:00 2023-09-29 00:00:00 Refill Сергей Morrison [facility] BUILDING 1.2.840.114 350.1.13.10 4.2.7.2.686 [id number] [facility] 2023-09-28 07:45:00 2023-09-28 08:00:00 Pediatric Assistant Visit Lab, Roberto Pablo Hung Gokul [facility] 1.2.840.114 350.1.13.10 4.2.7.2.686 [id number] [facility] 2023-09-28 07:45:00 2023-09-28 07:45:00 Outpatient R [facility] [id number] [facility] 2023-09-28 00:00:00 2023-09-28 00:00:00 Patient Secure g Hung [facility] 1.2.840.114 350.1.13.10 4.2.7.2.686 [id number] [facility] 2023-09-08 00:00:00 2023-09-08 00:00:[address] [facility] BUILDING 1.2.840.114 350.1.13.10 4.2.7.2.686 [id number] [facility] 2023-09-06 00:00:00 2023-09-06 00:00:00 Patient Secure Msg Doctor Unassigned, [place] [facility] 1.2.840.114 350.1.13.10 4.2.7.2.686 [id number] [facility] 2023-09-05 00:00:00 2023-09-05 00:00:00 Outpatient GC_GCBZW_Ka diyala_S PRIV PRIV [id number] [facility] 2023-09-05 00:00:00 2023-09-05 00:00:00 Outpatient GC_GCBZW_Ka diyala_S PRIV PRIV [id number] [facility] 2023-09-01 00:00:00 2023-09-01 00:00:00 Telephone Gokul Persaud [facility] 1..840.114 350.1.13.10 4.2.7.2.686 [id number] [facility] 2023-08-25 00:00:00 2023-08-25 00:00:00 Outpatient R MIRIAMVAIBHAV GOKUL [facility] [id number] [facility] 2023-08-07 14:20:00 2023-08-07 14:40:00 Nurse Visit [facility], [facility] 1..840.114 350.1.13.10 4.2.7.2.686 [id number] [facility] 2023-08-07 14:20:00 2023-08-07 13:49:55 Outpatient R HUNG GOKUL [facility] [id number] [facility] 2023-08-04 15:00:00 2023-08-04 15:52:30 Outpatient R TAMIKO HILARIAMIKHAIL TAMIKOARNOL MARTINSGerardoHilary [facility] [id number] [facility] 2023-08-04 15:00:00 2023-08-04 15:52:30 Telemedici ne Visit TamikoArnolmikhail [facility] 1..840.114 350.1.13.10 4.2.7.2.686 [id number] [facility] 2023-08-04 14:20:00 2023-08-04 14:20:00 Nurse Visit Nurse, [facility] Miriamvaibhav [facility] BUILDING 1.2.840.114 350.1.13.10 4.2.7.2.686 [id number] [facility] 2023-07-24 00:00:00 2023-07-24 00:00:00 Outpatient GC_GCBZW_Ka neisha_S [facility] [id number] [facility] 2023-07-10 00:00:00 2023-07-10 00:00:00 Telephone Сергей Morrison [facility] BUILDING 1..840.114 350.1.13.10 4.2.7.2.686 [id number] [facility] 2023-07-06 14:32:00 2023-07-06 23:59:00 Hospital Encounter David Valdez BUILDING 1..840.114 350.1.13.10 4.2.7.2.686 [id number] [facility] 2023-07-06 00:00:00 2023-07-06 23:59:00 [facility] [id number] [facility] 2023-07-04 14:00:00 2023-07-04 14:20:00 Nurse Visit Nurse, Gokul Rodriguez [facility] BUILDING 1..840.114 350.1.13.10 4.2.7.2.686 [id number] [facility] 2023-07-04 14:00:00 2023-07-04 14:00:00 Outpatient GOKUL FONSECA [facility] [id number] [facility] 2023-06-21 00:00:00 2023-06-21 00:00:00 Patient Secure Msg TamikoСергей [facility] BUILDING 1.2.840.114 350.1.13.10 4.2.7.2.686 [id number] [facility] 2023-06-21 00:00:00 2023-06-21 00:00:00 Refill Сергей Morrison [facility] BUILDING 1.2.840.114 350.1.13.10 4.2.7.2.686 [id number] [facility] 2023-05-05 00:00:00 2023-05-05 00:00:00 Telephone Сергей Morrison [facility] BUILDING 1.2.840.114 350.1.13.10 4.2.7.2.686 [id number] [facility] 2023-05-01 00:00:00 2023-05-01 00:00:00 Telephone Сергей Morrison [facility] BUILDING 1.2.840.114 350.1.13.10 4.2.7.2.686 [id number] [facility] 2023-04-28 15:00:00 2023-04-28 16:16:09 Outpatient R TAMIKOARNOL MARTINSRASHMI TAMIKO, СЕРГЕЙ [facility] [id number] [facility] 2023-04-28 15:00:00 2023-04-28 16:16:09 Office Visit Сергей Morrison [facility] BUILDING 1.2.840.114 350.1.13.10 4.2.7.2.686 [id number] [facility] 2023-04-28 16:00:00 2023-04-28 16:02:00 Pediatric Assistant Visit 2, Adc Lab Сергей Morrison [facility] BUILDING 1.2.840.114 350.1.13.10 4.2.7.2.686 [id number] [facility] 2023-04-25 11:30:00 2023-04-25 11:30:00 Outpatient R TAMIKOСЕРГЕЙ OGECHUKWU [facility] [id number] [facility] 2023-04-21 11:30:00 2023-04-21 11:30:00 Outpatient R СЕРГЕЙ MORRISON OGECHUKWU [facility] [id number] [facility] 2023-04-06 00:00:00 2023-04-06 00:00:00 Telephone Сергей Morrison [facility] BUILDING 1.2.840.114 350.1.13.10 4.2.7.2.686 [id number] [facility] 2023-03-24 17:20:00 2023-03-24 18:18:16 Outpatient R HARMONY ARAYA [facility] [id number] [facility] 2023-03-24 17:20:00 2023-03-24 18:18:16 Urgent Care Harmony Araya Unknown, Attending [facility] 1.2.840.114 350.1.13.10 4.2.7.2.686 [id number] [facility] 2023-03-10 00:00:00 2023-03-10 00:00:00 Giuseppe Lentz [facility] 1.2.840.114 350.1.13.10 4.2.7.2.686 [id number] [facility] 2023-02-23 00:00:00 2023-02-23 00:00:00 Outpatient R RADIOLOGY [facility] [id number] [facility] 2023-02-10 00:00:00 2023-02-10 00:00:00 Patient Secure Msg Сергей Morrison [facility] BUILDING 1.2.840.114 350.1.13.10 4.2.7.2.686 [id number] [facility] 2023-02-10 00:00:00 2023-02-10 00:00:00 Telephone Сергей Morrison [facility] 1.2.840.114 350.1.13.10 4.2.7.2.686 [id number] [id number] [facility] 2023-02-10 00:00:00 2023-02-10 00:00:00 [facility] 1.2.840.114 350.1.13.10 4.2.7.2.686 [id number] 044 [id number] [facility] 2023-02-10 00:00:00 2023-02-10 00:00:00 Telephone Сергей Morrison [facility] 1.2.840.114 350.1.13.10 4.2.7.2.686 [id number] 044 [id number] [facility] 2023-02-10 00:00:00 2023-02-10 00:00:00 Patient Secure Msg [facility]гей [facility] 1.2.840.114 350.1.13.10 4.2.7.2.686 [id number] [facility] 2023-02-07 10:00:00 2023-02-07 10:15:00 Pediatric Assistant Visit 2, Adc Lab Сергей Morrison [facility] 1.2.840.114 350.1.13.10 4.2.7.2.686 [id number] [facility] 2023-02-07 10:00:00 2023-02-07 10:00:00 Outpatient R СЕРГЕЙ MORRISON OGMIRMIKHAIL [facility] [id number] [facility] 2023-01-25 00:00:00 2023-01-25 00:00:00 Patient Secure Msg Сергей Morrison [facility] BUILDING 1.2.840.114 350.1.13.10 4.2.7.2.686 [id number] [id number] [facility] 2023-01-12 00:00:00 2023-01-12 00:00:00 Case Management Giuseppe Montano [facility] 1.2.840.114 350.1.13.10 4.2.7.2.686 [id number] [facility] 2022-12-30 00:00:00 2022-12-30 00:00:00 Telephone TamikoСергей [facility] BUILDING 1.2.840.114 350.1.13.10 4.2.7.2.686 [id number] [id number] [facility] 2022-12-30 00:00:00 2022-12-30 00:00:00 Patient Secure Msg Doctor Unassigned, [place] [facility] BUILDING 1.2.840.114 350.1.13.10 4.2.7.2.686 [id number] 044 [id number] [facility] 2022-12-28 08:15:00 2022-12-28 08:35:36 Pediatric Assistant Visit 2, Adc Lab TamikoСергей [facility] 1.2.840.114 350.1.13.10 4.2.7.2.686 [id number] [facility] 2022-12-28 08:15:00 2022-12-28 08:15:00 Outpatient R СЕРГЕЙ MORRISON OGECHUKWU [facility] [id number] [facility] 2022-12-24 00:00:00 2022-12-24 00:00:00 Orders Only Doctor Unassigned, [place] [facility] 1.2840.114 350.1.13.10 4.2.7.2.686 [id number] [facility] 2022-12-21 00:00:00 2022-12-21 00:00:00 Patient Secure Msg [facility]ей [facility] 1.2840.114 350.1.13.10 4.2.7.2.686 [id number] [id number] [facility] 2022-12-19 11:30:00 2022-12-19 12:27:02 Outpatient R СЕРГЕЙ [facility] [id number] [facility] 2022-12-19 11:30:00 2022-12-19 12:27:02 Office Visit Cristian Morrisonyasmeenrashmi [facility] [place] [facility] 1.2840.114 350.1.13.10 4.2.7.2.686 [id number] 044 [id number] [facility] 2022-12-19 00:00:00 2022-12-19 00:00:00 Patient Secure Msg Doctor Unassigned, [place] [facility] 1.2.114 350.1.13.10 4.2.7.2.686 [id number] [id number] [facility] 2022-12-15 16:00:00 2022-12-15 16:00:00 Outpatient R СЕРГЕЙ MORRISON OGMIRMIKHAIL [facility] [id number] [facility] 2022-12-02 00:00:00 2022-12-02 00:00:00 Case Management Giuseppe Montano [facility] 1.2.114 350.1.13.10 4.2.7.2.686 [id number] [facility] 2022-12-02 00:00:00 2022-12-02 00:00:00 Orders Only Doctor Unassigned, [place] [facility] 1.2.114 350.1.13.10 4.2.7.2.686 [id number] [facility] 2022-11-23 11:00:00 2022-11-23 11:35:45 Outpatient R TAMIKO[facility] [id number] [facility] 2022-11-23 11:00:00 2022-11-23 11:35:45 Office Visit Tamiko, Arnolmikhail [facility] 1.284.114 350.1.13.10 4.2.7.2.686 [id number] [id number] [facility] 2022-11-23 00:00:00 2022-11-23 00:00:00 Orders Only Doctor Unassigned, [place] [facility] 1.2114 350.1.13.10 4.2.7.2.686 [id number] [facility] 2022-11-22 15:30:00 2022-11-22 15:30:00 Outpatient R MIMA CHAUHAN [facility] [id number] [facility] 2022-10-06 00:00:00 2022-10-06 00:00:00 Refill Quiana [facility] 1.2840.114 350.1.13.10 4.2.7.2.686 [id number] [facility] 2022-09-20 16:30:00 2022-09-20 16:30:00 Office Visit Harmony Araya [facility] [place] [facility] 1.284.114 350.1.13.10 4.2.7.2.686 [id number] 134 [id number] [facility] 2022-09-20 16:30:00 2022-09-20 16:24:20 Outpatient R QUIANA HARMONY [facility] [id number] [facility] 2022-09-20 00:00:00 2022-09-20 00:00:00 Patient Secure Msg Case, Debby Cardenas [facility] 1.2.840.114 350.1.13.10 4.2.7.2.686 [id number] 134 [id number] [facility] 2022-09-20 00:00:00 2022-09-20 00:00:00 Case Management Quiana Harmony [facility] 1.2.840.114 350.1.13.10 4.2.7.2.686 [id number] 134 [id number] [facility] 2022-09-13 16:30:00 2022-09-13 16:30:00 Office Visit Quiana Harmony [facility] 1.2.840.114 350.1.13.10 4.2.7.2.686 [id number] 134 [id number] [facility] 2022-09-13 16:30:00 2022-09-13 10:45:24 Outpatient R HARMONY ARAYA [facility] [id number] [facility] 2022-09-13 00:00:00 2022-09-13 00:00:00 Letter (Out) Quiana Harmony [facility] 1.2.840.114 350.1.13.10 4.2.7.2.686 [id number] 134 [id number] [facility] 2022-08-11 14:40:00 2022-08-11 15:00:00 Urgent Care Alonso Ames Unknown, Attending [facility] 1.2.840.114 350.1.13.10 4.2.7.2.686 [id number] [facility] 2022-08-11 14:40:00 2022-08-11 14:40:00 Outpatient R HILARYIVONNE BennettGREER [facility] [id number] [facility] 2022-08-11 00:00:00 2022-08-11 00:00:00 Letter (Out) Provider, Ang Db Urgent Care [facility] 1.2.840.114 350.1.13.10 4.2.7.2.686 [id number] [facility] 2022-07-25 08:00:00 2022-07-25 08:00:00 Outpatient KEVIN LANGLEY [facility] [id number] [facility] 2022-07-14 00:00:00 2022-07-14 00:00:00 Telephone Giuseppe MontanoHShawna [facility] 1..840.114 350.1.13.10 4.2.7.2.686 [id number] [facility] 2022-07-14 00:00:00 2022-07-14 00:00:00 Telephone Giuseppe MontanoHShawna [facility] 1.2.840.114 350.1.13.10 4.2.7.2.686 [id number] 059 [id number] [facility] 2022-07-13 08:19:00 2022-07-13 23:59:00 Hospital Encounter David Valdez BUILDING 1.2.840.114 350.1.13.10 4.2.7.2.686 [id number] [facility] 2022-07-13 00:00:00 2022-07-13 23:59:00 Outpatient DAVID ESCOTO [facility] [id number] [facility] 2022-07-13 00:00:00 2022-07-13 00:00:00 Giuseppe LiuYumikoShawna [facility] [place] [facility] 1.2.840.114 350.1.13.10 4.2.7.2.686 [id number] [id number] [facility] 2022-07-12 08:00:00 2022-07-12 08:23:14 Pediatric Assistant Visit 2, Adc Lab Giuseppe Montano [facility] 1..840.114 350.1.13.10 4.2.7.2.686 [id number] [facility] 2022-07-12 08:00:00 2022-07-12 08:00:00 Outpatient GIUSEPPE CRUZ [facility] [id number] [facility] 2022-06-20 00:00:00 2022-06-20 00:00:00 Case Management Helen Ugalde [facility] 1..840.114 350.1.13.10 4.2.7.2.686 [id number] [facility] 2022-06-17 13:15:00 2022-06-17 13:15:00 Outpatient GOKUL FONSECA [facility] [id number] [facility] 2022-06-17 13:15:00 2022-06-17 13:15:00 Pediatric Assistant Visit 2, Adc Lab Gokul Persaud [facility] 1.2.840.114 350.1.13.10 4.2.7.2.686 [id number] [facility] 2022-06-17 00:00:00 2022-06-17 00:00:00 Orders Only Doctor Unassigned, [place] [facility] 1.2.840.114 350.1.13.10 4.2.7.2.686 [id number] [facility] 2022-06-02 00:00:00 2022-06-02 00:00:00 Telephone Christopher, Josh M [facility] [place] [facility] 1.2840.114 350.1.13.10 4.2.7.2.686 [id number] 044 [id number] [facility] 2022-06-01 09:30:00 2022-06-01 09:30:00 Outpatient R ANDRES GARZON YU [facility] [id number] [facility] 2022-05-31 00:00:00 2022-05-31 00:00:00 Patient Secure Msg Christopher, Josh M [facility] [place] [facility] 1.2840.114 350.1.13.10 4.2.7.2.686 [id number] 044 [id number] [facility] 2022-05-31 00:00:00 2022-05-31 00:00:00 Case Management Helen Ugadle [facility] [place] [facility] 1.2840.114 350.1.13.10 4.2.7.2.686 [id number] 044 [id number] [facility] 2022-05-31 00:00:00 2022-05-31 00:00:00 Gokul Medely [facility] [place] [facility] 1.2840.114 350.1.13.10 4.2.7.2.686 [id number] 044 [id number] [facility] 2022-05-19 15:00:00 2022-05-19 15:15:00 Laboratory Only Only, Adc Pob2 Test Merritt Pettit [facility] [place] [facility] 1.2840.114 350.1.13.10 4.2.7.2.686 [id number] [facility] 2022-05-19 15:00:00 2022-05-19 14:09:59 Outpatient R MERRITT PETTIT [facility] [id number] [facility] 2022-05-13 14:20:00 2022-05-13 14:31:56 Outpatient R GOKUL PERSAUD [facility] [id number] [facility] 2022-05-13 14:20:00 2022-05-13 14:31:56 [facility] 1.2.840.114 350.1.13.10 4.2.7.2.686 [id number] [id number] [facility] 2022-05-13 14:20:00 2022-05-13 14:31:56 Outpatient R GOKUL PERSAUD [facility] [id number] [facility] 2022-05-06 13:30:00 2022-05-06 13:30:00 Outpatient R ELANA AGUIRRE [facility] [id number] [facility] 2022-04-01 10:15:00 2022-04-01 10:15:00 Outpatient R ROSS HANSEN [facility] [id number] [facility] 2022-03-31 11:00:00 2022-03-31 12:10:04 Outpatient R KEVIN PULIDO [facility] [id number] [facility] 2022-03-31 11:00:00 2022-03-31 12:10:04 Office Visit Kevin Pulido [facility] 1.2.840.114 350.1.13.10 4.2.7.2.686 [id number] [facility] 2022-03-31 11:00:00 2022-03-31 12:10:04 Outpatient R KEVIN PULIDO [facility] [id number] [facility] 2022-03-25 00:00:00 2022-03-25 00:00:00 Case Management Giuseppe Montano [facility] 1.2840.114 350.1.13.10 4.2.7.2.686 [id number] [facility] 2022-03-23 11:00:00 2022-03-23 11:00:00 Outpatient KEVIN LANGLEY [facility] [id number] [facility] 2022-03-23 00:00:00 2022-03-23 00:00:00 Refill Ashok Kevin [facility] 1..840.114 350.1.13.10 4.2.7.2.686 [id number] [facility] 2022-03-22 08:00:00 2022-03-22 08:15:00 Pediatric Assistant Visit 2, Adc Lab Giuseppe Montano [facility] 1.2.840.114 350.1.13.10 4.2.7.2.686 [id number] [facility] 2022-03-22 08:00:00 2022-03-22 08:00:00 Outpatient R GIUSEPPE MONTANO [facility] [id number] [facility] 2022-03-22 00:00:00 2022-03-22 00:00:00 Orders Only Doctor Unassigned, [place] [facility] 1.2840.114 350.1.13.10 4.2.7.2.686 [id number] [facility] 2022-03-17 00:00:00 2022-03-17 00:00:00 Refill Kevin Pulido [facility] BUILDING 1.2.840.114 350.1.13.10 4.2.7.2.686 [id number] 134 [id number] [facility] 2022-03-08 00:00:00 2022-03-08 00:00:00 Refill Giuseppe MontanoHShawna [facility] [place] [facility] 1.2.840.114 350.1.13.10 4.2.7.2.686 [id number] [id number] [facility] 2022-03-08 00:00:00 2022-03-08 00:00:00 Refill Giuseppe MontanoHShawna [facility] [place] [facility] 1.2.840.114 350.1.13.10 4.2.7.2.686 [id number] 059 [id number] [facility] 2022-03-07 00:00:00 2022-03-07 00:00:00 Patient Secure Msg White, Josh M [facility] [place] [facility] 1.2.840.114 350.1.13.10 4.2.7.2.686 [id number] [id number] [facility] 2022-03-05 00:00:00 2022-03-05 00:00:00 [place] Hui [facility] 1.2.840.114 350.1.13.10 4.2.7.2.686 [id number] [facility] 2022-03-03 17:40:00 2022-03-03 18:00:00 Urgent Care Erick [facility] 1.2.840.114 350.1.13.10 4.2.7.2.686 [id number] [facility] 2022-03-03 17:40:00 2022-03-03 17:55:20 Outpatient R ERICK ANN [facility] [id number] [facility] 2022-03-02 08:00:00 2022-03-02 08:00:00 Outpatient R [facility] [id number] [facility] 2022-02-17 15:15:00 2022-02-17 15:15:00 Outpatient Delma PULIDO KEVIN [facility] [id number] [facility] 2022-02-17 00:00:00 2022-02-17 00:00:00 Patient Secure Kevin Estrada [facility] [place] [facility] 1.2.840.114 350.1.13.10 4.2.7.2.686 [id number] 134 [id number] [facility] 2022-02-17 00:00:00 2022-02-17 00:00:00 Refill Fish, [place] [facility] 1.2840.114 350.1.13.10 4.2.7.2.686 [id number] 134 [id number] [facility] 2022-02-17 00:00:00 2022-02-17 00:00:00 Refill Fish, [place] [facility] 1.2840.114 350.1.13.10 4.2.7.2.686 [id number] [facility] 2022-02-08 00:00:00 2022-02-08 00:00:00 Telephone Giuseppe Montano [facility] [place] [facility] 1.2.840.114 350.1.13.10 4.2.7.2.686 [id number] [facility] 2022-02-07 11:00:00 2022-02-07 11:34:00 Outpatient N GIUSEPPE MONTANO [facility] [id number] [facility] 2022-01-20 08:30:00 2022-01-20 08:30:00 Outpatient KEVIN LANGLEY [facility] [id number] [facility] 2022-01-10 00:00:00 2022-01-10 00:00:00 Refill Fish, [place] [facility] 1.2840.114 350.1.13.10 4.2.7.2.686 [id number] [facility] 2021-12-01 16:00:00 2021-12-01 15:48:33 Outpatient R JOSE VELIZ [facility] [id number] [facility] 2021-12-01 13:20:00 2021-12-01 13:20:00 Outpatient R LEATHA DAVE [facility] [id number] [facility] 2021-11-05 00:00:00 2021-11-05 00:00:00 Telephone Giuseppe Montano [facility] 1.2.840.114 350.1.13.10 4.2.7.2.686 [id number] [facility] 2021-10-13 09:30:00 2021-10-13 09:30:00 Pediatric Assistant Visit Nurse, Kal Baeza [facility] 1..840.114 350.1.13.10 4.2.7.2.686 [id number] [facility] 2021-10-13 09:30:00 2021-10-13 08:06:28 Outpatient KAL FREEMAN [facility] [id number] [facility] 2021-10-07 13:00:00 2021-10-07 13:00:00 Outpatient R GIUSEPPE MONTANO [facility] [id number] [facility] 2021-10-07 00:00:00 2021-10-07 00:00:00 Patient Secure Msg Giuseppe Montano [facility] 1..840.114 350.1.13.10 4.2.7.2.686 [id number] [facility] 2021-09-09 16:20:00 2021-09-09 16:40:00 Nurse Visit Nurse, Kal Baeza [facility] 1..84.114 350.1.13.10 4.2.7.2.686 [id number] [facility] 2021-09-09 16:20:00 2021-09-09 16:39:23 Outpatient KAL FREEMAN [facility] [id number] [facility] 2021-08-31 00:00:00 2021-08-31 00:00:00 Hortensia Linares [facility] ONE 1..840.114 350.1.13.10 4.2.7.2.686 [id number] 044 [id number] [facility] 2021-08-31 00:00:00 2021-08-31 00:00:00 Patient Secure Msg Giuseppe Montano [facility] [place] [facility] 1..840.114 350.1.13.10 4.2.7.2.686 [id number] [id number] [facility] 2021-08-23 08:04:58 2021-08-23 23:59:00 Outpatient R ASHOK KEVIN [facility] [id number] [facility] 2021-08-23 08:00:00 2021-08-23 23:59:00 Hospital Encounter Kevin Pulido [facility] 1.840.114 350.1.13.10 4.2.7.2.686 [id number] [facility] 2021-07-26 00:00:00 2021-07-26 00:00:00 Letter (Out) Ashok Kevin [facility] BUILDING 1..84.114 350.1.13.10 4.2.7.2.686 [id number] 134 [id number] [facility] 2021-07-26 00:00:00 2021-07-26 00:00:00 Patient Secure Msg [facility] 1.2.840.114 350.1.13.10 4.2.7.2.686 [id number] 134 [id number] [facility] 2021-07-24 00:00:00 2021-07-24 00:00:00 Patient Secure Msg Doctor Unassigned, [place] [facility] 1.284.114 350.1.13.10 4.2.7.2.686 [id number] [facility] 2021-07-23 00:00:00 2021-07-23 00:00:00 Case Management Kevin Pulido [facility] 1.284.114 350.1.13.10 4.2.7.2.686 [id number] [facility] 2021-07-21 13:30:00 2021-07-21 14:34:26 Outpatient R PULIDO KEVIN [facility] [id number] [facility] 2021-07-21 13:05:17 2021-07-21 14:34:26 Office Visit Kevin Pulido [facility] Building 1.2.840.114 350.1.13.10 4.2.7.2.686 [id number] [facility] 2021-06-24 15:00:00 2021-06-24 15:00:00 Outpatient R GIUSEPPE MONTANO [facility] [id number] [facility] 2021-06-24 15:00:00 2021-06-24 15:00:00 Office Visit Giuseppe Montano [facility] [place] [facility] 1.2.840.114 350.1.13.10 4.2.7.2.686 [id number] [id number] [facility] 2021-06-24 15:00:00 2021-06-24 15:00:00 Office Visit Giuseppe Montano [facility] [place] [facility] 1.2.840.114 350.1.13.10 4.2.7.2.686 [id number] [facility] 2021-06-24 15:00:00 2021-06-24 13:51:15 Outpatient R DUSTY [facility] [id number] [facility] 2021-06-24 15:00:00 2021-06-24 13:51:15 Outpatient R MONTANO [facility] [id number] [facility] 2021-06-24 12:47:26 2021-06-24 13:51:15 Office Visit Giuseppe Montano MelissaShawna [facility] 1.2.840.114 350.1.13.10 4.2.7.2.686 [id number] [id number] [facility] 2021-06-22 00:00:00 2021-06-22 00:00:00 Orders Only Doctor Unassigned, [place] [facility] 1.2.840.114 350.1.13.10 4.2.7.2.686 [id number] [facility] 2021-06-18 16:11:08 2021-06-18 16:38:18 Nurse Visit Nurse, Jory Keyes [facility] 1.2840.114 350.1.13.10 4.2.7.2.686 [id number] [facility] 2021-06-18 09:20:00 2021-06-18 09:20:00 Outpatient R [facility] [id number] [facility] 2021-06-17 16:45:00 2021-06-17 16:45:00 Outpatient R MERRITT PETTIT [facility] [id number] [facility] 2021-06-17 08:18:26 2021-06-17 08:33:26 Laboratory Only Only, Adc Pob2 Test Merritt Pettit [facility] Building 1.2840.114 350.1.13.10 4.2.7.2.686 [id number] [facility] 2021-06-17 00:00:00 2021-06-17 00:00:00 Telephone Luma Mondragon [facility] 1.2840.114 350.1.13.10 4.2.7.2.686 [id number] [facility] 2021-05-28 00:00:00 2021-05-28 00:00:00 Letter (Out) Nuha Ayon [facility] 1.2.114 350.1.13.10 4.2.7.2.686 [id number] [id number] [facility] 2021-05-26 15:44:30 2021-05-26 16:50:40 Urgent [place] [facility]?Jeanne suarez [facility] Building 1.114 350.1.13.10 4.2.7.2.686 [id number] [facility] 2021-05-26 14:58:40 2021-05-26 15:13:40 Laboratory Only Only, Adc Pob2 Test Wilver Merritt Peterson [facility] Building 1.2840.114 350.1.13.10 4.2.7.2.686 [id number] [facility] 2021-05-26 15:00:00 2021-05-26 15:00:00 Outpatient R MERRITT PETTIT [facility] [id number] [facility] 2021-05-24 00:00:00 2021-05-24 00:00:00 Refill Citlalli Sheikh [facility] Building 1.2840.114 350.1.13.10 4.2.7.2.686 [id number] [facility] 2021-05-13 10:00:00 2021-05-13 10:00:00 Outpatient R [facility] [id number] [facility] 2021-05-13 08:02:19 2021-05-13 08:22:19 Nurse Visit Nurse, Lorena Cruz Jory [facility] 1.2.840.114 350.1.13.10 4.2.7.2.686 [id number] [facility] 2021-05-07 09:00:00 2021-05-07 09:00:00 Outpatient R CITLALLI SHEIKH [facility] [id number] [facility] 2021-05-04 09:08:24 2021-05-04 09:28:24 Nurse Visit Nurse, Flory Hays [facility] 1.2.840.114 350.1.13.10 4.2.7.2.686 [id number] [facility] 2021-05-04 09:20:00 2021-05-04 09:20:00 Outpatient R [facility] [id number] [facility] 2021-04-29 11:41:29 2021-04-29 11:45:38 Nurse Visit Nurse, Lorena Cruz [facility] 1.2.840.114 350.1.13.10 4.2.7.2.686 [id number] [facility] 2021-04-29 11:20:00 2021-04-29 11:20:00 Outpatient R [facility] [id number] [facility] 2021-03-29 15:00:00 2021-03-29 15:00:00 Outpatient R [facility] [id number] [facility] 2021-03-09 00:00:00 2021-03-09 00:00:00 Telephone Team, [facility] 1.20.114 350.1.13.10 4.2.7.2.686 [id number] [facility] 2021-01-28 00:00:00 2021-01-28 00:00:00 [facility] 1.2840.114 350.1.13.10 4.2.7.2.686 [id number] [facility] 2021-01-26 00:00:00 2021-01-26 00:00:00 Refill AdCitlalli butt [facility] 1.20.114 350.1.13.10 4.2.7.2.686 [id number] [facility] 2021-01-21 16:50:00 2021-01-21 16:50:00 Outpatient MERRITT PITTMAN [facility] [id number] [facility] 2021-01-20 16:50:00 2021-01-20 16:50:00 Outpatient CLIFF ESCOBAR [facility] [id number] [facility] 2021-01-06 00:00:00 2021-01-06 00:00:00 Telephone Sawyer Erin [facility] 1.20.114 350.1.13.10 4.2.7.2.686 [id number] [facility] 2021-01-05 15:29:12 2021-01-05 15:32:26 Pediatric Assistant Visit Lab, Jory Keyes [facility] 1.2.840.114 350.1.13.10 4.2.7.2.686 [id number] [facility] 2021-01-05 11:45:00 2021-01-05 11:45:00 Outpatient R [facility] [id number] [facility] 2020-12-17 13:00:00 2020-12-17 13:00:00 Outpatient HOUSTON MILLER [facility] [id number] [facility] 2020-11-21 00:00:00 2020-11-21 00:00:00 Telephone Ami Irizarry [facility] 1.840.114 350.1.13.10 4.2.7.2.686 [id number] [facility] 2020-11-20 13:00:00 2020-11-20 13:00:00 Outpatient HOUSTON MILLER [facility] [id number] [facility] 2020-11-19 15:19:22 2020-11-19 15:19:40 Pediatric Assistant Visit Lab, Flory Hays [facility] 1..114 350.1.13.10 4.2.7.2.686 [id number] [facility] 2020-11-19 11:45:00 2020-11-19 11:45:00 Outpatient FLORY MCKAY [facility] [id number] [facility] 2020-10-27 09:30:00 2020-10-27 09:30:00 Outpatient CITLALLI WELCH [facility] [id number] [facility] 2020-10-26 00:00:00 2020-10-26 00:00:00 Letter (Out) Nany, [facility] 1.2840.114 350.1.13.10 4.2.7.2.686 [id number] [facility] 2020-10-26 00:00:00 2020-10-26 00:00:00 Letter (Out) [facility] 1.2840.114 350.1.13.10 4.2.7.2.686 [id number] [facility] 2020-10-26 00:00:00 2020-10-26 00:00:00 Patient Secure Msg Doctor Unassigned, [place] [facility] 1.114 350.1.13.10 4.2.7.2.686 [id number] [facility] 2020-10-23 13:52:39 2020-10-23 14:07:39 Pediatric Assistant Visit Lab, Kal Baeza [facility] 1.114 350.1.13.10 4.2.7.2.686 [id number] [facility] 2020-10-23 08:00:00 2020-10-23 08:00:00 Outpatient Delma SHEIKH [facility] [id number] [facility] 2020-10-21 09:30:00 2020-10-21 09:30:00 Outpatient Delma SHEIKH CITLALLI [facility] [id number] [facility] 2020-10-20 13:10:00 2020-10-20 13:10:00 Outpatient CLIFF ESCOBAR [facility] [id number] [facility] 2020-10-06 00:00:00 2020-10-06 00:00:00 Telephone Vesta Murphy [facility] 1.114 350.1.13.10 4.2.7.2.686 [id number] [facility] 2020-10-05 09:44:03 2020-10-05 09:46:41 Pediatric Assistant Visit Lab, Alva Wesley [facility] 1.114 350.1.13.10 4.2.7.2.686 [id number] [facility] 2020-10-05 08:45:00 2020-10-05 08:45:00 Outpatient R [facility] [id number] [facility] 2020-09-29 14:44:29 2020-09-29 16:21:38 Urgent Care Provider, [facility] [address] 1.114 350.1.13.10 4.2.7.2.686 [id number] [facility] 2020-09-29 15:20:00 2020-09-29 15:20:00 Outpatient R [facility] [id number] [facility] 2020-09-28 12:48:48 2020-09-28 14:01:43 Nurse Visit Nurse, Kal Baeza [facility] 1.114 350.1.13.10 4.2.7.2.686 [id number] [facility] 2020-09-28 10:20:00 2020-09-28 10:20:00 Outpatient KAL FREEMAN [facility] [id number] [facility] 2020-09-22 14:25:00 2020-09-22 14:25:00 Outpatient CLIFF ESCOBAR [facility] [id number] [facility] 2020-09-02 00:00:00 2020-09-02 00:00:00 Orders Only Doctor Unassigned, [place] [facility] . 350.1.13.10 4.2.7.2.686 [id number] [facility] 2020-08-24 09:49:07 2020-08-24 10:48:02 Office Visit Hortensia Balderas [facility] [address] [facility] 1.114 350.1.13.10 4.2.7.2.686 [id number] [id number] [facility] 2020-08-24 10:30:00 2020-08-24 10:30:00 Outpatient HORTENSIA MELISSA [facility] [id number] [facility] 2020-08-13 02:30:00 2020-08-15 04:36:00 Hospital Encounter Keagan Vargas Carlos Adrian [facility] 1.2.840.114 350.1.13.10 4.2.7.2.686 [id number] [facility] 2020-08-07 15:46:11 2020-08-07 16:06:11 Nurse Visit NurseLorena Lee [facility] 1.2840.114 350.1.13.10 4.2.7.2.686 [id number] [facility] 2020-08-07 10:50:00 2020-08-07 10:50:00 Outpatient R [facility] [id number] [facility] 2020-08-03 11:50:22 2020-08-03 11:50:35 Nurse Visit NurseLorena Peter [facility] 1.2840.114 350.1.13.10 4.2.7.2.686 [id number] [facility] 2020-08-03 11:20:00 2020-08-03 11:20:00 Outpatient R GOKUL PERSAUD [facility] [id number] [facility] 2020-07-31 09:35:08 2020-07-31 10:16:50 Nurse Visit NurseLorena Lee [facility] 1.2840.114 350.1.13.10 4.2.7.2.686 [id number] [facility] 2020-07-31 09:35:08 2020-07-31 10:16:50 Nurse Visit Lorena Harrell [facility] 1.2840.114 350.1.13.10 4.2.7.2.686 [id number] 2020-07-31 08:40:00 2020-07-31 08:40:00 Outpatient R [facility] [id number] [facility] 2020-07-02 00:00:00 2020-07-02 00:00:00 Orders Only Doctor Unassigned, [place] [facility] 1.2.840.114 350.1.13.10 4.2.7.2.686 [id number] [facility] 2020-07-02 00:00:00 2020-07-02 00:00:00 Orders Only Doctor Unassigned, [place] [facility] 1.2.840.114 350.1.13.10 4.2.7.2.686 [id number] 2020-07-01 00:00:00 2020-07-01 00:00:00 Telephone Flory Nagy [facility] 1.2.840.114 350.1.13.10 4.2.7.2.686 [id number] [facility] 2020-07-01 00:00:00 2020-07-01 00:00:00 Telephone Flory Nagy [facility] 1.2.840.114 350.1.13.10 4.2.7.2.686 [id number] 2020-06-29 14:51:11 2020-06-29 16:24:52 Nurse Visit NurseLorena Amy C [facility] 1.2.840.114 350.1.13.10 4.2.7.2.686 [id number] [facility] 2020-06-29 14:51:11 2020-06-29 16:24:52 Nurse Visit NurseLorena [facility] 1.2.840.114 350.1.13.10 4.2.7.2.686 [id number] 2020-06-29 10:50:00 2020-06-29 10:50:00 Outpatient R [facility] [id number] [facility] 2020-06-29 00:00:00 2020-06-29 00:00:00 Refill Lorenza Pearson [facility] Office Building [facility] 1.0.114 350.1.13.10 4.2.7.2.686 [id number] [facility] 2020-06-29 00:00:00 2020-06-29 00:00:00 Refill Lorenza Pearson [facility] Office Building One 1.114 350.1.13.10 4.2.7.2.686 [id number] [id number] 2020-06-23 16:11:55 2020-06-23 16:26:55 Pediatric Assistant Visit Lab, Kal Baeza [facility] 1..114 350.1.13.10 4.2.7.2.686 [id number] [facility] 2020-06-23 11:15:00 2020-06-23 11:15:00 Outpatient R [facility] [id number] [facility] 2020-06-19 00:00:00 2020-06-19 00:00:00 Refill Lorenza Pearson [facility] Office Building One 1.114 350.1.13.10 4.2.7.2.686 [id number] [facility] 2020-06-12 11:03:51 2020-06-12 16:29:23 Office Visit Gokul Persaud [facility] [place] [facility] 1..114 350.1.13.10 4.2.7.2.686 [id number] [facility] 2020-06-12 11:00:00 2020-06-12 11:00:00 Outpatient R GOKUL PERSAUD [facility] [id number] [facility] 2020-06-05 15:40:00 2020-06-05 15:40:00 Outpatient R GOKUL PERSAUD [facility] [id number] [facility] 2020-06-05 13:41:38 2020-06-05 14:38:52 Office Visit Gokul Persaud [facility] Building 1.20.114 350.1.13.10 4.2.7.2.686 [id number] [facility] 2020-06-05 13:40:00 2020-06-05 13:40:00 Outpatient R GOKUL PERSAUD [facility] [id number] [facility] 2020-06-03 13:08:01 2020-06-03 23:59:00 Hospital Encounter Gokul Persaud [facility] 1.0.114 350.1.13.10 4.2.7.2.686 [id number] [facility] 2020-06-03 12:51:08 2020-06-03 13:11:08 Laboratory Only Lab, Adc Fam Pob Lorenza Wells [facility] Office Building One 1.114 350.1.13.10 4.2.7.2.686 [id number] [facility] 2020-06-03 13:00:00 2020-06-03 13:00:00 Outpatient R LORENZA PEARSON [facility] [id number] [facility] 2020-06-03 00:00:00 2020-06-03 00:00:00 Orders Only Doctor Unassigned, [place] [facility] 1.0.114 350.1.13.10 4.2.7.2.686 [id number] [facility] 2020-06-02 00:00:00 2020-06-02 00:00:00 Patient Secure Msg Gokul Persaud [facility] Building 1.20.114 350.1.13.10 4.2.7.2.686 [id number] [facility] 2020-05-29 12:21:14 2020-05-29 13:01:14 Telemedici ne Visit Gokul Persaud [facility] Building 1.114 350.1.13.10 4.2.7.2.686 [id number] [id number] [facility] 2020-05-29 13:00:00 2020-05-29 13:00:00 Outpatient R GOKUL PERSAUD [facility] [id number] [facility] 2020-05-27 00:00:00 2020-05-27 00:00:00 Telephone Lorenza Pearson [facility] Office Building One 1.114 350.1.13.10 4.2.7.2.686 [id number] [facility] 2020-05-22 15:39:16 2020-05-22 23:59:00 Hospital Encounter Lorenza Pearson [facility] 1.114 350.1.13.10 4.2.7.2.686 [id number] [facility] 2020-05-22 14:48:51 2020-05-22 16:12:53 Urgent Care Pob1, Acute Care Clinic Faiza Jansenthia [facility] Office Building One 1.114 350.1.13.10 4.2.7.2.686 [id number] [facility] 2020-05-22 15:00:00 2020-05-22 15:00:00 Outpatient R GI JANSEN [facility] [id number] [facility] 2020-05-20 00:00:00 2020-05-20 00:00:00 Refill Erick Ann [facility] Office Building One 1.114 350.1.13.10 4.2.7.2.686 [id number] [facility] 2020-05-09 14:00:00 2020-05-09 14:00:00 Outpatient R GI JANSEN [facility] [id number] [facility] 2020-05-09 13:04:32 2020-05-09 13:24:32 Laboratory Only Lab, [facility] 1.114 350.1.13.10 4.2.7.2.686 [id number] [facility] 2020-05-09 00:00:00 2020-05-09 00:00:00 Telephone Alonso Ames [facility] Office Building One 1.114 350.1.13.10 4.2.7.2.686 [id number] [facility] 2020-05-05 13:12:18 2020-05-05 23:59:00 Hospital Encounter AdCitlalli butt [facility] 1..114 350.1.13.10 4.2.7.2.686 [id number] [facility] 2020-05-05 14:01:07 2020-05-05 15:21:05 Office Visit AdCitlalli butt [facility] Building 1.2114 350.1.13.10 4.2.7.2.686 [id number] [facility] 2020-05-05 14:30:00 2020-05-05 14:30:00 Outpatient R CITLALLI SHEIKH [facility] [id number] [facility] 2020-05-04 00:00:00 2020-05-04 00:00:00 Telephone Giuseppe Montano [facility] Building 1.114 350.1.13.10 4.2.7.2.686 [id number] [facility] 2020-05-03 00:00:00 2020-05-03 00:00:00 Telephone Josh White [facility] 1.2.114 350.1.13.10 4.2.7.2.686 [id number] [facility] 2020-05-03 00:00:00 2020-05-03 00:00:00 Letter (Out) Nuha Ayon [facility] 1.20.114 350.1.13.10 4.2.7.2.686 [id number] [facility] 2020-05-03 00:00:00 2020-05-03 00:00:00 Patient Secure Msg Doctor Unassigned, [place] [facility] 1.0.114 350.1.13.10 4.2.7.2.686 [id number] [facility] 2020-05-02 13:01:37 2020-05-02 13:21:37 Laboratory Only Lab, [facility] 1..114 350.1.13.10 4.2.7.2.686 [id number] [id number] [facility] 2020-05-02 13:00:00 2020-05-02 13:00:00 Outpatient GI FISCHER [facility] [id number] [facility] 2020-04-30 07:58:13 2020-04-30 08:18:13 [facility] 1.114 350.1.13.10 4.2.7.2.686 [id number] [facility] 2020-04-30 08:00:00 2020-04-30 08:00:00 Outpatient GI FISCHER [facility] [id number] [facility] 2020-04-28 13:37:53 2020-04-28 14:47:52 Urgent Care Provider, [facility] Gi Jansen [facility] Office Building One 1.2840.114 350.1.13.10 4.2.7.2.686 [id number] [facility] 2020-04-28 13:40:00 2020-04-28 13:40:00 Outpatient R GI JANSEN [facility] [id number] [facility] 2020-04-22 10:06:01 2020-04-24 09:48:57 Pediatric Assistant Visit Lab, Kal Baeza [facility] 1.2840.114 350.1.13.10 4.2.7.2.686 [id number] [facility] 2020-04-24 00:00:00 2020-04-24 00:00:00 Case Management Addaquan Citlalli Gerard [facility] Building 1.2.840.114 350.1.13.10 4.2.7.2.686 [id number] [facility] 2020-04-24 00:00:00 2020-04-24 00:00:00 Patient Secure Msg Addaquan Citlalli Gerard [facility] Building 1.2.840.114 350.1.13.10 4.2.7.2.686 [id number] [facility] 2020-04-22 10:15:00 2020-04-22 10:15:00 Outpatient R [facility] [id number] [facility] 2020-04-21 15:50:33 2020-04-21 17:02:58 Office Visit Kori Citlalli Gerard [facility] Building 1.2840.114 350.1.13.10 4.2.7.2.686 [id number] [facility] 2020-04-21 16:00:00 2020-04-21 16:00:00 Outpatient R CITLALLI SHEIKH [facility] [id number] [facility] 2020-04-07 11:15:00 2020-04-07 11:15:00 Outpatient R CITLALLI SHEIKH [facility] [id number] [facility] 2020-04-02 00:00:00 2020-04-02 00:00:00 Patient Secure Msg Doctor Unassigned, [place] [facility] 1.114 350.1.13.10 4.2.7.2.686 [id number] [facility] 2020-04-01 11:38:45 2020-04-01 11:58:45 Laboratory Only Lab, [facility] Fam Pob Sarah Conner [facility] Office Building One 1. 350.1.13.10 4.2.7.2.686 [id number] [facility] 2020-04-01 11:20:00 2020-04-01 11:20:00 Outpatient R SARAH MAHMOOD [facility] [id number] [facility] 2020-03-25 08:25:07 2020-03-25 08:45:07 Laboratory Only Lab, Adc Fam Jaradb Lorenza Wells [facility] Office Building One . 350.1.13.10 4.2.7.2.686 [id number] [facility] 2020-03-25 08:40:00 2020-03-25 08:40:00 Outpatient R LORENZA PEARSON [facility] [id number] [facility] 2020-03-25 00:00:00 2020-03-25 00:00:00 Orders Only Doctor Unassigned, [place] [facility] .114 350.1.13.10 4.2.7.2.686 [id number] [facility] 2020-03-24 11:19:39 2020-03-24 11:38:34 Nurse Visit Nurse, Kal Baeza [facility] 1.2.840.114 350.1.13.10 4.2.7.2.686 [id number] [facility] 2020-03-24 10:40:00 2020-03-24 10:40:00 Outpatient R [facility] [id number] [facility] 2020-03-24 00:00:00 2020-03-24 00:00:00 Case Management Helen Ugalde [facility] 1.2.840.114 350.1.13.10 4.2.7.2.686 [id number] [facility] 2020-03-16 00:00:00 2020-03-16 00:00:00 Case Management Helen Ugalde [facility] 1.2.840.114 350.1.13.10 4.2.7.2.686 [id number] [facility] 2020-03-13 09:16:34 2020-03-13 09:16:49 Nurse Visit Nurse, Helen Bermudez [facility] 1.2.840.114 350.1.13.10 4.2.7.2.686 [id number] [facility] 2020-03-13 09:00:00 2020-03-13 09:00:00 Outpatient R HELEN UGALDE [facility] [id number] [facility] 2020-02-06 00:00:00 2020-02-06 00:00:00 Telephone Lorenza Pearson [facility] 1.2.840.114 350.1.13.10 4.2.7.2.686 [id number] [facility] 2020-02-05 09:52:24 2020-02-05 10:09:44 Urgent Care Pob1, Acute Care Clinic Gokul Persaud Leslie A [facility] Office Building One 1..840.114 350.1.13.10 4.2.7.2.686 [id number] [facility] 2020-02-05 10:00:00 2020-02-05 10:00:00 Outpatient R GOKUL PERSAUD [facility] [id number] [facility] 2020-01-23 13:30:00 2020-01-23 13:30:00 Outpatient R KEVIN PULIDO [facility] [id number] [facility] 2019-12-25 18:00:00 2019-12-25 18:00:00 Outpatient R UNKNOWN, ATTENDING [facility] [id number] [facility] 2019-12-20 00:00:00 2019-12-20 00:00:00 Refill Kevin Pulido [facility] Building 1..840.114 350.1.13.10 4.2.7.2.686 [id number] 134 [id number] [facility] 2019-12-20 00:00:00 2019-12-20 00:00:00 Patient Secure Msg Kevin Pulido [facility] Building 1..840.114 350.1.13.10 4.2.7.2.686 [id number] [facility] 2019-12-19 00:00:00 2019-12-19 00:00:00 Refill Kevin Pulido [facility] Building 1..840.114 350.1.13.10 4.2.7.2.686 [id number] 134 [id number] [facility] 2019-09-13 00:00:00 2019-09-13 00:00:00 Patient Secure Msg Doctor Unassigned, [place] [facility] Building 1.2.840.114 350.1.13.10 4.2.7.2.686 [id number] [facility] 2019-05-16 08:24:54 2019-05-16 23:59:00 Hospital Encounter MacBeth-Gi Duque [facility] 1.84114 350.1.13.10 4.2.7.2.686 [id number] [facility] 2019-05-09 00:00:00 2019-05-09 00:00:00 Orders Only Doctor Unassigned, [place] [facility] 1.84.114 350.1.13.10 4.2.7.2.686 [id number] [facility] 2019-05-06 00:00:00 2019-05-06 00:00:00 Refill Kevin Pulido [facility] [place] [facility] 1.840.114 350.1.13.10 4.2.7.2.686 [id number] [facility] Results Test Description Test Time Test Comments Results Result Co mments Source [facility] Urinalysis w/o Specific [id number] 16:46:00* Test Item Value Reference Range Interpretation Comme nts POCT PH U (test code = 3254) 5 mg/dl 5-8 POCT U LEUK EST (test code = 3263) negative Negative - Negative POCT U NIT (test code = 3262) negative Negative - Negative POCT U PROT (test code = 3259) trace Negative - Negative POCT U GLU (test code = 3256) 500 Negative - Negative POCT U KETONE (test code = 3258) negative Negative - Negative POCT U BLD (test code = 3257) 50 Negative - Negative ROSS (test code = ROSS) accurate developme nt and interpretation of all internal controls Lab Interpretation (test code = 34838-1) Normal [facility] SARS-COV-2 ANTIGEN (BINAX NOW)2023-08-07 19:08:00* Test Item Value Reference Range Interpretation Comme nts POCT SARS-COV-2 ANTIGEN (khadar t code = 26330-8) Positive Not Detected A On board controls acceptable with C Line (test code = 3574) Yes Lab Interpretation (test cod e = 12416-0) Abnormal [facility] SARS-COV-2 ANTIGEN (BINAX NOW)2023-08-04 19:46:00* Test Item Value Reference Range Interpretation Comme nts POCT SARS-COV-2 ANTIGEN (khadar t code = 45211-7) Positive Not Detected A On board controls acceptable with C Line (test code = 3574) Yes Lab Interpretation (test cod e = 38567-0) Abnormal [facility] URINALYSIS W SPECIFIC [id number] 21:20:00* Test Item Value Reference Range Interpretation Comme nts POCT U SP GRAV (test code = 3255) 1.020 mg/dl 1.005-1.025 POCT PH U (test code = 3254) 5 mg/dl 5-8 POCT U LEUK EST (test code = 3263) trace Negative - Negative POCT U NIT (test code = 3262) negative Negative - Negati ve POCT U PROT (test code = 3259) negative Negative - Negative POCT U GLU (test code = 3256) 1000 Negative - Negati ve POCT U KETONE (test code = 3258) negative Negative - Negative POCT U UROBILI (test code = 3260) normal 0.2-1 POCT U BILI (test code = 3261) negative Negative - Negative POCT U BLD (test code = 3257) negative Negative - Negati ve POCT U COLOR (test code = 3266) yellow POCT U APPEAR (test code = 3267) clear [facility] URINALYSIS W SPECIFIC [id number] 21:20:00* Test Item Value Reference Range Interpretation Comme nts POCT U SP GRAV (test code = 3255) 1.020 mg/dl 1.005-1.025 POCT PH U (test code = 3254) 5 mg/dl 5-8 POCT U LEUK EST (test code = 3263) trace Negative - Negative POCT U NIT (test code = 3262) negative Negative - Negati ve POCT U PROT (test code = 3259) negative Negative - Negative POCT U GLU (test code = 3256) 1000 Negative - Negati ve POCT U KETONE (test code = 3258) negative Negative - Negative POCT U UROBILI (test code = 3260) normal 0.2-1 POCT U BILI (test code = 3261) negative Negative - Negative POCT U BLD (test code = 3257) negative Negative - Negati ve POCT U COLOR (test code = 3266) yellow POCT U APPEAR (test code = 3267) clear [facility] SARS-COV-2 ANTIGEN (BINAX NOW)2023-03-24 23:56:00* Test Item Value Reference Range Interpretation Comme nts POCT SARS-COV-2 ANTIGEN (khadar t code = 06062-0) Not Detected Not Detected On board controls acceptable with C Line (test code = 3574) Yes Lab Interpretation (test cod e = 65679-5) Normal [facility] MOLECULAR [id number] 22:28:51* Test Item Value Reference Range Interpretation Comme nts POCT Molecular Strep (test c ode = 78287-4) Negative Negative Lab Interpretation (test cod e = 04147-1) Normal [facility] MOLECULAR [id number] 22:28:51* Test Item Value Reference Range Interpretation Comme nts POCT Molecular Strep (test c ode = 61789-4) Negative Negative Lab Interpretation (test cod e = 12634-6) Normal [facility] URINALYSIS W SPECIFIC [id number] 16:56:00* Test Item Value Reference Range Interpretation Comme nts POCT U SP GRAV (test code = 3255) 1.020 mg/dl 1.005-1.025 POCT PH U (test code = 3254) 5 mg/dl 5-8 POCT U LEUK EST (test code = 3263) Trace Negative - Negative POCT U NIT (test code = 3262) Negative Negative - Negati ve POCT U PROT (test code = 3259) Negative Negative - Negative POCT U GLU (test code = 3256) Positive Negative - Negati ve POCT U KETONE (test code = 3258) Negative Negative - Negative POCT U UROBILI (test code = 3260) 0.2 mg/dl 0.2-1 POCT U BILI (test code = 3261) Negative Negative - Negative POCT U BLD (test code = 3257) Negative Negative - Negati ve POCT U COLOR (test code = 3266) Straw POCT U APPEAR (test code = 3267) Cloudy Lab Interpretation (test cod e = 50292-0) Abnormal [facility] URINALYSIS W SPECIFIC [id number] 16:56:00* Test Item Value Reference Range Interpretation Comme nts POCT U SP GRAV (test code = 3255) 1.020 mg/dl 1.005-1.025 POCT PH U (test code = 3254) 5 mg/dl 5-8 POCT U LEUK EST (test code = 3263) Trace Negative - Negative POCT U NIT (test code = 3262) Negative Negative - Negati ve POCT U PROT (test code = 3259) Negative Negative - Negative POCT U GLU (test code = 3256) Positive Negative - Negati ve POCT U KETONE (test code = 3258) Negative Negative - Negative POCT U UROBILI (test code = 3260) 0.2 mg/dl 0.2-1 POCT U BILI (test code = 3261) Negative Negative - Negative POCT U BLD (test code = 3257) Negative Negative - Negati ve POCT U COLOR (test code = 3266) Straw POCT U APPEAR (test code = 3267) Cloudy Lab Interpretation (test cod e = 37420-7) Abnormal [facility] URINALYSIS W SPECIFIC [id number] 16:56:00* Test Item Value Reference Range Interpretation Comme nts POCT U SP GRAV (test code = 3255) 1.020 mg/dl 1.005-1.025 POCT PH U (test code = 3254) 5 mg/dl 5-8 POCT U LEUK EST (test code = 3263) Trace Negative - Negative POCT U NIT (test code = 3262) Negative Negative - Negati ve POCT U PROT (test code = 3259) Negative Negative - Negative POCT U GLU (test code = 3256) Positive Negative - Negati ve POCT U KETONE (test code = 3258) Negative Negative - Negative POCT U UROBILI (test code = 3260) 0.2 mg/dl 0.2-1 POCT U BILI (test code = 3261) Negative Negative - Negative POCT U BLD (test code = 3257) Negative Negative - Negati ve POCT U COLOR (test code = 3266) Straw POCT U APPEAR (test code = 3267) Cloudy Lab Interpretation (test cod e = 17506-6) Abnormal [facility] URINALYSIS W SPECIFIC [id number] 16:56:00* Test Item Value Reference Range Interpretation Comme nts POCT U SP GRAV (test code = 3255) 1.020 mg/dl 1.005-1.025 POCT PH U (test code = 3254) 5 mg/dl 5-8 POCT U LEUK EST (test code = 3263) Trace Negative - Negative POCT U NIT (test code = 3262) Negative Negative - Negati ve POCT U PROT (test code = 3259) Negative Negative - Negative POCT U GLU (test code = 3256) Positive Negative - Negati ve POCT U KETONE (test code = 3258) Negative Negative - Negative POCT U UROBILI (test code = 3260) 0.2 mg/dl 0.2-1 POCT U BILI (test code = 3261) Negative Negative - Negative POCT U BLD (test code = 3257) Negative Negative - Negati ve POCT U COLOR (test code = 3266) Straw POCT U APPEAR (test code = 3267) Cloudy Lab Interpretation (test cod e = 27440-2) Abnormal [facility] URINALYSIS W/O SPECIFIC [id number] 16:43:00* Test Item Value Reference Range Interpretation Comme nts POCT PH U (test code = 3254) 5 mg/dl 5-8 POCT U LEUK EST (test code = 3263) ++ Negative - Negative POCT U NIT (test code = 3262) Negative Negative - Negati ve POCT U PROT (test code = 3259) Negative Negative - Negat meg POCT U GLU (test code = 3256) Negative - Negati ve POCT U KETONE (test code = 3258) Negative Negative - Neg ative POCT U BLD (test code = 3257) Negative - Negati ve [facility] URINALYSIS W/O SPECIFIC [id number] 16:43:00* Test Item Value Reference Range Interpretation Comme nts POCT PH U (test code = 3254) 5 mg/dl 5-8 POCT U LEUK EST (test code = 3263) ++ Negative - Negative POCT U NIT (test code = 3262) Negative Negative - Negati ve POCT U PROT (test code = 3259) Negative Negative - Negat meg POCT U GLU (test code = 3256) Negative - Negati ve POCT U KETONE (test code = 3258) Negative Negative - Neg ative POCT U BLD (test code = 3257) Negative - Negati ve [facility] MOLECULAR [id number] 21:41:44* Test Item Value Reference Range Interpretation Comme nts POCT Molecular Strep (test c ode = 47349-1) Negative Negative Lab Interpretation (test cod e = 44871-9) Normal [facility] SARS-COV-2 ANTIGEN (BINAX NOW)2022-08-11 21:35:00* Test Item Value Reference Range Interpretation Comme nts POCT SARS-COV-2 ANTIGEN (test code = 75545-1) Not Detected Not Detected On board controls acceptable with C Line (test code = 3574) Yes ROSS (test code = ROSS) accurate developme nt and interpretation of all internal controls Lab Interpretation (test code = 78372-2) Normal [facility] MOLECULAR [id number] 21:33:35* Test Item Value Reference Range Interpretation Comme nts POCT Molecular FluA (test co de = 74315-9) Negative Negative POCT Molecular FluB (test co de = 51126-2) Negative Negative Lab Interpretation (test cod e = 42434-2) Normal [facility] Notes Date/Time Note Provider Source 2024-05-28 14:18:23 LILLIAN submitted, waiting for determination. [facility] 2024-05-28 13:48:07 Images from the original note were not included. Therese Barrow [facility] 2024-05-24 09:30:55 MUST BE SEEN FOR FURTHER REFILLS Recent Visits Date Type Provider Dept 01/15/24 Office Visit Сергей Morrison NP [facility] Family Medicine 10/06/23 Office Visit Vitaliy Jewell MD [facility] Endocrinology 04/28/23 Office Visit Сергей Morrison NP [facility] 12/19/22 Office Visit Сергей Morrison NP [facility] Showing recent visits within past 540 days with a meds authorizing provider and meeting all other requirements Future Appointments No visits were found meeting these conditions. Showing future appointments within next 150 days with a meds authorizing provider and meeting all other requirements Leatha Yanes RN [facility] 2024-01-15 16:26:46 Images from the original note were not included. Changes Requested Name from pharmacy: TERCONAZOLE 0.8% CRE Will file in chart as: TERCONAZOLE 0.8 % vaginal cream Possible duplicate: Hover to review recent actions on this medication Sig: INSERT 1 APPLICATORFUL VAGINALLY AT BEDTIME Disp: 20 g Refills: 0 Start: 01/15/2024 Class: eRX For: Acute cystitis without hematuria Last ordered: Today (01/15/2024) by Сергей Morrison NP Rx #: [id number] Pharmacy comment: Conflict with other medication, disease or allergy. Provider Review Required Uqejju1101/15/2024 01:20 PM Protocol Details This refill cannot be delegated Valid encounter within last 12 months This request has changes from the previous prescription. To be filled at: [facility] [address] [place] [address] Routing to provider for review. Interaction/ allergies with patient. [facility] 2024-01-15 14:48:17 PA submitted, PA approved. T [facility] 2024-01-15 12:54:02 Images from the original note were not included. Antonia Yoder [facility] 2024-01-12 15:30:00 Images from the original note were not included. Patient has been identified by and name and was provided with cup, antiseptic towelette, and clean catch instructions. 1 urine specimen(s) sent. Unpreserved Urine Culture 1 Aptima tube Other urine T [facility] 2024-01-12 13:21:58 Patient has been informed of medication has been sent and UC ordered. Leatha Anderson MA [facility] 2024-01-12 13:15:32 Patient is requesting refill on chronic medication and have a urine culture placed. Patient finished antibiotic medication that was prescribed by her OBGYN. Patient is still being symptomatic and would like to have order placed. Last visit with OBGYN was 1 month ago Urine culture ordered 3 medications ordered [facility] 2024-01-12 12:37:07 Patient is requesting refill on chronic medication and have a urine culture placed. Patient finished antibiotic medication that was prescribed by her OBGYN. Patient is still being symptomatic and would like to have order placed. Leatha Anderson MA [facility] 2023-12-19 08:02:20 Images from the original note were not included. Requested Renewals ondansetron 4 mg disintegrating tablet Sig: Take 1 tablet by mouth every 8 (eight) hours as needed for Nausea and Vomiting (N/V). Disp: 30 tablet Refills: 01 Start: 12/18/2023 Class: eRX For: Nausea Last ordered: 4 months ago (08/04/2023) by Сергей Morrison NP Anti-nausea [id number]/18/2023 04:34 PM Protocol Details This refill cannot be delegated Manual Review: [facility] providers only allowed to refill requests. Valid encounter within last 12 months To be filled at: [address] 04-28-2023 NOV N/A Leatha Anderson MA [facility] 2023-11-13 11:21:22 Images from the original note were not included. Requested Renewals hydrOXYzine 25 mg tablet Sig: Take 1 tablet by mouth 3 (three) times daily as needed for Anxiety. Take 2 tablets nightly as needed for Insomnia Disp: 60 tablet Refills: 3 Start: 11/13/2023 Class: eRX For: Stress at home, Primary insomnia Last ordered: 6 months ago (04/28/2023) by Сергей Morrison NP Allergy: hydroxyzine [id number]/13/2023 11:06 AM Protocol Details Valid encounter within last 12 months Depression screening completed in the last 12 months To be filled at: [facility] [address] [place] [address] 04-28-2023 BONE MARROW TRANSPLANT Leatha Anderson MA [facility] 2023-11-13 09:57:15 Pt requesting refill of Acyclovir. Symptoms started yesterday. Pt has a [facility] appt on 03/14/2024. Refill sent. HELEN MCCARTNEY RN 11/13/2023 9:59 AM [facility] 2023-10-10 15:00:33 Corrected the prescription to reflect Vascepa 1 g 2 capsules twice daily. Does not need to take an extra dose of Vascepa in the lunchtime. [facility] 2023-10-09 09:39:22 LOVAZA, rxoeq-4-tcxq ethyl esters, 1 gram [id number] /9/2024--NoSig: Take 2 capsules by mouth in the morning and 2 capsules in the evening. Take with meals. Add one capsule at lunchSent to pharmacy as: omega-3 acid ethyl esters 1 gram capsuleClass: eRXRoute: OralOrder: [id number]/Time Signed: 10/03/2023 14:52E-Prescribing Status: Receipt confirmed by pharmacy (10/03/2023 2:52 PM [facility]) [facility] Chantale Arenas RN [facility] 2023-10-09 09:00:12 Amie Irizarry is a 47 year old female Pt calling needing LOVAZA, muggc-2-ismn ethyl esters, 1 gram capsule medication instructions confirmed so they are able to dispense it. Please call back and assist. [facility] [address] [place] [id number] [facility] Huyen Silverman [facility] 2023-10-02 08:29:12 [facility] 03/14/2024. [employer] M[employer]OW TR[employer]PL[employer] Ric Esquivel RN [facility] 2023-09-29 16:49:45 Amie Irizarry is a 47 year old female Cecil with [facility] [address] [place] [address] [facility] is notifying the clinic that the patient is allergic to terconazole 0.8 % vaginal cream. Please advise. Mcgowan [facility] 2023-09-29 16:20:49 Patient is asking for treatment for UTI UA and Culture done/Culture pending [employer] MARROW TRANSPLANT [facility] 2023-09-29 14:12:16 Patient is needing antibiotic for UTI and Cream for yeast. [employer] Leatha Anderson MA [facility] 2023-09-28 07:45:00 Images from the original note were not included. Venipuncture collection performed by clean technique on the right anticubitus. Total of 1 attempts were made. Slight pressure and a bandage/dressing were applied to the site(s). The patient experienced no complications. The following specimens were processed according to instructions and sent to [facility] laboratories per lab order on 09/28/2023 : LT BLUE SST 1 RED LAV 1 PPT DK GREEN (LiHep) DK GREEN (SodH) BARNES DK BLUE (K2) DK BLUE (S) ACD Blood Culture NIPT/NTD Patient has been identified by and name and was provided with cup, antiseptic towelette, and clean catch instructions. 2 urine specimen(s) sent. Unpreserved 1 Urine Culture 1 Aptima tube Other urine [employer] MARROW TRANSPLANT [facility] 2023-05-05 09:37:07 Formatting of this n ote might be different from the original. Spoke with patient, patient stated pharmacy never received the prescription for Snehal 2. Spoke with pharmacist and they never received the order. I went head and placed order again for patient. [facility] 2023-05-01 09:43:40 Formatting of this n ote might be different from the original. PA sent through covermeds, waiting for determination. Diclofenac Sodium 1 % gel - approved Jennifer Paul RN [facility] 2023-04-28 16:00:00 Formatting of this n ote is different from the original. Images from the original note were not included. Patient not fasting for labs. Avelina Lamas 04/28/2023 3:59 PM Venipuncture collection performed by clean technique on the left anticubitus. Total of 1 attempts were made. Slight pressure and a bandage/dressing were applied to the site(s). The patient experienced no complications. The following specimens were processed according to instructions and sent to [facility] laboratories per lab order on 04/28/2023 : LT BLUE SST 2 RED LAV 1 PPT DK GREEN (LiHep) DK GREEN (SodH) BARNES DK BLUE (K2) DK BLUE (S) ACD Blood Culture NIPT/NTD Avelina Lamas [facility] 2023-04-28 16:00:00 Formatting of this n ote might be different from the original. Discussed with patient. Improving triglyceride noted with lifestyle changes. Direct LDL elevated. CMP within acceptable limits. A1c elevated. Continue the current dose of fenofibrate 160 mg daily along with Lovaza 2 capsules twice daily. We will reassess repeat labs in 3 months time. If LDL still elevated, may have to consider starting Lipitor. [facility] 2023-04-28 16:00:00 Addended by: GIUSEPPE MONTANO on: 05/02/2023 08:46 PM Modules accepted: Orders [facility]
[2024-06-01] MEDS ORDERED: DIAZEPAM 5 MG TABLET ONE (04:44)
[2024-06-01] MEDS ORDERED: NA CHLORIDE 0.9% 2,000 ML ONE (04:44)
[2024-06-01 05:12] LABS: ALT/SGPT 37 U/L (13-56); AST/SGOT 18 U/L (15-37); Albumin 3.4 g/dL (3.4-5.0); Albumin/Globulin Ratio 0.8 (1.1-1.8); Alkaline Phosphatase 108 U/L (45-117); Anion Gap 11.7 mEq/L (5.0-15.0); BUN Blood Urea Nitrogen 19 mg/dL (7-18); Bicarbonate 25 mEq/L (21-32); Bilirubin Total 0.3 mg/dL (0.2-1.0); Globulin 4.2 g/dL (2.3-3.5); Glomerular Filtration Rate 80 ml/min (=/>90); Glucose Level 392 mg/dL (74-106); Magnesium 1.9 mg/dL (1.6-2.4); Potassium 3.7 mEq/L (3.5-5.1); Protein, Total 7.6 g/dL (6.4-8.2); Sodium Level 133 mEq/L (136-145)
[2024-06-01 05:31] LABS: Bilirubin Direct < 0.2 mg/dL (0-0.2); Bilirubin Indirect, Calculated 0.1 mg/dL (0.2-0.8)
[2024-06-01 05:32] LABS: Troponin High Sensitivity < 3.0 pg/mL (<58.9)
[2024-06-01 05:51] LABS: Absolute Basophils 0.1 K/uL (0-0.5); Absolute Eosinophils 0.1 K/uL (0-0.5); Absolute Monocytes 0.5 K/uL (0.1-1.3); Absolute Neutrophil 4.7 K/uL (1.8-8.0); Basophils % 0.9 % (0-1.3); Eosinophils % 0.6 % (0-4.4); Hematocrit 36.8 % (36.0-45.0); Lymphocytes % 48.3 % (15.3-44.8); MCH 29.3 pg (27.0-35.0); MCHC 33.6 g/dL (32.0-36.0); MCV 87.3 fL (80-100); Monocytes % 5.1 % (3.3-12.3); Neutrophils % 45.1 % (41.7-73.7); Nucleated Red Blood Cells % 0.3 % (0-0); RBC Red Blood Cell Count 4.21 M/uL (3.86-4.86); Red Cell Distribution Width 13.6 % (12.1-15.2)
[2024-06-01 05:52] LABS: Hemoglobin 12.3 g/dL (12.0-15.0)
[2024-06-01 05:53] LABS: MPV 8.6 fL (7.6-11.3); Platelets 289 thou/uL (152-406)
[2024-06-01 05:57] LABS: Protime INR 0.82
[2024-06-01 05:58] LABS: PT Prothrombin Time 9.2 SECONDS (9.4-12.5)
[2024-06-01 05:59] LABS: PTT, Activated Partial Thromb 35.4 SECONDS (24.3-36.9)
--- NOTE | 2024-06-01 07:27 | ER ---
Nurse's Notes [facility] Name: Amie Irizarry Age: 48 yrs Sex: Female : 1975 Arrival Date: 06/01/2024 Time: 04:07 Bed 5 Private MD: Diagnosis: Left arm pain, left arm numbness, left leg numbness, controlled diabetes type II with Hyperglycemia Presentation: 06/01 04:13 Chief complaint: Patient states: L arm weakness and L facial drooping that pt began to ss notice at 1999 yesterday evening. Pt reports she woke up and her symptoms were much worse. Coronavirus screen: Client denies travel out of the [place] in the last 14 days. Ebola Screen: Patient denies exposure to infectious person. Patient denies travel to an Ebola-affected area in the 21 days before illness onset. An acute neurological deficit is present. Pre-hospital glucose is not applicable to this patient. Initial Sepsis Screen: Does the patient meet any 2 criteria? No. Patient's initial sepsis screen is negative. Does the patient have a suspected source of infection? No. Patient's initial sepsis screen is negative. Risk Assessment: Do you want to hurt yourself or someone else? Patient reports no desire to harm self or others. Onset of symptoms was May 31, 2024 at 20:00. 04:13 Method Of Arrival: Ambulatory ss 04:13 Acuity: JOSÉ 2 ss Triage Assessment: 04:13 The onset of the patients symptoms was May 31, 2024 at 20:00. General: Appears ss uncomfortable, Behavior is calm, cooperative. Neuro: Level of Consciousness is awake, alert, obeys commands, Oriented to person, place, time, situation, Electronic Parts Designer are weak on left Weakness in left arm(s) Gait is steady, Speech is normal, Facial droop on left, Pupils are PERRLA, Intact. Respiratory: Airway is patent Respiratory effort is even, unlabored, Respiratory pattern is regular, symmetrical. Derm: Skin is intact, is healthy with good turgor, Skin is pink, warm \T\ dry. normal. Musculoskeletal: Range of motion: limited in left shoulder. Stroke Activation: Symptom onset > 6 hours Physician: ED Attending; Name: ; Notified At: ; Arrived At: Physician: Mid-Level Provider; Name: ; Notified At: ; Arrived At: Physician: [not used]; Name: ; Notified At: ; Arrived At: Physician: [not used]; Name: ; Notified At: ; Arrived At: Physician: [not used]; Name: ; Notified At: ; Arrived At: Historical: - Allergies: 04:27 Demerol; ss 04:27 Diflucan; ss - PMHx: 04:27 Diabetes - NIDDM; Hypertension; ss - Social history:: Patient/guardian denies using alcohol, street drugs, IV drugs, caffeine, over the counter diet medications, tobacco products. - Family history:: not pertinent. Screenin:13 [facility] ED Fall Risk Assessment (Adult) Confusion or Disorientation No (0 pts) ss Intoxicated or Sedated No (0 pts) Impaired Gait No (0 pts) Mobility Assist Device Used No (0 pt) Altered Elimination No (0 pt) Score/Fall Risk Level 0 - 2 = Low Risk Maintained a safe environment. 04:45 [facility] ED Fall Risk Assessment (Adult) History of falling in the last 3 months, ss including since admission No falls in past 3 months (0 pts). Abuse screen: Denies threats or abuse. Denies injuries from another. Nutritional screening: No deficits noted. Tuberculosis screening: Never had TB. Adams Swallow Protocol Brief Cognitive Screen What is your name? Normal, Where are you right now? Normal, What year is it? Normal. Oral Mechanism Examination Facial Symmetry: Normal, Motion: Normal, Lip Closure: Normal, Oral Mechanism Result: Normal. 3 oz Water Swallow Challenge: Pt able to drink all water without stopping, coughing, choking or throat clearing: Yes Result: PASS. Tracy Swallow Protocol. Assessment: 04:13 VAN Scoring: Arm Drift: Minor drift Visual Disturbance: No visual disturbance noted. ss Aphasia: No aphasia noted. Neglect: No neglect noted. Tracy Swallow Protocol Exclusion Criteria: Exclusion Criteria Result: Proceed Brief Cognitive Screen What is your name? Normal, Where are you right now? Normal, What year is it? Normal. Oral Mechanism Examination Facial Symmetry: Normal, Motion: Normal, Lip Closure: Normal, Oral Mechanism Result: Normal. 3 oz Water Swallow Challenge: Pt able to drink all water without stopping, coughing, choking or throat clearing: Yes Result: PASS MD Notified: Denys Pringle MD. TNKase (Tenecteplase) Screening: Indications: Treatment will start within 4.5 hours onset of symptoms: No. Reassessment: SEE TRIAGE ASSESSMENT. Neuro: Level of Consciousness is awake, alert, obeys commands, Oriented to person, place, time, situation, Electronic Parts Designer are weak on left Weakness in left Gait is steady, Speech is normal, Facial droop on left, Pupils are PERRLA, Intact Denies blurred vision dizziness, difficulty swallowing, headache. Respiratory: Airway is patent Respiratory effort is even, unlabored, Respiratory pattern is regular, symmetrical. EENT: Oral mucosa is moist. Derm: Skin is intact, is healthy with good turgor, Skin is pink, warm \T\ dry. normal. 04:45 Reassessment: Pt initially denies pain, but now reports that she has been having pain ss to L shoulder, L lateral side of neck. GI:. Musculoskeletal: Range of motion: limited in left shoulder. 06:22 Reassessment: Patient appears in no apparent distress at this time. Patient and/or ss family updated on plan of care and expected duration. Pain level reassessed. Patient is alert, oriented x 3, equal unlabored respirations, skin warm/dry/pink. 08:00 Reassessment: Patient is alert, oriented x 3, equal unlabored respirations, skin aa5 warm/dry/pink. Patient states feeling better. Patient states symptoms have improved. 08:15 Reassessment: Awaiting daughter for ride home. . aa5 08:30 Reassessment: Ambulatory with steady gait to restroom. aa5 Vital Signs: 04:13 Pulse 92; Resp 16; Temp 98(TE); Pulse Ox 96% ; Weight 63.5 kg; Height 5 ft. 2 in. ; ss Pain 0/10; 04:30 BP 125 / 90; ss 05:37 BP 109 / 83; Pulse 90; Resp 17; Pulse Ox 98% on R/A; ss 08:00 BP 125 / 93; Pulse 93; Resp 16 S; Pulse Ox 97% on R/A; aa5 04:13 Body Mass Index 25.61 (63.50 kg, 157.48 cm) ss 04:13 Pain Scale: Adult ss [place] Coma Score: 06:35 Eye Response: spontaneous(4). Motor Response: obeys commands(6). Verbal Response: sp4 oriented(5). Total: 15. NIH Stroke Scale Scores: 04:13 NIHSS Score: 2 ss 04:13 NIHSS Score: 2 ss 06:33 NIHSS Score: 0 sp4 ED Course: 04:12 Patient arrived in ED. ty 04:20 Denys Pringle MD is Attending Physician. sp4 04:20 Inserted saline lock: 20 gauge in right antecubital area, using aseptic technique. ss Blood collected. Flushed with 10 mL NS. 04:27 Triage completed. ss 04:27 Arm band placed on right wrist. ss 04:30 Patient has correct armband on for positive identification. Bed in low position. Call ss light in reach. Side rails up X 1. 04:31 CT Stroke Brain w/o Contrast In Process Unspecified. EDMS 04:49 X-ray completed. Portable x-ray completed in exam room. Patient tolerated procedure mh1 well. 04:56 Stroke CXR 1 View In Process Unspecified. EDMS 05:26 Valery Gurrola, MARLENE is Primary Nurse. ss 05:46 CT Neck Angio In Process Unspecified. EDMS 05:46 Head angio In Process Unspecified. EDMS 07:35 Urine collected: clean catch specimen, clear, Amount Voided: 350mL. ll1 07:44 UDS Sent. ll1 08:10 No provider procedures requiring assistance completed. IV discontinued, intact, aa5 bleeding controlled, No redness/swelling at site. Pressure dressing applied. Administered Medications: 04:49 Drug: NS 0.9% IV 1000 ml IV at 1 bolus Per protocol; 1000 mL bolus Route: IV; Rate: 1 ss bolus; Site: right antecubital; 06:21 Follow up: IV Status: Completed infusion; IV Intake: 1000ml ss 04:49 Drug: Diazepam PO 5 mg PO once Route: PO; ss 06:21 Follow up: Response: No adverse reaction; Pain is decreased ss 06:22 Drug: NS 0.9% IV 1000 ml IV at 125 ml/hr continuous Route: IV; Rate: 125 ml/hr; Site: ss right antecubital; 07:35 Drug: Methocarbamol PO 750 mg PO once Route: PO; ll1 07:35 Drug: Insulin Regular Human IVP 5 units IVP once {Co-Signature: ll1 (Gorge Murillo ph RN).} Route: IVP; Site: right antecubital; 07:35 Drug: HYDROcodone-acetaminophen Feeding Tube 5 mg-325 mg 2 tabs Feeding Tube once ll1 {Note: RASS 0.} Route: Feeding Tube; Medication: 08:00 VIS not applicable for this client. aa5 Point of Care Testing: Blood Glucose: 04:24 Blood Glucose: 353 mg/dL; ss 07:14 Blood Glucose: 304 mg/dL; db Ranges: Intake: 06:21 IV: 1000ml; Total: 1000ml. Outcome: 07:27 Discharge ordered by . sp4 08:35 Discharged to home ambulatory, with family, aa5 08:35 Condition: stable 08:35 Discharge instructions given to patient, Instructed on discharge instructions, follow up and referral plans. medication usage, Demonstrated understanding of instructions, follow-up care, medications, Prescriptions given X 3, 08:39 Patient left the ED. NIH Stroke Scale - NIH Stroke Score Date: 06/01/2024 Time: 04:13 Total Score = 2 10. Dysarthria (speech clarity - read or repeat words) - 0(Normal) 11. Extinction and Inattention (visual/tactile/auditory/spatial/personal) - 0(No abnormality) 1a. Level of Consciousness (LOC) - 0(Alert) 1b. Level of Consciousness (LOC) (Month \T\ Age) - 0(Both) 1c. LOC Commands (Open \T\ Closes Eyes/Alliances Consultant) - 0(Both) 2. Best Gaze (Lateral Gaze Paresis) - 0(Normal) 3. Visual Field Loss - 0(No visual loss) 4. Facial Palsy - 1(Minor Paralysis) 5a. Left Arm: Motor (10-second hold) - 1(Drift) 5b. Right Arm: Motor (10-second hold) - 0(No drift) 6a. Left Leg: Motor (5-second hold - always test supine) - 0(No drift) 6b. Right Leg: Motor (5-second hold - always test supine) - 0(No drift) 7. Limb Ataxia (finger/nose \T\ heel/anaya - test with eyes open) - 0(Absent) 8. Sensory Loss (pinprick arms/legs/face) - 0(Normal) 9. Best Language: Aphasia (description/naming/reading) - 0(No aphasia) Initials: NIH Stroke Scale - NIH Stroke Score Date: 06/01/2024 Time: 04:13 Total Score = 2 10. Dysarthria (speech clarity - read or repeat words) - 0(Normal) 11. Extinction and Inattention (visual/tactile/auditory/spatial/personal) - 0(No abnormality) 1a. Level of Consciousness (LOC) - 0(Alert) 1b. Level of Consciousness (LOC) (Month \T\ Age) - 0(Both) 1c. LOC Commands (Open \T\ Closes Eyes/Alliances Consultant) - 0(Both) 2. Best Gaze (Lateral Gaze Paresis) - 0(Normal) 3. Visual Field Loss - 0(No visual loss) 4. Facial Palsy - 1(Minor Paralysis) 5a. Left Arm: Motor (10-second hold) - 1(Drift) 5b. Right Arm: Motor (10-second hold) - 0(No drift) 6a. Left Leg: Motor (5-second hold - always test supine) - 0(No drift) 6b. Right Leg: Motor (5-second hold - always test supine) - 0(No drift) 7. Limb Ataxia (finger/nose \T\ heel/anaya - test with eyes open) - 0(Absent) 8. Sensory Loss (pinprick arms/legs/face) - 0(Normal) 9. Best Language: Aphasia (description/naming/reading) - 0(No aphasia) Initials: NIH Stroke Scale - NIH Stroke Score Date: 06/01/2024 Time: 06:33 Total Score = 0 10. Dysarthria (speech clarity - read or repeat words) - 0(Normal) 11. Extinction and Inattention (visual/tactile/auditory/spatial/personal) - 0(No abnormality) 1a. Level of Consciousness (LOC) - 0(Alert) 1b. Level of Consciousness (LOC) (Month \T\ Age) - 0(Both) 1c. LOC Commands (Open \T\ Closes Eyes/Alliances Consultant) - 0(Both) 2. Best Gaze (Lateral Gaze Paresis) - 0(Normal) 3. Visual Field Loss - 0(No visual loss) 4. Facial Palsy - 0(Normal) 5a. Left Arm: Motor (10-second hold) - 0(No drift) 5b. Right Arm: Motor (10-second hold) - 0(No drift) 6a. Left Leg: Motor (5-second hold - always test supine) - 0(No drift) 6b. Right Leg: Motor (5-second hold - always test supine) - 0(No drift) 7. Limb Ataxia (finger/nose \T\ heel/anaya - test with eyes open) - 0(Absent) 8. Sensory Loss (pinprick arms/legs/face) - 0(Normal) 9. Best Language: Aphasia (description/naming/reading) - 0(No aphasia) Initials: sp4 Signatures: Dispatcher [employer] EDBlanche Corral 1 Ginger Monroy RN RN aa5 Valery Gurrola, MARLENE RN ss Obdulia Ramirez RN RN ph Chidi, Gorge, RN RN ll1 Luci Kang, RN RN Denys Pretty MD MD sp4 Lars Rodriguez Lynsay RN ll1 Corrections: (The following items were deleted from the chart) 07:44 07:43 Insulin Regular Human IVP 5 units IVP in right antecubital ph ph
--- NOTE | 2024-06-01 07:27 | EDPHYS ---
Physician Documentation [facility] Name: Amie Irizarry Age: 48 yrs Sex: Female : 1975 Arrival Date: 06/01/2024 Time: 04:07 Bed 5 Private MD: ED Physician Denys Pringle HPI: 06/01 04:21 This 48 yrs old Female presents to ER via Unassigned with complaints of sp4 numbness . 06:33 48-year-old female complains of numbness and pain to the right arm and right leg and sp4 right face. Numbness began at 8 PM yesterday evening. . 16:13 Emotional upset on presentation. Code stroke was called. . sp4 Historical: - Allergies: 04:27 Demerol; ss 04:27 Diflucan; ss - PMHx: 04:27 Diabetes - NIDDM; Hypertension; ss - Social history:: Patient/guardian denies using alcohol, street drugs, IV drugs, caffeine, over the counter diet medications, tobacco products. - Family history:: not pertinent. ROS: 06:33 Constitutional: Negative for fever, chills, and weight loss, positive for left sided sp4 numbness and left arm and neck pain 06:33 All other systems are negative, Exam: 06:24 Constitutional: This is a well developed, well nourished patient who is awake, alert, sp4 and in no acute distress. Head/Face: Normocephalic, atraumatic. Eyes: Pupils equal round and reactive to light, extra-ocular motions intact. Lids and lashes normal. Conjunctiva and sclera are not injected. Cornea within normal limits. Periorbital areas with no swelling, redness, or edema. ENT: Nares patent. No nasal discharge, no septal abnormalities noted. Tympanic membranes are normal and external auditory canals are clear. Oropharynx with no redness, swelling, or masses, exudates, or evidence of obstruction, uvula midline. Mucous membranes moist. Neck: Trachea midline, no thyromegaly or masses palpated, and no cervical lymphadenopathy. Supple, full range of motion without nuchal rigidity, or vertebral point tenderness. Chest/axilla: Normal chest wall appearance and motion. Nontender with no deformity. No lesions are appreciated. Cardiovascular: Regular rate and rhythm with a normal S1 and S2. No gallops, murmurs, or rubs. Normal PMI, no JVD. No pulse deficits. Respiratory: Lungs have equal breath sounds bilaterally, clear to auscultation and percussion. No rales, rhonchi or wheezes noted. No increased work of breathing, no retractions or nasal flaring. Abdomen/GI: Soft, with normal bowel sounds. No distension or tympany. No guarding or rebound. No evidence of tenderness throughout. Back: No spinal tenderness. No costovertebral tenderness. Skin: Warm, dry with normal turgor. Normal color with no rashes, no lesions, and no evidence of cellulitis. MS/ Extremity: Pulses equal, no cyanosis. Neurovascular intact. Full, normal range of motion. Neuro: Awake and alert, GCS 15, oriented to person, place, time, and situation. Cranial nerves II-XII grossly intact. Motor strength 5/5 in all extremities. Sensory grossly intact. Psych: Awake, alert, with orientation to person, place and time. Behavior, mood, and affect are within normal limits 06:24 ECG was reviewed by the Attending Physician. EKG 0 434 normal sinus rhythm heart rate 92 Vital Signs: 04:13 Pulse 92; Resp 16; Temp 98(TE); Pulse Ox 96% ; Weight 63.5 kg; Height 5 ft. 2 in. ; ss Pain 0/10; 04:30 BP 125 / 90; ss 05:37 BP 109 / 83; Pulse 90; Resp 17; Pulse Ox 98% on R/A; ss 08:00 BP 125 / 93; Pulse 93; Resp 16 S; Pulse Ox 97% on R/A; aa5 04:13 Body Mass Index 25.61 (63.50 kg, 157.48 cm) ss 04:13 Pain Scale: Adult NIH Stroke Scale Scores: 04:13 NIHSS Score: 2 ss 04:13 NIHSS Score: 2 ss 06:33 NIHSS Score: 0 sp4 Rhonda Coma Score: 06:35 Eye Response: spontaneous(4). Motor Response: obeys commands(6). Verbal Response: sp4 oriented(5). Total: 15. MDM: 04:21 Patient medically screened. sp4 06:22 ED course: There is subtle hyperdensity at right cerebral peduncle on axial plane only sp4 (series 201 image 14). This is felt to be artifactual in nature; however acute blood cannot be entirely excluded. The findings were discussed with Dr. Denys Pringle at 06/01/2024 4:48 AM CDT. Electronically signed by: Anna Ambriz MD 06/01/2024 04:52 AM CDT RP End of Addendum CT HEAD WITHOUT IV CONTRAST INDICATION: STROKE ALERT. COMPARISON: CT head 12/25/2021 TECHNIQUE: CT images of the head were obtained without contrast. Multiplanar reformats were provided. Dose lowering techniques such as automated exposure control, iterative reconstruction, and mA and/or kV adjustment for patient size was utilized for this examination. FINDINGS: PARENCHYMA: No acute arterial territory infarct or hemorrhage. No mass effect or midline shift. VENTRICLES: Normal in size for patient's age. EXTRA-AXIAL: No focal collection. Patent basilar cisterns. ORBITS: Unremarkable. BONES: No acute finding. PARANASAL SINUSES/MASTOIDS/MIDDLE EARS: Clear. SOFT TISSUES: No acute findings. OTHER: None. IMPRESSION: No acute intracranial abnormality. Electronically signed by: Anna Ambriz MD 06/01/2024 04:42 AM. ED course: EXAM: XR Chest, 1 View CLINICAL HISTORY: The patient is 48 years old and is Female; Code stroke TECHNIQUE: Single view of the chest. COMPARISON: November 15, 2022. FINDINGS: Lungs: No pulmonary vascular congestion or consolidation. Pleural space: Unremarkable. No pneumothorax. Heart: Unremarkable. No cardiomegaly. Mediastinum: Unremarkable. Bones/joints: No acute fracture. Upper abdomen: No free air in the visualized upper abdomen. IMPRESSION: No acute cardiopulmonary process identified.. 06:23 ED course: CT NECK ANGIOGRAPHYWITH IV CONTRAST, CT HEAD ANGIOGRAPHYWITH IV CONTRAST sp4 CLINICAL INDICATION: Altered mental status COMPARISON: Head CT from earlier today. TECHNIQUE: Following intravenous contrast administration, helical CT images were obtained through the head and neck during the arterial phase. Multiplanar MIP and MPR reconstructions were created and reviewed. Dose lowering technique(s) such as automated exposure control, iterative reconstruction, mA and/or KV adjustment for patient's size was utilized for this examination. FINDINGS: CTA HEAD: Posterior circulation: Vertebral artery dominance: Right sided Right vertebral artery: No significant stenosis. No aneurysm. Left vertebral artery: No significant stenosis. No aneurysm. Basilar artery: No significant stenosis. No aneurysm. Posterior cerebral arteries: No significant stenosis. No aneurysm. Anterior circulation: Right ICA: No significant stenosis. No aneurysm. Right MCA: No significant stenosis. No aneurysm. Right ITALO: No significant stenosis. No aneurysm. Left ICA: No significant stenosis. No aneurysm. Left MCA: No significant stenosis. No aneurysm. Left ITALO: No significant stenosis. No aneurysm. CTA NECK: Aortic arch: Left aortic arch with classic three-vessel branching pattern. No aneurysm or dissection. Vertebral arteries: No aneurysm or dissection. Right CCA: No hemodynamically significant stenosis. No aneurysm or dissection. Right ICA: No hemodynamically significant stenosis. No aneurysm or dissection. Right ECA: No aneurysm or dissection. Left CCA: No hemodynamically significant stenosis. No aneurysm or dissection. Left ICA: No hemodynamically significant stenosis. No aneurysm or dissection. Left ECA: No aneurysm or dissection. Measurement of carotid stenosis is based on criteria described in the [place] Symptomatic Carotid Endarterectomy Trial (NASCET). NASCET criteria for estimating stenosis compares the normal distal ICA diameter with the standard proximal ICA diameter. Lung apices: Clear. Bones: No acute or destructive osseous lesion. Cervical soft tissue: Unremarkable. Other: None. IMPRESSION: Negative CTA of the head and neck. Electronically signed by: Anna Ambriz MD 06/01/2024 06:19 AM. 06:35 Differential Diagnosis: CVA, alcohol intoxication, hypoglycemia. sp4 16:14 Data reviewed: vital signs, nurses notes, radiologic studies, CT scan. sp4 16:16 Consideration of Admission/Observation Escalation of care including sp4 admission/observation considered. ED course: Repeat Stroke Exam is NEGATIVE for signs of acute CVA, and NIHSS is 0. Patient advised to continue Diabetic Diet and to control her blood sugars better. Stable for discharge home at this time. Left arm pain and numbness likely secondary to muscular sprain or other non CVA related pathology. . 06/01 04:22 Order name: Basic Metabolic Panel; Complete Time: 06:24 sp4 06/01 04:22 Order name: CBC with Diff; Complete Time: 16:15 sp4 06/01 04:22 Order name: Hepatic Function; Complete Time: 06:24 sp4 06/01 04:22 Order name: High Sensitivity Troponin; Complete Time: 06:24 sp4 06/01 04:22 Order name: Magnesium; Complete Time: 06:24 sp4 06/01 04:22 Order name: Protime (+inr); Complete Time: 06:24 sp4 06/01 04:22 Order name: Ptt, Activated; Complete Time: 06:24 sp4 06/01 04:22 Order name: UDS; Complete Time: 16:15 sp4 06/01 07:19 Order name: Glucose, Ancillary Testing; Complete Time: 16:15 EDMS 06/01 07:24 Order name: Glucose, Ancillary Testing; Complete Time: 16:15 EDMS 06/01 04:22 Order name: CT Stroke Brain w/o Contrast sp4 06/01 04:22 Order name: Stroke CXR 1 View sp4 06/01 04:33 Order name: CT Neck Angio sp4 06/01 04:40 Order name: Head angio EDMS 06/01 04:22 Order name: Accucheck; Complete Time: 04:43 sp4 06/01 04:22 Order name: Cardiac monitoring; Complete Time: 04:43 sp4 06/01 04:22 Order name: EKG - Nurse/Tech; Complete Time: 04:43 sp4 06/01 04:22 Order name: IV Saline Lock; Complete Time: 04:43 sp4 06/01 04:22 Order name: Labs collected and sent; Complete Time: 04:43 sp4 06/01 04:22 Order name: O2 Per Protocol; Complete Time: 04:43 sp4 06/01 04:22 Order name: O2 Sat Monitoring; Complete Time: 04:43 sp4 06/01 04:22 Order name: Stroke Swallow Screen; Complete Time: 04:43 sp4 06/01 07:07 Order name: Accucheck Blood Glucose; Complete Time: 07:13 sp4 EC:24 Rate is 92 beats/min. Rhythm is regular, Normal Sinus Rhythm. QRS [place] is Normal. CO sp4 interval is normal. QRS interval is normal. QT interval is normal. No Q waves. T waves are Normal. No ST changes noted. Clinical impression: Normal ECG. Interpreted by me. Reviewed by me. Administered Medications: 04:49 Drug: NS 0.9% IV 1000 ml IV at 1 bolus Per protocol; 1000 mL bolus Route: IV; Rate: 1 ss bolus; Site: right antecubital; 06:21 Follow up: IV Status: Completed infusion; IV Intake: 1000ml ss 04:49 Drug: Diazepam PO 5 mg PO once Route: PO; ss 06:21 Follow up: Response: No adverse reaction; Pain is decreased ss 06:22 Drug: NS 0.9% IV 1000 ml IV at 125 ml/hr continuous Route: IV; Rate: 125 ml/hr; Site: ss right antecubital; 07:35 Drug: Methocarbamol PO 750 mg PO once Route: PO; ll1 07:35 Drug: Insulin Regular Human IVP 5 units IVP once {Co-Signature: ll1 (Gorge Murillo ph RN).} Route: IVP; Site: right antecubital; 07:35 Drug: HYDROcodone-acetaminophen Feeding Tube 5 mg-325 mg 2 tabs Feeding Tube once ll1 {Note: RASS 0.} Route: Feeding Tube; Point of Care Testing: Blood Glucose: 04:24 Blood Glucose: 353 mg/dL; ss 07:14 Blood Glucose: 304 mg/dL; db Ranges: Critical Glucose Levels:Adult <50 mg/dl or >400 mg/dl <40 mg/dl or >180 mg/dl Disposition Summary: 06/01/24 07:27 Discharge Ordered Notes: Location: Home sp4 Problem: new sp4 Symptoms: have improved sp4 Condition: Stable sp4 Diagnosis - Left arm pain, left arm numbness, left leg numbness, controlled diabetes type II sp4 with Hyperglycemia Followup: sp4 - With: Private Physician - When: 7 - 10 days - Reason: Recheck today's complaints Discharge Instructions: - Discharge Summary Sheet sp4 - Diabetes Mellitus and Nutrition, Adult sp4 Forms: - Patient Portal Instructions sp4 Prescriptions: - Ibuprofen 600 mg Oral Tablet - take 1 tablet ORAL route every 6 hours As needed take with food; 30 tablet; sp4 Refills: 0, Product Selection Permitted - Tramadol 50 mg Oral tablet - take 1 tablet ORAL route every 8 hours as needed; 20 tablet; Refills: 0, sp4 Product Selection Permitted - methocarbamol 750 mg Oral tablet - take 2 tablets ORAL route every 8 hours for 2 days PRN pain; 60 tablet; sp4 Refills: 0, Product Selection Permitted NIH Stroke Scale - NIH Stroke Score Date: 06/01/2024 Time: 04:13 Total Score = 2 10. Dysarthria (speech clarity - read or repeat words) - 0(Normal) 11. Extinction and Inattention (visual/tactile/auditory/spatial/personal) - 0(No abnormality) 1a. Level of Consciousness (LOC) - 0(Alert) 1b. Level of Consciousness (LOC) (Month \T\ Age) - 0(Both) 1c. LOC Commands (Open \T\ Closes Eyes/Fire Truck Driver) - 0(Both) 2. Best Gaze (Lateral Gaze Paresis) - 0(Normal) 3. Visual Field Loss - 0(No visual loss) 4. Facial Palsy - 1(Minor Paralysis) 5a. Left Arm: Motor (10-second hold) - 1(Drift) 5b. Right Arm: Motor (10-second hold) - 0(No drift) 6a. Left Leg: Motor (5-second hold - always test supine) - 0(No drift) 6b. Right Leg: Motor (5-second hold - always test supine) - 0(No drift) 7. Limb Ataxia (finger/nose \T\ heel/anaya - test with eyes open) - 0(Absent) 8. Sensory Loss (pinprick arms/legs/face) - 0(Normal) 9. Best Language: Aphasia (description/naming/reading) - 0(No aphasia) Initials: NIH Stroke Scale - NIH Stroke Score Date: 06/01/2024 Time: 04:13 Total Score = 2 10. Dysarthria (speech clarity - read or repeat words) - 0(Normal) 11. Extinction and Inattention (visual/tactile/auditory/spatial/personal) - 0(No abnormality) 1a. Level of Consciousness (LOC) - 0(Alert) 1b. Level of Consciousness (LOC) (Month \T\ Age) - 0(Both) 1c. LOC Commands (Open \T\ Closes Eyes/Fire Truck Driver) - 0(Both) 2. Best Gaze (Lateral Gaze Paresis) - 0(Normal) 3. Visual Field Loss - 0(No visual loss) 4. Facial Palsy - 1(Minor Paralysis) 5a. Left Arm: Motor (10-second hold) - 1(Drift) 5b. Right Arm: Motor (10-second hold) - 0(No drift) 6a. Left Leg: Motor (5-second hold - always test supine) - 0(No drift) 6b. Right Leg: Motor (5-second hold - always test supine) - 0(No drift) 7. Limb Ataxia (finger/nose \T\ heel/anaya - test with eyes open) - 0(Absent) 8. Sensory Loss (pinprick arms/legs/face) - 0(Normal) 9. Best Language: Aphasia (description/naming/reading) - 0(No aphasia) Initials: ss NIH Stroke Scale - NIH Stroke Score Date: 06/01/2024 Time: 06:33 Total Score = 0 10. Dysarthria (speech clarity - read or repeat words) - 0(Normal) 11. Extinction and Inattention (visual/tactile/auditory/spatial/personal) - 0(No abnormality) 1a. Level of Consciousness (LOC) - 0(Alert) 1b. Level of Consciousness (LOC) (Month \T\ Age) - 0(Both) 1c. LOC Commands (Open \T\ Closes Eyes/Fire Truck Driver) - 0(Both) 2. Best Gaze (Lateral Gaze Paresis) - 0(Normal) 3. Visual Field Loss - 0(No visual loss) 4. Facial Palsy - 0(Normal) 5a. Left Arm: Motor (10-second hold) - 0(No drift) 5b. Right Arm: Motor (10-second hold) - 0(No drift) 6a. Left Leg: Motor (5-second hold - always test supine) - 0(No drift) 6b. Right Leg: Motor (5-second hold - always test supine) - 0(No drift) 7. Limb Ataxia (finger/nose \T\ heel/anaya - test with eyes open) - 0(Absent) 8. Sensory Loss (pinprick arms/legs/face) - 0(Normal) 9. Best Language: Aphasia (description/naming/reading) - 0(No aphasia) Initials: sp4 Signatures: Dispatcher [employer] EDMS Valery Gurrola RN RN ss Obdulia Ramirez RN RN Gorge Murillo RN RN ll1 Denys Pringle MD MD sp4 Gorge Murillo RN ll1 Corrections: (The following items were deleted from the chart) 04:22 04:22 Chest Single View+[email or web address] ordered. EDMS EDMS 04:49 04:22 NPO ordered. sp4
[2024-06-01] MEDS ORDERED: HYDROCODONE/APAP 5/325 MG TAB ONE (07:28)
[2024-06-01] MEDS ORDERED: methocarbamoL 750 MG TAB ONE (07:28)
[2024-06-01] MEDS ORDERED: INSULIN REGULAR (HUMAN) 100 UNIT/ML ONE (07:30)
[2024-06-01 08:01] LABS: Barbiturates NEGATIVE (NEGATIVE); Benzodiazepines NEGATIVE (NEGATIVE); Cocaine NEGATIVE (NEGATIVE); METHAMPHETAM NEGATIVE (NEGATIVE); Methadone NEGATIVE (NEGATIVE); Opiates NEGATIVE (NEGATIVE); Phencyclidine NEGATIVE (NEGATIVE); THC Cannibis NEGATIVE (NEGATIVE)
[2024-06-01 08:44] VITALS: TEMP 98
[2024-06-01 08:49] VITALS: BP 125/93; O2SAT 97
[2024-06-01 09:21] LABS: Differential Total Cells Count 100; Lymphocytes 46 % (15-42); Monocytes 9 % (0-10); Segmented Neutrophils 43 % (40-80)
[2024-06-01 09:22] LABS: Atypical Lymphocytes 1 %; Blood Morphology Comment NOT SEEN (NOT SEEN); Platelet Estimate ADEQ
--- NOTE | 2024-06-01 18:57 | RAD REPORT ---
EXAM DESCRIPTION: CT - Neck Angio - 06/01/2024 7:14 am CLINICAL HISTORY: Altered mental status COMPARISON: Head CT from earlier today. TECHNIQUE: Following intravenous contrast administration, helical CT images were obtained through th e head and neck during the arterial phase. Multiplanar MIP and MPR reconstructions were created and r eviewed. Dose lowering technique(s) such as automated exposure control, iterative reconstruction, mA and/or KV adjustment for patient's size was utilized for this examination. FINDINGS: CTA HEAD: Posterior circulation: Vertebral artery dominance: Right sided Right vertebral artery: No significant stenosis. No aneurysm. Left vertebral artery: No significant stenosis. No aneurysm. Basilar artery: No significant stenosis. No aneurysm. Posterior cerebral arteries: No significant stenosis. No aneurysm. Anterior circulation: Right ICA: No significant stenosis. No aneurysm. Right MCA: No significant stenosis. No aneurysm. Right ITALO: No significant stenosis. No aneurysm. Left ICA: No significant stenosis. No aneurysm. Left MCA: No significant stenosis. No aneurysm. Left ITALO: No significant stenosis. No aneurysm. CTA NECK: Aortic arch: Left aortic arch with classic three-vessel branching pattern. No aneurysm or dissection. Vertebral arteries: No aneurysm or dissection. Right CCA: No hemodynamically significant stenosis. No aneurysm or dissection. Right ICA: No hemodynamically significant stenosis. No aneurysm or dissection. Right ECA: No aneurysm or dissection. Left CCA: No hemodynamically significant stenosis. No aneurysm or dissection. Left ICA: No hemodynamically significant stenosis. No aneurysm or dissection. Left ECA: No aneurysm or dissection. Measurement of carotid stenosis is based on criteria described in the [place] Symptomatic [place] tid Endarterectomy Trial (NASCET). NASCET criteria for estimating stenosis compares the normal dist al ICA diameter with the standard proximal ICA diameter. Lung apices: Clear. Bones: No acute or destructive osseous lesion. Cervical soft tissue: Unremarkable. Other: None. IMPRESSION: Negative CTA of the head and neck. Electronically signed by: Anna Ambriz MD 06/01/2024 06:19 AM CDT Due to temporary technical issues with the PACS/Fluency reporting system, reports are being signed by the in house radiologists without review as a courtesy to insure prompt reporting. The interpreting radiologist is fully responsible for the content of the report.
--- NOTE | 2024-06-01 19:04 | RAD REPORT ---
EXAM DESCRIPTION: CT - Head angio - 06/01/2024 7:14 am CLINICAL HISTORY: Altered mental status COMPARISON: Head CT from earlier today. TECHNIQUE: Following intravenous contrast administration, helical CT images were obtained through th e head and neck during the arterial phase. Multiplanar MIP and MPR reconstructions were created and r eviewed. Dose lowering technique(s) such as automated exposure control, iterative reconstruction, mA and/or KV adjustment for patient's size was utilized for this examination. FINDINGS: CTA HEAD: Posterior circulation: Vertebral artery dominance: Right sided Right vertebral artery: No significant stenosis. No aneurysm. Left vertebral artery: No significant stenosis. No aneurysm. Basilar artery: No significant stenosis. No aneurysm. Posterior cerebral arteries: No significant stenosis. No aneurysm. Anterior circulation: Right ICA: No significant stenosis. No aneurysm. Right MCA: No significant stenosis. No aneurysm. Right ITALO: No significant stenosis. No aneurysm. Left ICA: No significant stenosis. No aneurysm. Left MCA: No significant stenosis. No aneurysm. Left ITALO: No significant stenosis. No aneurysm. CTA NECK: Aortic arch: Left aortic arch with classic three-vessel branching pattern. No aneurysm or dissection. Vertebral arteries: No aneurysm or dissection. Right CCA: No hemodynamically significant stenosis. No aneurysm or dissection. Right ICA: No hemodynamically significant stenosis. No aneurysm or dissection. Right ECA: No aneurysm or dissection. Left CCA: No hemodynamically significant stenosis. No aneurysm or dissection. Left ICA: No hemodynamically significant stenosis. No aneurysm or dissection. Left ECA: No aneurysm or dissection. Measurement of carotid stenosis is based on criteria described in the [place] Symptomatic [place] tid Endarterectomy Trial (NASCET). NASCET criteria for estimating stenosis compares the normal dist al ICA diameter with the standard proximal ICA diameter. Lung apices: Clear. Bones: No acute or destructive osseous lesion. Cervical soft tissue: Unremarkable. Other: None. IMPRESSION: Negative CTA of the head and neck. Electronically signed by: Anna Ambriz MD 06/01/2024 06:19 AM CDT Due to temporary technical issues with the PACS/Fluency reporting system, reports are being signed by the in house radiologists without review as a courtesy to insure prompt reporting. The interpreting radiologist is fully responsible for the content of the report.
--- NOTE | 2024-06-01 19:06 | RAD REPORT ---
EXAM DESCRIPTION: CT - Ct Stroke Brain Wo Cont - 06/01/2024 7:13 am ADDENDUM #1 There is subtle hyperdensity at right cerebral peduncle on axial plane only (series 201 image 14). Th is is felt to be artifactual in nature; however acute blood cannot be entirely excluded. The findings were discussed with Dr. Denys Pringle at 06/01/2024 4:48 AM CDT. Electronically signed by: Anan Ambriz MD 06/01/2024 04:52 AM CDT RP End of Addendum CT HEAD WITHOUT IV CONTRAST CLINICAL HISTORY: STROKE ALERT. COMPARISON: CT head 12/25/2021 TECHNIQUE: CT images of the head were obtained without contrast. Multiplanar reformats were provided . Dose lowering techniques such as automated exposure control, iterative reconstruction, and mA and/o r kV adjustment for patient size was utilized for this examination. FINDINGS: PARENCHYMA: No acute arterial territory infarct or hemorrhage. No mass effect or midline s hift. VENTRICLES: Normal in size for patient's age. EXTRA-AXIAL: No focal collection. Patent basilar cisterns. ORBITS: Unremarkable. BONES: No acute finding. PARANASAL SINUSES/MASTOIDS/MIDDLE EARS: Clear. SOFT TISSUES: No acute findings. OTHER: None. IMPRESSION: No acute intracranial abnormality. Electronically signed by: Anna Ambriz MD 06/01/2024 04:42 AM CDT RP Due to temporary technical issues with the PACS/Fluency reporting system, reports are being signed by the in house radiologists without review as a courtesy to insure prompt reporting. The interpreting radiologist is fully responsible for the content of the report.
--- NOTE | 2024-06-01 19:17 | RAD REPORT ---
EXAM DESCRIPTION: RAD - Chest Single View - 06/01/2024 4:54 am CLINICAL HISTORY: The patient is 48 years old and is Female; Code stroke TECHNIQUE: Single view of the chest. COMPARISON: November 15, 2022. FINDINGS: Lungs: No pulmonary vascular congestion or consolidation. Pleural space: Unremarkable. No pneumothorax. Heart: Unremarkable. No cardiomegaly. Mediastinum: Unremarkable. Bones/joints: No acute fracture. Upper abdomen: No free air in the visualized upper abdomen. IMPRESSION: No acute cardiopulmonary process identified. Electronically signed by: Amie Melo MD 06/01/2024 05:36 AM CDT RP ND Due to temporary technical issues with the PACS/Fluency reporting system, reports are being signed by the in house radiologists without review as a courtesy to insure prompt reporting. The interpreting radiologist is fully responsible for the content of the report.
--- NOTE | 2024-06-03 17:06 | EKG ---
Test Date: 2024-06-01 Test Time: 04:34:15 Mash Tub Cooker Operator: MEASUREMENT RESULTS: Intervals: Rate: 92 AL: 146 QRSD: 80 QT: 372 QTc: 460 Burke: P: 56 AL: 146 QRS: 48 T: 40 INTERPRETIVE STATEMENTS: Normal sinus rhythm Normal ECG Compared to ECG 08/12/2020 21:54:15 No significant changes Electronically Signed On 06-03-24 17:00:32 CDT by Noel Rocha
== END 2024-06-01 08:39 | disposition home or self-care (01) ==
LOC: ER 04:07
DX: R20.2 Paresthesia of skin (principal); E11.65 Type 2 diabetes mellitus with hyperglycemia; R20.0 Anesthesia of skin; M79.602 Pain in left arm; M54.2 Cervicalgia; I10 Essential (primary) hypertension
CPT/HCPCS: 96361; 93005; 85025; 80048; 36415; 83735; 85610; 82947 ×2; 80076; 85730; 84484; 80307; 70496; 70498; 70450; 71045; 96374; 99285; Q9967; J7030

== ENCOUNTER 2024-06-02 02:22 | Inpatient (IN) | payer BC ==
[2024-06-02] MEDS ORDERED: ONDANSETRON 4 MG/2 ML VIAL ONE ×2 (02:39→08:25)
--- OUTSIDE RECORDS SUMMARY | 2024-06-02 02:39 | XMS REPORT | Continuity of Care Document ---
Author Name Unknown Address [address] [facility] [address]. [address] [place] [address] [facility] thconnect Address [address] [facility]. [address] [place] [address] Care Team Providers Care Per Diem Interpreter Name Role Phone Hung MARK, Gokul Primary Care Physician + [phone] KEAGAN VARGAS Attending Clinician Unavailable СЕРГЕЙ MORRISON Attending Clinician Unavailab СЕРГЕЙ Joyner Attending Clinician Unavailab stacey Harrell, [facility] Attending Clinician Unavailable Tamiko HORSE RIDER, Сергей Attending Clinician [phone] KEVIN PULIDO Attending Clinician Unavailable KEVIN PULIDO Attending Clinician Unavailable Vitaliy Jewell MD Attending Clinician [phone] Doctor Unassigned, [place] Attending Clinician U VITALIY Shafer Attending Clinician UnavailALONSO Cisse Attending Clinician Unavailable Alonso Diaz Attending Clinician [phone] Flory Nagy PA-C Attending Clinician [phone] Helen Ugalde MD Attending Clinician [phone] IKER BAEZA Attending Clinician Unavailab le OBI-DEMAR, IKER Attending Clinician Unavailab le Nurse, [facility] Fam Attending Clinician Unavailable 2, [facility] Attending Clinician Unavailable Gokul Persaud MD Attending Clinician + MIMA JIMENEZ Attending Clinician Unavailable Dusty MARK, Giuseppe K.H. Attending Clinician [phone] Vitaliy Jewell MD Attending Clinician [phone] Tony CRYPTOLOGIC TECHNICIAN TECHNICALMima Whitaker Attending Clinician + Lab, Ang - Db Attending Clinician Unavailable GOKUL PERSAUD Attending Clinician Unavailable GC_GCBZW_Kadiyala_S Attending Clinician Unavaila David Lyle MD Attending Clinician [phone] DAVID VALDEZ Attending Clinician UnavailSHANNA Gonzalez Attending Clinician Unavaila HARMONY Montalvo Attending Clinician Unavailable Harmony Araya PA-C Attending Clinician [phone] Unknown, Attending Attending Clinician Unavailab le RADIOLOGY Attending Clinician Unavailable Debby Mata RN Attending Clinician Unavailable Provider, [facility] Attending Clinician Unavailable GIUSEPPE MONTANO K.H. Attending Clinician Unavaila liya White, Josh M Attending Clinician [phone] ANDRES GARZON Attending Clinician Unavailable ANDRES GARZON Attending Clinician Unavailable Only, [facility] Pob2 Test Attending Clinician UnavailMerritt Jackson DO Attending Clinician [phone] MERRITT PETTIT Attending Clinician Unavail able ELANA AGUIRRE Attending Clinician Unavailable ROSS HANSEN Attending Clinician UnavailErick Yoder Attending Clinician [phone] ERICK ANN Attending Clinician Unavailable Houston Degroot MD Attending Clinician [phone] JOSE VELIZ Attending Clinician UnavailLEATHA Becerra Attending Clinician Unavailable Nurse, Lorena Meadows Attending Clinician Unavailable Kal Mauricio MD Attending Clinician [phone] KAL MAURICIO Attending Clinician Unavailable Hortensia Balderas MD Attending Clinician + [phone] Huang, Jory Attending Clinician + [phone] Giancarlo ROSARIO, Luma Attending Clinician Unavailable Nuha Ayon RN Attending Clinician Unavailab Citlalli Barahona MD Attending Clinician [phone] CITLALLI SHEIKH Attending Clinician Unavailable Team, [facility] Maintenance Attending Clinicia n Unavailable CLIFF ANDRES Attending Clinician Unavailable Sawyer ROSARIO, Erin Attending Clinician Unavailzack sparks Lab, Lkj Pedi Attending Clinician Unavailable HOUSTON DEGROOT Attending Clinician Unavailable Juan C ROSARIO, Ami Ortega Attending Clinician Unavaila FLORY Lipscomb Attending Clinician Unavailab stacey Murphy RN, Vesta Haq Attending Clinician Un available Shen PAC, Alva S Attending Clinician [phone] Provider, [facility] Attending Clinician Un available Gi Qiu Attending Clinician [phone] HORTENSIA BALDERAS Attending Clinician UnaKeagan Torres MD Attending Clinician [phone] Lorenza Yañez Attending Clinician +[phone] Lab, Adc Fam Pob I Attending Clinician Unavailab LORENZA Butcher Attending Clinician Unavailable P[facility], [facility] Attending Clinician Unav ailable GI JANSEN Attending Clinician Unavailable Sarah Mahmood PA-C Attending Clinician [phone] SARAH MAHMOOD Attending Clinician Unavailable HELEN UGALDE Attending Clinician Unava ilable UNKNOWN, ATTENDING Attending Clinician Unavailab Gi Shah Attending Clinician KEAGAN VARGAS Admitting Clinician Unavailable GC_[email or web address]_José Luis Admitting Clinician UnavailDAVID Kapoor Admitting Clinician UnavailKEVIN Casper Admitting Clinician Unavailable Keagan Vargas MD Admitting Clinician [phone] Payers Payer Name Policy Type Policy Number Effective Date Expirati on Date Source [employer] [facility] [employer] [id number] 2014 00:00:00 Problems Condition Name Condition Details Condition Category Status Onset Date Resolution Date Last Treatment Date Treating Clinician Comments Source Dysuria Dysuria Disease Active 05-13 00:00: 00 [facility] Change in nail appearance Change in nail appearance Disease Active 05-13 00:00: 00 [facility] Suicide attempt by beta primo overdose Suicide attempt by beta primo overdose Disease Active 2019-09 00:00: 00 [facility] Need for influenza vaccinatio n Need for influenza vaccinatio n Disease Active 06-17 00:00: 00 [facility] Acute URI Acute URI Disease Active 06-12 00:00: 00 [facility] COVID-19 virus infection COVID-19 virus infection Disease Active 06-05 00:00: 00 [facility] Dyslipidem ia Dyslipidem ia Disease Active 02-16 00:00: 00 [facility] Palpitatio ns Palpitatio ns Disease Active 02-16 00:00: 00 [facility] Sleep-diso rdered breathing Sleep-diso rdered breathing Disease Active 02-16 00:00: 00 [facility] Overweight (BMI 25.0-29.9) Overweight (BMI 25.0-29.9) Disease Active 02-16 00:00: 00 [facility] Type 2 diabetes mellitus without complicati on Type 2 diabetes mellitus without complicati on Disease Active 2014-09 00:00: 00 [facility] Uncontroll ed diabetes mellitus, without long-term current use of insulin Uncontroll ed diabetes mellitus, without long-term current use of insulin Disease Active 11-04 00:00: 00 Overview: Formattin g of this note might be different from the original. ICD10 Diagnosis Term Junior Underwriter Utility [facility] Group B streptococ dev UTI Group B streptococ dev UTI Disease Active 11-04 00:00: 00 [facility] HLD (hyperlipi demia) HLD (hyperlipi demia) Disease Active 11-04 00:00: 00 [facility] Hypertrigl yceridemia Hypertrigl yceridemia Disease Active 11-04 00:00: 00 [facility] H/O acute pancreatit is H/O acute pancreatit is Disease Active 11-04 00:00: 00 [facility] Fatigue Fatigue Disease Active 11-04 00:00: 00 [facility] Muscle cramp Muscle cramp Disease Active 11-04 00:00: 00 [facility] Falling hair Falling hair Disease Active 11-04 00:00: 00 [facility] Anovulator y amenorrhea Anovulator y amenorrhea Disease Active 11-04 00:00: 00 [facility] Vitamin D deficiency Vitamin D deficiency Disease Active 11-04 00:00: 00 [facility] Myalgia Myalgia Disease Active 11-04 00:00: 00 [facility] Weight gain Weight gain Disease Active 11-04 00:00: 00 [facility] Edema Edema Disease Active 10-15 00:00: 00 [facility] Wilder's palsy Wilder's palsy Disease Active 10-15 00:00: 00 [facility] Diabetes Diabetes Disease Active 10-15 00:00: 00 [facility] GERD (gastroeso phageal reflux disease) GERD (gastroeso phageal reflux disease) Disease Active 10-15 00:00: 00 [facility] Essential hypertensi on Essential hypertensi on Disease Active 10-15 00:00: 00 [facility] Edema Edema Disease Active 10-15 00:00: 00 [facility] Obesity Obesity Disease Resolve d 11-04 00:00: 00 2014-11-04 00:00:00 2014-11-04 13:19:45 [facility] Allergies, Adverse Reactions, Alerts Allergy Name Allergy Type Status Severity Reaction(s) Onset Date Inactive Date Treating Clinician Comments Source FLUCONAZ OLE DRUG INGREDI Active Swelling 10-01 00:00: 00 [facility] Fluconaz ole Propensi ty to adverse reaction s Active Swelling 2019-0 1-07 00:00: 00 [facility] MEPERIDI NE HCL DRUG INGREDI Active Rash 10-07 00:00: 00 [facility] Meperidi ne Hcl Propensi ty to adverse reaction s Active Shortness of Breath 10-07 00:00: 00 [facility] Social History Social Habit Start Date Stop Date Quantity Comments [facility] Alcoholic beverage intake 2024-05-31 00:00:00 2024-05-31 00:00:00 .24 /d [facility] Alcohol intake 2024-01-15 00:00:00 2024-01-15 00:00:00 .24 /d [facility] History of Social function 2023-03-24 00:00:00 2023-03-24 00:00:00 [facility] Exposure to SARS-CoV-2 (event) 2023-01-28 00:00:00 2023-02-07 09:56:00 Not sure [facility] History SDOH Alcohol Frequency 2022-12-19 00:00:00 2022-12-19 00:00:00 1 [facility] History SDOH Alcohol Std Drinks 2022-12-19 00:00:00 2022-12-19 00:00:00 0 [facility] History SDOH Alcohol Binge 2022-12-19 00:00:00 2022-12-19 00:00:00 1 [facility] History SDOH Social Connections Phone 2022-12-19 00:00:00 2022-12-19 00:00:00 5 [facility] History SDOH Social Connections Get Together 2022-12-19 00:00:00 2022-12-19 00:00:00 3 [facility] History SDOH Social Connections Mosque 2022-12-19 00:00:00 2022-12-19 00:00:00 3 [facility] History SDOH Social Connections Membership 2022-12-19 00:00:00 2022-12-19 00:00:00 1 [facility] History SDOH Social Connections Meetings 2022-12-19 00:00:00 2022-12-19 00:00:00 2 [facility] History SDOH Social Connections Living 2022-12-19 00:00:00 2022-12-19 00:00:00 8 [facility] History SDOH Physical Activity DPW 2022-12-19 00:00:00 2022-12-19 00:00:00 0 [facility] History SDOH Physical Activity MPS 2022-12-19 00:00:00 2022-12-19 00:00:00 0 [facility] History SDOH Stress 2022-12-19 00:00:00 2022-12-19 00:00:00 5 [facility] History SDOH Financial 2022-12-19 00:00:00 2022-12-19 00:00:00 4 [facility] History SDOH Food Worry 2022-12-19 00:00:00 2022-12-19 00:00:00 2 [facility] History SDOH Food Scarcity 2022-12-19 00:00:00 2022-12-19 00:00:00 1 [facility] History SDOH Transport Med 2022-12-19 00:00:00 2022-12-19 00:00:00 2 [facility] History SDOH Transport Non-Med 2022-12-19 00:00:00 2022-12-19 00:00:00 2 [facility] History SDOH Housing Unable to Pay 2022-12-19 00:00:00 2022-12-19 00:00:00 2 [facility] History SDOH Housing Places Lived 2022-12-19 00:00:00 2022-12-19 00:00:00 1 [facility] History SDOH Housing Homeless Last Year 2022-12-19 00:00:00 2022-12-19 00:00:00 2 [facility] Tobacco use and exposure 2022-08-11 00:00:00 2022-08-11 00:00:00 Smokeless tobacco non-user [facility] Alcohol Comment 2015-12-21 00:00:00 2015-12-21 00:00:00 Occasional [facility] Sex assigned at 1975 00:00:00 1975 00:00:00 [facility] Smoking Status Start Date Stop Date Source Never smoked tobacco [facility] Medications Ordered Medication Name Filled Medication Name Start Date Stop Date Current Medication? Ordering Clinician Indication Dosage Frequency Signature (SIG) Comments Components Source cefTRIAXone (ROCEPHIN) injection 1,000 mg 06-01 14:00: 00 06-10 13:59 :00 Yes [id number] 1000mg [facility] semaglutide (OZEMPIC) 1 mg/dose (4 mg/3 mL) PnIj 05-28 00:00: 00 Yes [id number] 1mg inject 1 mg under the skin weekly. [facility] ondansetron 4 mg disintegrat ing tablet 05-28 00:00: 00 Yes [id number] 4mg Take 1 tablet by mouth every 8 (eight) hours as needed for Nausea and Vomiting (N/V). [facility] cyanocobala min 1,000 mcg/mL injection 05-28 00:00: 00 Yes [id number] 1000ug inject 1 mL under the skin weekly. [facility] lidocaine 5 % (700 mg/patch) patch 05-28 00:00: 00 05-29 04:59 :00 Yes [id number] 1{patch } Apply 1 Patch to area(s) once now for 1 dose. [facility] ketorolac (TORADOL) injection 30 mg 03-22 00:45: 00 03-22 00:07 :00 No [id number] 30mg 30 mg, Intramuscu lar, ONCE, 1 dose, On Princess 03/21/24 at 1945, Routine [facility] methocarbam oL 750 mg tablet 03-21 00:00: 00 03-29 04:59 :00 Yes [id number] 750mg Take 1 tablet by mouth 4 (four) times daily for 7 days. [facility] ibuprofen 800 mg tablet 03-21 00:00: 00 03-29 04:59 :00 Yes [id number] 800mg Take 1 tablet by mouth every 6 (six) hours as needed (pain) for up to 7 days. [facility] cefTRIAXone (ROCEPHIN) injection 1,000 mg 01-16 05:00: 00 01-16 16:59 :00 No [id number] 1000mg [facility] cefTRIAXone (ROCEPHIN) injection 1,000 mg 01-14 18:30: 00 01-16 20:35 :00 No [id number] 1000mg 1,000 mg, Intramuscu lar, ONCE, 1 dose, On Mon01/15/24 at 1330, LUIS
Re ason for Anti-Infec tive: Documented Infection< br>Documen derek Infection Site: Urine
D uration of Therapy: Other (see Comments) [facility] hydrOXYzine 25 mg tablet 01-14 00:00: 00 Yes [id number] 50mg Take 2 tablets by mouth every 8 (eight) hours as needed for Anxiety. Take 2 tablets nightly as needed for Insomnia [facility] LOVAZA, omega-3-aci d ethyl esters, 1 gram capsule 01-14 00:00: 00 Yes [id number] 2g Take 2 capsules by mouth in the morning and 2 capsules in the evening. Take with meals. [facility] cyanocobala min 1,000 mcg/mL injection 01-14 00:00: 00 Yes [id number] 1000ug inject 1 mL under the skin weekly. [facility] Syringe with Needle, Safety (3CC SAFETY SYRINGE 25GX5/8") 3 mL 25 gauge x 5/8" Syrg 01-14 00:00: 00 Yes [id number] Use as directed [facility] terconazole 0.8 % vaginal cream 01-14 00:00: 00 Yes [id number] 1{appli cator} Insert 1 Applicator into vagina at bedtime. [facility] glyBURIDE 2.5 mg tablet 01-11 00:00: 00 Yes [id number] 2.5mg Take 1 tablet by mouth every morning. [facility] lisinopriL- hydrochloro thiazide 10-12.5 mg per tablet 01-11 00:00: 00 Yes [id number] 1{tbl} Take 1 tablet by mouth in the morning. [facility] metoprolol succinate XL 100 mg 24 hr tablet 01-11 00:00: 00 Yes [id number] 100mg Take 1 tablet by mouth in the morning. [facility] GLYBURIDE 2.5 mg tablet 01-08 00:00: 00 01-11 00:00 :00 No [id number] 2.5mg TAKE 1 TABLET BY MOUTH ONCE DAILY IN THE MORNING [facility] clotrimazol e 1 % vaginal cream 12-26 00:00: 00 Yes [id number] 1{appli cator} Insert 1 Applicator into vagina at bedtime. [facility] ondansetron 4 mg disintegrat ing tablet 12-18 00:00: 00 Yes [id number] 4mg Take 1 tablet by mouth every 8 (eight) hours as needed for Nausea and Vomiting (N/V). [facility] clindamycin 150 mg capsule 11-27 00:00: 00 12-08 04:59 :00 No [id number] 450mg Take 3 capsules by mouth in the morning and 3 capsules at noon and 3 capsules in the evening. Do all this for 10 days. [facility] clotrimazol e 1 % vaginal cream 11-27 00:00: 00 12-05 04:59 :00 No [id number] 1{appli cator} Insert 1 Applicator into vagina at bedtime for 7 days. [facility] valACYclovi r (VALTREX) 500 mg tablet 11-13 00:00: 00 Yes [id number] 500mg Take 1 tablet by mouth in the morning and 1 tablet in the evening. [facility] hydrOXYzine 25 mg tablet 11-13 00:00: 00 01-14 00:00 :00 No [id number] 25mg Take 1 tablet by mouth 3 (three) times daily as needed for Anxiety. Take 2 tablets nightly as needed for Insomnia [facility] LOVAZA, omega-3-aci d ethyl esters, 1 gram capsule 10-10 00:00: 00 01-14 00:00 :00 No [id number] 2g Take 2 capsules by mouth in the morning and 2 capsules in the evening. Take with meals. [facility] semaglutide (OZEMPIC) 0.25 mg or 0.5 mg (2 mg/3 mL) PnIj 10-06 00:00: 00 Yes [id number] .5mg inject 0.5 mg under the skin weekly. [facility] flash glucose sensor (FREESTYLE SNEHAL 2 SENSOR) Kit 10-06 00:00: 00 Yes [id number] 1{each} 1 Each every 14 (fourteen) days. [facility] flash glucose scanning reader (FREESTYLE SNEHAL 2 READER) Misc 10-06 00:00: 00 Yes [id number] 1{each} 1 Each every 6 (six) hours. [facility] Blood-Gluco se Sensor (DEXCOM G6 SENSOR) Sasha 10-06 00:00: 00 Yes Use as directed to check blood sugars E11.9 [facility] Blood-Gluco se Transmitter (DEXCOM G6 TRANSMITTER ) Sasha 10-06 00:00: 00 Yes Use as directed to check blood sugars E11.9 [facility] Fenofibrate 160 mg tablet 10-03 00:00: 00 Yes [id number] 160mg Take 1 tablet by mouth in the morning. [facility] lisinopriL- hydrochloro thiazide 10-12.5 mg per tablet 10-03 00:00: 00 01-11 00:00 :00 No [id number] 1{tbl} Take 1 tablet by mouth in the morning. [facility] metoprolol succinate XL 100 mg 24 hr tablet 10-03 00:00: 00 01-11 00:00 :00 No [id number] 100mg Take 1 tablet by mouth in the morning. [facility] LOVAZA, omega-3-aci d ethyl esters, 1 gram capsule 1-09 00:00: 00 10-10 00:00 :00 No [id number] 2g Take 2 capsules by mouth in the morning and 2 capsules in the evening. Take with meals. Add one capsule at lunch [facility] estradioL 0.5 mg tablet 1- 00:00: 00 Yes [id number] .5mg Take 1 tablet by mouth in the morning. [facility] medroxyPROG ESTERone 2.5 mg tablet - 00:00: 00 Yes [id number] 2.5mg Take 1 tablet by mouth in the morning. [facility] terconazole 0.8 % vaginal cream 1- 00:00: 00 01-14 00:00 :00 No [id number] 1{appli cator} Insert 1 Applicator into vagina at bedtime. [facility] cefdinir 300 mg capsule 1- 00:00: 00 10-10 05:59 :00 No [id number] 300mg Take 1 capsule by mouth every 12 (twelve) hours for 10 days. [facility] semaglutide (OZEMPIC) 0.25 mg or 0.5 mg (2 mg/3 mL) PnIj 2022-09 00:00: 00 10-06 00:00 :00 No [id number] Start 0.25mg SC qWeek x 4 weeks, then increase to 0.5mg SC qWeek x 4 weeks, then increase to 1mg qWeek [facility] flash glucose sensor (FREESTYLE SNEHAL 2 SENSOR) Kit 2022-09 2- 00:00: 00 10-06 00:00 :00 No [id number] 1{each} 1 Each every 14 (fourteen) days. [facility] flash glucose scanning reader (FREESTYLE SNEHAL 14 DAY READER) Misc 2022-09 2- 00:00: 00 10-06 00:00 :00 No [id number] Take 1 Box in the morning and 1 Box in the evening. E11.65: check home blood glucose BID (brand approval by insurance) [facility] terconazole 0.4 % vaginal cream 2022-09 00:00: 00 Yes [id number] 1{appli cator} Insert 1 Applicator into vagina at bedtime. [facility] molnupiravi r 200 mg capsule 2022-09 00:00: 00 01-11 00:00 :00 No [id number] 800mg Take 4 capsules by mouth every 12 (twelve) hours. [facility] promethazin e-dextromet horphan 6.25-15 mg/5 mL syrup 2022-09 00:00: 00 01-11 00:00 :00 No [id number] 5mL Take 5 mL by mouth 4 (four) times daily as needed for Cough. [facility] ondansetron 4 mg disintegrat ing tablet 2022-09 00:00: 00 12-17 00:00 :00 No [id number] 4mg Take 1 tablet by mouth every 8 (eight) hours as needed for Nausea and Vomiting (N/V). [facility] cefdinir 300 mg capsule 2022-09 00:00: 00 08-15 05:59 :00 No [id number] 300mg Take 1 capsule by mouth every 12 (twelve) hours for 10 days. [facility] terconazole 0.8 % vaginal cream 2022-09 0-16 00:00: 00 08-04 00:00 :00 No [id number] 1{appli cator} Insert 1 Applicator into vagina at bedtime. [facility] ondansetron 4 mg disintegrat ing tablet 06-21 00:00: 00 12-18 00:00 :00 No [id number] 4mg Take 1 tablet by mouth every 8 (eight) hours as needed for Nausea and Vomiting (N/V). [facility] semaglutide (OZEMPIC) 1 mg/dose (4 mg/3 mL) PnIj 06-21 00:00: 00 10-06 00:00 :00 No [id number] 1mg inject 1 mg under the skin weekly. [facility] flash glucose sensor (FREESTYLE SNEHAL 2 SENSOR) Kit 05-05 00:00: 00 09-01 00:00 :00 No [id number] 1{each} 1 Each every 14 (fourteen) days. [facility] cyanocobala min (DODEX) injection 2,000 mcg 04-28 21:45: 00 04-28 21:20 :00 No [id number] 2000ug 2,000 mcg, Intramuscu lar, ONCE, 1 dose, On Mon04/28/23 at 1645, Routine [facility] Diclofenac Sodium (VOLTAREN) 1 % gel 04-28 00:00: 00 Yes [id number] Take 2-4 grams three times a day as needed for pain [facility] cyanocobala min 1,000 mcg/mL injection 04-28 00:00: 00 01-14 00:00 :00 No [id number] 1000ug inject 1 mL under the skin weekly. [facility] Syringe with Needle, Safety (3CC SAFETY SYRINGE 25GX5/8") 3 mL 25 gauge x 5/8" Syrg 04-28 00:00: 00 01-14 00:00 :00 No [id number] Use as directed [facility] hydrOXYzine 25 mg tablet 04-28 00:00: 00 11-13 00:00 :00 No [id number] 25mg Take 1 tablet by mouth 3 (three) times daily as needed for Anxiety. Take 2 tablets nightly as needed for Insomnia [facility] flash glucose sensor (FREESTYLE SNEHAL 14 DAY SENSOR) Kit 04-28 00:00: 00 10-06 00:00 :00 No [id number] 1{kit} Take 1 Kit in the morning and 1 Kit at noon and 1 Kit in the evening. [facility] terconazole 0.8 % vaginal cream 04-28 00:00: 00 07-10 00:00 :00 No [id number] 1{appli cator} Insert 1 Applicator into vagina at bedtime. [facility] semaglutide (OZEMPIC) 1 mg/dose (4 mg/3 mL) PnIj 04-28 00:00: 00 06-21 00:00 :00 No [id number] 1mg inject 1 mg under the skin weekly. [facility] amoxicillin -clavulanat e (AUGMENTIN) 875-125 mg per tablet 04-28 00:00: 00 05-09 04:59 :00 No [id number] 1{tbl} Take 1 tablet by mouth in the morning and 1 tablet in the evening. Do all this for 10 days. [facility] flash glucose sensor (FREESTYLE SNEHAL 2 SENSOR) Kit 04-28 00:00: 00 05-05 00:00 :00 No [id number] 1{each} 1 Each every 14 (fourteen) days. [facility] dexamethaso ne sod phos PF injection 10 mg 03-24 23:15: 00 03-24 22:57 :00 No [id number] 10mg [facility] bromphenira mine-pseudo ephedrine-D M (BROMFED DM) 2-30-10 mg/5 mL syrup 03-24 00:00: 00 04-28 00:00 :00 No [id number] 5mL Take 5 mL by mouth 3 (three) times daily as needed for Cough or Cold symptoms. [facility] cephALEXin (KEFLEX) 500 mg capsule 03-24 00:00: 00 04-01 04:59 :00 No [id number] 500mg Take 1 capsule by mouth 4 (four) times daily for 7 days. [facility] predniSONE 20 mg tablet 03-24 00:00: 00 03-30 04:59 :00 No [id number] 20mg Take 1 tablet by mouth in the morning for 5 days. [facility] lisinopriL- hydrochloro thiazide 10-12.5 mg per tablet 2023-0 6-16 00:00: 00 10-03 00:00 :00 No [id number] 1{tbl} Take 1 tablet by mouth in the morning. [facility] lisinopriL- hydrochloro thiazide 10-12.5 mg per tablet 6-15 00:00: 00 Yes [id number] 1{tbl} Take 1 tablet by mouth in the morning. [facility] cyanocobala min (DODEX) injection 2,000 mcg 5-19 17:45: 00 02-16 17:44 :00 No [id number] 2000ug [facility] ciprofloxac in HCl (CIPRO) 500 mg tablet 5-19 00:00: 00 02-21 04:59 :00 No [id number] 500mg Take 1 tablet by mouth every 12 (twelve) hours for 10 days. [facility] lisinopriL- hydrochloro thiazide 10-12.5 mg per tablet 4-20 00:00: 00 03-09 00:00 :00 No [id number] 1{tbl} Take 1 tablet by mouth in the morning. [facility] cyanocobala min (DODEX) injection 2,000 mcg 2022-0 3-29 20:30: 00 04-28 20:36 :06 No [id number] 2000ug [facility] cyanocobala min (DODEX) injection 2,000 mcg 2022-0 3-27 18:30: 00 12-19 17:25 :00 No [id number] 2000ug [facility] glyBURIDE 2.5 mg tablet 0 3-27 00:00: 00 01-08 00:00 :00 No [id number] 2.5mg Take 1 tablet by mouth every morning. [facility] metoprolol tartrate 100 mg tablet 2022-0 3-27 00:00: 00 10-03 00:00 :00 No [id number] 100mg Take 1 tablet by mouth in the morning. [facility] LOVAZA, omega-3-aci d ethyl esters, 1 gram capsule 12-19 00:00: 00 10-03 00:00 :00 No [id number] 2g Take 2 capsules by mouth in the morning and 2 capsules in the evening. Take with meals. Add one capsule at lunch [facility] Fenofibrate 160 mg tablet 12-19 00:00: 00 10-03 00:00 :00 No [id number] 160mg Take 1 tablet by mouth in the morning. [facility] semaglutide (OZEMPIC) 1 mg/dose (4 mg/3 mL) PnIj 12-19 00:00: 00 04-28 00:00 :00 No [id number] 1mg inject 1 mg under the skin weekly. [facility] lisinopriL- hydrochloro thiazide 20-25 mg per tablet 12-19 00:00: 00 01-12 00:00 :00 No [id number] 1{tbl} Take 1 tablet by mouth in the morning. [facility] Fenofibrate 160 mg tablet 12-05 00:00: 00 12-19 00:00 :00 No [id number] 160mg Take 1 tablet by mouth in the morning. [facility] glyBURIDE 2.5 mg tablet 11-28 00:00: 00 12-19 00:00 :00 No 2.5mg Take 1 tablet by mouth every morning. [facility] albuterol 90 mcg/actuati on inhaler 11-23 00:00: 00 Yes [id number] 2{puff} Inhale 2 Puffs every 6 (six) hours as needed for Wheezing, Shortness of Breath or Chest tightness. [facility] valACYclovi r (VALTREX) 500 mg tablet 10-06 00:00: 00 11-13 00:00 :00 No [id number] 500mg Take 1 tablet by mouth in the morning and 1 tablet in the evening. [facility] amoxicillin -clavulanat e (AUGMENTIN) 875-125 mg per tablet 2021-09 00:00: 00 09-28 05:59 :00 No [id number] 1{tbl} Take 1 tablet by mouth in the morning and 1 tablet in the evening. Do all this for 7 days. [facility] sulfamethox azole-trime thoprim (BACTRIM DS) 800-160 mg per tablet 2021-09 2- 00:00: 00 12-19 00:00 :00 No [id number] 1{tbl} Take 1 tablet by mouth in the morning and 1 tablet in the evening. [facility] ibuprofen 600 mg tablet 2021-09 2- 00:00: 00 12-19 00:00 :00 No [id number] 600mg Take 1 tablet by mouth every 6 (six) hours as needed for Pain (scale 4-6). [facility] mupirocin 2 % ointment 2021-09 2 00:00: 00 12-19 00:00 :00 No [id number] Apply to area(s) 3 (three) times daily. [facility] lisinopriL- hydrochloro thiazide 20-25 mg per tablet 2021-09 0-20 00:00: 00 12-19 00:00 :00 No [id number] 1{tbl} Take 1 tablet by mouth in the morning. [facility] LOVAZA, omega-3-aci d ethyl esters, 1 gram capsule 2021-09 0-20 00:00: 00 12-19 00:00 :00 No [id number] 2g Take 2 capsules by mouth in the morning and 2 capsules in the evening. Take with meals. Add one capsule at lunch [facility] metoprolol tartrate 100 mg tablet 2021-09 0-20 00:00: 00 12-19 00:00 :00 No [id number] 100mg Take 1 tablet by mouth in the morning and 1 tablet in the evening. [facility] ampicillin 500 mg capsule 9-26 00:00: 00 06-28 04:59 :00 No [id number] 500mg Take 1 capsule by mouth every 6 (six) hours for 7 days. [facility] phenazopyri dine (PYRIDIUM) 200 mg tablet 06-02 00:00: 00 12-19 00:00 :00 No [id number] 200mg Take 1 tablet by mouth in the morning and 1 tablet at noon and 1 tablet in the evening. Take after meals. [facility] levoFLOXaci n 750 mg tablet 05-31 00:00: 00 12-19 00:00 :00 No [id number] 750mg Take 1 tablet by mouth every 24 (twenty-fo ur) hours. [facility] amoxicillin -clavulanat e (AUGMENTIN) 875-125 mg per tablet 05-13 00:00: 00 09-20 00:00 :00 No [id number] 1{tbl} Take 1 tablet by mouth in the morning and 1 tablet in the evening. [facility] phenazopyri dine (PYRIDIUM) 200 mg tablet 05-13 00:00: 06-02 00:00 :00 No [id number] 200mg Take 1 tablet by mouth in the morning and 1 tablet at noon and 1 tablet in the evening. Take after meals. [facility] semaglutide (OZEMPIC SC) -13 00:00: 00 12-19 00:00 :00 No 1mg inject 1 mg under the skin weekly. [facility] estradioL 0.5 mg tablet 03-31 00:00: 00 09-29 00:00 :00 No [id number] .5mg Take 1 tablet by mouth daily. [facility] medroxyPROG ESTERone 2.5 mg tablet -07 00:00: 00 09-29 00:00 :00 No [id number] 2.5mg Take 1 tablet by mouth daily. [facility] Fenofibrate 160 mg tablet 6-15 00:00: 00 12-19 00:00 :00 No [id number] 160mg Take 1 tablet by mouth daily. [facility] metoprolol tartrate 100 mg tablet 615 00:00: 00 07-14 00:00 :00 No [id number] 100mg Take 1 tablet by mouth 2 (two) times daily. [facility] LOVAZA, omega-3-aci d ethyl esters, 1 gram capsule 15 00:00: 00 07-14 00:00 :00 No [id number] 2g Take 2 capsules by mouth 2 (two) times daily with meals. Add one capsule at lunch [facility] LISINOPRIL- HYDROCHLORO THIAZIDE 20-25 mg per tablet 614 00:00: 00 07-14 00:00 :00 No [id number] Take 1 tablet by mouth once daily [facility] ondansetron 4 mg disintegrat ing tablet -09 00:00: 00 02-10 00:00 :00 No [id number] 4mg Take 1 tablet by mouth every 8 (eight) hours as needed for Nausea and Vomiting (N/V). [facility] Multivitami ns with Fluoride (MULTI-MITZY MIN ORAL) 2020-09 13:33: 43 Yes Take by mouth. [facility] traZODone 100 mg tablet 2020-09 13:33: 43 07-21 00:00 :00 No 100mg Take 100 mg by mouth at bedtime. [facility] valACYclovi r (VALTREX) 500 mg tablet 2020-09 00:00: 00 10-06 00:00 :00 No [id number] 500mg Take 1 tablet by mouth 2 (two) times daily. [facility] fenofibrate 160 mg tablet 2020-09 0 00:00: 00 09-24 05:59 :00 No [id number] 160mg Take 1 tablet by mouth daily for 90 days. [facility] LOVAZA, omega-3-aci d ethyl esters, 1 gram capsule 2020-09 0 00:00: 00 09-24 05:59 :00 No [id number] 2g Take 2 capsules by mouth 2 (two) times daily for 90 days. [facility] VALACYCLOVI R 500 mg tablet 05-26 00:00: 00 Yes [id number] TAKE 1 TABLET BY MOUTH EVERY DAY [facility] ondansetron (ZOFRAN ODT) 8 mg disintegrat ing tablet 05-26 00:00: 00 07-21 00:00 :00 No [id number] 8mg Take 1 tablet by mouth every 8 (eight) hours as needed for Nausea and Vomiting (N/V). [facility] estradioL 0.5 mg tablet 12-17 00:00: 00 01-10 00:00 :00 No [id number] .5mg Take 1 tablet by mouth daily. [facility] medroxyPROG ESTERone 2.5 mg tablet 12-17 00:00: 00 01-10 00:00 :00 No [id number] 2.5mg Take 1 tablet by mouth daily. [facility] JARDIANCE 25 mg Tab 11-18 00:00: 00 05-13 00:00 :00 No TAKE 1 TABLET BY MOUTH ONCE DAILY FOR 30 DAYS [facility] SERTraline 100 mg tablet 11-18 00:00: 00 07-21 00:00 :00 No [facility] Fenofibrate 160 mg tablet - 00:00: 00 06-25 00:00 :00 No TAKE 1 TABLET BY MOUTH ONCE DAILY WITH A MEAL FOR 30 DAYS [facility] Cholecalcif davi, Vitamin D3, 1,250 mcg (50,000 unit) capsule 11-15 00:00: 00 Yes TAKE 1 CAPSULE BY MOUTH EVERY WEEK ON MONDAY [facility] lisinopriL- hydrochloro thiazide 20-25 mg per tablet 2019-09 00:00: 00 08-31 00:00 :00 No [id number] 1{tbl} Take 1 tablet by mouth daily. [facility] metoprolol tartrate 100 mg tablet 2019-09 00:00: 00 08-31 00:00 :00 No [id number] 100mg Take 1 tablet by mouth daily. [facility] cefUROXime 250 mg tablet 2019-09 00:00: 00 07-21 00:00 :00 No [id number] 250mg Take 1 tablet by mouth 2 (two) times daily. [facility] terconazole 0.8 % vaginal cream 2019-09 00:00: 07-21 00:00 :00 No [id number] 1{appli cator} Insert 1 Applicator into vagina at bedtime. [facility] fenofibrate 145 mg tablet 06-05 00:00: 06-24 00:00 :00 No [id number] 145mg Take 1 tablet by mouth at bedtime. [facility] 05-29 00:00: 00 Yes [id number] J40: Brochitis - Dispense # 1 Alejandro Respironic s (okay for alternativ e brand) for nebulizer treatment [facility] 05-29 00:00: 00 Yes [id number] J40: Brochitis - Dispense # 1 Alejandro Respironic s (okay for alternativ e brand) for nebulizer treatment [facility] ONETOUCH VERIO HIGH CONTROL Soln 2018-09 00:00: 00 Yes 10mg Take 10 mg by mouth. [facility] TOUJEO MAX U-300 SOLOSTAR 300 unit/mL (3 mL) InPn 2018-09 00:00: 00 05-13 00:00 :00 No INJECT 30 UNITS SUBCUTANEO USLY TWICE DAILY FOR 30 DAYS [facility] JARDIANCE 10 mg Tab 2018-09 00:00: 00 05-13 00:00 :00 No TAKE 1 TABLET BY MOUTH ONCE DAILY FOR 30 DAYS PLEASE STOP GLYXAMBI [facility] Insulin [place], Disposable, (BD ULTRAFINE III MINI PEN) 31 gauge x 3/16" Ndle 01-16 00:00: 00 Yes [id number] BID, DX:E11.9 [facility] blood sugar diagnostic (ONETOUCH VERIO) strip 01-16 00:00: 00 Yes Use as directed, TID, DX:E11.9 [facility] lancets [facility] 30 gauge Misc 01-16 00:00: 00 Yes Use as directed, TID, DX:E11.9 [facility] Insulin [place], Disposable, (BD ULTRAFINE III MINI PEN) 31 gauge x 3/16" Nd 01-16 00:00: 00 Yes [id number] BID, DX:E11.9 [facility] blood sugar diagnostic [facility] strip 01-16 00:00: 00 Yes Use as directed, TID, DX:E11.9 [facility] LOVAZA, omega-3-aci d ethyl esters, 1 gram capsule 12-19 00:00: 00 06-25 00:00 :00 No [id number] 2g Take 2 capsules by mouth 2 (two) times daily. [facility]: 00 Yes Use to check blood glucose 3X daily. Dx Code E11.9 [facility] 00:00: 00 Yes Use to check blood glucose 3X daily. Dx Code E11.9 [facility] Immunizations Ordered Immunization Name Filled Immunization Name Date Status Comments Source Influenza Virus Vaccine 2021-07-01 00:00:00 Completed [facility] Influenza Virus Vaccine 2021-07-01 00:00:00 Completed [facility] Influenza Virus Vaccine 2021-07-01 00:00:00 Completed [facility] Influenza Virus Vaccine 2021-07-01 00:00:00 Completed [facility] Influenza Virus Vaccine 2021-07-01 00:00:00 Completed [facility] Influenza Virus Vaccine 2021-07-01 00:00:00 Completed [facility] Influenza Virus Vaccine 2021-07-01 00:00:00 Completed [facility] Influenza Virus Vaccine 2021-07-01 00:00:00 Completed [facility] Influenza Virus Vaccine 2021-07-01 00:00:00 Completed [facility] Influenza Virus Vaccine 2021-07-01 00:00:00 Completed [facility] Influenza Virus Vaccine 2021-07-01 00:00:00 Completed [facility] Influenza Virus Vaccine 2021-07-01 00:00:00 Completed [facility] Influenza Virus Vaccine 2021-07-01 00:00:00 Completed [facility] Influenza Virus Vaccine 2021-07-01 00:00:00 Completed [facility] Influenza Virus Vaccine 2021-07-01 00:00:00 Completed [facility] Influenza Virus Vaccine 2021-07-01 00:00:00 Completed [facility] Influenza Virus Vaccine 2021-07-01 00:00:00 Completed [facility] Influenza Virus Vaccine 2021-07-01 00:00:00 Completed [facility] Influenza Virus Vaccine 2021-07-01 00:00:00 Completed [facility] Influenza Virus Vaccine 2021-07-01 00:00:00 Completed [facility] Influenza Virus Vaccine 2021-07-01 00:00:00 Completed [facility] Influenza Virus Vaccine 2021-07-01 00:00:00 Completed [facility] Influenza Virus Vaccine 2021-07-01 00:00:00 Completed [facility] Influenza Virus Vaccine 2021-07-01 00:00:00 Completed [facility] Influenza Virus Vaccine 2021-07-01 00:00:00 Completed [facility] Influenza Virus Vaccine 2021-07-01 00:00:00 Completed [facility] Influenza Virus Vaccine 2021-07-01 00:00:00 Completed [facility] Influenza Virus Vaccine 2021-07-01 00:00:00 Completed [facility] Influenza Virus Vaccine 2021-07-01 00:00:00 Completed [facility] Influenza Virus Vaccine 2021-07-01 00:00:00 Completed [facility] Influenza Virus Vaccine 2021-07-01 00:00:00 Completed [facility] Influenza Virus Vaccine 2021-07-01 00:00:00 Completed [facility] Influenza Virus Vaccine 2021-07-01 00:00:00 Completed [facility] Influenza Virus Vaccine 2021-07-01 00:00:00 Completed [facility] Influenza Virus Vaccine 2021-07-01 00:00:00 Completed [facility] Influenza Virus Vaccine 2021-07-01 00:00:00 Completed [facility] Influenza Virus Vaccine 2021-07-01 00:00:00 Completed [facility] Influenza Virus Vaccine 2021-07-01 00:00:00 Completed [facility] Influenza Virus Vaccine 2021-07-01 00:00:00 Completed [facility] Influenza Virus Vaccine 2021-07-01 00:00:00 Completed [facility] Influenza Virus Vaccine 2021-07-01 00:00:00 Completed [facility] Influenza Virus Vaccine 2021-07-01 00:00:00 Completed [facility] Influenza Virus Vaccine 2021-07-01 00:00:00 Completed [facility] Influenza Virus Vaccine 2021-07-01 00:00:00 Completed [facility] Influenza Virus Vaccine 2021-07-01 00:00:00 Completed [facility] Influenza Virus Vaccine 2021-07-01 00:00:00 Completed [facility] Influenza Virus Vaccine 2021-07-01 00:00:00 Completed [facility] Influenza Virus Vaccine 2021-07-01 00:00:00 Completed [facility] Influenza Virus Vaccine 2021-07-01 00:00:00 Completed [facility] Influenza Virus Vaccine 2021-07-01 00:00:00 Completed [facility] Influenza Virus Vaccine 2021-07-01 00:00:00 Completed [facility] Influenza Virus Vaccine 2021-07-01 00:00:00 Completed [facility] Influenza Virus Vaccine 2021-07-01 00:00:00 Completed [facility] Influenza Virus Vaccine 2021-07-01 00:00:00 Completed [facility] Influenza Virus Vaccine 2021-07-01 00:00:00 Completed [facility] Influenza Virus Vaccine 2021-07-01 00:00:00 Completed [facility] Influenza Virus Vaccine 2021-07-01 00:00:00 Completed [facility] Influenza Virus Vaccine 2021-07-01 00:00:00 Completed [facility] Influenza Virus Vaccine 2021-07-01 00:00:00 Completed [facility] Influenza Virus Vaccine 2021-07-01 00:00:00 Completed [facility] Influenza Virus Vaccine 2021-07-01 00:00:00 Completed [facility] Influenza Virus Vaccine 2021-07-01 00:00:00 Completed [facility] Influenza Virus Vaccine 2021-07-01 00:00:00 Completed [facility] Influenza Virus Vaccine 2021-07-01 00:00:00 Completed [facility] Influenza Virus Vaccine 2021-07-01 00:00:00 Completed [facility] SARS-COV-2 COVID-19 MODERNA VACCINE 2021-01-21 00:00:00 Completed [facility] SARS-COV-2 COVID-19 MODERNA VACCINE 2021-01-21 00:00:00 Completed [facility] SARS-COV-2 COVID-19 MODERNA VACCINE 2021-01-21 00:00:00 Completed [facility] SARS-COV-2 COVID-19 MODERNA 12+ YRS VACCINE 2021-01-21 00:00:00 Completed [facility] SARS-COV-2 COVID-19 MODERNA 12+ YRS VACCINE 2021-01-21 00:00:00 Completed [facility] SARS-COV-2 COVID-19 MODERNA 12+ YRS VACCINE 2021-01-21 00:00:00 Completed [facility] SARS-COV-2 COVID-19 MODERNA 12+ YRS VACCINE 2021-01-21 00:00:00 Completed [facility] SARS-COV-2 COVID-19 MODERNA 12+ YRS VACCINE 2021-01-21 00:00:00 Completed [facility] SARS-COV-2 COVID-19 MODERNA 12+ YRS VACCINE 2021-01-21 00:00:00 Completed [facility] SARS-COV-2 COVID-19 MODERNA 12+ YRS VACCINE 2021-01-21 00:00:00 Completed [facility] SARS-COV-2 COVID-19 MODERNA 12+ YRS VACCINE 2021-01-21 00:00:00 Completed [facility] SARS-COV-2 COVID-19 MODERNA 12+ YRS VACCINE 2021-01-21 00:00:00 Completed [facility] SARS-COV-2 COVID-19 MODERNA 12+ YRS VACCINE 2021-01-21 00:00:00 Completed [facility] SARS-COV-2 COVID-19 MODERNA 12+ YRS VACCINE 2021-01-21 00:00:00 Completed [facility] SARS-COV-2 COVID-19 MODERNA 12+ YRS VACCINE 2021-01-21 00:00:00 Completed [facility] SARS-COV-2 COVID-19 MODERNA 12+ YRS VACCINE 2021-01-21 00:00:00 Completed [facility] SARS-COV-2 COVID-19 MODERNA 12+ YRS VACCINE 2021-01-21 00:00:00 Completed [facility] SARS-COV-2 COVID-19 MODERNA 12+ YRS VACCINE 2021-01-21 00:00:00 Completed [facility] SARS-COV-2 COVID-19 MODERNA 12+ YRS VACCINE 2021-01-21 00:00:00 Completed [facility] SARS-COV-2 COVID-19 MODERNA 12+ YRS VACCINE 2021-01-21 00:00:00 Completed [facility] SARS-COV-2 COVID-19 MODERNA 12+ YRS VACCINE 2021-01-21 00:00:00 Completed [facility] SARS-COV-2 COVID-19 MODERNA 12+ YRS VACCINE 2021-01-21 00:00:00 Completed [facility] SARS-COV-2 COVID-19 MODERNA 12+ YRS VACCINE 2021-01-21 00:00:00 Completed [facility] SARS-COV-2 COVID-19 MODERNA 12+ YRS VACCINE 2021-01-21 00:00:00 Completed [facility] SARS-COV-2 COVID-19 MODERNA 12+ YRS VACCINE 2021-01-21 00:00:00 Completed [facility] SARS-COV-2 COVID-19 MODERNA 12+ YRS VACCINE 2021-01-21 00:00:00 Completed [facility] SARS-COV-2 COVID-19 MODERNA 12+ YRS VACCINE 2021-01-21 00:00:00 Completed [facility] SARS-COV-2 COVID-19 MODERNA 12+ YRS VACCINE 2021-01-21 00:00:00 Completed [facility] SARS-COV-2 COVID-19 MODERNA 12+ YRS VACCINE 2021-01-21 00:00:00 Completed [facility] SARS-COV-2 COVID-19 MODERNA 12+ YRS VACCINE 2021-01-21 00:00:00 Completed [facility] SARS-COV-2 COVID-19 MODERNA 12+ YRS VACCINE 2021-01-21 00:00:00 Completed [facility] SARS-COV-2 COVID-19 MODERNA 12+ YRS VACCINE 2021-01-21 00:00:00 Completed [facility] SARS-COV-2 COVID-19 MODERNA 12+ YRS VACCINE 2021-01-21 00:00:00 Completed [facility] SARS-COV-2 COVID-19 MODERNA 12+ YRS VACCINE 2021-01-21 00:00:00 Completed [facility] SARS-COV-2 COVID-19 MODERNA 12+ YRS VACCINE 2021-01-21 00:00:00 Completed [facility] SARS-COV-2 COVID-19 MODERNA 12+ YRS VACCINE 2021-01-21 00:00:00 Completed [facility] SARS-COV-2 COVID-19 MODERNA 12+ YRS VACCINE 2021-01-21 00:00:00 Completed [facility] SARS-COV-2 COVID-19 MODERNA 12+ YRS VACCINE 2021-01-21 00:00:00 Completed [facility] SARS-COV-2 COVID-19 MODERNA 12+ YRS VACCINE 2021-01-21 00:00:00 Completed [facility] SARS-COV-2 COVID-19 MODERNA 12+ YRS VACCINE 2021-01-21 00:00:00 Completed [facility] SARS-COV-2 COVID-19 MODERNA 12+ YRS VACCINE 2021-01-21 00:00:00 Completed [facility] SARS-COV-2 COVID-19 MODERNA 12+ YRS VACCINE 2021-01-21 00:00:00 Completed [facility] SARS-COV-2 COVID-19 MODERNA 12+ YRS VACCINE 2021-01-21 00:00:00 Completed [facility] SARS-COV-2 COVID-19 MODERNA 12+ YRS VACCINE 2021-01-21 00:00:00 Completed [facility] SARS-COV-2 COVID-19 MODERNA 12+ YRS VACCINE 2021-01-21 00:00:00 Completed [facility] SARS-COV-2 COVID-19 MODERNA 12+ YRS VACCINE 2021-01-21 00:00:00 Completed [facility] SARS-COV-2 COVID-19 MODERNA 12+ YRS VACCINE 2021-01-21 00:00:00 Completed [facility] SARS-COV-2 COVID-19 MODERNA 12+ YRS VACCINE 2021-01-21 00:00:00 Completed [facility] SARS-COV-2 COVID-19 MODERNA 12+ YRS VACCINE 2021-01-21 00:00:00 [facility] [facility] [place] SARS-COV-2 COVID-19 MODERNA 12+ YRS VACCINE 2021-01-21 00:00:00 Completed [facility] SARS-COV-2 COVID-19 MODERNA 12+ YRS VACCINE 2021-01-21 00:00:00 Completed [facility] SARS-COV-2 COVID-19 MODERNA 12+ YRS VACCINE 2021-01-21 00:00:00 Completed [facility] SARS-COV-2 COVID-19 MODERNA 12+ YRS VACCINE 2021-01-21 00:00:00 Completed [facility] SARS-COV-2 COVID-19 MODERNA 12+ YRS VACCINE 2021-01-21 00:00:00 Completed [facility] SARS-COV-2 COVID-19 MODERNA 12+ YRS VACCINE 2021-01-21 00:00:00 Completed [facility] SARS-COV-2 COVID-19 MODERNA 12+ YRS VACCINE 2021-01-21 00:00:00 Completed [facility] SARS-COV-2 COVID-19 MODERNA 12+ YRS VACCINE 2021-01-21 00:00:00 Completed [facility] SARS-COV-2 COVID-19 MODERNA 12+ YRS VACCINE 2021-01-21 00:00:00 Completed [facility] SARS-COV-2 COVID-19 MODERNA 12+ YRS VACCINE 2021-01-21 00:00:00 Completed [facility] SARS-COV-2 COVID-19 MODERNA 12+ YRS VACCINE 2021-01-21 00:00:00 Completed [facility] SARS-COV-2 COVID-19 MODERNA 12+ YRS VACCINE 2021-01-21 00:00:00 Completed [facility] SARS-COV-2 COVID-19 MODERNA 12+ YRS VACCINE 2021-01-21 00:00:00 Completed [facility] SARS-COV-2 COVID-19 MODERNA 12+ YRS VACCINE 2021-01-21 00:00:00 Completed [facility] SARS-COV-2 COVID-19 MODERNA 12+ YRS VACCINE 2021-01-21 00:00:00 Completed [facility] SARS-COV-2 COVID-19 MODERNA 12+ YRS VACCINE 2021-01-21 00:00:00 Completed [facility] SARS-COV-2 COVID-19 MODERNA VACCINE 2020-09-22 00:00:00 Completed [facility] SARS-COV-2 COVID-19 MODERNA VACCINE 2020-09-22 00:00:00 Completed [facility] SARS-COV-2 COVID-19 MODERNA VACCINE 2020-09-22 00:00:00 Completed [facility] SARS-COV-2 COVID-19 MODERNA 12+ YRS VACCINE 2020-09-22 00:00:00 Completed [facility] SARS-COV-2 COVID-19 MODERNA 12+ YRS VACCINE 2020-09-22 00:00:00 Completed [facility] SARS-COV-2 COVID-19 MODERNA 12+ YRS VACCINE 2020-09-22 00:00:00 Completed [facility] SARS-COV-2 COVID-19 MODERNA 12+ YRS VACCINE 2020-09-22 00:00:00 Completed [facility] SARS-COV-2 COVID-19 MODERNA 12+ YRS VACCINE 2020-09-22 00:00:00 Completed [facility] SARS-COV-2 COVID-19 MODERNA 12+ YRS VACCINE 2020-09-22 00:00:00 Completed [facility] SARS-COV-2 COVID-19 MODERNA 12+ YRS VACCINE 2020-09-22 00:00:00 Completed [facility] SARS-COV-2 COVID-19 MODERNA 12+ YRS VACCINE 2020-09-22 00:00:00 Completed [facility] SARS-COV-2 COVID-19 MODERNA 12+ YRS VACCINE 2020-09-22 00:00:00 Completed [facility] SARS-COV-2 COVID-19 MODERNA 12+ YRS VACCINE 2020-09-22 00:00:00 Completed [facility] SARS-COV-2 COVID-19 MODERNA 12+ YRS VACCINE 2020-09-22 00:00:00 Completed [facility] SARS-COV-2 COVID-19 MODERNA 12+ YRS VACCINE 2020-09-22 00:00:00 Completed [facility] SARS-COV-2 COVID-19 MODERNA 12+ YRS VACCINE 2020-09-22 00:00:00 Completed [facility] SARS-COV-2 COVID-19 MODERNA 12+ YRS VACCINE 2020-09-22 00:00:00 Completed [facility] SARS-COV-2 COVID-19 MODERNA 12+ YRS VACCINE 2020-09-22 00:00:00 Completed [facility] SARS-COV-2 COVID-19 MODERNA 12+ YRS VACCINE 2020-09-22 00:00:00 Completed [facility] SARS-COV-2 COVID-19 MODERNA 12+ YRS VACCINE 2020-09-22 00:00:00 Completed [facility] SARS-COV-2 COVID-19 MODERNA 12+ YRS VACCINE 2020-09-22 00:00:00 Completed [facility] SARS-COV-2 COVID-19 MODERNA 12+ YRS VACCINE 2020-09-22 00:00:00 Completed [facility] SARS-COV-2 COVID-19 MODERNA 12+ YRS VACCINE 2020-09-22 00:00:00 Completed [facility] SARS-COV-2 COVID-19 MODERNA 12+ YRS VACCINE 2020-09-22 00:00:00 Completed [facility] SARS-COV-2 COVID-19 MODERNA 12+ YRS VACCINE 2020-09-22 00:00:00 Completed [facility] SARS-COV-2 COVID-19 MODERNA 12+ YRS VACCINE 2020-09-22 00:00:00 Completed [facility] SARS-COV-2 COVID-19 MODERNA 12+ YRS VACCINE 2020-09-22 00:00:00 Completed [facility] SARS-COV-2 COVID-19 MODERNA 12+ YRS VACCINE 2020-09-22 00:00:00 Completed [facility] SARS-COV-2 COVID-19 MODERNA 12+ YRS VACCINE 2020-09-22 00:00:00 Completed [facility] SARS-COV-2 COVID-19 MODERNA 12+ YRS VACCINE 2020-09-22 00:00:00 Completed [facility] SARS-COV-2 COVID-19 MODERNA 12+ YRS VACCINE 2020-09-22 00:00:00 Completed [facility] SARS-COV-2 COVID-19 MODERNA 12+ YRS VACCINE 2020-09-22 00:00:00 Completed [facility] SARS-COV-2 COVID-19 MODERNA 12+ YRS VACCINE 2020-09-22 00:00:00 Completed [facility] SARS-COV-2 COVID-19 MODERNA 12+ YRS VACCINE 2020-09-22 00:00:00 Completed [facility] SARS-COV-2 COVID-19 MODERNA 12+ YRS VACCINE 2020-09-22 00:00:00 Completed [facility] SARS-COV-2 COVID-19 MODERNA 12+ YRS VACCINE 2020-09-22 00:00:00 Completed [facility] SARS-COV-2 COVID-19 MODERNA 12+ YRS VACCINE 2020-09-22 00:00:00 Completed [facility] SARS-COV-2 COVID-19 MODERNA 12+ YRS VACCINE 2020-09-22 00:00:00 Completed [facility] SARS-COV-2 COVID-19 MODERNA 12+ YRS VACCINE 2020-09-22 00:00:00 Completed [facility] SARS-COV-2 COVID-19 MODERNA 12+ YRS VACCINE 2020-09-22 00:00:00 Completed [facility] SARS-COV-2 COVID-19 MODERNA 12+ YRS VACCINE 2020-09-22 00:00:00 Completed [facility] SARS-COV-2 COVID-19 MODERNA 12+ YRS VACCINE 2020-09-22 00:00:00 Completed [facility] SARS-COV-2 COVID-19 MODERNA 12+ YRS VACCINE 2020-09-22 00:00:00 Completed [facility] SARS-COV-2 COVID-19 MODERNA 12+ YRS VACCINE 2020-09-22 00:00:00 Completed [facility] SARS-COV-2 COVID-19 MODERNA 12+ YRS VACCINE 2020-09-22 00:00:00 Completed [facility] SARS-COV-2 COVID-19 MODERNA 12+ YRS VACCINE 2020-09-22 00:00:00 Completed [facility] SARS-COV-2 COVID-19 MODERNA 12+ YRS VACCINE 2020-09-22 00:00:00 Completed [facility] SARS-COV-2 COVID-19 MODERNA 12+ YRS VACCINE 2020-09-22 00:00:00 Completed [facility] SARS-COV-2 COVID-19 MODERNA 12+ YRS VACCINE 2020-09-22 00:00:00 Completed [facility] SARS-COV-2 COVID-19 MODERNA 12+ YRS VACCINE 2020-09-22 00:00:00 Completed [facility] SARS-COV-2 COVID-19 MODERNA 12+ YRS VACCINE 2020-09-22 00:00:00 Completed [facility] SARS-COV-2 COVID-19 MODERNA 12+ YRS VACCINE 2020-09-22 00:00:00 Completed [facility] SARS-COV-2 COVID-19 MODERNA 12+ YRS VACCINE 2020-09-22 00:00:00 Completed [facility] SARS-COV-2 COVID-19 MODERNA 12+ YRS VACCINE 2020-09-22 00:00:00 Completed [facility] SARS-COV-2 COVID-19 MODERNA 12+ YRS VACCINE 2020-09-22 00:00:00 Completed [facility] SARS-COV-2 COVID-19 MODERNA 12+ YRS VACCINE 2020-09-22 00:00:00 Completed [facility] SARS-COV-2 COVID-19 MODERNA 12+ YRS VACCINE 2020-09-22 00:00:00 Completed [facility] SARS-COV-2 COVID-19 MODERNA 12+ YRS VACCINE 2020-09-22 00:00:00 Completed [facility] SARS-COV-2 COVID-19 MODERNA 12+ YRS VACCINE 2020-09-22 00:00:00 Completed [facility] SARS-COV-2 COVID-19 MODERNA 12+ YRS VACCINE 2020-09-22 00:00:00 Completed [facility] SARS-COV-2 COVID-19 MODERNA 12+ YRS VACCINE 2020-09-22 00:00:00 Completed [facility] SARS-COV-2 COVID-19 MODERNA 12+ YRS VACCINE 2020-09-22 00:00:00 Completed [facility] SARS-COV-2 COVID-19 MODERNA 12+ YRS VACCINE 2020-09-22 00:00:00 Completed [facility] SARS-COV-2 COVID-19 MODERNA 12+ YRS VACCINE 2020-09-22 00:00:00 Completed [facility] SARS-COV-2 COVID-19 MODERNA 12+ YRS VACCINE 2020-09-22 00:00:00 Completed [facility] Influenza Virus Vaccine Quad .5 mL IM 6+ MO 2020-06-12 00:00:00 Completed [facility] Influenza Virus Vaccine Quad .5 mL IM 6+ MO 2020-06-12 00:00:00 Completed [facility] Influenza Virus Vaccine Quad .5 mL IM 6+ MO 2020-06-12 00:00:00 Completed [facility] Influenza Virus Vaccine Quad .5 mL IM 6+ MO 2020-06-12 00:00:00 Completed [facility] Influenza Virus Vaccine Quad .5 mL IM 6+ MO 2020-06-12 00:00:00 Completed [facility] Influenza Virus Vaccine Quad .5 mL IM 6+ MO 2020-06-12 00:00:00 Completed [facility] Influenza Virus Vaccine Quad .5 mL IM 6+ MO 2020-06-12 00:00:00 Completed [facility] Influenza Virus Vaccine Quad .5 mL IM 6+ MO 2020-06-12 00:00:00 Completed [facility] Influenza Virus Vaccine Quad .5 mL IM 6+ MO 2020-06-12 00:00:00 Completed [facility] Influenza Virus Vaccine Quad .5 mL IM 6+ MO 2020-06-12 00:00:00 Completed [facility] Influenza Virus Vaccine Quad .5 mL IM 6+ MO 2020-06-12 00:00:00 Completed [facility] Influenza Virus Vaccine Quad .5 mL IM 6+ MO 2020-06-12 00:00:00 Completed [facility] Influenza Virus Vaccine Quad .5 mL IM 6+ MO 2020-06-12 00:00:00 Completed [facility] Influenza Virus Vaccine Quad .5 mL IM 6+ MO 2020-06-12 00:00:00 Completed [facility] Influenza Virus Vaccine Quad .5 mL IM 6+ MO 2020-06-12 00:00:00 Completed [facility] Influenza Virus Vaccine Quad .5 mL IM 6+ MO 2020-06-12 00:00:00 Completed [facility] Influenza Virus Vaccine Quad .5 mL IM 6+ MO 2020-06-12 00:00:00 Completed [facility] Influenza Virus Vaccine Quad .5 mL IM 6+ MO 2020-06-12 00:00:00 Completed [facility] Influenza Virus Vaccine Quad .5 mL IM 6+ MO 2020-06-12 00:00:00 Completed [facility] Influenza Virus Vaccine Quad .5 mL IM 6+ MO 2020-06-12 00:00:00 Completed [facility] Influenza Virus Vaccine Quad .5 mL IM 6+ MO 2020-06-12 00:00:00 Completed [facility] Influenza Virus Vaccine Quad .5 mL IM 6+ MO 2020-06-12 00:00:00 Completed [facility] Influenza Virus Vaccine Quad .5 mL IM 6+ MO 2020-06-12 00:00:00 Completed [facility] Influenza Virus Vaccine Quad .5 mL IM 6+ MO 2020-06-12 00:00:00 Completed [facility] Influenza Virus Vaccine Quad .5 mL IM 6+ MO 2020-06-12 00:00:00 Completed [facility] Influenza Virus Vaccine Quad .5 mL IM 6+ MO 2020-06-12 00:00:00 Completed [facility] Influenza Virus Vaccine Quad .5 mL IM 6+ MO 2020-06-12 00:00:00 Completed [facility] Influenza Virus Vaccine Quad .5 mL IM 6+ MO 2020-06-12 00:00:00 Completed [facility] Influenza Virus Vaccine Quad .5 mL IM 6+ MO 2020-06-12 00:00:00 Completed [facility] Influenza Virus Vaccine Quad .5 mL IM 6+ MO 2020-06-12 00:00:00 Completed [facility] Influenza Virus Vaccine Quad .5 mL IM 6+ MO 2020-06-12 00:00:00 Completed [facility] Influenza Virus Vaccine Quad .5 mL IM 6+ MO 2020-06-12 00:00:00 Completed [facility] Influenza Virus Vaccine Quad .5 mL IM 6+ MO 2020-06-12 00:00:00 Completed [facility] Influenza Virus Vaccine Quad .5 mL IM 6+ MO 2020-06-12 00:00:00 Completed [facility] Influenza Virus Vaccine Quad .5 mL IM 6+ MO 2020-06-12 00:00:00 Completed [facility] Influenza Virus Vaccine Quad .5 mL IM 6+ MO 2020-06-12 00:00:00 Completed [facility] Influenza Virus Vaccine Quad .5 mL IM 6+ MO 2020-06-12 00:00:00 Completed [facility] Influenza Virus Vaccine Quad .5 mL IM 6+ MO 2020-06-12 00:00:00 Completed [facility] Influenza Virus Vaccine Quad .5 mL IM 6+ MO 2020-06-12 00:00:00 Completed [facility] Influenza Virus Vaccine Quad .5 mL IM 6+ MO 2020-06-12 00:00:00 Completed [facility] Influenza Virus Vaccine Quad .5 mL IM 6+ MO 2020-06-12 00:00:00 Completed [facility] Influenza Virus Vaccine Quad .5 mL IM 6+ MO 2020-06-12 00:00:00 Completed [facility] Influenza Virus Vaccine Quad .5 mL IM 6+ MO 2020-06-12 00:00:00 Completed [facility] Influenza Virus Vaccine Quad .5 mL IM 6+ MO 2020-06-12 00:00:00 Completed [facility] Influenza Virus Vaccine Quad .5 mL IM 6+ MO 2020-06-12 00:00:00 Completed [facility] Influenza Virus Vaccine Quad .5 mL IM 6+ MO 2020-06-12 00:00:00 Completed [facility] Influenza Virus Vaccine Quad .5 mL IM 6+ MO 2020-06-12 00:00:00 Completed [facility] Influenza Virus Vaccine Quad .5 mL IM 6+ MO 2020-06-12 00:00:00 Completed [facility] Influenza Virus Vaccine Quad .5 mL IM 6+ MO 2020-06-12 00:00:00 Completed [facility] Influenza Virus Vaccine Quad .5 mL IM 6+ MO 2020-06-12 00:00:00 Completed [facility] Influenza Virus Vaccine Quad .5 mL IM 6+ MO 2020-06-12 00:00:00 Completed [facility] Influenza Virus Vaccine Quad .5 mL IM 6+ MO 2020-06-12 00:00:00 Completed [facility] Influenza Virus Vaccine Quad .5 mL IM 6+ MO 2020-06-12 00:00:00 Completed [facility] Influenza Virus Vaccine Quad .5 mL IM 6+ MO 2020-06-12 00:00:00 Completed [facility] Influenza Virus Vaccine Quad .5 mL IM 6+ MO 2020-06-12 00:00:00 Completed [facility] Influenza Virus Vaccine Quad .5 mL IM 6+ MO 2020-06-12 00:00:00 Completed [facility] Influenza Virus Vaccine Quad .5 mL IM 6+ MO 2020-06-12 00:00:00 Completed [facility] Influenza Virus Vaccine Quad .5 mL IM 6+ MO 2020-06-12 00:00:00 Completed [facility] Influenza Virus Vaccine Quad .5 mL IM 6+ MO 2020-06-12 00:00:00 Completed [facility] Influenza Virus Vaccine Quad .5 mL IM 6+ MO 2020-06-12 00:00:00 Completed [facility] Influenza Virus Vaccine Quad .5 mL IM 6+ MO 2020-06-12 00:00:00 Completed [facility] Influenza Virus Vaccine Quad .5 mL IM 6+ MO 2020-06-12 00:00:00 Completed [facility] Influenza Virus Vaccine Quad .5 mL IM 6+ MO 2020-06-12 00:00:00 Completed [facility] Influenza Virus Vaccine Quad .5 mL IM 6+ MO 2020-06-12 00:00:00 Completed [facility] Influenza Virus Vaccine Quad .5 mL IM 6+ MO 2020-06-12 00:00:00 Completed [facility] Td 2019-07-16 00:00:00 Completed [facility] Td 2019-07-16 00:00:00 Completed [facility] Td 2019-07-16 00:00:00 Completed [facility] Td 2019-07-16 00:00:00 Completed [facility] Td 2019-07-16 00:00:00 Completed [facility] Td 2019-07-16 00:00:00 Completed [facility] Td 2019-07-16 00:00:00 Completed [facility] Td 2019-07-16 00:00:00 Completed [facility] Td 2019-07-16 00:00:00 Completed [facility] Td 2019-07-16 00:00:00 Completed [facility] Td 2019-07-16 00:00:00 Completed [facility] Td 2019-07-16 00:00:00 Completed [facility] Td 2019-07-16 00:00:00 Completed [facility] Td 2019-07-16 00:00:00 Completed [facility] Td 2019-07-16 00:00:00 Completed [facility] Td 2019-07-16 00:00:00 Completed [facility] Td 2019-07-16 00:00:00 Completed [facility] Td 2019-07-16 00:00:00 Completed [facility] Td 2019-07-16 00:00:00 Completed [facility] Td 2019-07-16 00:00:00 Completed [facility] Td 2019-07-16 00:00:00 Completed [facility] Td 2019-07-16 00:00:00 Completed [facility] Td 2019-07-16 00:00:00 Completed [facility] Td 2019-07-16 00:00:00 Completed [facility] Td 2019-07-16 00:00:00 Completed [facility] Td 2019-07-16 00:00:00 Completed [facility] TD, NOS 2019-07-16 00:00:00 Completed [facility] TD, NOS 2019-07-16 00:00:00 Completed [facility] TD, NOS 2019-07-16 00:00:00 Completed [facility] TD, NOS 2019-07-16 00:00:00 Completed [facility] TD, NOS 2019-07-16 00:00:00 Completed [facility] TD, NOS 2019-07-16 00:00:00 Completed [facility] TD, NOS 2019-07-16 00:00:00 Completed [facility] TD, NOS 2019-07-16 00:00:00 Completed [facility] TD, NOS 2019-07-16 00:00:00 Completed [facility] TD, NOS 2019-07-16 00:00:00 Completed [facility] TD, NOS 2019-07-16 00:00:00 Completed [facility] TD, NOS 2019-07-16 00:00:00 Completed [facility] TD, NOS 2019-07-16 00:00:00 Completed [facility] TD, NOS 2019-07-16 00:00:00 Completed [facility] TD, NOS 2019-07-16 00:00:00 Completed [facility] TD, NOS 2019-07-16 00:00:00 Completed [facility] TD, NOS 2019-07-16 00:00:00 Completed [facility] TD, NOS 2019-07-16 00:00:00 Completed [facility] TD, NOS 2019-07-16 00:00:00 Completed [facility] TD, NOS 2019-07-16 00:00:00 Completed [facility] TD, NOS 2019-07-16 00:00:00 Completed [facility] TD, NOS 2019-07-16 00:00:00 Completed [facility] TD, NOS 2019-07-16 00:00:00 Completed [facility] TD, NOS 2019-07-16 00:00:00 Completed [facility] TD, NOS 2019-07-16 00:00:00 Completed [facility] TD, NOS 2019-07-16 00:00:00 Completed [facility] TD, NOS 2019-07-16 00:00:00 Completed [facility] TD, NOS 2019-07-16 00:00:00 Completed [facility] TD, NOS 2019-07-16 00:00:00 Completed [facility] TD, NOS 2019-07-16 00:00:00 Completed [facility] TD, NOS 2019-07-16 00:00:00 Completed [facility] TD, NOS 2019-07-16 00:00:00 Completed [facility] TD, NOS 2019-07-16 00:00:00 Completed [facility] TD, NOS 2019-07-16 00:00:00 Completed [facility] TD, NOS 2019-07-16 00:00:00 Completed [facility] TD, NOS 2019-07-16 00:00:00 Completed [facility] TD, NOS 2019-07-16 00:00:00 Completed [facility] TD, NOS 2019-07-16 00:00:00 Completed [facility] TD, NOS 2019-07-16 00:00:00 Completed [facility] Influenza Virus Vaccine 2019-06-14 00:00:00 Completed [facility] Influenza Virus Vaccine 2019-06-14 00:00:00 Completed [facility] Influenza Virus Vaccine 2019-06-14 00:00:00 Completed [facility] Influenza Virus Vaccine 2019-06-14 00:00:00 Completed [facility] Influenza Virus Vaccine 2019-06-14 00:00:00 Completed [facility] Influenza Virus Vaccine 2019-06-14 00:00:00 Completed [facility] Influenza Virus Vaccine 2019-06-14 00:00:00 Completed [facility] Influenza Virus Vaccine 2019-06-14 00:00:00 Completed [facility] Influenza Virus Vaccine 2019-06-14 00:00:00 Completed [facility] [place] Influenza Virus Vaccine 2019-06-14 00:00:00 Completed [facility] [place] Influenza Virus Vaccine 2019-06-14 00:00:00 Completed [facility] [place] Influenza Virus Vaccine 2019-06-14 00:00:00 Completed [facility] [place] Influenza Virus Vaccine 2019-06-14 00:00:00 Completed [facility] [place] Influenza Virus Vaccine 2019-06-14 00:00:00 Completed [facility] [place] Influenza Virus Vaccine 2019-06-14 00:00:00 Completed [facility] [place] Influenza Virus Vaccine 2019-06-14 00:00:00 Completed [facility] [place] Influenza Virus Vaccine 2019-06-14 00:00:00 Completed [facility] [place] Influenza Virus Vaccine 2019-06-14 00:00:00 Completed [facility] [place] Influenza Virus Vaccine 2019-06-14 00:00:00 Completed [facility] [place] Influenza Virus Vaccine 2019-06-14 00:00:00 Completed [facility] [place] Influenza Virus Vaccine 2019-06-14 00:00:00 Completed [facility] [place] Influenza Virus Vaccine 2019-06-14 00:00:00 Completed [facility] [place] Influenza Virus Vaccine 2019-06-14 00:00:00 Completed [facility] [place] Influenza Virus Vaccine 2019-06-14 00:00:00 Completed [facility] [place] Influenza Virus Vaccine 2019-06-14 00:00:00 Completed [facility] [place] Influenza Virus Vaccine 2019-06-14 00:00:00 Completed [facility] [place] Influenza Virus Vaccine 2019-06-14 00:00:00 Completed [facility] [place] Influenza Virus Vaccine 2019-06-14 00:00:00 Completed [facility] [place] Influenza Virus Vaccine 2019-06-14 00:00:00 Completed [facility] [place] Influenza Virus Vaccine 2019-06-14 00:00:00 Completed [facility] [place] Influenza Virus Vaccine 2019-06-14 00:00:00 Completed [facility] [place] Influenza Virus Vaccine 2019-06-14 00:00:00 Completed [facility] [place] Influenza Virus Vaccine 2019-06-14 00:00:00 Completed [facility] [place] Influenza Virus Vaccine 2019-06-14 00:00:00 Completed [facility] [place] Influenza Virus Vaccine 2019-06-14 00:00:00 Completed [facility] [place] Influenza Virus Vaccine 2019-06-14 00:00:00 Completed [facility] [place] Influenza Virus Vaccine 2019-06-14 00:00:00 Completed [facility] [place] Influenza Virus Vaccine 2019-06-14 00:00:00 Completed [facility] [place] Influenza Virus Vaccine 2019-06-14 00:00:00 Completed [facility] [place] Influenza Virus Vaccine 2019-06-14 00:00:00 Completed [facility] [place] Influenza Virus Vaccine 2019-06-14 00:00:00 Completed [facility] [place] Influenza Virus Vaccine 2019-06-14 00:00:00 Completed [facility] [place] Influenza Virus Vaccine 2019-06-14 00:00:00 Completed [facility] [place] Influenza Virus Vaccine 2019-06-14 00:00:00 Completed [facility] [place] Influenza Virus Vaccine 2019-06-14 00:00:00 Completed [facility] [place] Influenza Virus Vaccine 2019-06-14 00:00:00 Completed [facility] [place] Influenza Virus Vaccine 2019-06-14 00:00:00 Completed [facility] [place] Influenza Virus Vaccine 2019-06-14 00:00:00 Completed [facility] [place] Influenza Virus Vaccine 2019-06-14 00:00:00 Completed [facility] [place] Influenza Virus Vaccine 2019-06-14 00:00:00 Completed [facility] [place] Influenza Virus Vaccine 2019-06-14 00:00:00 Completed [facility] [place] Influenza Virus Vaccine 2019-06-14 00:00:00 Completed [facility] [place] Influenza Virus Vaccine 2019-06-14 00:00:00 Completed [facility] [place] Influenza Virus Vaccine 2019-06-14 00:00:00 Completed [facility] [place] Influenza Virus Vaccine 2019-06-14 00:00:00 Completed [facility] [place] Influenza Virus Vaccine 2019-06-14 00:00:00 Completed [facility] [place] Influenza Virus Vaccine 2019-06-14 00:00:00 Completed [facility] [place] Influenza Virus Vaccine 2019-06-14 00:00:00 Completed [facility] [place] Influenza Virus Vaccine 2019-06-14 00:00:00 Completed [facility] [place] Influenza Virus Vaccine 2019-06-14 00:00:00 Completed [facility] [place] Influenza Virus Vaccine 2019-06-14 00:00:00 Completed [facility] [place] Influenza Virus Vaccine 2019-06-14 00:00:00 Completed [facility] [place] Influenza Virus Vaccine 2019-06-14 00:00:00 Completed [facility] [place] Influenza Virus Vaccine 2019-06-14 00:00:00 Completed [facility] [place] Influenza Virus Vaccine 2019-06-14 00:00:00 Completed [facility] [place] Pneumococcal Polysaccharide, PPSV23 (PNEUMOVAX) 2018-10-20 00:00:00 Completed [facility] [place] Pneumococcal Polysaccharide, PPSV23 (PNEUMOVAX) 2018-10-20 00:00:00 Completed [facility] [place] Pneumococcal Polysaccharide, PPSV23 (PNEUMOVAX) 2018-10-20 00:00:00 Completed [facility] [place] Pneumococcal Polysaccharide, PPSV23 (PNEUMOVAX) 2018-10-20 00:00:00 Completed [facility] [place] Pneumococcal Polysaccharide, PPSV23 (PNEUMOVAX) 2018-10-20 00:00:00 Completed [facility] [place] Pneumococcal Polysaccharide, PPSV23 (PNEUMOVAX) 2018-10-20 00:00:00 Completed [facility] [place] Pneumococcal Polysaccharide, PPSV23 (PNEUMOVAX) 2018-10-20 00:00:00 Completed [facility] [place] Pneumococcal Polysaccharide, PPSV23 (PNEUMOVAX) 2018-10-20 00:00:00 Completed [facility] [place] Pneumococcal Polysaccharide, PPSV23 (PNEUMOVAX) 2018-10-20 00:00:00 Completed [facility] [place] Pneumococcal Polysaccharide, PPSV23 (PNEUMOVAX) 2018-10-20 00:00:00 Completed [facility] [place] Pneumococcal Polysaccharide, PPSV23 (PNEUMOVAX) 2018-10-20 00:00:00 Completed [facility] [place] Pneumococcal Polysaccharide, PPSV23 (PNEUMOVAX) 2018-10-20 00:00:00 Completed [facility] [place] Pneumococcal Polysaccharide, PPSV23 (PNEUMOVAX) 2018-10-20 00:00:00 Completed [facility] [place] Pneumococcal Polysaccharide, PPSV23 (PNEUMOVAX) 2018-10-20 00:00:00 Completed [facility] [place] Pneumococcal Polysaccharide, PPSV23 (PNEUMOVAX) 2018-10-20 00:00:00 Completed [facility] [place] Pneumococcal Polysaccharide, PPSV23 (PNEUMOVAX) 2018-10-20 00:00:00 Completed [facility] [place] Pneumococcal Polysaccharide, PPSV23 (PNEUMOVAX) 2018-10-20 00:00:00 Completed [facility] [place] Pneumococcal Polysaccharide, PPSV23 (PNEUMOVAX) 2018-10-20 00:00:00 Completed [facility] [place] Pneumococcal Polysaccharide, PPSV23 (PNEUMOVAX) 2018-10-20 00:00:00 Completed [facility] [place] Pneumococcal Polysaccharide, PPSV23 (PNEUMOVAX) 2018-10-20 00:00:00 Completed [facility] [place] Pneumococcal Polysaccharide, PPSV23 (PNEUMOVAX) 2018-10-20 00:00:00 Completed [facility] [place] Pneumococcal Polysaccharide, PPSV23 (PNEUMOVAX) 2018-10-20 00:00:00 Completed [facility] [place] Pneumococcal Polysaccharide, PPSV23 (PNEUMOVAX) 2018-10-20 00:00:00 Completed [facility] [place] Pneumococcal Polysaccharide, PPSV23 (PNEUMOVAX) 2018-10-20 00:00:00 Completed [facility] [place] Pneumococcal Polysaccharide, PPSV23 (PNEUMOVAX) 2018-10-20 00:00:00 Completed [facility] [place] Pneumococcal Polysaccharide, PPSV23 (PNEUMOVAX) 2018-10-20 00:00:00 Completed [facility] [place] Pneumococcal Polysaccharide, PPSV23 (PNEUMOVAX) 2018-10-20 00:00:00 Completed [facility] [place] Pneumococcal Polysaccharide, PPSV23 (PNEUMOVAX) 2018-10-20 00:00:00 Completed [facility] [place] Pneumococcal Polysaccharide, PPSV23 (PNEUMOVAX) 2018-10-20 00:00:00 Completed [facility] [place] Pneumococcal Polysaccharide, PPSV23 (PNEUMOVAX) 2018-10-20 00:00:00 Completed [facility] [place] Pneumococcal Polysaccharide, PPSV23 (PNEUMOVAX) 2018-10-20 00:00:00 Completed [facility] [place] Pneumococcal Polysaccharide, PPSV23 (PNEUMOVAX) 2018-10-20 00:00:00 Completed [facility] [place] Pneumococcal Polysaccharide, PPSV23 (PNEUMOVAX) 2018-10-20 00:00:00 Completed [facility] [place] Pneumococcal Polysaccharide, PPSV23 (PNEUMOVAX) 2018-10-20 00:00:00 Completed [facility] [place] Pneumococcal Polysaccharide, PPSV23 (PNEUMOVAX) 2018-10-20 00:00:00 Completed [facility] [place] Pneumococcal Polysaccharide, PPSV23 (PNEUMOVAX) 2018-10-20 00:00:00 Completed [facility] [place] Pneumococcal Polysaccharide, PPSV23 (PNEUMOVAX) 2018-10-20 00:00:00 Completed [facility] [place] Pneumococcal Polysaccharide, PPSV23 (PNEUMOVAX) 2018-10-20 00:00:00 Completed [facility] [place] Pneumococcal Polysaccharide, PPSV23 (PNEUMOVAX) 2018-10-20 00:00:00 Completed [facility] [place] Pneumococcal Polysaccharide, PPSV23 (PNEUMOVAX) 2018-10-20 00:00:00 Completed [facility] [place] Pneumococcal Polysaccharide, PPSV23 (PNEUMOVAX) 2018-10-20 00:00:00 Completed [facility] [place] Pneumococcal Polysaccharide, PPSV23 (PNEUMOVAX) 2018-10-20 00:00:00 Completed [facility] [place] Pneumococcal Polysaccharide, PPSV23 (PNEUMOVAX) 2018-10-20 00:00:00 Completed [facility] [place] Pneumococcal Polysaccharide, PPSV23 (PNEUMOVAX) 2018-10-20 00:00:00 Completed [facility] [place] Pneumococcal Polysaccharide, PPSV23 (PNEUMOVAX) 2018-10-20 00:00:00 Completed [facility] [place] Pneumococcal Polysaccharide, PPSV23 (PNEUMOVAX) 2018-10-20 00:00:00 Completed [facility] [place] Pneumococcal Polysaccharide, PPSV23 (PNEUMOVAX) 2018-10-20 00:00:00 Completed [facility] [place] Pneumococcal Polysaccharide, PPSV23 (PNEUMOVAX) 2018-10-20 00:00:00 Completed [facility] [place] Pneumococcal Polysaccharide, PPSV23 (PNEUMOVAX) 2018-10-20 00:00:00 Completed [facility] [place] Pneumococcal Polysaccharide, PPSV23 (PNEUMOVAX) 2018-10-20 00:00:00 Completed [facility] [place] Pneumococcal Polysaccharide, PPSV23 (PNEUMOVAX) 2018-10-20 00:00:00 Completed [facility] [place] Pneumococcal Polysaccharide, PPSV23 (PNEUMOVAX) 2018-10-20 00:00:00 Completed [facility] [place] Pneumococcal Polysaccharide, PPSV23 (PNEUMOVAX) 2018-10-20 00:00:00 Completed [facility] [place] Pneumococcal Polysaccharide, PPSV23 (PNEUMOVAX) 2018-10-20 00:00:00 Completed [facility] [place] Pneumococcal Polysaccharide, PPSV23 (PNEUMOVAX) 2018-10-20 00:00:00 Completed [facility] [place] Pneumococcal Polysaccharide, PPSV23 (PNEUMOVAX) 2018-10-20 00:00:00 Completed [facility] [place] Pneumococcal Polysaccharide, PPSV23 (PNEUMOVAX) 2018-10-20 00:00:00 Completed [facility] [place] Pneumococcal Polysaccharide, PPSV23 (PNEUMOVAX) 2018-10-20 00:00:00 Completed [facility] [place] Pneumococcal Polysaccharide, PPSV23 (PNEUMOVAX) 2018-10-20 00:00:00 Completed [facility] [place] Pneumococcal Polysaccharide, PPSV23 (PNEUMOVAX) 2018-10-20 00:00:00 Completed [facility] [place] Pneumococcal Polysaccharide, PPSV23 (PNEUMOVAX) 2018-10-20 00:00:00 Completed [facility] [place] Pneumococcal Polysaccharide, PPSV23 (PNEUMOVAX) 2018-10-20 00:00:00 Completed [facility] [place] Pneumococcal Polysaccharide, PPSV23 (PNEUMOVAX) 2018-10-20 00:00:00 Completed [facility] [place] Pneumococcal Polysaccharide, PPSV23 (PNEUMOVAX) 2018-10-20 00:00:00 Completed [facility] [place] Pneumococcal Polysaccharide, PPSV23 (PNEUMOVAX) 2018-10-20 00:00:00 Completed [facility] [place] Influenza Virus Vaccine - Whole 2018-06-25 00:00:00 Completed [facility] [place] Influenza Virus Vaccine - Whole 2018-06-25 00:00:00 Completed [facility] [place] Influenza Virus Vaccine - Whole 2018-06-25 00:00:00 Completed [facility] [place] Influenza Virus Vaccine - Whole 2018-06-25 00:00:00 Completed [facility] [place] Influenza Virus Vaccine - Whole 2018-06-25 00:00:00 Completed [facility] [place] Influenza Virus Vaccine - Whole 2018-06-25 00:00:00 Completed [facility] [place] Influenza Virus Vaccine - Whole 2018-06-25 00:00:00 Completed [facility] [place] Influenza Virus Vaccine - Whole 2018-06-25 00:00:00 Completed [facility] [place] Influenza Virus Vaccine - Whole 2018-06-25 00:00:00 Completed [facility] [place] Influenza Virus Vaccine - Whole 2018-06-25 00:00:00 Completed [facility] [place] Influenza Virus Vaccine - Whole 2018-06-25 00:00:00 Completed [facility] [place] Influenza Virus Vaccine - Whole 2018-06-25 00:00:00 Completed [facility] [place] Influenza Virus Vaccine - Whole 2018-06-25 00:00:00 Completed [facility] [place] Influenza Virus Vaccine - Whole 2018-06-25 00:00:00 Completed [facility] [place] Influenza Virus Vaccine - Whole 2018-06-25 00:00:00 Completed [facility] [place] Influenza Virus Vaccine - Whole 2018-06-25 00:00:00 Completed [facility] [place] Influenza Virus Vaccine - Whole 2018-06-25 00:00:00 Completed [facility] [place] Influenza Virus Vaccine - Whole 2018-06-25 00:00:00 Completed [facility] [place] Influenza Virus Vaccine - Whole 2018-06-25 00:00:00 Completed [facility] [place] Influenza Virus Vaccine - Whole 2018-06-25 00:00:00 Completed [facility] [place] Influenza Virus Vaccine - Whole 2018-06-25 00:00:00 Completed [facility] [place] Influenza Virus Vaccine - Whole 2018-06-25 00:00:00 Completed [facility] [place] Influenza Virus Vaccine - Whole 2018-06-25 00:00:00 Completed [facility] [place] Influenza Virus Vaccine - Whole 2018-06-25 00:00:00 Completed [facility] [place] Influenza Virus Vaccine - Whole 2018-06-25 00:00:00 Completed [facility] [place] Influenza Virus Vaccine - Whole 2018-06-25 00:00:00 Completed [facility] [place] Influenza Virus Vaccine - Whole 2018-06-25 00:00:00 Completed [facility] [place] Influenza Virus Vaccine - Whole 2018-06-25 00:00:00 Completed [facility] [place] Influenza Virus Vaccine - Whole 2018-06-25 00:00:00 Completed [facility] [place] Influenza Virus Vaccine - Whole 2018-06-25 00:00:00 Completed [facility] [place] Influenza Virus Vaccine - Whole 2018-06-25 00:00:00 Completed [facility] [place] Influenza Virus Vaccine - Whole 2018-06-25 00:00:00 Completed [facility] [place] Influenza Virus Vaccine - Whole 2018-06-25 00:00:00 Completed [facility] [place] Influenza Virus Vaccine - Whole 2018-06-25 00:00:00 Completed [facility] [place] Influenza Virus Vaccine - Whole 2018-06-25 00:00:00 Completed [facility] [place] Influenza Virus Vaccine - Whole 2018-06-25 00:00:00 Completed [facility] [place] Influenza Virus Vaccine - Whole 2018-06-25 00:00:00 Completed [facility] [place] Influenza Virus Vaccine - Whole 2018-06-25 00:00:00 Completed [facility] [place] Influenza Virus Vaccine - Whole 2018-06-25 00:00:00 Completed [facility] [place] Influenza Virus Vaccine - Whole 2018-06-25 00:00:00 Completed [facility] [place] Influenza Virus Vaccine - Whole 2018-06-25 00:00:00 Completed [facility] [place] Influenza Virus Vaccine - Whole 2018-06-25 00:00:00 Completed [facility] [place] Influenza Virus Vaccine - Whole 2018-06-25 00:00:00 Completed [facility] [place] Influenza Virus Vaccine - Whole 2018-06-25 00:00:00 Completed [facility] [place] Influenza Virus Vaccine - Whole 2018-06-25 00:00:00 Completed [facility] [place] Influenza Virus Vaccine - Whole 2018-06-25 00:00:00 Completed [facility] [place] Influenza Virus Vaccine - Whole 2018-06-25 00:00:00 Completed [facility] [place] Influenza Virus Vaccine - Whole 2018-06-25 00:00:00 Completed [facility] [place] Influenza Virus Vaccine - Whole 2018-06-25 00:00:00 Completed [facility] [place] Influenza Virus Vaccine - Whole 2018-06-25 00:00:00 Completed [facility] [place] Influenza Virus Vaccine - Whole 2018-06-25 00:00:00 Completed [facility] [place] Influenza Virus Vaccine - Whole 2018-06-25 00:00:00 Completed [facility] [place] Influenza Virus Vaccine - Whole 2018-06-25 00:00:00 Completed [facility] [place] Influenza Virus Vaccine - Whole 2018-06-25 00:00:00 Completed [facility] [place] Influenza Virus Vaccine - Whole 2018-06-25 00:00:00 Completed [facility] [place] Influenza Virus Vaccine - Whole 2018-06-25 00:00:00 Completed [facility] [place] Influenza Virus Vaccine - Whole 2018-06-25 00:00:00 Completed [facility] [place] Influenza Virus Vaccine - Whole 2018-06-25 00:00:00 Completed [facility] [place] Influenza Virus Vaccine - Whole 2018-06-25 00:00:00 Completed [facility] [place] Influenza Virus Vaccine - Whole 2018-06-25 00:00:00 Completed [facility] [place] Influenza Virus Vaccine - Whole 2018-06-25 00:00:00 Completed [facility] [place] Influenza Virus Vaccine - Whole 2018-06-25 00:00:00 Completed [facility] [place] Influenza Virus Vaccine - Whole 2018-06-25 00:00:00 Completed [facility] [place] Influenza Virus Vaccine - Whole 2018-06-25 00:00:00 Completed [facility] [place] Influenza Virus Vaccine - Whole 2018-06-25 00:00:00 Completed [facility] [place] Hep B, Adol or Pedi Dosage 2018-02-03 00:00:00 Completed [facility] [place] Hep B, Adol or Pedi Dosage 2018-02-03 00:00:00 Completed [facility] [place] Hep B, Adol or Pedi Dosage 2018-02-03 00:00:00 Completed [facility] [place] Hep B, Adol or Pedi Dosage 2018-02-03 00:00:00 Completed [facility] [place] Hep B, Adol or Pedi Dosage 2018-02-03 00:00:00 Completed [facility] [place] Hep B, Adol or Pedi Dosage 2018-02-03 00:00:00 Completed [facility] [place] Hep B, Adol or Pedi Dosage 2018-02-03 00:00:00 Completed [facility] [place] Hep B, Adol or Pedi Dosage 2018-02-03 00:00:00 Completed [facility] [place] Hep B, Adol or Pedi Dosage 2018-02-03 00:00:00 Completed [facility] [place] Hep B, Adol or Pedi Dosage 2018-02-03 00:00:00 Completed [facility] [place] Hep B, Adol or Pedi Dosage 2018-02-03 00:00:00 Completed [facility] [place] Hep B, Adol or Pedi Dosage 2018-02-03 00:00:00 Completed [facility] [place] Hep B, Adol or Pedi Dosage 2018-02-03 00:00:00 Completed [facility] [place] Hep B, Adol or Pedi Dosage 2018-02-03 00:00:00 Completed [facility] [place] Hep B, Adol or Pedi Dosage 2018-02-03 00:00:00 Completed [facility] [place] Hep B, Adol or Pedi Dosage 2018-02-03 00:00:00 Completed [facility] [place] Hep B, Adol or Pedi Dosage 2018-02-03 00:00:00 Completed [facility] [place] Hep B, Adol or Pedi Dosage 2018-02-03 00:00:00 Completed [facility] [place] Hep B, Adol or Pedi Dosage 2018-02-03 00:00:00 Completed [facility] [place] Hep B, Adol or Pedi Dosage 2018-02-03 00:00:00 Completed [facility] [place] Hep B, Adol or Pedi Dosage 2018-02-03 00:00:00 Completed [facility] [place] Hep B, Adol or Pedi Dosage 2018-02-03 00:00:00 Completed [facility] [place] Hep B, Adol or Pedi Dosage 2018-02-03 00:00:00 Completed [facility] [place] Hep B, Adol or Pedi Dosage 2018-02-03 00:00:00 Completed [facility] [place] Hep B, Adol or Pedi Dosage 2018-02-03 00:00:00 Completed [facility] [place] Hep B, Adol or Pedi Dosage 2018-02-03 00:00:00 Completed [facility] [place] Hep B, Adol or Pedi Dosage 2018-02-03 00:00:00 Completed [facility] Hep B, Adol or Pedi Dosage 2018-02-03 00:00:00 Completed [facility] Hep B, Adol or Pedi Dosage 2018-02-03 00:00:00 Completed [facility] Hep B, Adol or Pedi Dosage 2018-02-03 00:00:00 Completed [facility] Hep B, Adol or Pedi Dosage 2018-02-03 00:00:00 Completed [facility] Hep B, Adol or Pedi Dosage 2018-02-03 00:00:00 Completed [facility] Hep B, Adol or Pedi Dosage 2018-02-03 00:00:00 Completed [facility] Hep B, Adol or Pedi Dosage 2018-02-03 00:00:00 Completed [facility] Hep B, Adol or Pedi Dosage 2018-02-03 00:00:00 Completed [facility] Hep B, Adol or Pedi Dosage 2018-02-03 00:00:00 Completed [facility] Hep B, Adol or Pedi Dosage 2018-02-03 00:00:00 Completed [facility] Hep B, Adol or Pedi Dosage 2018-02-03 00:00:00 Completed [facility] Hep B, Adol or Pedi Dosage 2018-02-03 00:00:00 Completed [facility] Hep B, Adol or Pedi Dosage 2018-02-03 00:00:00 Completed [facility] Hep B, Adol or Pedi Dosage 2018-02-03 00:00:00 Completed [facility] Hep B, Adol or Pedi Dosage 2018-02-03 00:00:00 Completed [facility] Hep B, Adol or Pedi Dosage 2018-02-03 00:00:00 Completed [facility] Hep B, Adol or Pedi Dosage 2018-02-03 00:00:00 Completed [facility] Hep B, Adol or Pedi Dosage 2018-02-03 00:00:00 Completed [facility] Hep B, Adol or Pedi Dosage 2018-02-03 00:00:00 Completed [facility] Hep B, Adol or Pedi Dosage 2018-02-03 00:00:00 Completed [facility] Hep B, Adol or Pedi Dosage 2018-02-03 00:00:00 Completed [facility] Hep B, Adol or Pedi Dosage 2018-02-03 00:00:00 Completed [facility] Hep B, Adol or Pedi Dosage 2018-02-03 00:00:00 Completed [facility] Hep B, Adol or Pedi Dosage 2018-02-03 00:00:00 Completed [facility] Hep B, Adol or Pedi Dosage 2018-02-03 00:00:00 Completed [facility] Hep B, Adol or Pedi Dosage 2018-02-03 00:00:00 Completed [facility] Hep B, Adol or Pedi Dosage 2018-02-03 00:00:00 Completed [facility] Hep B, Adol or Pedi Dosage 2018-02-03 00:00:00 Completed [facility] Hep B, Adol or Pedi Dosage 2018-02-03 00:00:00 Completed [facility] Hep B, Adol or Pedi Dosage 2018-02-03 00:00:00 Completed [facility] Hep B, Adol or Pedi Dosage 2018-02-03 00:00:00 Completed [facility] Hep B, Adol or Pedi Dosage 2018-02-03 00:00:00 Completed [facility] Hep B, Adol or Pedi Dosage 2018-02-03 00:00:00 Completed [facility] Hep B, Adol or Pedi Dosage 2018-02-03 00:00:00 Completed [facility] Hep B, Adol or Pedi Dosage 2018-02-03 00:00:00 Completed [facility] Hep B, Adol or Pedi Dosage 2018-02-03 00:00:00 Completed [facility] Hep B, Adol or Pedi Dosage 2018-02-03 00:00:00 Completed [facility] Hep B, Adol or Pedi Dosage 2018-02-03 00:00:00 Completed [facility] Influenza Virus Vaccine 2017-07-03 00:00:00 Completed [facility] Influenza Virus Vaccine 2017-07-03 00:00:00 Completed [facility] Influenza Virus Vaccine 2017-07-03 00:00:00 Completed [facility] Influenza Virus Vaccine 2017-07-03 00:00:00 Completed [facility] Influenza Virus Vaccine 2017-07-03 00:00:00 Completed [facility] Influenza Virus Vaccine 2017-07-03 00:00:00 Completed [facility] Influenza Virus Vaccine 2017-07-03 00:00:00 Completed [facility] Influenza Virus Vaccine 2017-07-03 00:00:00 Completed [facility] Influenza Virus Vaccine 2017-07-03 00:00:00 Completed [facility] Influenza Virus Vaccine 2017-07-03 00:00:00 Completed [facility] Influenza Virus Vaccine 2017-07-03 00:00:00 Completed [facility] Influenza Virus Vaccine 2017-07-03 00:00:00 Completed [facility] Influenza Virus Vaccine 2017-07-03 00:00:00 Completed [facility] Influenza Virus Vaccine 2017-07-03 00:00:00 Completed [facility] Influenza Virus Vaccine 2017-07-03 00:00:00 Completed [facility] Influenza Virus Vaccine 2017-07-03 00:00:00 Completed [facility] Influenza Virus Vaccine 2017-07-03 00:00:00 Completed [facility] Influenza Virus Vaccine 2017-07-03 00:00:00 Completed [facility] Influenza Virus Vaccine 2017-07-03 00:00:00 Completed [facility] Influenza Virus Vaccine 2017-07-03 00:00:00 Completed [facility] Influenza Virus Vaccine 2017-07-03 00:00:00 Completed [facility] Influenza Virus Vaccine 2017-07-03 00:00:00 Completed [facility] Influenza Virus Vaccine 2017-07-03 00:00:00 Completed [facility] Influenza Virus Vaccine 2017-07-03 00:00:00 Completed [facility] Influenza Virus Vaccine 2017-07-03 00:00:00 Completed [facility] Influenza Virus Vaccine 2017-07-03 00:00:00 Completed [facility] Influenza Virus Vaccine 2017-07-03 00:00:00 Completed [facility] Influenza Virus Vaccine 2017-07-03 00:00:00 Completed [facility] Influenza Virus Vaccine 2017-07-03 00:00:00 Completed [facility] Influenza Virus Vaccine 2017-07-03 00:00:00 Completed [facility] Influenza Virus Vaccine 2017-07-03 00:00:00 Completed [facility] Influenza Virus Vaccine 2017-07-03 00:00:00 Completed [facility] Influenza Virus Vaccine 2017-07-03 00:00:00 Completed [facility] Influenza Virus Vaccine 2017-07-03 00:00:00 Completed [facility] Influenza Virus Vaccine 2017-07-03 00:00:00 Completed [facility] Influenza Virus Vaccine 2017-07-03 00:00:00 Completed [facility] Influenza Virus Vaccine 2017-07-03 00:00:00 Completed [facility] Influenza Virus Vaccine 2017-07-03 00:00:00 Completed [facility] Influenza Virus Vaccine 2017-07-03 00:00:00 Completed [facility] Influenza Virus Vaccine 2017-07-03 00:00:00 Completed [facility] Influenza Virus Vaccine 2017-07-03 00:00:00 Completed [facility] Influenza Virus Vaccine 2017-07-03 00:00:00 Completed [facility] Influenza Virus Vaccine 2017-07-03 00:00:00 Completed [facility] Influenza Virus Vaccine 2017-07-03 00:00:00 Completed [facility] Influenza Virus Vaccine 2017-07-03 00:00:00 Completed [facility] Influenza Virus Vaccine 2017-07-03 00:00:00 Completed [facility] Influenza Virus Vaccine 2017-07-03 00:00:00 Completed [facility] Influenza Virus Vaccine 2017-07-03 00:00:00 Completed [facility] Influenza Virus Vaccine 2017-07-03 00:00:00 Completed [facility] Influenza Virus Vaccine 2017-07-03 00:00:00 Completed [facility] Influenza Virus Vaccine 2017-07-03 00:00:00 Completed [facility] Influenza Virus Vaccine 2017-07-03 00:00:00 Completed [facility] Influenza Virus Vaccine 2017-07-03 00:00:00 Completed [facility] Influenza Virus Vaccine 2017-07-03 00:00:00 Completed [facility] Influenza Virus Vaccine 2017-07-03 00:00:00 Completed [facility] Influenza Virus Vaccine 2017-07-03 00:00:00 Completed [facility] Influenza Virus Vaccine 2017-07-03 00:00:00 Completed [facility] Influenza Virus Vaccine 2017-07-03 00:00:00 Completed [facility] Influenza Virus Vaccine 2017-07-03 00:00:00 Completed [facility] Influenza Virus Vaccine 2017-07-03 00:00:00 Completed [facility] Influenza Virus Vaccine 2017-07-03 00:00:00 Completed [facility] Influenza Virus Vaccine 2017-07-03 00:00:00 Completed [facility] Influenza Virus Vaccine 2017-07-03 00:00:00 Completed [facility] Influenza Virus Vaccine 2017-07-03 00:00:00 Completed [facility] Influenza Virus Vaccine 2017-07-03 00:00:00 Completed [facility] TDAP 2016-12-14 00:00:00 Completed [facility] MMR 2016-12-14 00:00:00 Completed [facility] Varicella (varivax)(chicken pox) 2016-12-14 00:00:00 Completed [facility] TDAP 2016-12-14 00:00:00 Completed [facility] MMR 2016-12-14 00:00:00 Completed [facility] Varicella (varivax)(chicken pox) 2016-12-14 00:00:00 Completed [facility] TDAP 2016-12-14 00:00:00 Completed [facility] MMR 2016-12-14 00:00:00 Completed [facility] Varicella (varivax)(chicken pox) 2016-12-14 00:00:00 Completed [facility] TDAP 2016-12-14 00:00:00 Completed [facility] MMR 2016-12-14 00:00:00 Completed [facility] Varicella (varivax)(chicken pox) 2016-12-14 00:00:00 Completed [facility] TDAP 2016-12-14 00:00:00 Completed [facility] MMR 2016-12-14 00:00:00 Completed [facility] Varicella (varivax)(chicken pox) 2016-12-14 00:00:00 Completed [facility] TDAP 2016-12-14 00:00:00 Completed [facility] MMR 2016-12-14 00:00:00 Completed [facility] Varicella (varivax)(chicken pox) 2016-12-14 00:00:00 Completed [facility] TDAP 2016-12-14 00:00:00 Completed [facility] MMR 2016-12-14 00:00:00 Completed [facility] Varicella (varivax)(chicken pox) 2016-12-14 00:00:00 Completed [facility] TDAP 2016-12-14 00:00:00 Completed [facility] MMR 2016-12-14 00:00:00 Completed [facility] Varicella (varivax)(chicken pox) 2016-12-14 00:00:00 Completed [facility] TDAP 2016-12-14 00:00:00 Completed [facility] MMR 2016-12-14 00:00:00 Completed [facility] Varicella (varivax)(chicken pox) 2016-12-14 00:00:00 Completed [facility] TDAP 2016-12-14 00:00:00 Completed [facility] MMR 2016-12-14 00:00:00 Completed [facility] Varicella (varivax)(chicken pox) 2016-12-14 00:00:00 Completed [facility] TDAP 2016-12-14 00:00:00 Completed [facility] MMR 2016-12-14 00:00:00 Completed [facility] Varicella (varivax)(chicken pox) 2016-12-14 00:00:00 Completed [facility] TDAP 2016-12-14 00:00:00 Completed [facility] MMR 2016-12-14 00:00:00 Completed [facility] Varicella (varivax)(chicken pox) 2016-12-14 00:00:00 Completed [facility] TDAP 2016-12-14 00:00:00 Completed [facility] MMR 2016-12-14 00:00:00 Completed [facility] Varicella (varivax)(chicken pox) 2016-12-14 00:00:00 Completed [facility] TDAP 2016-12-14 00:00:00 Completed [facility] MMR 2016-12-14 00:00:00 Completed [facility] Varicella (varivax)(chicken pox) 2016-12-14 00:00:00 Completed [facility] TDAP 2016-12-14 00:00:00 Completed [facility] MMR 2016-12-14 00:00:00 Completed [facility] Varicella (varivax)(chicken pox) 2016-12-14 00:00:00 Completed [facility] TDAP 2016-12-14 00:00:00 Completed [facility] MMR 2016-12-14 00:00:00 Completed [facility] Varicella (varivax)(chicken pox) 2016-12-14 00:00:00 Completed [facility] TDAP 2016-12-14 00:00:00 Completed [facility] MMR 2016-12-14 00:00:00 Completed [facility] Varicella (varivax)(chicken pox) 2016-12-14 00:00:00 Completed [facility] TDAP 2016-12-14 00:00:00 Completed [facility] MMR 2016-12-14 00:00:00 Completed [facility] Varicella (varivax)(chicken pox) 2016-12-14 00:00:00 Completed [facility] TDAP 2016-12-14 00:00:00 Completed [facility] MMR 2016-12-14 00:00:00 Completed [facility] Varicella (varivax)(chicken pox) 2016-12-14 00:00:00 Completed [facility] TDAP 2016-12-14 00:00:00 Completed [facility] MMR 2016-12-14 00:00:00 Completed [facility] Varicella (varivax)(chicken pox) 2016-12-14 00:00:00 Completed [facility] TDAP 2016-12-14 00:00:00 Completed [facility] MMR 2016-12-14 00:00:00 Completed [facility] Varicella (varivax)(chicken pox) 2016-12-14 00:00:00 Completed [facility] TDAP 2016-12-14 00:00:00 Completed [facility] MMR 2016-12-14 00:00:00 Completed [facility] Varicella (varivax)(chicken pox) 2016-12-14 00:00:00 Completed [facility] TDAP 2016-12-14 00:00:00 Completed [facility] MMR 2016-12-14 00:00:00 Completed [facility] Varicella (varivax)(chicken pox) 2016-12-14 00:00:00 Completed [facility] TDAP 2016-12-14 00:00:00 Completed [facility] MMR 2016-12-14 00:00:00 Completed [facility] Varicella (varivax)(chicken pox) 2016-12-14 00:00:00 Completed [facility] TDAP 2016-12-14 00:00:00 Completed [facility] MMR 2016-12-14 00:00:00 Completed [facility] Varicella (varivax)(chicken pox) 2016-12-14 00:00:00 Completed [facility] TDAP 2016-12-14 00:00:00 Completed [facility] MMR 2016-12-14 00:00:00 Completed [facility] Varicella (varivax)(chicken pox) 2016-12-14 00:00:00 Completed [facility] TDAP 2016-12-14 00:00:00 Completed [facility] MMR 2016-12-14 00:00:00 Completed [facility] Varicella (varivax)(chicken pox) 2016-12-14 00:00:00 Completed [facility] TDAP 2016-12-14 00:00:00 Completed [facility] MMR 2016-12-14 00:00:00 Completed [facility] Varicella (varivax)(chicken pox) 2016-12-14 00:00:00 Completed [facility] TDAP 2016-12-14 00:00:00 Completed [facility] MMR 2016-12-14 00:00:00 Completed [facility] Varicella (varivax)(chicken pox) 2016-12-14 00:00:00 Completed [facility] TDAP 2016-12-14 00:00:00 Completed [facility] MMR 2016-12-14 00:00:00 Completed [facility] Varicella (varivax)(chicken pox) 2016-12-14 00:00:00 Completed [facility] TDAP 2016-12-14 00:00:00 Completed [facility] MMR 2016-12-14 00:00:00 Completed [facility] Varicella (varivax)(chicken pox) 2016-12-14 00:00:00 Completed [facility] TDAP 2016-12-14 00:00:00 Completed [facility] MMR 2016-12-14 00:00:00 Completed [facility] Varicella (varivax)(chicken pox) 2016-12-14 00:00:00 Completed [facility] TDAP 2016-12-14 00:00:00 Completed [facility] MMR 2016-12-14 00:00:00 Completed [facility] Varicella (varivax)(chicken pox) 2016-12-14 00:00:00 Completed [facility] TDAP 2016-12-14 00:00:00 Completed [facility] MMR 2016-12-14 00:00:00 Completed [facility] Varicella (varivax)(chicken pox) 2016-12-14 00:00:00 Completed [facility] TDAP 2016-12-14 00:00:00 Completed [facility] MMR 2016-12-14 00:00:00 Completed [facility] Varicella (varivax)(chicken pox) 2016-12-14 00:00:00 Completed [facility] TDAP 2016-12-14 00:00:00 Completed [facility] MMR 2016-12-14 00:00:00 Completed [facility] Varicella (varivax)(chicken pox) 2016-12-14 00:00:00 Completed [facility] TDAP 2016-12-14 00:00:00 Completed [facility] MMR 2016-12-14 00:00:00 Completed [facility] Varicella (varivax)(chicken pox) 2016-12-14 00:00:00 Completed [facility] TDAP 2016-12-14 00:00:00 Completed [facility] MMR 2016-12-14 00:00:00 Completed [facility] Varicella (varivax)(chicken pox) 2016-12-14 00:00:00 Completed [facility] TDAP 2016-12-14 00:00:00 Completed [facility] MMR 2016-12-14 00:00:00 Completed [facility] Varicella (varivax)(chicken pox) 2016-12-14 00:00:00 Completed [facility] TDAP 2016-12-14 00:00:00 Completed [facility] MMR 2016-12-14 00:00:00 Completed [facility] Varicella (varivax)(chicken pox) 2016-12-14 00:00:00 Completed [facility] TDAP 2016-12-14 00:00:00 Completed [facility] MMR 2016-12-14 00:00:00 Completed [facility] Varicella (varivax)(chicken pox) 2016-12-14 00:00:00 Completed [facility] TDAP 2016-12-14 00:00:00 Completed [facility] MMR 2016-12-14 00:00:00 Completed [facility] Varicella (varivax)(chicken pox) 2016-12-14 00:00:00 Completed [facility] TDAP 2016-12-14 00:00:00 Completed [facility] MMR 2016-12-14 00:00:00 Completed [facility] Varicella (varivax)(chicken pox) 2016-12-14 00:00:00 Completed [facility] TDAP 2016-12-14 00:00:00 Completed [facility] MMR 2016-12-14 00:00:00 Completed [facility] Varicella (varivax)(chicken pox) 2016-12-14 00:00:00 Completed [facility] TDAP 2016-12-14 00:00:00 Completed [facility] MMR 2016-12-14 00:00:00 Completed [facility] Varicella (varivax)(chicken pox) 2016-12-14 00:00:00 Completed [facility] TDAP 2016-12-14 00:00:00 Completed [facility] MMR 2016-12-14 00:00:00 Completed [facility] Varicella (varivax)(chicken pox) 2016-12-14 00:00:00 Completed [facility] TDAP 2016-12-14 00:00:00 Completed [facility] MMR 2016-12-14 00:00:00 Completed [facility] Varicella (varivax)(chicken pox) 2016-12-14 00:00:00 Completed [facility] [place] TDAP 2016-12-14 00:00:00 Completed [facility] [place] MMR 2016-12-14 00:00:00 Completed [facility] [place] Varicella (varivax)(chicken pox) 2016-12-14 00:00:00 Completed [facility] [place] [facility] TDAP 2016-12-14 00:00:00 Completed [facility] [place] MMR 2016-12-14 00:00:00 Completed [facility] [place] Varicella (varivax)(chicken pox) 2016-12-14 00:00:00 Completed [facility] [place] TDAP 2016-12-14 00:00:00 Completed [facility] [place] MMR 2016-12-14 00:00:00 Completed [facility] [place] Varicella (varivax)(chicken pox) 2016-12-14 00:00:00 Completed [facility] [place] TDAP 2016-12-14 00:00:00 Completed [facility] [place] MMR 2016-12-14 00:00:00 Completed [facility] [place] Varicella (varivax)(chicken pox) 2016-12-14 00:00:00 Completed [facility] [place] TDAP 2016-12-14 00:00:00 Completed [facility] [place] MMR 2016-12-14 00:00:00 Completed [facility] [place] Varicella (varivax)(chicken pox) 2016-12-14 00:00:00 Completed [facility] [place] TDAP 2016-12-14 00:00:00 Completed [facility] [place] MMR 2016-12-14 00:00:00 Completed [facility] [place] Varicella (varivax)(chicken pox) 2016-12-14 00:00:00 Completed [facility] [place] TDAP 2016-12-14 00:00:00 Completed [facility] [place] MMR 2016-12-14 00:00:00 Completed [facility] [place] Varicella (varivax)(chicken pox) 2016-12-14 00:00:00 Completed [facility] [place] TDAP 2016-12-14 00:00:00 Completed [facility] [place] MMR 2016-12-14 00:00:00 Completed [facility] [place] Varicella (varivax)(chicken pox) 2016-12-14 00:00:00 Completed [facility] [place] TDAP 2016-12-14 00:00:00 Completed [facility] [place] MMR 2016-12-14 00:00:00 Completed [facility] [place] Varicella (varivax)(chicken pox) 2016-12-14 00:00:00 Completed [facility] [place] TDAP 2016-12-14 00:00:00 Completed [facility] [place] MMR 2016-12-14 00:00:00 Completed [facility] [place] Varicella (varivax)(chicken pox) 2016-12-14 00:00:00 Completed [facility] [place] TDAP 2016-12-14 00:00:00 Completed [facility] [place] MMR 2016-12-14 00:00:00 Completed [facility] [place] Varicella (varivax)(chicken pox) 2016-12-14 00:00:00 Completed [facility] [place] TDAP 2016-12-14 00:00:00 Completed [facility] [place] MMR 2016-12-14 00:00:00 Completed [facility] [place] Varicella (varivax)(chicken pox) 2016-12-14 00:00:00 Completed [facility] [place] TDAP 2016-12-14 00:00:00 Completed [facility] [place] MMR 2016-12-14 00:00:00 Completed [facility] [place] Varicella (varivax)(chicken pox) 2016-12-14 00:00:00 Completed [facility] [place] TDAP 2016-12-14 00:00:00 Completed [facility] [place] MMR 2016-12-14 00:00:00 Completed [facility] [place] Varicella (varivax)(chicken pox) 2016-12-14 00:00:00 Completed [facility] [place] TDAP 2016-12-14 00:00:00 Completed [facility] [place] MMR 2016-12-14 00:00:00 Completed [facility] [place] Varicella (varivax)(chicken pox) 2016-12-14 00:00:00 Completed [facility] [place] TDAP 2016-12-14 00:00:00 Completed [facility] [place] MMR 2016-12-14 00:00:00 Completed [facility] [place] Varicella (varivax)(chicken pox) 2016-12-14 00:00:00 Completed [facility] [place] TDAP 2016-12-14 00:00:00 Completed [facility] [place] MMR 2016-12-14 00:00:00 Completed [facility] [place] Varicella (varivax)(chicken pox) 2016-12-14 00:00:00 Completed [facility] [place] TDAP 2016-12-14 00:00:00 Completed [facility] [place] MMR 2016-12-14 00:00:00 Completed [facility] [place] Varicella (varivax)(chicken pox) 2016-12-14 00:00:00 Completed [facility] [place] Hep B, Adol or Pedi Dosage 2008-08-27 00:00:00 Completed [facility] [place] Hep B, Adol or Pedi Dosage 2008-08-27 00:00:00 Completed [facility] [place] Hep B, Adol or Pedi Dosage 2008-08-27 00:00:00 Completed [facility] [place] Hep B, Adol or Pedi Dosage 2008-08-27 00:00:00 Completed [facility] [place] Hep B, Adol or Pedi Dosage 2008-08-27 00:00:00 Completed [facility] [place] Hep B, Adol or Pedi Dosage 2008-08-27 00:00:00 Completed [facility] [place] Hep B, Adol or Pedi Dosage 2008-08-27 00:00:00 Completed [facility] [place] Hep B, Adol or Pedi Dosage 2008-08-27 00:00:00 Completed [facility] [place] Hep B, Adol or Pedi Dosage 2008-08-27 00:00:00 Completed [facility] [place] Hep B, Adol or Pedi Dosage 2008-08-27 00:00:00 Completed [facility] [place] Hep B, Adol or Pedi Dosage 2008-08-27 00:00:00 Completed [facility] [place] Hep B, Adol or Pedi Dosage 2008-08-27 00:00:00 Completed [facility] [place] Hep B, Adol or Pedi Dosage 2008-08-27 00:00:00 Completed [facility] [place] Hep B, Adol or Pedi Dosage 2008-08-27 00:00:00 Completed [facility] [place] Hep B, Adol or Pedi Dosage 2008-08-27 00:00:00 Completed [facility] [place] Hep B, Adol or Pedi Dosage 2008-08-27 00:00:00 Completed [facility] [place] Hep B, Adol or Pedi Dosage 2008-08-27 00:00:00 Completed [facility] [place] Hep B, Adol or Pedi Dosage 2008-08-27 00:00:00 Completed [facility] [place] Hep B, Adol or Pedi Dosage 2008-08-27 00:00:00 Completed [facility] [place] Hep B, Adol or Pedi Dosage 2008-08-27 00:00:00 Completed [facility] [place] Hep B, Adol or Pedi Dosage 2008-08-27 00:00:00 Completed [facility] [place] Hep B, Adol or Pedi Dosage 2008-08-27 00:00:00 Completed [facility] [place] Hep B, Adol or Pedi Dosage 2008-08-27 00:00:00 Completed [facility] [place] Hep B, Adol or Pedi Dosage 2008-08-27 00:00:00 Completed [facility] [place] Hep B, Adol or Pedi Dosage 2008-08-27 00:00:00 Completed [facility] [place] Hep B, Adol or Pedi Dosage 2008-08-27 00:00:00 Completed [facility] [place] Hep B, Adol or Pedi Dosage 2008-08-27 00:00:00 Completed [facility] [place] Hep B, Adol or Pedi Dosage 2008-08-27 00:00:00 Completed [facility] [place] Hep B, Adol or Pedi Dosage 2008-08-27 00:00:00 Completed [facility] [place] Hep B, Adol or Pedi Dosage 2008-08-27 00:00:00 Completed [facility] [place] Hep B, Adol or Pedi Dosage 2008-08-27 00:00:00 Completed [facility] [place] Hep B, Adol or Pedi Dosage 2008-08-27 00:00:00 Completed [facility] [place] Hep B, Adol or Pedi Dosage 2008-08-27 00:00:00 Completed [facility] [place] Hep B, Adol or Pedi Dosage 2008-08-27 00:00:00 Completed [facility] [place] Hep B, Adol or Pedi Dosage 2008-08-27 00:00:00 Completed [facility] [place] Hep B, Adol or Pedi Dosage 2008-08-27 00:00:00 Completed [facility] [place] Hep B, Adol or Pedi Dosage 2008-08-27 00:00:00 Completed [facility] [place] Hep B, Adol or Pedi Dosage 2008-08-27 00:00:00 Completed [facility] [place] Hep B, Adol or Pedi Dosage 2008-08-27 00:00:00 Completed [facility] [place] Hep B, Adol or Pedi Dosage 2008-08-27 00:00:00 Completed [facility] [place] Hep B, Adol or Pedi Dosage 2008-08-27 00:00:00 Completed [facility] [place] Hep B, Adol or Pedi Dosage 2008-08-27 00:00:00 Completed [facility] [place] Hep B, Adol or Pedi Dosage 2008-08-27 00:00:00 Completed [facility] [place] Hep B, Adol or Pedi Dosage 2008-08-27 00:00:00 Completed [facility] [place] Hep B, Adol or Pedi Dosage 2008-08-27 00:00:00 Completed [facility] [place] Hep B, Adol or Pedi Dosage 2008-08-27 00:00:00 Completed [facility] [place] Hep B, Adol or Pedi Dosage 2008-08-27 00:00:00 Completed [facility] [place] Hep B, Adol or Pedi Dosage 2008-08-27 00:00:00 Completed [facility] [place] Hep B, Adol or Pedi Dosage 2008-08-27 00:00:00 Completed [facility] [place] Hep B, Adol or Pedi Dosage 2008-08-27 00:00:00 Completed [facility] [place] Hep B, Adol or Pedi Dosage 2008-08-27 00:00:00 Completed [facility] [place] Hep B, Adol or Pedi Dosage 2008-08-27 00:00:00 Completed [facility] [place] Hep B, Adol or Pedi Dosage 2008-08-27 00:00:00 Completed [facility] [place] Hep B, Adol or Pedi Dosage 2008-08-27 00:00:00 Completed [facility] [place] Hep B, Adol or Pedi Dosage 2008-08-27 00:00:00 Completed [facility] [place] Hep B, Adol or Pedi Dosage 2008-08-27 00:00:00 Completed [facility] [place] Hep B, Adol or Pedi Dosage 2008-08-27 00:00:00 Completed [facility] [place] Hep B, Adol or Pedi Dosage 2008-08-27 00:00:00 Completed [facility] [place] Hep B, Adol or Pedi Dosage 2008-08-27 00:00:00 Completed [facility] [place] Hep B, Adol or Pedi Dosage 2008-08-27 00:00:00 Completed [facility] [place] Hep B, Adol or Pedi Dosage 2008-08-27 00:00:00 Completed [facility] [place] Hep B, Adol or Pedi Dosage 2008-08-27 00:00:00 Completed [facility] [place] Hep B, Adol or Pedi Dosage 2008-08-27 00:00:00 Completed [facility] [place] Hep B, Adol or Pedi Dosage 2008-08-27 00:00:00 Completed [facility] [place] Hep B, Adol or Pedi Dosage 2008-08-27 00:00:00 Completed [facility] [place] HEPATITIS A 2008-07-22 00:00:00 Completed [facility] [place] Hep B, Adol or Pedi Dosage 2008-07-22 00:00:00 Completed [facility] [place] Td 2008-07-22 00:00:00 Completed [facility] [place] HEPATITIS A 2008-07-22 00:00:00 Completed [facility] [place] Hep B, Adol or Pedi Dosage 2008-07-22 00:00:00 Completed [facility] [place] Td 2008-07-22 00:00:00 Completed [facility] [place] HEPATITIS A 2008-07-22 00:00:00 Completed [facility] [place] Hep B, Adol or Pedi Dosage 2008-07-22 00:00:00 Completed [facility] [place] Td 2008-07-22 00:00:00 Completed [facility] [place] HEPATITIS A 2008-07-22 00:00:00 Completed [facility] [place] Hep B, Adol or Pedi Dosage 2008-07-22 00:00:00 Completed [facility] [place] Td 2008-07-22 00:00:00 Completed [facility] [place] HEPATITIS A 2008-07-22 00:00:00 Completed [facility] [place] Hep B, Adol or Pedi Dosage 2008-07-22 00:00:00 Completed [facility] [place] Td 2008-07-22 00:00:00 Completed [facility] [place] HEPATITIS A 2008-07-22 00:00:00 Completed [facility] [place] Hep B, Adol or Pedi Dosage 2008-07-22 00:00:00 Completed [facility] [place] Td 2008-07-22 00:00:00 Completed [facility] [place] HEPATITIS A 2008-07-22 00:00:00 Completed [facility] [place] Hep B, Adol or Pedi Dosage 2008-07-22 00:00:00 Completed [facility] [place] Td 2008-07-22 00:00:00 Completed [facility] [place] HEPATITIS A 2008-07-22 00:00:00 Completed [facility] [place] Hep B, Adol or Pedi Dosage 2008-07-22 00:00:00 Completed [facility] [place] Td 2008-07-22 00:00:00 Completed [facility] [place] HEPATITIS A 2008-07-22 00:00:00 Completed [facility] [place] Hep B, Adol or Pedi Dosage 2008-07-22 00:00:00 Completed [facility] [place] Td 2008-07-22 00:00:00 Completed [facility] [place] HEPATITIS A 2008-07-22 00:00:00 Completed [facility] [place] Hep B, Adol or Pedi Dosage 2008-07-22 00:00:00 Completed [facility] [place] Td 2008-07-22 00:00:00 Completed [facility] [place] HEPATITIS A 2008-07-22 00:00:00 Completed [facility] [place] Hep B, Adol or Pedi Dosage 2008-07-22 00:00:00 Completed [facility] [place] Td 2008-07-22 00:00:00 Completed [facility] [place] HEPATITIS A 2008-07-22 00:00:00 Completed [facility] [place] Hep B, Adol or Pedi Dosage 2008-07-22 00:00:00 Completed [facility] [place] Td 2008-07-22 00:00:00 Completed [facility] [place] HEPATITIS A 2008-07-22 00:00:00 Completed [facility] [place] Hep B, Adol or Pedi Dosage 2008-07-22 00:00:00 Completed [facility] [place] Td 2008-07-22 00:00:00 Completed [facility] [place] HEPATITIS A 2008-07-22 00:00:00 Completed [facility] [place] Hep B, Adol or Pedi Dosage 2008-07-22 00:00:00 Completed [facility] [place] Td 2008-07-22 00:00:00 Completed [facility] [place] HEPATITIS A 2008-07-22 00:00:00 Completed [facility] [place] Hep B, Adol or Pedi Dosage 2008-07-22 00:00:00 Completed [facility] [place] Td 2008-07-22 00:00:00 Completed [facility] [place] HEPATITIS A 2008-07-22 00:00:00 Completed [facility] [place] Hep B, Adol or Pedi Dosage 2008-07-22 00:00:00 Completed [facility] [place] Td 2008-07-22 00:00:00 Completed [facility] [place] HEPATITIS A 2008-07-22 00:00:00 Completed [facility] [place] Hep B, Adol or Pedi Dosage 2008-07-22 00:00:00 Completed [facility] [place] Td 2008-07-22 00:00:00 Completed [facility] [place] HEPATITIS A 2008-07-22 00:00:00 Completed [facility] [place] Hep B, Adol or Pedi Dosage 2008-07-22 00:00:00 Completed [facility] [place] Td 2008-07-22 00:00:00 Completed [facility] [place] HEPATITIS A 2008-07-22 00:00:00 Completed [facility] [place] Hep B, Adol or Pedi Dosage 2008-07-22 00:00:00 Completed [facility] [place] Td 2008-07-22 00:00:00 Completed [facility] [place] HEPATITIS A 2008-07-22 00:00:00 Completed [facility] [place] Hep B, Adol or Pedi Dosage 2008-07-22 00:00:00 Completed [facility] [place] Td 2008-07-22 00:00:00 Completed [facility] [place] HEPATITIS A 2008-07-22 00:00:00 Completed [facility] [place] Hep B, Adol or Pedi Dosage 2008-07-22 00:00:00 Completed [facility] [place] Td 2008-07-22 00:00:00 Completed [facility] [place] HEPATITIS A 2008-07-22 00:00:00 Completed [facility] [place] Hep B, Adol or Pedi Dosage 2008-07-22 00:00:00 Completed [facility] [place] Td 2008-07-22 00:00:00 Completed [facility] [place] HEPATITIS A 2008-07-22 00:00:00 Completed [facility] [place] Hep B, Adol or Pedi Dosage 2008-07-22 00:00:00 Completed [facility] [place] Td 2008-07-22 00:00:00 Completed [facility] [place] HEPATITIS A 2008-07-22 00:00:00 Completed [facility] [place] Hep B, Adol or Pedi Dosage 2008-07-22 00:00:00 Completed [facility] [place] Td 2008-07-22 00:00:00 Completed [facility] [place] HEPATITIS A 2008-07-22 00:00:00 Completed [facility] [place] Hep B, Adol or Pedi Dosage 2008-07-22 00:00:00 Completed [facility] [place] Td 2008-07-22 00:00:00 Completed [facility] [place] HEPATITIS A 2008-07-22 00:00:00 Completed [facility] [place] Hep B, Adol or Pedi Dosage 2008-07-22 00:00:00 Completed [facility] [place] Td 2008-07-22 00:00:00 Completed [facility] [place] HEPATITIS A 2008-07-22 00:00:00 Completed [facility] [place] Hep B, Adol or Pedi Dosage 2008-07-22 00:00:00 Completed [facility] [place] TD, NOS 2008-07-22 00:00:00 Completed [facility] [place] HEPATITIS A 2008-07-22 00:00:00 Completed [facility] [place] Hep B, Adol or Pedi Dosage 2008-07-22 00:00:00 Completed [facility] [place] TD, NOS 2008-07-22 00:00:00 Completed [facility] [place] HEPATITIS A 2008-07-22 00:00:00 Completed [facility] [place] Hep B, Adol or Pedi Dosage 2008-07-22 00:00:00 Completed [facility] [place] TD, NOS 2008-07-22 00:00:00 Completed [facility] [place] HEPATITIS A 2008-07-22 00:00:00 Completed [facility] [place] Hep B, Adol or Pedi Dosage 2008-07-22 00:00:00 Completed [facility] [place] TD, NOS 2008-07-22 00:00:00 Completed [facility] [place] HEPATITIS A 2008-07-22 00:00:00 Completed [facility] [place] Hep B, Adol or Pedi Dosage 2008-07-22 00:00:00 Completed [facility] [place] TD, NOS 2008-07-22 00:00:00 Completed [facility] [place] HEPATITIS A 2008-07-22 00:00:00 Completed [facility] [place] Hep B, Adol or Pedi Dosage 2008-07-22 00:00:00 Completed [facility] [place] TD, NOS 2008-07-22 00:00:00 Completed [facility] [place] HEPATITIS A 2008-07-22 00:00:00 Completed [facility] [place] Hep B, Adol or Pedi Dosage 2008-07-22 00:00:00 Completed [facility] [place] TD, NOS 2008-07-22 00:00:00 Completed [facility] [place] HEPATITIS A 2008-07-22 00:00:00 Completed [facility] [place] Hep B, Adol or Pedi Dosage 2008-07-22 00:00:00 Completed [facility] [place] TD, NOS 2008-07-22 00:00:00 Completed [facility] [place] HEPATITIS A 2008-07-22 00:00:00 Completed [facility] [place] Hep B, Adol or Pedi Dosage 2008-07-22 00:00:00 Completed [facility] [place] TD, NOS 2008-07-22 00:00:00 Completed [facility] [place] HEPATITIS A 2008-07-22 00:00:00 Completed [facility] [place] Hep B, Adol or Pedi Dosage 2008-07-22 00:00:00 Completed [facility] [place] TD, NOS 2008-07-22 00:00:00 Completed [facility] [place] HEPATITIS A 2008-07-22 00:00:00 Completed [facility] [place] Hep B, Adol or Pedi Dosage 2008-07-22 00:00:00 Completed [facility] [place] TD, NOS 2008-07-22 00:00:00 Completed [facility] [place] HEPATITIS A 2008-07-22 00:00:00 Completed [facility] [place] Hep B, Adol or Pedi Dosage 2008-07-22 00:00:00 Completed [facility] [place] TD, NOS 2008-07-22 00:00:00 Completed [facility] [place] HEPATITIS A 2008-07-22 00:00:00 Completed [facility] [place] Hep B, Adol or Pedi Dosage 2008-07-22 00:00:00 Completed [facility] [place] TD, NOS 2008-07-22 00:00:00 Completed [facility] [place] HEPATITIS A 2008-07-22 00:00:00 Completed [facility] [place] Hep B, Adol or Pedi Dosage 2008-07-22 00:00:00 Completed [facility] [place] TD, NOS 2008-07-22 00:00:00 Completed [facility] [place] HEPATITIS A 2008-07-22 00:00:00 Completed [facility] [place] Hep B, Adol or Pedi Dosage 2008-07-22 00:00:00 Completed [facility] [place] TD, NOS 2008-07-22 00:00:00 Completed [facility] [place] HEPATITIS A 2008-07-22 00:00:00 Completed [facility] [place] Hep B, Adol or Pedi Dosage 2008-07-22 00:00:00 Completed [facility] [place] TD, NOS 2008-07-22 00:00:00 Completed [facility] [place] HEPATITIS A 2008-07-22 00:00:00 Completed [facility] [place] Hep B, Adol or Pedi Dosage 2008-07-22 00:00:00 Completed [facility] [place] TD, NOS 2008-07-22 00:00:00 Completed [facility] [place] [facility] 2008-07-22 00:00:00 Completed [facility] Hep B, Adol or Pedi Dosage 2008-07-22 00:00:00 Completed [facility] TD, NOS 2008-07-22 00:00:00 Completed [facility] HEPATITIS A 2008-07-22 00:00:00 Completed [facility] Hep B, Adol or Pedi Dosage 2008-07-22 00:00:00 Completed [facility] TD, NOS 2008-07-22 00:00:00 Completed [facility] HEPATITIS A 2008-07-22 00:00:00 Completed [facility] Hep B, Adol or Pedi Dosage 2008-07-22 00:00:00 Completed [facility] TD, NOS 2008-07-22 00:00:00 Completed [facility] HEPATITIS A 2008-07-22 00:00:00 Completed [facility] Hep B, Adol or Pedi Dosage 2008-07-22 00:00:00 Completed [facility] TD, NOS 2008-07-22 00:00:00 Completed [facility] HEPATITIS A 2008-07-22 00:00:00 Completed [facility] Hep B, Adol or Pedi Dosage 2008-07-22 00:00:00 Completed [facility] TD, NOS 2008-07-22 00:00:00 Completed [facility] HEPATITIS A 2008-07-22 00:00:00 Completed [facility] Hep B, Adol or Pedi Dosage 2008-07-22 00:00:00 Completed [facility] TD, NOS 2008-07-22 00:00:00 Completed [facility] HEPATITIS A 2008-07-22 00:00:00 Completed [facility] Hep B, Adol or Pedi Dosage 2008-07-22 00:00:00 Completed [facility] TD, NOS 2008-07-22 00:00:00 Completed [facility] HEPATITIS A 2008-07-22 00:00:00 Completed [facility] Hep B, Adol or Pedi Dosage 2008-07-22 00:00:00 Completed [facility] TD, NOS 2008-07-22 00:00:00 Completed [facility] HEPATITIS A 2008-07-22 00:00:00 Completed [facility] Hep B, Adol or Pedi Dosage 2008-07-22 00:00:00 Completed [facility] TD, NOS 2008-07-22 00:00:00 Completed [facility] HEPATITIS A 2008-07-22 00:00:00 Completed [facility] Hep B, Adol or Pedi Dosage 2008-07-22 00:00:00 Completed [facility] TD, NOS 2008-07-22 00:00:00 Completed [facility] HEPATITIS A 2008-07-22 00:00:00 Completed [facility] Hep B, Adol or Pedi Dosage 2008-07-22 00:00:00 Completed [facility] TD, NOS 2008-07-22 00:00:00 Completed [facility] HEPATITIS A 2008-07-22 00:00:00 Completed [facility] Hep B, Adol or Pedi Dosage 2008-07-22 00:00:00 Completed [facility] TD, NOS 2008-07-22 00:00:00 Completed [facility] HEPATITIS A 2008-07-22 00:00:00 Completed [facility] Hep B, Adol or Pedi Dosage 2008-07-22 00:00:00 Completed [facility] TD, NOS 2008-07-22 00:00:00 Completed [facility] HEPATITIS A 2008-07-22 00:00:00 Completed [facility] Hep B, Adol or Pedi Dosage 2008-07-22 00:00:00 Completed [facility] TD, NOS 2008-07-22 00:00:00 Completed [facility] HEPATITIS A 2008-07-22 00:00:00 Completed [facility] Hep B, Adol or Pedi Dosage 2008-07-22 00:00:00 Completed [facility] TD, NOS 2008-07-22 00:00:00 Completed [facility] HEPATITIS A 2008-07-22 00:00:00 Completed [facility] Hep B, Adol or Pedi Dosage 2008-07-22 00:00:00 Completed [facility] TD, NOS 2008-07-22 00:00:00 Completed [facility] HEPATITIS A 2008-07-22 00:00:00 Completed [facility] Hep B, Adol or Pedi Dosage 2008-07-22 00:00:00 Completed [facility] TD, NOS 2008-07-22 00:00:00 Completed [facility] HEPATITIS A 2008-07-22 00:00:00 Completed [facility] Hep B, Adol or Pedi Dosage 2008-07-22 00:00:00 Completed [facility] TD, NOS 2008-07-22 00:00:00 Completed [facility] HEPATITIS A 2008-07-22 00:00:00 Completed [facility] Hep B, Adol or Pedi Dosage 2008-07-22 00:00:00 Completed [facility] TD, NOS 2008-07-22 00:00:00 Completed [facility] HEPATITIS A 2008-07-22 00:00:00 Completed [facility] Hep B, Adol or Pedi Dosage 2008-07-22 00:00:00 Completed [facility] TD, NOS 2008-07-22 00:00:00 Completed [facility] HEPATITIS A 2008-07-22 00:00:00 Completed [facility] Hep B, Adol or Pedi Dosage 2008-07-22 00:00:00 Completed [facility] TD, NOS 2008-07-22 00:00:00 Completed [facility] HEPATITIS A 2008-07-22 00:00:00 Completed [facility] Hep B, Adol or Pedi Dosage 2008-07-22 00:00:00 Completed [facility] TD, NOS 2008-07-22 00:00:00 Completed [facility] HEPATITIS A 2005-09-21 00:00:00 Completed [facility] HEPATITIS A 2005-09-21 00:00:00 Completed [facility] HEPATITIS A 2005-09-21 00:00:00 Completed [facility] HEPATITIS A 2005-09-21 00:00:00 Completed [facility] HEPATITIS A 2005-09-21 00:00:00 Completed [facility] HEPATITIS A 2005-09-21 00:00:00 Completed [facility] HEPATITIS A 2005-09-21 00:00:00 Completed [facility] HEPATITIS A 2005-09-21 00:00:00 Completed [facility] HEPATITIS A 2005-09-21 00:00:00 Completed [facility] HEPATITIS A 2005-09-21 00:00:00 Completed [facility] HEPATITIS A 2005-09-21 00:00:00 Completed [facility] HEPATITIS A 2005-09-21 00:00:00 Completed [facility] HEPATITIS A 2005-09-21 00:00:00 Completed [facility] HEPATITIS A 2005-09-21 00:00:00 Completed [facility] HEPATITIS A 2005-09-21 00:00:00 Completed [facility] HEPATITIS A 2005-09-21 00:00:00 Completed [facility] HEPATITIS A 2005-09-21 00:00:00 Completed [facility] HEPATITIS A 2005-09-21 00:00:00 Completed [facility] HEPATITIS A 2005-09-21 00:00:00 Completed [facility] HEPATITIS A 2005-09-21 00:00:00 Completed [facility] HEPATITIS A 2005-09-21 00:00:00 Completed [facility] HEPATITIS A 2005-09-21 00:00:00 Completed [facility] HEPATITIS A 2005-09-21 00:00:00 Completed [facility] HEPATITIS A 2005-09-21 00:00:00 Completed [facility] HEPATITIS A 2005-09-21 00:00:00 Completed [facility] HEPATITIS A 2005-09-21 00:00:00 Completed [facility] HEPATITIS A 2005-09-21 00:00:00 Completed [facility] HEPATITIS A 2005-09-21 00:00:00 Completed [facility] HEPATITIS A 2005-09-21 00:00:00 Completed [facility] HEPATITIS A 2005-09-21 00:00:00 Completed [facility] HEPATITIS A 2005-09-21 00:00:00 Completed [facility] HEPATITIS A 2005-09-21 00:00:00 Completed [facility] HEPATITIS A 2005-09-21 00:00:00 Completed [facility] HEPATITIS A 2005-09-21 00:00:00 Completed [facility] HEPATITIS A 2005-09-21 00:00:00 Completed [facility] HEPATITIS A 2005-09-21 00:00:00 Completed [facility] HEPATITIS A 2005-09-21 00:00:00 Completed [facility] HEPATITIS A 2005-09-21 00:00:00 Completed [facility] HEPATITIS A 2005-09-21 00:00:00 Completed [facility] HEPATITIS A 2005-09-21 00:00:00 Completed [facility] HEPATITIS A 2005-09-21 00:00:00 Completed [facility] HEPATITIS A 2005-09-21 00:00:00 Completed [facility] HEPATITIS A 2005-09-21 00:00:00 Completed [facility] HEPATITIS A 2005-09-21 00:00:00 Completed [facility] HEPATITIS A 2005-09-21 00:00:00 Completed [facility] HEPATITIS A 2005-09-21 00:00:00 Completed [facility] HEPATITIS A 2005-09-21 00:00:00 Completed [facility] HEPATITIS A 2005-09-21 00:00:00 Completed [facility] HEPATITIS A 2005-09-21 00:00:00 Completed [facility] HEPATITIS A 2005-09-21 00:00:00 Completed [facility] HEPATITIS A 2005-09-21 00:00:00 Completed [facility] HEPATITIS A 2005-09-21 00:00:00 Completed [facility] HEPATITIS A 2005-09-21 00:00:00 Completed [facility] HEPATITIS A 2005-09-21 00:00:00 Completed [facility] HEPATITIS A 2005-09-21 00:00:00 Completed [facility] HEPATITIS A 2005-09-21 00:00:00 Completed [facility] HEPATITIS A 2005-09-21 00:00:00 Completed [facility] HEPATITIS A 2005-09-21 00:00:00 Completed [facility] HEPATITIS A 2005-09-21 00:00:00 Completed [facility] HEPATITIS A 2005-09-21 00:00:00 Completed [facility] HEPATITIS A 2005-09-21 00:00:00 Completed [facility] HEPATITIS A 2005-09-21 00:00:00 Completed [facility] HEPATITIS A 2005-09-21 00:00:00 Completed [facility] HEPATITIS A 2005-09-21 00:00:00 Completed [facility] HEPATITIS A 2005-09-21 00:00:00 Completed [facility] Hep B, Adol or Pedi Dosage Unknown Completed [facility] Hep B, Adol or Pedi Dosage Unknown Completed [facility] TD, NOS Unknown Completed [facility] Hep B, Adol or Pedi Dosage Unknown Completed [facility] Influenza Virus Vaccine - Whole Unknown Completed [facility] Pneumococcal Polysaccharide, PPSV23 (PNEUMOVAX) Unknown Completed [facility] TD, NOS Unknown Completed [facility] Influenza Virus Vaccine Unknown Completed [facility] Influenza Virus Vaccine Quad .5 mL IM 6+ MO (FLUZONE/FLULAVAL/F LUARIX) Unknown Completed [facility] SARS-COV-2 COVID-19 MODERNA 12+ YRS VACCINE Unknown Completed [facility] SARS-COV-2 COVID-19 MODERNA 12+ YRS VACCINE Unknown Completed [facility] Influenza Virus Vaccine Unknown Completed [facility] Influenza Virus Vaccine Quad IM, Preserv and ABX Free 6 MO-64 YRS (FLUCELVAX) Unknown Completed [facility] TDAP Unknown Completed [facility] MMR Unknown Completed [facility] Varicella (varivax)(chicken pox) Unknown Completed [facility] Influenza Virus Vaccine Unknown Completed [facility] HEPATITIS A Unknown Completed [facility] HEPATITIS A Unknown Completed [facility] Hep B, Adol or Pedi Dosage Unknown Completed [facility] Hep B, Adol or Pedi Dosage Unknown Completed [facility] TD, NOS Unknown Completed [facility] Hep B, Adol or Pedi Dosage Unknown Completed [facility] Influenza Virus Vaccine - Whole Unknown Completed [facility] Pneumococcal Polysaccharide, PPSV23 (PNEUMOVAX) Unknown Completed [facility] TD, NOS Unknown Completed [facility] Influenza Virus Vaccine Unknown Completed [facility] Influenza Virus Vaccine Quad .5 mL IM 6+ MO (FLUZONE/FLULAVAL/F LUARIX) Unknown Completed [facility] SARS-COV-2 COVID-19 MODERNA 12+ YRS VACCINE Unknown Completed [facility] SARS-COV-2 COVID-19 MODERNA 12+ YRS VACCINE Unknown Completed [facility] Influenza Virus Vaccine Unknown Completed [facility] Influenza Virus Vaccine Quad IM, Preserv and ABX Free 6 MO-64 YRS (FLUCELVAX) Unknown Completed [facility] TDAP Unknown Completed [facility] MMR Unknown Completed [facility] Varicella (varivax)(chicken pox) Unknown Completed [facility] Influenza Virus Vaccine Unknown Completed [facility] HEPATITIS A Unknown Completed [facility] HEPATITIS A Unknown Completed [facility] Hep B, Adol or Pedi Dosage Unknown Completed [facility] Hep B, Adol or Pedi Dosage Unknown Completed [facility] TD, NOS Unknown Completed [facility] Hep B, Adol or Pedi Dosage Unknown Completed [facility] Influenza Virus Vaccine - Whole Unknown Completed [facility] Pneumococcal Polysaccharide, PPSV23 (PNEUMOVAX) Unknown Completed [facility] TD, NOS Unknown Completed [facility] Influenza Virus Vaccine Unknown Completed [facility] Influenza Virus Vaccine Quad .5 mL IM 6+ MO (FLUZONE/FLULAVAL/F LUARIX) Unknown Completed [facility] SARS-COV-2 COVID-19 MODERNA 12+ YRS VACCINE Unknown Completed [facility] SARS-COV-2 COVID-19 MODERNA 12+ YRS VACCINE Unknown Completed [facility] Influenza Virus Vaccine Unknown Completed [facility] Influenza Virus Vaccine Quad IM, Preserv and ABX Free 6 MO-64 YRS (FLUCELVAX) Unknown Completed [facility] TDAP Unknown Completed [facility] MMR Unknown Completed [facility] Varicella (varivax)(chicken pox) Unknown Completed [facility] Influenza Virus Vaccine Unknown Completed [facility] HEPATITIS A Unknown Completed [facility] HEPATITIS A Unknown Completed [facility] Hep B, Adol or Pedi Dosage Unknown Completed [facility] Hep B, Adol or Pedi Dosage Unknown Completed [facility] TD, NOS Unknown Completed [facility] Hep B, Adol or Pedi Dosage Unknown Completed [facility] Influenza Virus Vaccine - Whole Unknown Completed [facility] Pneumococcal Polysaccharide, PPSV23 (PNEUMOVAX) Unknown Completed [facility] TD, NOS Unknown Completed [facility] Influenza Virus Vaccine Unknown Completed [facility] Influenza Virus Vaccine Quad .5 mL IM 6+ MO (FLUZONE/FLULAVAL/F LUARIX) Unknown Completed [facility] SARS-COV-2 COVID-19 MODERNA 12+ YRS VACCINE Unknown Completed [facility] SARS-COV-2 COVID-19 MODERNA 12+ YRS VACCINE Unknown Completed [facility] Influenza Virus Vaccine Unknown Completed [facility] Influenza Virus Vaccine Quad IM, Preserv and ABX Free 6 MO-64 YRS (FLUCELVAX) Unknown Completed [facility] TDAP Unknown Completed [facility] MMR Unknown Completed [facility] Varicella (varivax)(chicken pox) Unknown Completed [facility] Influenza Virus Vaccine Unknown Completed [facility] HEPATITIS A Unknown Completed [facility] HEPATITIS A Unknown Completed [facility] Hep B, Adol or Pedi Dosage Unknown Completed [facility] Hep B, Adol or Pedi Dosage Unknown Completed [facility] TD, NOS Unknown Completed [facility] Hep B, Adol or Pedi Dosage Unknown Completed [facility] Influenza Virus Vaccine - Whole Unknown Completed [facility] Pneumococcal Polysaccharide, PPSV23 (PNEUMOVAX) Unknown Completed [facility] TD, NOS Unknown Completed [facility] Influenza Virus Vaccine Unknown Completed [facility] Influenza Virus Vaccine Quad .5 mL IM 6+ MO (FLUZONE/FLULAVAL/F LUARIX) Unknown Completed [facility] SARS-COV-2 COVID-19 MODERNA 12+ YRS VACCINE Unknown Completed [facility] SARS-COV-2 COVID-19 MODERNA 12+ YRS VACCINE Unknown Completed [facility] Influenza Virus Vaccine Unknown Completed [facility] Influenza Virus Vaccine Quad IM, Preserv and ABX Free 6 MO-64 YRS (FLUCELVAX) Unknown Completed [facility] TDAP Unknown Completed [facility] MMR Unknown Completed [facility] Varicella (varivax)(chicken pox) Unknown Completed [facility] Influenza Virus Vaccine Unknown Completed [facility] HEPATITIS A Unknown [facility] HEPATITIS A Unknown Completed [facility] Hep B, Adol or Pedi Dosage Unknown Completed [facility] Hep B, Adol or Pedi Dosage Unknown Completed [facility] TD, NOS Unknown Completed [facility] Hep B, Adol or Pedi Dosage Unknown Completed [facility] Influenza Virus Vaccine - Whole Unknown Completed [facility] Pneumococcal Polysaccharide, PPSV23 (PNEUMOVAX) Unknown Completed [facility] TD, NOS Unknown Completed [facility] Influenza Virus Vaccine Unknown Completed [facility] Influenza Virus Vaccine Quad .5 mL IM 6+ MO (FLUZONE/FLULAVAL/F LUARIX) Unknown Completed [facility] SARS-COV-2 COVID-19 MODERNA 12+ YRS VACCINE Unknown Completed [facility] SARS-COV-2 COVID-19 MODERNA 12+ YRS VACCINE Unknown Completed [facility] Influenza Virus Vaccine Unknown Completed [facility] Influenza Virus Vaccine Quad IM, Preserv and ABX Free 6 MO-64 YRS (FLUCELVAX) Unknown Completed [facility] TDAP Unknown Completed [facility] MMR Unknown Completed [facility] Varicella (varivax)(chicken pox) Unknown Completed [facility] Influenza Virus Vaccine Unknown Completed [facility] HEPATITIS A Unknown Com[facility] HE[facility] Unknown Completed [facility] Hep B, Adol or Pedi Dosage Unknown Completed [facility] Hep B, Adol or Pedi Dosage Unknown Completed [facility] TD, NOS Unknown Completed [facility] Hep B, Adol or Pedi Dosage Unknown Completed [facility] Influenza Virus Vaccine - Whole Unknown Completed [facility] Pneumococcal Polysaccharide, PPSV23 (PNEUMOVAX) Unknown [facility] TD, NOS Unknown Completed [facility] Influenza Virus Vaccine Unknown Completed [facility] Influenza Virus Vaccine Quad .5 mL IM 6+ MO (FLUZONE/FLULAVAL/F LUARIX) Unknown Completed [facility] SARS-COV-2 COVID-19 MODERNA 12+ YRS VACCINE Unknown Completed [facility] SARS-COV-2 COVID-19 MODERNA 12+ YRS VACCINE Unknown Completed [facility] Influenza Virus Vaccine Unknown [facility] [facility] Influenza Virus Vaccine Quad IM, Preserv and ABX Free 6 MO-64 YRS (FLUCELVAX) Unknown Completed [facility] TDAP Unknown Completed [facility] MMR Unknown Completed [facility] Varicella (varivax)(chicken pox) Unknown Completed [facility] Influenza Virus Vaccine Unknown Completed [facility] HEPATITIS A Unknown Completed [facility] HEPATITIS A Unknown Completed [facility] Hep B, Adol or Pedi Dosage Unknown Completed [facility] Hep B, Adol or Pedi Dosage Unknown Completed [facility] TD, NOS Unknown Completed [facility] Hep B, Adol or Pedi Dosage Unknown Completed [facility] Influenza Virus Vaccine - Whole Unknown Completed [facility] Pneumococcal Polysaccharide, PPSV23 (PNEUMOVAX) Unknown Completed [facility] TD, NOS Unknown Completed [facility] Influenza Virus Vaccine Unknown Completed [facility] Influenza Virus Vaccine Quad .5 mL IM 6+ MO (FLUZONE/FLULAVAL/F LUARIX) Unknown Completed [facility] SARS-COV-2 COVID-19 MODERNA 12+ YRS VACCINE Unknown Completed [facility] SARS-COV-2 COVID-19 MODERNA 12+ YRS VACCINE Unknown Completed [facility] Influenza Virus Vaccine Unknown Completed [facility] Influenza Virus Vaccine Quad IM, Preserv and ABX Free 6 MO-64 YRS (FLUCELVAX) Unknown Completed [facility] TDAP Unknown Completed [facility] MMR Unknown Completed [facility] Varicella (varivax)(chicken pox) Unknown Completed [facility] Influenza Virus Vaccine Unknown Completed [facility] HEPATITIS A Unknown Completed [facility] HEPATITIS A Unknown Completed [facility] Hep B, Adol or Pedi Dosage Unknown Completed [facility] Hep B, Adol or Pedi Dosage Unknown Completed [facility] TD, NOS Unknown Completed [facility] Hep B, Adol or Pedi Dosage Unknown Completed [facility] Influenza Virus Vaccine - Whole Unknown Completed [facility] Pneumococcal Polysaccharide, PPSV23 (PNEUMOVAX) Unknown Completed [facility] TD, NOS Unknown Completed [facility] Influenza Virus Vaccine Unknown Completed [facility] Influenza Virus Vaccine Quad .5 mL IM 6+ MO (FLUZONE/FLULAVAL/F LUARIX) Unknown Completed [facility] SARS-COV-2 COVID-19 MODERNA 12+ YRS VACCINE Unknown Completed [facility] SARS-COV-2 COVID-19 MODERNA 12+ YRS VACCINE Unknown Completed [facility] Influenza Virus Vaccine Unknown Completed [facility] Influenza Virus Vaccine Quad IM, Preserv and ABX Free 6 MO-64 YRS (FLUCELVAX) Unknown Completed [facility] TDAP Unknown Completed [facility] MMR Unknown Completed [facility] Varicella (varivax)(chicken pox) Unknown Completed [facility] Influenza Virus Vaccine Unknown Completed [facility] HEPATITIS A Unknown Completed [facility] HEPATITIS A Unknown Completed [facility] Hep B, Adol or Pedi Dosage Unknown Completed [facility] Hep B, Adol or Pedi Dosage Unknown Completed [facility] TD, NOS Unknown Completed [facility] Hep B, Adol or Pedi Dosage Unknown Completed [facility] Influenza Virus Vaccine - Whole Unknown Completed [facility] Pneumococcal Polysaccharide, PPSV23 (PNEUMOVAX) Unknown Completed [facility] TD, NOS Unknown Completed [facility] Influenza Virus Vaccine Unknown Completed [facility] Influenza Virus Vaccine Quad .5 mL IM 6+ MO (FLUZONE/FLULAVAL/F LUARIX) Unknown Completed [facility] SARS-COV-2 COVID-19 MODERNA 12+ YRS VACCINE Unknown Completed [facility] SARS-COV-2 COVID-19 MODERNA 12+ YRS VACCINE Unknown Completed [facility] Influenza Virus Vaccine Unknown Completed [facility] Influenza Virus Vaccine Quad IM, Preserv and ABX Free 6 MO-64 YRS (FLUCELVAX) Unknown Completed [facility] TDAP Unknown Completed [facility] MMR Unknown Completed [facility] Varicella (varivax)(chicken pox) Unknown Completed [facility] Influenza Virus Vaccine Unknown Completed [facility] HEPATITIS A Unknown Completed [facility] HEPATITIS A Unknown Completed [facility] Hep B, Adol or Pedi Dosage Unknown Completed [facility] Hep B, Adol or Pedi Dosage Unknown Completed [facility] TD, NOS Unknown Completed [facility] Hep B, Adol or Pedi Dosage Unknown Completed [facility] Influenza Virus Vaccine - Whole Unknown Completed [facility] Pneumococcal Polysaccharide, PPSV23 (PNEUMOVAX) Unknown Completed [facility] TD, NOS Unknown Completed [facility] Influenza Virus Vaccine Unknown Completed [facility] Influenza Virus Vaccine Quad .5 mL IM 6+ MO (FLUZONE/FLULAVAL/F LUARIX) Unknown Completed [facility] SARS-COV-2 COVID-19 MODERNA 12+ YRS VACCINE Unknown Completed [facility] SARS-COV-2 COVID-19 MODERNA 12+ YRS VACCINE Unknown Completed [facility] Influenza Virus Vaccine Unknown Completed [facility] Influenza Virus Vaccine Quad IM, Preserv and ABX Free 6 MO-64 YRS (FLUCELVAX) Unknown Completed [facility] TDAP Unknown Completed [facility] MMR Unknown Completed [facility] Varicella (varivax)(chicken pox) Unknown Completed [facility] Influenza Virus Vaccine Unknown Completed [facility] HEPATITIS A Unknown Completed [facility] HEPATITIS A Unknown Completed [facility] Hep B, Adol or Pedi Dosage Unknown Completed [facility] Hep B, Adol or Pedi Dosage Unknown Completed [facility] TD, NOS Unknown Completed [facility] Hep B, Adol or Pedi Dosage Unknown Completed [facility] Influenza Virus Vaccine - Whole Unknown Completed [facility] Pneumococcal Polysaccharide, PPSV23 (PNEUMOVAX) Unknown Completed [facility] TD, NOS Unknown Completed [facility] Influenza Virus Vaccine Unknown Completed [facility] Influenza Virus Vaccine Quad .5 mL IM 6+ MO (FLUZONE/FLULAVAL/F LUARIX) Unknown Completed [facility] SARS-COV-2 COVID-19 MODERNA 12+ YRS VACCINE Unknown Completed [facility] SARS-COV-2 COVID-19 MODERNA 12+ YRS VACCINE Unknown Completed [facility] Influenza Virus Vaccine Unknown Completed [facility] Influenza Virus Vaccine Quad IM, Preserv and ABX Free 6 MO-64 YRS (FLUCELVAX) Unknown Completed [facility] TDAP Unknown Completed [facility] MMR Unknown Completed [facility] Varicella (varivax)(chicken pox) Unknown Completed [facility] Influenza Virus Vaccine Unknown Completed [facility]PATITIS A [facility] HEPATITIS A Unknown Completed [facility] Hep B, Adol or Pedi Dosage Unknown Completed [facility] Hep B, Adol or Pedi Dosage Unknown Completed [facility] TD, NOS Unknown Completed [facility] Hep B, Adol or Pedi Dosage Unknown Completed [facility] Influenza Virus Vaccine - Whole Unknown Completed [facility] Pneumococcal Polysaccharide, PPSV23 (PNEUMOVAX) Unknown Completed [facility] TD, NOS Unknown Completed [facility] Influenza Virus Vaccine Unknown Completed [facility] Influenza Virus Vaccine Quad .5 mL IM 6+ MO (FLUZONE/FLULAVAL/F LUARIX) Unknown Completed [facility] SARS-COV-2 COVID-19 MODERNA 12+ YRS VACCINE Unknown Completed [facility] SARS-COV-2 COVID-19 MODERNA 12+ YRS VACCINE Unknown Completed [facility] Influenza Virus Vaccine Unknown Completed [facility] Influenza Virus Vaccine Quad IM, Preserv and ABX Free 6 MO-64 YRS (FLUCELVAX) Unknown Completed [facility] TDAP Unknown Completed [facility] MMR Unknown Completed [facility] Varicella (varivax)(chicken pox) Unknown Completed [facility] Influenza Virus Vaccine Unknown Completed [facility] HEPATITIS A Unknown [facility] HEPATITIS A Unknown Completed [facility] Hep B, Adol or Pedi Dosage Unknown Completed [facility] Hep B, Adol or Pedi Dosage Unknown Completed [facility] TD, NOS Unknown Completed [facility] Hep B, Adol or Pedi Dosage Unknown Completed [facility] Influenza Virus Vaccine - Whole Unknown Completed [facility] Pneumococcal Polysaccharide, PPSV23 (PNEUMOVAX) Unknown Completed [facility] TD, NOS Unknown Completed [facility] Influenza Virus Vaccine Unknown Completed [facility] Influenza Virus Vaccine Quad .5 mL IM 6+ MO (FLUZONE/FLULAVAL/F LUARIX) Unknown Completed [facility] SARS-COV-2 COVID-19 MODERNA 12+ YRS VACCINE Unknown Completed [facility] SARS-COV-2 COVID-19 MODERNA 12+ YRS VACCINE Unknown Completed [facility] Influenza Virus Vaccine Unknown Completed [facility] Influenza Virus Vaccine Quad IM, Preserv and ABX Free 6 MO-64 YRS (FLUCELVAX) Unknown Completed [facility] TDAP Unknown Completed [facility] MMR Unknown Completed [facility] Varicella (varivax)(chicken pox) Unknown Completed [facility] Influenza Virus Vaccine Unknown Completed [facility] HEPATITIS A Unknown Completed [facility] HEPATITIS A Unknown Completed [facility] Hep B, Adol or Pedi Dosage Unknown Completed [facility] Hep B, Adol or Pedi Dosage Unknown Completed [facility] TD, NOS Unknown Completed [facility] Hep B, Adol or Pedi Dosage Unknown Completed [facility] Influenza Virus Vaccine - Whole Unknown Completed [facility] Pneumococcal Polysaccharide, PPSV23 (PNEUMOVAX) Unknown Completed [facility] TD, NOS Unknown Completed [facility] Influenza Virus Vaccine Unknown Completed [facility] Influenza Virus Vaccine Quad .5 mL IM 6+ MO (FLUZONE/FLULAVAL/F LUARIX) Unknown Completed [facility] SARS-COV-2 COVID-19 MODERNA 12+ YRS VACCINE Unknown Completed [facility] SARS-COV-2 COVID-19 MODERNA 12+ YRS VACCINE Unknown Completed [facility] Influenza Virus Vaccine Unknown Completed [facility] Influenza Virus Vaccine Quad IM, Preserv and ABX Free 6 MO-64 YRS (FLUCELVAX) Unknown Completed [facility] TDAP Unknown Completed [facility] MMR Unknown Completed [facility] Varicella (varivax)(chicken pox) Unknown Completed [facility] Influenza Virus Vaccine Unknown Completed [facility] HEPATITIS A Unknown Completed [facility] HEPATITIS A Unknown Completed [facility] Hep B, Adol or Pedi Dosage Unknown Completed [facility] Hep B, Adol or Pedi Dosage Unknown Completed [facility] TD, NOS Unknown Completed [facility] Hep B, Adol or Pedi Dosage Unknown Completed [facility] Influenza Virus Vaccine - Whole Unknown Completed [facility] Pneumococcal Polysaccharide, PPSV23 (PNEUMOVAX) Unknown Completed [facility] TD, NOS Unknown Completed [facility] Influenza Virus Vaccine Unknown Completed [facility] Influenza Virus Vaccine Quad .5 mL IM 6+ MO (FLUZONE/FLULAVAL/F LUARIX) Unknown Completed [facility] SARS-COV-2 COVID-19 MODERNA 12+ YRS VACCINE Unknown Completed [facility] SARS-COV-2 COVID-19 MODERNA 12+ YRS VACCINE Unknown Completed [facility] Influenza Virus Vaccine Unknown Completed [facility] Influenza Virus Vaccine Quad IM, Preserv and ABX Free 6 MO-64 YRS (FLUCELVAX) Unknown Completed [facility] TDAP Unknown Completed [facility] MMR Unknown Completed [facility] Varicella (varivax)(chicken pox) Unknown Completed [facility] Influenza Virus Vaccine Unknown Completed [facility] HEPATITIS A Unknown Completed [facility] HEPATITIS A Unknown Completed [facility] Hep B, Adol or Pedi Dosage Unknown Completed [facility] Hep B, Adol or Pedi Dosage Unknown Completed [facility] TD, NOS Unknown Completed [facility] Hep B, Adol or Pedi Dosage Unknown Completed [facility] Influenza Virus Vaccine - Whole Unknown Completed [facility] Pneumococcal Polysaccharide, PPSV23 (PNEUMOVAX) Unknown Completed [facility] TD, NOS Unknown Completed [facility] Influenza Virus Vaccine Unknown Completed [facility] Influenza Virus Vaccine Quad .5 mL IM 6+ MO (FLUZONE/FLULAVAL/F LUARIX) Unknown Completed [facility] SARS-COV-2 COVID-19 MODERNA 12+ YRS VACCINE Unknown Completed [facility] SARS-COV-2 COVID-19 MODERNA 12+ YRS VACCINE Unknown Completed [facility] Influenza Virus Vaccine Unknown Completed [facility] Influenza Virus Vaccine Quad IM, Preserv and ABX Free 6 MO-64 YRS (FLUCELVAX) Unknown Completed [facility] TDAP Unknown Completed [facility] MMR Unknown Completed [facility] Varicella (varivax)(chicken pox) Unknown Completed [facility] Influenza Virus Vaccine Unknown Completed [facility] HEPATITIS A Unknown [facility] HEPATITIS A Unknown Completed [facility] Hep B, Adol or Pedi Dosage Unknown Completed [facility] Hep B, Adol or Pedi Dosage Unknown Completed [facility] TD, NOS Unknown Completed [facility] Hep B, Adol or Pedi Dosage Unknown Completed [facility] Influenza Virus Vaccine - Whole Unknown Completed [facility] Pneumococcal Polysaccharide, PPSV23 (PNEUMOVAX) Unknown Completed [facility] TD, NOS Unknown Completed [facility] Influenza Virus Vaccine Unknown Completed [facility] Influenza Virus Vaccine Quad .5 mL IM 6+ MO (FLUZONE/FLULAVAL/F LUARIX) Unknown Completed [facility] SARS-COV-2 COVID-19 MODERNA 12+ YRS VACCINE Unknown Completed [facility] SARS-COV-2 COVID-19 MODERNA 12+ YRS VACCINE Unknown Completed [facility] Influenza Virus Vaccine Unknown Completed [facility] Influenza Virus Vaccine Quad IM, Preserv and ABX Free 6 MO-64 YRS (FLUCELVAX) Unknown Completed [facility] TDAP Unknown Completed [facility] MMR Unknown Completed [facility] Varicella (varivax)(chicken pox) Unknown Completed [facility] Influenza Virus Vaccine Unknown Completed [facility] HEPATITIS A Unknown Com[facility] HEPATITIS A Unknown Completed [facility] Hep B, Adol or Pedi Dosage Unknown Completed [facility] Hep B, Adol or Pedi Dosage Unknown Completed [facility] TD, NOS Unknown Completed [facility] Hep B, Adol or Pedi Dosage Unknown Completed [facility] Influenza Virus Vaccine - Whole Unknown Completed [facility] Pneumococcal Polysaccharide, PPSV23 (PNEUMOVAX) Unknown Completed [facility] TD, NOS Unknown Completed [facility] Influenza Virus Vaccine Unknown Completed [facility] Influenza Virus Vaccine Quad .5 mL IM 6+ MO (FLUZONE/FLULAVAL/F LUARIX) Unknown Completed [facility] SARS-COV-2 COVID-19 MODERNA 12+ YRS VACCINE Unknown Completed [facility] SARS-COV-2 COVID-19 MODERNA 12+ YRS VACCINE Unknown Completed [facility] Influenza Virus Vaccine Unknown Completed [facility] Influenza Virus Vaccine Quad IM, Preserv and ABX Free 6 MO-64 YRS (FLUCELVAX) Unknown Completed [facility] TDAP Unknown Completed [facility] MMR Unknown Completed [facility] Varicella (varivax)(chicken pox) Unknown Completed [facility] Influenza Virus Vaccine Unknown Completed [facility] HEPATITIS A Unknown Completed [facility] HEPATITIS A Unknown Completed [facility] Hep B, Adol or Pedi Dosage Unknown Completed [facility] Hep B, Adol or Pedi Dosage Unknown Completed [facility] TD, NOS Unknown Completed [facility] Hep B, Adol or Pedi Dosage Unknown Completed [facility] Influenza Virus Vaccine - Whole Unknown Completed [facility] Pneumococcal Polysaccharide, PPSV23 (PNEUMOVAX) Unknown Completed [facility] TD, NOS Unknown Completed [facility] Influenza Virus Vaccine Unknown Completed [facility] Influenza Virus Vaccine Quad .5 mL IM 6+ MO (FLUZONE/FLULAVAL/F LUARIX) Unknown Completed [facility] SARS-COV-2 COVID-19 MODERNA 12+ YRS VACCINE Unknown Completed [facility] SARS-COV-2 COVID-19 MODERNA 12+ YRS VACCINE Unknown Completed [facility] Influenza Virus Vaccine Unknown Completed [facility] Influenza Virus Vaccine Quad IM, Preserv and ABX Free 6 MO-64 YRS (FLUCELVAX) Unknown Completed [facility] TDAP Unknown Completed [facility] MMR Unknown Completed [facility] Varicella (varivax)(chicken pox) Unknown Completed [facility] Influenza Virus Vaccine Unknown Completed [facility] HEPATITIS A Unknown Completed [facility] HEPATITIS A Unknown Completed [facility] Hep B, Adol or Pedi Dosage Unknown Completed [facility] Hep B, Adol or Pedi Dosage Unknown Completed [facility] TD, NOS Unknown Completed [facility] [facility] Hep B, Adol or Pedi Dosage Unknown Completed [facility] Influenza Virus Vaccine - Whole Unknown Completed [facility] Pneumococcal Polysaccharide, PPSV23 (PNEUMOVAX) Unknown Completed [facility] TD, NOS Unknown Completed [facility] Influenza Virus Vaccine Unknown Completed [facility] Influenza Virus Vaccine Quad .5 mL IM 6+ MO (FLUZONE/FLULAVAL/F LUARIX) Unknown Completed [facility] SARS-COV-2 COVID-19 MODERNA 12+ YRS VACCINE Unknown Completed [facility] SARS-COV-2 COVID-19 MODERNA 12+ YRS VACCINE Unknown Completed [facility] Influenza Virus Vaccine Unknown Completed [facility] Influenza Virus Vaccine Quad IM, Preserv and ABX Free 6 MO-64 YRS (FLUCELVAX) Unknown Completed [facility] TDAP Unknown Completed [facility] MMR Unknown Completed [facility] Varicella (varivax)(chicken pox) Unknown Completed [facility] Influenza Virus Vaccine Unknown Completed [facility] HEPATITIS A Unknown Completed [facility] HEPATITIS A Unknown Completed [facility] Hep B, Adol or Pedi Dosage Unknown Completed [facility] Hep B, Adol or Pedi Dosage Unknown Completed [facility] TD, NOS Unknown Completed [facility] Hep B, Adol or Pedi Dosage Unknown Completed [facility] Influenza Virus Vaccine - Whole Unknown Completed [facility] Pneumococcal Polysaccharide, PPSV23 (PNEUMOVAX) Unknown Completed [facility] TD, NOS Unknown Completed [facility] Influenza Virus Vaccine Unknown Completed [facility] Influenza Virus Vaccine Quad .5 mL IM 6+ MO (FLUZONE/FLULAVAL/F LUARIX) Unknown Completed [facility] SARS-COV-2 COVID-19 MODERNA 12+ YRS VACCINE Unknown Completed [facility] SARS-COV-2 COVID-19 MODERNA 12+ YRS VACCINE Unknown Completed [facility] Influenza Virus Vaccine Unknown Completed [facility] Influenza Virus Vaccine Quad IM, Preserv and ABX Free 6 MO-64 YRS (FLUCELVAX) Unknown Completed [facility] TDAP Unknown Completed [facility] MMR Unknown Completed [facility] Varicella (varivax)(chicken pox) Unknown Completed [facility] Influenza Virus Vaccine Unknown Completed [facility] HEPATITIS A Unknown Completed [facility] HEPATITIS A Unknown Completed [facility] Hep B, Adol or Pedi Dosage Unknown Completed [facility] Hep B, Adol or Pedi Dosage Unknown Completed [facility] TD, NOS Unknown Completed [facility] Hep B, Adol or Pedi Dosage Unknown Completed [facility] Influenza Virus Vaccine - Whole Unknown Completed [facility] Pneumococcal Polysaccharide, PPSV23 (PNEUMOVAX) Unknown Completed [facility] TD, NOS Unknown Completed [facility] Influenza Virus Vaccine Unknown Completed [facility] Influenza Virus Vaccine Quad .5 mL IM 6+ MO (FLUZONE/FLULAVAL/F LUARIX) Unknown Completed [facility] SARS-COV-2 COVID-19 MODERNA 12+ YRS VACCINE Unknown Completed [facility] SARS-COV-2 COVID-19 MODERNA 12+ YRS VACCINE Unknown Completed [facility] Influenza Virus Vaccine Unknown Completed [facility] Influenza Virus Vaccine Quad IM, Preserv and ABX Free 6 MO-64 YRS (FLUCELVAX) Unknown Completed [facility] TDAP Unknown Completed [facility] MMR Unknown Completed [facility] Varicella (varivax)(chicken pox) Unknown Completed [facility] Influenza Virus Vaccine Unknown Completed [facility] HEPATITIS A Unknown Completed [facility] HEPATITIS A Unknown Completed [facility] Hep B, Adol or Pedi Dosage Unknown Completed [facility] Hep B, Adol or Pedi Dosage Unknown Completed [facility] TD, NOS Unknown Completed [facility] Hep B, Adol or Pedi Dosage Unknown Completed [facility] Influenza Virus Vaccine - Whole Unknown Completed [facility] Pneumococcal Polysaccharide, PPSV23 (PNEUMOVAX) Unknown Completed [facility] TD, NOS Unknown Completed [facility] Influenza Virus Vaccine Unknown Completed [facility] Influenza Virus Vaccine Quad .5 mL IM 6+ MO (FLUZONE/FLULAVAL/F LUARIX) Unknown Completed [facility] SARS-COV-2 COVID-19 MODERNA 12+ YRS VACCINE Unknown Completed [facility] SARS-COV-2 COVID-19 MODERNA 12+ YRS VACCINE Unknown Completed [facility] Influenza Virus Vaccine Unknown Completed [facility] Influenza Virus Vaccine Quad IM, Preserv and ABX Free 6 MO-64 YRS (FLUCELVAX) Unknown Completed [facility] TDAP Unknown Completed [facility] MMR Unknown Completed [facility] Varicella (varivax)(chicken pox) Unknown Completed [facility] Influenza Virus Vaccine Unknown Completed [facility] HEPATITIS A Unknown Completed [facility] HEPATITIS A Unknown Completed [facility] Hep B, Adol or Pedi Dosage Unknown Completed [facility] Hep B, Adol or Pedi Dosage Unknown Completed [facility] TD, NOS Unknown Completed [facility] Hep B, Adol or Pedi Dosage Unknown Completed [facility] Influenza Virus Vaccine - Whole Unknown Completed [facility] Pneumococcal Polysaccharide, PPSV23 (PNEUMOVAX) Unknown Completed [facility] TD, NOS Unknown Completed [facility] Influenza Virus Vaccine Unknown Completed [facility] Influenza Virus Vaccine Quad .5 mL IM 6+ MO (FLUZONE/FLULAVAL/F LUARIX) Unknown Completed [facility] SARS-COV-2 COVID-19 MODERNA 12+ YRS VACCINE Unknown Completed [facility] SARS-COV-2 COVID-19 MODERNA 12+ YRS VACCINE Unknown Completed [facility] Influenza Virus Vaccine Unknown Completed [facility] Influenza Virus Vaccine Quad IM, Preserv and ABX Free 6 MO-64 YRS (FLUCELVAX) Unknown Completed [facility] TDAP Unknown Completed [facility] MMR Unknown Completed [facility] Varicella (varivax)(chicken pox) Unknown Completed [facility] Influenza Virus Vaccine Unknown Completed [facility] HEPATITIS A Unknown Completed [facility] HEPATITIS A Unknown Completed [facility] Hep B, Adol or Pedi Dosage Unknown Completed [facility] Hep B, Adol or Pedi Dosage Unknown Completed [facility] TD, NOS Unknown Completed [facility] Hep B, Adol or Pedi Dosage Unknown Completed [facility] Influenza Virus Vaccine - Whole Unknown Completed [facility] Pneumococcal Polysaccharide, PPSV23 (PNEUMOVAX) Unknown Completed [facility] TD, NOS Unknown Completed [facility] Influenza Virus Vaccine Unknown Completed [facility] Influenza Virus Vaccine Quad .5 mL IM 6+ MO (FLUZONE/FLULAVAL/F LUARIX) Unknown Completed [facility] SARS-COV-2 COVID-19 MODERNA 12+ YRS VACCINE Unknown Completed [facility] SARS-COV-2 COVID-19 MODERNA 12+ YRS VACCINE Unknown Completed [facility] Influenza Virus Vaccine Unknown Completed [facility] Influenza Virus Vaccine Quad IM, Preserv and ABX Free 6 MO-64 YRS (FLUCELVAX) Unknown Completed [facility] TDAP Unknown Completed [facility] MMR Unknown Completed [facility] Varicella (varivax)(chicken pox) Unknown Completed [facility] Influenza Virus Vaccine Unknown Completed [facility] HEPATITIS A Unknown Completed [facility] HEPATITIS A Unknown Completed [facility] Hep B, Adol or Pedi Dosage Unknown Completed [facility] Hep B, Adol or Pedi Dosage Unknown Completed [facility] TD, NOS Unknown Completed [facility] Hep B, Adol or Pedi Dosage Unknown Completed [facility] Influenza Virus Vaccine - Whole Unknown Completed [facility] Pneumococcal Polysaccharide, PPSV23 (PNEUMOVAX) Unknown Completed [facility] TD, NOS Unknown Completed [facility] Influenza Virus Vaccine Unknown Completed [facility] Influenza Virus Vaccine Quad .5 mL IM 6+ MO (FLUZONE/FLULAVAL/F LUARIX) Unknown Completed [facility] SARS-COV-2 COVID-19 MODERNA 12+ YRS VACCINE Unknown Completed [facility] SARS-COV-2 COVID-19 MODERNA 12+ YRS VACCINE Unknown Completed [facility] Influenza Virus Vaccine Unknown Completed [facility] Influenza Virus Vaccine Quad IM, Preserv and ABX Free 6 MO-64 YRS (FLUCELVAX) Unknown Completed [facility] TDAP Unknown Completed [facility] MMR Unknown Completed [facility] Varicella (varivax)(chicken pox) Unknown Completed [facility] Influenza Virus Vaccine Unknown Completed [facility] HEPATITIS A Unknown Completed [facility] HEPATITIS A Unknown Completed [facility] Hep B, Adol or Pedi Dosage Unknown Completed [facility] Hep B, Adol or Pedi Dosage Unknown Completed [facility] TD, NOS Unknown Completed [facility] Hep B, Adol or Pedi Dosage Unknown Completed [facility] Influenza Virus Vaccine - Whole Unknown Completed [facility] Pneumococcal Polysaccharide, PPSV23 (PNEUMOVAX) Unknown Completed [facility] TD, NOS Unknown Completed [facility] Influenza Virus Vaccine Unknown Completed [facility] Influenza Virus Vaccine Quad .5 mL IM 6+ MO (FLUZONE/FLULAVAL/F LUARIX) Unknown Completed [facility] SARS-COV-2 COVID-19 MODERNA 12+ YRS VACCINE Unknown Completed [facility] SARS-COV-2 COVID-19 MODERNA 12+ YRS VACCINE Unknown Completed [facility] Influenza Virus Vaccine Unknown Completed [facility] Influenza Virus Vaccine Quad IM, Preserv and ABX Free 6 MO-64 YRS (FLUCELVAX) Unknown Completed [facility] TDAP Unknown Completed [facility] MMR Unknown Completed [facility] Varicella (varivax)(chicken pox) Unknown Completed [facility] Influenza Virus Vaccine Unknown Completed [facility] HEPATITIS A Unknown Completed [facility] HEPATITIS A Unknown Completed [facility] Hep B, Adol or Pedi Dosage Unknown Completed [facility] Hep B, Adol or Pedi Dosage Unknown Completed [facility] TD, NOS Unknown Completed [facility] Hep B, Adol or Pedi Dosage Unknown Completed [facility] Influenza Virus Vaccine - Whole Unknown Completed [facility] Pneumococcal Polysaccharide, PPSV23 (PNEUMOVAX) Unknown Completed [facility] TD, NOS Unknown Completed [facility] Influenza Virus Vaccine Unknown Completed [facility] Influenza Virus Vaccine Quad .5 mL IM 6+ MO (FLUZONE/FLULAVAL/F LUARIX) Unknown Completed [facility] SARS-COV-2 COVID-19 MODERNA 12+ YRS VACCINE Unknown Completed [facility] SARS-COV-2 COVID-19 MODERNA 12+ YRS VACCINE Unknown Completed [facility] Influenza Virus Vaccine Unknown Completed [facility] Influenza Virus Vaccine Quad IM, Preserv and ABX Free 6 MO-64 YRS (FLUCELVAX) Unknown Completed [facility] TDAP Unknown Completed [facility] MMR Unknown Completed [facility] Varicella (varivax)(chicken pox) Unknown Completed [facility] Influenza Virus Vaccine Unknown Completed [facility] HEPATITIS A Unknown [facility] HEPATITIS A Unknown Com[facility] Hep B, Adol or Pedi Dosage Unknown Completed [facility] Hep B, Adol or Pedi Dosage Unknown Completed [facility] TD, NOS Unknown Completed [facility] Hep B, Adol or Pedi Dosage Unknown Completed [facility] Influenza Virus Vaccine - Whole Unknown Completed [facility] Pneumococcal Polysaccharide, PPSV23 (PNEUMOVAX) Unknown Completed [facility] TD, NOS Unknown Completed [facility] Influenza Virus Vaccine Unknown Completed [facility] Influenza Virus Vaccine Quad .5 mL IM 6+ MO (FLUZONE/FLULAVAL/F LUARIX) Unknown Completed [facility] SARS-COV-2 COVID-19 MODERNA 12+ YRS VACCINE Unknown Completed [facility] SARS-COV-2 COVID-19 MODERNA 12+ YRS VACCINE Unknown Completed [facility] Influenza Virus Vaccine Unknown Completed [facility] Influenza Virus Vaccine Quad IM, Preserv and ABX Free 6 MO-64 YRS (FLUCELVAX) Unknown Completed [facility] TDAP Unknown Completed [facility] MMR Unknown Completed [facility] Varicella (varivax)(chicken pox) Unknown Completed [facility] Influenza Virus Vaccine Unknown Completed [facility] HEPATITIS A Unknown Completed [facility] HEPATITIS A Unknown Completed [facility] Hep B, Adol or Pedi Dosage Unknown Completed [facility] Hep B, Adol or Pedi Dosage Unknown Completed [facility] TD, NOS Unknown Completed [facility] Hep B, Adol or Pedi Dosage Unknown Completed [facility] Influenza Virus Vaccine - Whole Unknown Completed [facility] Pneumococcal Polysaccharide, PPSV23 (PNEUMOVAX) Unknown Completed [facility] TD, NOS Unknown Completed [facility] Influenza Virus Vaccine Unknown Completed [facility] Influenza Virus Vaccine Quad .5 mL IM 6+ MO (FLUZONE/FLULAVAL/F LUARIX) Unknown Completed [facility] SARS-COV-2 COVID-19 MODERNA 12+ YRS VACCINE Unknown Completed [facility] SARS-COV-2 COVID-19 MODERNA 12+ YRS VACCINE Unknown Completed [facility] Influenza Virus Vaccine Unknown Completed [facility] Influenza Virus Vaccine Quad IM, Preserv and ABX Free 6 MO-64 YRS (FLUCELVAX) Unknown Completed [facility] TDAP Unknown Completed [facility] MMR Unknown Completed [facility] Varicella (varivax)(chicken pox) Unknown Completed [facility] Influenza Virus Vaccine Unknown Completed [facility] HEPATITIS A Unknown Completed [facility] HEPATITIS A Unknown Completed [facility] Hep B, Adol or Pedi Dosage Unknown Completed [facility] Hep B, Adol or Pedi Dosage Unknown Completed [facility] TD, NOS Unknown Completed [facility] Hep B, Adol or Pedi Dosage Unknown Completed [facility] Influenza Virus Vaccine - Whole Unknown Completed [facility] Pneumococcal Polysaccharide, PPSV23 (PNEUMOVAX) Unknown Completed [facility] TD, NOS Unknown Completed [facility] Influenza Virus Vaccine Unknown Completed [facility] Influenza Virus Vaccine Quad .5 mL IM 6+ MO (FLUZONE/FLULAVAL/F LUARIX) Unknown Completed [facility] SARS-COV-2 COVID-19 MODERNA 12+ YRS VACCINE Unknown Completed [facility] SARS-COV-2 COVID-19 MODERNA 12+ YRS VACCINE Unknown Completed [facility] Influenza Virus Vaccine Unknown Completed [facility] Influenza Virus Vaccine Quad IM, Preserv and ABX Free 6 MO-64 YRS (FLUCELVAX) Unknown Completed [facility] TDAP Unknown Completed [facility] MMR Unknown Completed [facility] Varicella (varivax)(chicken pox) Unknown Completed [facility] Influenza Virus Vaccine Unknown Completed [facility] HEPATITIS A Unknown Completed [facility] HEPATITIS A Unknown Completed [facility] Hep B, Adol or Pedi Dosage Unknown Completed [facility] Hep B, Adol or Pedi Dosage Unknown Completed [facility] TD, NOS Unknown Completed [facility] Hep B, Adol or Pedi Dosage Unknown Completed [facility] Influenza Virus Vaccine - Whole Unknown Completed [facility] Pneumococcal Polysaccharide, PPSV23 (PNEUMOVAX) Unknown Completed [facility] TD, NOS Unknown Completed [facility] Influenza Virus Vaccine Unknown Completed [facility] Influenza Virus Vaccine Quad .5 mL IM 6+ MO (FLUZONE/FLULAVAL/F LUARIX) Unknown Completed [facility] SARS-COV-2 COVID-19 MODERNA 12+ YRS VACCINE Unknown Completed [facility] SARS-COV-2 COVID-19 MODERNA 12+ YRS VACCINE Unknown Completed [facility] Influenza Virus Vaccine Unknown Completed [facility] Influenza Virus Vaccine Quad IM, Preserv and ABX Free 6 MO-64 YRS (FLUCELVAX) Unknown Completed [facility] TDAP Unknown Completed [facility] MMR Unknown Completed [facility] Varicella (varivax)(chicken pox) Unknown Completed [facility] Influenza Virus Vaccine Unknown Completed [facility] HEPATITIS A Unknown Completed [facility] HEPATITIS A Unknown Completed [facility] Hep B, Adol or Pedi Dosage Unknown Completed [facility] Hep B, Adol or Pedi Dosage Unknown Completed [facility] TD, NOS Unknown Completed [facility] Hep B, Adol or Pedi Dosage Unknown Completed [facility] Influenza Virus Vaccine - Whole Unknown Completed [facility] Pneumococcal Polysaccharide, PPSV23 (PNEUMOVAX) Unknown Completed [facility] TD, NOS Unknown Completed [facility] Influenza Virus Vaccine Unknown Completed [facility] Influenza Virus Vaccine Quad .5 mL IM 6+ MO (FLUZONE/FLULAVAL/F LUARIX) Unknown Completed [facility] SARS-COV-2 COVID-19 MODERNA 12+ YRS VACCINE Unknown Completed [facility] SARS-COV-2 COVID-19 MODERNA 12+ YRS VACCINE Unknown Completed [facility] Influenza Virus Vaccine Unknown Completed [facility] Influenza Virus Vaccine Quad IM, Preserv and ABX Free 6 MO-64 YRS (FLUCELVAX) Unknown Completed [facility] TDAP Unknown Completed [facility] MMR Unknown Completed [facility] Varicella (varivax)(chicken pox) Unknown Completed [facility] Influenza Virus Vaccine Unknown Completed [facility] HEPATITIS A Unknown Completed [facility] HEPATITIS A Unknown Completed [facility] Hep B, Adol or Pedi Dosage Unknown Completed [facility] Hep B, Adol or Pedi Dosage Unknown Completed [facility] TD, NOS Unknown Completed [facility] Hep B, Adol or Pedi Dosage Unknown Completed [facility] Influenza Virus Vaccine - Whole Unknown Completed [facility] Pneumococcal Polysaccharide, PPSV23 (PNEUMOVAX) Unknown Completed [facility] TD, NOS Unknown Completed [facility] Influenza Virus Vaccine Unknown Completed [facility] Influenza Virus Vaccine Quad .5 mL IM 6+ MO (FLUZONE/FLULAVAL/F LUARIX) Unknown Completed [facility] SARS-COV-2 COVID-19 MODERNA 12+ YRS VACCINE Unknown Completed [facility] SARS-COV-2 COVID-19 MODERNA 12+ YRS VACCINE Unknown Completed [facility] Influenza Virus Vaccine Unknown Completed [facility] Influenza Virus Vaccine Quad IM, Preserv and ABX Free 6 MO-64 YRS (FLUCELVAX) Unknown Completed [facility] TDAP Unknown Completed [facility] MMR Unknown Completed [facility] Varicella (varivax)(chicken pox) Unknown Completed [facility] Influenza Virus Vaccine Unknown Completed [facility] HEPATITIS A Unknown Completed [facility] HEPATITIS A Unknown Completed [facility] Hep B, Adol or Pedi Dosage Unknown Completed [facility] Hep B, Adol or Pedi Dosage Unknown Completed [facility] TD, NOS Unknown Completed [facility] Hep B, Adol or Pedi Dosage Unknown Completed [facility] Influenza Virus Vaccine - Whole Unknown Completed [facility] Pneumococcal Polysaccharide, PPSV23 (PNEUMOVAX) Unknown [facility] TD, NOS Unknown Completed [facility] Influenza Virus Vaccine Unknown Completed [facility] Influenza Virus Vaccine Quad .5 mL IM 6+ MO (FLUZONE/FLULAVAL/F LUARIX) Unknown Completed [facility] SARS-COV-2 COVID-19 MODERNA 12+ YRS VACCINE Unknown Completed [facility] SARS-COV-2 COVID-19 MODERNA 12+ YRS VACCINE Unknown Completed [facility] Influenza Virus Vaccine Unknown Completed [facility] Influenza Virus Vaccine Quad IM, Preserv and ABX Free 6 MO-64 YRS (FLUCELVAX) Unknown Completed [facility] TDAP Unknown Completed [facility] MMR Unknown Completed [facility] Varicella (varivax)(chicken pox) Unknown Completed [facility] Influenza Virus Vaccine Unknown Completed [facility] HEPATITIS A Unknown Completed [facility] HEPATITIS A Unknown Completed [facility] Hep B, Adol or Pedi Dosage Unknown Completed [facility] Hep B, Adol or Pedi Dosage Unknown Completed [facility] TD, NOS Unknown Completed [facility] Hep B, Adol or Pedi Dosage Unknown Completed [facility] Influenza Virus Vaccine - Whole Unknown Completed [facility] Pneumococcal Polysaccharide, PPSV23 (PNEUMOVAX) Unknown Completed [facility] TD, NOS Unknown Completed [facility] Influenza Virus Vaccine Unknown Completed [facility] TDAP Unknown Completed [facility] MMR Unknown Completed [facility] Varicella (varivax)(chicken pox) Unknown Completed [facility] Influenza Virus Vaccine Unknown Completed [facility] HEPATITIS A Unknown Completed [facility] HEPATITIS A Unknown Completed [facility] Hep B, Adol or Pedi Dosage Unknown Completed [facility] Hep B, Adol or Pedi Dosage Unknown Completed [facility] TD, NOS Unknown Completed [facility] Hep B, Adol or Pedi Dosage Unknown Completed [facility] Influenza Virus Vaccine - Whole Unknown Completed [facility] Pneumococcal Polysaccharide, PPSV23 (PNEUMOVAX) Unknown Completed [facility] TD, NOS Unknown Completed [facility] Influenza Virus Vaccine Unknown Completed [facility] TDAP Unknown Completed [facility] MMR Unknown Completed [facility] Varicella (varivax)(chicken pox) Unknown Completed [facility] Influenza Virus Vaccine Unknown Completed [facility] HEPATITIS A Unknown Completed [facility] HEPATITIS A Unknown Completed [facility] Hep B, Adol or Pedi Dosage Unknown Completed [facility] Hep B, Adol or Pedi Dosage Unknown Completed [facility] TD, NOS Unknown Completed [facility] Hep B, Adol or Pedi Dosage Unknown Completed [facility] Influenza Virus Vaccine - Whole Unknown Completed [facility] Pneumococcal Polysaccharide, PPSV23 (PNEUMOVAX) Unknown Completed [facility] TD, NOS Unknown Completed [facility] Influenza Virus Vaccine Unknown Completed [facility] Influenza Virus Vaccine Quad .5 mL IM 6+ MO (FLUZONE/FLULAVAL/F LUARIX) Unknown Completed [facility] SARS-COV-2 COVID-19 MODERNA 12+ YRS VACCINE Unknown Completed [facility] SARS-COV-2 COVID-19 MODER[place] 12+ YRS VACCINE Unknown Completed [facility] Influenza Virus Vaccine Unknown Completed [facility] Influenza Virus Vaccine Quad IM, Preserv and ABX Free 6 MO-64 YRS (FLUCELVAX) Unknown Completed [facility] TDAP Unknown Completed [facility] MMR Unknown Completed [facility] Varicella (varivax)(chicken pox) Unknown Completed [facility] Influenza Virus Vaccine Unknown Completed [facility] HEPATITIS A Unknown Completed [facility] HEPATITIS A Unknown Completed [facility] Hep B, Adol or Pedi Dosage Unknown Completed [facility] Hep B, Adol or Pedi Dosage Unknown Completed [facility] TD, NOS Unknown Completed [facility] Hep B, Adol or Pedi Dosage Unknown Completed [facility] Influenza Virus Vaccine - Whole Unknown Completed [facility] Pneumococcal Polysaccharide, PPSV23 (PNEUMOVAX) Unknown Completed [facility] TD, NOS Unknown Completed [facility] Influenza Virus Vaccine Unknown Completed [facility] Influenza Virus Vaccine Quad .5 mL IM 6+ MO (FLUZONE/FLULAVAL/F LUARIX) Unknown Completed [facility] SARS-COV-2 COVID-19 MODERNA 12+ YRS VACCINE Unknown Completed [facility] SARS-COV-2 COVID-19 MODER[place] 12+ YRS VACCINE Unknown Completed [facility] Influenza Virus Vaccine Unknown Completed [facility] Influenza Virus Vaccine Quad IM, Preserv and ABX Free 6 MO-64 YRS (FLUCELVAX) Unknown Completed [facility] TDAP Unknown Completed [facility] MMR Unknown Completed [facility] Varicella (varivax)(chicken pox) Unknown Completed [facility] Influenza Virus Vaccine Unknown Completed [facility] HEPATITIS A Unknown Completed [facility] HEPATITIS A Unknown Completed [facility] Hep B, Adol or Pedi Dosage Unknown Completed [facility] Hep B, Adol or Pedi Dosage Unknown Completed [facility] TD, NOS Unknown Completed [facility] Hep B, Adol or Pedi Dosage Unknown Completed [facility] Influenza Virus Vaccine - Whole Unknown Completed [facility] Pneumococcal Polysaccharide, PPSV23 (PNEUMOVAX) Unknown Completed [facility] TD, NOS Unknown Completed [facility] Influenza Virus Vaccine Unknown Completed [facility] Influenza Virus Vaccine Quad .5 mL IM 6+ MO (FLUZONE/FLULAVAL/F LUARIX) Unknown Completed [facility] SARS-COV-2 COVID-19 MODERNA 12+ YRS VACCINE Unknown Completed [facility] SARS-COV-2 COVID-19 MODER[place] 12+ YRS VACCINE Unknown Completed [facility] Influenza Virus Vaccine Unknown Completed [facility] Influenza Virus Vaccine Quad IM, Preserv and ABX Free 6 MO-64 YRS (FLUCELVAX) Unknown Completed [facility] TDAP Unknown Completed [facility] MMR Unknown Completed [facility] Varicella (varivax)(chicken pox) Unknown Completed [facility] Influenza Virus Vaccine Unknown Completed [facility] HEPATITIS A Unknown Completed [facility] HEPATITIS A Unknown Completed [facility] Hep B, Adol or Pedi Dosage Unknown Completed [facility] Hep B, Adol or Pedi Dosage Unknown Completed [facility] TD, NOS Unknown Completed [facility] Hep B, Adol or Pedi Dosage Unknown Completed [facility] Influenza Virus Vaccine - Whole Unknown Completed [facility] Pneumococcal Polysaccharide, PPSV23 (PNEUMOVAX) Unknown Completed [facility] TD, NOS Unknown Completed [facility] Influenza Virus Vaccine Unknown Completed [facility] Influenza Virus Vaccine Quad .5 mL IM 6+ MO (FLUZONE/FLULAVAL/F LUARIX) Unknown Completed [facility] SARS-COV-2 COVID-19 MODERNA 12+ YRS VACCINE Unknown Completed [facility] SARS-COV-2 COVID-19 MODER[place] 12+ YRS VACCINE Unknown Completed [facility] Influenza Virus Vaccine Unknown Completed [facility] Influenza Virus Vaccine Quad IM, Preserv and ABX Free 6 MO-64 YRS (FLUCELVAX) Unknown Completed [facility] TDAP Unknown Completed [facility] MMR Unknown Completed [facility] Varicella (varivax)(chicken pox) Unknown Completed [facility] Influenza Virus Vaccine Unknown Completed [facility] HEPATITIS A Unknown Completed [facility] HEPATITIS A Unknown Completed [facility] Hep B, Adol or Pedi Dosage Unknown Completed [facility] Hep B, Adol or Pedi Dosage Unknown Completed [facility] TD, NOS Unknown Completed [facility] Hep B, Adol or Pedi Dosage Unknown Completed [facility] Influenza Virus Vaccine - Whole Unknown Completed [facility] Pneumococcal Polysaccharide, PPSV23 (PNEUMOVAX) Unknown Completed [facility] TD, NOS Unknown Completed [facility] Influenza Virus Vaccine Unknown Completed [facility] Influenza Virus Vaccine Quad .5 mL IM 6+ MO (FLUZONE/FLULAVAL/F LUARIX) Unknown Completed [facility] SARS-COV-2 COVID-19 MODERNA 12+ YRS VACCINE Unknown Completed [facility] SARS-COV-2 COVID-19 MODER[place] 12+ YRS VACCINE Unknown Completed [facility] Influenza Virus Vaccine Unknown Completed [facility] Influenza Virus Vaccine Quad IM, Preserv and ABX Free 6 MO-64 YRS (FLUCELVAX) Unknown Completed [facility] TDAP Unknown Completed [facility] MMR Unknown Completed [facility] Varicella (varivax)(chicken pox) Unknown Completed [facility] Influenza Virus Vaccine Unknown Completed [facility] HEPATITIS A Unknown Completed [facility] HEPATITIS A Unknown Completed [facility] Hep B, Adol or Pedi Dosage Unknown Completed [facility] Hep B, Adol or Pedi Dosage Unknown Completed [facility] TD, NOS Unknown Completed [facility] Hep B, Adol or Pedi Dosage Unknown Completed [facility] Influenza Virus Vaccine - Whole Unknown Completed [facility] Pneumococcal Polysaccharide, PPSV23 (PNEUMOVAX) Unknown Completed [facility] TD, NOS Unknown Completed [facility] Influenza Virus Vaccine Unknown Completed [facility] Influenza Virus Vaccine Quad .5 mL IM 6+ MO (FLUZONE/FLULAVAL/F LUARIX) Unknown Completed [facility] SARS-COV-2 COVID-19 MODERNA 12+ YRS VACCINE Unknown Completed [facility] SARS-COV-2 COVID-19 MODER[place] 12+ YRS VACCINE Unknown Completed [facility] Influenza Virus Vaccine Unknown Completed [facility] Influenza Virus Vaccine Quad IM, Preserv and ABX Free 6 MO-64 YRS (FLUCELVAX) Unknown Completed [facility] TDAP Unknown Completed [facility] MMR Unknown Completed [facility] Varicella (varivax)(chicken pox) Unknown Completed [facility] Influenza Virus Vaccine Unknown Completed [facility] HEPATITIS A Unknown Completed [facility] HEPATITIS A Unknown Completed [facility] Hep B, Adol or Pedi Dosage Unknown Completed [facility] Hep B, Adol or Pedi Dosage Unknown Completed [facility] TD, NOS Unknown Completed [facility] Hep B, Adol or Pedi Dosage Unknown Completed [facility] Influenza Virus Vaccine - Whole Unknown Completed [facility] Pneumococcal Polysaccharide, PPSV23 (PNEUMOVAX) Unknown Completed [facility] TD, NOS Unknown Completed [facility] Influenza Virus Vaccine Unknown Completed [facility] Influenza Virus Vaccine Quad .5 mL IM 6+ MO (FLUZONE/FLULAVAL/F LUARIX) Unknown Completed [facility] SARS-COV-2 COVID-19 MODERNA 12+ YRS VACCINE Unknown Completed [facility] SARS-COV-2 COVID-19 MODERNA 12+ YRS VACCINE Unknown Completed [facility] Influenza Virus Vaccine Unknown Completed [facility] TDAP Unknown Completed [facility] MMR Unknown Completed [facility] Varicella (varivax)(chicken pox) Unknown Completed [facility] Influenza Virus Vaccine Unknown Completed [facility] HEPATITIS A Unknown Completed [facility] HEPATITIS A Unknown Completed [facility] Hep B, Adol or Pedi Dosage Unknown Completed [facility] Hep B, Adol or Pedi Dosage Unknown Completed [facility] TD, NOS Unknown Completed [facility] Hep B, Adol or Pedi Dosage Unknown Completed [facility] Influenza Virus Vaccine - Whole Unknown Completed [facility] Pneumococcal Polysaccharide, PPSV23 (PNEUMOVAX) Unknown Completed [facility] TD, NOS Unknown Completed [facility] Influenza Virus Vaccine Unknown Completed [facility] Influenza Virus Vaccine Quad .5 mL IM 6+ MO (FLUZONE/FLULAVAL/F LUARIX) Unknown Completed [facility] SARS-COV-2 COVID-19 MODERNA 12+ YRS VACCINE Unknown Completed [facility] SARS-COV-2 COVID-19 MODERNA 12+ YRS VACCINE Unknown Completed [facility] Influenza Virus Vaccine Unknown Completed [facility] TDAP Unknown Completed [facility] MMR Unknown Completed [facility] Varicella (varivax)(chicken pox) Unknown Completed [facility] Influenza Virus Vaccine Unknown Completed [facility] HEPATITIS A Unknown Completed [facility] HEPATITIS A Unknown Completed [facility] Hep B, Adol or Pedi Dosage Unknown Completed [facility] Hep B, Adol or Pedi Dosage Unknown Completed [facility] TD, NOS Unknown Completed [facility] Hep B, Adol or Pedi Dosage Unknown Completed [facility] Influenza Virus Vaccine - Whole Unknown Completed [facility] Pneumococcal Polysaccharide, PPSV23 (PNEUMOVAX) Unknown Completed [facility] TD, NOS Unknown Completed [facility] Influenza Virus Vaccine Unknown Completed [facility] Influenza Virus Vaccine Quad .5 mL IM 6+ MO (FLUZONE/FLULAVAL/F LUARIX) Unknown Completed [facility] SARS-COV-2 COVID-19 MODERNA 12+ YRS VACCINE Unknown Completed [facility] SARS-COV-2 COVID-19 MODERNA 12+ YRS VACCINE Unknown Completed [facility] Influenza Virus Vaccine Unknown Completed [facility] TDAP Unknown Completed [facility] MMR Unknown Completed [facility] Varicella (varivax)(chicken pox) Unknown Completed [facility] Influenza Virus Vaccine Unknown Completed [facility] HEPATITIS A Unknown Completed [facility] HEPATITIS A Unknown Completed [facility] Hep B, Adol or Pedi Dosage Unknown Completed [facility] Hep B, Adol or Pedi Dosage Unknown Completed [facility] TD, NOS Unknown Completed [facility] Hep B, Adol or Pedi Dosage Unknown Completed [facility] Influenza Virus Vaccine - Whole Unknown Completed [facility] Pneumococcal Polysaccharide, PPSV23 (PNEUMOVAX) Unknown Completed [facility] TD, NOS Unknown Completed [facility] Influenza Virus Vaccine Unknown Completed [facility] Influenza Virus Vaccine Quad .5 mL IM 6+ MO (FLUZONE/FLULAVAL/F LUARIX) Unknown Completed [facility] SARS-COV-2 COVID-19 MODERNA 12+ YRS VACCINE Unknown Completed [facility] SARS-COV-2 COVID-19 MODERNA 12+ YRS VACCINE Unknown Completed [facility] Influenza Virus Vaccine Unknown Completed [facility] TDAP Unknown Completed [facility] MMR Unknown Completed [facility] Varicella (varivax)(chicken pox) Unknown Completed [facility] Influenza Virus Vaccine Unknown Completed [facility] HEPATITIS A Unknown Completed [facility] HEPATITIS A Unknown Completed [facility] Hep B, Adol or Pedi Dosage Unknown Completed [facility] Hep B, Adol or Pedi Dosage Unknown Completed [facility] TD, NOS Unknown Completed [facility] Hep B, Adol or Pedi Dosage Unknown Completed [facility] Influenza Virus Vaccine - Whole Unknown [facility] [facility] Pneumococcal Polysaccharide, PPSV23 (PNEUMOVAX) Unknown Completed [facility] TD, NOS Unknown Completed [facility] Influenza Virus Vaccine Unknown Completed [facility] Influenza Virus Vaccine Quad .5 mL IM 6+ MO (FLUZONE/FLULAVAL/F LUARIX) Unknown Completed [facility] SARS-COV-2 COVID-19 MODERNA 12+ YRS VACCINE Unknown Completed [facility] SARS-COV-2 COVID-19 MODERNA 12+ YRS VACCINE Unknown Completed [facility] Influenza Virus Vaccine Unknown Completed [facility] TDAP Unknown Completed [facility] MMR Unknown Completed [facility] Varicella (varivax)(chicken pox) Unknown Completed [facility] Influenza Virus Vaccine Unknown Completed [facility] HEPATITIS A Unknown Completed [facility] HEPATITIS A Unknown Completed [facility] Hep B, Adol or Pedi Dosage Unknown Completed [facility] Hep B, Adol or Pedi Dosage Unknown Completed [facility] TD, NOS Unknown Completed [facility] Hep B, Adol or Pedi Dosage Unknown Completed [facility] Influenza Virus Vaccine - Whole Unknown Completed [facility] Pneumococcal Polysaccharide, PPSV23 (PNEUMOVAX) Unknown Completed [facility] TD, NOS Unknown Completed [facility] Influenza Virus Vaccine Unknown Completed [facility] Influenza Virus Vaccine Quad .5 mL IM 6+ MO (FLUZONE/FLULAVAL/F LUARIX) Unknown Completed [facility] SARS-COV-2 COVID-19 MODERNA 12+ YRS VACCINE Unknown Completed [facility] SARS-COV-2 COVID-19 MODERNA 12+ YRS VACCINE Unknown Completed [facility] Influenza Virus Vaccine Unknown Completed [facility] TDAP Unknown Completed [facility] MMR Unknown Completed [facility] Varicella (varivax)(chicken pox) Unknown Completed [facility] Influenza Virus Vaccine Unknown Completed [facility] HEPATITIS A Unknown Completed [facility] HEPATITIS A Unknown Completed [facility] Hep B, Adol or Pedi Dosage Unknown Completed [facility] Hep B, Adol or Pedi Dosage Unknown Completed [facility] TD, NOS Unknown Completed [facility] Hep B, Adol or Pedi Dosage Unknown Completed [facility] Influenza Virus Vaccine - Whole Unknown Completed [facility] Pneumococcal Polysaccharide, PPSV23 (PNEUMOVAX) Unknown Completed [facility] TD, NOS Unknown Completed [facility] Influenza Virus Vaccine Unknown Completed [facility] Influenza Virus Vaccine Quad .5 mL IM 6+ MO (FLUZONE/FLULAVAL/F LUARIX) Unknown Completed [facility] SARS-COV-2 COVID-19 MODERNA 12+ YRS VACCINE Unknown Completed [facility] TDAP Unknown Completed [facility] MMR Unknown Completed [facility] Varicella (varivax)(chicken pox) Unknown Completed [facility] Influenza Virus Vaccine Unknown Completed [facility] HEPATITIS A Unknown Completed [facility] HEPATITIS A Unknown Completed [facility] Hep B, Adol or Pedi Dosage Unknown Completed [facility] Hep B, Adol or Pedi Dosage Unknown Completed [facility] TD, NOS Unknown Completed [facility] Hep B, Adol or Pedi Dosage Unknown Completed [facility] Influenza Virus Vaccine - Whole Unknown Completed [facility] Pneumococcal Polysaccharide, PPSV23 (PNEUMOVAX) Unknown Completed [facility] TD, NOS Unknown Completed [facility] Influenza Virus Vaccine Unknown Completed [facility] TDAP Unknown Completed [facility] MMR Unknown Completed [facility] Varicella (varivax)(chicken pox) Unknown Completed [facility] Influenza Virus Vaccine Unknown Completed [facility] HEPATITIS A Unknown Completed [facility] HEPATITIS A Unknown Completed [facility] Hep B, Adol or Pedi Dosage Unknown Completed [facility] Hep B, Adol or Pedi Dosage Unknown Completed [facility] TD, NOS Unknown Completed [facility] Hep B, Adol or Pedi Dosage Unknown Completed [facility] Influenza Virus Vaccine - Whole Unknown Completed [facility] Pneumococcal Polysaccharide, PPSV23 (PNEUMOVAX) Unknown Completed [facility] TD, NOS Unknown Completed [facility] Influenza Virus Vaccine Unknown Completed [facility] TDAP Unknown Completed [facility] MMR Unknown Completed [facility] Varicella (varivax)(chicken pox) Unknown Completed [facility] Influenza Virus Vaccine Unknown Completed [facility] HEPATITIS A Unknown Completed [facility] [place] [place] [facility], Adol or Pedi Dosage Unknown Completed [facility] Hep B, Adol or Pedi Dosage Unknown Completed [facility] TD, NOS Unknown Completed [facility] Hep B, Adol or Pedi Dosage Unknown Completed [facility] Influenza Virus Vaccine - Whole Unknown Completed [facility] Pneumococcal Polysaccharide, PPSV23 (PNEUMOVAX) Unknown Completed [facility] TD, NOS Unknown Completed [facility] Influenza Virus Vaccine Unknown Completed [facility] Influenza Virus Vaccine Quad .5 mL IM 6+ MO (FLUZONE/FLULAVAL/F LUARIX) Unknown Completed [facility] SARS-COV-2 COVID-19 MODERNA 12+ YRS VACCINE Unknown Completed [facility] SARS-COV-2 COVID-19 MODERNA 12+ YRS VACCINE Unknown Completed [facility] Influenza Virus Vaccine Unknown Completed [facility] Influenza Virus Vaccine Quad IM, Preserv and ABX Free 6 MO-64 YRS (FLUCELVAX) Unknown Completed [facility] TDAP Unknown Completed [facility] MMR Unknown Completed [facility] Varicella (varivax)(chicken pox) Unknown Completed [facility] Influenza Virus Vaccine Unknown Completed [facility] HEPATITIS A Unknown Completed [facility] HEPATITIS A Unknown Completed [facility] Hep B, Adol or Pedi Dosage Unknown Completed [facility] Hep B, Adol or Pedi Dosage Unknown Completed [facility] TD, NOS Unknown Completed [facility] Hep B, Adol or Pedi Dosage Unknown Completed [facility] Influenza Virus Vaccine - Whole Unknown Completed [facility] Pneumococcal Polysaccharide, PPSV23 (PNEUMOVAX) Unknown Completed [facility] TD, NOS Unknown Completed [facility] Influenza Virus Vaccine Unknown Completed [facility] Influenza Virus Vaccine Quad .5 mL IM 6+ MO (FLUZONE/FLULAVAL/F LUARIX) Unknown Completed [facility] SARS-COV-2 COVID-19 MODERNA 12+ YRS VACCINE Unknown Completed [facility] SARS-COV-2 COVID-19 MODERNA 12+ YRS VACCINE Unknown Completed [facility] Influenza Virus Vaccine Unknown Completed [facility] Influenza Virus Vaccine Quad IM, Preserv and ABX Free 6 MO-64 YRS (FLUCELVAX) Unknown Completed [facility] TDAP Unknown Completed [facility] MMR Unknown Completed [facility] Varicella (varivax)(chicken pox) Unknown Completed [facility] Influenza Virus Vaccine Unknown Completed [facility] HEPATITIS A Unknown Completed [facility] HEPATITIS A Unknown Completed [facility] Hep B, Adol or Pedi Dosage Unknown Completed [facility] Hep B, Adol or Pedi Dosage Unknown Completed [facility] TD, NOS Unknown Completed [facility] Hep B, Adol or Pedi Dosage Unknown Completed [facility] Influenza Virus Vaccine - Whole Unknown Completed [facility] Pneumococcal Polysaccharide, PPSV23 (PNEUMOVAX) Unknown Completed [facility] TD, NOS Unknown Completed [facility] Influenza Virus Vaccine Unknown Completed [facility] Influenza Virus Vaccine Quad .5 mL IM 6+ MO (FLUZONE/FLULAVAL/F LUARIX) Unknown Completed [facility] SARS-COV-2 COVID-19 MODERNA 12+ YRS VACCINE Unknown Completed [facility] SARS-COV-2 COVID-19 MODERNA 12+ YRS VACCINE Unknown Completed [facility] Influenza Virus Vaccine Unknown Completed [facility] Influenza Virus Vaccine Quad IM, Preserv and ABX Free 6 MO-64 YRS (FLUCELVAX) Unknown Completed [facility] TDAP Unknown Completed [facility] MMR Unknown Completed [facility] Varicella (varivax)(chicken pox) Unknown Completed [facility] Influenza Virus Vaccine Unknown Completed [facility] HEPATITIS A Unknown Completed [facility] HEPATITIS A Unknown Completed [facility] Hep B, Adol or Pedi Dosage Unknown Completed [facility] Hep B, Adol or Pedi Dosage Unknown Completed [facility] TD, NOS Unknown Completed [facility] Hep B, Adol or Pedi Dosage Unknown Completed [facility] Influenza Virus Vaccine - Whole Unknown Completed [facility] Pneumococcal Polysaccharide, PPSV23 (PNEUMOVAX) Unknown Completed [facility] TD, NOS Unknown Completed [facility] Influenza Virus Vaccine Unknown Completed [facility] Influenza Virus Vaccine Quad .5 mL IM 6+ MO (FLUZONE/FLULAVAL/F LUARIX) Unknown Completed [facility] SARS-COV-2 COVID-19 MODERNA 12+ YRS VACCINE Unknown Completed [facility] SARS-COV-2 COVID-19 MODERNA 12+ YRS VACCINE Unknown Completed [facility] Influenza Virus Vaccine Unknown Completed [facility] Influenza Virus Vaccine Quad IM, Preserv and ABX Free 6 MO-64 YRS (FLUCELVAX) Unknown Completed [facility] TDAP Unknown Completed [facility] MMR Unknown Completed [facility] Varicella (varivax)(chicken pox) Unknown Completed [facility] Influenza Virus Vaccine Unknown Completed [facility] HEPATITIS A Unknown Completed [facility] HEPATITIS A Unknown Completed [facility] Hep B, Adol or Pedi Dosage Unknown Completed [facility] Hep B, Adol or Pedi Dosage Unknown Completed [facility] TD, NOS Unknown Completed [facility] Hep B, Adol or Pedi Dosage Unknown Completed [facility] Influenza Virus Vaccine - Whole Unknown Completed [facility] Pneumococcal Polysaccharide, PPSV23 (PNEUMOVAX) Unknown Completed [facility] TD, NOS Unknown Completed [facility] Influenza Virus Vaccine Unknown Completed [facility] Influenza Virus Vaccine Quad .5 mL IM 6+ MO (FLUZONE/FLULAVAL/F LUARIX) Unknown Completed [facility] SARS-COV-2 COVID-19 MODERNA 12+ YRS VACCINE Unknown Completed [facility] SARS-COV-2 COVID-19 MODERNA 12+ YRS VACCINE Unknown Completed [facility] Influenza Virus Vaccine Unknown Completed [facility] Influenza Virus Vaccine Quad IM, Preserv and ABX Free 6 MO-64 YRS (FLUCELVAX) Unknown Completed [facility] TDAP Unknown Completed [facility] MMR Unknown Completed [facility] Varicella (varivax)(chicken pox) Unknown Completed [facility] Influenza Virus Vaccine Unknown Completed [facility] HEPATITIS A Unknown Completed [facility] HEPATITIS A Unknown Completed [facility] Hep B, Adol or Pedi Dosage Unknown Completed [facility] Hep B, Adol or Pedi Dosage Unknown Completed [facility] TD, NOS Unknown Completed [facility] Hep B, Adol or Pedi Dosage Unknown Completed [facility] Influenza Virus Vaccine - Whole Unknown Completed [facility] Pneumococcal Polysaccharide, PPSV23 (PNEUMOVAX) Unknown Completed [facility] TD, NOS Unknown Completed [facility] Influenza Virus Vaccine Unknown Completed [facility] Influenza Virus Vaccine Quad .5 mL IM 6+ MO (FLUZONE/FLULAVAL/F LUARIX) Unknown Completed [facility] SARS-COV-2 COVID-19 MODERNA 12+ YRS VACCINE Unknown Completed [facility] SARS-COV-2 COVID-19 MODERNA 12+ YRS VACCINE Unknown Completed [facility] Influenza Virus Vaccine Unknown Completed [facility] Influenza Virus Vaccine Quad IM, Preserv and ABX Free 6 MO-64 YRS (FLUCELVAX) Unknown Completed [facility] TDAP Unknown Completed [facility] MMR Unknown Completed [facility] Varicella (varivax)(chicken pox) Unknown Completed [facility] Influenza Virus Vaccine Unknown Completed [facility] HEPATITIS A Unknown Completed [facility] HEPATITIS A Unknown Completed [facility] Vital Signs Vital Name Observation Time Observation Value Comments S ource Systolic blood pressure 2024-05-31 16:26:00 118 mm[Hg] [facility] Diastolic blood pressure 2024-05-31 16:26:00 81 mm[Hg] [facility] Heart rate 2024-05-31 16:26:00 93 /min [facility] Body temperature 2024-05-31 16:26:00 35.89 Karlie [facility] Body weight 2024-05-31 16:26:00 64.864 kg [facility] BMI 2024-05-31 16:26:00 26.16 kg/m2 [facility] Oxygen saturation in Arterial blood by Pulse oximetry 2024-05-31 16:26:00 96 /min [facility] Systolic blood pressure 2024-03-21 23:33:00 157 mm[Hg] pt upset & states she is in a lot of pain [facility] Diastolic blood pressure 2024-03-21 23:33:00 109 mm[Hg] pt upset & states she is in a lot of pain [facility] Heart rate 2024-03-21 23:32:00 103 /min [facility] Body temperature 2024-03-21 23:32:00 36.72 Karlie [facility] Respiratory rate 2024-03-21 23:32:00 18 /min [facility] Body weight 2024-03-21 23:32:00 66.089 kg [facility] BMI 2024-03-21 23:32:00 26.65 kg/m2 [facility] Oxygen saturation in Arterial blood by Pulse oximetry 2024-03-21 23:32:00 99 /min [facility] Systolic blood pressure 2024-01-17 20:33:00 134 mm[Hg] [facility] Diastolic blood pressure 2024-01-17 20:33:00 94 mm[Hg] [facility] Heart rate 2024-01-17 20:29:00 98 /min [facility] Body temperature 2024-01-17 20:29:00 36.83 Karlie [facility] Respiratory rate 2024-01-17 20:29:00 18 /min [facility] Body weight 2024-01-17 20:29:00 65.318 kg [facility] BMI 2024-01-17 20:29:00 26.34 kg/m2 [facility] Oxygen saturation in Arterial blood by Pulse oximetry 2024-01-17 20:29:00 99 /min [facility] Systolic blood pressure 2024-01-15 17:12:00 132 mm[Hg] [facility] Diastolic blood pressure 2024-01-15 17:12:00 86 mm[Hg] [facility] Heart rate 2024-01-15 17:12:00 98 /min [facility] Body temperature 2024-01-15 17:12:00 36.17 Karlie [facility] Body weight 2024-01-15 17:12:00 64.864 kg [facility] BMI 2024-01-15 17:12:00 26.16 kg/m2 [facility] Oxygen saturation in Arterial blood by Pulse oximetry 2024-01-15 17:12:00 100 /min [facility] Systolic blood pressure 2023-11-28 17:09:00 124 mm[Hg] [facility] Diastolic blood pressure 2023-11-28 17:09:00 91 mm[Hg] [facility] Heart rate 2023-11-28 16:36:00 108 /min [facility] Body temperature 2023-11-28 16:36:00 36.94 Karlie [facility] Respiratory rate 2023-11-28 16:36:00 18 /min [facility] Body weight 2023-11-28 16:36:00 63.776 kg [facility] BMI 2023-11-28 16:36:00 25.72 kg/m2 [facility] Systolic blood pressure 2023-10-06 19:08:00 121 mm[Hg] [facility] Diastolic blood pressure 2023-10-06 19:08:00 81 mm[Hg] [facility] Heart rate 2023-10-06 19:08:00 80 /min [facility] Respiratory rate 2023-10-06 19:08:00 18 /min [facility] Body height 2023-10-06 19:08:00 157.5 cm [facility] Body weight 2023-10-06 19:08:00 65.182 kg [facility] BMI 2023-10-06 19:08:00 26.28 kg/m2 [facility] Systolic blood pressure 2023-04-28 20:15:00 111 mm[Hg] [facility] Diastolic blood pressure 2023-04-28 20:15:00 73 mm[Hg] [facility] Heart rate 2023-04-28 20:15:00 86 /min [facility] Body height 2023-04-28 20:15:00 157.5 cm [facility] Body weight 2023-04-28 20:15:00 64.411 kg [facility] BMI 2023-04-28 20:15:00 25.97 kg/m2 [facility] Oxygen saturation in Arterial blood by Pulse oximetry 2023-04-28 20:15:00 100 /min [facility] Systolic blood pressure 2023-03-24 22:15:00 123 mm[Hg] [facility] Diastolic blood pressure 2023-03-24 22:15:00 86 mm[Hg] [facility] Heart rate 2023-03-24 22:15:00 92 /min [facility] Body temperature 2023-03-24 22:15:00 36.89 Karlie [facility] Respiratory rate 2023-03-24 22:15:00 18 /min [facility] Body height 2023-03-24 22:15:00 162.6 cm [facility] Body weight 2023-03-24 22:15:00 64.864 kg [facility] BMI 2023-03-24 22:15:00 24.55 kg/m2 [facility] Oxygen saturation in Arterial blood by Pulse oximetry 2023-03-24 22:15:00 99 /min [facility] Systolic blood pressure 2022-12-19 16:43:00 110 mm[Hg] [facility] Diastolic blood pressure 2022-12-19 16:43:00 75 mm[Hg] [facility] Heart rate 2022-12-19 16:43:00 79 /min [facility] Body temperature 2022-12-19 16:43:00 36.39 Karlie [facility] Respiratory rate 2022-12-19 16:43:00 18 /min [facility] Body height 2022-12-19 16:43:00 157.5 cm [facility] Body weight 2022-12-19 16:43:00 65.998 kg [facility] BMI 2022-12-19 16:43:00 26.61 kg/m2 [facility] Oxygen saturation in Arterial blood by Pulse oximetry 2022-12-19 16:43:00 100 /min [facility] Systolic blood pressure 2022-11-23 17:07:00 123 mm[Hg] [facility] Diastolic blood pressure 2022-11-23 17:07:00 83 mm[Hg] [facility] Heart rate 2022-11-23 17:07:00 83 /min [facility] Respiratory rate 2022-11-23 17:07:00 18 /min [facility] Body height 2022-11-23 17:07:00 157.5 cm [facility] Body weight 2022-11-23 17:07:00 64.819 kg [facility] BMI 2022-11-23 17:07:00 26.14 kg/m2 [facility] Oxygen saturation in Arterial blood by Pulse oximetry 2022-11-23 17:07:00 97 /min [facility] Systolic blood pressure 2022-09-20 22:12:00 139 mm[Hg] [facility] Diastolic blood pressure 2022-09-20 22:12:00 92 mm[Hg] [facility] Heart rate 2022-09-20 22:12:00 87 /min [facility] Body temperature 2022-09-20 22:12:00 36.83 Karlie [facility] Body height 2022-09-20 22:12:00 154.9 cm [facility] Body weight 2022-09-20 22:12:00 70.398 kg [facility] BMI 2022-09-20 22:12:00 29.32 kg/m2 [facility] Systolic blood pressure 2022-09-13 16:26:00 128 mm[Hg] [facility] Diastolic blood pressure 2022-09-13 16:26:00 84 mm[Hg] [facility] Heart rate 2022-09-13 16:26:00 90 /min [facility] Body temperature 2022-09-13 16:26:00 36.67 Karlie [facility] Body height 2022-09-13 16:26:00 154.9 cm [facility] Body weight 2022-09-13 16:26:00 69.854 kg [facility] BMI 2022-09-13 16:26:00 29.10 kg/m2 [facility] Systolic blood pressure 2022-08-11 21:12:00 122 mm[Hg] [facility] Diastolic blood pressure 2022-08-11 21:12:00 77 mm[Hg] [facility] Heart rate 2022-08-11 21:12:00 87 /min [facility] Body temperature 2022-08-11 21:12:00 37.06 Karlie [facility] Respiratory rate 2022-08-11 21:12:00 18 /min [facility] Body height 2022-08-11 21:12:00 154.9 cm [facility] Body weight 2022-08-11 21:12:00 70.398 kg [facility] BMI 2022-08-11 21:12:00 29.32 kg/m2 [facility] Oxygen saturation in Arterial blood by Pulse oximetry 2022-08-11 21:12:00 99 /min [facility] Systolic blood pressure 2022-05-13 19:17:00 110 mm[Hg] [facility] Diastolic blood pressure 2022-05-13 19:17:00 75 mm[Hg] [facility] Heart rate 2022-05-13 19:17:00 78 /min [facility] Respiratory rate 2022-05-13 19:17:00 17 /min [facility] Body height 2022-05-13 19:17:00 157.5 cm [facility] Body weight 2022-05-13 19:17:00 68.493 kg [facility] BMI 2022-05-13 19:17:00 27.62 kg/m2 [facility] Oxygen saturation in Arterial blood by Pulse oximetry 2022-05-13 19:17:00 98 /min [facility] Systolic blood pressure 2021-06-24 18:08:00 124 mm[Hg] [facility] Diastolic blood pressure 2021-06-24 18:08:00 79 mm[Hg] [facility] Heart rate 2021-06-24 18:08:00 91 /min [facility] Body weight 2021-06-24 18:08:00 72.122 kg [facility] BMI 2021-06-24 18:08:00 28.17 kg/m2 [facility] Oxygen saturation in Arterial blood by Pulse oximetry 2021-06-24 18:08:00 94 /min [facility] Systolic blood pressure 2021-06-24 18:08:00 124 mm[Hg] [facility] Diastolic blood pressure 2021-06-24 18:08:00 79 mm[Hg] [facility] Heart rate 2021-06-24 18:08:00 91 /min [facility] Body weight 2021-06-24 18:08:00 72.122 kg [facility] BMI 2021-06-24 18:08:00 28.17 kg/m2 [facility] Oxygen saturation in Arterial blood by Pulse oximetry 2021-06-24 18:08:00 94 /min [facility] Systolic blood pressure 2021-06-24 18:08:00 124 mm[Hg] [facility] Diastolic blood pressure 2021-06-24 18:08:00 79 mm[Hg] [facility] Heart rate 2021-06-24 18:08:00 91 /min [facility] Body weight 2021-06-24 18:08:00 72.122 kg [facility] BMI 2021-06-24 18:08:00 28.17 kg/m2 [facility] Oxygen saturation in Arterial blood by Pulse oximetry 2021-06-24 18:08:00 94 /min [facility] Procedures Procedure Date / Time Performed Performing Clinician Source XR SHOULDER 2+ VW RIGHT 2024-03-22 00:03:59 Delma Ames [facility] POCT URINALYSIS W/O SPECIFIC GRAVITY 2023-11-28 16:46:00 Kevin Pulido [facility] ASSIGNMENT OF BENEFITS 2023-11-28 16:30:53 Docto r Unassigned, [place] [facility] POCT SARS-COV-2 ANTIGEN (BINAX NOW) 2023-08-07 00:00:00 Gokul Persaud [facility] POCT SARS-COV-2 ANTIGEN (BINAX NOW) 2023-08-04 19:46:00 Сергей Morrison [facility] FLU VACC (), 6 MO-64 YRS, .5ML, IM, QUAD (FLUCELVAX) 2023-07-05 21:41:38 Cruz Francois [facility] POCT URINALYSIS 2023-04-28 21:19:00 Сергей Morrison [facility] URINE CULTURE 2023-04-28 21:18:00 [facility]. METABOLIC PANEL (64782) 2023-04-28 20:56:00 Giuseppe Montano [facility] LIPID PANEL (76287)(TOTAL CHOLESTEROL, TRIGLYCERIDES, HDL) 2023-04-28 20:56:00 Giuseppe Montano [facility] GLYCOSYLATED HEMOGLOBIN (A1C) 2023-04-28 20:56:00 Giuseppe Montano [facility] LOW-DENSITY LIPOPROTEIN, DIRECT 2023-04-28 20:56:00 Giuseppe Montano [facility] POCT SARS-COV-2 ANTIGEN (BINAX NOW) 2023-03-24 23:10:00 Harmony Araya [facility] POCT MOLECULAR STREP 2023-03-24 22:21:00 Unknown, Attclare cummins [facility] COMP. METABOLIC PANEL (86432) 2022-12-28 13:27:00 Giuseppe Montano [facility] LIPID PANEL (11152)(TOTAL CHOLESTEROL, TRIGLYCERIDES, HDL) 2022-12-28 13:27:00 Giuseppe Montano [facility] CBC WITH DIFF 2022-12-28 13:27:00 Giuseppe Montano [facility] GLYCOSYLATED HEMOGLOBIN (A1C) 2022-12-28 13:27:00 Giuseppe Montano [facility] URINALYSIS 2022-12-28 13:27:00 Gokul Persaud [facility] VITAMIN D, 25-OH 2022-12-28 13:27:00 Micaela Morrison [facility] LOW-DENSITY LIPOPROTEIN, DIRECT 2022-12-28 13:27:00 Giuseppe Montano [facility] FREE T4 2022-12-28 13:27:00 Сергей Morrison [facility] THYROID STIMULATING HORMONE 2022-12-28 13:27:00 Сергей Morrison [facility] URINE CULTURE 2022-12-28 13:27:00 [facility] 2022-12-28 13:27:00 Сергей Morrison [facility] PATIENT QUESTIONNAIRE 2022-12-24 05:01:00 Doctor Unassigned, [place] [facility] POCT URINALYSIS 2022-12-19 16:52:00 Сергей Morrison [facility] EXTERNAL PROVIDER - ADC CARDIOLOGY 2022-12-02 06:01:00 Doctor Unassigned, [place] [facility] ASSIGNMENT OF BENEFITS 2022-11-23 16:56:34 Docto r Unassigned, [place] [facility] WOUND CULTURE 2022-09-20 22:25:[address] [facility] POCT URINALYSIS W/O SPECIFIC GRAVITY 2022-09-13 00:00:00 Quiana [facility] POCT SARS-COV-2 ANTIGEN (BINAX NOW) 2022-08-11 21:35:00 Alonso Ames [facility] POCT MOLECULAR STREP 2022-08-11 21:33:00 Unknown, Attclare cummins [facility] POCT MOLECULAR FLU 2022-08-11 21:21:00 Unknown, Attend ing [facility] MICROALBUMIN URINE 2022-07-12 13:07:00 Jerad Persaud [facility] COMP. METABOLIC PANEL (99119) 2022-07-12 13:07:00 Giuseppe Motnano [facility] LIPID PANEL (28134)(TOTAL CHOLESTEROL, TRIGLYCERIDES, HDL) 2022-07-12 13:07:00 Giuseppe Montano [facility] CBC WITH DIFF 2022-07-12 13:07:00 Gokul Persaud [facility] GLYCOSYLATED HEMOGLOBIN (A1C) 2022-07-12 13:07:00 Gokul Persaud [facility] URINALYSIS 2022-07-12 13:07:00 Gokul Persaud [facility] N-TERMINAL PRO-BNP 2022-07-12 13:07:00 Giuseppe Montano [facility] PHYSICIAN ORDERS 2022-06-17 05:01:00 Doctor Unas signed, [place] [facility] URINALYSIS 2022-05-13 20:03:00 Gokul Persaud [facility] URINE CULTURE 2022-05-13 20:03:00 [facility]okul Persaud [facility] 2021-06-24 18:11:[address] [facility] Encounters Start Date/Time End Date/Time Encounter Type Admission Type Attending [facility] Facility Care Department Encounter ID Source 2021-07-24 06:30:58 Inpatient U ARUNATAMARAKEAGAN [facility] [id number] [facility] 2024-06-05 14:00:00 2024-06-05 14:00:00 Outpatient R [facility] [id number] [facility] 2024-06-03 14:00:00 2024-06-03 14:00:00 Outpatient R [facility] [id number] [facility] 2024-05-31 14:20:00 2024-05-31 14:20:00 Nurse Visit Nurse, [facility] Сергей Morrison Nurse, [facility] 1.2.840.114 350.1.13.10 4.2.7.2.686 [id number] [facility] 2024-05-31 14:20:00 2024-05-31 11:30:25 Outpatient R СЕРГЕЙ MORRISON OGECHUKWU [facility] [id number] [facility] 2024-05-30 11:00:00 2024-05-30 11:00:00 Outpatient R KEVIN PULIDO VIEN [facility] [id number] [facility] 2024-05-29 12:00:00 2024-05-29 12:00:00 Outpatient R СЕРГЕЙ MORRISON OGECHUKWU [facility] [id number] [facility] 2024-05-28 00:00:00 2024-05-28 14:18:39 Telephone Сергей Morrison [facility] 1.2.840.114 350.1.13.10 4.2.7.2.686 [id number] [facility] 2024-05-28 12:00:00 2024-05-28 12:53:30 Outpatient R СЕРГЕЙ MORRISON OGECHUKWU [facility] [id number] [facility] 2024-05-23 00:00:00 2024-05-24 09:32:27 Vitaliy Monsivais [facility] 1..840.114 350.1.13.10 4.2.7.2.686 [id number] [facility] 2024-05-22 11:30:00 2024-05-22 11:30:00 Outpatient R СЕРГЕЙ MORRISON OGECHUKWU [facility] [id number] [facility] 2024-05-17 11:00:00 2024-05-17 11:00:00 Outpatient R СЕРГЕЙ MORRISON OGECHUKWU [facility] [id number] [facility] 2024-03-22 00:00:00 2024-04-27 18:24:42 Patient Secure Msg Doctor Unassigned, [place] [facility] 1..840.114 350.1.13.10 4.2.7.2.686 [id number] [facility] 2024-04-05 11:30:00 2024-04-05 11:30:00 Outpatient R VITALIY JEWELL [facility] [id number] [facility] 2024-03-21 18:49:45 2024-03-21 23:59:00 Outpatient R ALONSO AMES [facility] [id number] [facility] 2024-03-21 18:49:45 2024-03-21 23:59:00 Hospital Encounter Alonso Ames [facility] 1.0.114 350.1.13.10 4.2.7.2.686 [id number] [facility] 2024-03-21 18:20:00 2024-03-21 19:15:45 Urgent Care Alonso Ames [facility] 1.0.114 350.1.13.10 4.2.7.2.686 [id number] [facility] 2024-03-14 08:00:00 2024-03-14 08:00:00 Outpatient R KEVIN PULIDO [facility] [id number] [facility] 2019-08-21 00:00:00 2024-03-12 02:25:03 Mobile Device Encounter Flory Nagy [facility] 1.114 350.1.13.10 4.2.7.2.686 [id number] [facility] 2020-03-13 00:00:00 2024-03-12 02:23:21 Mobile Device Encounter Helen Ugalde [facility] 1..114 350.1.13.10 4.2.7.2.686 [id number] [facility] 2024-01-17 15:00:00 2024-01-17 15:26:10 Outpatient R OBI-DEMAR IKER OBI-DEMAR , [facility] [id number] [facility] 2024-01-17 15:00:00 2024-01-17 15:26:10 Nurse Visit Nurse, Edgard Hoyos Obi-Demar , [facility] BUILDING 1..114 350.1.13.10 4.2.7.2.686 [id number] [facility] 2024-01-17 14:20:00 2024-01-17 14:20:00 Outpatient R [facility] [id number] [facility] 2024-01-15 12:00:00 2024-01-15 12:46:33 Outpatient R СЕРГЕЙ MORRISON OGECHUKWU [facility] [id number] [facility] 2024-01-15 12:00:00 2024-01-15 12:46:33 Office Visit Сергей Morrison [facility] 1.2.840.114 350.1.13.10 4.2.7.2.686 [id number] [facility] 2024-01-15 00:00:00 2024-01-15 00:00:00 Telephone Сергей Morrison [facility] 1.2.840.114 350.1.13.10 4.2.7.2.686 [id number] [facility] 2024-01-15 00:00:00 2024-01-15 00:00:00 Refill Сергей Morrison [facility] 1.2.840.114 350.1.13.10 4.2.7.2.686 [id number] [facility] 2024-01-12 15:30:00 2024-01-12 15:45:00 Screening Tech Visit 2, [facility] Сергей Morrison [facility] 1.2.840.114 350.1.13.10 4.2.7.2.686 [id number] [facility] 2024-01-12 15:30:00 2024-01-12 15:30:00 Outpatient R СЕРГЕЙ MORRISON OGECHUKWU [facility] [id number] [facility] 2024-01-12 00:00:00 2024-01-12 00:00:00 Telephone Сергей Morrison [facility] 1.2.840.114 350.1.13.10 4.2.7.2.686 [id number] [facility] 2024-01-12 00:00:00 2024-01-12 00:00:00 Telephone Сергей Morrison [facility] 1.2.840.114 350.1.13.10 4.2.7.2.686 [id number] [facility] 2024-01-09 00:00:00 2024-01-09 00:00:00 Refill Сергей Morrison [facility] 1.2.840.114 350.1.13.10 4.2.7.2.686 [id number] [facility] 2023-12-27 00:00:00 2023-12-27 00:00:00 Refill Kevin Pulido [facility] 1.2.840.114 350.1.13.10 4.2.7.2.686 [id number] [facility] 2023-12-27 00:00:00 2023-12-27 00:00:00 Refill Kevin Pulido [facility] 1.2.840.114 350.1.13.10 4.2.7.2.686 [id number] [facility] 2023-12-18 00:00:00 2023-12-18 00:00:00 Refill Сергей Morrison [facility] 1.2.840.114 350.1.13.10 4.2.7.2.686 [id number] [facility] 2023-12-01 00:00:00 2023-12-01 00:00:00 Patient Secure Msg Doctor Unassigned, [place] [facility] 1.2.840.114 350.1.13.10 4.2.7.2.686 [id number] [facility] 2023-11-28 10:45:00 2023-11-28 11:09:18 Outpatient R KEVIN PULIDO [facility] [id number] [facility] 2023-11-28 10:45:00 2023-11-28 11:09:18 Office Visit Kevin Pulido [facility] 1.2.840.114 350.1.13.10 4.2.7.2.686 [id number] [facility] 2023-11-28 00:00:00 2023-11-28 00:00:00 Orders Only Doctor Unassigned, [place] [facility] 1.2.840.114 350.1.13.10 4.2.7.2.686 [id number] [facility] 2023-11-13 00:00:00 2023-11-13 00:00:00 Refill Susie Pulidoen Kiran [facility] 1..840.114 350.1.13.10 4.2.7.2.686 [id number] [facility] 2023-11-13 00:00:00 2023-11-13 00:00:00 Refill Gokul Persaud [facility] 1.2.840.114 350.1.13.10 4.2.7.2.686 [id number] [facility] 2023-10-20 11:00:00 2023-10-20 11:00:00 Outpatient R MIMA JIMENEZ [facility] [id number] [facility] 2023-10-13 12:30:00 2023-10-13 12:30:00 Outpatient R TONY MIMA [facility] [id number] [facility] 2023-10-09 00:00:00 2023-10-09 00:00:00 Telephone Giuseppe Montano [facility] 1.2.840.114 350.1.13.10 4.2.7.2.686 [id number] [facility] 2023-10-06 13:00:00 2023-10-06 13:56:46 Outpatient R VITALIY JEWELL [facility] [id number] [facility] 2023-10-06 13:00:00 2023-10-06 13:56:46 Office Visit Vitaliy Jewell [facility] 1.2840.114 350.1.13.10 4.2.7.2.686 [id number] [facility] 2023-10-03 00:00:00 2023-10-03 00:00:00 Case Management Giuseppe Montano [facility] 1.2.840.114 350.1.13.10 4.2.7.2.686 [id number] [facility] 2023-09-29 00:00:00 2023-09-29 00:00:00 Telephone Gokul Persaud [facility] 1.2.840.114 350.1.13.10 4.2.7.2.686 [id number] [facility] 2023-09-29 00:00:00 2023-09-29 00:00:00 Refill Giuseppe Montano [facility] 1.2840.114 350.1.13.10 4.2.7.2.686 [id number] [facility] 2023-09-29 00:00:00 2023-09-29 00:00:00 [facility] 1.2.840.114 350.1.13.10 4.2.7.2.686 [id number] [facility] 2023-09-29 00:00:00 2023-09-29 00:00:00 Telephone Mima Jimenez [facility] 1.2.840.114 350.1.13.10 4.2.7.2.686 [id number] [facility] 2023-09-29 00:00:00 2023-09-29 00:00:00 Telephone Mima Jimenez [facility] 1.2.840.114 350.1.13.10 4.2.7.2.686 [id number] [facility] 2023-09-29 00:00:00 2023-09-29 00:00:00 Refill Kevin Pulido [facility] 1.2.840.114 350.1.13.10 4.2.7.2.686 [id number] [facility] 2023-09-29 00:00:00 2023-09-29 00:00:00 Refill Mima Jimenez [facility] 1.2.840.114 350.1.13.10 4.2.7.2.686 [id number] [facility] 2023-09-29 00:00:00 2023-09-29 00:00:00 Refill Сергей Morrison [facility] 1.2.840.114 350.1.13.10 4.2.7.2.686 [id number] [facility] 2023-09-28 07:45:00 2023-09-28 08:00:00 Screening Tech Visit Lab, Roberto Pablo Gokul Persaud [facility] 1.2.840.114 350.1.13.10 4.2.7.2.686 [id number] [facility] 2023-09-28 07:45:00 2023-09-28 07:45:00 Outpatient R GOKUL PERSAUD [facility] [id number] [facility] 2023-09-28 00:00:00 2023-09-28 00:00:00 Patient Secure g Gokul Perasud [facility] 1.2.840.114 350.1.13.10 4.2.7.2.686 [id number] [facility] 2023-09-08 00:00:00 2023-09-08 00:00:00 Telephone Hung [facility] 1.2.840.114 350.1.13.10 4.2.7.2.686 [id number] [facility] 2023-09-06 00:00:00 2023-09-06 00:00:00 Patient Secure Msg Doctor Unassigned, [place] [facility] 1.2.840.114 350.1.13.10 4.2.7.2.686 [id number] [facility] 2023-09-05 00:00:00 2023-09-05 00:00:00 Outpatient GC_GCBZW_Ka diyala_S PRIV PRIV [id number] [facility] 2023-09-05 00:00:00 2023-09-05 00:00:00 Outpatient GC_GCBZW_Ka diyala_S PRIV PRIV [id number] [facility] 2023-09-01 00:00:00 2023-09-01 00:00:00 Telephone Gokul Persaud [facility] 1..840.114 350.1.13.10 4.2.7.2.686 [id number] [facility] 2023-08-25 00:00:00 2023-08-25 00:00:00 Outpatient R MIRIAMVAIBHAV GOKUL [facility] [id number] [facility] 2023-08-07 14:20:00 2023-08-07 14:40:00 Nurse Visit Nurse, [facility] 1..840.114 350.1.13.10 4.2.7.2.686 [id number] [facility] 2023-08-07 14:20:00 2023-08-07 13:49:55 Outpatient R HUNG GOKUL [facility] [id number] [facility] 2023-08-04 15:00:00 2023-08-04 15:52:30 Outpatient R TAMIKO CAROLYNJeromeJamie MORRISON CAROLYNJeromeJamie [facility] [id number] [facility] 2023-08-04 15:00:00 2023-08-04 15:52:30 Telemedici ne Visit Tamiko Carolynjeromejamie [facility] 1..840.114 350.1.13.10 4.2.7.2.686 [id number] [facility] 2023-08-04 14:20:00 2023-08-04 14:20:00 Nurse Visit Nurse, [facility] Miriamvaibhav [facility] 1..840.114 350.1.13.10 4.2.7.2.686 [id number] [facility] 2023-07-24 00:00:00 2023-07-24 00:00:00 Outpatient GC_[email or web address] neisha_S [facility] [id number] [facility] 2023-07-10 00:00:00 2023-07-10 00:00:00 Telephone Сергей Morrison [facility] 1..840.114 350.1.13.10 4.2.7.2.686 [id number] [facility] 2023-07-06 14:32:00 2023-07-06 23:59:00 Hospital Encounter David Valdez [facility] 1.2.840.114 350.1.13.10 4.2.7.2.686 [id number] [facility] 2023-07-06 00:00:00 2023-07-06 23:59:00 [facility] [id number] [facility] 2023-07-04 14:00:00 2023-07-04 14:20:00 Nurse Visit Nurse, Gokul Rodriguez [facility] [facility] 1..840.114 350.1.13.10 4.2.7.2.686 [id number] 044 [id number] [facility] 2023-07-04 14:00:00 2023-07-04 14:00:00 Outpatient GOKUL FONSECA [facility] [id number] [facility] 2023-06-21 00:00:00 2023-06-21 00:00:00 Patient Secure Msg TamikoСергей [facility] 1.2.840.114 350.1.13.10 4.2.7.2.686 [id number] 044 [id number] [facility] 2023-06-21 00:00:00 2023-06-21 00:00:00 Refill Сергей Morrison [facility] 1.2.840.114 350.1.13.10 4.2.7.2.686 [id number] 044 [id number] [facility] 2023-05-05 00:00:00 2023-05-05 00:00:00 Telephone Сергей Morrison [facility] 1.2.840.114 350.1.13.10 4.2.7.2.686 [id number] 044 [id number] [facility] 2023-05-01 00:00:00 2023-05-01 00:00:00 Telephone Сергей Morrison [facility] 1.2.840.114 350.1.13.10 4.2.7.2.686 [id number] 044 [id number] [facility] 2023-04-28 15:00:00 2023-04-28 16:16:09 Outpatient R СЕРГЕЙ MORRISON OGECHUKWU [facility] [id number] [facility] 2023-04-28 15:00:00 2023-04-28 16:16:09 Office Visit Сергей Morrison [facility] 1.2.840.114 350.1.13.10 4.2.7.2.686 [id number] 044 [id number] [facility] 2023-04-28 16:00:00 2023-04-28 16:02:00 Screening Tech Visit 2, Adc Lab Сергей Morrison [facility] 1.2.840.114 350.1.13.10 4.2.7.2.686 [id number] 353 [id number] [facility] 2023-04-25 11:30:00 2023-04-25 11:30:00 Outpatient R TAMIKOСЕРГЕЙ AMRTINS OGECHUKWU [facility] [id number] [facility] 2023-04-21 11:30:00 2023-04-21 11:30:00 Outpatient R СЕРГЕЙ MORRISON OGECHUKWU [facility] [id number] [facility] 2023-04-06 00:00:00 2023-04-06 00:00:00 [facility] 1.2.840.114 350.1.13.10 4.2.7.2.686 [id number] 044 [id number] [facility] 2023-03-24 17:20:00 2023-03-24 18:18:16 Outpatient R HARMONY ARAYA [facility] [id number] [facility] 2023-03-24 17:20:00 2023-03-24 18:18:16 Urgent Care Harmony Araya Unknown, Attending [facility] 1.2.840.114 350.1.13.10 4.2.7.2.686 [id number] 370 [id number] [facility] 2023-03-10 00:00:00 2023-03-10 00:00:00 Giuseppe Lentz [facility] 1.2.840.114 350.1.13.10 4.2.7.2.686 [id number] 059 [id number] [facility] 2023-02-23 00:00:00 2023-02-23 00:00:00 Outpatient R RADIOLOGY [facility] [id number] [facility] 2023-02-10 00:00:00 2023-02-10 00:00:00 Patient Secure Msg Сергей Morrison [facility] NAL BUILDING 1.2.840.114 350.1.13.10 4.2.7.2.686 [id number] 044 [id number] [facility] 2023-02-10 00:00:00 2023-02-10 00:00:00 Telephone Сергей Morrison [facility] NAL BUILDING 1.2.840.114 350.1.13.10 4.2.7.2.686 [id number] 044 [id number] [facility] 2023-02-10 00:00:00 2023-02-10 00:00:00 [facility] 1.2.840.114 350.1.13.10 4.2.7.2.686 [id number] 044 [id number] [facility] 2023-02-10 00:00:00 2023-02-10 00:00:00 Telephone Сергей Morrison [facility] NAL BUILDING 1.2.840.114 350.1.13.10 4.2.7.2.686 [id number] 044 [id number] [facility] 2023-02-10 00:00:00 2023-02-10 00:00:00 Patient Secure Msg [facility] 1.2.840.114 350.1.13.10 4.2.7.2.686 [id number] 044 [id number] [facility] 2023-02-07 10:00:00 2023-02-07 10:15:00 Screening Tech Visit 2, Adc Lab Сергей Morrison [facility] NAL BUILDING 1.2.840.114 350.1.13.10 4.2.7.2.686 [id number] [facility] 2023-02-07 10:00:00 2023-02-07 10:00:00 Outpatient R СЕРГЕЙ MORRISON CAROLYNMIKHAIL [facility] [id number] [facility] 2023-01-25 00:00:00 2023-01-25 00:00:00 Patient Secure Msg Сергей Morrison [facility] 1.2.840.114 350.1.13.10 4.2.7.2.686 [id number] 044 [id number] [facility] 2023-01-12 00:00:00 2023-01-12 00:00:00 Case Management Giuseppe Montano [facility] 1.2.840.114 350.1.13.10 4.2.7.2.686 [id number] 008 [id number] [facility] 2022-12-30 00:00:00 2022-12-30 00:00:00 Telephone TamikoСергей [facility] 1.2.840.114 350.1.13.10 4.2.7.2.686 [id number] 044 [id number] [facility] 2022-12-30 00:00:00 2022-12-30 00:00:00 Patient Secure Msg Doctor Unassigned, [place] [facility] 1.2.840.114 350.1.13.10 4.2.7.2.686 [id number] 044 [id number] [facility] 2022-12-28 08:15:00 2022-12-28 08:35:36 Screening Tech Visit 2, Adc Lab Tamiko Сергей [facility] 1.2.840.114 350.1.13.10 4.2.7.2.686 [id number] 353 [id number] [facility] 2022-12-28 08:15:00 2022-12-28 08:15:00 Outpatient R СЕРГЕЙ MORRISON OGECHUKWU [facility] [id number] [facility] 2022-12-24 00:00:00 2022-12-24 00:00:00 Orders Only Doctor Unassigned, [place] [facility] 1.2840.114 350.1.13.10 4.2.7.2.686 [id number] [id number] [facility] 2022-12-21 00:00:00 2022-12-21 00:00:00 Patient Secure Msg [facility] 1.2840.114 350.1.13.10 4.2.7.2.686 [id number] 044 [id number] [facility] 2022-12-19 11:30:00 2022-12-19 12:27:02 Outpatient R СЕРГЕЙ MORRISON OGECHUKWU [facility] [id number] [facility] 2022-12-19 11:30:00 2022-12-19 12:27:02 Office Visit Сергей Morrison [facility] 1.840.114 350.1.13.10 4.2.7.2.686 [id number] 044 [id number] [facility] 2022-12-19 00:00:00 2022-12-19 00:00:00 Patient Secure Msg Doctor Unassigned, [place] [facility] 1.84114 350.1.13.10 4.2.7.2.686 [id number] 044 [id number] [facility] 2022-12-15 16:00:00 2022-12-15 16:00:00 Outpatient R СЕРГЕЙ MORRISON OGECHUKWU [facility] [id number] [facility] 2022-12-02 00:00:00 2022-12-02 00:00:00 Case Management Giuseppe Montano [facility] 1.84.114 350.1.13.10 4.2.7.2.686 [id number] [id number] [facility] 2022-12-02 00:00:00 2022-12-02 00:00:00 Orders Only Doctor Unassigned, [place] [facility] 1.2840.114 350.1.13.10 4.2.7.2.686 [id number] [id number] [facility] 2022-11-23 11:00:00 2022-11-23 11:35:45 Outpatient R СЕРГ[facility]Й [facility] [id number] [facility] 2022-11-23 11:00:00 2022-11-23 11:35:45 Office Visit Tamiko, Сергей [facility] 1.84.114 350.1.13.10 4.2.7.2.686 [id number] 044 [id number] [facility] 2022-11-23 00:00:00 2022-11-23 00:00:00 Orders Only Doctor Unassigned, [place] [facility] 1.2.114 350.1.13.10 4.2.7.2.686 [id number] [facility] 2022-11-22 15:30:00 2022-11-22 15:30:00 Outpatient R MIMA JIMENEZ [facility] [id number] [facility] 2022-10-06 00:00:00 2022-10-06 00:00:00 [facility] 1.840.114 350.1.13.10 4.2.7.2.686 [id number] 134 [id number] [facility] 2022-09-20 16:30:00 2022-09-20 16:30:00 Office Visit Harmony Araya [facility] 1.284.114 350.1.13.10 4.2.7.2.686 [id number] 134 [id number] [facility] 2022-09-20 16:30:00 2022-09-20 16:24:20 Outpatient R QUIANA HARMONY [facility] [id number] [facility] 2022-09-20 00:00:00 2022-09-20 00:00:00 Patient Secure Msg Case, Debby Cardenas [facility] 1.2.840.114 350.1.13.10 4.2.7.2.686 [id number] 134 [id number] [facility] 2022-09-20 00:00:00 2022-09-20 00:00:00 Case Management Quiana Harmony [facility] 1.2.840.114 350.1.13.10 4.2.7.2.686 [id number] 134 [id number] [facility] 2022-09-13 16:30:00 2022-09-13 16:30:00 Office Visit Quiana Harmony [facility] 1.2.840.114 350.1.13.10 4.2.7.2.686 [id number] 134 [id number] [facility] 2022-09-13 16:30:00 2022-09-13 10:45:24 Outpatient R QUIANA HARMONY [facility] [id number] [facility] 2022-09-13 00:00:00 2022-09-13 00:00:00 Letter (Out) Quiana Harmony [facility] 1.2.840.114 350.1.13.10 4.2.7.2.686 [id number] 134 [id number] [facility] 2022-08-11 14:40:00 2022-08-11 15:00:00 Urgent Care Alonso Ames Unknown, Attending [facility] 1.2.840.114 350.1.13.10 4.2.7.2.686 [id number] 370 [id number] [facility] 2022-08-11 14:40:00 2022-08-11 14:40:00 Outpatient R JUNIORMARIALUISAALONSO Bennett [facility] [id number] [facility] 2022-08-11 00:00:00 2022-08-11 00:00:00 Letter (Out) Provider, Ang Db Urgent Care [facility] 1..840.114 350.1.13.10 4.2.7.2.686 [id number] 370 [id number] [facility] 2022-07-25 08:00:00 2022-07-25 08:00:00 Outpatient KEVIN LANGLEY [facility] [id number] [facility] 2022-07-14 00:00:00 2022-07-14 00:00:00 Telephone Giuseppe MontanoHShawna [facility] 1..840.114 350.1.13.10 4.2.7.2.686 [id number] 059 [id number] [facility] 2022-07-14 00:00:00 2022-07-14 00:00:00 Telephone Giuseppe Montano [facility] 1..840.114 350.1.13.10 4.2.7.2.686 [id number] 059 [id number] [facility] 2022-07-13 08:19:00 2022-07-13 23:59:00 Hospital Encounter David Valdez BUILDING 1.2.840.114 350.1.13.10 4.2.7.2.686 [id number] 031 [id number] [facility] 2022-07-13 00:00:00 2022-07-13 23:59:00 Outpatient DAVID ESCOTO [facility] [id number] [facility] 2022-07-13 00:00:00 2022-07-13 00:00:00 Giuseppe LiuYumikoShawna [facility] 1..840.114 350.1.13.10 4.2.7.2.686 [id number] 059 [id number] [facility] 2022-07-12 08:00:00 2022-07-12 08:23:14 Screening Tech Visit 2, Adc Lab Giuseppe Montano [facility] 1..840.114 350.1.13.10 4.2.7.2.686 [id number] 353 [id number] [facility] 2022-07-12 08:00:00 2022-07-12 08:00:00 Outpatient R GIUSEPPE MONTANO [facility] [id number] [facility] 2022-06-20 00:00:00 2022-06-20 00:00:00 Case Management Helen Ugalde [facility] 1..840.114 350.1.13.10 4.2.7.2.686 [id number] [facility] 2022-06-17 13:15:00 2022-06-17 13:15:00 Outpatient GOKUL FONSECA [facility] [id number] [facility] 2022-06-17 13:15:00 2022-06-17 13:15:00 Screening Tech Visit 2, Adc Lab Gokul Persaud [facility] 1..840.114 350.1.13.10 4.2.7.2.686 [id number] 353 [id number] [facility] 2022-06-17 00:00:00 2022-06-17 00:00:00 Orders Only Doctor Unassigned, [place] [facility] 1.2.840.114 350.1.13.10 4.2.7.2.686 [id number] [id number] [facility] 2022-06-02 00:00:00 2022-06-02 00:00:00 Telephone Christopher, Josh M [facility] 1.2840.114 350.1.13.10 4.2.7.2.686 [id number] 044 [id number] [facility] 2022-06-01 09:30:00 2022-06-01 09:30:00 Outpatient R ANDRES GARZON YU [facility] [id number] [facility] 2022-05-31 00:00:00 2022-05-31 00:00:00 Patient Secure Msg Christopher, Josh M [facility] 1.2840.114 350.1.13.10 4.2.7.2.686 [id number] 044 [id number] [facility] 2022-05-31 00:00:00 2022-05-31 00:00:00 Case Management Helen Ugalde [facility] 1.2840.114 350.1.13.10 4.2.7.2.686 [id number] 044 [id number] [facility] 2022-05-31 00:00:00 2022-05-31 00:00:00 Gokul Medley [facility] 1.2840.114 350.1.13.10 4.2.7.2.686 [id number] 044 [id number] [facility] 2022-05-19 15:00:00 2022-05-19 15:15:00 Laboratory Only Only, Adc Pob2 Test Merritt Pettit [facility] BUILD[facility] 1.2840.114 350.1.13.10 4.2.7.2.686 [id number] 225 [id number] [facility] 2022-05-19 15:00:00 2022-05-19 14:09:59 Outpatient R GUERRERO MERRITT [facility] [id number] [facility] 2022-05-13 14:20:00 2022-05-13 14:31:56 Outpatient R GOKUL PERSAUD [facility] [id number] [facility] 2022-05-13 14:20:00 2022-05-13 14:31:56 [facility] 1.2.840.114 350.1.13.10 4.2.7.2.686 [id number] [id number] [facility] 2022-05-13 14:20:00 2022-05-13 14:31:56 Outpatient R GOKUL PERSAUD [facility] [id number] [facility] 2022-05-06 13:30:00 2022-05-06 13:30:00 Outpatient R ELANA AGUIRRE [facility] [id number] [facility] 2022-04-01 10:15:00 2022-04-01 10:15:00 Outpatient R ROSS HANSEN [facility] [id number] [facility] 2022-03-31 11:00:00 2022-03-31 12:10:04 Outpatient R KEVIN PULIDO [facility] [id number] [facility] 2022-03-31 11:00:00 2022-03-31 12:10:04 Office Visit Kevin Pulido [facility] 1.2.840.114 350.1.13.10 4.2.7.2.686 [id number] 134 [id number] [facility] 2022-03-31 11:00:00 2022-03-31 12:10:04 Outpatient R KEVIN PULIDO [facility] [id number] [facility] 2022-03-25 00:00:00 2022-03-25 00:00:00 Case Management Giuseppe Montano [facility] 1.2840.114 350.1.13.10 4.2.7.2.686 [id number] [facility] 2022-03-23 11:00:00 2022-03-23 11:00:00 Outpatient KEVIN LANGLEY [facility] [id number] [facility] 2022-03-23 00:00:00 2022-03-23 00:00:00 Refill Kevin Pulido [facility] 1..840.114 350.1.13.10 4.2.7.2.686 [id number] 134 [id number] [facility] 2022-03-22 08:00:00 2022-03-22 08:15:00 Screening Tech Visit 2, Adc Lab Giuseppe Montano [facility] BU[facility] 1.2.840.114 350.1.13.10 4.2.7.2.686 [id number] 353 [id number] [facility] 2022-03-22 08:00:00 2022-03-22 08:00:00 Outpatient R GIUSEPPE MONTANO [facility] [id number] [facility] 2022-03-22 00:00:00 2022-03-22 00:00:00 Orders Only Doctor Unassigned, [place] [facility] 1.2840.114 350.1.13.10 4.2.7.2.686 [id number] [id number] [facility] 2022-03-17 00:00:00 2022-03-17 00:00:00 Refill Kevin Pulido [facility] BUILDING 1.2.840.114 350.1.13.10 4.2.7.2.686 [id number] 134 [id number] [facility] 2022-03-08 00:00:00 2022-03-08 00:00:00 Refill Giuseppe Montano [facility] 1.2.840.114 350.1.13.10 4.2.7.2.686 [id number] 059 [id number] [facility] 2022-03-08 00:00:00 2022-03-08 00:00:00 Refill Giuseppe Montano [facility] 1.2.840.114 350.1.13.10 4.2.7.2.686 [id number] 059 [id number] [facility] 2022-03-07 00:00:00 2022-03-07 00:00:00 Patient Secure Msg White, Josh M [facility] 1.2.840.114 350.1.13.10 4.2.7.2.686 [id number] [id number] [facility] 2022-03-05 00:00:00 2022-03-05 00:00:00 [place] Hui [facility] 1.2.840.114 350.1.13.10 4.2.7.2.686 [id number] 370 [id number] [facility] 2022-03-03 17:40:00 2022-03-03 18:00:00 [facility] 1.2.840.114 350.1.13.10 4.2.7.2.686 [id number] 370 [id number] [facility] 2022-03-03 17:40:00 2022-03-03 17:55:20 Outpatient R ERICK ANN [facility] [id number] [facility] 2022-03-02 08:00:00 2022-03-02 08:00:00 Outpatient R [facility] [id number] [facility] 2022-02-17 15:15:00 2022-02-17 15:15:00 Outpatient KEVIN LANGLEY [facility] [id number] [facility] 2022-02-17 00:00:00 2022-02-17 00:00:00 Patient Secure Kevin Estrada [facility] BUILD[facility] 1.2.840.114 350.1.13.10 4.2.7.2.686 [id number] 134 [id number] [facility] 2022-02-17 00:00:00 2022-02-17 00:00:00 Refill Fish, [place] [facility] 1.2840.114 350.1.13.10 4.2.7.2.686 [id number] 134 [id number] [facility] 2022-02-17 00:00:00 2022-02-17 00:00:00 Refill Fish, [place] [facility] 1.2840.114 350.1.13.10 4.2.7.2.686 [id number] 134 [id number] [facility] 2022-02-08 00:00:00 2022-02-08 00:00:00 Telephone Giuseppe Montano [facility] BUILD[facility] 1.2.840.114 350.1.13.10 4.2.7.2.686 [id number] 059 [id number] [facility] 2022-02-07 11:00:00 2022-02-07 11:34:00 Outpatient N GIUSEPPE MONTANO [facility] [id number] [facility] 2022-01-20 08:30:00 2022-01-20 08:30:00 Outpatient KEVIN LANGLEY [facility] [id number] [facility] 2022-01-10 00:00:00 2022-01-10 00:00:00 Refill Fish, [place] [facility] 1.2840.114 350.1.13.10 4.2.7.2.686 [id number] 134 [id number] [facility] 2021-12-01 16:00:00 2021-12-01 15:48:33 Outpatient R JOSE VELIZ [facility] [id number] [facility] 2021-12-01 13:20:00 2021-12-01 13:20:00 Outpatient R ELATHA DAVE [facility] [id number] [facility] 2021-11-05 00:00:00 2021-11-05 00:00:00 Telephone Giuseppe Montano [facility] 1.2.840.114 350.1.13.10 4.2.7.2.686 [id number] 059 [id number] [facility] 2021-10-13 09:30:00 2021-10-13 09:30:00 Screening Tech Visit Nurse, Kal Baeza [facility] 1..840.114 350.1.13.10 4.2.7.2.686 [id number] [facility] 2021-10-13 09:30:00 2021-10-13 08:06:28 Outpatient KAL FREEMAN [facility] [id number] [facility] 2021-10-07 13:00:00 2021-10-07 13:00:00 Outpatient R GIUSEPPE MONTANO [facility] [id number] [facility] 2021-10-07 00:00:00 2021-10-07 00:00:00 Patient Secure Msg Giuseppe Montano [facility] 1.2.840.114 350.1.13.10 4.2.7.2.686 [id number] 059 [id number] [facility] 2021-09-09 16:20:00 2021-09-09 16:40:00 Nurse Visit Nurse, Kal Baeza [facility] 1..840.114 350.1.13.10 4.2.7.2.686 [id number] [facility] 2021-09-09 16:20:00 2021-09-09 16:39:23 Outpatient R KAL MAURICIO [facility] [id number] [facility] 2021-08-31 00:00:00 2021-08-31 00:00:00 Hortensia Linares [facility] OFFICE BUILDING ONE 1..840.114 350.1.13.10 4.2.7.2.686 [id number] 044 [id number] [facility] 2021-08-31 00:00:00 2021-08-31 00:00:00 Patient Secure Msg Giuseppe Montano [facility] 1..840.114 350.1.13.10 4.2.7.2.686 [id number] 059 [id number] [facility] 2021-08-23 08:04:58 2021-08-23 23:59:00 Outpatient R KEVIN PULIDO [facility] [id number] [facility] 2021-08-23 08:00:00 2021-08-23 23:59:00 Hospital Encounter Kevin Pulido [facility] 1..840.114 350.1.13.10 4.2.7.2.686 [id number] [facility] 2021-07-26 00:00:00 2021-07-26 00:00:00 Letter (Out) Kevin Pulido [facility] BUILDING 1..840.114 350.1.13.10 4.2.7.2.686 [id number] 134 [id number] [facility] 2021-07-26 00:00:00 2021-07-26 00:00:00 Patient Secure Msg Kevin Pulido [facility] 1.2.840.114 350.1.13.10 4.2.7.2.686 [id number] [facility] 2021-07-24 00:00:00 2021-07-24 00:00:00 Patient Secure Msg Doctor Unassigned, [place] [facility] 1.2840.114 350.1.13.10 4.2.7.2.686 [id number] [facility] 2021-07-23 00:00:00 2021-07-23 00:00:00 Case Management Kevin Pulido [facility] 1.284.114 350.1.13.10 4.2.7.2.686 [id number] [facility] 2021-07-21 13:30:00 2021-07-21 14:34:26 Outpatient R ASHOK KEVIN [facility] [id number] [facility] 2021-07-21 13:05:17 2021-07-21 14:34:26 Office Visit Kevin Pulido [facility] Building 1.2.840.114 350.1.13.10 4.2.7.2.686 [id number] [facility] 2021-06-24 15:00:00 2021-06-24 15:00:00 Outpatient R GIUSEPPE MONTANO [facility] [id number] [facility] 2021-06-24 15:00:00 2021-06-24 15:00:00 Office Visit Giuseppe Montano [facility] BUILDING 1.2.840.114 350.1.13.10 4.2.7.2.686 [id number] [facility] 2021-06-24 15:00:00 2021-06-24 15:00:00 Office Visit Giuseppe Montano [facility] BUILDING 1.2.840.114 350.1.13.10 4.2.7.2.686 [id number] [facility] 2021-06-24 15:00:00 2021-06-24 13:51:15 Outpatient R DUSTY [facility] [id number] [facility] 2021-06-24 15:00:00 2021-06-24 13:51:15 [facility] [id number] 2021-06-24 12:47:26 2021-06-24 13:51:15 Office Visit Giuseppe MontanoYumikoShawna [facility] 1.2.840.114 350.1.13.10 4.2.7.2.686 [id number] [facility] 2021-06-22 00:00:00 2021-06-22 00:00:00 Orders Only Doctor Unassigned, [place] [facility] 1.2840.114 350.1.13.10 4.2.7.2.686 [id number] [facility] 2021-06-18 16:11:08 2021-06-18 16:38:18 Nurse Visit Nurse, Jory Keyes [facility] 1.2840.114 350.1.13.10 4.2.7.2.686 [id number] [facility] 2021-06-18 09:20:00 2021-06-18 09:20:00 Outpatient R [facility] [id number] [facility] 2021-06-17 16:45:00 2021-06-17 16:45:00 Outpatient R MERRITT PETTIT [facility] [id number] [facility] 2021-06-17 08:18:26 2021-06-17 08:33:26 Laboratory Only Only, Adc Pob2 Test Merritt Pettit [facility] Building 1.2840.114 350.1.13.10 4.2.7.2.686 [id number] [facility] 2021-06-17 00:00:00 2021-06-17 00:00:00 Telephone Luma Mondragon [facility] 1.2840.114 350.1.13.10 4.2.7.2.686 [id number] [facility] 2021-05-28 00:00:00 2021-05-28 00:00:00 Letter (Out) Nuha Ayon [facility] 1.2.114 350.1.13.10 4.2.7.2.686 [id number] [facility] 2021-05-26 15:44:30 2021-05-26 16:50:40 [facility] [place] [facility]?Jeanne suarez [facility] Building 1.114 350.1.13.10 4.2.7.2.686 [id number] [facility] 2021-05-26 14:58:40 2021-05-26 15:13:40 Laboratory Only Only, Adc Pob2 Test Merritt Pettit [facility] [facility] 1.20.114 350.1.13.10 4.2.7.2.686 [id number] [facility] 2021-05-26 15:00:00 2021-05-26 15:00:00 Outpatient R MERRITT PETTIT [facility] [id number] [facility] 2021-05-24 00:00:00 2021-05-24 00:00:00 Refill Citlalli Sheikh [facility] 1.2840.114 350.1.13.10 4.2.7.2.686 [id number] [facility] 2021-05-13 10:00:00 2021-05-13 10:00:00 Outpatient R [facility] [id number] [facility] 2021-05-13 08:02:19 2021-05-13 08:22:19 Nurse Visit Nurse, Lorena Cruz Jory [facility] 1.2.840.114 350.1.13.10 4.2.7.2.686 [id number] [facility] 2021-05-07 09:00:00 2021-05-07 09:00:00 Outpatient R CITLALLI SHEIKH [facility] [id number] [facility] 2021-05-04 09:08:24 2021-05-04 09:28:24 Nurse Visit Nurse, Flroy Hays [facility] 1.2.840.114 350.1.13.10 4.2.7.2.686 [id number] [facility] 2021-05-04 09:20:00 2021-05-04 09:20:00 Outpatient R [facility] [id number] [facility] 2021-04-29 11:41:29 2021-04-29 11:45:38 Nurse Visit Nurse, Lorena Cruz [facility] 1.2.840.114 350.1.13.10 4.2.7.2.686 [id number] 225 [id number] [facility] 2021-04-29 11:20:00 2021-04-29 11:20:00 Outpatient R [facility] [id number] [facility] 2021-03-29 15:00:00 2021-03-29 15:00:00 Outpatient R [facility] [id number] [facility] 2021-03-09 00:00:00 2021-03-09 00:00:00 Telephone Team, [facility] 1.20.114 350.1.13.10 4.2.7.2.686 [id number] [facility] 2021-01-28 00:00:00 2021-01-28 00:00:00 Refill [facility] 1.20.114 350.1.13.10 4.2.7.2.686 [id number] 134 [id number] [facility] 2021-01-26 00:00:00 2021-01-26 00:00:00 Refill AdCitlalli butt [facility] 1.20.114 350.1.13.10 4.2.7.2.686 [id number] 134 [id number] [facility] 2021-01-21 16:50:00 2021-01-21 16:50:00 Outpatient MERRITT PITTMAN [facility] [id number] [facility] 2021-01-20 16:50:00 2021-01-20 16:50:00 Outpatient CLIFF ESCOBAR [facility] [id number] [facility] 2021-01-06 00:00:00 2021-01-06 00:00:00 Telephone Sawyer Erin [facility] 1.20.114 350.1.13.10 4.2.7.2.686 [id number] [facility] 2021-01-05 15:29:12 2021-01-05 15:32:26 Screening Tech Visit Lab, Jory Keyes [facility] 1.2840.114 350.1.13.10 4.2.7.2.686 [id number] [facility] 2021-01-05 11:45:00 2021-01-05 11:45:00 Outpatient R [facility] [id number] [facility] 2020-12-17 13:00:00 2020-12-17 13:00:00 Outpatient HOUSTON MILLER [facility] [id number] [facility] 2020-11-21 00:00:00 2020-11-21 00:00:00 Telephone Ami Reid [facility] 1.0.114 350.1.13.10 4.2.7.2.686 [id number] [facility] 2020-11-20 13:00:00 2020-11-20 13:00:00 Outpatient HOUSTON MILLER [facility] [id number] [facility] 2020-11-19 15:19:22 2020-11-19 15:19:40 Screening Tech Visit Lab, Flory Hays [facility] 1.114 350.1.13.10 4.2.7.2.686 [id number] [facility] 2020-11-19 11:45:00 2020-11-19 11:45:00 Outpatient FLORY MCKAY [facility] [id number] [facility] 2020-10-27 09:30:00 2020-10-27 09:30:00 Outpatient CITLALLI WELCH [facility] [id number] [facility] 2020-10-26 00:00:00 2020-10-26 00:00:00 Letter (Out) Nany, [facility] 1.840.114 350.1.13.10 4.2.7.2.686 [id number] [facility] 2020-10-26 00:00:00 2020-10-26 00:00:00 Letter (Out) [facility] 1.840.114 350.1.13.10 4.2.7.2.686 [id number] [facility] 2020-10-26 00:00:00 2020-10-26 00:00:00 Patient Secure Msg Doctor Unassigned, [place] [facility] 1.114 350.1.13.10 4.2.7.2.686 [id number] [facility] 2020-10-23 13:52:39 2020-10-23 14:07:39 Screening Tech Visit Lab, Kal Baeza [facility] 1.114 350.1.13.10 4.2.7.2.686 [id number] [facility] 2020-10-23 08:00:00 2020-10-23 08:00:00 Outpatient Delma SHEIKH [facility] [id number] [facility] 2020-10-21 09:30:00 2020-10-21 09:30:00 Outpatient CITLALLI WELCH [facility] [id number] [facility] 2020-10-20 13:10:00 2020-10-20 13:10:00 Outpatient R CLIFF ANDRES [facility] [id number] [facility] 2020-10-06 00:00:00 2020-10-06 00:00:00 Telephone Vesta Murphy [facility] 1.114 350.1.13.10 4.2.7.2.686 [id number] [facility] 2020-10-05 09:44:03 2020-10-05 09:46:41 Screening Tech Visit Lab, Alva Wesley [facility] 1.114 350.1.13.10 4.2.7.2.686 [id number] [facility] 2020-10-05 08:45:00 2020-10-05 08:45:00 Outpatient R [facility] [id number] [facility] 2020-09-29 14:44:29 2020-09-29 16:21:38 Urgent Care Provider, [facility] Jansen [facility] Office Building One 1.114 350.1.13.10 4.2.7.2.686 [id number] [facility] 2020-09-29 15:20:00 2020-09-29 15:20:00 Outpatient R [facility] [id number] [facility] 2020-09-28 12:48:48 2020-09-28 14:01:43 Nurse Visit Nurse, Kal Baeza [facility] 1.114 350.1.13.10 4.2.7.2.686 [id number] [facility] 2020-09-28 10:20:00 2020-09-28 10:20:00 Outpatient KAL FREEMAN [facility] [id number] [facility] 2020-09-22 14:25:00 2020-09-22 14:25:00 Outpatient CLIFF ESCOBAR [facility] [id number] [facility] 2020-09-02 00:00:00 2020-09-02 00:00:00 Orders Only Doctor Unassigned, [place] [facility] . 350.1.13.10 4.2.7.2.686 [id number] [id number] [facility] 2020-08-24 09:49:07 2020-08-24 10:48:02 Office Visit Hortensia Balderas [facility] Office Building One 1.114 350.1.13.10 4.2.7.2.686 [id number] [facility] 2020-08-24 10:30:00 2020-08-24 10:30:00 Outpatient HORTENSIA MELISSA [facility] [id number] [facility] 2020-08-13 02:30:00 2020-08-15 04:36:00 Hospital Encounter Keagan Vargas Carlos Adrian [facility] 1.2.840.114 350.1.13.10 4.2.7.2.686 [id number] [facility] 2020-08-07 15:46:11 2020-08-07 16:06:11 Nurse Visit NurseLorena Lee [facility] 1.2840.114 350.1.13.10 4.2.7.2.686 [id number] [facility] 2020-08-07 10:50:00 2020-08-07 10:50:00 Outpatient R [facility] [id number] [facility] 2020-08-03 11:50:22 2020-08-03 11:50:35 Nurse Visit NurseLorena Peter [facility] 1.2840.114 350.1.13.10 4.2.7.2.686 [id number] [facility] 2020-08-03 11:20:00 2020-08-03 11:20:00 Outpatient R GOKUL PERSAUD [facility] [id number] [facility] 2020-07-31 09:35:08 2020-07-31 10:16:50 Nurse Visit NurseLorena Lee [facility] 1.2840.114 350.1.13.10 4.2.7.2.686 [id number] [facility] 2020-07-31 09:35:08 2020-07-31 10:16:50 Nurse Visit Lorena Harrell [facility] 1.2840.114 350.1.13.10 4.2.7.2.686 [id number] 2020-07-31 08:40:00 2020-07-31 08:40:00 Outpatient R [facility] [id number] [facility] 2020-07-02 00:00:00 2020-07-02 00:00:00 Orders Only Doctor Unassigned, [place] [facility] 1.2.840.114 350.1.13.10 4.2.7.2.686 [id number] [facility] 2020-07-02 00:00:00 2020-07-02 00:00:00 Orders Only Doctor Unassigned, [place] [facility] 1.2.840.114 350.1.13.10 4.2.7.2.686 [id number] 2020-07-01 00:00:00 2020-07-01 00:00:00 Telephone Flory Nagy [facility] 1.2.840.114 350.1.13.10 4.2.7.2.686 [id number] 225 [id number] [facility] 2020-07-01 00:00:00 2020-07-01 00:00:00 Telephone Flory Nagy [facility] 1.2.840.114 350.1.13.10 4.2.7.2.686 [id number] 225 [id number] 2020-06-29 14:51:11 2020-06-29 16:24:52 Nurse Visit NurseLorena Amy C [facility] 1.2.840.114 350.1.13.10 4.2.7.2.686 [id number] [facility] 2020-06-29 14:51:11 2020-06-29 16:24:52 Nurse Visit NurseLorena [facility] 1.2.840.114 350.1.13.10 4.2.7.2.686 [id number] 2020-06-29 10:50:00 2020-06-29 10:50:00 Outpatient R [facility] [id number] [facility] 2020-06-29 00:00:00 2020-06-29 00:00:00 Refill Lorenza Pearson [facility] Office Building One 1.0.114 350.1.13.10 4.2.7.2.686 [id number] [id number] [facility] 2020-06-29 00:00:00 2020-06-29 00:00:00 Refill Lorenza Pearson [facility] Building One 1.0.114 350.1.13.10 4.2.7.2.686 [id number] 044 [id number] 2020-06-23 16:11:55 2020-06-23 16:26:55 Screening Tech Visit Lab, Kal Baeza [facility] 1..114 350.1.13.10 4.2.7.2.686 [id number] [facility] 2020-06-23 11:15:00 2020-06-23 11:15:00 Outpatient R [facility] [id number] [facility] 2020-06-19 00:00:00 2020-06-19 00:00:00 Refill Lorenza Pearson [facility] Office Building One 1..114 350.1.13.10 4.2.7.2.686 [id number] [facility] 2020-06-12 11:03:51 2020-06-12 16:29:23 Office Visit Gokul Persaud [facility] [place] [facility] 1..114 350.1.13.10 4.2.7.2.686 [id number] [facility] 2020-06-12 11:00:00 2020-06-12 11:00:00 Outpatient R GOKUL PERSAUD [facility] [id number] [facility] 2020-06-05 15:40:00 2020-06-05 15:40:00 Outpatient R GOKUL PERSUAD [facility] [id number] [facility] 2020-06-05 13:41:38 2020-06-05 14:38:52 Office Visit Gokul Persaud [facility] 1.20.114 350.1.13.10 4.2.7.2.686 [id number] [facility] 2020-06-05 13:40:00 2020-06-05 13:40:00 Outpatient R GOKUL PERSAUD [facility] [id number] [facility] 2020-06-03 13:08:01 2020-06-03 23:59:00 Hospital Encounter Gokul Persaud [facility] 1.0.114 350.1.13.10 4.2.7.2.686 [id number] [facility] 2020-06-03 12:51:08 2020-06-03 13:11:08 Laboratory Only Lab, Adc Fam Pob Lorenza Wells [facility] Office Building One 1.114 350.1.13.10 4.2.7.2.686 [id number] [facility] 2020-06-03 13:00:00 2020-06-03 13:00:00 Outpatient R LORENZA PEARSON [facility] [id number] [facility] 2020-06-03 00:00:00 2020-06-03 00:00:00 Orders Only Doctor Unassigned, [place] [facility] 1.0.114 350.1.13.10 4.2.7.2.686 [id number] [facility] 2020-06-02 00:00:00 2020-06-02 00:00:00 Patient Secure Msg Gokul Persaud [facility] 1.20.114 350.1.13.10 4.2.7.2.686 [id number] [facility] 2020-05-29 12:21:14 2020-05-29 13:01:14 Telemedici ne Visit Gokul Persaud [facility] 1.114 350.1.13.10 4.2.7.2.686 [id number] [facility] 2020-05-29 13:00:00 2020-05-29 13:00:00 Outpatient R GOKUL PERSAUD [facility] [id number] [facility] 2020-05-27 00:00:00 2020-05-27 00:00:00 Telephone Neel Pearsonliclare Cardenas [facility] Office Building One 1.114 350.1.13.10 4.2.7.2.686 [id number] [facility] 2020-05-22 15:39:16 2020-05-22 23:59:00 Hospital Encounter Lorenza Pearson [facility] 1.114 350.1.13.10 4.2.7.2.686 [id number] [facility] 2020-05-22 14:48:51 2020-05-22 16:12:53 Urgent Care Pob1, Acute Care Clinic Faiza Jansenthia [facility] Office Building One 1.114 350.1.13.10 4.2.7.2.686 [id number] [facility] 2020-05-22 15:00:00 2020-05-22 15:00:00 Outpatient R GI JANSEN [facility] [id number] [facility] 2020-05-20 00:00:00 2020-05-20 00:00:00 Refill Erick Ann [facility] Office Building One 1.114 350.1.13.10 4.2.7.2.686 [id number] [facility] 2020-05-09 14:00:00 2020-05-09 14:00:00 Outpatient R GI JANSEN [facility] [id number] [facility] 2020-05-09 13:04:32 2020-05-09 13:24:32 Laboratory Only Lab, [facility] 1.114 350.1.13.10 4.2.7.2.686 [id number] [facility] 2020-05-09 00:00:00 2020-05-09 00:00:00 Telephone Alonso Ames [facility] Office Building One 1.114 350.1.13.10 4.2.7.2.686 [id number] [facility] 2020-05-05 13:12:18 2020-05-05 23:59:00 Hospital Encounter AdCitlalli butt [facility] 1..114 350.1.13.10 4.2.7.2.686 [id number] [facility] 2020-05-05 14:01:07 2020-05-05 15:21:05 Office Visit AdCitlalli butt [facility] Building 1.2114 350.1.13.10 4.2.7.2.686 [id number] [facility] 2020-05-05 14:30:00 2020-05-05 14:30:00 Outpatient R CITLALLI SHEIKH [facility] [id number] [facility] 2020-05-04 00:00:00 2020-05-04 00:00:00 Telephone Giuseppe Montano [facility] 1.114 350.1.13.10 4.2.7.2.686 [id number] [facility] 2020-05-03 00:00:00 2020-05-03 00:00:00 Telephone Josh White [facility] 1.2.114 350.1.13.10 4.2.7.2.686 [id number] [facility] 2020-05-03 00:00:00 2020-05-03 00:00:00 Letter (Out) Nuha Ayon Lynette [facility] 1..114 350.1.13.10 4.2.7.2.686 [id number] [facility] 2020-05-03 00:00:00 2020-05-03 00:00:00 Patient Secure Msg Doctor Unassigned, [place] [facility] 1.0.114 350.1.13.10 4.2.7.2.686 [id number] [facility] 2020-05-02 13:01:37 2020-05-02 13:21:37 Laboratory Only Lab, [facility] 1..114 350.1.13.10 4.2.7.2.686 [id number] [facility] 2020-05-02 13:00:00 2020-05-02 13:00:00 Outpatient GI FISCHER [facility] [id number] [facility] 2020-04-30 07:58:13 2020-04-30 08:18:13 Laboratory Only Lab, [facility] One 1.114 350.1.13.10 4.2.7.2.686 [id number] [facility] 2020-04-30 08:00:00 2020-04-30 08:00:00 Outpatient GI FISCHER [facility] [id number] [facility] 2020-04-28 13:37:53 2020-04-28 14:47:52 Urgent Care Provider, [facility] Gi Jansen [facility] Office Building One 1.2840.114 350.1.13.10 4.2.7.2.686 [id number] [facility] 2020-04-28 13:40:00 2020-04-28 13:40:00 Outpatient R GI JANSEN [facility] [id number] [facility] 2020-04-22 10:06:01 2020-04-24 09:48:57 Screening Tech Visit Lab, Kal Baeza [facility] 1.2840.114 350.1.13.10 4.2.7.2.686 [id number] [facility] 2020-04-24 00:00:00 2020-04-24 00:00:00 Case Management Addaquan Citlalli Gerard [facility] 1.2.840.114 350.1.13.10 4.2.7.2.686 [id number] [facility] 2020-04-24 00:00:00 2020-04-24 00:00:00 Patient Secure Msg AdCitlalli butt [facility] 1.2.840.114 350.1.13.10 4.2.7.2.686 [id number] [facility] 2020-04-22 10:15:00 2020-04-22 10:15:00 Outpatient R [facility] [id number] [facility] 2020-04-21 15:50:33 2020-04-21 17:02:58 Office Visit Kori Citlalli Gerard [facility] 1.2.840.114 350.1.13.10 4.2.7.2.686 [id number] [facility] 2020-04-21 16:00:00 2020-04-21 16:00:00 Outpatient R CITLALLI SHEIKH [facility] [id number] [facility] 2020-04-07 11:15:00 2020-04-07 11:15:00 Outpatient R CITLALLI SHEIKH [facility] [id number] [facility] 2020-04-02 00:00:00 2020-04-02 00:00:00 Patient Secure Msg Doctor Unassigned, [place] [facility] 1.114 350.1.13.10 4.2.7.2.686 [id number] [facility] 2020-04-01 11:38:45 2020-04-01 11:58:45 Laboratory Only Lab, [facility] Fam Pob Sarah Conner [facility] Office Building One 1. 350.1.13.10 4.2.7.2.686 [id number] [facility] 2020-04-01 11:20:00 2020-04-01 11:20:00 Outpatient R SARAH MAHMOOD [facility] [id number] [facility] 2020-03-25 08:25:07 2020-03-25 08:45:07 Laboratory Only Lab, Adc Fam Lorenza Selby [facility] Office Building One .114 350.1.13.10 4.2.7.2.686 [id number] [facility] 2020-03-25 08:40:00 2020-03-25 08:40:00 Outpatient R LORENZA PEARSON [facility] [id number] [facility] 2020-03-25 00:00:00 2020-03-25 00:00:00 Orders Only Doctor Unassigned, [place] [facility] .114 350.1.13.10 4.2.7.2.686 [id number] [facility] 2020-03-24 11:19:39 2020-03-24 11:38:34 Nurse Visit Nurse, Kal Baeza [facility] 1.2.840.114 350.1.13.10 4.2.7.2.686 [id number] [facility] 2020-03-24 10:40:00 2020-03-24 10:40:00 Outpatient R [facility] [id number] [facility] 2020-03-24 00:00:00 2020-03-24 00:00:00 Case Management Helen Ugalde [facility] 1.2840.114 350.1.13.10 4.2.7.2.686 [id number] [facility] 2020-03-16 00:00:00 2020-03-16 00:00:00 Case Management Helen Ugalde [facility] 1.2.840.114 350.1.13.10 4.2.7.2.686 [id number] [facility] 2020-03-13 09:16:34 2020-03-13 09:16:49 Nurse Visit Nurse, Helen Bermudez [facility] 1.2840.114 350.1.13.10 4.2.7.2.686 [id number] [facility] 2020-03-13 09:00:00 2020-03-13 09:00:00 Outpatient R HELEN UGALDE [facility] [id number] [facility] 2020-02-06 00:00:00 2020-02-06 00:00:00 Telephone Lorenza Pearson [facility] 1.2.840.114 350.1.13.10 4.2.7.2.686 [id number] [facility] 2020-02-05 09:52:24 2020-02-05 10:09:44 Urgent Care Pob1, Acute Care Clinic Gokul Persaud Leslie A [facility] Office Building One 1.2.840.114 350.1.13.10 4.2.7.2.686 [id number] [facility] 2020-02-05 10:00:00 2020-02-05 10:00:00 Outpatient R GOKUL PERSAUD [facility] [id number] [facility] 2020-01-23 13:30:00 2020-01-23 13:30:00 Outpatient R KEVIN PULIDO [facility] [id number] [facility] 2019-12-25 18:00:00 2019-12-25 18:00:00 Outpatient R UNKNOWN, ATTENDING [facility] [id number] [facility] 2019-12-20 00:00:00 2019-12-20 00:00:00 Refill Kevin Pulido [facility] Building 1..840.114 350.1.13.10 4.2.7.2.686 [id number] 134 [id number] [facility] 2019-12-20 00:00:00 2019-12-20 00:00:00 Patient Secure Msg Kevin Pulido [facility] Building 1..840.114 350.1.13.10 4.2.7.2.686 [id number] 134 [id number] [facility] 2019-12-19 00:00:00 2019-12-19 00:00:00 Refill Kevin Pulido [facility] Building 1..840.114 350.1.13.10 4.2.7.2.686 [id number] 134 [id number] [facility] 2019-09-13 00:00:00 2019-09-13 00:00:00 Patient Secure Msg Doctor Unassigned, [place] [facility] 1.2.840.114 350.1.13.10 4.2.7.2.686 [id number] [facility] 2019-05-16 08:24:54 2019-05-16 23:59:00 Hospital Encounter MacBeth-Gi Duque [facility] 1.84114 350.1.13.10 4.2.7.2.686 [id number] [facility] 2019-05-09 00:00:00 2019-05-09 00:00:00 Orders Only Doctor Unassigned, [place] [facility] 1.84.114 350.1.13.10 4.2.7.2.686 [id number] [facility] 2019-05-06 00:00:00 2019-05-06 00:00:00 Refill Kevin Pulido [facility] Malena Bell [facility] 1.840.114 350.1.13.10 4.2.7.2.686 [id number] 134 [id number] [facility] Results Test Description Test Time Test Comments Results Result Co mments Source [facility] Urinalysis w/o Specific [id number] 16:46:00* Test Item Value Reference Range Interpretation [...] internal controls Lab Interpretation (test code = 53773-3) Normal [facility] SARS-COV-2 ANTIGEN (BINAX NOW)2023-08-07 19:08:00* Test Item Value Reference Range Interpretation Comme nts POCT SARS-COV-2 ANTIGEN (khadar t code = 39374-2) Positive Not Detected A On board controls acceptable with C Line (test code = 3574) Yes Lab Interpretation (test cod e = 64634-7) Abnormal [facility] SARS-COV-2 ANTIGEN (BINAX NOW)2023-08-04 19:46:00* Test Item Value Reference Range Interpretation Comme nts POCT SARS-COV-2 ANTIGEN (khadar t code = 45137-2) Positive Not Detected A On board controls acceptable with C Line (test code = 3574) Yes Lab Interpretation (test cod e = 62042-4) Abnormal [facility] URINALYSIS W SPECIFIC [id number] 21:20:00* Test Item Value Reference Range Interpretation [...] U APPEAR (test code = 3267) clear [facility] URINALYSIS W SPECIFIC [id number] 21:20:00* Test Item Value Reference Range Interpretation [...] U APPEAR (test code = 3267) clear [facility] SARS-COV-2 ANTIGEN (BINAX NOW)2023-03-24 23:56:00* Test Item Value Reference Range Interpretation Comme nts POCT SARS-COV-2 ANTIGEN (khadar t code = 64683-2) Not Detected Not Detected On board controls acceptable with C Line (test code = 3574) Yes Lab Interpretation (test cod e = 66571-7) Normal [facility] MOLECULAR [id number] 22:28:51* Test Item Value Reference Range Interpretation Comme nts POCT Molecular Strep (test c ode = 10178-6) Negative Negative Lab Interpretation (test cod e = 50546-1) Normal [facility] MOLECULAR [id number] 22:28:51* Test Item Value Reference Range Interpretation Comme nts POCT Molecular Strep (test c ode = 90843-5) Negative Negative Lab Interpretation (test cod e = 92191-8) Normal [facility] URINALYSIS W SPECIFIC [id number] 16:56:00* Test Item Value Reference Range Interpretation [...] Cloudy Lab Interpretation (test cod e = 82265-8) Abnormal [facility] URINALYSIS W SPECIFIC [id number] 16:56:00* Test Item Value Reference Range Interpretation [...] Cloudy Lab Interpretation (test cod e = 15622-4) Abnormal [facility] URINALYSIS W SPECIFIC [id number] 16:56:00* Test Item Value Reference Range Interpretation [...] Cloudy Lab Interpretation (test cod e = 56719-9) Abnormal [facility] URINALYSIS W SPECIFIC [id number] 16:56:00* Test Item Value Reference Range Interpretation [...] Cloudy Lab Interpretation (test cod e = 29329-0) Abnormal [facility] URINALYSIS W/O SPECIFIC [id number] 16:43:00* Test Item Value Reference Range Interpretation [...] = 3257) Negative - Negati ve [facility] URINALYSIS W/O SPECIFIC [id number] 16:43:00* Test Item Value Reference Range Interpretation [...] code = 3257) Negative - Negati ve [facility] MOLECULAR [id number] 21:41:44* Test Item Value Reference Range Interpretation Comme nts POCT Molecular Strep (test c ode = 37754-1) Negative Negative Lab Interpretation (test cod e = 76882-7) Normal [facility] SARS-COV-2 ANTIGEN (BINAX NOW)2022-08-11 21:35:00* Test Item Value Reference Range Interpretation Comme nts POCT SARS-COV-2 ANTIGEN (test code = 39180-2) Not Detected Not Detected On board controls acceptable with C Line (test code = 3574) Yes ROSS (test code = ROSS) accurate developme nt and interpretation of all internal controls Lab Interpretation (test code = 17129-8) Normal [facility] MOLECULAR [id number] 21:33:35* Test Item Value Reference Range Interpretation Comme nts POCT Molecular FluA (test co de = 80840-6) Negative Negative POCT Molecular FluB (test co de = 61345-8) Negative Negative Lab Interpretation (test cod e = 82920-7) Normal [facility] Notes Date/Time Note Provider Source 2024-05-28 14:18:23 LILLIAN submitted, waiting for determination. [facility] 2024-05-28 13:48:07 Images from the original note were not included. Therese Barrow [facility] 2024-05-24 09:30:55 MUST BE SEEN FOR FURTHER REFILLS Recent Visits Date Type Provider Dept 01/15/24 Office Visit Сергей Morrison NP [facility] Family Medicine 10/06/23 Office Visit Vitaliy Jewell MD [facility] End[facility]inology 04/28/23 Office Visit Сергей Morrison NP [facility] Family Medicine 12/19/22 Office Visit Сергей Morrison NP [facility] Family Medicine Showing recent visits within past 540 days with a meds authorizing provider and meeting all other requirements Future Appointments No visits were found meeting these conditions. Showing future appointments within next 150 days with a meds authorizing provider and meeting all other requirements Leatha Yanes RN [facility] 2024-01-15 16:26:46 Images from the original [...] (01/15/2024) by Сергей Morrison NP Rx #: [id number] Pharmacy comment: Conflict with other medication, disease or allergy. Provider Review Required Cslxsz1901/15/2024 01:20 PM Protocol Details This refill cannot be delegated Valid encounter within last 12 months This request has changes from the previous prescription. To be filled at: [facility] [address] [place] [address] Routing to provider for review. Interaction/ allergies with patient. [facility] 2024-01-15 14:48:17 PA submitted, PA approved. T [facility] 2024-01-15 12:54:02 Images from the original note were not included. Antonia Yoder [facility] 2024-01-12 15:30:00 Images from the original note were not included. Patient has been identified by and name and was provided with cup, antiseptic towelette, and clean catch instructions. 1 urine specimen(s) sent. Unpreserved Urine Culture 1 Aptima tube Other urine T [facility] 2024-01-12 13:21:58 Patient has been informed of medication has been sent and UC ordered. Leatha Anderson MA [facility] 2024-01-12 13:15:32 Patient is requesting refill on chronic medication and have a urine culture placed. Patient finished antibiotic medication that was prescribed by her OBGYN. Patient is still being symptomatic and would like to have order placed. Last visit with OBGYN was 1 month ago Urine culture ordered 3 medications ordered [facility] 2024-01-12 12:37:07 Patient is requesting refill on chronic medication and have a urine culture placed. Patient finished antibiotic medication that was prescribed by her OBGYN. Patient is still being symptomatic and would like to have order placed. Leatha Anderson MA [facility] 2023-12-19 08:02:20 Images from the original note were not included. Requested Renewals ondansetron 4 mg disintegrating tablet Sig: Take 1 tablet by mouth every 8 (eight) hours as needed for Nausea and Vomiting (N/V). Disp: 30 tablet Refills: 01 Start: 12/18/2023 Class: eRX For: Nausea Last ordered: 4 months ago (08/04/2023) by Сергей Morrison NP Anti-nausea Uijzkj2912/18/2023 04:34 PM Protocol Details This refill cannot be delegated Manual Review: [facility] providers only allowed to refill requests. Valid encounter within last 12 months To be filled at: [address] 04-28-2023 NOV N/A Leatha Anderson MA [facility] 2023-11-13 11:21:22 Images from the original [...] (04/28/2023) by Сергей Morrison NP Allergy: hydroxyzine Rmfvyr8511/13/2023 11:06 AM Protocol Details Valid encounter within last 12 months Depression screening completed in the last 12 months To be filled at: [address] 04-28-2023 UCT DELIVERY SPECIALIST Leatha Anderson MA [facility] 2023-11-13 09:57:15 Pt requesting refill of Acyclovir. Symptoms started yesterday. Pt has a WWE appt on 03/14/2024. Refill sent. HELEN MCCARTNEY RN 11/13/2023 9:59 AM [facility] 2023-10-10 15:00:33 Corrected the prescription to reflect Vascepa 1 g 2 capsules twice daily. Does not need to take an extra dose of Vascepa in the lunchtime. [facility] 2023-10-09 09:39:22 LOVAZA, ioaer-7-azzg ethyl esters, 1 gram [id number] /9/2024--NoSig: Take 2 capsules by mouth in the morning and 2 capsules in the evening. Take with meals. Add one capsule at lunchSent to pharmacy as: omega-3 acid ethyl esters 1 gram capsuleClass: eRXRoute: OralOrder: [id number]/Time Signed: 10/03/2023 14:52E-Prescribing Status: Receipt confirmed by pharmacy (10/03/2023 2:52 PM [facility]) [facility] Chantale Arenas RN [facility] 2023-10-09 09:00:12 Amie Reid is a 47 year old female Pt calling needing LOVAZA, ivxcm-8-pcdy ethyl esters, 1 gram capsule medication instructions confirmed so they are able to dispense it. Please call back and assist. [facility] [address] [place] [id number] [facility] Huyen Silverman [facility] 2023-10-02 08:29:12 [facility] 03/14/2024. UCT DELIVERY SPECIALIST Ric Esquivel RN [facility] 2023-09-29 16:49:45 Amie Reid is a 47 year old female Cecil with [facility] [address] [place] [address] [facility] is notifying the clinic that the patient is allergic to terconazole 0.8 % vaginal cream. Please advise. Mcgowan [facility] 2023-09-29 16:20:49 Patient is asking for treatment for UTI UA and Culture done/Culture pending [facility] 2023-09-29 14:12:16 Patient is needing antibiotic for UTI and Cream for yeast. Anderson MA [facility] 2023-09-28 07:45:00 Images from the original note were not included. Venipuncture collection performed by clean technique on the right anticubitus. Total of 1 attempts were made. Slight pressure and a bandage/dressing were applied to the site(s). The patient experienced no complications. The following specimens were processed according to instructions and sent to [facility] laboratories per lab order on 09/28/2023 : LT BLUE SST 1 RED LAV 1 PPT DK GREEN (LiHep) DK GREEN (SodH) BANRES DK BLUE (K2) DK BLUE (S) ACD Blood Culture NIPT/NTD Patient has been identified by and name and was provided with cup, antiseptic towelette, and clean catch instructions. 2 urine specimen(s) sent. Unpreserved 1 Urine Culture 1 Aptima tube Other urine [facility] 2023-05-05 09:37:07 Formatting of this n ote might be different from the original. Spoke with patient, patient stated pharmacy never received the prescription for Snehal 2. Spoke with pharmacist and they never received the order. I went head and placed order again for patient. [facility] 2023-05-01 09:43:40 Formatting of this n ote might be different from the original. PA sent through covermeds, waiting for determination. Diclofenac Sodium 1 % gel - approved Jennifer Paul RN [facility] 2023-04-28 16:00:00 Formatting of this n [...] processed according to instructions and sent to [facility] laboratories per lab order on 04/28/2023 : LT BLUE SST 2 RED LAV 1 PPT DK GREEN (LiHep) DK GREEN (SodH) BARNES DK BLUE (K2) DK BLUE (S) ACD Blood Culture NIPT/NTD Avelina Lamas [facility] 2023-04-28 16:00:00 Formatting of this n [...] elevated, may have to consider starting Lipitor. [facility] 2023-04-28 16:00:00 Addended by: GIUSEPPE MONTANO on: 05/02/2023 08:46 PM Modules accepted: Orders [facility]
[2024-06-02] MEDS ORDERED: MORPHINE 4 MG/ML SYR ONE ×2 (02:40→04:24)
[2024-06-02 03:10] LABS: MPV 8.5 fL (7.6-11.3); Nucleated Red Blood Cells % 0.2 % (0-0); Platelets 274 thou/uL (152-406)
[2024-06-02 03:28] LABS: Absolute Basophils 0.1 K/uL (0-0.5); Absolute Eosinophils 0.2 K/uL (0-0.5); Absolute Lymphocytes (CBC) 2.8 K/uL (0.7-4.9); Absolute Monocytes 0.7 K/uL (0.1-1.3); Absolute Neutrophil 8.3 K/uL (1.8-8.0); Basophils % 0.5 % (0-1.3); Eosinophils % 1.3 % (0-4.4); Hematocrit 37.3 % (36.0-45.0); Hemoglobin 12.9 g/dL (12.0-15.0); Lymphocytes % 23.5 % (15.3-44.8); MCH 30.2 pg (27.0-35.0); MCHC 34.7 g/dL (32.0-36.0); Monocytes % 5.7 % (3.3-12.3); RBC Red Blood Cell Count 4.28 M/uL (3.86-4.86); Red Cell Distribution Width 13.3 % (12.1-15.2)
[2024-06-02 03:40] LABS: ALT/SGPT 51 U/L (13-56); Albumin 3.3 g/dL (3.4-5.0); Albumin/Globulin Ratio 0.7 (1.1-1.8); Alkaline Phosphatase 106 U/L (45-117); Anion Gap 12.8 mEq/L (5.0-15.0); BUN Blood Urea Nitrogen 8 mg/dL (7-18); Bicarbonate 22 mEq/L (21-32); Bilirubin Total 0.7 mg/dL (0.2-1.0); Globulin 4.5 g/dL (2.3-3.5); Glomerular Filtration Rate 42 ml/min (=/>90); Glucose Level 375 mg/dL (74-106); Lipase 1368 U/L (13-75); Protein, Total 7.8 g/dL (6.4-8.2); Sodium Level 125 mEq/L (136-145)
[2024-06-02 03:41] LABS: AST/SGOT 52 U/L (15-37); Potassium 3.8 mEq/L (3.5-5.1); Troponin High Sensitivity < 3.0 pg/mL (<58.9)
[2024-06-02 04:28] LABS: HDL Cholesterol 23 mg/dL (40-60)
[2024-06-02 04:49] LABS: LDL, Direct 104 mg/dL (100-129)
--- NOTE | 2024-06-02 04:54 | EDPHYS ---
Physician Documentation [facility] Name: Amie Irizarry Age: 48 yrs Sex: Female : 1975 Arrival Date: 06/02/2024 Time: 02:22 Bed 2 Private MD: ED Physician Ignacio Fuentes HPI: 06/02 02:48 This 48 yrs old Female presents to ER via Unassigned with complaints of rn abdominal pain. 02:48 The patient presents with abdominal pain in the epigastric area. Onset: The rn symptoms/episode began/occurred just prior to arrival. The symptoms radiate to back. Associated signs and symptoms: Pertinent positives: nausea and vomiting, Pertinent negatives: chest pain, fever. Modifying factors: The symptoms are alleviated by nothing, the symptoms are aggravated by touching the area. Severity of pain: At its worst the pain was moderate in the emergency department the pain is unchanged. The patient has experienced a previous episode. Patient reports seen here yesterday for strokelike symptoms. Was discharged after negative CT head and angio. Patient states symptoms never completely resolved but did slightly improve. Patient reports left facial weakness and left arm weakness since 8 PM 2 nights ago. Patient reports was sleeping and woke up with epigastric abdominal pain that radiates to the back associated with nausea and vomiting. Has a history of pancreatitis and does not have a gallbladder.. 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 - Infectious Disease History:: Denies. - Family history:: not pertinent. - Social history:: Smoking status: Patient denies any tobacco usage or history of. Patient/guardian denies using alcohol, street drugs, IV drugs. - Hospitalizations: : No recent hospitalization is reported. ROS: 02:48 Constitutional: Negative for fever, chills, and weight loss, Cardiovascular: Negative rn for chest pain, palpitations, and edema, Respiratory: Negative for shortness of breath, cough, wheezing, and pleuritic chest pain, Abdomen/GI: Positive for epigastric abdominal pain with nausea and vomiting MS/Extremity: Negative for injury and deformity, Skin: Negative for injury, rash, and discoloration, Neuro: Negative for headache, weakness, numbness, tingling, and seizure, Exam: 02:48 Constitutional: This is a well developed, well nourished patient who is awake, alert, rn appears anxious and uncomfortable Head/Face: Normocephalic, atraumatic. Cardiovascular: Regular rate and rhythm. No pulse deficits. Respiratory: No increased work of breathing, no retractions or nasal flaring. Abdomen/GI: Soft, epigastric tenderness, no rebound. No masses. Neuro: Awake and alert, GCS 15, oriented to person, place, time, and situation. Left facial weakness with lower face more pronounced in upper, there does seem to be upper facial weakness though. Motor strength 5/5 in all extremities. Sensory grossly intact. Able to undress herself without assistance. 03:50 ECG was reviewed by the Attending Physician. rn Vital Signs: 02:40 BP 155 / 103; Pulse 117; Resp 18; Temp 100.3; Pulse Ox 96% ; Weight 63.5 kg; Height 5 jj7 ft. 2 in. ; Pain 10/10; 03:49 BP 118 / 83; Pulse 97; Resp 17; Pulse Ox 94% ; jj7 04:45 BP 113 / 83; Pulse 99; Resp 16; Pulse Ox 94% ; jj7 05:44 BP 118 / 92; Pulse 95; Resp 16; Pulse Ox 95% ; jj7 02:40 Body Mass Index 25.61 (63.50 kg, 157.48 cm) 7 02:40 Pain Scale: Adult jj7 MDM: 02:27 Patient medically screened. rn 04:52 Differential diagnosis: bowel obstruction, gastritis, gastroesophageal reflux disease, rn non-specific abd pain, pancreatitis, Peptic Ulcer Disease, Perf. Duodenal Ulcer, Perf. Gastric Ulcer. Data reviewed: vital signs, nurses notes, lab test result(s), radiologic studies, CT scan, and as a result, I will discharge patient. Counseling: I had a detailed discussion with the patient and/or guardian regarding the historical points, exam findings, and any diagnostic results supporting the discharge/admit diagnosis, lab results, radiology results, the need for further work-up and treatment in the hospital. Response to treatment: the patient's symptoms have mildly improved after treatment, and as a result, I will admit patient. ED course: Patient with acute pancreatitis, has had cholecystectomy, states last time pancreatitis was secondary to hypertriglyceridemia. Will admit to hospitalist service for further care.. 06/02 02:37 Order name: CBC with Diff; Complete Time: 03:41 rn 06/02 02:37 Order name: CMP; Complete Time: 04:50 rn 06/02 02:37 Order name: Lipase; Complete Time: 04:50 rn 06/02 02:37 Order name: Troponin High Sensitivity; Complete Time: 04:50 rn 06/02 04:07 Order name: Lipid Profile; Complete Time: 04:50 EDMS 06/02 04:34 Order name: LDL, Direct; Complete Time: 04:50 EDMS 06/02 06:06 Order name: Thyroid Stimulating Hormone EDMS 06/02 06:06 Order name: CBC with Automated Diff EDMS 06/02 06:06 Order name: CBC with Automated Diff EDMS 06/02 06:06 Order name: Comprehensive Metabolic Panel EDMS 06/02 06:06 Order name: Comprehensive Metabolic Panel EDMS 06/02 06:06 Order name: Lipase EDMS 06/02 06:06 Order name: Lipase EDMS 06/02 06:06 Order name: Lipid Profile EDMS 06/02 06:06 Order name: Lipid Profile EDMS 06/02 06:06 Order name: Lipid Profile EDMS 06/02 06:06 Order name: Lipid Profile EDMS 06/02 07:07 Order name: Glucose, Ancillary Testing EDMS 06/02 08:21 Order name: Glucose, Ancillary Testing EDMS 06/02 08:21 Order name: Glucose, Ancillary Testing EDMS 06/02 02:37 Order name: CT Head Brain wo Cont rn 06/02 03:19 Order name: Abdomen EDMS 06/02 06:06 Order name: CONS Physician Consult EDMS 06/02 02:37 Order name: IV Saline Lock; Complete Time: 02:51 rn 06/02 02:37 Order name: Labs collected and sent; Complete Time: 02:51 rn 06/02 02:37 Order name: EKG - Nurse/Tech; Complete Time: 02:50 rn EC:50 Rate is 105 beats/min. Rhythm is regular. QRS [place] is Normal. MA interval is normal. rn QRS interval is normal. QT interval is normal. No Q waves. T waves are Normal. No ST changes noted. Clinical impression: Sinus tachycardia. Interpreted by me. Reviewed by me. Administered Medications: 02:51 Drug: morphine IVP or IV 4 mg IVP once over 4 mins Route: IVP; Infused Over: 4 mins; jj7 Site: right antecubital; 03:10 Follow up: Response: Marked relief of symptoms; Pain is decreased jj7 02:51 Drug: Ondansetron IVP 4 mg IVP once; over 2 minutes Route: IVP; Site: right antecubital;jj7 03:10 Follow up: Response: Marked relief of symptoms; Nausea is decreased jj7 04:27 Drug: morphine IVP or IV 4 mg IVP once over 4 mins Route: IVP; Infused Over: 4 mins; jj7 Site: right antecubital; 05:31 Follow up: Response: Marked relief of symptoms; Pain is decreased jj7 Disposition Summary: 06/02/24 04:54 Hospitalization Ordered Notes: Hospitalization Status: Observation rn Provider: Cory Doshi rn Condition: Stable rn Problem: new rn Symptoms: have improved rn Bed/Room Type: Standard rn Location: Intensive Care Unit(06/02/24 07:50) eb Room Assignment: 1-(06/02/24 07:50) eb Diagnosis - Acute pancreatitis without necrosis or infection, unspecified rn Forms: - Medication Reconciliation Form rn - SBAR form rn - Leadership Thank You Letter rn Signatures: Dispatcher [employer] Fanny Gray RN RN dw Nieto, Roman, MD MD rn Baxter, Heather, RN RN hb Botello, Elizabeth eb Johnson, Juwairiyah, RN RN jj7 Corrections: (The following items were deleted from the chart) 02:37 02:37 CBC+H.LAB.BRZ ordered. EDMS EDMS 02:37 02:37 COMPREHENSIVE METABOLIC PANEL+C.LAB.BRZ ordered. EDMS EDMS 02:37 02:37 LIPASE+C.LAB.BRZ ordered. EDMS EDMS 02:37 02:37 Abdomen Pelvis W Con+CT.RAD.BRZ ordered. EDMS EDMS 02:38 02:38 Head Brain Wo Cont+CT.RAD.BRZ ordered. EDMS EDMS 02:38 02:38 Troponin High Sensitivity+C.LAB.BRZ ordered. EDMS EDMS 04:35 04:02 LIPID PROFILE+C.LAB.BRZ ordered. EDMS EDMS 07:39 04:54 Telemetry/MedSurg (observation) rn hb 07:39 04:54 rn hb 07:49 07:39 Intensive Care Unit dw 07:49 07:39 1- hb dw 07:50 07:49 BR ER HOLD eb 07:50 07:49 eb
--- NOTE | 2024-06-02 04:54 | ER ---
Nurse's Notes [facility] Name: Amie Irizarry Age: 48 yrs Sex: Female : 1975 Arrival Date: 06/02/2024 Time: 02:22 Bed 2 Private MD: Diagnosis: Acute pancreatitis without necrosis or infection, unspecified Presentation: 06/02 02:40 Chief complaint: Patient states: WAS SEEN AND DISCHARGED YESTERDAY FOR STROKE SYMPTOMS. jj7 NOW HAVING UPPER ABD PAIN AND N/V. Coronavirus screen: At this time, the client does not indicate any symptoms associated with coronavirus-19. Ebola Screen: No symptoms or risks identified at this time. Initial Sepsis Screen: Does the patient meet any 2 criteria? No. Patient's initial sepsis screen is negative. Does the patient have a suspected source of infection? No. Patient's initial sepsis screen is negative. Risk Assessment: Do you want to hurt yourself or someone else? Patient reports no desire to harm self or others. Onset of symptoms was June 02, 2024. 02:40 Method Of Arrival: Ambulatory [facility] 02:40 Acuity: JOSÉ 3 jj7 Triage Assessment: 02:40 General: Appears in no apparent distress. uncomfortable, Behavior is calm, cooperative, jj7 appropriate for age, crying. Pain: Complains of pain in epigastric area Pain radiates to back Pain currently is 10 out of 10 on a pain scale. GI: Abdomen is tender to palpation in epigastric area Reports upper abdominal pain, nausea, vomiting. 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 - Infectious Disease History:: Denies. - Family history:: not pertinent. - Social history:: Smoking status: Patient denies any tobacco usage or history of. Patient/guardian denies using alcohol, street drugs, IV drugs. - Hospitalizations: : No recent hospitalization is reported. Screenin:40 [facility] ED Fall Risk Assessment (Adult) History of falling in the last 3 months, jj7 including since admission No falls in past 3 months (0 pts) Confusion or Disorientation No (0 pts) Intoxicated or Sedated No (0 pts) Impaired Gait No (0 pts) Mobility Assist Device Used No (0 pt) Altered Elimination No (0 pt) Score/Fall Risk Level 0 - 2 = Low Risk Oriented to surroundings, Maintained a safe environment, Educated pt \T\ family on fall prevention, incl call for assistance when getting out of bed, Assessed \T\ reinforced patient's understanding of fall precautions. Abuse screen: Denies threats or abuse. Nutritional screening: No deficits noted. Tuberculosis screening: No symptoms or risk factors identified. Assessment: 02:40 Neuro: Level of Consciousness is awake, alert, obeys commands, Oriented to person, jj7 place, time, situation, Appropriate for age WEAKNESS TO LEFT SIDE. Vital Signs: 02:40 BP 155 / 103; Pulse 117; Resp 18; Temp 100.3; Pulse Ox 96% ; Weight 63.5 kg; Height 5 j7 ft. 2 in. ; Pain 10/10; 03:49 BP 118 / 83; Pulse 97; Resp 17; Pulse Ox 94% ; jj7 04:45 BP 113 / 83; Pulse 99; Resp 16; Pulse Ox 94% ; jj7 05:44 BP 118 / 92; Pulse 95; Resp 16; Pulse Ox 95% ; jj7 02:40 Body Mass Index 25.61 (63.50 kg, 157.48 cm) jj7 02:40 Pain Scale: Adult jj7 ED Course: 02:26 Patient arrived in ED. lg3 02:27 Ignacio Fuentes MD is Attending Physician. rn 02:38 Magy Moore RN is Primary Nurse. jj7 02:40 Arm band placed on right wrist. Patient placed in an exam room, on a stretcher. jj7 02:40 Patient has correct armband on for positive identification. Placed in gown. Bed in low jj7 position. Call light in reach. Side rails up X 1. Provided Education on: USE OF CALL YOUSSEF. Warm blanket given. 02:45 Inserted saline lock: 20 gauge in right antecubital area, using aseptic technique. jj7 Blood collected. Flushed with 10 mL NS. 02:51 EKG done, by ED staff. af3 03:07 Triage completed. jj7 03:19 Abdomen In Process Unspecified. EDMS 03:20 CT Head Brain wo Cont In Process Unspecified. EDMS 04:53 Cory Doshi MD is Hospitalizing Provider. rn 05:32 Diet: Patient given water. Tolerated well. jj7 07:15 Report given to JAH RN. jj7 Administered Medications: 02:51 Drug: morphine IVP or IV 4 mg IVP once over 4 mins Route: IVP; Infused Over: 4 mins; jj7 Site: right antecubital; 03:10 Follow up: Response: Marked relief of symptoms; Pain is decreased jj7 02:51 Drug: Ondansetron IVP 4 mg IVP once; over 2 minutes Route: IVP; Site: right antecubital;jj7 03:10 Follow up: Response: Marked relief of symptoms; Nausea is decreased jj7 04:27 Drug: morphine IVP or IV 4 mg IVP once over 4 mins Route: IVP; Infused Over: 4 mins; jj7 Site: right antecubital; 05:31 Follow up: Response: Marked relief of symptoms; Pain is decreased jj7 Medication: 02:40 VIS not applicable for this client. jj7 Outcome: 04:54 Decision to Hospitalize by Provider. rn 08:42 Patient left the ED. eb Signatures: Dispatcher [employer] Ignacio Valiente MD MD rn Botello, Elizabeth eb Able, Lacie RN RN lg3 Magy Moore RN RN jj7 Rose Martinez af3
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
[2024-06-02] MEDS ORDERED: HYDRALAZINE HCL 20 MG/ML VIAL IV PRN (06:02)
[2024-06-02] MEDS ORDERED: D50W 25 GM/50 ML SYRINGE IV PRN (06:03)
[2024-06-02] MEDS ORDERED: GLUCAGON 1 MG/VIAL IM PRN ×2 (06:03→18:06)
[2024-06-02] MEDS ORDERED: D10W 125 ML IV PRN ×2 (06:10→18:06)
[2024-06-02] MEDS ORDERED: INSULIN REGULAR (HUMAN) 100 UNIT/ML ONE (07:02)
[2024-06-02] MEDS ORDERED: NA CHLORIDE 0.9% 100 ML ONE (07:02)
[2024-06-02] MEDS: INSULIN REGULAR, HUMAN 100 UNIT in NA CHLORIDE 0.9% 100 ML IV SCH (07:13)
[2024-06-02] MEDS ORDERED: MORPHINE 2 MG/ML SYR ONE (08:15)
[2024-06-02] MEDS: ONDANSETRON 4 MG/2 ML VIAL IV PRN ×2 (08:29→13:00)
[2024-06-02] MEDS: MORPHINE 2 MG/ML SYR IV PRN (08:34)
[2024-06-02 09:10] LABS: Thyroid Stimulating Hormone 1.06 uIU/mL (0.358-3.740)
[2024-06-02] MEDS: ENOXAPARIN 40 MG/0.4 ML SQ SCH (10:18)
[2024-06-02] MEDS: CEFEPIME 1 GM in NA CHLORIDE 0.9% 100 ML IV SCH (10:18)
[2024-06-02] MEDS: FAMOTIDINE 20 MG/2 ML VIAL IV SCH (10:19)
[2024-06-02] MEDS: HYDROMORPHONE HCL 0.5 MG/0.5 ML INJ IV ONE (10:44)
[2024-06-02 12:05] LABS: Specific Gravity > 1.030 (1.005-1.030); Sqamous Epithelial <5 /HPF (None Seen); Urine Bacteria None Seen /HPF (<20); Urine Bilirubin NEGATIVE (Negative); Urine Blood Negative (Negative); Urine Clarity Clear (Clear); Urine Color Light-Yellow (Yellow); Urine Culture Reflex Order NOT NEEDED; Urine Glucose 4+ (Over) (Negative); Urine Ketones 3+ (Negative); Urine Microscopic Reflex YN ORDER UMIC; Urine Nitrite NEGATIVE (Negative); Urine Protein 1+ (Negative); Urine RBC <5 /HPF (None Seen); Urine Urobilinogen Normal (Normal); Urine WBC <5 /HPF (<5); Urine pH 5.5 (5.0-7.0)
[2024-06-02] MEDS: HYDROMORPHONE HCL 0.5 MG/0.5 ML INJ IV PRN (13:01)
[2024-06-02] MEDS: D5 0.45 NS 1,000 ML IV SCH (15:00)
[2024-06-02] MEDS ORDERED: D5 0.9 NS 1,000 ML IV SCH (15:00)
[2024-06-02] MEDS: D5 0.45 NS 500 ML IV SCH (15:14)
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
[2024-06-02 17:13] LABS: Anion Gap 14.5 mEq/L (5.0-15.0); Potassium 3.5 mEq/L (3.5-5.1)
[2024-06-02] MEDS: NA CHLORIDE 0.9% 1,000 ML IV SCH (18:19)
[2024-06-02] MEDS: gemfibroziL 600 MG TAB PO SCH (20:30)
[2024-06-02] MEDS: DOCOSAHEXANOIC AC/EPA 1000 MG PO SCH (20:31)
[2024-06-02] MEDS: INSULIN REGULAR (HUMAN) 100 UNIT/ML IV SCH (20:33)
--- NOTE | 2024-06-02 20:49 | P.PN ---
Date of Service: 06/02/24 Subjective Patient still having epigastric pain. Patient also with persistent left-sided facial weakness. Continue with gentle hydration. Sodium on June 01 was 134. With dehydration and it dropped down the next day to 127. Will hydrate and will correct sodium. Patient with pancreatitis secondary to hypertriglyceridemia secondary to noncompliance with her Tricor and fish oil. She has not taken it in about a month. We have gone ahead and resumed her medications. Continue with IV fluids. Continue with pain control. N.p.o. at this time. Will get neurology consultation for left-sided facial weakness. Physical Examination -Vitals Reviewed -Physical Exam General: Alert, In no apparent distress, Oriented x3, Cooperative Neck: 2+ carotid pulse no bruit, JVD not distended Respiratory: Clear to auscultation bilaterally, Normal air movement Cardiovascular: No edema, Regular rate/rhythm, Normal S1 S2 Gastrointestinal: Normal bowel sounds, No masses, No rebound, Tenderness (Generalized) Musculoskeletal: No clubbing, No swelling Neurological: Left-sided facial weakness but otherwise no significant abnormalities Assessment and Plan - Problems (Diagnosis) (1) Hyponatremia Current Visit: YES Status: Acute (2) Acute pancreatitis secondary to hypertriglyceridemia Current Visit: YES Status: Acute (3) Wilder's palsy Current Visit: YES Status: Acute (4) Type 2 diabetes Current Visit: YES Status: Acute (5) Hypertension Current Visit: YES Status: Acute (6) Acute kidney injury Current Visit: YES Status: Acute - Plan 1. Acute pancreatitis secondary to hypertriglyceridemia with severe dehydration and hyponatremia; continue with insulin drip and IV fluids. Repeat triglyceride levels. Continue with IV fluids with D5 and NS. Slowly correct sodium. Repeat lipase level as well. Continue with n.p.o. at this time. Continue with pain control. 2. Wilder's palsy; neurology consultation and continue with conservative management. Patient to use steroids and antivirals in the past with some improvement. 3. Metabolic syndrome; strict blood pressure and blood sugar control 4. BULMARO with hyponatremia; continue with IV hydration and monitor renal function as well as sodium level. - Advance Directives Does patient have a Living Will: No Does patient have a Durable POA for Healthcare: No
[2024-06-02 23:31] LABS: Anion Gap 17.1 mEq/L (5.0-15.0)
[2024-06-02 23:43] LABS: Potassium 4.1 mEq/L (3.5-5.1)
[2024-06-03] MEDS ORDERED: GLUCAGON 1 MG/VIAL IM PRN (00:14)
[2024-06-03] MEDS ORDERED: D50W 25 GM/50 ML SYRINGE IV PRN (00:14)
[2024-06-03] MEDS: INSULIN REGULAR, HUMAN 100 UNIT in NA CHLORIDE 0.9% 100 ML IV SCH (01:05)
[2024-06-03] MEDS: D5 0.9 NS 1,000 ML IV SCH ×2 (01:05→12:48)
[2024-06-03 04:25] LABS: Absolute Basophils 0.1 K/uL (0-0.5); Absolute Eosinophils 0.1 K/uL (0-0.5); Absolute Lymphocytes (CBC) 2.4 K/uL (0.7-4.9); Absolute Monocytes 0.9 K/uL (0.1-1.3); Absolute Neutrophil 9.2 K/uL (1.8-8.0); Basophils % 0.8 % (0-1.3); Eosinophils % 0.4 % (0-4.4); Hematocrit 36.4 % (36.0-45.0); Hemoglobin 13.1 g/dL (12.0-15.0); Lymphocytes % 19.2 % (15.3-44.8); MCH 31.3 pg (27.0-35.0); Monocytes % 6.7 % (3.3-12.3); Neutrophils % 72.9 % (41.7-73.7); Platelets 257 thou/uL (152-406); RBC Red Blood Cell Count 4.18 M/uL (3.86-4.86)
[2024-06-03 04:49] LABS: HDL Cholesterol 31 mg/dL (40-60)
[2024-06-03 05:02] LABS: LDL, Direct 77 mg/dL (100-129)
[2024-06-03 05:04] LABS: Albumin 2.7 g/dL (3.4-5.0); Albumin/Globulin Ratio 0.6 (1.1-1.8); Anion Gap 15.6 mEq/L (5.0-15.0); Bilirubin Total 0.7 mg/dL (0.2-1.0); Globulin 4.2 g/dL (2.3-3.5); Protein, Total 6.9 g/dL (6.4-8.2)
[2024-06-03 05:05] LABS: Potassium 3.6 mEq/L (3.5-5.1)
[2024-06-03 05:06] LABS: Magnesium 1.7 mg/dL (1.6-2.4)
[2024-06-03 05:13] LABS: Band Neutrophils 21 % (0-1); Blood Morphology Comment NOT SEEN (NOT SEEN); Differential Total Cells Count 100; Eosinophils 1 % (0-3); Lymphocytes 21 % (15-42); Monocytes 3 % (0-10); Platelet Estimate ADEQ; Reactive Lymphocytes 2 %; Segmented Neutrophils 52 % (40-80)
[2024-06-03 05:56] LABS: Phosphorus 2.1 mg/dL (2.5-4.9)
[2024-06-03] MEDS: POTASSIUM PHOS IN 0.9 % NACL 15 MMOL/250 ML BAG IV ONE (08:50)
[2024-06-03] MEDS: MAGNESIUM SULFATE 1 gm IVPB 1 GM/100 ML BAG IV ONE (08:50)
--- NOTE | 2024-06-03 09:22 | RAD REPORT ---
EXAM DESCRIPTION: CT Head Without Intravenous Contrast CLINICAL HISTORY: The patient is 48 years old and is Female; Vomiting, left facial weakness and arm weakness. TECHNIQUE: Axial computed tomography images of the head/brain without intravenous contrast. Sagitt al and coronal reformatted images were created and reviewed. This CT exam was performed using one o r more of the following dose reduction techniques: automated exposure control, adjustment of the mA and/or kV according to patient size, and/or use of iterative reconstruction technique. COMPARISON: CT Head 06/01/2024. FINDINGS: BRAIN: Low-lying cerebellar tonsils without overt herniation or Chiari malformation. No extra-axial fluid collection. No intracranial hemorrhage. No transtentorial herniation. No focal wiseman-white matter differentiation abnormality. MIDLINE SHIFT: No midline shift. VENTRICLES: Unremarkable No ventriculomegaly. BONES/JOINTS: No fracture of the calvarium or visualized facial bones. SOFT TISSUES: Unremarkable SINUSES: No masses, bony erosion or evidence of acute sinusitis. MASTOID AIR CELLS: Unremarkable as visualized. No mastoid effusion. IMPRESSION: No acute intracranial abnormality. If symptoms persist, recommend further evaluation by brain MRI. Electronically signed by: Cecil Rivera MD 06/02/2024 04:21 AM CDT RP Due to temporary technical issues with the PACS/Fluency reporting system, reports are being signed by the in house radiologists without review as a courtesy to insure prompt reporting. The interpreting radiologist is fully responsible for the content of the report.
--- NOTE | 2024-06-03 10:12 | P.PN ---
Subjective Date of Service: 06/03/24 Chief Complaint: Abdominal pain Pt is complaining of abdominal pain. She is NPO and getting insulin drip. Triglyceride is 1782 <- 3260. Lipase is 3957 <- 1368. No other complaints. Review of Systems General: Unremarkable Eyes: Unremarkable ENT: Unremarkable Respiratory: Unremarkable Cardiovascular: Unremarkable Gastrointestinal: Abdominal Pain Genitourinary: Unremarkable Musculoskeletal: Unremarkable Integumentary: Unremarkable Neurological: Unremarkable Lymphatics: Unremarkable Physical Examination - Vital Signs Temperature: 97.5 F Blood Pressure: 135/90 Pulse: 93 Respirations: 22 Pulse Ox (%): 90 - Physical Exam General: Alert, In no apparent distress, Oriented x3 HEENT: Atraumatic, Normocephalic, PERRLA Neck: Supple, 2+ carotid pulse no bruit, JVD not distended Respiratory: Clear to auscultation bilaterally, Normal air movement, Diminished Cardiovascular: No edema, Normal pulses, Regular rate/rhythm, Normal S1 S2 Capillary refill: <2 Seconds Gastrointestinal: Normal bowel sounds, Soft and benign, Non-distended, Tenderne ss Musculoskeletal: No clubbing, No swelling, No contractures Integumentary: No rashes, No breakdown, No significant lesion Neurological: Normal gait, Normal speech, Normal strength at 5/5 x4 extr Lymphatics: No axilla or inguinal lymphadenopathy Assessment And Plan - Plan Acute pancreatitis: Due to high triglyceride. Lipase is 3957 <- 1368. Triglyceride is 1782 <- 3260. Will continue insulin drip and IVF. Pt is NPO. Will continue Gemfibrozil and fish oil. Hyponatremia: Na is 135. Will monitor Na level. Hx of Wilder's Palsy: Will continue conservative management. Pt used steroid and anti-virals in the past. DM : Will continue accuchek, SSI and ADA diet when able to eat. BULMARO: resolved. Cr is 0.69. Will avoid nephrotoxins and monitor renal function Htn: Continue home med. DVT ppx: SCD Dispo: pending hospital course.
[2024-06-03 10:35] LABS: Anion Gap 13.7 mEq/L (5.0-15.0)
[2024-06-03 10:37] LABS: Potassium 3.7 mEq/L (3.5-5.1)
--- NOTE | 2024-06-03 10:57 | RAD REPORT ---
EXAM DESCRIPTION: CT ABDOMEN PELVIS WITHOUT IV CONTRAST CLINICAL HISTORY: Nausea / vomiting. COMPARISON: CT Abdomen Pelvis without IV contrast 11/15/2022. TECHNIQUE: CT images of the abdomen and pelvis obtained without contrast. Multiplanar reformats were provided. Dose-optimization techniques such as automated exposure control, iterative reconstruction, and mA and/or kV adjustment for patient size was utilized for this examination. FINDINGS: LOWER CHEST: Unremarkable. LIVER: Diffuse fatty infiltration of the liver without focal lesion. BILIARY: Status post cholecystectomy with surgical clips at gallbladder fossa. No intra- or extrahepa tic biliary ductal dilatation. PANCREAS: The pancreatic head appears edematous with peripancreatic stranding and trace fluid, sugges ting acute pancreatitis. The pancreatic body and tail are mildly generous in size but without signifi cant peripancreatic infiltrates. SPLEEN: Unremarkable. ADRENALS: Unremarkable. KIDNEYS/URETERS: Unremarkable. BOWEL/STOMACH: Mildly thickened duodenum, likely reactive due to duodenitis. No bowel obstruction. MESENTERY/PERITONEUM: No significant free fluid. No focal collection. No pneumoperitoneum. RETROPERITONEUM: Shotty retroperitoneal lymph nodes are seen. URINARY BLADDER: Unremarkable. REPRODUCTIVE: Unremarkable. VASCULAR: No aortic aneurysm. ABDOMINAL/PELVIC WALL: Unremarkable. BONES: Unremarkable. IMPRESSION: 1. Acute pancreatitis primarily involving the pancreatic head. No focal collection. 2. Hepatic steatosis. Electronically signed by: Anna Ambriz MD 06/02/2024 05:09 AM CDT Due to temporary technical issues with the PACS/Fluency reporting system, reports are being signed by the in house radiologists without review as a courtesy to insure prompt reporting. The interpreting radiologist is fully responsible for the content of the report.
--- NOTE | 2024-06-03 17:01 | EKG ---
Test Date: 2024-06-02 Test Time: 02:47:58 Slip Maker: AF MEASUREMENT RESULTS: Intervals: Rate: 105 SD: 140 QRSD: 76 QT: 344 QTc: 454 [place]oup: P: 66 SD: 140 QRS: 67 T: 66 INTERPRETIVE STATEMENTS: Sinus tachycardia Otherwise normal ECG Compared to ECG 06/01/2024 04:34:15 Sinus rhythm no longer present Electronically Signed On 06-03-24 16:58:48 CDT by Noel Rocha
--- NOTE | 2024-06-03 18:37 | RAD REPORT ---
EXAM DESCRIPTION: CT - Head Brain W/Wo Con - 06/03/2024 6:26 pm CLINICAL HISTORY: Left-sided weakness COMPARISON: May 2024 TECHNIQUE: Computed axial tomography of the head was obtained. Unenhanced and enhanced images obtain ed. 50 cc Isovue-[address] scans are performed using dose optimization technique as appropriate and may include automated exposure control or mA/KV adjustment according to patient size. FINDINGS: An intracranial bleed is not seen The ventricles are normal in caliber No extra-axial fluid collection is noted. No abnormal enhancement seen Mild cerebellar tonsillar ectopia Fluid within the sinuses/ mastoids is not seen IMPRESSION: No acute intracranial abnormality is seen. If patient's symptoms persist MRI of the brain would be recommended
--- NOTE | 2024-06-03 19:03 | PN ---
Date of Progress Note: 06/03/2024 Chief Complaint: Acute kidney injury, hyponatremia. Subjective: The patient is a 48-year-old woman with history of hypertension, hyperlipidemia, diabete s mellitus, history of hypertriglyceridemia-induced pancreatitis in the setting of . The p young came to the hospital with persistent nausea, vomiting, and abdominal pain. She is admitted fo r acute pancreatitis. Nephrology is consulted for acute kidney injury. Baseline creatinine level us ually 0.6 to 0.8. Serum creatinine level was found to be 0.9 and increased to 1.5. The patient has nonoliguric urine output. She is on IV fluids. She was started on normal saline last night for hypo natremia. Review of Systems: Denies chest pain, palpitation. Physical Examination: Lungs: Clear to auscultation bilaterally. Heart: S1, S2. Abdomen: Soft, benign. Extremities: No edema. Impression And Plan: 1.Acute kidney injury, nonoliguric. Serum creatinine increased to 1.5. Renal function is stabilizi ng. The patient has prerenal azotemia secondary to acute pancreatitis. Acute kidney injury due to r enal hypoperfusion. Continue IV fluids. Continue normal saline. Urinalysis showed high specific gr avity and mild proteinuria, but no hematuria and no pyuria. CT scan is unremarkable. There is no ev idence of obstructive uropathy. Monitor renal panel. Monitor phosphorus and magnesium levels when t he patient is on limited p.o. intake. Continue IV fluids with normal saline. Avoid hypotonic fluids . 2.Hyponatremia. On arrival to the hospital, sodium level was 125, although corrected sodium level w as 130. Avoid nephrotoxic medication. Avoid hypotonic fluids. 3.Diabetes mellitus type 2, hypertriglyceridemia. Management per primary team. JUNIOR/MODL Voice ID: [id number] Report ID: [id number]
[2024-06-03] MEDS: METHYLPREDNISOLONE 125 MG INJ IV SCH (20:19)
[2024-06-04 05:32] LABS: Absolute Lymphocytes (CBC) 0.9 K/uL (0.7-4.9); Absolute Monocytes 0.2 K/uL (0.1-1.3); Absolute Neutrophil 6.8 K/uL (1.8-8.0); Basophils % 0.4 % (0-1.3); Hematocrit 33.8 % (36.0-45.0); Hemoglobin 11.3 g/dL (12.0-15.0); MCH 29.8 pg (27.0-35.0); MCHC 33.5 g/dL (32.0-36.0); MCV 89.1 fL (80-100); MPV 8.8 fL (7.6-11.3); Monocytes % 2.4 % (3.3-12.3); Neutrophils % 86.2 % (41.7-73.7); Platelets 194 thou/uL (152-406); RBC Red Blood Cell Count 3.79 M/uL (3.86-4.86); Red Cell Distribution Width 13.9 % (12.1-15.2)
[2024-06-04 05:54] LABS: ALT/SGPT 99 U/L (13-56); Albumin 2.3 g/dL (3.4-5.0); Albumin/Globulin Ratio 0.5 (1.1-1.8); Alkaline Phosphatase 99 U/L (45-117); Anion Gap 14.2 mEq/L (5.0-15.0); BUN Blood Urea Nitrogen 5 mg/dL (7-18); Bicarbonate 17 mEq/L (21-32); Bilirubin Total 0.7 mg/dL (0.2-1.0); Globulin 4.6 g/dL (2.3-3.5); Glomerular Filtration Rate 115 ml/min (=/>90); Glucose Level 265 mg/dL (74-106); HDL Cholesterol 34 mg/dL (40-60); Protein, Total 6.9 g/dL (6.4-8.2); Sodium Level 135 mEq/L (136-145)
[2024-06-04 06:05] LABS: AST/SGOT 97 U/L (15-37); Potassium 4.2 mEq/L (3.5-5.1)
[2024-06-04 06:16] LABS: LDL, Direct 101 mg/dL (100-129)
[2024-06-04] MEDS: SODIUM BICARB 325 MG TAB PO SCH (08:08)
--- NOTE | 2024-06-04 09:18 | P.PN ---
Subjective Date of Service: 06/04/24 Chief Complaint: Abdominal pain Pt is feeling a little better. She still has abdominal pain. CT head is unremarkable. Pt reports facial palsy and left hand numbness. She is NPO and getting insulin drip. Triglyceride is 738 <- 922<- 1782 <- 3260. Lipase is 3957 <- 1368. No other complaints. Review of Systems General: Unremarkable Eyes: Unremarkable ENT: Unremarkable Respiratory: Unremarkable Cardiovascular: Unremarkable Gastrointestinal: Abdominal Pain Genitourinary: Unremarkable Musculoskeletal: Unremarkable Integumentary: Unremarkable Neurological: Other (facial palsy and left hand numbness), Unremarkable Lymphatics: Unremarkable Physical Examination - Vital Signs Temperature: 97.0 F Blood Pressure: 135/98 Pulse: 115 Respirations: 16 Pulse Ox (%): 98 - Physical Exam General: Alert, In no apparent distress, Oriented x3 HEENT: Atraumatic, Normocephalic, PERRLA Neck: Supple, 2+ carotid pulse no bruit, JVD not distended Respiratory: Clear to auscultation bilaterally, Normal air movement Cardiovascular: No edema, Normal pulses, Regular rate/rhythm Capillary refill: <2 Seconds Gastrointestinal: Normal bowel sounds, Soft and benign, Non-distended, Tenderness Musculoskeletal: No clubbing, No swelling, No contractures Integumentary: No rashes, No breakdown, No significant lesion Neurological: Normal gait, Normal speech, Normal strength at 5/5 x4 extr Lymphatics: No axilla or inguinal lymphadenopathy Assessment And Plan - Plan Acute pancreatitis: Due to high triglyceride. Lipase is 387<- 3957 <- 1368. Triglyceride is 738 <- 922<-1782 <- 3260. Will continue cefepime, insulin drip and IVF. Pt is NPO. Will continue Gemfibrozil and fish oil. Hyponatremia: Na is 135. Will monitor Na level. Hx of Wilder's Palsy: Will continue solumedrol. CT head is unremarkable. Pt used steroid and anti-virals in the past. DM : Will continue accuchek, SSI and ADA diet when able to eat. BULMARO: resolved. Cr is 0.53 <- 0.69. Will avoid nephrotoxins and monitor renal function Htn: Continue home med. DVT ppx: SCD Dispo: pending hospital course.
[2024-06-04] MEDS: METHYLPREDNISOLONE 125 MG INJ IV ONE (09:27)
--- NOTE | 2024-06-04 10:09 | PN ---
Date of Progress Note: 06/04/2024 Subjective: The patient was admitted to the hospital with acute pancreatitis, questionable with acut e kidney injury. The patient's kidney function starting improving. Physical Examination: Vital Signs: Blood pressure 135/98, pulse of 115, afebrile. Chest: Clear to auscultation. Heart: S1, S2 regular. Abdomen: Soft. Mild tenderness. No guarding or rebound. Extremities: No edema. Neurologic: Alert. No focality. Laboratory Data: WBC 7.9, hemoglobin 11.3. Sodium 135, potassium 4.2, bicarb 17, chloride 108, BUN 5, creatinine 0.5, glucose 260, calcium 8.9. Triglycerides 738. Lipase is 387, trending down. TSH 1.0. Urinalysis negative for infection. Current Medications: The patient on include Lovenox, cefepime, Pepcid, sodium bicarb 650 b.i.d., Albertina u-Medrol, D5 half. Assessment And Plan: 1.Acute kidney injury secondary to prerenal, recovered, resolved. 2.Acidosis, hyperchloremic secondary to IV fluids. I am going to change the IV fluid to D5 LR at th e same rate and we will follow up. I agree with the oral bicarb for the time being. 3.Hyponatremia, depletional. Continue IV fluids. 4.Hypokalemia. We will monitor the patient. We will supplement p.r.n. 5.Acute pancreatitis with hypertriglyceridemia as by primary. Continue insulin drip. FANI/JOHNNIE Voice ID: [id number] Report ID: [id number]
[2024-06-04 11:30] LABS: UR PROTEIN 29.4 mg/dL (<11.9)
[2024-06-04 11:36] LABS: UR CREAT < 18.0 mg/dL (20-320)
[2024-06-04] MEDS: D5LR 1,000 ML IV SCH (12:25)
[2024-06-04] MEDS: ACETAMINOPHEN 500 MG TAB PO PRN (15:55)
[2024-06-04] MEDS: CEFEPIME 2 GM in NA CHLORIDE 0.9% 100 ML IV SCH (20:36)
[2024-06-05 05:44] LABS: Absolute Lymphocytes (CBC) 1.3 K/uL (0.7-4.9); Absolute Monocytes 0.5 K/uL (0.1-1.3); Absolute Neutrophil 7.9 K/uL (1.8-8.0); Basophils % 0.4 % (0-1.3); Hematocrit 30.6 % (36.0-45.0); Hemoglobin 10.5 g/dL (12.0-15.0); Lymphocytes % 12.9 % (15.3-44.8); MCH 29.6 pg (27.0-35.0); MCHC 34.2 g/dL (32.0-36.0); MCV 86.3 fL (80-100); MPV 8.6 fL (7.6-11.3); Monocytes % 5.4 % (3.3-12.3); Neutrophils % 81.3 % (41.7-73.7); Nucleated Red Blood Cells % 0.1 % (0-0); Platelets 219 thou/uL (152-406); RBC Red Blood Cell Count 3.55 M/uL (3.86-4.86); Red Cell Distribution Width 13.8 % (12.1-15.2)
[2024-06-05 06:09] LABS: Albumin 2.3 g/dL (3.4-5.0); Albumin/Globulin Ratio 0.5 (1.1-1.8); Anion Gap 11.7 mEq/L (5.0-15.0); Bilirubin Total 0.4 mg/dL (0.2-1.0); Globulin 4.2 g/dL (2.3-3.5); Magnesium 1.8 mg/dL (1.6-2.4); Phosphorus 2.4 mg/dL (2.5-4.9); Potassium 3.7 mEq/L (3.5-5.1); Protein, Total 6.5 g/dL (6.4-8.2); Uric Acid 2.3 mg/dL (2.6-6.0)
[2024-06-05 06:32] VITALS: BMI 27.2
[2024-06-05] MEDS: POTASSIUM 25 MEQ EFFERV TAB PO ONE (08:00)
[2024-06-05] MEDS: MAGNESIUM SULFATE 1 gm IVPB 1 GM/100 ML BAG IV ONE ×2 (08:00→13:11)
--- NOTE | 2024-06-05 10:18 | P.PN ---
Subjective Date of Service: 06/05/24 Chief Complaint: Abdominal pain Pt is feeling a little better. She still has abdominal pain. CT head is unremarkable. The facial palsy and left hand numbness is improving. She is tolerating clear liquid diet. Will advance her diet. Will stop insulin drip after lunch. Triglyceride is 304<- 738 <- 922<- 1782 <- 3260. Lipase is 91<- 3957 <- 1368. No other complaints. Review of Systems General: Unremarkable Eyes: Unremarkable ENT: Unremarkable Respiratory: Unremarkable Cardiovascular: Unremarkable Gastrointestinal: Abdominal Pain Genitourinary: Unremarkable Musculoskeletal: Unremarkable Integumentary: Unremarkable Neurological: Unremarkable Lymphatics: Unremarkable Physical Examination - Vital Signs Temperature: 97.2 F Blood Pressure: 127/91 Pulse: 81 Respirations: 14 Pulse Ox (%): 98 - Physical Exam General: Alert, In no apparent distress, Oriented x3 HEENT: Atraumatic, Normocephalic, PERRLA Neck: Supple, 2+ carotid pulse no bruit, JVD not distended Respiratory: Clear to auscultation bilaterally, Normal air movement Cardiovascular: No edema, Normal pulses, Regular rate/rhythm Capillary refill: <2 Seconds Gastrointestinal: Normal bowel sounds, Soft and benign, Non-distended, Tenderness Musculoskeletal: No clubbing, No swelling, No contractures Integumentary: No rashes, No breakdown, No significant lesion, No tenderness/swelling Neurological: Normal gait, Normal speech, Normal strength at 5/5 x4 extr, Abnormal sensation (left hand numbness) Lymphatics: No axilla or inguinal lymphadenopathy Assessment And Plan - Plan Acute pancreatitis: Due to high triglyceride. Lipase is 91<- 387<- 3957 <- 1368. Triglyceride is 305<- 738 <- 922<-1782 <- 3260. Will continue cefepime, insulin drip and IVF. Pt is NPO. Will continue Gemfibrozil and fish oil. Pt is tolerating CLD. Will advancer her diet Hyponatremia: Na is 134 <- 135. Will monitor Na level. Hx of Wilder's Palsy: Will continue solumedrol. CT head is unremarkable. Pt used steroid and anti-virals in the past. DM : Will continue accuchek, SSI and ADA diet when able to eat. BULMARO: resolved. Cr is 0.53 <- 0.69. Will avoid nephrotoxins and monitor renal function Htn: Continue home med. DVT ppx: SCD Dispo: pending hospital course.
[2024-06-05] MEDS: METHYLPREDNISOLONE 125 MG INJ IV ONE (10:24)
[2024-06-05] MEDS: POTASSIUM CL SA 10 MEQ TAB PO ONE (11:10)
[2024-06-05] MEDS: Magnesium Sulfate 2gm IVPB 2 G/50 ML BAG IV ONE (12:15)
[2024-06-05] MEDS: INSULIN LISPRO 100 UNIT/1 ML SQ SCH (16:09)
--- NOTE | 2024-06-05 17:23 | PN ---
Date of Progress Note: 06/05/2024 Subjective: The patient was admitted to the hospital with acute pancreatitis secondary to hypertrigl yceridemia. Patient was placed on insulin drip. Triglyceride has been trending down. Patient start ed on oral diet. The patient developed acute kidney injury and acidosis. After hydration, kidney fu nction has been improved. Objective: Vital Signs: Blood pressure 127/90, pulse of 81, afebrile. Chest: Clear to auscultation. Heart: S1, S2. Regular. Abdomen: Soft. Mild tenderness. No guarding or rebound. Extremities: No edema. Neuro: Alert. No focality. Laboratory Data: WBC 9.7, hemoglobin 10.5. Sodium 134, potassium 3.7, bicarb 21, BUN 7, creatinine 0.5, glucose 230, uric acid 2.3, calcium 9.5, phosphorus 2.4, magnesium 1.8. TSH of 1.06. Current Medications: The patient on, it includes cefepime, Lovenox, Tylenol, gemfibrozil, sodium bic arb oral, Zofran, LR. Assessment And Plan: 1.Acute kidney injury secondary to prerenal, recovered, resolved. 2.Hyponatremia, depletional. Continue IV hydration. 3.Acidosis. Non-anion gap metabolic acidosis secondary to IV fluid, recovered. Discontinue oral bi carb. Continue LR. We will monitor. 4.Hypertriglyceridemia, as by Primary. 5.Pancreatitis. The patient is going to advance diet and we will follow up. 6.Hypomagnesemia. We will supplement. FANI/JOHNNIE Voice ID: [id number] Report ID: [id number]
[2024-06-05] MEDS: INSULIN GLARGINE 100 UNIT/ML SQ SCH (20:23)
[2024-06-05] MEDS ORDERED: TRAMADOL HCL 50 MG TAB PO PRN (21:20)
[2024-06-05] MEDS: HYDROMORPHONE HCL 1 MG/ML INJ IV ONE (21:20)
[2024-06-05 21:43] VITALS: O2SAT 100
[2024-06-06 05:19] LABS: Absolute Lymphocytes (CBC) 2.2 K/uL (0.7-4.9); Absolute Monocytes 0.6 K/uL (0.1-1.3); Absolute Neutrophil 5.5 K/uL (1.8-8.0); Basophils % 0.6 % (0-1.3); Eosinophils % 0.1 % (0-4.4); Hematocrit 33.3 % (36.0-45.0); Hemoglobin 11.4 g/dL (12.0-15.0); MCH 29.6 pg (27.0-35.0); MCHC 34.2 g/dL (32.0-36.0); MCV 86.6 fL (80-100); MPV 8.2 fL (7.6-11.3); Monocytes % 7.6 % (3.3-12.3); Nucleated Red Blood Cells % 0.2 % (0-0); Platelets 275 thou/uL (152-406); RBC Red Blood Cell Count 3.85 M/uL (3.86-4.86); Red Cell Distribution Width 14.2 % (12.1-15.2)
[2024-06-06 05:27] LABS: Neutrophils % 65.7 % (41.7-73.7)
[2024-06-06 05:38] LABS: Albumin 2.6 g/dL (3.4-5.0); Albumin/Globulin Ratio 0.6 (1.1-1.8); Anion Gap 8.1 mEq/L (5.0-15.0); Bilirubin Total 0.6 mg/dL (0.2-1.0); Globulin 4.6 g/dL (2.3-3.5); Magnesium 2.1 mg/dL (1.6-2.4); Phosphorus 2.6 mg/dL (2.5-4.9); Potassium 4.1 mEq/L (3.5-5.1); Protein, Total 7.2 g/dL (6.4-8.2)
[2024-06-06 08:06] VITALS: TEMP 97.5
[2024-06-06] MEDS: INSULIN LISPRO 100 UNIT/1 ML SQ SCH (08:26)
[2024-06-06] MEDS: INSULIN GLARGINE 100 UNIT/ML SQ SCH (08:26)
[2024-06-06 08:39] LABS: HDL Cholesterol 34 mg/dL (40-60)
[2024-06-06 09:25] LABS: LDL, Direct 260 mg/dL (100-129)
--- NOTE | 2024-06-06 10:50 | P.DS ---
Admission Date: 06/02/24 Discharge Date: 06/06/24 Disposition: ROUTINE DISCHARGE Discharge Condition: GOOD Reason for Admission: Abdominal pain Brief History of Present Illness: 48-year-old female with history of hypertension, DM type II, hyperlipidemia, history of triglyceride induced pancreatitis in the setting of Ozempic use 1 day ago who presented because of recurrent generalized abdominal pain. Patient stated pain is more in the right upper quadrant. Eating all over. She admits to recurrent nausea and vomiting since yesterday. She rated pain at about 10 out of 10. She denies any fever or chills. She denies any diarrhea. Symptoms are similar to her previous pancreatitis episode. She states she was previously on long-acting insulin as well as Humalog but was taken off by an executive vice president business development and placed on Ozempic and glimepiride since the last 2 years. She states she has lost weight and dose of Ozempic was recently decreased from 1 mg to 0.5 mg. On arrival in the ED blood pressure was elevated but improved with pain medications, afebrile, CT of the abdomen and pelvis pending, laboratory workup shows BMP with sodium 125, elevated glucose of 357, mild anion gap metabolic acidosis, creatinine elevated at 1.54, CBC showed mild leukocytosis at 12,000 but normal neutrophil percentage, lipase was elevated at 1368, serum triglyceride markedly elevated at 3268. Patient is being admitted for recurrent acute pancreatitis from hypertriglyceridemia Hospital Course: Pt is a 48yo female with past medical history of hypertension, DM type II, hyperlipidemia, and triglyceride induced pancreatitis in the setting of Ozempic use 1 day ago who presented because of recurrent generalized abdominal pain. On admission, Lab studies showed BMP with sodium 125, elevated glucose of 357, mild anion gap metabolic acidosis, creatinine elevated at 1.54, CBC showed mild leukocytosis at 12,000 but normal neutrophil percentage, lipase was elevated at 1368, serum triglyceride markedly elevated at 3268. We admitted pt in the ICU for insulin drip to treat recurrent acute pancreatitis from hypertriglyceridemia. CT abd confirmed acute pancreatitis. We continue Insulin drip, IVF, cefepime, gemfibrozil, fish oil, and prn pain med. We kept pt NPO. The Lipase trended down(91<- 387<- 3957 <- 1368) and Triglyceride trended down(444<- 305<- 738 <- 922<-1782 <- 3260). Pt later tolerated clear liquid diet and we advanced her diet. Pt had facial numbness and left arm numbness due to will's palsy. CT head was unremarkable. We monitored electrolytes and continued home med for other chronic medical problems. Pt was advised to continue Gemfibrozil and fish oil at home. We stopped fenofibrate. Pt was in NAD prior to discharge. Vital Signs/Physical Exam: Temp Pulse Resp BP Pulse Ox 97.5 F 92 H 16 132/72 98 06/06/24 08:00 06/06/24 10:00 06/06/24 10:00 06/06/24 10:00 06/06/24 10:00 Laboratory Data at Discharge: WBC 8.30 thou/uL (4.3-10.9) 06/06/24 05:01 Hgb 11.4 g/dL (12.0-15.0) L D 06/06/24 05:01 Hct 33.3 % (36.0-45.0) L 06/06/24 05:01 Plt Count 275 thou/uL (152-406) 06/06/24 05:01 Sodium 132 mEq/L (136-145) L 06/06/24 05:01 Potassium 4.1 mEq/L (3.5-5.1) 06/06/24 05:01 BUN 16 mg/dL (7-18) 06/06/24 05:01 Creatinine 0.74 mg/dL (0.55-1.02) 06/06/24 05:01 Glucose 294 mg/dL (74-106) H 06/06/24 05:01 Uric Acid 2.3 mg/dL (2.6-6.0) L 06/05/24 05:16 Phosphorus 2.6 mg/dL (2.5-4.9) 06/06/24 05:01 Magnesium 2.1 mg/dL (1.6-2.4) 06/06/24 05:01 Total Bilirubin 0.6 mg/dL (0.2-1.0) 06/06/24 05:01 AST 26 U/L (15-37) 06/06/24 05:01 ALT 109 U/L (13-56) H 06/06/24 05:01 Alkaline Phosphatase 125 U/L (45-117) H 06/06/24 05:01 Triglycerides 444 mg/dL (<150) H 06/06/24 05:01 Cholesterol 436 mg/dL (<200) H 06/06/24 05:01 LDL Cholesterol Direct 260 mg/dL (100-129) H 06/06/24 05:01 HDL Cholesterol 34 mg/dL (40-60) L 06/06/24 05:01 Cholesterol/HDL Ratio 12.82 06/06/24 05:01 Lipase 91 U/L (13-75) H 06/05/24 05:16 Home Medications: Lisinopril/Hydrochlorothiazide [Lisinopril-Hctz 20-25 mg Tab] 1 each PO DAILY 06/08/19 Metoprolol Tartrate [Lopressor] 100 mg PO BID 06/08/19 Harold-3/Dha/Epa/Fish Oil [Fish Oil 1,000 mg Softgel] 2 each PO DAILY 11/13/22 Semaglutide [Ozempic] 0.5 mg SQ UD 11/13/22 glyBURIDE [Glyburide] 2.5 mg PO DAILY 06/02/24 Hydrocodone 5/APAP 325 [Mcguffey 5/325] 1 tab PO Q4H PRN 3 Days #18 tab 06/06/24 gemfibroziL [Lopid*] 600 mg PO BID 30 Days #60 tab 06/06/24 predniSONE [Deltasone] 40 mg PO DAILY 5 Days #5 tab 06/06/24 New Medications: gemfibroziL [Lopid*] 600 mg PO BID 30 Days #60 tab Hydrocodone 5/APAP 325 [Mcguffey 5/325] 1 tab PO Q4H PRN 3 Days #18 tab PRN Reason: Pain predniSONE [Deltasone] 40 mg PO DAILY 5 Days #5 tab Physician Discharge Instructions: Continue ad asya activity as tolerated. Take Gemfibrozil , fish oil, prednisone, and prn norco as prescribed. Stop taking fenofibrate. Follow up with PCP within ! - 2 weeks. Diet: AHA Activity: Ad asya Followup: Milton Deluca MD [Primary Care Provider] -
[2024-06-06 11:06] VITALS: BP 134/76
== END 2024-06-06 11:45 | disposition home or self-care (01) | DRG 439 ==
LOC: ER 02:22 → ERHOLD 05:59 → 3RD-ICU 08:11
PROVIDERS: ADMIT Internal Medicine; ATTEND Hospitalist
DX: K85.30 Drug induced acute pancreatitis without necrosis or infection (principal); E87.1 Hypo-osmolality and hyponatremia; N17.9 Acute kidney failure, unspecified; E87.20 Acidosis, unspecified; E78.1 Pure hyperglyceridemia; E86.0 Dehydration; G51.0 Bell's palsy; E87.6 Hypokalemia; I10 Essential (primary) hypertension; E83.42 Hypomagnesemia; E88.810 Metabolic syndrome; E11.65 Type 2 diabetes mellitus with hyperglycemia; E78.5 Hyperlipidemia, unspecified; T50.995A Adverse effect of other drugs, medicaments and biological substances, initial encounter; Z88.5 Allergy status to narcotic agent; Z63.5 Disruption of family by separation and divorce; Z88.8 Allergy status to other drugs, medicaments and biological substances; Z98.51 Tubal ligation status; Z79.52 Long term (current) use of systemic steroids; Z90.49 Acquired absence of other specified parts of digestive tract; Z79.899 Other long term (current) drug therapy; Z91.199 Patient's noncompliance with other medical treatment and regimen due to unspecified reason
CPT/HCPCS: 36415; 70450; 70470; 74176; 80048; 80053; 80061; 80069; 81001; 82570; 82947; 83690; 83735; 84100; 84132; 84156; 84443; 84478; 84484; 84550; 85025; 93005; 96374; 96375; 99284; J0692; J1170; J1650; J2270; J2405; J2919; J3475; J7030; J7042; J7121; J7799; Q9967